=== PATIENT | female | born 1935 | race Caucasian/White ===

== ENCOUNTER 2016-04-06 16:59 | Emergency (ER) | payer OTHER, BC ==
[2016-04-06 17:20] VITALS: BP 151/51; PULSE 83; BMI 26.0
--- NOTE | 2016-04-06 18:23 | PDOC ---
History of Present Illness - History of Present Illness Initial Comments: 04/06/16 19:19 Patient is an 80 year old female with significant medical hx of anemia, Afib, COPD, CHF, HTN, hyperlipidemia, hypothyroidism, ESRD (on dialysis MWF), and overactive bladder who is presenting to the ED with bleeding to dialysis site since today. Patient reports noticing her left arm fistula was bleeding after dialysis today. Today the patient went for a full dialysis course that ended at 2 PM. She secured the bleeding at home but came to the ED for further evaluation. Patient was recently discharged from admission on 04/02/16 for chest pain. <Tanya Marshall - Last Filed: 04/06/16 19:18> <Cher Langston - Last Filed: 04/06/16 19:56> - General Stated Complaint: LT ARM BLEEDING FROM FISTULA Time Seen by Provider: 04/06/16 17:48 Past History <Tanya Marshall - Last Filed: 04/06/16 19:18> - Past Medical History Anemia: Yes Asthma: No Cancer: No Cardiac Disorders: Yes (a fib) CVA: No COPD: Yes CHF: Yes DVT: No Dementia: No Diabetes: No Dialysis: Yes (m,w,f) GI Disorders: No Disorders: Yes (OVERACTIVE BLADDER) HTN: Yes Hypercholesterolemia: Yes Kidney Stones: No (ESRD dyalisis --Wednesday) Liver Disease: No Seizures: No Thyroid Disease: Yes (HYPO.) - Surgical History Abdominal Surgery: No Appendectomy: No Cardiac Surgery: Yes (STENTS X 3;DEFIBRILLATOR 09/27/15) Cholecystectomy: No Lung Surgery: No Neurologic Surgery: No Orthopedic Surgery: No - Immunization History Immunization Up to Date: Yes - Psycho/Social/Smoking Cessation Hx Anxiety: No Suicidal Ideation: No Smoking History: Never smoked Have you smoked in the past 12 months: Yes Number of Cigarettes Smoked Daily: 0 If you are a former smoker, when did you quit?: 08/2014 Information on smoking cessation initiated: No 'Breaking Loose' booklet given: 08/10/15 Hx Alcohol Use: No Drug/Substance Use Hx: No Substance Use Type: None Hx Substance Use Treatment: No <Cher Langston - Last Filed: 04/06/16 19:56> - Past Medical History Allergies/Adverse Reactions: Allergies Allergy/AdvReac Type Severity Reaction Status Date / Time No Known Allergies Allergy Verified 04/06/16 17:20 Home Medications: Ambulatory Orders Aspirin [ASA -] 81 mg PO DAILY 09/19/15 Apixaban [Eliquis] 2.5 mg PO BID 11/26/15 Cyanocobalamin/FA/Pyridoxine [Folbee Tablet] 1 each PO DAILY 02/09/16 Calcium Carbonate/Vitamin D3 [Calcium 500 + Vit D Caplet] 500 mg PO BID Lorazepam 0.5 mg PO TID PRN 02/17/16 Losartan Potassium 25 mg PO DAILY 02/17/16 Pantoprazole Sodium [Protonix] 40 mg PO DAILY 02/17/16 Rosuvastatin Calcium [Crestor] 5 mg PO HS 02/17/16 Sevelamer HCl [Renagel] 800 mg PO TID 02/17/16 Metoprolol Succinate [Toprol XL -] 37.5 mg PO DAILY #0 04/02/16 Review of Systems - Review of Systems Comments:: 04/06/16 19:19 CONSTITUTIONAL: Absent: fever, chills, diaphoresis, generalized weakness, malaise, loss of appetite HEENT: Absent: rhinorrhea, nasal congestion, throat pain, throat swelling, difficulty swallowing, mouth swelling, ear pain, eye pain, visual changes CARDIOVASCULAR: Absent: chest pain, syncope, palpitations, irregular heart rate, lightheadedness , peripheral edema RESPIRATORY: Absent: cough, shortness of breath, dyspnea with exertion, orthopnea, wheezing, stridor, hemoptysis GASTROINTESTINAL: Absent: abdominal pain, abdominal distension, nausea, vomiting, diarrhea, constipation, melena, hematochezia GENITOURINARY: Absent: dysuria, frequency, urgency, hesitancy, hematuria, flank pain, genital pain MUSCULOSKELETAL: Absent: myalgia, arthralgia, joint swelling SKIN: Present: bleeding from left arm fistula Absent: rash, itching, pallor HEMATOLOGIC/IMMUNOLOGIC: Absent: easy bleeding, easy bruising, lymphadenopathy, frequent infections ENDOCRINE: Absent: unexplained weight gain, unexplained weight loss, heat intolerance, cold intolerance NEUROLOGIC: Absent: headache, focal weakness or paresthesia, dizziness, unsteady gait, seizure, mental status changes, bladder or bowel incontinence. PSYCHIATRIC: Absent: anxiety, depression, suicidal or homicidal ideation, hallucinations <Joanna,Tanya - Last Filed: 04/06/16 19:18> *Physical Exam - Vital Signs Last Vital Signs Temp Pulse Resp BP Pulse Ox 83 20 151/51 99 04/06/16 17:15 04/06/16 17:15 04/06/16 17:15 04/06/16 17:15 - Physical Exam Comments: 04/06/16 19:20 GENERAL: Well developed, well nourished. Awake and alert. No acute distress. HEENT: Normocephalic, atraumatic. PERRLA, EOMI. No conjunctival pallor. Sclera are non- icteric. Moist mucous membranes. Oropharynx is clear. NECK: Supple. Full ROM. No JVD. Carotid pulses 2+ and symmetric, without bruits. No thyromegaly. No lymphadenopathy. CARDIOVASCULAR: Regular rate and rhythm. No murmurs, rubs, or gallops. Distal pulses are 2+ and symmetric. PULMONARY: No evidence of respiratory distress. Lungs clear to auscultation bilaterally. No wheezing, rales or rhonchi. ABDOMINAL: Soft. Non-tender. Non-distended. No rebound or guarding. No organomegaly. Normoactive bowel sounds. MUSCULOSKELETAL: Normal range of motion at all joints. No bony deformities or tenderness. No CVA tenderness. EXTREMITIES: Left arm fistula that was under a gauze and tape, gauze had dry blood on it. Good pulses. No cyanosis. No clubbing. No edema. No calf tenderness. SKIN: Warm and dry. Normal capillary refill. No rashes. No jaundice. NEUROLOGICAL: Alert, awake, appropriate. Cranial nerves 2-12 intact. Normal speech. Gait is normal without ataxia. PSYCHIATRIC: Cooperative. Good eye contact. Appropriate mood and affect. <Tanya Marshall - Last Filed: 04/06/16 19:18> - Vital Signs Last Vital Signs Temp Pulse Resp BP Pulse Ox 83 20 151/51 99 04/06/16 17:15 04/06/16 17:15 04/06/16 17:15 04/06/16 17:15 <Cher Langston - Last Filed: 04/06/16 19:56> *DC/Admit/Observation/Transfer - Attestations Scribe Attestion: 04/06/16 19:28 Documentation prepared by Tanya Marshall, acting as medical physiologist for Cher Langston MD. <Tanya Marshall - Last Filed: 04/06/16 19:18> <Cher Langston - Last Filed: 04/06/16 19:56> Diagnosis at time of Disposition: Bleeding from dialysis shunt Qualifiers: Encounter type: initial encounter Qualified Code(s): T82.838A - Hemorrhage of vascular prosthetic devices, implants and grafts, initial encounter - Discharge Dispostion Disposition: HOME Condition at time of disposition: Stable - Referrals Referrals: Evelyn Swanson [Primary Care Provider] - - Patient Instructions Printed Discharge Instructions: DI for Arteriovenous Fistula for Dialysis Additional Instructions: If you have any further bleeding-call 911 immediately keep your dialysis appointment on Wed
== END 2016-04-06 20:10 | disposition home or self-care (01) ==
LOC: JER 16:59
DX: T82.838A Hemorrhage due to vascular prosthetic devices, implants and grafts, initial encounter (principal); Y83.8 Other surgical procedures as the cause of abnormal reaction of the patient, or of later complication, without mention of misadventure at the time of the procedure; Y92.098 Other place in other non-institutional residence as the place of occurrence of the external cause; I48.91 Unspecified atrial fibrillation; Z79.01 Long term (current) use of anticoagulants; I12.0 Hypertensive chronic kidney disease with stage 5 chronic kidney disease or end stage renal disease; N18.6 End stage renal disease; N17.8 Other acute kidney failure; Z99.2 Dependence on renal dialysis; E03.9 Hypothyroidism, unspecified
CPT/HCPCS: 99281-25

== ENCOUNTER 2016-04-29 11:17 | Inpatient (IN) | payer OTHER, BC ==
[2016-04-27 18:21] VITALS: BMI 25.8
--- NOTE | 2016-04-29 12:51 | HP ---
History & Physical Update - History History: No Change - Physical Physical: No Change - Assessment Assessment: No Change - Plan Plan: No Change (Patient presents on 04/29/16 for planned surgery, brachial aneursym repair and AV graft, with Dr. Carrasco. There are no changes from the H&P performed on 04/22/16, present in the paper chart.)
--- NOTE | 2016-04-29 13:07 | HP ---
Admitting History and Physical - Admission History of Present Illness: 80 yo female with ESRD on HD with left arm fistula which has failed to mature. She will need an AV graft. History Source: Medical Record Limitations to Obtaining History: Dementia - Past Medical History Cardiovascular: Yes: AFIB, CAD, CHF, HTN, AR, Hyperlipdemia Pulmonary: Yes: COPD Renal/: Yes: Renal Failure (on HD), Hemodialysis Heme/Onc: Yes: Anemia Psych: Yes: Anxiety, Depression Endocrine: Yes: Hypothyroidism - Past Surgical History Past Surgical History: Yes: AV Fistula/Graft, Stent - Smoking History Smoking history: Former smoker Have you smoked in the past 12 months: No Aproximately how many cigarettes per day: 0 If you are a former smoker, when did you quit?: 2YRS - Alcohol/Substance Use Hx Alcohol Use: No History of Substance Use: reports: None - Social History ADL: Independent History of Recent Travel: No Home Medications - Allergies Allergies/Adverse Reactions: Allergies Allergy/AdvReac Type Severity Reaction Status Date / Time No Known Allergies Allergy Verified 04/29/16 12:00 - Home Medications Home Medications: Ambulatory Orders RX: Aspirin [ASA -] 81 mg PO DAILY 09/19/15 RX: Apixaban [Eliquis] 2.5 mg PO BID 11/26/15 RX: Cyanocobalamin/FA/Pyridoxine [Folbee Tablet] 1 each PO DAILY 02/09/16 RX: Calcium Carbonate/Vitamin D3 [Calcium 500 + Vit D Caplet] 500 mg PO BID RX: Lorazepam 0.5 mg PO TID PRN 02/17/16 RX: Losartan Potassium 25 mg PO DAILY 02/17/16 RX: Pantoprazole Sodium [Protonix] 40 mg PO DAILY 02/17/16 RX: Rosuvastatin Calcium [Crestor] 5 mg PO HS 02/17/16 RX: Sevelamer HCl [Renagel] 800 mg PO TID 02/17/16 RX: Metoprolol Succinate [Toprol XL -] 37.5 mg PO DAILY #0 04/02/16 Physical Examination Vital Signs: Vital Signs Temperature 97.3 F L 04/29/16 12:05 Pulse Rate 87 04/29/16 12:05 Respiratory Rate 16 04/29/16 12:05 Blood Pressure 140/58 04/29/16 12:05 O2 Sat by Pulse Oximetry (%) 98 04/29/16 12:05 Constitutional: Yes: No Distress Eyes: Yes: EOM Intact HENT: Yes: WNL Neck: Yes: Supple Cardiovascular: Yes: Regular Rate and Rhythm Respiratory: Yes: Regular Gastrointestinal: Yes: Soft Extremities: Yes: Other (Left upper arm fistula with aneurysmal dilation distal end.) Labs: CBC, BMP 04/29/16 11:30 Problem List - Problems (1) ESRD (end stage renal disease) on dialysis Assessment/Plan: Failed AV fistula. Placement AV graft and ligation of venous aneurysm.
[2016-04-29] MEDS ORDERED: HEPARIN NA (PORCINE) 5,000 UNITS/ML 1ML VIAL ONE (13:10)
[2016-04-29] MEDS ORDERED: LIDOCAINE HCL 1%, 10 MG/ML (20ML VIAL) ONE (13:10)
[2016-04-29] MEDS ORDERED: POVIDONE-IODINE OINTMENT 10% - 28.4 GM TUBE ONE (13:11)
[2016-04-29] MEDS ORDERED: PROPOFOL 20 ML ONE ×3 (13:17→14:56)
[2016-04-29] MEDS ORDERED: MIDAZOLAM HCL 2 MG/2 ML SINGLE DOSE VIAL ONE (13:25)
[2016-04-29] MEDS ORDERED: ceFAZolin SODIUM 1 GM VIAL IVPB ONE (13:42)
[2016-04-29] MEDS ORDERED: ceFAZolin SODIUM 1 GM VIAL ONE (13:50)
[2016-04-29] MEDS ORDERED: PHENYLEPHRINE HCL 10 MG/1 ML SINGLE DOSE VIAL ONE (14:13)
[2016-04-29] MEDS ORDERED: ePHEDrine SULFATE 50 MG/1 ML AMPULE ONE (14:31)
[2016-04-29] MEDS ORDERED: GLYCOPYRROLATE 0.2 MG/1 ML VIAL ONE (15:07)
[2016-04-29] MEDS ORDERED: LIDOCAINE HCL 1%, 10 MG/ML (20ML VIAL) IJ ONE (15:23)
[2016-04-29] MEDS ORDERED: POVIDONE-IODINE OINTMENT 10% - 28.4 GM TUBE TP ONE (15:23)
[2016-04-29] MEDS ORDERED: ONDANSETRON 4 MG/2 ML VIAL IVPUSH PRN (15:25)
[2016-04-29] MEDS ORDERED: oxyCODONE HCL 5 MG TABLET PO PRN (15:25)
[2016-04-29] MEDS ORDERED: SODIUM CHLORIDE 1,000 ML IV SCH ×2 (15:30→15:50)
[2016-04-29] MEDS ORDERED: LORazepam 0.5 MG TABLET PO PRN ×2 (15:40→15:50)
--- NOTE | 2016-04-29 15:40 | OP ---
Operative Note - Note: Operative Date: 04/29/16 Pre-Operative Diagnosis: ESRD on HD Operation: Placement AV graft right arm. Ligation AV fistula right arm Findings: Patent axillary artery and vein Surgeon: Rogers Carrasco Sample Selector: Kita Luna Anesthesiologist/TRACK PATROL: Cher Lewis Estimated Blood Loss (mls): 50
[2016-04-29] MEDS ORDERED: HYDROmorphone HCL CARPU-JECT 1 MG/1 ML DISP.SYRIN IVPB PRN (15:45)
[2016-04-29] MEDS ORDERED: ONDANSETRON 4 MG/2 ML VIAL IVPB PRN (15:45)
--- NOTE | 2016-04-29 15:53 | SURG ---
Surgery Disability Advocate Note Disability Advocate: Kita Luna PA-C Date of Service: 04/29/16 Diagnosis: ESRD on HD Procedure: Placement AV graft left arm. Ligation AV fistula left arm I was present for the entirety of the operative procedure. For further detail, please refer to operative report. Visit type - Case Type Case Type: Scheduled Admission - New patient This patient is new to me today: Yes Date on this admission: 04/29/16
[2016-04-29] MEDS ORDERED: ROSUVASTATIN CA 5 MG TABLET (FP) PO SCH (22:00)
[2016-04-29] MEDS ORDERED: PATIENT'S OWN MEDICATION (NON-FORMULARY) (Sevelamer Hcl [Renagel] 800 MG) PO SCH (22:00)
[2016-04-29] MEDS ORDERED: METOPROLOL SUCCINATE 25 MG TAB.SR.24H (FP) ONE (23:00)
[2016-04-29] MEDS: ROSUVASTATIN CA 5 MG TABLET (FP) PO SCH (23:18)
[2016-04-29] MEDS: CALCIUM 500MG/VIT-D 200 UNITS COMBO TABLET (FP) PO SCH (23:19)
[2016-04-29] MEDS: oxyCODONE HCL 5 MG TABLET PO PRN (23:19)
[2016-04-29] MEDS: METOPROLOL SUCCINATE 25 MG TAB.SR.24H (FP) PO SCH (23:19)
[2016-04-30] MEDS: oxyCODONE HCL 5 MG TABLET PO PRN ×3 (06:25→21:35)
[2016-04-30] MEDS: ASPIRIN 81 MG CHEWABLE TABLETS PO SCH (09:05)
[2016-04-30] MEDS: CALCIUM 500MG/VIT-D 200 UNITS COMBO TABLET (FP) PO SCH ×2 (09:05→21:14)
[2016-04-30] MEDS: SEVELAMER CARBONATE 800 MG TAB (FP) PO SCH ×3 (09:05→17:52)
[2016-04-30] MEDS: PANTOPRAZOLE 40 MG TABLET (FP) PO SCH (09:05)
[2016-04-30] MEDS: METOPROLOL SUCCINATE 25 MG TAB.SR.24H (FP) PO SCH (09:06)
[2016-04-30] MEDS: LOSARTAN POTASSIUM 25 MG TABLET PO SCH (09:11)
[2016-04-30] MEDS: ENOXAPARIN NA (PORCINE) 30 MG/0.3 ML DISP.SYRIN SQ SCH (09:11)
[2016-04-30] MEDS ORDERED: LOSARTAN POTASSIUM 25 MG TABLET PO SCH (10:00)
[2016-04-30] MEDS ORDERED: PYRIDOXINE PO SCH ×2 (10:00)
[2016-04-30] MEDS ORDERED: ASPIRIN 81 MG CHEWABLE TABLETS PO SCH (10:00)
[2016-04-30] MEDS ORDERED: CYANOCOBALAMIN PO SCH ×2 (10:00)
[2016-04-30] MEDS ORDERED: [UNRECOGNIZED DRUG - OTHER] PO SCH ×2 (10:00)
[2016-04-30] MEDS ORDERED: FOLIC ACID PO SCH ×2 (10:00)
[2016-04-30] MEDS ORDERED: PANTOPRAZOLE 40 MG TABLET (FP) PO SCH (10:00)
[2016-04-30] MEDS ORDERED: METOPROLOL SUCCINATE 25 MG TAB.SR.24H (FP) PO SCH (10:00)
[2016-04-30] MEDS ORDERED: PARICALCITOL 5 MCG/ML VIAL IVPUSH ONE (11:30)
[2016-04-30 11:38] LABS: MCH 33.4 pg (25.7-33.7); MCHC 33.7 g/dl (32.0-36.0); MEAN CELL VOLUME 99.2 fl (80-96); MEAN PLT VOLUME 8.4 fl (7.5-11.1); PLATELET COUNT 223 K/MM3 (134-434); RDW 15.1 % (11.6-15.6); WHITE BLOOD COUNT 8.4 K/mm3 (4.0-10.0)
[2016-04-30 12:08] LABS: CALCIUM 8.2 mg/dL (8.5-10.1)
[2016-04-30 12:20] LABS: CREATININE 8.2 mg/dL (0.55-1.02)
--- NOTE | 2016-04-30 14:52 | PN ---
Progress Note (short form) - Note Progress Note: POD#1 Pt with complaints of chills. Her oral temp was OK today in HD. She had dialysis today via a PC. Vital Signs Period Temp Pulse Resp BP Sys/Lynch Pulse Ox Last 24 Hr 97.5 F-99.7 F 56-93 12-20 100-146/46-90 96-100 PE: GEN: appears comfortable LUE: +2 radial pulse, able to make fist. LUE with positive graft thrill. Other incision c/d/i. CBC, BMP 04/30/16 11:00 04/30/16 11:00 Problem List - Problems (1) ESRD (end stage renal disease) on dialysis Assessment/Plan: s/p ligation of LUE fistula with creation of AVG to this extremity s/p HD to day via PC will plan for discharge in the am continue all oral medications
--- NOTE | 2016-04-30 16:47 | CONSULT ---
Consult Consult Specialty:: Nephrology Reason for Consultation:: ESRD - History of Present Illness Chief Complaint: admited for av graft placement History of Present Illness: Pt is an 80 year old female with hx of ESRD, a-fib, COPD, CHF, CAD and HTN who was admitted for placement of av graft. She had the procedure last night. She is awake and alert. She missed HD yesterday. I arranged for HD today. SHe feels well. She denies chest pain or palpitations. She is able to move her hand. She has no complaints. - History Source History Provided By: Patient - Past Medical History Cardio/Vascular: Yes: AFIB, CAD, CHF, HTN, NH, Hyperlipdemia Pulmonary: Yes: COPD Renal/: Yes: Renal Failure (on HD), Hemodialysis Psych: Yes: Anxiety, Depression Endocrine: Yes: Hypothyroidism - Past Surgical History Past Surgical History: Yes: AV Fistula/Graft, Stent - Alcohol/Substance Use Hx Alcohol Use: No History of Substance Use: reports: None - Smoking History Smoking history: Former smoker Have you smoked in the past 12 months: No Aproximately how many cigarettes per day: 0 If you are a former smoker, when did you quit?: 2YRS - Social History Usual Living Arrangement: With Significant Other ADL: Independent History of Recent Travel: No Home Medications - Allergies Allergies/Adverse Reactions: Allergies Allergy/AdvReac Type Severity Reaction Status Date / Time No Known Allergies Allergy Verified 04/29/16 12:00 - Home Medications Home Medications: Ambulatory Orders Aspirin [ASA -] 81 mg PO DAILY 09/19/15 Apixaban [Eliquis] 2.5 mg PO BID 11/26/15 Cyanocobalamin/FA/Pyridoxine [Folbee Tablet] 1 each PO DAILY 02/09/16 Calcium Carbonate/Vitamin D3 [Calcium 500 + Vit D Caplet] 500 mg PO BID Lorazepam 0.5 mg PO TID PRN 02/17/16 Losartan Potassium 25 mg PO DAILY 02/17/16 Pantoprazole Sodium [Protonix] 40 mg PO DAILY 02/17/16 Rosuvastatin Calcium [Crestor] 5 mg PO HS 02/17/16 Sevelamer HCl [Renagel] 800 mg PO TID 02/17/16 Metoprolol Succinate [Toprol XL -] 37.5 mg PO DAILY #0 04/02/16 Family Disease History - Family Disease History Family History: Denies Review of Systems - Review of Systems Constitutional: reports: No Symptoms Eyes: reports: No Symptoms HENT: reports: No Symptoms Neck: reports: No Symptoms Cardiovascular: reports: No Symptoms Respiratory: reports: No Symptoms Gastrointestinal: reports: No Symptoms Genitourinary: reports: No Symptoms Musculoskeletal: reports: No Symptoms Integumentary: reports: No Symptoms Neurological: reports: No Symptoms Endocrine: reports: No Symptoms Hematology/Lymphatic: reports: No Symptoms Psychiatric: reports: No Symptoms Physical Exam Vital Signs: Vital Signs Temperature 99.2 F 04/30/16 15:43 Pulse Rate 96 H 04/30/16 15:43 Respiratory Rate 18 04/30/16 15:43 Blood Pressure 136/52 04/30/16 15:43 O2 Sat by Pulse Oximetry (%) 100 04/29/16 20:00 Constitutional: Yes: Calm Eyes: Yes: Conjunctiva Clear HENT: Yes: Atraumatic Neck: Yes: Supple Cardiovascular: Yes: Pulse Irregular, S1, S2 Respiratory: Yes: On Nasal O2 Gastrointestinal: Yes: Soft Musculoskeletal: Yes: WNL Extremities: Yes: Other (graft with thrilland bruit) Edema: No Neurological: Yes: Oriented Psychiatric: Yes: Oriented Labs: CBC, BMP 04/30/16 11:00 04/30/16 11:00 Problem List - Problems (2) CHF (congestive heart failure) Code(s): I50.9 - HEART FAILURE, UNSPECIFIED Qualifiers: Congestive heart failure type: unspecified congestive heart failure type Congestive heart failure chronicity: unspecified congestive heart failure chronicity Qualified Code(s): I50.9 - Heart failure, unspecified (3) Chest pain Code(s): R07.9 - CHEST PAIN, UNSPECIFIED Qualifiers: Chest pain type: unspecified Qualified Code(s): R07.9 - Chest pain, unspecified (5) Anemia Code(s): D64.9 - ANEMIA, UNSPECIFIED (6) COPD (chronic obstructive pulmonary disease) Code(s): J44.9 - CHRONIC OBSTRUCTIVE PULMONARY DISEASE, UNSPECIFIED Qualifiers : COPD type: unspecified COPD Qualified Code(s): J44.9 - Chronic obstructive pulmonary disease, unspecified Assessment/Plan Current Medications Generic Name Dose Route Start Last Admin Trade Name Freq PRN Reason Stop Dose Admin Aspirin 81 mg 04/30/16 10:00 04/30/16 09:05 Asa - PO 81 mg DAILY OBED Administration Calcium Carbonate/Cholecalciferol 1 tab 04/29/16 22:00 04/30/16 09:05 Os-Michael 500+D - PO 1 tab BID OBED Administration Enoxaparin Sodium 30 mg 04/30/16 10:00 04/30/16 09:11 Lovenox - SQ 30 mg DAILY OBED Administration Hydromorphone HCl 1 mg 04/29/16 15:45 Dilaudid Injection - IVPB Q3H PRN PAIN LEVEL 1-5 Lorazepam 0.5 mg 04/29/16 15:50 Ativan - PO TID PRN ANXIETY Losartan Potassium 25 mg 04/30/16 10:00 04/30/16 09:11 Cozaar - PO Not Given DAILY OBED Metoprolol Succinate 37.5 mg 04/30/16 10:00 04/30/16 09:06 Toprol Xl - PO 37.5 mg DAILY OBED Administration Non-Formulary Medication 1 each 04/30/16 10:00 Cyanocobalamin/Fa/Pyridoxine [Folbee Tablet] PO DAILY [facility] Ondansetron HCl 4 mg 04/29/16 15:45 Zofran Injection IVPB Q6H PRN NAUSEA Oxycodone HCl 5 mg 04/29/16 15:45 04/30/16 15:00 Roxicodone - PO 5 mg Q4H PRN Administration PAIN LEVEL 1-5 Pantoprazole Sodium 40 mg 04/30/16 10:00 04/30/16 09:05 Protonix - PO 40 mg DAILY [facility] Administration Rosuvastatin Calcium 5 mg 04/29/16 22:00 04/29/16 23:18 Crestor - PO 5 mg HS [facility] Administration Sevelamer Carbonate 800 mg 04/29/16 17:30 04/30/16 14:59 Renvela - PO Not Given TIDCM [facility] Impression 1. ESRD 2. s/p av graft placement 3. HTN 4. CHF 5. pleural effusion 6. hypothyroidism 7. hyperlipidemia 8. MVP 9. a-fib Plan - graft with thrill and bruit - HD today - resume home meds - will arrange for HD in am to get pt back on schedule - will follow Dr Zuluaga
[2016-04-30] MEDS ORDERED: PT OWN MED DRAWER 7, Y5N ONE (20:56)
[2016-04-30] MEDS: ROSUVASTATIN CA 5 MG TABLET (FP) PO SCH (21:14)
[2016-05-01 06:11] LABS: HEP B SURFACE AB Non Reactive (.)
[2016-05-01] MEDS ORDERED: PARICALCITOL 5 MCG/ML VIAL IVPUSH ONE (09:00)
[2016-05-01] MEDS: ENOXAPARIN NA (PORCINE) 30 MG/0.3 ML DISP.SYRIN SQ SCH (10:42)
[2016-05-01] MEDS: SEVELAMER CARBONATE 800 MG TAB (FP) PO SCH ×2 (10:42→13:00)
[2016-05-01] MEDS: CALCIUM 500MG/VIT-D 200 UNITS COMBO TABLET (FP) PO SCH (10:43)
[2016-05-01] MEDS: METOPROLOL SUCCINATE 25 MG TAB.SR.24H (FP) PO SCH (10:43)
[2016-05-01] MEDS: PANTOPRAZOLE 40 MG TABLET (FP) PO SCH (10:43)
[2016-05-01] MEDS: ASPIRIN 81 MG CHEWABLE TABLETS PO SCH (10:44)
[2016-05-01] MEDS: oxyCODONE HCL 5 MG TABLET PO PRN (10:44)
[2016-05-01] MEDS: LOSARTAN POTASSIUM 25 MG TABLET PO SCH (10:44)
--- NOTE | 2016-05-01 11:11 | OP ---
DATE OF OPERATION: 04/29/2016 SURGEON: Rogers Carrasco MD HEARING AID DISPENSER: MOSHE Luna PROCEDURE: Placement of arteriovenous graft of right arm and ligation of arteriovenous fistula of right arm. PREOPERATIVE DIAGNOSIS: End-stage renal disease with malfunctioning arteriovenous fistula of right arm. POSTOPERATIVE DIAGNOSIS: End-stage renal disease with malfunctioning arteriovenous fistula of right arm. ANESTHESIA: Fractional. ADVERTISING COLUMNIST: Cher Lewis CRNA OPERATIVE FINDINGS: The proximal brachial vein in the right axilla was patent from the old fistula. The distal portion of the fistula was dilated approximately 3 cm of length. The brachial and axillary arteries were of normal caliber. OPERATIVE PROCEDURE: Following routine patient identification with side and site verification, intravenous sedation was established. The right arm was prepped with ChloraPrep. Xylocaine 1% was infiltrated in the axilla, and a longitudinal incision made. Subcutaneous tissues were divided using cautery for hemostasis. The axillary vein was mobilized with sharp dissection. There was abundant scar tissue from previous surgery. Vein was encircled with the vessel loop and mobilized for approximately 3 cm of length. Adjacent axillary artery was mobilized and secured with a vessel loop. Side branches were ligated with silk ties and divided. Additional xylocaine was then infiltrated in the lower end of the arm through the old scar from prior AV fistula. The wound was opened and carried down to the fistula vein. The vein was encircled with 2-0 silk, which was then used to ligate the fistula. Wound was closed with interrupted suture of 3-0 Vicryl and skin rose marie. A curved metal tunnel was then used to create a loop tunnel with a counter incision near the antecubital crease, and a 4-7 mm PTFE graft passed through the tunneler into the tract with care not to twist or kink it. The axillary artery was then occluded with bulldog clamps and opened on exposed surface with a 6-mm arteriotomy. The small end of the graft was beveled and anastomosed to the side of the artery with a running suture of 6-0 Prolene. Prior to completion of the suture line, the graft was occluded with a clamp, and the artery was allowed to back-bleed and flush. The limb was filled with heparin solution. Suture line was completed, and the artery was released. Bleeding from the suture line was controlled with Surgicel. The graft was pulled taut in its tunnel. The axillary vein was occluded with clamp and vessel loop and opened with a longitudinal venotomy measuring approximately 15 mm. The graft was beveled and anastomosed to the side of the vein with running suture of 6-0 Prolene. Prior to completion of the suture line, the graft was allowed to back-bleed and flush with heparin saline solution. The proximal clamp was also removed to allow the graft to flush. The vein was ligated distal to the anastomosis with 2-0 silk to prevent back-bleeding. Suture line was completed, and all clamps removed. There was good flow through the graft with a strong pulse. Surgicel was applied to control bleeding, and when hemostasis was adequate, the wounds were closed with interrupted suture of 3-0 Vicryl and skin rose marie. Sterile dressings were applied, and the patient was taken to the recovery room in stable condition. Nakul BAILEY/[id number]
--- NOTE | 2016-05-01 12:18 | PN ---
Progress Note (short form) - Note Progress Note: On dialysis VSS Left arm wounds clean and dry. Graft pulse present Stable Home today.
[2016-05-01 12:51] VITALS: BP 125/61; PULSE 117; TEMP 97.4
--- NOTE | 2016-05-01 12:51 | PN ---
Progress Note, Physician History of Present Illness: Pt seen and examined at bedside. She tolerated HD today. She is eager to go home. She denies chest pain or shortness of breath. - Current Medication List Current Medications: Active Medications Aspirin (Asa -) 81 mg PO DAILY [facility] Last Admin: 05/01/16 10:44 Dose: 81 mg Calcium Carbonate/Cholecalciferol (Os-Michael 500+D -) 1 tab PO BID [facility] Last Admin: 05/01/16 10:43 Dose: 1 tab Enoxaparin Sodium (Lovenox -) 30 mg SQ DAILY [facility] Last Admin: 05/01/16 10:42 Dose: 30 mg Hydromorphone HCl (Dilaudid Injection -) 1 mg IVPB Q3H PRN PRN Reason: PAIN LEVEL 1-5 Lorazepam (Ativan -) 0.5 mg PO TID PRN PRN Reason: ANXIETY Last Admin: 05/01/16 07:47 Dose: 0.5 mg Losartan Potassium (Cozaar -) 25 mg PO DAILY [facility] Last Admin: 05/01/16 10:44 Dose: 25 mg Metoprolol Succinate (Toprol Xl -) 37.5 mg PO DAILY [facility] Last Admin: 05/01/16 10:43 Dose: 37.5 mg Non-Formulary Medication (Cyanocobalamin/Fa/Pyridoxine [Folbee Tablet]) 1 each PO DAILY [facility] Ondansetron HCl (Zofran Injection) 4 mg IVPB Q6H PRN PRN Reason: NAUSEA Oxycodone HCl (Roxicodone -) 5 mg PO Q4H PRN PRN Reason: PAIN LEVEL 1-5 Last Admin: 05/01/16 10:44 Dose: 5 mg Pantoprazole Sodium (Protonix -) 40 mg PO DAILY [facility] Last Admin: 05/01/16 10:43 Dose: 40 mg Rosuvastatin Calcium (Crestor -) 5 mg PO HS [facility] Last Admin: 04/30/16 21:14 Dose: 5 mg Sevelamer Carbonate (Renvela -) 800 mg PO TIDCM [facility] Last Admin: 05/01/16 10:42 Dose: 800 mg - Objective Vital Signs: Vital Signs Temperature 98 F 05/01/16 06:55 Pulse Rate 60 05/01/16 10:05 Respiratory Rate 18 05/01/16 10:05 Blood Pressure 150/60 05/01/16 10:05 O2 Sat by Pulse Oximetry (%) 93 L 04/30/16 21:00 Constitutional: Yes: Calm Eyes: Yes: Conjunctiva Clear HENT: Yes: Atraumatic Neck: Yes: Supple Cardiovascular: Yes: S1, S2 Respiratory: Yes: On Nasal O2 Gastrointestinal: Yes: Normal Bowel Sounds, Soft Musculoskeletal: Yes: WNL Extremities: Yes: Other (left arm graft with thrill and bruit) Edema: No Neurological: Yes: Oriented Psychiatric: Yes: Oriented Labs: CBC, BMP 04/30/16 11:00 04/30/16 11:00 Problem List - Problems (2) CHF (congestive heart failure) Code(s): I50.9 - HEART FAILURE, UNSPECIFIED Qualifiers: Congestive heart failure type: unspecified congestive heart failure type Congestive heart failure chronicity: unspecified congestive heart failure chronicity Qualified Code(s): I50.9 - Heart failure, unspecified (3) Chest pain Code(s): R07.9 - CHEST PAIN, UNSPECIFIED Qualifiers: Chest pain type: unspecified Qualified Code(s): R07.9 - Chest pain, unspecified (5) Anemia Code(s): D64.9 - ANEMIA, UNSPECIFIED (6) COPD (chronic obstructive pulmonary disease) Code(s): J44.9 - CHRONIC OBSTRUCTIVE PULMONARY DISEASE, UNSPECIFIED Qualifiers : COPD type: unspecified COPD Qualified Code(s): J44.9 - Chronic obstructive pulmonary disease, unspecified Assessment/Plan Current Medications Generic Name Dose Route Start Last Admin Trade Name Freq PRN Reason Stop Dose Admin Aspirin 81 mg 04/30/16 10:00 05/01/16 10:44 Asa - PO 81 mg DAILY [facility] Administration Calcium Carbonate/Cholecalciferol 1 tab 04/29/16 22:00 05/01/16 10:43 Os-Michael 500+D - PO 1 tab BID [facility] Administration Enoxaparin Sodium 30 mg 04/30/16 10:00 05/01/16 10:42 Lovenox - SQ 30 mg DAILY [facility] Administration Hydromorphone HCl 1 mg 04/29/16 15:45 Dilaudid Injection - IVPB Q3H PRN PAIN LEVEL 1-5 Lorazepam 0.5 mg 04/29/16 15:50 05/01/16 07:47 Ativan - PO 0.5 mg TID PRN Administration ANXIETY Losartan Potassium 25 mg 04/30/16 10:00 05/01/16 10:44 Cozaar - PO 25 mg DAILY [facility] Administration Metoprolol Succinate 37.5 mg 04/30/16 10:00 05/01/16 10:43 Toprol Xl - PO 37.5 mg DAILY [facility] Administration Non-Formulary Medication 1 each 04/30/16 10:00 Cyanocobalamin/Fa/Pyridoxine [Folbee Tablet] PO DAILY [facility] Ondansetron HCl 4 mg 04/29/16 15:45 Zofran Injection IVPB Q6H PRN NAUSEA Oxycodone HCl 5 mg 04/29/16 15:45 05/01/16 10:44 Roxicodone - PO 5 mg Q4H PRN Administration PAIN LEVEL 1-5 Pantoprazole Sodium 40 mg 04/30/16 10:00 05/01/16 10:43 Protonix - PO 40 mg DAILY [facility] Administration Rosuvastatin Calcium 5 mg 04/29/16 22:00 04/30/16 21:14 Crestor - PO 5 mg HS [facility] Administration Sevelamer Carbonate 800 mg 04/29/16 17:30 05/01/16 10:42 Renvela - PO 800 mg TIDCM [facility] Administration Impression 1. ESRD 2. s/p av graft placement 3. HTN 4. CHF 5. pleural effusion 6. hypothyroidism 7. hyperlipidemia 8. MVP 9. a-fib Plan - pt tolerated HD today and is now back on schedule - cont current meds - pt has HD scheduled as outpt for next week - can be discharged from renal standpoint - will need vascular surgery follow up as outpt - will follow Dr Zuluaga
== END 2016-05-01 13:28 | disposition home or self-care (01) | DRG 252 ==
LOC: JSAMEDAYSX 11:17 → EDSTATUS 13:00 → J6S 21:00
PROVIDERS: ADMIT Surgery; ATTEND Surgery
PROC: 3E033GC Introduction of Other Therapeutic Substance into Peripheral Vein, Percutaneous Approach (ICD-10-PCS; 2016-04-29)
PROC: 03170JD Bypass Right Brachial Artery to Upper Arm Vein with Synthetic Substitute, Open Approach (ICD-10-PCS; principal; 2016-04-29 13:00)
PROC: 05L90ZZ Occlusion of Right Brachial Vein, Open Approach (ICD-10-PCS; 2016-04-29 13:00)
PROC: 5A1D00Z (ICD-10-PCS; 2016-04-30)
DX: T82.41XA Breakdown (mechanical) of vascular dialysis catheter, initial encounter (principal); N18.6 End stage renal disease; I13.2 Hypertensive heart and chronic kidney disease with heart failure and with stage 5 chronic kidney disease, or end stage renal disease; J90 Pleural effusion, not elsewhere classified; I48.91 Unspecified atrial fibrillation; I25.10 Atherosclerotic heart disease of native coronary artery without angina pectoris; I50.9 Heart failure, unspecified; Z99.2 Dependence on renal dialysis; E03.9 Hypothyroidism, unspecified; E78.5 Hyperlipidemia, unspecified; I34.1 Nonrheumatic mitral (valve) prolapse; F41.8 Other specified anxiety disorders; Z87.891 Personal history of nicotine dependence; D64.9 Anemia, unspecified; I25.2 Old myocardial infarction; J44.9 Chronic obstructive pulmonary disease, unspecified
CPT/HCPCS: 36415; 80048; 84132; 85027; 86704; 86706; 86708; 86803; 87340; 94760; J1644

== ENCOUNTER 2016-05-11 08:12 | Inpatient (IN) | payer OTHER, BC ==
--- NOTE | 2016-05-11 08:38 | PDOC ---
History of Present Illness - General History Source: Patient, Old Records Exam Limitations: No Limitations - History of Present Illness Initial Comments: 05/11/16 09:33 The patient is an 80 year old female, with a significant past medical history of anemia, Afib s/p defibrillator on Eliquis, COPD (on home O2 as needed), CHF, HTN, hyperlipidemia, hypothyroidism, ESRD (on dialysis MWF, recent revision on her fistula) and overactive bladder, who presents to the emergency department with shortness of breath since approximately 9PM last night shortly after her defibrillator went off. The patient additionally reports intermittent palpitations and a productive cough. The patient states that she has been coughing up phlegm w/o hemopytsis. The patient reports that she needs to have dialysis today as her most recent dialysis was last Wednesday (05/08/2016). The patient does note that she feels more sob when laying flat, denies any leg swelling. The patient denies any chest pain prior to coming to the ED, but endorsed some CP after initial evaluation. The patient denies fever, chills, nausea, vomiting, diarrhea or melena/bpr. Allergies: None reported. Past Surgical History: Stents x 3, Defibrillator (09/27/2015). Social History: Former smoker (quit 08/2014). Denies alcohol or drug use. PCP: Dr. Swanson [employer] Boards Router: Dr. Chris Gluer Machine Operator: Dr. Lopez <Tanesha Moore - Last Filed: 05/11/16 11:05> - General History Source: Patient Exam Limitations: No Limitations <Shilo Chambers - Last Filed: 05/12/16 09:34> - General Chief Complaint: Shortness of Breath Stated Complaint: SOB Time Seen by Provider: 05/11/16 08:21 Past History <Tanesha Moore - Last Filed: 05/11/16 11:05> - Past Medical History Anemia: Yes Asthma: No Cancer: No Cardiac Disorders: Yes (a fib) CVA: No COPD: Yes CHF: Yes DVT: No Dementia: No Diabetes: No Dialysis: Yes (m,w,f) GI Disorders: No Disorders: Yes (OVERACTIVE BLADDER) HTN: Yes Hypercholesterolemia: Yes Kidney Stones: No (ESRD dyalisis --Wednesday) Liver Disease: No Seizures: No Thyroid Disease: Yes (HYPO.) - Surgical History Abdominal Surgery: No Appendectomy: No Cardiac Surgery: Yes (STENTS X 3;DEFIBRILLATOR 09/27/15) Cholecystectomy: No Lung Surgery: No ([facility] [phone]) Neurologic Surgery: No Orthopedic Surgery: No - Immunization History Immunization Up to Date: Yes - Psycho/Social/Smoking Cessation Hx Anxiety: No Suicidal Ideation: No Smoking History: Former smoker Have you smoked in the past 12 months: No Number of Cigarettes Smoked Daily: 0 If you are a former smoker, when did you quit?: 2YRS 'Breaking Loose' booklet given: 08/10/15 Hx Alcohol Use: No Drug/Substance Use Hx: No Substance Use Type: None Hx Substance Use Treatment: No <Shilo Chambers - Last Filed: 05/12/16 09:34> - Past Medical History Allergies/Adverse Reactions: Allergies Allergy/AdvReac Type Severity Reaction Status Date / Time No Known Allergies Allergy Verified 05/11/16 09:18 Home Medications: Ambulatory Orders Aspirin [ASA -] 81 mg PO DAILY 09/19/15 Apixaban [Eliquis] 2.5 mg PO BID 11/26/15 Cyanocobalamin/FA/Pyridoxine [Folbee Tablet] 1 each PO DAILY 02/09/16 Calcium Carbonate/Vitamin D3 [Calcium 500 + Vit D Caplet] 500 mg PO BID Lorazepam 0.5 mg PO TID PRN 02/17/16 Losartan Potassium 25 mg PO DAILY 02/17/16 Pantoprazole Sodium [Protonix] 40 mg PO DAILY 02/17/16 Rosuvastatin Calcium [Crestor] 5 mg PO HS 02/17/16 Sevelamer HCl [Renagel] 800 mg PO TID 02/17/16 Metoprolol Succinate [Toprol XL -] 37.5 mg PO DAILY #0 04/02/16 Oxycodone HCl [Roxicodone -] 5 mg PO Q6H #20 tablet MDD 4 05/01/16 Review of Systems - Review of Systems Able to Perform ROS?: Yes Comments:: 05/11/16 09:33 CONSTITUTIONAL: No reported: Fever, Chills, Diaphoresis, Generalized Weakness, Malaise, Loss of Appetite HEENT: No reported: Rhinorrhea, Nasal Congestion, Throat Pain, Throat Swelling, Difficulty Swallowing, Mouth Swelling, Ear Pain, Eye Pain, Visual Changes CARDIOVASCULAR: Reported: +Palpitations, +Chest pain. No reported: Syncope, Irregular Heart Rate, Lightheadedness, Peripheral Edema RESPIRATORY: Reported: +Cough, +Shortness of Breath. No reported: SOB with Exertion, Orthopnea, Wheezing, Stridor, Hemoptysis GASTROINTESTINAL: No reported: Abdominal pain, Abdominal Distension, Nausea, Vomiting, Diarrhea, Constipation, Melena, Hematochezia GENITOURINARY: No reported: Dysuria, Frequency, Urgency, Hesitancy, Flank Pain, Genital Pain MUSCULOSKELETAL: No reported: Myalgia, Arthralgia, Joint Swelling, Back pain, Neck Pain SKIN: No reported: Rash, Itching, Pallor HEMATOLOGIC/IMMUNOLOGIC: No reported: Easy Bleeding, Easy Bruising, Lymphadenopathy, Frequent infections ENDOCRINE: No reported: Unexplained Weight Gain, Unexplained Weight Loss, Heat Intolerance , Cold Intolerance NEUROLOGIC: No reported: Headache, Focal Weakness, Paresthesias, Vertigo, Lightheadedness, Unsteady Gait, Seizure, Mental Status Changes, Incontinence PSYCHIATRIC: No reported: Anxiety, Depression <Tanesha Moore - Last Filed: 05/11/16 11:05> *Physical Exam - Physical Exam Comments: 05/11/16 09:34 GENERAL: The patient is awake, alert, and fully oriented, mild tachpneia. HEAD: Normocephalic, atraumatic. EYES: Extraocular movements intact, sclera anicteric, conjunctiva clear. ENT: Normal voice, moist mucous membranes. NECK: Normal range of motion, supple. LUNGS/CHEST: Defibrillator in the L flank, Permcath in the R chest w/o tenderness, discharge, dressing c/d/i, breath sounds equal, clear to auscultation bilaterally. Mildly tachypneic. HEART: Tachycardic, no m/r/g. ABDOMEN: Soft, nontender, normoactive bowel sounds. No guarding, no rebound. No CVA tenderness. EXTREMITIES: Normal range of motion, no edema. No clubbing or cyanosis. No cords , erythema, or tenderness. NEUROLOGICAL: No facial asymmetry, normal speech, moving all 4 extremities spontaneously and symmetrically. PSYCH: Normal mood, normal affect. SKIN: Warm, dry, normal turgor. <Tanesha Moore - Last Filed: 05/11/16 11:05> Heart Score/ECG Review - ECG Impressions Comment:: 05/11/16 10:38 Twelve-lead EKG was performed and reviewed by me. NSR rate of 116 left axis deviation left bundle branch block <Shilo Chambers - Last Filed: 05/12/16 09:34> ED Treatment Course - LABORATORY CBC & Chemistry Diagram: 05/11/16 09:02 05/11/16 09:02 <Tanesha Moore - Last Filed: 05/11/16 11:05> - LABORATORY CBC & Chemistry Diagram: 05/11/16 09:02 05/11/16 09:02 - RADIOLOGY Radiology Studies Ordered: Category Date Time Status CHEST X-RAY PORTABLE* [RAD] Stat Radiology 05/11/16 08:31 Ordered <Shilo Chambers - Last Filed: 05/12/16 09:34> Medical Decision Making - Medical Decision Making 05/11/16 09:05 EXAM: RAD/CHEST X-RAY PORTABLE Reviewed By: Dr. Efraín Tarango IMPRESSION: Increased interstitial lung markings may reflect congestive changes. Increased density at the right base may reflect early infiltrate. Called Dr. Chris (Nephrology) at at 09:57, 11:05. Office will page physician, awaiting callback. Called Dr. Lopez (Cardiology) at at 10:01. Office will page physician, awaiting callback. Dr. Lopez returned call at 10:03, case discussed. Called Dr. Paulino at at 10:23. Office will page physician, awaiting callback. Dr. Paulino returned call at 10:25, case discussed. <Tanesha Moore - Last Filed: 05/11/16 11:05> - Medical Decision Making 05/11/16 08:36 80y F hx of afib on eliquis, anemia, chf, htn, hl, hypothyroidis, ESRD ( dialysis MWF (last dialysis F)), states her defibrillator went off last night, shortly afterwards pt complaining of sob, orthopnea and mild productive cough. On arrival the pt was tachypneic, tachycardic, and in moderate respiratory distress. pt noted to have low grade tmp on arrival differential includes acs, influenza, pna, viral syndrome, arrythmia, electrolyte derangement will ck cbc, cmp, mag, phos, cxr, ekg, influenza sepsis protocol initiated. A portion of this note was documented by scribe services under my direction. I have reviewed the details of the note, within reason, and agree with the documentation with the following case summary and management plan written by me 05/11/16 09:22 The patient's chest x-ray reveals mild congestion as well as possible right- sided infiltrate. As the patient had a recent admission within the past 3 months Will treat the patient for HCAP w/ azithro, vancomycin, cefepime pts cbc also reveals a leukocyotsis with a left shift. 05/11/16 09:44 paged [facility] for device 05/11/16 10:05 case mushtaq Schwartz ([phone]) - will come interrogate the device. case dw dr. Pop agreed with mangament, will see the pt later. pts lab sreviewed bnp elevated, slightly hyperkalemic - will need dialysis toda. trop borderline at .22 lactic acid slightly elevated at 2.2 will admit for treatment of pna, sob, chest pain pts HR elevated - pt did not take her meds this morning - will give her metoprolol for HR control 05/11/16 10:33 case was discussed with dr. Paulino agreed with admission stable for tele awaiting call back from dr. chris (nephrology) Case discussed in detail with admitting physician including history, physical exam and ancillary studies. Admitting physician has assumed care for the patient, will follow all pending diagnostics and will complete the evaluation and treatment. 05/11/16 10:38 05/11/16 11:06 pts hr significnatly improved, in no acute distress. HR curerntly at 98 bp also improved currently 124/67 CRITICAL CARE DOCUMENTATION: I spent ~35minutes of Critical Care time, excluding separately billable procedures, involving high complexity decision making to assess, manipulate and support vital system function(s) to treat single or multiple vital organ system failure and/or to prevent further life threatening deterioration of the patient' s condition. 05/11/16 15:06 Tech from [facility] arrived to interrogate device states that the device was likely oversensing the T waves and shocked due to this, he changed a setting (?smart pass?). he will discuss with dr. pop <Shilo Chambers - Last Filed: 05/12/16 09:34> *DC/Admit/Observation/Transfer - Attestations Scribe Attestion: 05/11/16 09:01 Documentation prepared by Tanesha Moore, acting as medical office receptionist assistant for Shilo Chambers MD. <Tanesha Moore - Last Filed: 05/11/16 11:05> - Discharge Dispostion Admit: Yes <Shilo Chambers - Last Filed: 05/12/16 09:34> Diagnosis at time of Disposition: ESRD needing dialysis COPD (chronic obstructive pulmonary disease) Qualifiers: COPD type: unspecified COPD Qualified Code(s): J44.9 - Chronic obstructive pulmonary disease, unspecified Chest pain Qualifiers: Chest pain type: unspecified Qualified Code(s): R07.9 - Chest pain, unspecified Pneumonia Qualifiers: Pneumonia type: due to unspecified organism Laterality: unspecified laterality Lung location: unspecified part of lung Qualified Code(s): J18.9 - Pneumonia, unspecified organism - Discharge Dispostion Condition at time of disposition: Guarded
[2016-05-11 09:12] LABS: BASOPHIL 0.6 % (0-2.0); EOSINOPHIL 0.5 % (0-4.5); MCH 31.9 pg (25.7-33.7); MCHC 32.4 g/dl (32.0-36.0); MEAN CELL VOLUME 98.3 fl (80-96); MEAN PLT VOLUME 8.6 fl (7.5-11.1); NEUTROPHILS 84.4 % (42.8-82.8); PLATELET COUNT 333 K/MM3 (134-434); RDW 15.4 % (11.6-15.6)
[2016-05-11 09:18] LABS: VENOUS BLOOD GAS HCO3 24.8 meq/L (22-29)
[2016-05-11 09:20] LABS: VENOUS PH 7.27 (7.31-7.41)
[2016-05-11] MEDS ORDERED: CEFEPIME HCL 2 GM VIAL (RESTRICTED TO ID) IVPB ONE (09:22)
[2016-05-11] MEDS ORDERED: AZITHROMYCIN IVPB 500 MG in DEXTROSE 5%-WATER - 250 ML IVPB ONE (09:22)
[2016-05-11] MEDS ORDERED: VANCOMYCIN 1,000 MG in DEXTROSE 5%-WATER - 250 ML IVPB ONE (09:22)
[2016-05-11 09:24] LABS: INR 1.44 (0.82-1.09)
[2016-05-11 09:30] VITALS: BMI 26.2
[2016-05-11] MEDS ORDERED: ALBUTEROL SO4 2.5/IPRATROPIUM 0.5 INH SOL 3 ML VIAL.NEB. NEB ONE (09:32)
[2016-05-11] MEDS ORDERED: ACETAMINOPHEN 325 MG TABLET (FP) PO ONE (09:32)
[2016-05-11 09:35] LABS: ALBUMIN 3.1 g/dl (3.4-5.0); BILIRUBIN,TOTAL 0.5 mg/dL (0.2-1.0); MAGNESIUM 2.2 mg/dL (1.8-2.4); PHOSPHOROUS 4.4 mg/dL (2.5-4.9); TOT PROT 7.3 g/dl (6.4-8.2)
[2016-05-11] MEDS ORDERED: AZITHROMYCIN IVPB 250 ML IVPB ONE (09:37)
[2016-05-11] MEDS ORDERED: VANCOMYCIN 1 GRAM (PRE-DOCKED) 250 ML IVPB ONE (09:37)
[2016-05-11] MEDS ORDERED: CEFEPIME 100 ML IVPB ONE (09:38)
[2016-05-11 09:39] LABS: TROPONIN I 0.22 ng/ml (0.00-0.05)
[2016-05-11 09:44] LABS: CREATININE 7.5 mg/dL (0.55-1.02)
[2016-05-11] MEDS ORDERED: METOPROLOL TARTRATE 5 MG/5 ML VIAL IVPUSH ONE ×2 (09:58→23:00)
--- NOTE | 2016-05-11 10:05 | CON.CARD ---
Consult Consult Specialty:: Cardiology - History of Present Illness History of Present Illness: The patient is an 80 year old female, with a significant past medical history of anemia, Afib s/p defibrillator on eliquis, COPD (on home O2 as needed), CHF, HTN, hyperlipidemia, hypothyroidism, ESRD (on dialysis MWF, recent revision on her fistula) and overactive bladder, who presents to the emergency department with shortness of breath since approximately 9PM last night shortly after her defibrillator went off. The patient additionally reports intermittent palpitations and a productive cough. The patient states that she has been coughing up phlegm w/o hemopytsis. The patient reports that she needs to have dialysis today as her most recent dialysis was last Wednesday (05/08/2016). Pt does note that she feels more sob when laying flat, deines any leg swelling. The patient denies any chest pain prior to coming to the ED, but endorsed some CP after initial evaluation. The patient denies fever, chills, nausea, vomiting, diarrhea or melena/bpr. PMH ASHD drug eluting stent placement in proximal RCA on June 04, 2009. [address] Bradford VALE of mid RCA September 13, 2014 Dr. Etienne ESRD on HD 2015 HTN Hyperlipidemia LBBB Moderate AR NSTEMI August 2014 PAD TAFFY PULLER right JOSE and EIA September 03, 2014 Dr. Etienne s/p sudden cardiac [place] 2016 Severely reduced systolic function Subcutaneus AICD [employer] 2015 SVT rx with cardizem June 2015 [facility] - History Source History Provided By: Patient, Medical Record - Past Medical History Cardio/Vascular: Yes: AFIB, CAD, CHF, HTN, [place], Hyperlipdemia Pulmonary: Yes: COPD Renal/: Yes: Renal Failure (on HD), Hemodialysis Psych: Yes: Anxiety, Depression Endocrine: Yes: Hypothyroidism - Past Surgical History Past Surgical History: Yes: AV Fistula/Graft, Stent - Alcohol/Substance Use Hx Alcohol Use: No History of Substance Use: reports: None - Smoking History Smoking history: Former smoker Have you smoked in the past 12 months: No Aproximately how many cigarettes per day: 0 If you are a former smoker, when did you quit?: 2YRS - Social History Usual Living Arrangement: With Significant Other ADL: Independent History of Recent Travel: No Home Medications - Allergies Allergies/Adverse Reactions: Allergies Allergy/AdvReac Type Severity Reaction Status Date / Time No Known Allergies Allergy Verified 05/11/16 09:18 - Home Medications Home Medications: Ambulatory Orders Aspirin [ASA -] 81 mg PO DAILY 09/19/15 Apixaban [Eliquis] 2.5 mg PO BID 11/26/15 Cyanocobalamin/FA/Pyridoxine [Folbee Tablet] 1 each PO DAILY 02/09/16 Calcium Carbonate/Vitamin D3 [Calcium 500 + Vit D Caplet] 500 mg PO BID Lorazepam 0.5 mg PO TID PRN 02/17/16 Losartan Potassium 25 mg PO DAILY 02/17/16 Pantoprazole Sodium [Protonix] 40 mg PO DAILY 02/17/16 Rosuvastatin Calcium [Crestor] 5 mg PO HS 02/17/16 Sevelamer HCl [Renagel] 800 mg PO TID 02/17/16 Metoprolol Succinate [Toprol XL -] 37.5 mg PO DAILY #0 04/02/16 Oxycodone HCl [Roxicodone -] 5 mg PO Q6H #20 tablet MDD 4 05/01/16 Review of Systems - Review of Systems Constitutional: reports: No Symptoms Eyes: reports: No Symptoms HENT: reports: No Symptoms Neck: reports: No Symptoms Cardiovascular: reports: Shortness of Breath Gastrointestinal: reports: No Symptoms Genitourinary: reports: No Symptoms Breasts: reports: No Symptoms Reported Musculoskeletal: reports: No Symptoms Integumentary: reports: No Symptoms Neurological: reports: No Symptoms Endocrine: reports: No Symptoms Hematology/Lymphatic: reports: No Symptoms Psychiatric: reports: No Symptoms Vital Signs: Vital Signs Temperature 100.5 F H 05/11/16 08:17 Pulse Rate 110 H 05/11/16 08:17 Respiratory Rate 22 05/11/16 08:17 Blood Pressure 175/93 05/11/16 08:17 O2 Sat by Pulse Oximetry (%) 88 L 05/11/16 08:17 Constitutional: Yes: Well Nourished, No Distress, Calm Eyes: Yes: WNL, Conjunctiva Clear, EOM Intact HENT: Yes: WNL, Atraumatic, Normocephalic Neck: Yes: WNL, Supple, Trachea Midline Respiratory: Yes: WNL, Regular, CTA Bilaterally Gastrointestinal: Yes: WNL, Normal Bowel Sounds Renal/: Yes: WNL Cardiovascular: Yes: WNL, Regular Rate and Rhythm Musculoskeletal: Yes: WNL Extremities: Yes: WNL Integumentary: Yes: WNL Neurological: Yes: WNL, Alert, Oriented ...Motor Strength: WNL Psychiatric: Yes: WNL, Alert, Oriented - Other Data Labs, Other Data: CBC, BMP 05/11/16 09:02 05/11/16 09:02 INR, PTT INR 1.44 (0.82-1.09) H 05/11/16 09:02 Troponin, BNP 05/11/16 05/11/16 09:02 09:02 Troponin I 0.22 H B-Natriuretic Peptide 62428.27 H Troponin, BNP 05/11/16 05/11/16 09:02 09:02 Troponin I 0.22 H B-Natriuretic Peptide 67542.27 H Imaging - Results Chest X-ray: Image Reviewed (chf) EKG: Image Reviewed (sr LBBB) Problem List - Problems (1) A-fib Qualifiers: Atrial fibrillation type: unspecified Qualified Code(s): I48.91 - Unspecified atrial fibrillation (2) Acute on chronic systolic and diastolic heart failure, NYHA class 3 Code(s): I50.43 - ACUTE ON CHRONIC COMBINED SYSTOLIC AND DIASTOLIC HRT FAIL (3) Anxiety Code(s): F41.9 - ANXIETY DISORDER, UNSPECIFIED (4) Atrial fibrillation with tachycardic ventricular rate Code(s): I48.91 - UNSPECIFIED ATRIAL FIBRILLATION (5) Bleeding from dialysis shunt Code(s): T82.838A - HEMORRHAGE DUE TO VASCULAR PROSTH DEV/GRFT, INIT Qualifiers: Encounter type: initial encounter Qualified Code(s): T82.838A - Hemorrhage of vascular prosthetic devices, implants and grafts, initial encounter (6) CHF (congestive heart failure) Code(s): I50.9 - HEART FAILURE, UNSPECIFIED Qualifiers: Congestive heart failure type: unspecified congestive heart failure type Congestive heart failure chronicity: unspecified congestive heart failure chronicity Qualified Code(s): I50.9 - Heart failure, unspecified (7) Chest pain Code(s): R07.9 - CHEST PAIN, UNSPECIFIED Qualifiers: Chest pain type: unspecified Qualified Code(s): R07.9 - Chest pain, unspecified (9) Cough Code(s): R05 - COUGH (10) DVT prophylaxis Code(s): VML1993 - (13) ESRD needing dialysis Code(s): N18.6 - END STAGE RENAL DISEASE (14) Fever Code(s): R50.9 - FEVER, UNSPECIFIED Qualifiers: Fever type: unspecified Qualified Code(s): R50.9 - Fever, unspecified (15) HTN (hypertension) Code(s): I10 - ESSENTIAL (PRIMARY) HYPERTENSION Qualifiers: Hypertension type: essential hypertension Qualified Code(s): I10 - Essential (primary) hypertension (16) Hyperlipidemia Code(s): E78.5 - HYPERLIPIDEMIA, UNSPECIFIED (17) Hypokalemia Code(s): E87.6 - HYPOKALEMIA (18) Palpitations Code(s): R00.2 - PALPITATIONS (19) Paroxysmal atrial fibrillation Code(s): I48.0 - PAROXYSMAL ATRIAL FIBRILLATION (20) Pneumonia Code(s): J18.9 - PNEUMONIA, UNSPECIFIED ORGANISM Qualifiers: Pneumonia type: due to unspecified organism Laterality: unspecified laterality Lung location: unspecified part of lung Qualified Code(s): J18.9 - Pneumonia, unspecified organism (21) Shortness of breath Code(s): R06.02 - SHORTNESS OF BREATH (22) Steal syndrome as complication of dialysis access Code(s): T82.898A - H COMPLICATION OF VASCULAR PROSTH DEV/GRFT, INIT Qualifiers: Encounter type: initial encounter Qualified Code(s): T82.898A - Other specified complication of vascular prosthetic devices, implants and grafts , initial encounter (23) [place] Code(s): I47.2 - VENTRICULAR TACHYCARDIA (24) Ventricular fibrillation Code(s): I49.01 - VENTRICULAR FIBRILLATION (25) Volume overload Code(s): E87.70 - FLUID OVERLOAD, UNSPECIFIED Qualifiers: Hypervolemia type: unspecified Qualified Code(s): E87.70 - Fluid overload, unspecified (26) Anemia Code(s): D64.9 - ANEMIA, UNSPECIFIED (27) Anxiety and depression Code(s): F41.9 - ANXIETY DISORDER, UNSPECIFIED F32.9 - MAJOR DEPRESSIVE DISORDER, SINGLE EPISODE, UNSPECIFIED (28) Aortic dissection Code(s): I71.00 - DISSECTION OF UNSPECIFIED SITE OF AORTA (29) CAD (coronary artery disease) Code(s): I25.10 - ATHSCL HEART DISEASE OF [place] CORONARY ARTERY W/O ANG PCTRS Qualifiers: (30) COPD (chronic obstructive pulmonary disease) Code(s): J44.9 - CHRONIC OBSTRUCTIVE PULMONARY DISEASE, UNSPECIFIED Qualifiers : COPD type: unspecified COPD Qualified Code(s): J44.9 - Chronic obstructive pulmonary disease, unspecified (31) Cholelithiasis Code(s): K80.20 - CALCULUS OF GALLBLADDER W/O CHOLECYSTITIS W/O OBSTRUCTION (32) Chronic systolic (congestive) heart failure Code(s): I50.22 - CHRONIC SYSTOLIC (CONGESTIVE) HEART FAILURE (33) ESRD (end stage renal disease) Code(s): N18.6 - END STAGE RENAL DISEASE (34) Hypertriglyceridemia Code(s): E78.1 - PURE HYPERGLYCERIDEMIA (35) Status post coronary artery stent placement Code(s): Z95.5 - PRESENCE OF CORONARY ANGIOPLASTY IMPLANT AND GRAFT (36) Thyroid disorder Code(s): E07.9 - DISORDER OF THYROID, UNSPECIFIED Assessment/Plan s/p subcutaneus ICD shock ASHD drug eluting stent placement in proximal RCA on June 04, 2009. [address] Bradford VALE of mid RCA September 13, 2014 Dr. Etienne ESRD on HD 2015 HTN Hyperlipidemia LBBB Moderate AR NSTEMI August 2014 PAD TAFFY PULLER right JOSE and EIA September 03, 2014 Dr. Etienne s/p sudden cardiac [place] 2015 h/o Severely reduced systolic function last echo in 2015 - mildly reduced EF hyperkalemia SVT rx with cardizem June 2015 [facility] Plan telemetry hd restart meds icd interrogation Further treatment will depend on the results of ICD interrogation.
[2016-05-11] MEDS ORDERED: METOPROLOL TARTRATE 5 MG/5 ML VIAL ONE (10:53)
[2016-05-11] MEDS ORDERED: HEPARIN NA (PORCINE) 5,000 UNITS/ML 1ML VIAL IVPUSH ONE (11:54)
--- NOTE | 2016-05-11 11:54 | CONSULT ---
Consult Consult Specialty:: Nephrology Reason for Consultation:: ESRD - History of Present Illness Chief Complaint: productive cough and shortness of breath History of Present Illness: Pt is an 80 year old female with pmhx of ESRD, a-fib, HTN, CHF, and hypothyroidism who presents to the ER with cough and shortness of breath. She says this began after her defibrillator went off. She does get palpitations at times. She denies chest pain. Cough is productive of yellow sputum. She does complain of chills. She last had HD on Wednesday and is due today. - Past Medical History Cardio/Vascular: Yes: AFIB, CAD, CHF, HTN, [place], Hyperlipdemia Pulmonary: Yes: COPD Renal/: Yes: Renal Failure (on HD), Hemodialysis Psych: Yes: Anxiety, Depression Endocrine: Yes: Hypothyroidism - Past Surgical History Past Surgical History: Yes: AV Fistula/Graft, Stent - Alcohol/Substance Use Hx Alcohol Use: No History of Substance Use: reports: None - Smoking History Smoking history: Former smoker Have you smoked in the past 12 months: No Aproximately how many cigarettes per day: 0 If you are a former smoker, when did you quit?: 2YRS - Social History Usual Living Arrangement: With Significant Other ADL: Independent History of Recent Travel: No Home Medications - Allergies Allergies/Adverse Reactions: Allergies Allergy/AdvReac Type Severity Reaction Status Date / Time No Known Allergies Allergy Verified 05/11/16 09:18 - Home Medications Home Medications: Ambulatory Orders Aspirin [ASA -] 81 mg PO DAILY 09/19/15 Apixaban [Eliquis] 2.5 mg PO BID 11/26/15 Cyanocobalamin/FA/Pyridoxine [Folbee Tablet] 1 each PO DAILY 02/09/16 Calcium Carbonate/Vitamin D3 [Calcium 500 + Vit D Caplet] 500 mg PO BID Lorazepam 0.5 mg PO TID PRN 02/17/16 Losartan Potassium 25 mg PO DAILY 02/17/16 Pantoprazole Sodium [Protonix] 40 mg PO DAILY 02/17/16 Rosuvastatin Calcium [Crestor] 5 mg PO HS 02/17/16 Sevelamer HCl [Renagel] 800 mg PO TID 02/17/16 Metoprolol Succinate [Toprol XL -] 37.5 mg PO DAILY #0 04/02/16 Oxycodone HCl [Roxicodone -] 5 mg PO Q6H #20 tablet MDD 4 05/01/16 Family Disease History - Family Disease History Family History: Denies Review of Systems - Review of Systems Constitutional: reports: Chills, Fever, Malaise Eyes: reports: No Symptoms HENT: reports: No Symptoms Neck: reports: No Symptoms Cardiovascular: reports: Shortness of Breath Respiratory: reports: SOB, SOB on Exertion Genitourinary: reports: No Symptoms Musculoskeletal: reports: Muscle Weakness Neurological: reports: No Symptoms Endocrine: reports: No Symptoms Hematology/Lymphatic: reports: No Symptoms Psychiatric: reports: No Symptoms Physical Exam Vital Signs: Vital Signs Temperature 100.5 F H 05/11/16 08:25 Pulse Rate 97 H 05/11/16 11:05 Respiratory Rate 20 05/11/16 11:05 Blood Pressure 125/47 05/11/16 11:05 O2 Sat by Pulse Oximetry (%) 100 05/11/16 11:05 Constitutional: Yes: Calm Eyes: Yes: Conjunctiva Clear HENT: Yes: Atraumatic Neck: Yes: Supple Cardiovascular: Yes: S1, S2 Respiratory: Yes: On Nasal O2, Wheezes Gastrointestinal: Yes: Soft Musculoskeletal: Yes: Muscle Weakness Edema: No Neurological: Yes: Oriented Psychiatric: Yes: Oriented Labs: Laboratory Tests 05/11/16 05/11/16 05/11/16 09:02 09:02 09:02 WBC 16.0 H D Hgb 9.8 L Plt Count 333 D VBG pH POC VBG pCO2 POC VBG pO2 Sodium 141 Potassium 5.9 H Chloride 99 Carbon Dioxide 25 Anion Gap 17 H BUN 81 H Creatinine 7.5 H* Creat Clearance w eGFR 5.19 Random Glucose 118 H Lactic Acid Calcium 9.0 Phosphorus 4.4 D Total Bilirubin 0.5 D B-Natriuretic Peptide 57899.27 H 05/11/16 05/11/16 05/11/16 09:02 09:15 11:50 WBC Hgb Plt Count VBG pH 7.27 L POC VBG pCO2 55.5 H POC VBG pO2 26.1 L Sodium Potassium Chloride Carbon Dioxide Anion Gap BUN Creatinine Creat Clearance w eGFR Random Glucose Lactic Acid 2.255 H* 2.646 H* Calcium Phosphorus Total Bilirubin B-Natriuretic Peptide Imaging - Results Chest X-ray: Report Reviewed Assessment/Plan Current Medications Generic Name Dose Route Start Last Admin Trade Name Henry PRN Reason Stop Dose Admin Heparin Sodium (Porcine) 1,000 unit 05/11/16 11:54 Heparin - IVPUSH 05/11/16 11:55 ONCE ONE Heparin Sodium (Porcine) 500 unit 05/11/16 12:00 Heparin - IVPUSH 05/11/16 14:01 Q1H OBED Paricalcitol 2 mcg 05/11/16 11:54 Zemplar - IVPUSH 05/11/16 11:55 ONCE ONE Last Vital Signs Temp Pulse Resp BP Pulse Ox 100.5 F H 97 H 20 125/47 100 05/11/16 08:25 05/11/16 11:05 05/11/16 11:05 05/11/16 11:05 05/11/16 11:05 Impression 1. ESRD 2. PNA 3. HTN 4. CHF 5. pleural effusion 6. hypothyroidism 7. hyperlipidemia 8. MVP 9. a-fib Plan - will arrange for HD today - recommend HD at bedside while pt on tele monitor - resume home meds - monitor blood pressure - called HD for prescription - cont abx - cardiology evaluation - 3 hrs, 1000 heparin, 500 maintenance, permacath, hectorol 2 mcg, aranesp 35 weekly, [address] Zuluaga
[2016-05-11] MEDS ORDERED: SODIUM CHLORIDE 500 ML IV STA (12:31)
[2016-05-11] MEDS ORDERED: SODIUM CHLORIDE 250 ML IV STA (12:34)
[2016-05-11] MEDS ORDERED: ALPRAZolam 0.25 MG TABLET PO ONE (16:06)
[2016-05-11] MEDS ORDERED: ALPRAZolam 0.25 MG TABLET ONE (16:08)
[2016-05-11] MEDS: HEPARIN NA (PORCINE) 5,000 UNITS/ML 1ML VIAL IVPUSH SCH ×3 (19:00→21:00)
--- NOTE | 2016-05-11 20:22 | HP ---
Admitting History and Physical - Primary Care Physician PCP: Pao Paulino - Admission History of Present Illness: The patient is an 80 year old female, with a significant past medical history of anemia, Afib s/p defibrillator on Eliquis, COPD (on home O2 as needed), CHF, HTN, hyperlipidemia, hypothyroidism, ESRD (on dialysis MWF, recent revision on her fistula) and overactive bladder, who presents to the emergency department with shortness of breath since approximately 9PM last night shortly after her defibrillator went off. The patient additionally reports intermittent palpitations and a productive cough. The patient states that she has been coughing up phlegm w/o hemopytsis. The patient reports that she needs to have dialysis today as her most recent dialysis was last Wednesday (05/08/2016). The patient does note that she feels more sob when laying flat, denies any leg swelling. The patient denies any chest pain prior to coming to the ED, but endorsed some CP after initial evaluation. - Past Medical History Cardiovascular: Yes: AFIB, CAD, CHF, HTN, [place], Hyperlipdemia Pulmonary: Yes: COPD Renal/: Yes: Renal Failure (on HD), Hemodialysis Heme/Onc: Yes: Anemia Psych: Yes: Anxiety, Depression Endocrine: Yes: Hypothyroidism - Past Surgical History Past Surgical History: Yes: AV Fistula/Graft, Stent - Smoking History Smoking history: Former smoker Have you smoked in the past 12 months: No Aproximately how many cigarettes per day: 0 If you are a former smoker, when did you quit?: 2YRS - Alcohol/Substance Use Hx Alcohol Use: No History of Substance Use: reports: None - Social History ADL: Independent History of Recent Travel: No Home Medications - Allergies Allergies/Adverse Reactions: Allergies Allergy/AdvReac Type Severity Reaction Status Date / Time No Known Allergies Allergy Verified 05/11/16 09:18 - Home Medications Home Medications: Ambulatory Orders Aspirin [ASA -] 81 mg PO DAILY 09/19/15 Apixaban [Eliquis] 2.5 mg PO BID 11/26/15 Cyanocobalamin/FA/Pyridoxine [Folbee Tablet] 1 each PO DAILY 02/09/16 Calcium Carbonate/Vitamin D3 [Calcium 500 + Vit D Caplet] 500 mg PO BID Lorazepam 0.5 mg PO TID PRN 02/17/16 Losartan Potassium 25 mg PO DAILY 02/17/16 Pantoprazole Sodium [Protonix] 40 mg PO DAILY 02/17/16 Rosuvastatin Calcium [Crestor] 5 mg PO HS 02/17/16 Sevelamer HCl [Renagel] 800 mg PO TID 02/17/16 Metoprolol Succinate [Toprol XL -] 37.5 mg PO DAILY #0 04/02/16 Oxycodone HCl [Roxicodone -] 5 mg PO Q6H #20 tablet MDD 4 05/01/16 Physical Examination Vital Signs: Vital Signs Temperature 97.5 F L 05/11/16 17:29 Pulse Rate 108 H 05/11/16 19:00 Respiratory Rate 20 05/11/16 19:00 Blood Pressure 147/71 05/11/16 19:00 O2 Sat by Pulse Oximetry (%) 98 05/11/16 18:00 Constitutional: Yes: No Distress HENT: Yes: Atraumatic Neck: Yes: Supple Cardiovascular: Yes: Regular Rate and Rhythm Respiratory: Yes: CTA Bilaterally Gastrointestinal: Yes: Normal Bowel Sounds Extremities: Yes: WNL Neurological: Yes: Alert, Oriented Problem List - Problems (1) ESRD needing dialysis Code(s): N18.6 - END STAGE RENAL DISEASE (2) COPD (chronic obstructive pulmonary disease) Code(s): J44.9 - CHRONIC OBSTRUCTIVE PULMONARY DISEASE, UNSPECIFIED Qualifiers : COPD type: unspecified COPD Qualified Code(s): J44.9 - Chronic obstructive pulmonary disease, unspecified (3) A-fib Qualifiers: Atrial fibrillation type: unspecified Qualified Code(s): I48.91 - Unspecified atrial fibrillation (4) Atrial fibrillation with tachycardic ventricular rate Code(s): I48.91 - UNSPECIFIED ATRIAL FIBRILLATION (5) Defibrillator discharge Code(s): Z45.02 - ENCNTR FOR ADJUST AND MGMT OF AUTOMATIC IMPLNTBL CARD DEFIB (6) Pneumonia Code(s): J18.9 - PNEUMONIA, UNSPECIFIED ORGANISM Qualifiers: Pneumonia type: due to unspecified organism Laterality: unspecified laterality Lung location: unspecified part of lung Qualified Code(s): J18.9 - Pneumonia, unspecified organism (7) Acute on chronic systolic and diastolic heart failure, NYHA class 3 Code(s): I50.43 - ACUTE ON CHRONIC COMBINED SYSTOLIC AND DIASTOLIC HRT FAIL Assessment/Plan Laboratory Tests 05/11/16 05/11/16 05/11/16 09:02 09:02 09:02 WBC 16.0 H D RBC 3.06 L Hgb 9.8 L Hct 30.1 L MCV 98.3 H MCHC 32.4 RDW 15.4 Plt Count 333 D MPV 8.6 Neutrophils % 84.4 H Lymphocytes % 7.3 L D Monocytes % 7.2 D Eosinophils % 0.5 D Basophils % 0.6 D INR 1.44 H PTT (Actin FS) VBG pH POC VBG pCO2 POC VBG pO2 Sodium 141 Potassium 5.9 H Chloride 99 Carbon Dioxide 25 Anion Gap 17 H BUN 81 H Creatinine 7.5 H* Creat Clearance w eGFR 5.19 Random Glucose 118 H Lactic Acid Calcium 9.0 Phosphorus 4.4 D Magnesium 2.2 Total Bilirubin 0.5 D AST 52 H D ALT 24 D Alkaline Phosphatase 166 H Creatine Kinase 88 Troponin I 0.22 H B-Natriuretic Peptide Total Protein 7.3 Albumin 3.1 L Blood Type Antibody Screen Spec Expiration Date 05/11/16 05/11/16 05/11/16 09:02 09:02 09:02 WBC RBC Hgb Hct MCV MCHC RDW Plt Count MPV Neutrophils % Lymphocytes % Monocytes % Eosinophils % Basophils % INR PTT (Actin FS) 36.8 H D VBG pH POC VBG pCO2 POC VBG pO2 Sodium Potassium Chloride Carbon Dioxide Anion Gap BUN Creatinine Creat Clearance w eGFR Random Glucose Lactic Acid 2.255 H* Calcium Phosphorus Magnesium Total Bilirubin AST ALT Alkaline Phosphatase Creatine Kinase Troponin I B-Natriuretic Peptide 77600.27 H Total Protein Albumin Blood Type Antibody Screen Spec Expiration Date 05/11/16 05/11/16 05/11/16 09:02 09:15 11:50 WBC RBC Hgb Hct MCV MCHC RDW Plt Count MPV Neutrophils % Lymphocytes % Monocytes % Eosinophils % Basophils % INR PTT (Actin FS) VBG pH 7.27 L POC VBG pCO2 55.5 H POC VBG pO2 26.1 L Sodium Potassium Chloride Carbon Dioxide Anion Gap BUN Creatinine Creat Clearance w eGFR Random Glucose Lactic Acid 2.646 H* Calcium Phosphorus Magnesium Total Bilirubin AST ALT Alkaline Phosphatase Creatine Kinase Troponin I B-Natriuretic Peptide Total Protein Albumin Blood Type Cancelled Antibody Screen Cancelled Spec Expiration Date Cancelled 05/11/16 11:50 WBC RBC Hgb Hct MCV MCHC RDW Plt Count MPV Neutrophils % Lymphocytes % Monocytes % Eosinophils % Basophils % INR PTT (Actin FS) VBG pH POC VBG pCO2 POC VBG pO2 Sodium Potassium Chloride Carbon Dioxide Anion Gap BUN Creatinine Creat Clearance w eGFR Random Glucose Lactic Acid Calcium Phosphorus Magnesium Total Bilirubin AST ALT Alkaline Phosphatase Creatine Kinase Troponin I B-Natriuretic Peptide Total Protein Albumin Blood Type A POSITIVE Antibody Screen Negative Spec Expiration Date Active Medications Generic Name Dose Route Start Last Admin Trade Name Freq PRN Reason Stop Dose Admin Heparin Sodium (Porcine) 1,000 unit 05/11/16 11:54 Heparin - IVPUSH 05/11/16 11:55 ONCE ONE Heparin Sodium (Porcine) 500 unit 05/11/16 12:00 Heparin - IVPUSH 05/11/16 14:01 Q1H OBED Paricalcitol 2 mcg 05/11/16 11:54 Zemplar - IVPUSH 05/11/16 11:55 ONCE ONE A/P 1. ESRD ON HD NEPRO CONSULT 2. PNA IV ABX ID CONSULT 3. HTN STABLE ON MEDS 4. CHF 5. pleural effusion 6. hypothyroidism 7. hyperlipidemia 8. MVP 9. a-fib CARDIO CONSULT CONTINUE HOME MEDS
[2016-05-11] MEDS ORDERED: oxyCODONE HCL 5 MG TABLET PO PRN (20:30)
[2016-05-11] MEDS ORDERED: PARICALCITOL 5 MCG/ML VIAL IVPUSH ONE (21:00)
[2016-05-11] MEDS ORDERED: PATIENT'S OWN MEDICATION (NON-FORMULARY) (Sevelamer Hcl [Renagel] 800 MG) PO SCH (22:00)
[2016-05-11 22:05] LABS: URINE APPEARANCE CLOUDY; URINE BILIRUBIN NEGATIVE (NEGATIVE); URINE BLOOD NEGATIVE (NEGATIVE); URINE COLOR YELLOW; URINE GLUCOSE (UA) NEGATIVE (NEGATIVE); URINE KETONE NEGATIVE (NEGATIVE); URINE NITRITE NEGATIVE (NEGATIVE); URINE UROBILINOGEN NEGATIVE E.U./dl (0.2-1.0)
[2016-05-11 22:06] LABS: URINE LEUK ESTERASE 2+ (NEGATIVE); URINE PROTEIN 1+ (NEGATIVE)
[2016-05-11 22:07] LABS: URINE BACTERIA RARE /hpf (NONE SEEN); URINE HYALINE CAST 3 /lpf; URINE MUCUS RARE; URINE RBC 1 /hpf (0-3); URINE WBC 24 /hpf (3-5)
[2016-05-11] MEDS: ROSUVASTATIN CA 5 MG TABLET (FP) PO SCH (22:52)
[2016-05-11] MEDS: APIXABAN 2.5 MG TABLET PO SCH (22:52)
[2016-05-11] MEDS: LORazepam 0.5 MG TABLET PO PRN (22:52)
--- NOTE | 2016-05-12 00:24 | EKG ---
Test Reason : Blood Pressure : / mmHG Vent. Rate : 117 BPM Atrial Rate : 117 BPM P-R Int : 000 ms QRS Dur : 126 ms QT Int : 310 ms P-R-T Axes : 000 -84 079 degrees QTc Int : 432 ms SINUS TACHYCARDIA WITH SINUS ARRHYMIA VS. MULTIFOCAL ATRIAL TACHYCARDIA LEFT AXIS DEVIATION POOR R WAVE PROGRESSION ABNORMAL ECG WHEN COMPARED WITH ECG OF 11-MAY-2016 08:43, LIKELY NO SIGNIFICANT CHANGES Confirmed by HOMERO OLSEN, HOLLY ([id number]) on 05/12/2016 12:24:24 AM Referred By: Confirmed By:HOLLY VALENTIN MD
--- NOTE | 2016-05-12 00:26 | EKG ---
Test Reason : Blood Pressure : / mmHG Vent. Rate : 116 BPM Atrial Rate : 107 BPM P-R Int : 208 ms QRS Dur : 122 ms QT Int : 380 ms P-R-T Axes : 085 268 073 degrees QTc Int : 528 ms UNDETERMINED RHYTHM NONSPECIFIC INTRAVENTRICULAR CONDUCTION DEFECT ABNORMAL ECG WHEN COMPARED WITH ECG OF 31-MAR-2016 09:46, VENT. RATE HAS INCREASED Confirmed by HOLLY VALENTIN MD ([id number]) on 05/12/2016 12:25:47 AM Referred By: Confirmed By:HOLLY VALENTIN MD
[2016-05-12] MEDS: SEVELAMER CARBONATE 800 MG TAB (FP) PO SCH ×3 (08:14→17:45)
[2016-05-12] MEDS ORDERED: METOPROLOL SUCCINATE 25 MG TAB.SR.24H (FP) PO SCH (10:00)
--- NOTE | 2016-05-12 10:00 | PN ---
Progress Note, Physician Chief Complaint: Pt anxious; +productive cough; no chest pain or palpitations History of Present Illness: The patient is an 80 year old white female, with a significant past medical history of anemia, Afib s/p ICD 09/2015 ; on Eliquis, COPD (on home O2 as needed ), systolic (borderline reduced LVEF)/diastolic CHF, HTN, hyperlipidemia, hypothyroidism, ESRD (on dialysis MWF, recent revision on her fistula); anxiety/ depression/panic, and overactive bladder, who presents to the emergency department with shortness of breath since approximately 9PM last night shortly after her defibrillator went off. The patient additionally reports intermittent palpitations and a productive cough that began last weekend. The patient states that she has been coughing up phlegm w/o hemopytsis. The patient reports that she needs to have dialysis today as her most recent dialysis was last Wednesday (05/08/2016). The patient does note that she feels more sob when laying flat, denies any leg swelling. The patient denies any chest pain prior to coming to the ED, but endorsed some CP after initial evaluation. The patient denies fever, chills , nausea, vomiting, diarrhea or melena/bpr. Allergies: None reported. Past Surgical History: Stents x 3, Defibrillator (09/27/2015). Social History: Former smoker (quit 08/2014). Denies alcohol or drug use. PCP: Dr. Swanson Remotely Piloted Vehicle Controller: Dr. Chris Violin Repairer: Dr. Lopez - Current Medication List Current Medications: Active Medications Apixaban (Eliquis -) 2.5 mg PO BID OBED Last Admin: 05/11/16 22:52 Dose: 2.5 mg Aspirin (Asa -) 81 mg PO DAILY OBED Lorazepam (Ativan -) 0.5 mg PO Q8H PRN PRN Reason: ANXIETY Last Admin: 05/11/16 22:52 Dose: 0.5 mg Losartan Potassium (Cozaar -) 25 mg PO DAILY [facility] Metoprolol Succinate (Toprol Xl -) 50 mg PO DAILY [facility] Metoprolol Tartrate (Lopressor Injection -) 2.5 mg IVPUSH Q4H PRN PRN Reason: HR >/= 130 Oxycodone HCl (Roxicodone -) 5 mg PO Q6H PRN Pantoprazole Sodium (Protonix -) 40 mg PO DAILY [facility] Rosuvastatin Calcium (Crestor -) 5 mg PO HS [facility] Last Admin: 05/11/16 22:52 Dose: 5 mg Sevelamer Carbonate (Renvela -) 800 mg PO TIDCM [facility] - Objective Vital Signs: Vital Signs Temperature 97.0 F L 05/12/16 06:00 Pulse Rate 98 H 05/12/16 06:00 Respiratory Rate 18 05/12/16 06:00 Blood Pressure 127/64 05/12/16 06:00 O2 Sat by Pulse Oximetry (%) 99 05/11/16 21:00 Constitutional: Yes: Anxious, Mild Distress, Thin Eyes: Yes: WNL HENT: Yes: WNL Neck: Yes: WNL Cardiovascular: Yes: Pulse Irregular Respiratory: Yes: SOB on Exertion (mild expiratory wheezes bibasal clear when pt changes from supine to sitting position; mild left basal rales remain) Gastrointestinal: Yes: Soft ...Rectal Exam: Yes: Deferred Genitourinary: No: Anuria Breast(s): Yes: WNL Musculoskeletal: Yes: Muscle Weakness Extremities: Yes: Cool, Other (left AV graft) Edema: No Peripheral Pulses WNL: No Integumentary: Yes: Bruising Wound/Incision: Yes: Meenu Intact Neurological: Yes: Alert, Oriented, Weakness Psychiatric: Yes: Alert, Oriented, Other (anxiety/depression/panic) Labs: INR, PTT INR 1.44 (0.82-1.09) H 05/11/16 09:02 Problem List - Problems (1) COPD (chronic obstructive pulmonary disease) Code(s): J44.9 - CHRONIC OBSTRUCTIVE PULMONARY DISEASE, UNSPECIFIED Qualifiers : COPD type: unspecified COPD Qualified Code(s): J44.9 - Chronic obstructive pulmonary disease, unspecified (2) A-fib Assessment/Plan: pt had periods of rapid AF last night-->boluses of IV metoprolol. Periods of MAT. Will increase metoprolol ER from 37.5 to 50 mg PO daily; f/u HR and BP. On apixaban for AC; on ASA (hx CAD). Qualifiers: Atrial fibrillation type: unspecified Qualified Code(s): I48.91 - Unspecified atrial fibrillation (3) Acute on chronic systolic and diastolic heart failure, NYHA class 3 Code(s): I50.43 - ACUTE ON CHRONIC COMBINED SYSTOLIC AND DIASTOLIC HRT FAIL (4) Bleeding from dialysis shunt Assessment/Plan: F/u with vascular surgeon. On apixaban and ASA. Code(s): T82.838A - HEMORRHAGE DUE TO VASCULAR PROSTH DEV/GRFT, INIT Qualifiers: Encounter type: initial encounter Qualified Code(s): T82.838A - Hemorrhage of vascular prosthetic devices, implants and grafts, initial encounter (5) Cough Assessment/Plan: leukocytosis; gives hx of "fever" at home and in ER (though not seen on ER notes ). Negative blood cultures; +REGULATORY COMPLIANCE SPECIALIST swab for influenza. Code(s): R05 - COUGH (6) ESRD (end stage renal disease) on dialysis Assessment/Plan: Underwent HD 05/11/16; f/u electrolytes (eg, K+ was 5.9 prior to HD). (7) HTN (hypertension) Assessment/Plan: On losartan and metoprolol ER (the latter increased to 50 mg daily); f/u HR and BP. Code(s): I10 - ESSENTIAL (PRIMARY) HYPERTENSION Qualifiers: Hypertension type: essential hypertension Qualified Code(s): I10 - Essential (primary) hypertension (8) Hyperlipidemia Assessment/Plan: on statin; LDL cholesterol < 70mg/dL. Code(s): E78.5 - HYPERLIPIDEMIA, UNSPECIFIED (9) Palpitations Code(s): R00.2 - PALPITATIONS (10) Shortness of breath Code(s): R06.02 - SHORTNESS OF BREATH (11) Status post coronary artery stent placement Assessment/Plan: s/p coronary stents 09/18. On ASA and apixaban. Code(s): Z95.5 - PRESENCE OF CORONARY ANGIOPLASTY IMPLANT AND GRAFT (12) Panic anxiety syndrome Assessment/Plan: Pt is on lorazepam, which she usually takes prior to HD. She had two panic attacks while in ER yesterday. She is under a great deal of emotional stress at home (eg possible need to move to "a fci" so as not to place burden of taking care of her on her ), and is depressed that all her time is taken up with HD and doctors' visits. She plans, as outpatient, to try to regain some independent time by having fewer office visits, if possible. She agrees to speak with a psychologist, but wants to do so as an outpatient. An SSRI may be of benefit. Code(s): F41.0 - PANIC DISORDER WITHOUT AGORAPHOBIA (13) Defibrillator discharge Assessment/Plan: ICD algorhythm adjusted. Metoprolol ER increased from 37.5 to 50 mg daily; F/u HR and BP. F/u electrolytes (K+ 5.9 prior to HD 05/11/16). Code(s): Z45.02 - ENCNTR FOR ADJUST AND MGMT OF AUTOMATIC IMPLNTBL CARD DEFIB
[2016-05-12] MEDS: ASPIRIN 81 MG CHEWABLE TABLETS PO SCH (10:14)
[2016-05-12] MEDS: METOPROLOL SUCCINATE 50 MG TAB.SR.24H (FP) PO SCH (10:15)
[2016-05-12] MEDS: PANTOPRAZOLE 40 MG TABLET (FP) PO SCH (10:15)
[2016-05-12] MEDS: LOSARTAN POTASSIUM 25 MG TABLET PO SCH (10:15)
[2016-05-12] MEDS: APIXABAN 2.5 MG TABLET PO SCH ×2 (10:15→21:28)
--- NOTE | 2016-05-12 15:43 | CONSULT ---
Consult Consult Specialty:: infectious diseases Referred by:: Reason for Consultation:: cough sob pna - History of Present Illness Chief Complaint: unable to breath,sob History of Present Illness: 80 year old white female, with a significant past medical history of anemia, Afib s/p defibrillator on Eliquis, COPD (on home O2 as needed), systolic CHF, HTN, hyperlipidemia, hypothyroidism, ESRD (on dialysis MWF, recent revision on her fistula); anxiety/depression/panic, and overactive bladder, who presents to the emergency department with shortness of breath since approximately 9PM last night shortly after her defibrillator went off. patient states that she hs been very uncomfortable and having issues,She also reports sputum production which is greenish in color and gets very sob even when she comes back from the bathroom or on little activity currently stable patient is ahemodialysis patient and receives regular dialysis - History Source History Provided By: Patient, Medical Record Limitations to Obtaining History: No Limitations - Past Medical History Cardio/Vascular: Yes: AFIB, CAD, CHF, HTN, HI, Hyperlipdemia Pulmonary: Yes: COPD Renal/: Yes: Renal Failure (on HD), Hemodialysis Psych: Yes: Anxiety, Depression Endocrine: Yes: Hypothyroidism - Past Surgical History Past Surgical History: Yes: AV Fistula/Graft, Stent - Alcohol/Substance Use Hx Alcohol Use: No History of Substance Use: reports: None - Smoking History Smoking history: Former smoker Have you smoked in the past 12 months: No Aproximately how many cigarettes per day: 0 If you are a former smoker, when did you quit?: 2YRS - Social History Usual Living Arrangement: With Significant Other ADL: Independent History of Recent Travel: No Home Medications - Allergies Allergies/Adverse Reactions: Allergies Allergy/AdvReac Type Severity Reaction Status Date / Time No Known Allergies Allergy Verified 05/11/16 09:18 - Home Medications Home Medications: Ambulatory Orders Aspirin [ASA -] 81 mg PO DAILY 09/19/15 Apixaban [Eliquis] 2.5 mg PO BID 11/26/15 Cyanocobalamin/FA/Pyridoxine [Folbee Tablet] 1 each PO DAILY 02/09/16 Calcium Carbonate/Vitamin D3 [Calcium 500 + Vit D Caplet] 500 mg PO BID Lorazepam 0.5 mg PO TID PRN 02/17/16 Losartan Potassium 25 mg PO DAILY 02/17/16 Pantoprazole Sodium [Protonix] 40 mg PO DAILY 02/17/16 Rosuvastatin Calcium [Crestor] 5 mg PO HS 02/17/16 Sevelamer HCl [Renagel] 800 mg PO TID 02/17/16 Metoprolol Succinate [Toprol XL -] 37.5 mg PO DAILY #0 04/02/16 Oxycodone HCl [Roxicodone -] 5 mg PO Q6H #20 tablet MDD 4 05/01/16 Review of Systems - Review of Systems Constitutional: reports: No Symptoms Eyes: reports: No Symptoms HENT: reports: No Symptoms Neck: reports: No Symptoms Cardiovascular: reports: No Symptoms Respiratory: reports: Cough, SOB, SOB on Exertion, Wheezing, Other (sputum production) Gastrointestinal: reports: No Symptoms Genitourinary: reports: No Symptoms Musculoskeletal: reports: No Symptoms Integumentary: reports: No Symptoms Neurological: reports: No Symptoms Endocrine: reports: No Symptoms Hematology/Lymphatic: reports: No Symptoms Psychiatric: reports: No Symptoms Physical Exam Vital Signs: Vital Signs Temperature 98.3 F 05/12/16 15:08 Pulse Rate 98 H 05/12/16 15:08 Respiratory Rate 18 05/12/16 15:08 Blood Pressure 107/41 05/12/16 15:08 O2 Sat by Pulse Oximetry (%) 98 05/12/16 09:00 Constitutional: Yes: Calm, Moderate Distress Eyes: Yes: Conjunctiva Clear HENT: Yes: Atraumatic Neck: Yes: Supple Cardiovascular: Yes: Regular Rate and Rhythm, Pulse Irregular Respiratory: Yes: On Nasal O2, Poor Air Entry (vey poor enry), Tachypnea, Wheezes Gastrointestinal: Yes: Normal Bowel Sounds, Soft Musculoskeletal: Yes: WNL Extremities: Yes: WNL Neurological: Yes: Alert, Oriented Psychiatric: Yes: Alert, Oriented Imaging - Results Chest X-ray: Report Reviewed, Image Reviewed Assessment/Plan patient evaluated and findings noted,patient is an immunocompromised patient patient is showing infiltrate in the lung which i think is pneumonia as she also ahs greenish sputum production Problem List - Problems (1) COPD (chronic obstructive pulmonary disease) Code(s): J44.9 - CHRONIC OBSTRUCTIVE PULMONARY DISEASE, UNSPECIFIED Qualifiers : COPD type: unspecified COPD Qualified Code(s): J44.9 - Chronic obstructive pulmonary disease, unspecified (2) A-fib Qualifiers: Atrial fibrillation type: unspecified Qualified Code(s): I48.91 - Unspecified atrial fibrillation (3) Acute on chronic systolic and diastolic heart failure, NYHA class 3 Code(s): I50.43 - ACUTE ON CHRONIC COMBINED SYSTOLIC AND DIASTOLIC HRT FAIL (4) Bleeding from dialysis shunt Code(s): T82.838A - HEMORRHAGE DUE TO VASCULAR PROSTH DEV/GRFT, INIT Qualifiers: Encounter type: initial encounter Qualified Code(s): T82.838A - Hemorrhage of vascular prosthetic devices, implants and grafts, initial encounter (5) Cough Code(s): R05 - COUGH (8) HTN (hypertension) Code(s): I10 - ESSENTIAL (PRIMARY) HYPERTENSION Qualifiers: Hypertension type: essential hypertension Qualified Code(s): I10 - Essential (primary) hypertension (9) Hyperlipidemia Code(s): E78.5 - HYPERLIPIDEMIA, UNSPECIFIED (10) Palpitations Code(s): R00.2 - PALPITATIONS (11) Paroxysmal atrial fibrillation Code(s): I48.0 - PAROXYSMAL ATRIAL FIBRILLATION (12) Shortness of breath Code(s): R06.02 - SHORTNESS OF BREATH (13) Anxiety and depression Code(s): F41.9 - ANXIETY DISORDER, UNSPECIFIED F32.9 - MAJOR DEPRESSIVE DISORDER, SINGLE EPISODE, UNSPECIFIED (14) Status post coronary artery stent placement Code(s): Z95.5 - PRESENCE OF CORONARY ANGIOPLASTY IMPLANT AND GRAFT (15) Panic anxiety syndrome Code(s): F41.0 - PANIC DISORDER WITHOUT AGORAPHOBIA pneumonia plan i have started patient on zosyn incentive adeline neb rest as per primary neprho on case
--- NOTE | 2016-05-12 16:47 | PN ---
Progress Note, Physician History of Present Illness: Pt seen and examined at bedside. She tolerated HD last night. She feels better than she did yesterday but still has shortness of breath. She feels that the cough is a little better. - Current Medication List Current Medications: Active Medications Albuterol/Ipratropium (Duoneb -) 1 amp NEB Q4H PRN PRN Reason: SHORTNESS OF BREATH Apixaban (Eliquis -) 2.5 mg PO BID [facility] Last Admin: 05/12/16 10:15 Dose: 2.5 mg Aspirin (Asa -) 81 mg PO DAILY [facility] Last Admin: 05/12/16 10:14 Dose: 81 mg Piperacillin Sod/Tazobactam Sod (Zosyn 2.25gm Ivpb (Pre-Docked)) 50 mls @ 100 mls/hr IVPB Q8H-IV OBED Lorazepam (Ativan -) 0.5 mg PO Q8H PRN PRN Reason: ANXIETY Last Admin: 05/11/16 22:52 Dose: 0.5 mg Losartan Potassium (Cozaar -) 25 mg PO DAILY [facility] Last Admin: 05/12/16 10:15 Dose: 25 mg Metoprolol Succinate (Toprol Xl -) 50 mg PO DAILY [facility] Last Admin: 05/12/16 10:15 Dose: 50 mg Metoprolol Tartrate (Lopressor Injection -) 2.5 mg IVPUSH Q4H PRN PRN Reason: HR >/= 130 Oxycodone HCl (Roxicodone -) 5 mg PO Q6H PRN Pantoprazole Sodium (Protonix -) 40 mg PO DAILY [facility] Last Admin: 05/12/16 10:15 Dose: 40 mg Rosuvastatin Calcium (Crestor -) 5 mg PO HS [facility] Last Admin: 05/11/16 22:52 Dose: 5 mg Sevelamer Carbonate (Renvela -) 800 mg PO TIDCM [facility] Last Admin: 05/12/16 12:04 Dose: 800 mg - Objective Vital Signs: Vital Signs Temperature 98.3 F 05/12/16 15:08 Pulse Rate 98 H 05/12/16 15:08 Respiratory Rate 18 05/12/16 15:08 Blood Pressure 107/41 05/12/16 15:08 O2 Sat by Pulse Oximetry (%) 98 05/12/16 09:00 Constitutional: Yes: Calm Eyes: Yes: Conjunctiva Clear HENT: Yes: Atraumatic Neck: Yes: Supple Cardiovascular: Yes: Pulse Irregular, S1, S2 Respiratory: Yes: Diminished, On Nasal O2 Gastrointestinal: Yes: Soft Genitourinary: Yes: WNL Musculoskeletal: Yes: Muscle Weakness Extremities: Yes: Other (access with thrill) Edema: No Integumentary: Yes: WNL Neurological: Yes: Oriented Psychiatric: Yes: Oriented Labs: INR, PTT INR 1.44 (0.82-1.09) H 05/11/16 09:02 Problem List - Problems (1) Defibrillator discharge Code(s): Z45.02 - ENCNTR FOR ADJUST AND MGMT OF AUTOMATIC IMPLNTBL CARD DEFIB (2) ESRD needing dialysis Code(s): N18.6 - END STAGE RENAL DISEASE (3) Panic anxiety syndrome Code(s): F41.0 - PANIC DISORDER WITHOUT AGORAPHOBIA (4) Pneumonia Code(s): J18.9 - PNEUMONIA, UNSPECIFIED ORGANISM Qualifiers: Pneumonia type: due to unspecified organism Laterality: unspecified laterality Lung location: unspecified part of lung Qualified Code(s): J18.9 - Pneumonia, unspecified organism (5) COPD (chronic obstructive pulmonary disease) Code(s): J44.9 - CHRONIC OBSTRUCTIVE PULMONARY DISEASE, UNSPECIFIED Qualifiers : COPD type: unspecified COPD Qualified Code(s): J44.9 - Chronic obstructive pulmonary disease, unspecified (6) A-fib Qualifiers: Atrial fibrillation type: unspecified Qualified Code(s): I48.91 - Unspecified atrial fibrillation (7) CHF (congestive heart failure) Code(s): I50.9 - HEART FAILURE, UNSPECIFIED Qualifiers: Congestive heart failure type: unspecified congestive heart failure type Congestive heart failure chronicity: unspecified congestive heart failure chronicity Qualified Code(s): I50.9 - Heart failure, unspecified (8) Cough Code(s): R05 - COUGH Assessment/Plan Current Medications Generic Name Dose Route Start Last Admin Trade Name Freq PRN Reason Stop Dose Admin Albuterol/Ipratropium 1 amp 05/12/16 15:02 Duoneb - NEB Q4H PRN SHORTNESS OF BREATH Apixaban 2.5 mg 05/11/16 22:00 05/12/16 10:15 Eliquis - PO 2.5 mg BID OBED Administration Aspirin 81 mg 05/12/16 10:00 05/12/16 10:14 Asa - PO 81 mg DAILY OBED Administration Piperacillin Sod/Tazobactam Sod 50 mls @ 100 mls/hr 05/12/16 15:45 Zosyn 2.25gm Ivpb (Pre-Docked) IVPB Q8H-IV OBED Lorazepam 0.5 mg 05/11/16 20:22 05/11/16 22:52 Ativan - PO 0.5 mg Q8H PRN Administration ANXIETY Losartan Potassium 25 mg 05/12/16 10:00 05/12/16 10:15 Cozaar - PO 25 mg DAILY OBED Administration Metoprolol Succinate 50 mg 05/12/16 10:00 05/12/16 10:15 Toprol Xl - PO 50 mg DAILY OBED Administration Metoprolol Tartrate 2.5 mg 05/11/16 22:54 Lopressor Injection - IVPUSH Q4H PRN HR >/= 130 Oxycodone HCl 5 mg 05/11/16 20:30 Roxicodone - PO Q6H PRN Pantoprazole Sodium 40 mg 05/12/16 10:00 05/12/16 10:15 Protonix - PO 40 mg DAILY OBED Administration Rosuvastatin Calcium 5 mg 05/11/16 22:00 05/11/16 22:52 Crestor - PO 5 mg HS OBED Administration Sevelamer Carbonate 800 mg 05/12/16 08:00 05/12/16 12:04 Renvela - PO 800 mg TIDCM OBED Administration Impression 1. ESRD 2. PNA 3. HTN 4. CHF 5. pleural effusion 6. hypothyroidism 7. hyperlipidemia 8. MVP 9. a-fib Plan - HD in am - cardio input appreciated, beta kyrie dose being adjusted - will order bloodwork for tomorrow - epogen for anemia - monitor pulse ox and cont oxygen - cont abx - keep on tele - 3 hrs, 1000 heparin, 500 maintenance, permacath, hectorol 2 mcg, aranesp 35 weekly, [address] Zuluaga
[2016-05-12] MEDS: PIPERACILLIN/TAZOB 2.25 GM 50 ML IVPB SCH ×2 (17:37→17:38)
[2016-05-12] MEDS: ALBUTEROL SO4 2.5/IPRATROPIUM 0.5 INH SOL 3 ML VIAL.NEB. NEB PRN ×2 (17:55→23:19)
--- NOTE | 2016-05-12 20:52 | PN ---
Progress Note, Physician - Current Medication List Current Medications: Active Medications Albuterol/Ipratropium (Duoneb -) 1 amp NEB Q4H PRN PRN Reason: SHORTNESS OF BREATH Last Admin: 05/12/16 17:55 Dose: 1 amp Apixaban (Eliquis -) 2.5 mg PO BID [facility] Last Admin: 05/12/16 10:15 Dose: 2.5 mg Aspirin (Asa -) 81 mg PO DAILY [facility] Last Admin: 05/12/16 10:14 Dose: 81 mg Epoetin Jose (Epogen -) 4,000 units IVPUSH ONCE ONE Stop: 05/13/16 16:48 Heparin Sodium (Porcine) (Heparin -) 1,000 unit IVPUSH ONCE ONE Stop: 05/13/16 16:48 Piperacillin Sod/Tazobactam Sod (Zosyn 2.25gm Ivpb (Pre-Docked)) 50 mls @ 100 mls/hr IVPB Q8H-IV OBED Last Admin: 05/12/16 17:38 Dose: Not Given Lorazepam (Ativan -) 0.5 mg PO Q8H PRN PRN Reason: ANXIETY Last Admin: 05/11/16 22:52 Dose: 0.5 mg Losartan Potassium (Cozaar -) 25 mg PO DAILY [facility] Last Admin: 05/12/16 10:15 Dose: 25 mg Metoprolol Succinate (Toprol Xl -) 50 mg PO DAILY [facility] Last Admin: 05/12/16 10:15 Dose: 50 mg Metoprolol Tartrate (Lopressor Injection -) 2.5 mg IVPUSH Q4H PRN PRN Reason: HR >/= 130 Oxycodone HCl (Roxicodone -) 5 mg PO Q6H PRN Pantoprazole Sodium (Protonix -) 40 mg PO DAILY [facility] Last Admin: 05/12/16 10:15 Dose: 40 mg Paricalcitol (Zemplar -) 2 mcg IVPUSH ONCE ONE Stop: 05/13/16 16:48 Rosuvastatin Calcium (Crestor -) 5 mg PO HS [facility] Last Admin: 05/11/16 22:52 Dose: 5 mg Sevelamer Carbonate (Renvela -) 800 mg PO TIDCM [facility] Last Admin: 05/12/16 17:45 Dose: 800 mg - Objective Vital Signs: Vital Signs Temperature 98.8 F 05/12/16 20:17 Pulse Rate 98 H 05/12/16 20:17 Respiratory Rate 20 05/12/16 20:17 Blood Pressure 115/64 05/12/16 20:17 O2 Sat by Pulse Oximetry (%) 97 05/12/16 20:17 Constitutional: Yes: No Distress HENT: Yes: Atraumatic Neck: Yes: Supple Cardiovascular: Yes: Regular Rate and Rhythm Respiratory: Yes: CTA Bilaterally Gastrointestinal: Yes: Normal Bowel Sounds Extremities: Yes: WNL Neurological: Yes: Alert, Oriented Labs: INR, PTT INR 1.44 (0.82-1.09) H 05/11/16 09:02 Problem List - Problems (1) ESRD needing dialysis Code(s): N18.6 - END STAGE RENAL DISEASE (2) COPD (chronic obstructive pulmonary disease) Code(s): J44.9 - CHRONIC OBSTRUCTIVE PULMONARY DISEASE, UNSPECIFIED Qualifiers : COPD type: unspecified COPD Qualified Code(s): J44.9 - Chronic obstructive pulmonary disease, unspecified (3) A-fib Qualifiers: Atrial fibrillation type: unspecified Qualified Code(s): I48.91 - Unspecified atrial fibrillation (4) Atrial fibrillation with tachycardic ventricular rate Code(s): I48.91 - UNSPECIFIED ATRIAL FIBRILLATION (5) Defibrillator discharge Code(s): Z45.02 - ENCNTR FOR ADJUST AND MGMT OF AUTOMATIC IMPLNTBL CARD DEFIB (6) Pneumonia Code(s): J18.9 - PNEUMONIA, UNSPECIFIED ORGANISM Qualifiers: Pneumonia type: due to unspecified organism Laterality: unspecified laterality Lung location: unspecified part of lung Qualified Code(s): J18.9 - Pneumonia, unspecified organism (7) Acute on chronic systolic and diastolic heart failure, NYHA class 3 Code(s): I50.43 - ACUTE ON CHRONIC COMBINED SYSTOLIC AND DIASTOLIC HRT FAIL Assessment/Plan A/P 1. ESRD ON HD NEPRO CONSULT 2. PNA IV ABX ID CONSULT 3. HTN STABLE ON MEDS 4. CHF 5. pleural effusion 6. hypothyroidism 7. hyperlipidemia 8. MVP 9. a-fib CARDIO CONSULT CONTINUE HOME MEDS
[2016-05-12] MEDS: guaiFENesin 200 MG/10 ML 10 ML UNIT-DOSE CUPS PO PRN (21:28)
[2016-05-12] MEDS: ROSUVASTATIN CA 5 MG TABLET (FP) PO SCH (21:28)
[2016-05-12] MEDS: LORazepam 0.5 MG TABLET PO PRN (23:55)
[2016-05-13] MEDS: PIPERACILLIN/TAZOB 2.25 GM 50 ML IVPB SCH ×3 (02:45→18:11)
[2016-05-13] MEDS: ALBUTEROL SO4 2.5/IPRATROPIUM 0.5 INH SOL 3 ML VIAL.NEB. NEB PRN ×4 (06:00→22:01)
[2016-05-13] MEDS: guaiFENesin 200 MG/10 ML 10 ML UNIT-DOSE CUPS PO PRN ×3 (06:42→18:13)
[2016-05-13] MEDS: SEVELAMER CARBONATE 800 MG TAB (FP) PO SCH ×3 (08:41→18:11)
[2016-05-13] MEDS: LORazepam 0.5 MG TABLET PO PRN ×2 (09:41→22:02)
[2016-05-13] MEDS ORDERED: PARICALCITOL 5 MCG/ML VIAL IVPUSH ONE (10:30)
[2016-05-13 10:44] LABS: MCHC 32.4 g/dl (32.0-36.0); MEAN PLT VOLUME 8.7 fl (7.5-11.1); PLATELET COUNT 274 K/MM3 (134-434); RDW 15.6 % (11.6-15.6); WHITE BLOOD COUNT 9.4 K/mm3 (4.0-10.0)
[2016-05-13] MEDS ORDERED: EPOETIN ALFA 2,000 UNITS/1 ML VIAL IVPUSH ONE (11:00)
[2016-05-13 11:13] LABS: CALCIUM 8.4 mg/dL (8.5-10.1)
--- NOTE | 2016-05-13 11:14 | PN ---
Progress Note, Physician History of Present Illness: Pt seen and examined. She is currently getting HD. She still complains of shortness of breath. - Current Medication List Current Medications: Active Medications Albuterol/Ipratropium (Duoneb -) 1 amp NEB Q4H PRN PRN Reason: SHORTNESS OF BREATH Last Admin: 05/13/16 09:41 Dose: 1 amp Apixaban (Eliquis -) 2.5 mg PO BID [facility] Last Admin: 05/12/16 21:28 Dose: 2.5 mg Aspirin (Asa -) 81 mg PO DAILY [facility] Last Admin: 05/12/16 10:14 Dose: 81 mg Guaifenesin (Robitussin -) 10 ml PO Q6H PRN PRN Reason: COUGH Last Admin: 05/13/16 06:42 Dose: 10 ml Heparin Sodium (Porcine) (Heparin -) 1,000 unit IVPUSH ONCE ONE Stop: 05/13/16 16:48 Piperacillin Sod/Tazobactam Sod (Zosyn 2.25gm Ivpb (Pre-Docked)) 50 mls @ 100 mls/hr IVPB Q8H-IV [facility] Last Admin: 05/13/16 10:38 Dose: 100 mls/hr Lorazepam (Ativan -) 0.5 mg PO Q8H PRN PRN Reason: ANXIETY Last Admin: 05/13/16 09:41 Dose: 0.5 mg Losartan Potassium (Cozaar -) 25 mg PO DAILY [facility] Last Admin: 05/12/16 10:15 Dose: 25 mg Metoprolol Succinate (Toprol Xl -) 50 mg PO DAILY [facility] Last Admin: 05/12/16 10:15 Dose: 50 mg Metoprolol Tartrate (Lopressor Injection -) 2.5 mg IVPUSH Q4H PRN PRN Reason: HR >/= 130 Oxycodone HCl (Roxicodone -) 5 mg PO Q6H PRN Pantoprazole Sodium (Protonix -) 40 mg PO DAILY [facility] Last Admin: 05/12/16 10:15 Dose: 40 mg Rosuvastatin Calcium (Crestor -) 5 mg PO HS [facility] Last Admin: 05/12/16 21:28 Dose: 5 mg Sevelamer Carbonate (Renvela -) 800 mg PO TIDCM [facility] Last Admin: 05/13/16 08:41 Dose: 800 mg - Objective Vital Signs: Vital Signs Temperature 98.2 F 05/13/16 09:45 Pulse Rate 97 H 05/13/16 10:20 Respiratory Rate 18 05/13/16 10:20 Blood Pressure 122/37 05/13/16 10:20 O2 Sat by Pulse Oximetry (%) 95 05/13/16 09:40 Constitutional: Yes: Calm Eyes: Yes: Conjunctiva Clear HENT: Yes: Atraumatic Cardiovascular: Yes: S1, S2 Respiratory: Yes: On Nasal O2, Wheezes Gastrointestinal: Yes: Soft Genitourinary: Yes: WNL Musculoskeletal: Yes: WNL Edema: No Neurological: Yes: Oriented Psychiatric: Yes: Oriented Labs: CBC, BMP 05/13/16 09:50 INR, PTT INR 1.44 (0.82-1.09) H 05/11/16 09:02 Problem List - Problems (1) Defibrillator discharge Code(s): Z45.02 - ENCNTR FOR ADJUST AND MGMT OF AUTOMATIC IMPLNTBL CARD DEFIB (2) ESRD needing dialysis Code(s): N18.6 - END STAGE RENAL DISEASE (3) Panic anxiety syndrome Code(s): F41.0 - PANIC DISORDER WITHOUT AGORAPHOBIA (4) Pneumonia Code(s): J18.9 - PNEUMONIA, UNSPECIFIED ORGANISM Qualifiers: Pneumonia type: due to unspecified organism Laterality: unspecified laterality Lung location: unspecified part of lung Qualified Code(s): J18.9 - Pneumonia, unspecified organism (5) COPD (chronic obstructive pulmonary disease) Code(s): J44.9 - CHRONIC OBSTRUCTIVE PULMONARY DISEASE, UNSPECIFIED Qualifiers : COPD type: unspecified COPD Qualified Code(s): J44.9 - Chronic obstructive pulmonary disease, unspecified (6) A-fib Qualifiers: Atrial fibrillation type: unspecified Qualified Code(s): I48.91 - Unspecified atrial fibrillation (7) CHF (congestive heart failure) Code(s): I50.9 - HEART FAILURE, UNSPECIFIED Qualifiers: Congestive heart failure type: unspecified congestive heart failure type Congestive heart failure chronicity: unspecified congestive heart failure chronicity Qualified Code(s): I50.9 - Heart failure, unspecified (8) Cough Code(s): R05 - COUGH Assessment/Plan Current Medications Generic Name Dose Route Start Last Admin Trade Name Freq PRN Reason Stop Dose Admin Albuterol/Ipratropium 1 amp 05/12/16 15:02 05/13/16 09:41 Duoneb - NEB 1 amp Q4H PRN Administration SHORTNESS OF BREATH Apixaban 2.5 mg 05/11/16 22:00 05/12/16 21:28 Eliquis - PO 2.5 mg BID [facility] Administration Aspirin 81 mg 05/12/16 10:00 05/12/16 10:14 Asa - PO 81 mg DAILY [facility] Administration Guaifenesin 10 ml 05/12/16 20:53 05/13/16 06:42 Robitussin - PO 10 ml Q6H PRN Administration COUGH Heparin Sodium (Porcine) 1,000 unit 05/13/16 16:47 Heparin - IVPUSH 05/13/16 16:48 ONCE ONE Piperacillin Sod/Tazobactam Sod 50 mls @ 100 mls/hr 05/12/16 15:45 05/13/16 10: 38 Zosyn 2.25gm Ivpb (Pre-Docked) IVPB 100 mls/hr Q8H-IV [facility] Administration Lorazepam 0.5 mg 05/11/16 20:22 05/13/16 09:41 Ativan - PO 0.5 mg Q8H PRN Administration ANXIETY Losartan Potassium 25 mg 05/12/16 10:00 05/12/16 10:15 Cozaar - PO 25 mg DAILY [facility] Administration Metoprolol Succinate 50 mg 05/12/16 10:00 05/12/16 10:15 Toprol Xl - PO 50 mg DAILY [facility] Administration Metoprolol Tartrate 2.5 mg 05/11/16 22:54 Lopressor Injection - IVPUSH Q4H PRN HR >/= 130 Oxycodone HCl 5 mg 05/11/16 20:30 Roxicodone - PO Q6H PRN Pantoprazole Sodium 40 mg 05/12/16 10:00 05/12/16 10:15 Protonix - PO 40 mg DAILY [facility] Administration Rosuvastatin Calcium 5 mg 05/11/16 22:00 05/12/16 21:28 Crestor - PO 5 mg HS [facility] Administration Sevelamer Carbonate 800 mg 05/12/16 08:00 05/13/16 08:41 Renvela - PO 800 mg TIDCM [facility] Administration Impression 1. ESRD 2. PNA 3. HTN 4. CHF 5. pleural effusion 6. hypothyroidism 7. hyperlipidemia 8. MVP 9. a-fib Plan - pt is tolerating HD - will order incentive spirometer - cardiology follow up - epogen for anemia - monitor blood pressure - monitor pulse ox and cont oxygen - cont abx - keep on tele - 3 hrs, 1000 heparin, 500 maintenance, permacath, hectorol 2 mcg, aranesp 35 weekly, [address] Zuluaga
--- NOTE | 2016-05-13 11:59 | PN ---
Progress Note, Physician History of Present Illness: The patient is an 80 year old female, with a significant past medical history of anemia, Afib s/p defibrillator on eliquis, COPD (on home O2 as needed), CHF, HTN, hyperlipidemia, hypothyroidism, ESRD (on dialysis MWF, recent revision on her fistula) and overactive bladder, who presents to the emergency department with shortness of breath since approximately 9PM last night shortly after her defibrillator went off. The patient additionally reports intermittent palpitations and a productive cough. The patient states that she has been coughing up phlegm w/o hemopytsis. The patient reports that she needs to have dialysis today as her most recent dialysis was last Wednesday (05/08/2016). Pt does note that she feels more sob when laying flat, deines any leg swelling. The patient denies any chest pain prior to coming to the ED, but endorsed some CP after initial evaluation. The patient denies fever, chills, nausea, vomiting, diarrhea or melena/bpr. PMH ASHD drug eluting stent placement in proximal RCA on June 04, 2009. [address] Bradford VALE of mid RCA September 13, 2014 Dr. Etienne ESRD on HD 2015 HTN Hyperlipidemia LBBB Moderate AR NSTEMI August 2014 [employer] right JOSE and EIA September 03, 2014 Dr. Etienne s/p sudden cardiac [place] 2016 Severely reduced systolic function Subcutaneus AICD Giraffic 2016 SVT rx with cardizem June 2015 [facility] - Current Medication List Current Medications: Active Medications Albuterol/Ipratropium (Duoneb -) 1 amp NEB Q4H PRN PRN Reason: SHORTNESS OF BREATH Last Admin: 05/13/16 09:41 Dose: 1 amp Apixaban (Eliquis -) 2.5 mg PO BID [facility] Last Admin: 05/12/16 21:28 Dose: 2.5 mg Aspirin (Asa -) 81 mg PO DAILY [facility] Last Admin: 05/12/16 10:14 Dose: 81 mg Guaifenesin (Robitussin -) 10 ml PO Q4H PRN Heparin Sodium (Porcine) (Heparin -) 1,000 unit IVPUSH ONCE ONE Stop: 05/13/16 16:48 Piperacillin Sod/Tazobactam Sod (Zosyn 2.25gm Ivpb (Pre-Docked)) 50 mls @ 100 mls/hr IVPB Q8H-IV [facility] Last Admin: 05/13/16 10:38 Dose: 100 mls/hr Lorazepam (Ativan -) 0.5 mg PO Q8H PRN PRN Reason: ANXIETY Last Admin: 05/13/16 09:41 Dose: 0.5 mg Losartan Potassium (Cozaar -) 25 mg PO DAILY [facility] Last Admin: 05/12/16 10:15 Dose: 25 mg Metoprolol Succinate (Toprol Xl -) 50 mg PO DAILY [facility] Last Admin: 05/12/16 10:15 Dose: 50 mg Metoprolol Tartrate (Lopressor Injection -) 2.5 mg IVPUSH Q4H PRN PRN Reason: HR >/= 130 Oxycodone HCl (Roxicodone -) 5 mg PO Q6H PRN Pantoprazole Sodium (Protonix -) 40 mg PO DAILY [facility] Last Admin: 05/12/16 10:15 Dose: 40 mg Rosuvastatin Calcium (Crestor -) 5 mg PO HS [facility] Last Admin: 05/12/16 21:28 Dose: 5 mg Sevelamer Carbonate (Renvela -) 800 mg PO TIDCM [facility] Last Admin: 05/13/16 08:41 Dose: 800 mg - Objective Vital Signs: Vital Signs Temperature 98.2 F 05/13/16 09:45 Pulse Rate 78 05/13/16 10:50 Respiratory Rate 18 05/13/16 10:50 Blood Pressure 128/40 05/13/16 10:50 O2 Sat by Pulse Oximetry (%) 95 05/13/16 09:40 Eyes: Yes: WNL, Conjunctiva Clear, EOM Intact HENT: Yes: WNL, Atraumatic, Normocephalic Neck: Yes: WNL, Supple, Trachea Midline Cardiovascular: Yes: Pulse Irregular, S1, S2 Respiratory: Yes: WNL, Regular, CTA Bilaterally Gastrointestinal: Yes: WNL, Normal Bowel Sounds Genitourinary: Yes: WNL Musculoskeletal: Yes: WNL Extremities: Yes: WNL Edema: No Integumentary: Yes: WNL Neurological: Yes: WNL, Alert, Oriented ...Motor Strength: WNL Psychiatric: Yes: WNL Labs: CBC, BMP 05/13/16 09:50 05/13/16 09:50 INR, PTT INR 1.44 (0.82-1.09) H 05/11/16 09:02 Problem List - Problems (1) A-fib Qualifiers: Atrial fibrillation type: unspecified Qualified Code(s): I48.91 - Unspecified atrial fibrillation (2) Acute on chronic systolic and diastolic heart failure, NYHA class 3 Code(s): I50.43 - ACUTE ON CHRONIC COMBINED SYSTOLIC AND DIASTOLIC HRT FAIL (3) Anxiety Code(s): F41.9 - ANXIETY DISORDER, UNSPECIFIED (4) Atrial fibrillation with tachycardic ventricular rate Code(s): I48.91 - UNSPECIFIED ATRIAL FIBRILLATION (5) Bleeding from dialysis shunt Code(s): T82.838A - HEMORRHAGE DUE TO VASCULAR PROSTH DEV/GRFT, INIT Qualifiers: Encounter type: initial encounter Qualified Code(s): T82.838A - Hemorrhage of vascular prosthetic devices, implants and grafts, initial encounter (6) CHF (congestive heart failure) Code(s): I50.9 - HEART FAILURE, UNSPECIFIED Qualifiers: Congestive heart failure type: unspecified congestive heart failure type Congestive heart failure chronicity: unspecified congestive heart failure chronicity Qualified Code(s): I50.9 - Heart failure, unspecified (7) Chest pain Code(s): R07.9 - CHEST PAIN, UNSPECIFIED Qualifiers: Chest pain type: unspecified Qualified Code(s): R07.9 - Chest pain, unspecified (9) Cough Code(s): R05 - COUGH (10) DVT prophylaxis Code(s): [id number] - (12) ESRD needing dialysis Code(s): N18.6 - END STAGE RENAL DISEASE (13) Fever Code(s): R50.9 - FEVER, UNSPECIFIED Qualifiers: Fever type: unspecified Qualified Code(s): R50.9 - Fever, unspecified (14) HTN (hypertension) Code(s): I10 - ESSENTIAL (PRIMARY) HYPERTENSION Qualifiers: Hypertension type: essential hypertension Qualified Code(s): I10 - Essential (primary) hypertension (15) Hyperlipidemia Code(s): E78.5 - HYPERLIPIDEMIA, UNSPECIFIED (16) Hypokalemia Code(s): E87.6 - HYPOKALEMIA (17) Palpitations Code(s): R00.2 - PALPITATIONS (18) Pneumonia Code(s): J18.9 - PNEUMONIA, UNSPECIFIED ORGANISM Qualifiers: Pneumonia type: due to unspecified organism Laterality: unspecified laterality Lung location: unspecified part of lung Qualified Code(s): J18.9 - Pneumonia, unspecified organism (19) Shortness of breath Code(s): R06.02 - SHORTNESS OF BREATH (20) Steal syndrome as complication of dialysis access Code(s): T82.898A - OTH COMPLICATION OF VASCULAR PROSTH DEV/GRFT, INIT Qualifiers: Encounter type: initial encounter Qualified Code(s): T82.898A - Other specified complication of vascular prosthetic devices, implants and grafts , initial encounter (21) [place]orsades [place] point[place] Code(s): I47.2 - VENTRICULAR TACHYCARDIA (22) Ventricular fibrillation Code(s): I49.01 - VENTRICULAR FIBRILLATION (23) Volume overload Code(s): E87.70 - FLUID OVERLOAD, UNSPECIFIED Qualifiers: Hypervolemia type: unspecified Qualified Code(s): E87.70 - Fluid overload, unspecified (24) Anemia Code(s): D64.9 - ANEMIA, UNSPECIFIED (25) Aortic dissection Code(s): I71.00 - DISSECTION OF UNSPECIFIED SITE OF AORTA (26) CAD (coronary artery disease) Code(s): I25.10 - ATHSCL HEART DISEASE OF [place] CORONARY ARTERY W/O ANG PCTRS Qualifiers: (27) COPD (chronic obstructive pulmonary disease) Code(s): J44.9 - CHRONIC OBSTRUCTIVE PULMONARY DISEASE, UNSPECIFIED Qualifiers : COPD type: unspecified COPD Qualified Code(s): J44.9 - Chronic obstructive pulmonary disease, unspecified (28) Cholelithiasis Code(s): K80.20 - CALCULUS OF GALLBLADDER W/O CHOLECYSTITIS W/O OBSTRUCTION (29) Chronic systolic (congestive) heart failure Code(s): I50.22 - CHRONIC SYSTOLIC (CONGESTIVE) HEART FAILURE (30) ESRD (end stage renal disease) Code(s): N18.6 - END STAGE RENAL DISEASE (31) Hypertriglyceridemia Code(s): E78.1 - PURE HYPERGLYCERIDEMIA (32) Status post coronary artery stent placement Code(s): Z95.5 - PRESENCE OF CORONARY ANGIOPLASTY IMPLANT AND GRAFT (33) Thyroid disorder Code(s): E07.9 - DISORDER OF THYROID, UNSPECIFIED Assessment/Plan (1) COPD (chronic obstructive pulmonary disease) Code(s): J44.9 - CHRONIC OBSTRUCTIVE PULMONARY DISEASE, UNSPECIFIED Qualifiers : COPD type: unspecified COPD Qualified Code(s): J44.9 - Chronic obstructive pulmonary disease, unspecified (2) A-fib Assessment/Plan: pt had periods of rapid AF last night-->boluses of IV metoprolol. Periods of MAT. Will increase metoprolol ER from 37.5 to 50 mg PO daily; f/u HR and BP. On apixaban for AC; on ASA (hx CAD). Qualifiers: Atrial fibrillation type: unspecified Qualified Code(s): I48.91 - Unspecified atrial fibrillation (3) Acute on chronic systolic and diastolic heart failure, NYHA class 3 Code(s): I50.43 - ACUTE ON CHRONIC COMBINED SYSTOLIC AND DIASTOLIC HRT FAIL (4) Bleeding from dialysis shunt Assessment/Plan: F/u with vascular surgeon. On apixaban and ASA. Code(s): T82.838A - HEMORRHAGE DUE TO VASCULAR PROSTH DEV/GRFT, INIT Qualifiers: Encounter type: initial encounter Qualified Code(s): T82.838A - Hemorrhage of vascular prosthetic devices, implants and grafts, initial encounter (5) Cough Assessment/Plan: leukocytosis; gives hx of "fever" at home and in ER (though not seen on ER notes ). 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 Code(s): R05 - COUGH (6) ESRD (end stage renal disease) on dialysis Assessment/Plan: Underwent HD 05/11/16; f/u electrolytes (eg, K+ was 5.9 prior to HD). (7) HTN (hypertension) Assessment/Plan: On losartan and metoprolol ER (the latter increased to 50 mg daily); f/u HR and BP. Code(s): I10 - ESSENTIAL (PRIMARY) HYPERTENSION Qualifiers: Hypertension type: essential hypertension Qualified Code(s): I10 - Essential (primary) hypertension (8) Hyperlipidemia Assessment/Plan: on statin; LDL cholesterol < 70mg/dL. Code(s): E78.5 - HYPERLIPIDEMIA, UNSPECIFIED (9) Palpitations Code(s): R00.2 - PALPITATIONS (10) Shortness of breath Code(s): R06.02 - SHORTNESS OF BREATH (11) Status post coronary artery stent placement Assessment/Plan: s/p coronary stents 09/18. On ASA and apixaban. Code(s): Z95.5 - PRESENCE OF CORONARY ANGIOPLASTY IMPLANT AND GRAFT (12) Panic anxiety syndrome Assessment/Plan: Pt is on lorazepam, which she usually takes prior to HD. She had two panic attacks while in ER yesterday. She is under a great deal of emotional stress at home (eg possible need to move to "a senior living" so as not to place burden of taking care of her on her ), and is depressed that all her time is taken up with HD and doctors' visits. She plans, as outpatient, to try to regain some independent time by having fewer office visits, if possible. She agrees to speak with a psychologist, but wants to do so as an outpatient. An SSRI may be of benefit. Code(s): F41.0 - PANIC DISORDER WITHOUT AGORAPHOBIA (13) Defibrillator discharge Assessment/Plan: ICD algorhythm adjusted. Metoprolol ER increased from 37.5 to 50 mg daily; F/u HR and BP. F/u electrolytes (K+ 5.9 prior to HD 05/11/16). Code(s): Z45.02 - ENCNTR FOR ADJUST AND MGMT OF AUTOMATIC IMPLNTBL CARD DEFIB
--- NOTE | 2016-05-13 12:49 | EKG ---
Test Reason : Blood Pressure : / mmHG Vent. Rate : 085 BPM Atrial Rate : 085 BPM P-R Int : 000 ms QRS Dur : 142 ms QT Int : 408 ms P-R-T Axes : 078 250 040 degrees QTc Int : 485 ms SINUS RHYTHM WITH PREMATURE ATRIAL COMPLEXES WITH ABERRANT CONDUCTION RIGHT SUPERIOR AXIS DEVIATION LEFT BUNDLE BRANCH BLOCK ABNORMAL ECG WHEN COMPARED WITH ECG OF 11-MAY-2016 09:32, PREVIOUS ECG HAS UNDETERMINED RHYTHM, NEEDS REVIEW Confirmed by MURIEL SANTOS MD ([id number]) on 05/13/2016 12:48:58 PM Referred By: Octavio CHAMBERS Confirmed By:MURIEL SANTOS MD
[2016-05-13] MEDS: LOSARTAN POTASSIUM 25 MG TABLET PO SCH (13:31)
[2016-05-13] MEDS: ASPIRIN 81 MG CHEWABLE TABLETS PO SCH (13:31)
[2016-05-13] MEDS: PANTOPRAZOLE 40 MG TABLET (FP) PO SCH (13:32)
[2016-05-13] MEDS: APIXABAN 2.5 MG TABLET PO SCH ×2 (13:32→22:02)
[2016-05-13] MEDS: METOPROLOL SUCCINATE 50 MG TAB.SR.24H (FP) PO SCH (13:32)
--- NOTE | 2016-05-13 16:28 | PN ---
Progress Note, Physician History of Present Illness: patient little better still sob says she is not feeling well - Current Medication List Current Medications: Active Medications Albuterol/Ipratropium (Duoneb -) 1 amp NEB Q4H PRN PRN Reason: SHORTNESS OF BREATH Last Admin: 05/13/16 09:41 Dose: 1 amp Apixaban (Eliquis -) 2.5 mg PO BID [facility] Last Admin: 05/13/16 13:32 Dose: 2.5 mg Aspirin (Asa -) 81 mg PO DAILY [facility] Last Admin: 05/13/16 13:31 Dose: 81 mg Guaifenesin (Robitussin -) 10 ml PO Q4H PRN Last Admin: 05/13/16 13:35 Dose: 10 ml Heparin Sodium (Porcine) (Heparin -) 1,000 unit IVPUSH ONCE ONE Stop: 05/13/16 16:48 Last Admin: 05/13/16 09:50 Dose: 1,000 unit Piperacillin Sod/Tazobactam Sod (Zosyn 2.25gm Ivpb (Pre-Docked)) 50 mls @ 100 mls/hr IVPB Q8H-IV [facility] Last Admin: 05/13/16 10:38 Dose: 100 mls/hr Lorazepam (Ativan -) 0.5 mg PO Q8H PRN PRN Reason: ANXIETY Last Admin: 05/13/16 09:41 Dose: 0.5 mg Losartan Potassium (Cozaar -) 25 mg PO DAILY [facility] Last Admin: 05/13/16 13:31 Dose: 25 mg Metoprolol Succinate (Toprol Xl -) 50 mg PO DAILY [facility] Last Admin: 05/13/16 13:32 Dose: 50 mg Metoprolol Tartrate (Lopressor Injection -) 2.5 mg IVPUSH Q4H PRN PRN Reason: HR >/= 130 Oxycodone HCl (Roxicodone -) 5 mg PO Q6H PRN Pantoprazole Sodium (Protonix -) 40 mg PO DAILY [facility] Last Admin: 05/13/16 13:32 Dose: 40 mg Rosuvastatin Calcium (Crestor -) 5 mg PO HS [facility] Last Admin: 05/12/16 21:28 Dose: 5 mg Sevelamer Carbonate (Renvela -) 800 mg PO TIDCM [facility] Last Admin: 05/13/16 13:32 Dose: 800 mg - Objective Vital Signs: Vital Signs Temperature 97.6 F 05/13/16 14:09 Pulse Rate 113 H 05/13/16 14:09 Respiratory Rate 20 05/13/16 14:09 Blood Pressure 98/64 05/13/16 14:09 O2 Sat by Pulse Oximetry (%) 95 05/13/16 09:40 Constitutional: Yes: Calm, Mild Distress Eyes: Yes: Conjunctiva Clear Cardiovascular: Yes: Regular Rate and Rhythm Respiratory: Yes: Regular, On Nasal O2, Rales, Rhonchi Gastrointestinal: Yes: Normal Bowel Sounds, Soft Musculoskeletal: Yes: WNL Extremities: Yes: WNL Neurological: Yes: Alert, Oriented Psychiatric: Yes: Alert Labs: CBC, BMP 05/13/16 09:50 05/13/16 09:50 INR, PTT INR 1.44 (0.82-1.09) H 05/11/16 09:02 Assessment/Plan patient evaluated and findings noted,patient is an immunocompromised patient patient is showing infiltrate in the lung which i think is pneumonia as she also ahs greenish sputum production Problem List - Problems (1) COPD (chronic obstructive pulmonary disease) Code(s): J44.9 - CHRONIC OBSTRUCTIVE PULMONARY DISEASE, UNSPECIFIED Qualifiers : COPD type: unspecified COPD Qualified Code(s): J44.9 - Chronic obstructive pulmonary disease, unspecified (2) A-fib Qualifiers: Atrial fibrillation type: unspecified Qualified Code(s): I48.91 - Unspecified atrial fibrillation (3) Acute on chronic systolic and diastolic heart failure, NYHA class 3 Code(s): I50.43 - ACUTE ON CHRONIC COMBINED SYSTOLIC AND DIASTOLIC HRT FAIL (4) Bleeding from dialysis shunt Code(s): T82.838A - HEMORRHAGE DUE TO VASCULAR PROSTH DEV/GRFT, INIT Qualifiers: Encounter type: initial encounter Qualified Code(s): T82.838A - Hemorrhage of vascular prosthetic devices, implants and grafts, initial encounter (5) Cough Code(s): R05 - COUGH (8) HTN (hypertension) Code(s): I10 - ESSENTIAL (PRIMARY) HYPERTENSION Qualifiers: Hypertension type: essential hypertension Qualified Code(s): I10 - Essential (primary) hypertension (9) Hyperlipidemia Code(s): E78.5 - HYPERLIPIDEMIA, UNSPECIFIED (10) Palpitations Code(s): R00.2 - PALPITATIONS (11) Paroxysmal atrial fibrillation Code(s): I48.0 - PAROXYSMAL ATRIAL FIBRILLATION (12) Shortness of breath Code(s): R06.02 - SHORTNESS OF BREATH (13) Anxiety and depression Code(s): F41.9 - ANXIETY DISORDER, UNSPECIFIED F32.9 - MAJOR DEPRESSIVE DISORDER, SINGLE EPISODE, UNSPECIFIED (14) Status post coronary artery stent placement Code(s): Z95.5 - PRESENCE OF CORONARY ANGIOPLASTY IMPLANT AND GRAFT (15) Panic anxiety syndrome Code(s): F41.0 - PANIC DISORDER WITHOUT AGORAPHOBIA pneumonia plan continue abx incentive adeline
[2016-05-13] MEDS ORDERED: HEPARIN NA (PORCINE) 5,000 UNITS/ML 1ML VIAL IVPUSH ONE (16:47)
[2016-05-13] MEDS ORDERED: HEPARIN NA (PORCINE) 5,000 UNITS/ML 1ML VIAL IVPUSH SCH (17:00)
--- NOTE | 2016-05-13 19:39 | PN ---
Progress Note, Physician - Current Medication List Current Medications: Active Medications Albuterol/Ipratropium (Duoneb -) 1 amp NEB Q4H PRN PRN Reason: SHORTNESS OF BREATH Last Admin: 05/13/16 18:26 Dose: 1 amp Apixaban (Eliquis -) 2.5 mg PO BID [facility] Last Admin: 05/13/16 13:32 Dose: 2.5 mg Aspirin (Asa -) 81 mg PO DAILY [facility] Last Admin: 05/13/16 13:31 Dose: 81 mg Guaifenesin (Robitussin -) 10 ml PO Q4H PRN Last Admin: 05/13/16 18:13 Dose: 10 ml Piperacillin Sod/Tazobactam Sod (Zosyn 2.25gm Ivpb (Pre-Docked)) 50 mls @ 100 mls/hr IVPB Q8H-IV [facility] Last Admin: 05/13/16 18:11 Dose: 100 mls/hr Lorazepam (Ativan -) 0.5 mg PO Q8H PRN PRN Reason: ANXIETY Last Admin: 05/13/16 09:41 Dose: 0.5 mg Losartan Potassium (Cozaar -) 25 mg PO DAILY [facility] Last Admin: 05/13/16 13:31 Dose: 25 mg Metoprolol Succinate (Toprol Xl -) 50 mg PO DAILY [facility] Last Admin: 05/13/16 13:32 Dose: 50 mg Metoprolol Tartrate (Lopressor Injection -) 2.5 mg IVPUSH Q4H PRN PRN Reason: HR >/= 130 Oxycodone HCl (Roxicodone -) 5 mg PO Q6H PRN Pantoprazole Sodium (Protonix -) 40 mg PO DAILY [facility] Last Admin: 05/13/16 13:32 Dose: 40 mg Rosuvastatin Calcium (Crestor -) 5 mg PO HS [facility] Last Admin: 05/12/16 21:28 Dose: 5 mg Sevelamer Carbonate (Renvela -) 800 mg PO TIDCM [facility] Last Admin: 05/13/16 18:11 Dose: 800 mg - Objective Vital Signs: Vital Signs Temperature 98.4 F 05/13/16 18:00 Pulse Rate 108 H 05/13/16 18:00 Respiratory Rate 20 05/13/16 18:00 Blood Pressure 116/60 05/13/16 18:00 O2 Sat by Pulse Oximetry (%) 95 05/13/16 09:40 HENT: Yes: Atraumatic Neck: Yes: Supple Cardiovascular: Yes: Regular Rate and Rhythm Respiratory: Yes: CTA Bilaterally Gastrointestinal: Yes: Normal Bowel Sounds Extremities: Yes: WNL Labs: CBC, BMP 05/13/16 09:50 05/13/16 09:50 INR, PTT INR 1.44 (0.82-1.09) H 05/11/16 09:02 Problem List - Problems (1) ESRD needing dialysis Code(s): N18.6 - END STAGE RENAL DISEASE (2) COPD (chronic obstructive pulmonary disease) Code(s): J44.9 - CHRONIC OBSTRUCTIVE PULMONARY DISEASE, UNSPECIFIED Qualifiers : COPD type: unspecified COPD Qualified Code(s): J44.9 - Chronic obstructive pulmonary disease, unspecified (3) A-fib Qualifiers: Atrial fibrillation type: unspecified Qualified Code(s): I48.91 - Unspecified atrial fibrillation (4) Atrial fibrillation with tachycardic ventricular rate Code(s): I48.91 - UNSPECIFIED ATRIAL FIBRILLATION (5) Defibrillator discharge Code(s): Z45.02 - ENCNTR FOR ADJUST AND MGMT OF AUTOMATIC IMPLNTBL CARD DEFIB (6) Pneumonia Code(s): J18.9 - PNEUMONIA, UNSPECIFIED ORGANISM Qualifiers: Pneumonia type: due to unspecified organism Laterality: unspecified laterality Lung location: unspecified part of lung Qualified Code(s): J18.9 - Pneumonia, unspecified organism (7) Acute on chronic systolic and diastolic heart failure, NYHA class 3 Code(s): I50.43 - ACUTE ON CHRONIC COMBINED SYSTOLIC AND DIASTOLIC HRT FAIL Assessment/Plan A/P 1. ESRD ON HD NEPRO CONSULT 2. PNA IV ABX ID CONSULT 3. HTN STABLE ON MEDS 4. CHF 5. pleural effusion 6. hypothyroidism 7. hyperlipidemia 8. MVP 9. a-fib CARDIO CONSULT CONTINUE HOME MEDS
[2016-05-13] MEDS: METOPROLOL TARTRATE 5 MG/5 ML VIAL IVPUSH PRN (19:43)
[2016-05-13] MEDS ORDERED: METOPROLOL SUCCINATE 25 MG TAB.SR.24H (FP) PO ONE (20:00)
[2016-05-13] MEDS: ROSUVASTATIN CA 5 MG TABLET (FP) PO SCH (22:02)
[2016-05-13] MEDS: guaiFENesin/CODEINE 5 ML UNIT-DOSE CUPS PO PRN (22:03)
[2016-05-14] MEDS: METOPROLOL TARTRATE 5 MG/5 ML VIAL IVPUSH PRN (01:02)
[2016-05-14] MEDS: PIPERACILLIN/TAZOB 2.25 GM 50 ML IVPB SCH ×3 (01:08→17:02)
[2016-05-14] MEDS: guaiFENesin/CODEINE 5 ML UNIT-DOSE CUPS PO PRN ×3 (06:03→16:52)
[2016-05-14] MEDS: ALBUTEROL SO4 2.5/IPRATROPIUM 0.5 INH SOL 3 ML VIAL.NEB. NEB PRN ×3 (06:04→20:30)
[2016-05-14] MEDS: SEVELAMER CARBONATE 800 MG TAB (FP) PO SCH ×3 (08:46→16:48)
[2016-05-14] MEDS: ASPIRIN 81 MG CHEWABLE TABLETS PO SCH (09:24)
[2016-05-14] MEDS: LOSARTAN POTASSIUM 25 MG TABLET PO SCH (09:24)
[2016-05-14] MEDS: PANTOPRAZOLE 40 MG TABLET (FP) PO SCH (09:25)
[2016-05-14] MEDS: METOPROLOL SUCCINATE 50 MG TAB.SR.24H (FP) PO SCH (09:25)
[2016-05-14] MEDS: APIXABAN 2.5 MG TABLET PO SCH ×2 (09:25→21:34)
[2016-05-14] MEDS: LORazepam 0.5 MG TABLET PO PRN (09:29)
--- NOTE | 2016-05-14 12:59 | PN ---
Progress Note, Physician Chief Complaint: Pt anxious; +productive cough that tires her out, History of Present Illness: The patient is an 80 year old white female, with a significant past medical history of anemia, Afib s/p ICD 09/2015 ; on Eliquis, COPD (on home O2 as needed ), systolic (borderline reduced LVEF)/diastolic CHF, HTN, hyperlipidemia, hypothyroidism, ESRD (on dialysis MWF, recent revision on her fistula); anxiety/ depression/panic, and overactive bladder, who presents to the emergency department with shortness of breath since approximately 9PM last night shortly after her defibrillator went off. The patient additionally reports intermittent palpitations and a productive cough that began last weekend. The patient states that she has been coughing up phlegm w/o hemopytsis. The patient reports that she needs to have dialysis today as her most recent dialysis was last Wednesday (05/08/2016). The patient does note that she feels more sob when laying flat, denies any leg swelling. The patient denies any chest pain prior to coming to the ED, but endorsed some CP after initial evaluation. The patient denies fever, chills , nausea, vomiting, diarrhea or melena/bpr. Allergies: None reported. Past Surgical History: Stents x 3, Defibrillator (09/27/2015). Social History: Former smoker (quit 08/2014). Denies alcohol or drug use. PCP: Dr. Swanson Electronic Organ Mechanic: Dr. [employer] Safety Program Coordinator: Dr. Lopez - Current Medication List Current Medications: Active Medications Albuterol/Ipratropium (Duoneb -) 1 amp NEB Q4H PRN PRN Reason: SHORTNESS OF BREATH Last Admin: 05/14/16 06:04 Dose: 1 amp Apixaban (Eliquis -) 2.5 mg PO BID [facility] Last Admin: 05/14/16 09:25 Dose: 2.5 mg Aspirin (Asa -) 81 mg PO DAILY [facility] Last Admin: 05/14/16 09:24 Dose: 81 mg Guaifenesin/Codeine Phosphate (Robitussin Ac -) 10 ml PO Q8H PRN PRN Reason: COUGH Last Admin: 05/14/16 06:03 Dose: 10 ml Piperacillin Sod/Tazobactam Sod (Zosyn 2.25gm Ivpb (Pre-Docked)) 50 mls @ 100 mls/hr IVPB Q8H-IV [facility]ED Last Admin: 05/14/16 09:25 Dose: 100 mls/hr Lorazepam (Ativan -) 0.5 mg PO Q8H PRN PRN Reason: ANXIETY Last Admin: 05/14/16 09:29 Dose: 0.5 mg Losartan Potassium (Cozaar -) 25 mg PO DAILY [facility] Last Admin: 05/14/16 09:24 Dose: 25 mg Metoprolol Succinate (Toprol Xl -) 50 mg PO DAILY [facility] Last Admin: 05/14/16 09:25 Dose: 50 mg Metoprolol Tartrate (Lopressor Injection -) 2.5 mg IVPUSH Q4H PRN PRN Reason: HR >/= 130 Last Admin: 05/14/16 01:02 Dose: 2.5 mg Oxycodone HCl (Roxicodone -) 5 mg PO Q6H PRN Last Admin: 05/14/16 03:20 Dose: 5 mg Pantoprazole Sodium (Protonix -) 40 mg PO DAILY [facility] Last Admin: 05/14/16 09:25 Dose: 40 mg Rosuvastatin Calcium (Crestor -) 5 mg PO HS [facility] Last Admin: 05/13/16 22:02 Dose: 5 mg Sevelamer Carbonate (Renvela -) 800 mg PO TIDCM [facility] Last Admin: 05/14/16 08:46 Dose: 800 mg - Objective Vital Signs: Vital Signs Temperature 97.3 F L 05/14/16 10:00 Pulse Rate 93 H 05/14/16 10:00 Respiratory Rate 20 05/14/16 10:00 Blood Pressure 118/40 05/14/16 10:00 O2 Sat by Pulse Oximetry (%) 96 05/14/16 09:00 Constitutional: Yes: Anxious Eyes: Yes: WNL HENT: Yes: WNL Neck: Yes: WNL Cardiovascular: Yes: Pulse Irregular Respiratory: Yes: Diminished Gastrointestinal: Yes: Soft ...Rectal Exam: Yes: Deferred Genitourinary: No: Anuria Musculoskeletal: Yes: Muscle Weakness Extremities: Yes: Cool Edema: No Peripheral Pulses WNL: No Peripheral Pulses: Left Doralis Pedis: 1+, Right Dorsalis Pedis: 1+ Integumentary: Yes: Bruising Neurological: Yes: Alert, Oriented, Weakness Psychiatric: Yes: Alert, Oriented, Other (anxiety/depression) Labs: CBC, BMP 05/13/16 09:50 05/13/16 09:50 INR, PTT INR 1.44 (0.82-1.09) H 05/11/16 09:02 - ....Imaging Other: Image Reviewed (telemetry: NSR; periods of AF, MAT) Problem List - Problems (1) COPD (chronic obstructive pulmonary disease) Code(s): J44.9 - CHRONIC OBSTRUCTIVE PULMONARY DISEASE, UNSPECIFIED Qualifiers : COPD type: unspecified COPD Qualified Code(s): J44.9 - Chronic obstructive pulmonary disease, unspecified (2) A-fib Assessment/Plan: pt had periods of rapid AF last night-->boluses of IV metoprolol. Periods of MAT. Will increase metoprolol ER from 37.5 to 50 mg PO daily; f/u HR and BP. On apixaban for AC; on ASA (hx CAD). Qualifiers: Atrial fibrillation type: unspecified Qualified Code(s): I48.91 - Unspecified atrial fibrillation (3) Acute on chronic systolic and diastolic heart failure, NYHA class 3 Code(s): I50.43 - ACUTE ON CHRONIC COMBINED SYSTOLIC AND DIASTOLIC HRT FAIL (4) Bleeding from dialysis shunt Assessment/Plan: F/u with vascular surgeon. On apixaban and ASA. Code(s): T82.838A - HEMORRHAGE DUE TO VASCULAR PROSTH DEV/GRFT, INIT Qualifiers: Encounter type: initial encounter Qualified Code(s): T82.838A - Hemorrhage of vascular prosthetic devices, implants and grafts, initial encounter (5) Cough Assessment/Plan: leukocytosis; gives hx of "fever" at home and in ER (though not seen on ER notes ). 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 Code(s): R05 - COUGH (6) ESRD (end stage renal disease) on dialysis Assessment/Plan: Undergoing HD today; f/u electrolytes, volume status. (7) HTN (hypertension) Assessment/Plan: On losartan and metoprolol ER (the latter increased to 50 mg daily); f/u HR and BP. Code(s): I10 - ESSENTIAL (PRIMARY) HYPERTENSION Qualifiers: Hypertension type: essential hypertension Qualified Code(s): I10 - Essential (primary) hypertension (8) Hyperlipidemia Assessment/Plan: on statin; LDL cholesterol < 70mg/dL. Code(s): E78.5 - HYPERLIPIDEMIA, UNSPECIFIED (9) Palpitations Code(s): R00.2 - PALPITATIONS (10) Shortness of breath Code(s): R06.02 - SHORTNESS OF BREATH (11) Status post coronary artery stent placement Assessment/Plan: s/p coronary stents 09/18. On ASA and apixaban. Code(s): Z95.5 - PRESENCE OF CORONARY ANGIOPLASTY IMPLANT AND GRAFT (12) Panic anxiety syndrome Assessment/Plan: Pt is on lorazepam, which she usually takes prior to HD. She had two panic attacks while in ER yesterday. She is under a great deal of emotional stress at home (eg possible need to move to "a fpc" so as not to place burden of taking care of her on her ), and is depressed that all her time is taken up with HD and doctors' visits. She plans, as outpatient, to try to regain some independent time by having fewer office visits, if possible. She agrees to speak with a psychologist, but wants to do so as an outpatient. An SSRI may be of benefit. Code(s): F41.0 - PANIC DISORDER WITHOUT AGORAPHOBIA (13) Defibrillator discharge Code(s): Z45.02 - ENCNTR FOR ADJUST AND MGMT OF AUTOMATIC IMPLNTBL CARD DEFIB
--- NOTE | 2016-05-14 13:40 | PN ---
Progress Note, Physician History of Present Illness: Pt seen and examined at bedside. She is awake and alert. She complains of shortness of breath and wheezing. - Current Medication List Current Medications: Active Medications Albuterol/Ipratropium (Duoneb -) 1 amp NEB Q4H PRN PRN Reason: SHORTNESS OF BREATH Last Admin: 05/14/16 06:04 Dose: 1 amp Apixaban (Eliquis -) 2.5 mg PO BID [facility] Last Admin: 05/14/16 09:25 Dose: 2.5 mg Aspirin (Asa -) 81 mg PO DAILY [facility] Last Admin: 05/14/16 09:24 Dose: 81 mg Guaifenesin/Codeine Phosphate (Robitussin Ac -) 10 ml PO Q8H PRN PRN Reason: COUGH Last Admin: 05/14/16 06:03 Dose: 10 ml Piperacillin Sod/Tazobactam Sod (Zosyn 2.25gm Ivpb (Pre-Docked)) 50 mls @ 100 mls/hr IVPB Q8H-IV [facility] Last Admin: 05/14/16 09:25 Dose: 100 mls/hr Lorazepam (Ativan -) 0.5 mg PO Q8H PRN PRN Reason: ANXIETY Last Admin: 05/14/16 09:29 Dose: 0.5 mg Losartan Potassium (Cozaar -) 25 mg PO DAILY [facility] Last Admin: 05/14/16 09:24 Dose: 25 mg Metoprolol Succinate (Toprol Xl -) 50 mg PO DAILY [facility] Last Admin: 05/14/16 09:25 Dose: 50 mg Metoprolol Tartrate (Lopressor Injection -) 2.5 mg IVPUSH Q4H PRN PRN Reason: HR >/= 130 Last Admin: 05/14/16 01:02 Dose: 2.5 mg Oxycodone HCl (Roxicodone -) 5 mg PO Q6H PRN Last Admin: 05/14/16 03:20 Dose: 5 mg Pantoprazole Sodium (Protonix -) 40 mg PO DAILY [facility] Last Admin: 05/14/16 09:25 Dose: 40 mg Rosuvastatin Calcium (Crestor -) 5 mg PO HS [facility] Last Admin: 05/13/16 22:02 Dose: 5 mg Sevelamer Carbonate (Renvela -) 800 mg PO TIDCM [facility] Last Admin: 05/14/16 08:46 Dose: 800 mg - Objective Vital Signs: Vital Signs Temperature 97.3 F L 05/14/16 10:00 Pulse Rate 93 H 05/14/16 10:00 Respiratory Rate 20 05/14/16 10:00 Blood Pressure 118/40 05/14/16 10:00 O2 Sat by Pulse Oximetry (%) 96 05/14/16 09:00 Constitutional: Yes: Calm Eyes: Yes: Conjunctiva Clear HENT: Yes: Atraumatic Cardiovascular: Yes: S1, S2 Respiratory: Yes: On Nasal O2, Wheezes Gastrointestinal: Yes: Soft Musculoskeletal: Yes: WNL Extremities: Yes: Other (access with thrill and bruit) Edema: No Neurological: Yes: Oriented Psychiatric: Yes: Oriented Labs: CBC, BMP 05/13/16 09:50 05/13/16 09:50 INR, PTT INR 1.44 (0.82-1.09) H 05/11/16 09:02 Problem List - Problems (1) Defibrillator discharge Code(s): Z45.02 - ENCNTR FOR ADJUST AND MGMT OF AUTOMATIC IMPLNTBL CARD DEFIB (2) ESRD needing dialysis Code(s): N18.6 - END STAGE RENAL DISEASE (3) Panic anxiety syndrome Code(s): F41.0 - PANIC DISORDER WITHOUT AGORAPHOBIA (4) Pneumonia Code(s): J18.9 - PNEUMONIA, UNSPECIFIED ORGANISM Qualifiers: Pneumonia type: due to unspecified organism Laterality: unspecified laterality Lung location: unspecified part of lung Qualified Code(s): J18.9 - Pneumonia, unspecified organism (5) COPD (chronic obstructive pulmonary disease) Code(s): J44.9 - CHRONIC OBSTRUCTIVE PULMONARY DISEASE, UNSPECIFIED Qualifiers : COPD type: unspecified COPD Qualified Code(s): J44.9 - Chronic obstructive pulmonary disease, unspecified (6) A-fib Qualifiers: Atrial fibrillation type: unspecified Qualified Code(s): I48.91 - Unspecified atrial fibrillation (7) CHF (congestive heart failure) Code(s): I50.9 - HEART FAILURE, UNSPECIFIED Qualifiers: Congestive heart failure type: unspecified congestive heart failure type Congestive heart failure chronicity: unspecified congestive heart failure chronicity Qualified Code(s): I50.9 - Heart failure, unspecified (8) Cough Code(s): R05 - COUGH Assessment/Plan Current Medications Generic Name Dose Route Start Last Admin Trade Name Freq PRN Reason Stop Dose Admin Albuterol/Ipratropium 1 amp 05/12/16 15:02 05/14/16 06:04 Duoneb - NEB 1 amp Q4H PRN Administration SHORTNESS OF BREATH Apixaban 2.5 mg 05/11/16 22:00 05/14/16 09:25 Eliquis - PO 2.5 mg BID [facility] Administration Aspirin 81 mg 05/12/16 10:00 05/14/16 09:24 Asa - PO 81 mg DAILY [facility] Administration Guaifenesin/Codeine Phosphate 10 ml 05/13/16 20:59 05/14/16 06:03 Robitussin Ac - PO 10 ml Q8H PRN Administration COUGH Piperacillin Sod/Tazobactam Sod 50 mls @ 100 mls/hr 05/12/16 15:45 05/14/16 09: 25 Zosyn 2.25gm Ivpb (Pre-Docked) IVPB 100 mls/hr Q8H-IV [facility]ED Administration Lorazepam 0.5 mg 05/11/16 20:22 05/14/16 09:29 Ativan - PO 0.5 mg Q8H PRN Administration ANXIETY Losartan Potassium 25 mg 05/12/16 10:00 05/14/16 09:24 Cozaar - PO 25 mg DAILY [facility] Administration Metoprolol Succinate 50 mg 05/12/16 10:00 05/14/16 09:25 Toprol Xl - PO 50 mg DAILY [facility] Administration Metoprolol Tartrate 2.5 mg 05/11/16 22:54 05/14/16 01:02 Lopressor Injection - IVPUSH 2.5 mg Q4H PRN Administration HR >/= 130 Oxycodone HCl 5 mg 05/11/16 20:30 05/14/16 03:20 Roxicodone - PO 5 mg Q6H PRN Administration Pantoprazole Sodium 40 mg 05/12/16 10:00 05/14/16 09:25 Protonix - PO 40 mg DAILY [facility] Administration Rosuvastatin Calcium 5 mg 05/11/16 22:00 05/13/16 22:02 Crestor - PO 5 mg HS [facility] Administration Sevelamer Carbonate 800 mg 05/12/16 08:00 05/14/16 08:46 Renvela - PO 800 mg TIDCM [facility] Administration Impression 1. ESRD 2. PNA 3. HTN 4. CHF 5. pleural effusion 6. hypothyroidism 7. hyperlipidemia 8. MVP 9. a-fib Plan - pt still complains of shortness of breath - will arrange for HD in am - epogen for anemia - monitor pulse ox and cont oxygen - consider trial of steroids - cont abx - keep on tele - 3 hrs, 1000 heparin, 500 maintenance, permacath, hectorol 2 mcg, aranesp 35 weekly, [address] Zuluaga
[2016-05-14] MEDS: ROSUVASTATIN CA 5 MG TABLET (FP) PO SCH (21:34)
[2016-05-14] MEDS ORDERED: LORazepam 0.5 MG TABLET PO ONE (21:57)
[2016-05-14] MEDS ORDERED: LORazepam 0.5 MG TABLET ONE (22:08)
--- NOTE | 2016-05-14 23:10 | PN ---
Progress Note, Physician History of Present Illness: No new complaints - Current Medication List Current Medications: Active Medications Albuterol/Ipratropium (Duoneb -) 1 amp NEB Q4H PRN PRN Reason: SHORTNESS OF BREATH Last Admin: 05/14/16 14:15 Dose: 1 amp Apixaban (Eliquis -) 2.5 mg PO BID [facility] Last Admin: 05/14/16 21:34 Dose: 2.5 mg Aspirin (Asa -) 81 mg PO DAILY [facility] Last Admin: 05/14/16 09:24 Dose: 81 mg Epoetin Jose (Procrit -) 6,000 unit IVPUSH ONCE ONE Stop: 05/15/16 13:43 Guaifenesin/Codeine Phosphate (Robitussin Ac -) 10 ml PO Q8H PRN PRN Reason: COUGH Last Admin: 05/14/16 16:52 Dose: 10 ml Heparin Sodium (Porcine) (Heparin -) 1,000 unit IVPUSH ONCE ONE Stop: 05/15/16 13:43 Piperacillin Sod/Tazobactam Sod (Zosyn 2.25gm Ivpb (Pre-Docked)) 50 mls @ 100 mls/hr IVPB Q8H-IV [facility]ED Last Admin: 05/14/16 17:02 Dose: 100 mls/hr Losartan Potassium (Cozaar -) 25 mg PO DAILY [facility] Last Admin: 05/14/16 09:24 Dose: 25 mg Metoprolol Succinate (Toprol Xl -) 50 mg PO DAILY [facility] Last Admin: 05/14/16 09:25 Dose: 50 mg Metoprolol Tartrate (Lopressor Injection -) 2.5 mg IVPUSH Q4H PRN PRN Reason: HR >/= 130 Last Admin: 05/14/16 01:02 Dose: 2.5 mg Pantoprazole Sodium (Protonix -) 40 mg PO DAILY [facility] Last Admin: 05/14/16 09:25 Dose: 40 mg Paricalcitol (Zemplar -) 2 mcg IVPUSH ONCE ONE Stop: 05/15/16 13:45 Rosuvastatin Calcium (Crestor -) 5 mg PO HS [facility] Last Admin: 05/14/16 21:34 Dose: 5 mg Sevelamer Carbonate (Renvela -) 800 mg PO TIDCM [facility] Last Admin: 05/14/16 16:48 Dose: 800 mg - Objective Vital Signs: Vital Signs Temperature 97.8 F 05/14/16 22:00 Pulse Rate 93 H 05/14/16 22:00 Respiratory Rate 18 05/14/16 22:00 Blood Pressure 102/54 05/14/16 22:00 O2 Sat by Pulse Oximetry (%) 96 05/14/16 09:00 Constitutional: Yes: No Distress HENT: Yes: WNL Neck: Yes: Supple Cardiovascular: Yes: WNL, Regular Rate and Rhythm Respiratory: Yes: WNL, Regular, CTA Bilaterally Gastrointestinal: Yes: WNL, Normal Bowel Sounds, Soft Labs: CBC, BMP 05/13/16 09:50 05/13/16 09:50 INR, PTT INR 1.44 (0.82-1.09) H 05/11/16 09:02 Problem List - Problems (1) CHF (congestive heart failure) Code(s): I50.9 - HEART FAILURE, UNSPECIFIED Qualifiers: Congestive heart failure type: unspecified congestive heart failure type Congestive heart failure chronicity: unspecified congestive heart failure chronicity Qualified Code(s): I50.9 - Heart failure, unspecified (3) HTN (hypertension) Code(s): I10 - ESSENTIAL (PRIMARY) HYPERTENSION Qualifiers: Hypertension type: essential hypertension Qualified Code(s): I10 - Essential (primary) hypertension (4) Hyperlipidemia Code(s): E78.5 - HYPERLIPIDEMIA, UNSPECIFIED (5) Pneumonia Code(s): J18.9 - PNEUMONIA, UNSPECIFIED ORGANISM Qualifiers: Pneumonia type: due to unspecified organism Laterality: unspecified laterality Lung location: unspecified part of lung Qualified Code(s): J18.9 - Pneumonia, unspecified organism
[2016-05-15] MEDS: guaiFENesin/CODEINE 5 ML UNIT-DOSE CUPS PO PRN ×4 (00:10→23:17)
[2016-05-15] MEDS: ALBUTEROL SO4 2.5/IPRATROPIUM 0.5 INH SOL 3 ML VIAL.NEB. NEB PRN ×4 (01:37→23:24)
[2016-05-15] MEDS: PIPERACILLIN/TAZOB 2.25 GM 50 ML IVPB SCH ×3 (01:42→17:53)
[2016-05-15] MEDS: SEVELAMER CARBONATE 800 MG TAB (FP) PO SCH ×3 (08:40→17:53)
[2016-05-15] MEDS: ASPIRIN 81 MG CHEWABLE TABLETS PO SCH (09:20)
[2016-05-15] MEDS: PANTOPRAZOLE 40 MG TABLET (FP) PO SCH (09:21)
[2016-05-15] MEDS: APIXABAN 2.5 MG TABLET PO SCH ×2 (10:00→21:15)
[2016-05-15] MEDS: LOSARTAN POTASSIUM 25 MG TABLET PO SCH (10:00)
--- NOTE | 2016-05-15 10:28 | EKG ---
Test Reason : Blood Pressure : / mmHG Vent. Rate : 090 BPM Atrial Rate : 090 BPM P-R Int : 170 ms QRS Dur : 140 ms QT Int : 418 ms P-R-T Axes : 062 250 039 degrees QTc Int : 511 ms SINUS RHYTHM WITH FREQUENT and consecutive PREMATURE VENTRICULAR COMPLEXES AND PREMATURE ATRIAL COMPLEXES RIGHT SUPERIOR AXIS DEVIATION NON-SPECIFIC INTRA-VENTRICULAR CONDUCTION BLOCK CANNOT RULE OUT SEPTAL INFARCT , AGE UNDETERMINED ABNORMAL ECG WHEN COMPARED WITH ECG OF 13-MAY-2016 09:27, PREMATURE VENTRICULAR COMPLEXES ARE NOW PRESENT Confirmed by JENNY LYONS MD ([id number]) on 05/15/2016 10:28:18 AM Referred By: EMERITA GOLDBERG Confirmed By:JENNY LYONS MD
[2016-05-15] MEDS: METOPROLOL SUCCINATE 50 MG TAB.SR.24H (FP) PO SCH (12:41)
--- NOTE | 2016-05-15 13:38 | PN ---
Progress Note, Physician History of Present Illness: Pt seen and examined at bedside. She still complains of shortness of breath. She denies chest pain. - Current Medication List Current Medications: Active Medications Albuterol/Ipratropium (Duoneb -) 1 amp NEB Q4H PRN PRN Reason: SHORTNESS OF BREATH Last Admin: 05/15/16 06:04 Dose: 1 amp Apixaban (Eliquis -) 2.5 mg PO BID [facility] Last Admin: 05/15/16 10:00 Dose: Not Given Aspirin (Asa -) 81 mg PO DAILY [facility] Last Admin: 05/15/16 09:20 Dose: 81 mg Epoetin Jose (Procrit -) 6,000 unit IVPUSH ONCE ONE Stop: 05/15/16 14:01 Guaifenesin/Codeine Phosphate (Robitussin Ac -) 10 ml PO Q8H PRN PRN Reason: COUGH Last Admin: 05/15/16 09:21 Dose: 10 ml Heparin Sodium (Porcine) (Heparin -) 1,000 unit IVPUSH ONCE ONE Stop: 05/15/16 13:43 Piperacillin Sod/Tazobactam Sod (Zosyn 2.25gm Ivpb (Pre-Docked)) 50 mls @ 100 mls/hr IVPB Q8H-IV [facility] Last Admin: 05/15/16 09:21 Dose: 100 mls/hr Losartan Potassium (Cozaar -) 25 mg PO DAILY [facility] Last Admin: 05/15/16 10:00 Dose: Not Given Metoprolol Succinate (Toprol Xl -) 50 mg PO DAILY [facility] Last Admin: 05/15/16 12:41 Dose: 50 mg Metoprolol Tartrate (Lopressor Injection -) 2.5 mg IVPUSH Q4H PRN PRN Reason: HR >/= 130 Last Admin: 05/14/16 01:02 Dose: 2.5 mg Pantoprazole Sodium (Protonix -) 40 mg PO DAILY [facility] Last Admin: 05/15/16 09:21 Dose: 40 mg Paricalcitol (Zemplar -) 2 mcg IVPUSH ONCE ONE Stop: 05/15/16 14:01 Rosuvastatin Calcium (Crestor -) 5 mg PO HS [facility] Last Admin: 05/14/16 21:34 Dose: 5 mg Sevelamer Carbonate (Renvela -) 800 mg PO TIDCM [facility] Last Admin: 05/15/16 12:38 Dose: 800 mg - Objective Vital Signs: Vital Signs Temperature 98.5 F 05/15/16 10:00 Pulse Rate 90 05/15/16 10:00 Respiratory Rate 20 05/15/16 10:00 Blood Pressure 93/31 05/15/16 10:00 O2 Sat by Pulse Oximetry (%) 96 05/15/16 09:00 Constitutional: Yes: Calm Eyes: Yes: Conjunctiva Clear HENT: Yes: Atraumatic Neck: Yes: Supple Cardiovascular: Yes: S1, S2 Respiratory: Yes: On Nasal O2, Wheezes Gastrointestinal: Yes: Soft Genitourinary: Yes: WNL Edema: No Neurological: Yes: Oriented Psychiatric: Yes: Oriented Labs: CBC, BMP 05/13/16 09:50 05/13/16 09:50 INR, PTT INR 1.44 (0.82-1.09) H 05/11/16 09:02 Problem List - Problems (1) Defibrillator discharge Code(s): Z45.02 - ENCNTR FOR ADJUST AND MGMT OF AUTOMATIC IMPLNTBL CARD DEFIB (2) ESRD needing dialysis Code(s): N18.6 - END STAGE RENAL DISEASE (3) Panic anxiety syndrome Code(s): F41.0 - PANIC DISORDER WITHOUT AGORAPHOBIA (4) Pneumonia Code(s): J18.9 - PNEUMONIA, UNSPECIFIED ORGANISM Qualifiers: Pneumonia type: due to unspecified organism Laterality: unspecified laterality Lung location: unspecified part of lung Qualified Code(s): J18.9 - Pneumonia, unspecified organism (5) COPD (chronic obstructive pulmonary disease) Code(s): J44.9 - CHRONIC OBSTRUCTIVE PULMONARY DISEASE, UNSPECIFIED Qualifiers : COPD type: unspecified COPD Qualified Code(s): J44.9 - Chronic obstructive pulmonary disease, unspecified (6) A-fib Qualifiers: Atrial fibrillation type: unspecified Qualified Code(s): I48.91 - Unspecified atrial fibrillation (7) CHF (congestive heart failure) Code(s): I50.9 - HEART FAILURE, UNSPECIFIED Qualifiers: Congestive heart failure type: unspecified congestive heart failure type Congestive heart failure chronicity: unspecified congestive heart failure chronicity Qualified Code(s): I50.9 - Heart failure, unspecified (8) Cough Code(s): R05 - COUGH Assessment/Plan Current Medications Generic Name Dose Route Start Last Admin Trade Name Freq PRN Reason Stop Dose Admin Albuterol/Ipratropium 1 amp 05/12/16 15:02 05/15/16 06:04 Duoneb - NEB 1 amp Q4H PRN Administration SHORTNESS OF BREATH Apixaban 2.5 mg 05/11/16 22:00 05/15/16 10:00 Eliquis - PO Not Given BID [facility] Aspirin 81 mg 05/12/16 10:00 05/15/16 09:20 Asa - PO 81 mg DAILY [facility] Administration Epoetin Jose 6,000 unit 05/15/16 14:00 Procrit - IVPUSH 05/15/16 14:01 ONCE ONE Guaifenesin/Codeine Phosphate 10 ml 05/13/16 20:59 05/15/16 09:21 Robitussin Ac - PO 10 ml Q8H PRN Administration COUGH Heparin Sodium (Porcine) 1,000 unit 05/15/16 13:42 Heparin - IVPUSH 05/15/16 13:43 ONCE ONE Piperacillin Sod/Tazobactam Sod 50 mls @ 100 mls/hr 05/12/16 15:45 05/15/16 09: 21 Zosyn 2.25gm Ivpb (Pre-Docked) IVPB 100 mls/hr Q8H-IV [facility] Administration Losartan Potassium 25 mg 05/12/16 10:00 05/15/16 10:00 Cozaar - PO Not Given DAILY [facility] Metoprolol Succinate 50 mg 05/12/16 10:00 05/15/16 12:41 Toprol Xl - PO 50 mg DAILY [facility] Administration Metoprolol Tartrate 2.5 mg 05/11/16 22:54 05/14/16 01:02 Lopressor Injection - IVPUSH 2.5 mg Q4H PRN Administration HR >/= 130 Pantoprazole Sodium 40 mg 05/12/16 10:00 05/15/16 09:21 Protonix - PO 40 mg DAILY [facility] Administration Paricalcitol 2 mcg 05/15/16 14:00 Zemplar - IVPUSH 05/15/16 14:01 ONCE ONE Rosuvastatin Calcium 5 mg 05/11/16 22:00 05/14/16 21:34 Crestor - PO 5 mg HS [facility] Administration Sevelamer Carbonate 800 mg 05/12/16 08:00 05/15/16 12:38 Renvela - PO 800 mg TIDCM [facility] Administration Impression 1. ESRD 2. PNA 3. HTN 4. CHF 5. pleural effusion 6. hypothyroidism 7. hyperlipidemia 8. MVP 9. a-fib Plan - will arrange for HD today - cont abx - wheezing improving - monitor pulse ox - epogen for anemia - keep on tele - 3 hrs, 1000 heparin, 500 maintenance, permacath, hectorol 2 mcg, aranesp 35 weekly, [address] Zuluaga
[2016-05-15] MEDS ORDERED: HEPARIN NA (PORCINE) 5,000 UNITS/ML 1ML VIAL IVPUSH ONE (13:42)
[2016-05-15] MEDS ORDERED: LORazepam 0.5 MG TABLET ONE (13:55)
[2016-05-15] MEDS ORDERED: PARICALCITOL 5 MCG/ML VIAL IVPUSH ONE (14:00)
[2016-05-15] MEDS: LORazepam 0.5 MG TABLET PO PRN ×2 (14:00→23:17)
[2016-05-15] MEDS ORDERED: EPOETIN ALFA 3,000 UNIT/1 ML ML IVPUSH ONE (14:00)
--- NOTE | 2016-05-15 16:45 | PN ---
Progress Note, Physician History of Present Illness: patient still complain of sob says she thinks she is going t spike fever - Current Medication List Current Medications: Active Medications Albuterol/Ipratropium (Duoneb -) 1 amp NEB Q4H PRN PRN Reason: SHORTNESS OF BREATH Last Admin: 05/15/16 15:07 Dose: 1 amp Apixaban (Eliquis -) 2.5 mg PO BID [facility] Last Admin: 05/15/16 10:00 Dose: Not Given Aspirin (Asa -) 81 mg PO DAILY [facility] Last Admin: 05/15/16 09:20 Dose: 81 mg Guaifenesin/Codeine Phosphate (Robitussin Ac -) 10 ml PO Q8H PRN PRN Reason: COUGH Last Admin: 05/15/16 09:21 Dose: 10 ml Piperacillin Sod/Tazobactam Sod (Zosyn 2.25gm Ivpb (Pre-Docked)) 50 mls @ 100 mls/hr IVPB Q8H-IV OBED Last Admin: 05/15/16 09:21 Dose: 100 mls/hr Lorazepam (Ativan -) 0.5 mg PO Q8H PRN Last Admin: 05/15/16 14:00 Dose: 0.5 mg Losartan Potassium (Cozaar -) 25 mg PO DAILY [facility] Last Admin: 05/15/16 10:00 Dose: Not Given Metoprolol Succinate (Toprol Xl -) 50 mg PO DAILY [facility] Last Admin: 05/15/16 12:41 Dose: 50 mg Metoprolol Tartrate (Lopressor Injection -) 2.5 mg IVPUSH Q4H PRN PRN Reason: HR >/= 130 Last Admin: 05/14/16 01:02 Dose: 2.5 mg Pantoprazole Sodium (Protonix -) 40 mg PO DAILY [facility] Last Admin: 05/15/16 09:21 Dose: 40 mg Rosuvastatin Calcium (Crestor -) 5 mg PO HS [facility] Last Admin: 05/14/16 21:34 Dose: 5 mg Sevelamer Carbonate (Renvela -) 800 mg PO TIDCM [facility] Last Admin: 05/15/16 12:38 Dose: 800 mg - Objective Vital Signs: Vital Signs Temperature 98.1 F 05/15/16 14:00 Pulse Rate 110 H 05/15/16 16:23 Respiratory Rate 18 05/15/16 16:23 Blood Pressure 136/95 05/15/16 16:23 O2 Sat by Pulse Oximetry (%) 96 05/15/16 09:00 Constitutional: Yes: Calm, Moderate Distress Cardiovascular: Yes: Regular Rate and Rhythm Respiratory: Yes: On Nasal O2, Poor Air Entry, Rhonchi Gastrointestinal: Yes: Normal Bowel Sounds, Soft Musculoskeletal: Yes: WNL Extremities: Yes: WNL Neurological: Yes: Alert, Oriented Psychiatric: Yes: Alert Labs: CBC, BMP 05/13/16 09:50 05/13/16 09:50 INR, PTT INR 1.44 (0.82-1.09) H 05/11/16 09:02 Assessment/Plan patient evaluated and findings noted,patient is an immunocompromised patient patient is showing infiltrate in the lung which i think is pneumonia as she also ahs greenish sputum production Problem List - Problems (1) COPD (chronic obstructive pulmonary disease) Code(s): J44.9 - CHRONIC OBSTRUCTIVE PULMONARY DISEASE, UNSPECIFIED Qualifiers : COPD type: unspecified COPD Qualified Code(s): J44.9 - Chronic obstructive pulmonary disease, unspecified (2) A-fib Qualifiers: Atrial fibrillation type: unspecified Qualified Code(s): I48.91 - Unspecified atrial fibrillation (3) Acute on chronic systolic and diastolic heart failure, NYHA class 3 Code(s): I50.43 - ACUTE ON CHRONIC COMBINED SYSTOLIC AND DIASTOLIC HRT FAIL (4) Bleeding from dialysis shunt Code(s): T82.838A - HEMORRHAGE DUE TO VASCULAR PROSTH DEV/GRFT, INIT Qualifiers: Encounter type: initial encounter Qualified Code(s): T82.838A - Hemorrhage of vascular prosthetic devices, implants and grafts, initial encounter (5) Cough Code(s): R05 - COUGH (8) HTN (hypertension) Code(s): I10 - ESSENTIAL (PRIMARY) HYPERTENSION Qualifiers: Hypertension type: essential hypertension Qualified Code(s): I10 - Essential (primary) hypertension (9) Hyperlipidemia Code(s): E78.5 - HYPERLIPIDEMIA, UNSPECIFIED (10) Palpitations Code(s): R00.2 - PALPITATIONS (11) Paroxysmal atrial fibrillation Code(s): I48.0 - PAROXYSMAL ATRIAL FIBRILLATION (12) Shortness of breath Code(s): R06.02 - SHORTNESS OF BREATH (13) Anxiety and depression Code(s): F41.9 - ANXIETY DISORDER, UNSPECIFIED F32.9 - MAJOR DEPRESSIVE DISORDER, SINGLE EPISODE, UNSPECIFIED (14) Status post coronary artery stent placement Code(s): Z95.5 - PRESENCE OF CORONARY ANGIOPLASTY IMPLANT AND GRAFT (15) Panic anxiety syndrome Code(s): F41.0 - PANIC DISORDER WITHOUT AGORAPHOBIA pneumonia plan continue abx incentive adeline all cx result noted if patient spikes fever pls send blood cx
--- NOTE | 2016-05-15 17:09 | PN ---
Progress Note, Physician - Current Medication List Current Medications: Active Medications Albuterol/Ipratropium (Duoneb -) 1 amp NEB Q4H PRN PRN Reason: SHORTNESS OF BREATH Last Admin: 05/15/16 15:07 Dose: 1 amp Apixaban (Eliquis -) 2.5 mg PO BID [facility] Last Admin: 05/15/16 10:00 Dose: Not Given Aspirin (Asa -) 81 mg PO DAILY [facility] Last Admin: 05/15/16 09:20 Dose: 81 mg Guaifenesin/Codeine Phosphate (Robitussin Ac -) 10 ml PO Q8H PRN PRN Reason: COUGH Last Admin: 05/15/16 09:21 Dose: 10 ml Piperacillin Sod/Tazobactam Sod (Zosyn 2.25gm Ivpb (Pre-Docked)) 50 mls @ 100 mls/hr IVPB Q8H-IV OBED Last Admin: 05/15/16 09:21 Dose: 100 mls/hr Lorazepam (Ativan -) 0.5 mg PO Q8H PRN Last Admin: 05/15/16 14:00 Dose: 0.5 mg Losartan Potassium (Cozaar -) 25 mg PO DAILY [facility] Last Admin: 05/15/16 10:00 Dose: Not Given Metoprolol Succinate (Toprol Xl -) 50 mg PO DAILY [facility] Last Admin: 05/15/16 12:41 Dose: 50 mg Metoprolol Tartrate (Lopressor Injection -) 2.5 mg IVPUSH Q4H PRN PRN Reason: HR >/= 130 Last Admin: 05/14/16 01:02 Dose: 2.5 mg Pantoprazole Sodium (Protonix -) 40 mg PO DAILY [facility] Last Admin: 05/15/16 09:21 Dose: 40 mg Rosuvastatin Calcium (Crestor -) 5 mg PO HS [facility] Last Admin: 05/14/16 21:34 Dose: 5 mg Sevelamer Carbonate (Renvela -) 800 mg PO TIDCM [facility] Last Admin: 05/15/16 12:38 Dose: 800 mg - Objective Vital Signs: Vital Signs Temperature 98.1 F 05/15/16 14:00 Pulse Rate 110 H 05/15/16 16:23 Respiratory Rate 18 05/15/16 16:23 Blood Pressure 136/95 02/10/17 16:23 O2 Sat by Pulse Oximetry (%) 96 05/15/16 09:00 Constitutional: Yes: No Distress HENT: Yes: Atraumatic Neck: Yes: Supple Cardiovascular: Yes: Regular Rate and Rhythm Respiratory: Yes: CTA Bilaterally Gastrointestinal: Yes: Normal Bowel Sounds Extremities: Yes: WNL Neurological: Yes: Alert, Oriented Labs: CBC, BMP 05/13/16 09:50 05/13/16 09:50 INR, PTT INR 1.44 (0.82-1.09) H 05/11/16 09:02 Problem List - Problems (1) ESRD needing dialysis Code(s): N18.6 - END STAGE RENAL DISEASE (2) COPD (chronic obstructive pulmonary disease) Code(s): J44.9 - CHRONIC OBSTRUCTIVE PULMONARY DISEASE, UNSPECIFIED Qualifiers : COPD type: unspecified COPD Qualified Code(s): J44.9 - Chronic obstructive pulmonary disease, unspecified (3) A-fib Qualifiers: Atrial fibrillation type: unspecified Qualified Code(s): I48.91 - Unspecified atrial fibrillation (4) Atrial fibrillation with tachycardic ventricular rate Code(s): I48.91 - UNSPECIFIED ATRIAL FIBRILLATION (5) Defibrillator discharge Code(s): Z45.02 - ENCNTR FOR ADJUST AND MGMT OF AUTOMATIC IMPLNTBL CARD DEFIB (6) Pneumonia Code(s): J18.9 - PNEUMONIA, UNSPECIFIED ORGANISM Qualifiers: Pneumonia type: due to unspecified organism Laterality: unspecified laterality Lung location: unspecified part of lung Qualified Code(s): J18.9 - Pneumonia, unspecified organism (7) Acute on chronic systolic and diastolic heart failure, NYHA class 3 Code(s): I50.43 - ACUTE ON CHRONIC COMBINED SYSTOLIC AND DIASTOLIC HRT FAIL Assessment/Plan A/P 1. ESRD ON HD NEPRO CONSULT 2. PNA IV ABX ID CONSULT 3. HTN STABLE ON MEDS 4. CHF 5. pleural effusion 6. hypothyroidism 7. hyperlipidemia 8. MVP 9. a-fib CARDIO CONSULT CONTINUE HOME MEDS
[2016-05-15] MEDS: ROSUVASTATIN CA 5 MG TABLET (FP) PO SCH (21:13)
--- NOTE | 2016-05-15 22:50 | PN ---
Progress Note, Physician Chief Complaint: Pt alert; dislikes hemodialysis, and intermittently feels she cannot breathe; "this is a panic attack". - Current Medication List Current Medications: Active Medications Albuterol/Ipratropium (Duoneb -) 1 amp NEB Q4H PRN PRN Reason: SHORTNESS OF BREATH Last Admin: 05/15/16 15:07 Dose: 1 amp Apixaban (Eliquis -) 2.5 mg PO BID [facility] Last Admin: 05/15/16 21:15 Dose: 2.5 mg Aspirin (Asa -) 81 mg PO DAILY [facility] Last Admin: 05/15/16 09:20 Dose: 81 mg Guaifenesin/Codeine Phosphate (Robitussin Ac -) 10 ml PO Q8H PRN PRN Reason: COUGH Last Admin: 05/15/16 17:53 Dose: 10 ml Piperacillin Sod/Tazobactam Sod (Zosyn 2.25gm Ivpb (Pre-Docked)) 50 mls @ 100 mls/hr IVPB Q8H-IV OBED Last Admin: 05/15/16 17:53 Dose: 100 mls/hr Lorazepam (Ativan -) 0.5 mg PO Q8H PRN Last Admin: 05/15/16 14:00 Dose: 0.5 mg Losartan Potassium (Cozaar -) 25 mg PO DAILY [facility] Last Admin: 05/15/16 10:00 Dose: Not Given Metoprolol Succinate (Toprol Xl -) 50 mg PO DAILY [facility] Last Admin: 05/15/16 12:41 Dose: 50 mg Metoprolol Tartrate (Lopressor Injection -) 2.5 mg IVPUSH Q4H PRN PRN Reason: HR >/= 130 Last Admin: 05/14/16 01:02 Dose: 2.5 mg Pantoprazole Sodium (Protonix -) 40 mg PO DAILY [facility] Last Admin: 05/15/16 09:21 Dose: 40 mg Rosuvastatin Calcium (Crestor -) 5 mg PO HS [facility] Last Admin: 05/15/16 21:13 Dose: 5 mg Sevelamer Carbonate (Renvela -) 800 mg PO TIDCM [facility] Last Admin: 05/15/16 17:53 Dose: 800 mg - Objective Vital Signs: Vital Signs Temperature 98.1 F 05/15/16 14:00 Pulse Rate 110 H 05/15/16 16:23 Respiratory Rate 18 05/15/16 21:00 Blood Pressure 136/95 05/15/16 16:23 O2 Sat by Pulse Oximetry (%) 95 05/15/16 21:00 Constitutional: Yes: Anxious, Severe Distress, Thin Eyes: Yes: WNL HENT: Yes: WNL Neck: Yes: WNL Cardiovascular: Yes: Tachycardia, Pulse Irregular Respiratory: Yes: Tachypnea Gastrointestinal: Yes: Soft ...Rectal Exam: Yes: Deferred Genitourinary: No: Anuria Breast(s): Yes: WNL Musculoskeletal: Yes: Muscle Weakness Extremities: Yes: Cool Edema: No Peripheral Pulses WNL: No Peripheral Pulses: Left Doralis Pedis: 1+, Right Dorsalis Pedis: 1+ Wound/Incision: Yes: Other (LUE AV graft site without gross bleed) Neurological: Yes: Weakness Psychiatric: Yes: Alert, Oriented, Agitated, Other (anxiety/panic) Labs: CBC, BMP 05/13/16 09:50 05/13/16 09:50 INR, PTT INR 1.44 (0.82-1.09) H 05/11/16 09:02 - ....Imaging EKG: Image Reviewed (NSR with PVCs) Problem List - Problems (1) COPD (chronic obstructive pulmonary disease) Code(s): J44.9 - CHRONIC OBSTRUCTIVE PULMONARY DISEASE, UNSPECIFIED Qualifiers : COPD type: unspecified COPD Qualified Code(s): J44.9 - Chronic obstructive pulmonary disease, unspecified (2) A-fib Assessment/Plan: Periods of sinus tachycardia, AF with RVR when agitated during HD. Staying calm is difficult for her during HD sessions, even when given benzodiazepine and coached in deep breathing and relaxation techniques. On apixaban for AC; on ASA (hx CAD). Qualifiers: Atrial fibrillation type: unspecified Qualified Code(s): I48.91 - Unspecified atrial fibrillation (3) Acute on chronic systolic and diastolic heart failure, NYHA class 3 Assessment/Plan: On losartan and metoprolol ER. Undergoing HD. Code(s): I50.43 - ACUTE ON CHRONIC COMBINED SYSTOLIC AND DIASTOLIC HRT FAIL (4) Bleeding from dialysis shunt Assessment/Plan: F/u with vascular surgeon. On apixaban and ASA. Code(s): T82.838A - HEMORRHAGE DUE TO VASCULAR PROSTH DEV/GRFT, INIT Qualifiers: Encounter type: initial encounter Qualified Code(s): T82.838A - Hemorrhage of vascular prosthetic devices, implants and grafts, initial encounter (5) Cough Assessment/Plan: leukocytosis-->now WBC WNL; gives hx of "fever" at home and in ER (though not seen on ER notes). 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 Code(s): R05 - COUGH (6) ESRD (end stage renal disease) on dialysis Assessment/Plan: Undergoing HD 05/15/16; f/u electrolytes, volume status. (7) HTN (hypertension) Assessment/Plan: On losartan and metoprolol ER (the latter increased to 50 mg daily); f/u HR and BP. Code(s): I10 - ESSENTIAL (PRIMARY) HYPERTENSION Qualifiers: Hypertension type: essential hypertension Qualified Code(s): I10 - Essential (primary) hypertension (8) Hyperlipidemia Assessment/Plan: on statin; LDL cholesterol < 70mg/dL. Code(s): E78.5 - HYPERLIPIDEMIA, UNSPECIFIED (9) Palpitations Code(s): R00.2 - PALPITATIONS (10) Shortness of breath Code(s): R06.02 - SHORTNESS OF BREATH (11) Status post coronary artery stent placement Assessment/Plan: s/p coronary stents 09/18. On ASA and apixaban. Code(s): Z95.5 - PRESENCE OF CORONARY ANGIOPLASTY IMPLANT AND GRAFT (12) Panic anxiety syndrome Assessment/Plan: Pt is on lorazepam, which she usually takes prior to HD. She had two panic attacks while in ER yesterday. She is under a great deal of emotional stress at home (eg possible need to move to "a group home" so as not to place burden of taking care of her on her ), and is depressed that all her time is taken up with HD and doctors' visits. She plans, as outpatient, to try to regain some independent time by having fewer office visits, if possible. She agrees to speak with a psychologist, but wants to do so as an outpatient. An SSRI may be of benefit. Code(s): F41.0 - PANIC DISORDER WITHOUT AGORAPHOBIA (13) Defibrillator discharge Assessment/Plan: ICD algorhythm adjusted. Metoprolol ER increased from 37.5 to 50 mg daily; F/u HR and BP. F/u electrolytes (K+ 5.9 prior to HD 05/11/16; normal presently). Code(s): Z45.02 - ENCNTR FOR ADJUST AND MGMT OF AUTOMATIC IMPLNTBL CARD DEFIB
[2016-05-16] MEDS: PIPERACILLIN/TAZOB 2.25 GM 50 ML IVPB SCH ×3 (01:19→17:51)
[2016-05-16 07:35] LABS: BASOPHIL 0.3 % (0-2.0); EOSINOPHIL 0.6 % (0-4.5); MCH 31.8 pg (25.7-33.7); MCHC 32.1 g/dl (32.0-36.0); MEAN CELL VOLUME 99.1 fl (80-96); MEAN PLT VOLUME 8.2 fl (7.5-11.1); NEUTROPHILS 80.9 % (42.8-82.8); PLATELET COUNT 226 K/MM3 (134-434); RDW 15.5 % (11.6-15.6); WHITE BLOOD COUNT 9.9 K/mm3 (4.0-10.0)
[2016-05-16 08:07] LABS: CALCIUM 8.4 mg/dL (8.5-10.1); CREATININE 5.1 mg/dL (0.55-1.02)
[2016-05-16] MEDS: SEVELAMER CARBONATE 800 MG TAB (FP) PO SCH ×3 (08:15→17:51)
[2016-05-16] MEDS: METOPROLOL SUCCINATE 50 MG TAB.SR.24H (FP) PO SCH (09:09)
[2016-05-16] MEDS: PANTOPRAZOLE 40 MG TABLET (FP) PO SCH (09:09)
[2016-05-16] MEDS: ASPIRIN 81 MG CHEWABLE TABLETS PO SCH (09:09)
[2016-05-16] MEDS: LOSARTAN POTASSIUM 25 MG TABLET PO SCH (09:09)
[2016-05-16] MEDS: APIXABAN 2.5 MG TABLET PO SCH ×2 (09:09→21:14)
--- NOTE | 2016-05-16 09:57 | PN ---
Progress Note, Physician Chief Complaint: Cardiology for [facility] History of Present Illness: sitting in chair, no distress - Current Medication List Current Medications: Active Medications Albuterol/Ipratropium (Duoneb -) 1 amp NEB Q4H PRN PRN Reason: SHORTNESS OF BREATH Last Admin: 05/15/16 23:24 Dose: 1 amp Apixaban (Eliquis -) 2.5 mg PO BID [facility] Last Admin: 05/16/16 09:09 Dose: 2.5 mg Aspirin (Asa -) 81 mg PO DAILY [facility] Last Admin: 05/16/16 09:09 Dose: 81 mg Guaifenesin/Codeine Phosphate (Robitussin Ac -) 10 ml PO Q8H PRN PRN Reason: COUGH Last Admin: 05/15/16 23:17 Dose: 10 ml Piperacillin Sod/Tazobactam Sod (Zosyn 2.25gm Ivpb (Pre-Docked)) 50 mls @ 100 mls/hr IVPB Q8H-IV [facility] Last Admin: 05/16/16 09:09 Dose: 100 mls/hr Lorazepam (Ativan -) 0.5 mg PO Q8H PRN Last Admin: 05/15/16 23:17 Dose: 0.5 mg Losartan Potassium (Cozaar -) 25 mg PO DAILY [facility] Last Admin: 05/16/16 09:09 Dose: 25 mg Metoprolol Succinate (Toprol Xl -) 50 mg PO DAILY [facility] Last Admin: 05/16/16 09:09 Dose: 50 mg Metoprolol Tartrate (Lopressor Injection -) 2.5 mg IVPUSH Q4H PRN PRN Reason: HR >/= 130 Last Admin: 05/14/16 01:02 Dose: 2.5 mg Pantoprazole Sodium (Protonix -) 40 mg PO DAILY [facility] Last Admin: 05/16/16 09:09 Dose: 40 mg Rosuvastatin Calcium (Crestor -) 5 mg PO HS [facility] Last Admin: 05/15/16 21:13 Dose: 5 mg Sevelamer Carbonate (Renvela -) 800 mg PO TIDCM [facility] Last Admin: 05/16/16 08:15 Dose: 800 mg - Objective Vital Signs: Vital Signs Temperature 98.4 F 05/16/16 05:45 Pulse Rate 87 05/16/16 05:45 Respiratory Rate 20 05/16/16 05:45 Blood Pressure 107/39 05/16/16 05:45 O2 Sat by Pulse Oximetry (%) 95 05/15/16 21:00 Constitutional: Yes: No Distress Cardiovascular: Yes: Regular Rate and Rhythm Respiratory: Yes: Other (decreased basilar breath sounds) Gastrointestinal: Yes: Soft Edema: Yes Edema: LLE: 1+, RLE: 1+ Neurological: Yes: Alert, Oriented ...Motor Strength: WNL Labs: CBC, BMP 05/16/16 06:10 05/16/16 06:10 INR, PTT INR 1.44 (0.82-1.09) H 05/11/16 09:02 Laboratory Tests 05/16/16 05/16/16 06:10 06:10 WBC 9.9 Hgb 8.0 L Plt Count 226 Sodium 140 Potassium 4.1 BUN 40 H D Creatinine 5.1 H - ....Imaging EKG: Image Reviewed (TELE: SR, periods PAF, rare VPCs) Assessment/Plan PAF CAD ICM s/p ICD ESRD REC: To continue Eliquis for PAF Heart rate trend is well controlled on current dose Toprol.
--- NOTE | 2016-05-16 10:46 | PN ---
Progress Note (short form) - Note Progress Note: Left arm rose marie removed. Graft with good pulse. OK to use for dialysis access at next treatment.
[2016-05-16] MEDS: predniSONE 20 MG TABLET (UD) PO SCH ×2 (13:10→21:14)
--- NOTE | 2016-05-16 15:55 | PN ---
Progress Note, Physician History of Present Illness: feels slightly better than yesterday still sob - Current Medication List Current Medications: Active Medications Albuterol/Ipratropium (Duoneb -) 1 amp NEB Q4H PRN PRN Reason: SHORTNESS OF BREATH Last Admin: 05/15/16 23:24 Dose: 1 amp Apixaban (Eliquis -) 2.5 mg PO BID [facility] Last Admin: 05/16/16 09:09 Dose: 2.5 mg Aspirin (Asa -) 81 mg PO DAILY [facility] Last Admin: 05/16/16 09:09 Dose: 81 mg Guaifenesin/Codeine Phosphate (Robitussin Ac -) 10 ml PO Q8H PRN PRN Reason: COUGH Last Admin: 05/15/16 23:17 Dose: 10 ml Piperacillin Sod/Tazobactam Sod (Zosyn 2.25gm Ivpb (Pre-Docked)) 50 mls @ 100 mls/hr IVPB Q8H-IV OBED Last Admin: 05/16/16 09:09 Dose: 100 mls/hr Lorazepam (Ativan -) 0.5 mg PO Q8H PRN Last Admin: 05/15/16 23:17 Dose: 0.5 mg Losartan Potassium (Cozaar -) 25 mg PO DAILY [facility] Last Admin: 05/16/16 09:09 Dose: 25 mg Metoprolol Succinate (Toprol Xl -) 50 mg PO DAILY [facility] Last Admin: 05/16/16 09:09 Dose: 50 mg Metoprolol Tartrate (Lopressor Injection -) 2.5 mg IVPUSH Q4H PRN PRN Reason: HR >/= 130 Last Admin: 05/14/16 01:02 Dose: 2.5 mg Pantoprazole Sodium (Protonix -) 40 mg PO DAILY [facility] Last Admin: 05/16/16 09:09 Dose: 40 mg Prednisone (Deltasone -) 20 mg PO BID [facility] Last Admin: 05/16/16 13:10 Dose: 20 mg Rosuvastatin Calcium (Crestor -) 5 mg PO HS [facility] Last Admin: 05/15/16 21:13 Dose: 5 mg Sevelamer Carbonate (Renvela -) 800 mg PO TIDCM [facility] Last Admin: 05/16/16 13:10 Dose: 800 mg - Objective Vital Signs: Vital Signs Temperature 98.0 F 05/16/16 14:00 Pulse Rate 92 H 05/16/16 14:00 Respiratory Rate 20 05/16/16 14:00 Blood Pressure 109/48 05/16/16 14:00 O2 Sat by Pulse Oximetry (%) 96 05/16/16 09:47 Constitutional: Yes: No Distress, Calm HENT: Yes: Atraumatic Neck: Yes: Supple Cardiovascular: Yes: Regular Rate and Rhythm Respiratory: Yes: Regular, Wheezes Gastrointestinal: Yes: Normal Bowel Sounds, Soft Musculoskeletal: Yes: WNL Extremities: Yes: WNL Labs: CBC, BMP 05/16/16 06:10 05/16/16 06:10 INR, PTT INR 1.44 (0.82-1.09) H 05/11/16 09:02 Assessment/Plan patient evaluated and findings noted,patient is an immunocompromised patient patient is showing infiltrate in the lung which i think is pneumonia as she also ahs greenish sputum production Problem List - Problems (1) COPD (chronic obstructive pulmonary disease) Code(s): J44.9 - CHRONIC OBSTRUCTIVE PULMONARY DISEASE, UNSPECIFIED Qualifiers : COPD type: unspecified COPD Qualified Code(s): J44.9 - Chronic obstructive pulmonary disease, unspecified (2) A-fib Qualifiers: Atrial fibrillation type: unspecified Qualified Code(s): I48.91 - Unspecified atrial fibrillation (3) Acute on chronic systolic and diastolic heart failure, NYHA class 3 Code(s): I50.43 - ACUTE ON CHRONIC COMBINED SYSTOLIC AND DIASTOLIC HRT FAIL (4) Bleeding from dialysis shunt Code(s): T82.838A - HEMORRHAGE DUE TO VASCULAR PROSTH DEV/GRFT, INIT Qualifiers: Encounter type: initial encounter Qualified Code(s): T82.838A - Hemorrhage of vascular prosthetic devices, implants and grafts, initial encounter (5) Cough Code(s): R05 - COUGH (8) HTN (hypertension) Code(s): I10 - ESSENTIAL (PRIMARY) HYPERTENSION Qualifiers: Hypertension type: essential hypertension Qualified Code(s): I10 - Essential (primary) hypertension (9) Hyperlipidemia Code(s): E78.5 - HYPERLIPIDEMIA, UNSPECIFIED (10) Palpitations Code(s): R00.2 - PALPITATIONS (11) Paroxysmal atrial fibrillation Code(s): I48.0 - PAROXYSMAL ATRIAL FIBRILLATION (12) Shortness of breath Code(s): R06.02 - SHORTNESS OF BREATH (13) Anxiety and depression Code(s): F41.9 - ANXIETY DISORDER, UNSPECIFIED F32.9 - MAJOR DEPRESSIVE DISORDER, SINGLE EPISODE, UNSPECIFIED (14) Status post coronary artery stent placement Code(s): Z95.5 - PRESENCE OF CORONARY ANGIOPLASTY IMPLANT AND GRAFT (15) Panic anxiety syndrome Code(s): F41.0 - PANIC DISORDER WITHOUT AGORAPHOBIA pneumonia plan continue abx incentive adeline all cx result noted if patient spikes fever pls send blood cx steroids as pul
[2016-05-16] MEDS: ALBUTEROL SO4 2.5/IPRATROPIUM 0.5 INH SOL 3 ML VIAL.NEB. NEB PRN ×2 (16:09→19:38)
--- NOTE | 2016-05-16 18:12 | PN ---
Progress Note, Physician History of Present Illness: BETTER - Current Medication List Current Medications: Active Medications Albuterol/Ipratropium (Duoneb -) 1 amp NEB Q4H PRN PRN Reason: SHORTNESS OF BREATH Last Admin: 05/16/16 16:09 Dose: 1 amp Apixaban (Eliquis -) 2.5 mg PO BID [facility] Last Admin: 05/16/16 09:09 Dose: 2.5 mg Aspirin (Asa -) 81 mg PO DAILY [facility] Last Admin: 05/16/16 09:09 Dose: 81 mg Guaifenesin/Codeine Phosphate (Robitussin Ac -) 10 ml PO Q8H PRN PRN Reason: COUGH Last Admin: 05/15/16 23:17 Dose: 10 ml Piperacillin Sod/Tazobactam Sod (Zosyn 2.25gm Ivpb (Pre-Docked)) 50 mls @ 100 mls/hr IVPB Q8H-IV [facility] Last Admin: 05/16/16 17:51 Dose: 100 mls/hr Lorazepam (Ativan -) 0.5 mg PO Q8H PRN Last Admin: 05/15/16 23:17 Dose: 0.5 mg Losartan Potassium (Cozaar -) 25 mg PO DAILY [facility] Last Admin: 05/16/16 09:09 Dose: 25 mg Metoprolol Succinate (Toprol Xl -) 50 mg PO DAILY [facility] Last Admin: 05/16/16 09:09 Dose: 50 mg Metoprolol Tartrate (Lopressor Injection -) 2.5 mg IVPUSH Q4H PRN PRN Reason: HR >/= 130 Last Admin: 05/14/16 01:02 Dose: 2.5 mg Pantoprazole Sodium (Protonix -) 40 mg PO DAILY [facility] Last Admin: 05/16/16 09:09 Dose: 40 mg Prednisone (Deltasone -) 20 mg PO BID [facility] Last Admin: 05/16/16 13:10 Dose: 20 mg Rosuvastatin Calcium (Crestor -) 5 mg PO HS [facility] Last Admin: 05/15/16 21:13 Dose: 5 mg Sevelamer Carbonate (Renvela -) 800 mg PO TIDCM [facility] Last Admin: 05/16/16 17:51 Dose: 800 mg - Objective Vital Signs: Vital Signs Temperature 98.0 F 05/16/16 14:00 Pulse Rate 92 H 05/16/16 14:00 Respiratory Rate 20 05/16/16 14:00 Blood Pressure 109/48 05/16/16 14:00 O2 Sat by Pulse Oximetry (%) 96 05/16/16 09:47 Constitutional: Yes: No Distress HENT: Yes: Atraumatic Neck: Yes: Supple Cardiovascular: Yes: Regular Rate and Rhythm Respiratory: Yes: CTA Bilaterally Gastrointestinal: Yes: Normal Bowel Sounds Extremities: Yes: WNL Neurological: Yes: Alert, Oriented Labs: CBC, BMP 05/16/16 06:10 05/16/16 06:10 INR, PTT INR 1.44 (0.82-1.09) H 05/11/16 09:02 Problem List - Problems (1) ESRD needing dialysis Code(s): N18.6 - END STAGE RENAL DISEASE (2) COPD (chronic obstructive pulmonary disease) Code(s): J44.9 - CHRONIC OBSTRUCTIVE PULMONARY DISEASE, UNSPECIFIED Qualifiers : COPD type: unspecified COPD Qualified Code(s): J44.9 - Chronic obstructive pulmonary disease, unspecified (3) A-fib Qualifiers: Atrial fibrillation type: unspecified Qualified Code(s): I48.91 - Unspecified atrial fibrillation (4) Atrial fibrillation with tachycardic ventricular rate Code(s): I48.91 - UNSPECIFIED ATRIAL FIBRILLATION (5) Defibrillator discharge Code(s): Z45.02 - ENCNTR FOR ADJUST AND MGMT OF AUTOMATIC IMPLNTBL CARD DEFIB (6) Pneumonia Code(s): J18.9 - PNEUMONIA, UNSPECIFIED ORGANISM Qualifiers: Pneumonia type: due to unspecified organism Laterality: unspecified laterality Lung location: unspecified part of lung Qualified Code(s): J18.9 - Pneumonia, unspecified organism (7) Acute on chronic systolic and diastolic heart failure, NYHA class 3 Code(s): I50.43 - ACUTE ON CHRONIC COMBINED SYSTOLIC AND DIASTOLIC HRT FAIL Assessment/Plan A/P 1. ESRD ON HD 2. PNA IV ABX will repeat bcx as pt spiked temp 3. HTN STABLE ON MEDS 4. CHF 5. pleural effusion 6. hypothyroidism 7. hyperlipidemia 8. MVP 9. a-fib CARDIO CONSULT CONTINUE HOME MEDS
[2016-05-16] MEDS: ROSUVASTATIN CA 5 MG TABLET (FP) PO SCH (21:14)
[2016-05-16] MEDS: LORazepam 0.5 MG TABLET PO PRN (21:14)
[2016-05-17] MEDS: ALBUTEROL SO4 2.5/IPRATROPIUM 0.5 INH SOL 3 ML VIAL.NEB. NEB PRN ×4 (00:50→23:10)
[2016-05-17] MEDS: PIPERACILLIN/TAZOB 2.25 GM 50 ML IVPB SCH ×3 (02:11→18:51)
[2016-05-17] MEDS: SEVELAMER CARBONATE 800 MG TAB (FP) PO SCH ×3 (08:16→17:18)
--- NOTE | 2016-05-17 09:35 | PN ---
Progress Note, Physician Chief Complaint: Cardiology for Johny History of Present Illness: comfortable sitting in chair TELE: AF in 802, alternating wi NSR - Current Medication List Current Medications: Active Medications Albuterol/Ipratropium (Duoneb -) 1 amp NEB Q4H PRN PRN Reason: SHORTNESS OF BREATH Last Admin: 05/17/16 06:25 Dose: 1 amp Apixaban (Eliquis -) 2.5 mg PO BID [facility] Last Admin: 05/16/16 21:14 Dose: 2.5 mg Aspirin (Asa -) 81 mg PO DAILY [facility] Last Admin: 05/16/16 09:09 Dose: 81 mg Piperacillin Sod/Tazobactam Sod (Zosyn 2.25gm Ivpb (Pre-Docked)) 50 mls @ 100 mls/hr IVPB Q8H-IV [facility] Last Admin: 05/17/16 02:11 Dose: 100 mls/hr Lorazepam (Ativan -) 0.5 mg PO Q8H PRN Last Admin: 05/16/16 21:14 Dose: 0.5 mg Losartan Potassium (Cozaar -) 25 mg PO DAILY [facility] Last Admin: 05/16/16 09:09 Dose: 25 mg Metoprolol Succinate (Toprol Xl -) 50 mg PO DAILY [facility] Last Admin: 05/16/16 09:09 Dose: 50 mg Metoprolol Tartrate (Lopressor Injection -) 2.5 mg IVPUSH Q4H PRN PRN Reason: HR >/= 130 Last Admin: 05/14/16 01:02 Dose: 2.5 mg Pantoprazole Sodium (Protonix -) 40 mg PO DAILY [facility] Last Admin: 05/16/16 09:09 Dose: 40 mg Prednisone (Deltasone -) 20 mg PO BID [facility] Last Admin: 05/16/16 21:14 Dose: 20 mg Rosuvastatin Calcium (Crestor -) 5 mg PO HS [facility] Last Admin: 05/16/16 21:14 Dose: 5 mg Sevelamer Carbonate (Renvela -) 800 mg PO TIDCM [facility] Last Admin: 05/17/16 08:16 Dose: 800 mg - Objective Vital Signs: Vital Signs Temperature 97.7 F 05/17/16 06:00 Pulse Rate 82 05/17/16 06:00 Respiratory Rate 20 05/17/16 06:00 Blood Pressure 128/56 05/17/16 06:00 O2 Sat by Pulse Oximetry (%) 95 05/16/16 21:00 Constitutional: Yes: No Distress Cardiovascular: Yes: Regular Rate and Rhythm Respiratory: Yes: Other (decreased basilar breath sounds) Gastrointestinal: Yes: Soft Edema: Yes Edema: LLE: 1+, RLE: 1+ Neurological: Yes: Alert, Oriented ...Motor Strength: WNL Labs: CBC, BMP 05/16/16 06:10 05/16/16 06:10 INR, PTT INR 1.44 (0.82-1.09) H 05/11/16 09:02 Microbiology Laboratory Tests 05/16/16 05/16/16 06:10 06:10 WBC 9.9 Hgb 8.0 L Plt Count 226 Sodium 140 Potassium 4.1 BUN 40 H D Creatinine 5.1 H Assessment/Plan Assessment/Plan PAF CAD ICM s/p ICD ESRD REC: On Eliquis for PAF Heart rate trend is well controlled on current dose Toprol. Coverage for [facility]
[2016-05-17] MEDS: ASPIRIN 81 MG CHEWABLE TABLETS PO SCH (09:55)
[2016-05-17] MEDS: LOSARTAN POTASSIUM 25 MG TABLET PO SCH (09:55)
[2016-05-17] MEDS: APIXABAN 2.5 MG TABLET PO SCH ×2 (09:56→21:24)
[2016-05-17] MEDS: PANTOPRAZOLE 40 MG TABLET (FP) PO SCH (09:56)
[2016-05-17] MEDS: METOPROLOL SUCCINATE 50 MG TAB.SR.24H (FP) PO SCH (09:56)
[2016-05-17] MEDS: predniSONE 20 MG TABLET (UD) PO SCH ×2 (09:56→21:24)
--- NOTE | 2016-05-17 11:59 | PN ---
Progress Note (short form) - Note Progress Note: RENAL pt awake and alert lying flat comfortably had a panic attack yesterday during hd Last Vital Signs Temp Pulse Resp BP Pulse Ox 98.4 F 87 20 107/39 96 05/16/16 05:45 05/16/16 05:45 05/16/16 09:47 05/16/16 05:45 05/16/16 09:47 Current Medications Generic Name Dose Route Start Last Admin Trade Name Freq PRN Reason Stop Dose Admin Albuterol/Ipratropium 1 amp 05/12/16 15:02 05/15/16 23:24 Duoneb - NEB 1 amp Q4H PRN Administration SHORTNESS OF BREATH Apixaban 2.5 mg 05/11/16 22:00 05/16/16 09:09 Eliquis - PO 2.5 mg BID [facility] Administration Aspirin 81 mg 05/12/16 10:00 05/16/16 09:09 Asa - PO 81 mg DAILY [facility] Administration Guaifenesin/Codeine Phosphate 10 ml 05/13/16 20:59 05/15/16 23:17 Robitussin Ac - PO 10 ml Q8H PRN Administration COUGH Piperacillin Sod/Tazobactam Sod 50 mls @ 100 mls/hr 05/12/16 15:45 05/16/16 09: 09 Zosyn 2.25gm Ivpb (Pre-Docked) IVPB 100 mls/hr Q8H-IV [facility] Administration Lorazepam 0.5 mg 05/15/16 14:49 05/15/16 23:17 Ativan - PO 0.5 mg Q8H PRN Administration Losartan Potassium 25 mg 05/12/16 10:00 05/16/16 09:09 Cozaar - PO 25 mg DAILY [facility] Administration Metoprolol Succinate 50 mg 05/12/16 10:00 05/16/16 09:09 Toprol Xl - PO 50 mg DAILY [facility] Administration Metoprolol Tartrate 2.5 mg 05/11/16 22:54 05/14/16 01:02 Lopressor Injection - IVPUSH 2.5 mg Q4H PRN Administration HR >/= 130 Pantoprazole Sodium 40 mg 05/12/16 10:00 05/16/16 09:09 Protonix - PO 40 mg DAILY [facility] Administration Rosuvastatin Calcium 5 mg 05/11/16 22:00 05/15/16 21:13 Crestor - PO 5 mg HS [facility] Administration Sevelamer Carbonate 800 mg 05/12/16 08:00 05/16/16 08:15 Renvela - PO 800 mg TIDCM [facility] Administration PE awake and alert has some wheezing and rhonchi cvs s1s2 rr abd soft ext no edema neuro a+ox3 CBC, BMP 05/16/16 06:10 05/16/16 06:10 Impression 1. ESRD 2. PNA 3. HTN 4. CHF 5. pleural effusion 6. hypothyroidism 7. hyperlipidemia 8. MVP 9. a-fib 10 anemia Plan would ask pulmonary to evaluate her smokes a lot and always has a very strong aroma. I asked her to tell him to smoke away short course of steroids psych eval repeat chest x ray can be redialyzed tomorrow [facility]
--- NOTE | 2016-05-17 15:32 | PN ---
Progress Note, Physician History of Present Illness: patient still having chills no fever patient feels a little better - Current Medication List Current Medications: Active Medications Apixaban (Eliquis -) 2.5 mg PO BID [facility] Last Admin: 05/17/16 09:56 Dose: 2.5 mg Aspirin (Asa -) 81 mg PO DAILY [facility] Last Admin: 05/17/16 09:55 Dose: 81 mg Piperacillin Sod/Tazobactam Sod (Zosyn 2.25gm Ivpb (Pre-Docked)) 50 mls @ 100 mls/hr IVPB Q8H-IV [facility] Last Admin: 05/17/16 09:57 Dose: 100 mls/hr Lorazepam (Ativan -) 0.5 mg PO Q8H PRN Last Admin: 05/16/16 21:14 Dose: 0.5 mg Losartan Potassium (Cozaar -) 25 mg PO DAILY [facility] Last Admin: 05/17/16 09:55 Dose: 25 mg Metoprolol Succinate (Toprol Xl -) 50 mg PO DAILY [facility] Last Admin: 05/17/16 09:56 Dose: 50 mg Metoprolol Tartrate (Lopressor Injection -) 2.5 mg IVPUSH Q4H PRN PRN Reason: HR >/= 130 Last Admin: 05/14/16 01:02 Dose: 2.5 mg Pantoprazole Sodium (Protonix -) 40 mg PO DAILY [facility] Last Admin: 05/17/16 09:56 Dose: 40 mg Prednisone (Deltasone -) 20 mg PO BID [facility] Last Admin: 05/17/16 09:56 Dose: 20 mg Rosuvastatin Calcium (Crestor -) 5 mg PO HS [facility] Last Admin: 05/16/16 21:14 Dose: 5 mg Sevelamer Carbonate (Renvela -) 800 mg PO TIDCM [facility] Last Admin: 05/17/16 12:18 Dose: 800 mg - Objective Vital Signs: Vital Signs Temperature 97.3 F L 05/17/16 14:00 Pulse Rate 78 05/17/16 14:00 Respiratory Rate 20 05/17/16 14:00 Blood Pressure 128/56 05/17/16 06:00 O2 Sat by Pulse Oximetry (%) 95 05/16/16 21:00 Constitutional: Yes: No Distress, Calm Cardiovascular: Yes: Regular Rate and Rhythm Respiratory: Yes: Poor Air Entry, Rhonchi Gastrointestinal: Yes: Normal Bowel Sounds, Soft Musculoskeletal: Yes: WNL Extremities: Yes: WNL Neurological: Yes: Alert, Oriented Psychiatric: Yes: Alert Labs: CBC, BMP 05/16/16 06:10 05/16/16 06:10 INR, PTT INR 1.44 (0.82-1.09) H 05/11/16 09:02 Assessment/Plan patient evaluated and findings noted,patient is an immunocompromised patient patient is showing infiltrate in the lung which i think is pneumonia as she also ahs greenish sputum production Problem List - Problems (1) COPD (chronic obstructive pulmonary disease) Code(s): J44.9 - CHRONIC OBSTRUCTIVE PULMONARY DISEASE, UNSPECIFIED Qualifiers : COPD type: unspecified COPD Qualified Code(s): J44.9 - Chronic obstructive pulmonary disease, unspecified (2) A-fib Qualifiers: Atrial fibrillation type: unspecified Qualified Code(s): I48.91 - Unspecified atrial fibrillation (3) Acute on chronic systolic and diastolic heart failure, NYHA class 3 Code(s): I50.43 - ACUTE ON CHRONIC COMBINED SYSTOLIC AND DIASTOLIC HRT FAIL (4) Bleeding from dialysis shunt Code(s): T82.838A - HEMORRHAGE DUE TO VASCULAR PROSTH DEV/GRFT, INIT Qualifiers: Encounter type: initial encounter Qualified Code(s): T82.838A - Hemorrhage of vascular prosthetic devices, implants and grafts, initial encounter (5) Cough Code(s): R05 - COUGH (8) HTN (hypertension) Code(s): I10 - ESSENTIAL (PRIMARY) HYPERTENSION Qualifiers: Hypertension type: essential hypertension Qualified Code(s): I10 - Essential (primary) hypertension (9) Hyperlipidemia Code(s): E78.5 - HYPERLIPIDEMIA, UNSPECIFIED (10) Palpitations Code(s): R00.2 - PALPITATIONS (11) Paroxysmal atrial fibrillation Code(s): I48.0 - PAROXYSMAL ATRIAL FIBRILLATION (12) Shortness of breath Code(s): R06.02 - SHORTNESS OF BREATH (13) Anxiety and depression Code(s): F41.9 - ANXIETY DISORDER, UNSPECIFIED F32.9 - MAJOR DEPRESSIVE DISORDER, SINGLE EPISODE, UNSPECIFIED (14) Status post coronary artery stent placement Code(s): Z95.5 - PRESENCE OF CORONARY ANGIOPLASTY IMPLANT AND GRAFT (15) Panic anxiety syndrome Code(s): F41.0 - PANIC DISORDER WITHOUT AGORAPHOBIA pneumonia bacteremia plan positive blood cx will start patient on vanco
[2016-05-17] MEDS ORDERED: VANCOMYCIN 1 GRAM (PRE-DOCKED) 250 ML IVPB ONE (16:15)
[2016-05-17] MEDS: guaiFENesin/CODEINE 5 ML UNIT-DOSE CUPS PO PRN (16:24)
--- NOTE | 2016-05-17 20:09 | PN ---
Progress Note, Physician History of Present Illness: BETTER - Current Medication List Current Medications: Active Medications Albuterol/Ipratropium (Duoneb -) 1 amp NEB Q4H PRN PRN Reason: SHORTNESS OF BREATH Last Admin: 05/17/16 19:30 Dose: 1 amp Apixaban (Eliquis -) 2.5 mg PO BID [facility] Last Admin: 05/17/16 09:56 Dose: 2.5 mg Aspirin (Asa -) 81 mg PO DAILY [facility] Last Admin: 05/17/16 09:55 Dose: 81 mg Guaifenesin/Codeine Phosphate (Robitussin Ac -) 10 ml PO Q8H PRN PRN Reason: COUGH Last Admin: 05/17/16 16:24 Dose: 10 ml Piperacillin Sod/Tazobactam Sod (Zosyn 2.25gm Ivpb (Pre-Docked)) 50 mls @ 100 mls/hr IVPB Q8H-IV [facility] Last Admin: 05/17/16 18:51 Dose: 100 mls/hr Lorazepam (Ativan -) 0.5 mg PO Q8H PRN Last Admin: 05/16/16 21:14 Dose: 0.5 mg Losartan Potassium (Cozaar -) 25 mg PO DAILY [facility] Last Admin: 05/17/16 09:55 Dose: 25 mg Metoprolol Succinate (Toprol Xl -) 50 mg PO DAILY [facility] Last Admin: 05/17/16 09:56 Dose: 50 mg Metoprolol Tartrate (Lopressor Injection -) 2.5 mg IVPUSH Q4H PRN PRN Reason: HR >/= 130 Last Admin: 05/14/16 01:02 Dose: 2.5 mg Pantoprazole Sodium (Protonix -) 40 mg PO DAILY [facility] Last Admin: 05/17/16 09:56 Dose: 40 mg Prednisone (Deltasone -) 20 mg PO BID [facility] Last Admin: 05/17/16 09:56 Dose: 20 mg Rosuvastatin Calcium (Crestor -) 5 mg PO HS [facility] Last Admin: 05/16/16 21:14 Dose: 5 mg Sevelamer Carbonate (Renvela -) 800 mg PO TIDCM [facility] Last Admin: 05/17/16 17:18 Dose: 800 mg - Objective Vital Signs: Vital Signs Temperature 97.3 F L 05/17/16 14:00 Pulse Rate 78 05/17/16 14:00 Respiratory Rate 20 05/17/16 14:00 Blood Pressure 128/56 05/17/16 06:00 O2 Sat by Pulse Oximetry (%) 99 05/17/16 09:00 Constitutional: Yes: No Distress HENT: Yes: Atraumatic Neck: Yes: Supple Cardiovascular: Yes: Regular Rate and Rhythm Respiratory: Yes: CTA Bilaterally Gastrointestinal: Yes: Normal Bowel Sounds Extremities: Yes: WNL Neurological: Yes: Alert, Oriented Labs: CBC, BMP 05/16/16 06:10 05/16/16 06:10 INR, PTT INR 1.44 (0.82-1.09) H 05/11/16 09:02 Problem List - Problems (1) ESRD needing dialysis Code(s): N18.6 - END STAGE RENAL DISEASE (2) COPD (chronic obstructive pulmonary disease) Code(s): J44.9 - CHRONIC OBSTRUCTIVE PULMONARY DISEASE, UNSPECIFIED Qualifiers : COPD type: unspecified COPD Qualified Code(s): J44.9 - Chronic obstructive pulmonary disease, unspecified (3) A-fib Qualifiers: Atrial fibrillation type: unspecified Qualified Code(s): I48.91 - Unspecified atrial fibrillation (4) Atrial fibrillation with tachycardic ventricular rate Code(s): I48.91 - UNSPECIFIED ATRIAL FIBRILLATION (5) Defibrillator discharge Code(s): Z45.02 - ENCNTR FOR ADJUST AND MGMT OF AUTOMATIC IMPLNTBL CARD DEFIB (6) Pneumonia Code(s): J18.9 - PNEUMONIA, UNSPECIFIED ORGANISM Qualifiers: Pneumonia type: due to unspecified organism Laterality: unspecified laterality Lung location: unspecified part of lung Qualified Code(s): J18.9 - Pneumonia, unspecified organism (7) Acute on chronic systolic and diastolic heart failure, NYHA class 3 Code(s): I50.43 - ACUTE ON CHRONIC COMBINED SYSTOLIC AND DIASTOLIC HRT FAIL Assessment/Plan A/P 1. ESRD ON HD 2. PNA IV ABX BCX...POSITIVE 3. HTN STABLE ON MEDS 4. CHF 5. pleural effusion 6. hypothyroidism 7. hyperlipidemia 8. MVP 9. a-fib CARDIO CONSULT CONTINUE HOME MEDS
[2016-05-17] MEDS: ROSUVASTATIN CA 5 MG TABLET (FP) PO SCH (21:25)
[2016-05-17] MEDS: LORazepam 0.5 MG TABLET PO PRN (21:25)
[2016-05-18] MEDS: PIPERACILLIN/TAZOB 2.25 GM 50 ML IVPB SCH ×3 (01:40→17:24)
[2016-05-18] MEDS: SEVELAMER CARBONATE 800 MG TAB (FP) PO SCH ×3 (08:56→17:24)
[2016-05-18] MEDS: guaiFENesin/CODEINE 5 ML UNIT-DOSE CUPS PO PRN (08:58)
[2016-05-18] MEDS: LORazepam 0.5 MG TABLET PO PRN (08:58)
[2016-05-18] MEDS: predniSONE 20 MG TABLET (UD) PO SCH ×2 (08:59→21:15)
[2016-05-18] MEDS: PANTOPRAZOLE 40 MG TABLET (FP) PO SCH (08:59)
[2016-05-18] MEDS: ASPIRIN 81 MG CHEWABLE TABLETS PO SCH (08:59)
[2016-05-18] MEDS: LOSARTAN POTASSIUM 25 MG TABLET PO SCH (09:00)
[2016-05-18] MEDS: METOPROLOL SUCCINATE 50 MG TAB.SR.24H (FP) PO SCH (09:01)
[2016-05-18] MEDS: APIXABAN 2.5 MG TABLET PO SCH ×3 (09:01→21:15)
[2016-05-18 10:49] LABS: MCH 31.3 pg (25.7-33.7); MCHC 31.9 g/dl (32.0-36.0); MEAN CELL VOLUME 97.9 fl (80-96); MEAN PLT VOLUME 8.5 fl (7.5-11.1); PLATELET COUNT 227 K/MM3 (134-434); RDW 15.5 % (11.6-15.6); WHITE BLOOD COUNT 11.3 K/mm3 (4.0-10.0)
[2016-05-18 11:20] LABS: CALCIUM 7.3 mg/dL (8.5-10.1)
[2016-05-18] MEDS ORDERED: EPOETIN ALFA 3,000 UNIT/1 ML ML IVPUSH ONE (11:45)
--- NOTE | 2016-05-18 13:51 | PN ---
Progress Note, Physician History of Present Illness: BETTER - Current Medication List Current Medications: Active Medications Albuterol/Ipratropium (Duoneb -) 1 amp NEB Q4H PRN PRN Reason: SHORTNESS OF BREATH Last Admin: 05/17/16 23:10 Dose: 1 amp Apixaban (Eliquis -) 2.5 mg PO BID [facility] Last Admin: 05/18/16 09:01 Dose: Not Given Aspirin (Asa -) 81 mg PO DAILY [facility] Last Admin: 05/18/16 08:59 Dose: 81 mg Guaifenesin/Codeine Phosphate (Robitussin Ac -) 10 ml PO Q8H PRN PRN Reason: COUGH Last Admin: 05/18/16 08:58 Dose: 10 ml Piperacillin Sod/Tazobactam Sod (Zosyn 2.25gm Ivpb (Pre-Docked)) 50 mls @ 100 mls/hr IVPB Q8H-IV [facility] Last Admin: 05/18/16 09:01 Dose: 100 mls/hr Lorazepam (Ativan -) 0.5 mg PO Q8H PRN Last Admin: 05/18/16 08:58 Dose: 0.5 mg Losartan Potassium (Cozaar -) 25 mg PO DAILY [facility] Last Admin: 05/18/16 09:00 Dose: Not Given Metoprolol Succinate (Toprol Xl -) 50 mg PO DAILY [facility] Last Admin: 05/18/16 09:01 Dose: Not Given Metoprolol Tartrate (Lopressor Injection -) 2.5 mg IVPUSH Q4H PRN PRN Reason: HR >/= 130 Last Admin: 05/14/16 01:02 Dose: 2.5 mg Pantoprazole Sodium (Protonix -) 40 mg PO DAILY [facility] Last Admin: 05/18/16 08:59 Dose: 40 mg Prednisone (Deltasone -) 20 mg PO BID [facility] Last Admin: 05/18/16 08:59 Dose: 20 mg Rosuvastatin Calcium (Crestor -) 5 mg PO HS [facility] Last Admin: 05/17/16 21:25 Dose: 5 mg Sevelamer Carbonate (Renvela -) 800 mg PO TIDCM [facility] Last Admin: 05/18/16 12:46 Dose: 800 mg - Objective Vital Signs: Vital Signs Temperature 98.6 F 05/18/16 13:22 Pulse Rate 69 05/18/16 13:22 Respiratory Rate 18 05/18/16 13:22 Blood Pressure 122/60 05/18/16 13:22 O2 Sat by Pulse Oximetry (%) 99 05/18/16 09:00 Constitutional: Yes: No Distress HENT: Yes: Atraumatic Neck: Yes: Supple Cardiovascular: Yes: Regular Rate and Rhythm Respiratory: Yes: Rhonchi Gastrointestinal: Yes: Normal Bowel Sounds Extremities: Yes: WNL Neurological: Yes: Alert, Oriented Labs: CBC, BMP 05/18/16 10:00 05/18/16 10:00 INR, PTT INR 1.44 (0.82-1.09) H 05/11/16 09:02 Problem List - Problems (1) ESRD needing dialysis Code(s): N18.6 - END STAGE RENAL DISEASE (2) COPD (chronic obstructive pulmonary disease) Code(s): J44.9 - CHRONIC OBSTRUCTIVE PULMONARY DISEASE, UNSPECIFIED Qualifiers : COPD type: unspecified COPD Qualified Code(s): J44.9 - Chronic obstructive pulmonary disease, unspecified (3) A-fib Qualifiers: Atrial fibrillation type: unspecified Qualified Code(s): I48.91 - Unspecified atrial fibrillation (4) Atrial fibrillation with tachycardic ventricular rate Code(s): I48.91 - UNSPECIFIED ATRIAL FIBRILLATION (5) Defibrillator discharge Code(s): Z45.02 - ENCNTR FOR ADJUST AND MGMT OF AUTOMATIC IMPLNTBL CARD DEFIB (6) Pneumonia Code(s): J18.9 - PNEUMONIA, UNSPECIFIED ORGANISM Qualifiers: Pneumonia type: due to unspecified organism Laterality: unspecified laterality Lung location: unspecified part of lung Qualified Code(s): J18.9 - Pneumonia, unspecified organism (7) Acute on chronic systolic and diastolic heart failure, NYHA class 3 Code(s): I50.43 - ACUTE ON CHRONIC COMBINED SYSTOLIC AND DIASTOLIC HRT FAIL Assessment/Plan A/P 1. ESRD ON HD 2. PNA IV ABX BCX...POSITIVE 3. HTN STABLE ON MEDS 4. CHF 5. pleural effusion 6. hypothyroidism 7. hyperlipidemia 8. MVP 9. a-fib CARDIO CONSULT CONTINUE HOME MEDS
--- NOTE | 2016-05-18 14:00 | PN ---
Progress Note, Physician History of Present Illness: The patient is an 80 year old female, with a significant past medical history of anemia, Afib s/p defibrillator on eliquis, COPD (on home O2 as needed), CHF, HTN, hyperlipidemia, hypothyroidism, ESRD (on dialysis MWF, recent revision on her fistula) and overactive bladder, who presents to the emergency department with shortness of breath since approximately 9PM last night shortly after her defibrillator went off. The patient additionally reports intermittent palpitations and a productive cough. The patient states that she has been coughing up phlegm w/o hemopytsis. The patient reports that she needs to have dialysis today as her most recent dialysis was last Wednesday (05/08/2016). Pt does note that she feels more sob when laying flat, deines any leg swelling. The patient denies any chest pain prior to coming to the ED, but endorsed some CP after initial evaluation. The patient denies fever, chills, nausea, vomiting, diarrhea or melena/bpr. PMH ASHD drug eluting stent placement in proximal RCA on June 04, 2009. [address] Bradford VALE of mid RCA September 13, 2014 Dr. Etienne ESRD on HD 2015 HTN Hyperlipidemia LBBB Moderate AR NSTEMI August 2014 [employer] right JOSE and EIA September 03, 2014 Dr. Etienne s/p sudden cardiac [place] 2016 Severely reduced systolic function Subcutaneus AICD PPI 2016 SVT rx with cardizem June 2015 [facility] - Current Medication List Current Medications: Active Medications Albuterol/Ipratropium (Duoneb -) 1 amp NEB Q4H PRN PRN Reason: SHORTNESS OF BREATH Last Admin: 05/17/16 23:10 Dose: 1 amp Apixaban (Eliquis -) 2.5 mg PO BID [facility] Last Admin: 05/18/16 09:01 Dose: Not Given Aspirin (Asa -) 81 mg PO DAILY [facility] Last Admin: 05/18/16 08:59 Dose: 81 mg Guaifenesin/Codeine Phosphate (Robitussin Ac -) 10 ml PO Q8H PRN PRN Reason: COUGH Last Admin: 05/18/16 08:58 Dose: 10 ml Piperacillin Sod/Tazobactam Sod (Zosyn 2.25gm Ivpb (Pre-Docked)) 50 mls @ 100 mls/hr IVPB Q8H-IV [facility] Last Admin: 05/18/16 09:01 Dose: 100 mls/hr Lorazepam (Ativan -) 0.5 mg PO Q8H PRN Last Admin: 05/18/16 08:58 Dose: 0.5 mg Losartan Potassium (Cozaar -) 25 mg PO DAILY [facility] Last Admin: 05/18/16 09:00 Dose: Not Given Metoprolol Succinate (Toprol Xl -) 50 mg PO DAILY [facility] Last Admin: 05/18/16 09:01 Dose: Not Given Metoprolol Tartrate (Lopressor Injection -) 2.5 mg IVPUSH Q4H PRN PRN Reason: HR >/= 130 Last Admin: 05/14/16 01:02 Dose: 2.5 mg Pantoprazole Sodium (Protonix -) 40 mg PO DAILY [facility] Last Admin: 05/18/16 08:59 Dose: 40 mg Prednisone (Deltasone -) 20 mg PO BID [facility] Last Admin: 05/18/16 08:59 Dose: 20 mg Rosuvastatin Calcium (Crestor -) 5 mg PO HS [facility] Last Admin: 05/17/16 21:25 Dose: 5 mg Sevelamer Carbonate (Renvela -) 800 mg PO TIDCM [facility] Last Admin: 05/18/16 12:46 Dose: 800 mg - Objective Vital Signs: Vital Signs Temperature 98.6 F 05/18/16 13:22 Pulse Rate 69 05/18/16 13:22 Respiratory Rate 18 05/18/16 13:22 Blood Pressure 122/60 05/18/16 13:22 O2 Sat by Pulse Oximetry (%) 99 05/18/16 09:00 Eyes: Yes: WNL, Conjunctiva Clear, EOM Intact HENT: Yes: WNL, Atraumatic, Normocephalic Neck: Yes: WNL, Supple, Trachea Midline Cardiovascular: Yes: Pulse Irregular Respiratory: Yes: WNL, Regular, CTA Bilaterally Gastrointestinal: Yes: WNL, Normal Bowel Sounds Genitourinary: Yes: WNL Musculoskeletal: Yes: WNL Extremities: Yes: WNL Edema: No Edema: LLE: 1+, RLE: 1+ Integumentary: Yes: WNL Neurological: Yes: WNL, Alert, Oriented ...Motor Strength: WNL Psychiatric: Yes: WNL Labs: CBC, BMP 05/18/16 10:00 05/18/16 10:00 INR, PTT INR 1.44 (0.82-1.09) H 05/11/16 09:02 Problem List - Problems (1) A-fib Qualifiers: Atrial fibrillation type: unspecified Qualified Code(s): I48.91 - Unspecified atrial fibrillation (2) Acute on chronic systolic and diastolic heart failure, NYHA class 3 Code(s): I50.43 - ACUTE ON CHRONIC COMBINED SYSTOLIC AND DIASTOLIC HRT FAIL (3) Anxiety Code(s): F41.9 - ANXIETY DISORDER, UNSPECIFIED (4) Atrial fibrillation with tachycardic ventricular rate Code(s): I48.91 - UNSPECIFIED ATRIAL FIBRILLATION (5) Bleeding from dialysis shunt Code(s): T82.838A - HEMORRHAGE DUE TO VASCULAR PROSTH DEV/GRFT, INIT Qualifiers: Encounter type: initial encounter Qualified Code(s): T82.838A - Hemorrhage of vascular prosthetic devices, implants and grafts, initial encounter (6) CHF (congestive heart failure) Code(s): I50.9 - HEART FAILURE, UNSPECIFIED Qualifiers: Congestive heart failure type: unspecified congestive heart failure type Congestive heart failure chronicity: unspecified congestive heart failure chronicity Qualified Code(s): I50.9 - Heart failure, unspecified (7) Chest pain Code(s): R07.9 - CHEST PAIN, UNSPECIFIED Qualifiers: Chest pain type: unspecified Qualified Code(s): R07.9 - Chest pain, unspecified (9) Cough Code(s): R05 - COUGH (10) DVT prophylaxis Code(s): EUQ3661 - (12) ESRD needing dialysis Code(s): N18.6 - END STAGE RENAL DISEASE (13) Fever Code(s): R50.9 - FEVER, UNSPECIFIED Qualifiers: Fever type: unspecified Qualified Code(s): R50.9 - Fever, unspecified (14) HTN (hypertension) Code(s): I10 - ESSENTIAL (PRIMARY) HYPERTENSION Qualifiers: Hypertension type: essential hypertension Qualified Code(s): I10 - Essential (primary) hypertension (15) Hyperlipidemia Code(s): E78.5 - HYPERLIPIDEMIA, UNSPECIFIED (16) Hypokalemia Code(s): E87.6 - HYPOKALEMIA (17) Palpitations Code(s): R00.2 - PALPITATIONS (18) Pneumonia Code(s): J18.9 - PNEUMONIA, UNSPECIFIED ORGANISM Qualifiers: Pneumonia type: due to unspecified organism Laterality: unspecified laterality Lung location: unspecified part of lung Qualified Code(s): J18.9 - Pneumonia, unspecified organism (19) Shortness of breath Code(s): R06.02 - SHORTNESS OF BREATH (20) Steal syndrome as complication of dialysis access Code(s): T82.898A - [facility] COMPLICATION OF VASCULAR PROSTH DEV/GRFT, INIT Qualifiers: Encounter type: initial encounter Qualified Code(s): T82.898A - Other specified complication of vascular prosthetic devices, implants and grafts , initial encounter (21) [place] Code(s): I47.2 - VENTRICULAR TACHYCARDIA (22) Ventricular fibrillation Code(s): I49.01 - VENTRICULAR FIBRILLATION (23) Volume overload Code(s): E87.70 - FLUID OVERLOAD, UNSPECIFIED Qualifiers: Hypervolemia type: unspecified Qualified Code(s): E87.70 - Fluid overload, unspecified (24) Anemia Code(s): D64.9 - ANEMIA, UNSPECIFIED (25) Aortic dissection Code(s): I71.00 - DISSECTION OF UNSPECIFIED SITE OF AORTA (26) CAD (coronary artery disease) Code(s): I25.10 - ATHSCL HEART DISEASE OF [place] CORONARY ARTERY W/O ANG PCTRS Qualifiers: (27) COPD (chronic obstructive pulmonary disease) Code(s): J44.9 - CHRONIC OBSTRUCTIVE PULMONARY DISEASE, UNSPECIFIED Qualifiers : COPD type: unspecified COPD Qualified Code(s): J44.9 - Chronic obstructive pulmonary disease, unspecified (28) Cholelithiasis Code(s): K80.20 - CALCULUS OF GALLBLADDER W/O CHOLECYSTITIS W/O OBSTRUCTION (29) Chronic systolic (congestive) heart failure Code(s): I50.22 - CHRONIC SYSTOLIC (CONGESTIVE) HEART FAILURE (30) ESRD (end stage renal disease) Code(s): N18.6 - END STAGE RENAL DISEASE (31) Hypertriglyceridemia Code(s): E78.1 - PURE HYPERGLYCERIDEMIA (32) Status post coronary artery stent placement Code(s): Z95.5 - PRESENCE OF CORONARY ANGIOPLASTY IMPLANT AND GRAFT (33) Thyroid disorder Code(s): E07.9 - DISORDER OF THYROID, UNSPECIFIED Assessment/Plan - Problems (1) COPD (chronic obstructive pulmonary disease) Code(s): J44.9 - CHRONIC OBSTRUCTIVE PULMONARY DISEASE, UNSPECIFIED Qualifiers : COPD type: unspecified COPD Qualified Code(s): J44.9 - Chronic obstructive pulmonary disease, unspecified (2) A-fib Assessment/Plan: Periods of sinus tachycardia, AF with RVR when agitated during HD. Staying calm is difficult for her during HD sessions, even when given benzodiazepine and coached in deep breathing and relaxation techniques. On apixaban for AC; on ASA (hx CAD). Qualifiers: Atrial fibrillation type: unspecified Qualified Code(s): I48.91 - Unspecified atrial fibrillation (3) Acute on chronic systolic and diastolic heart failure, NYHA class 3 Assessment/Plan: On losartan and metoprolol ER. Undergoing HD. Code(s): I50.43 - ACUTE ON CHRONIC COMBINED SYSTOLIC AND DIASTOLIC HRT FAIL (4) Bleeding from dialysis shunt Assessment/Plan: F/u with vascular surgeon. On apixaban and ASA. Code(s): T82.838A - HEMORRHAGE DUE TO VASCULAR PROSTH DEV/GRFT, INIT Qualifiers: Encounter type: initial encounter Qualified Code(s): T82.838A - Hemorrhage of vascular prosthetic devices, implants and grafts, initial encounter (5) Cough Assessment/Plan: leukocytosis-->now WBC WNL; gives hx of "fever" at home and in ER (though not seen on ER notes). Negative blood cultures; +INSIDE UPHOLSTERER swab for influenza. Code(s): R05 - COUGH (6) ESRD (end stage renal disease) on dialysis Assessment/Plan: Undergoing HD 05/15/16; f/u electrolytes, volume status. (7) HTN (hypertension) Assessment/Plan: On losartan and metoprolol ER (the latter increased to 50 mg daily); f/u HR and BP. Code(s): I10 - ESSENTIAL (PRIMARY) HYPERTENSION Qualifiers: Hypertension type: essential hypertension Qualified Code(s): I10 - Essential (primary) hypertension (8) Hyperlipidemia Assessment/Plan: on statin; LDL cholesterol < 70mg/dL. Code(s): E78.5 - HYPERLIPIDEMIA, UNSPECIFIED (9) Palpitations Code(s): R00.2 - PALPITATIONS (10) Shortness of breath Code(s): R06.02 - SHORTNESS OF BREATH (11) Status post coronary artery stent placement Assessment/Plan: s/p coronary stents 09/18. On ASA and apixaban. Code(s): Z95.5 - PRESENCE OF CORONARY ANGIOPLASTY IMPLANT AND GRAFT (12) Panic anxiety syndrome Assessment/Plan: Pt is on lorazepam, which she usually takes prior to HD. She had two panic attacks while in ER yesterday. She is under a great deal of emotional stress at home (eg possible need to move to "a longterm" so as not to place burden of taking care of her on her ), and is depressed that all her time is taken up with HD and doctors' visits. She plans, as outpatient, to try to regain some independent time by having fewer office visits, if possible. She agrees to speak with a psychologist, but wants to do so as an outpatient. An SSRI may be of benefit. Code(s): F41.0 - PANIC DISORDER WITHOUT AGORAPHOBIA (13) Defibrillator discharge Assessment/Plan: ICD algorhythm adjusted. Metoprolol ER increased from 37.5 to 50 mg daily; F/u HR and BP. F/u electrolytes (K+ 5.9 prior to HD 05/11/16; normal presently). Code(s): Z45.02 - ENCNTR FOR ADJUST AND MGMT OF AUTOMATIC IMPLNTBL CARD DEFIB
--- NOTE | 2016-05-18 14:42 | PN ---
Progress Note, Physician History of Present Illness: Pt seen and examined at bedside. She is awake and alert. She tolerated HD today. She still complains of shortness of breath. - Current Medication List Current Medications: Active Medications Albuterol/Ipratropium (Duoneb -) 1 amp NEB Q4H PRN PRN Reason: SHORTNESS OF BREATH Last Admin: 05/17/16 23:10 Dose: 1 amp Apixaban (Eliquis -) 2.5 mg PO BID [facility] Last Admin: 05/18/16 09:01 Dose: Not Given Aspirin (Asa -) 81 mg PO DAILY [facility] Last Admin: 05/18/16 08:59 Dose: 81 mg Guaifenesin/Codeine Phosphate (Robitussin Ac -) 10 ml PO Q8H PRN PRN Reason: COUGH Last Admin: 05/18/16 08:58 Dose: 10 ml Piperacillin Sod/Tazobactam Sod (Zosyn 2.25gm Ivpb (Pre-Docked)) 50 mls @ 100 mls/hr IVPB Q8H-IV [facility] Last Admin: 05/18/16 09:01 Dose: 100 mls/hr Lorazepam (Ativan -) 0.5 mg PO Q8H PRN Last Admin: 05/18/16 08:58 Dose: 0.5 mg Losartan Potassium (Cozaar -) 25 mg PO DAILY [facility] Last Admin: 05/18/16 09:00 Dose: Not Given Metoprolol Succinate (Toprol Xl -) 50 mg PO DAILY [facility] Last Admin: 05/18/16 09:01 Dose: Not Given Metoprolol Tartrate (Lopressor Injection -) 2.5 mg IVPUSH Q4H PRN PRN Reason: HR >/= 130 Last Admin: 05/14/16 01:02 Dose: 2.5 mg Pantoprazole Sodium (Protonix -) 40 mg PO DAILY [facility] Last Admin: 05/18/16 08:59 Dose: 40 mg Prednisone (Deltasone -) 20 mg PO BID [facility] Last Admin: 05/18/16 08:59 Dose: 20 mg Rosuvastatin Calcium (Crestor -) 5 mg PO HS [facility] Last Admin: 05/17/16 21:25 Dose: 5 mg Sevelamer Carbonate (Renvela -) 800 mg PO TIDCM [facility] Last Admin: 02/13/17 12:46 Dose: 800 mg - Objective Vital Signs: Vital Signs Temperature 98.6 F 05/18/16 13:22 Pulse Rate 69 05/18/16 13:22 Respiratory Rate 18 05/18/16 13:22 Blood Pressure 122/60 05/18/16 13:22 O2 Sat by Pulse Oximetry (%) 99 05/18/16 09:00 Constitutional: Yes: Calm Eyes: Yes: Conjunctiva Clear HENT: Yes: Atraumatic Neck: Yes: Supple Cardiovascular: Yes: S1, S2 Respiratory: Yes: On Nasal O2, Wheezes Gastrointestinal: Yes: Soft Genitourinary: Yes: WNL Musculoskeletal: Yes: WNL Extremities: Yes: Other (access with thrill and bruit) Edema: No Neurological: Yes: Oriented Psychiatric: Yes: Oriented Labs: CBC, BMP 05/18/16 10:00 05/18/16 10:00 INR, PTT INR 1.44 (0.82-1.09) H 05/11/16 09:02 Problem List - Problems (1) Defibrillator discharge Code(s): Z45.02 - ENCNTR FOR ADJUST AND MGMT OF AUTOMATIC IMPLNTBL CARD DEFIB (2) ESRD needing dialysis Code(s): N18.6 - END STAGE RENAL DISEASE (3) Panic anxiety syndrome Code(s): F41.0 - PANIC DISORDER WITHOUT AGORAPHOBIA (4) Pneumonia Code(s): J18.9 - PNEUMONIA, UNSPECIFIED ORGANISM Qualifiers: Pneumonia type: due to unspecified organism Laterality: unspecified laterality Lung location: unspecified part of lung Qualified Code(s): J18.9 - Pneumonia, unspecified organism (5) COPD (chronic obstructive pulmonary disease) Code(s): J44.9 - CHRONIC OBSTRUCTIVE PULMONARY DISEASE, UNSPECIFIED Qualifiers : COPD type: unspecified COPD Qualified Code(s): J44.9 - Chronic obstructive pulmonary disease, unspecified (6) A-fib Qualifiers: Atrial fibrillation type: unspecified Qualified Code(s): I48.91 - Unspecified atrial fibrillation (7) CHF (congestive heart failure) Code(s): I50.9 - HEART FAILURE, UNSPECIFIED Qualifiers: Congestive heart failure type: unspecified congestive heart failure type Congestive heart failure chronicity: unspecified congestive heart failure chronicity Qualified Code(s): I50.9 - Heart failure, unspecified (8) Cough Code(s): R05 - COUGH Assessment/Plan Current Medications Generic Name Dose Route Start Last Admin Trade Name Freq PRN Reason Stop Dose Admin Albuterol/Ipratropium 1 amp 05/17/16 19:08 05/17/16 23:10 Duoneb - NEB 1 amp Q4H PRN Administration SHORTNESS OF BREATH Apixaban 2.5 mg 05/11/16 22:00 05/18/16 09:01 Eliquis - PO Not Given BID [facility] Aspirin 81 mg 05/12/16 10:00 05/18/16 08:59 Asa - PO 81 mg DAILY [facility] Administration Guaifenesin/Codeine Phosphate 10 ml 05/17/16 16:07 05/18/16 08:58 Robitussin Ac - PO 10 ml Q8H PRN Administration COUGH Piperacillin Sod/Tazobactam Sod 50 mls @ 100 mls/hr 05/12/16 15:45 05/18/16 09: 01 Zosyn 2.25gm Ivpb (Pre-Docked) IVPB 100 mls/hr Q8H-IV [facility] Administration Lorazepam 0.5 mg 05/15/16 14:49 05/18/16 08:58 Ativan - PO 0.5 mg Q8H PRN Administration Losartan Potassium 25 mg 05/12/16 10:00 05/18/16 09:00 Cozaar - PO Not Given DAILY [facility] Metoprolol Succinate 50 mg 05/12/16 10:00 05/18/16 09:01 Toprol Xl - PO Not Given DAILY [facility] Metoprolol Tartrate 2.5 mg 05/11/16 22:54 05/14/16 01:02 Lopressor Injection - IVPUSH 2.5 mg Q4H PRN Administration HR >/= 130 Pantoprazole Sodium 40 mg 05/12/16 10:00 05/18/16 08:59 Protonix - PO 40 mg DAILY [facility] Administration Prednisone 20 mg 05/16/16 11:30 05/18/16 08:59 Deltasone - PO 20 mg BID [facility] Administration Rosuvastatin Calcium 5 mg 05/11/16 22:00 05/17/16 21:25 Crestor - PO 5 mg HS [facility] Administration Sevelamer Carbonate 800 mg 05/12/16 08:00 05/18/16 12:46 Renvela - PO 800 mg TIDCM [facility] Administration Impression 1. ESRD 2. PNA 3. HTN 4. CHF 5. pleural effusion 6. hypothyroidism 7. hyperlipidemia 8. MVP 9. a-fib Plan - pt tolerated HD - PRBC transfusion for anemia - consider pulmonary evaluation as SOB is persistent - abx per ID - monitor pulse ox - epogen for anemia - keep on tele - 3 hrs, 1000 heparin, 500 maintenance, permacath, hectorol 2 mcg, aranesp 35 weekly, [address] Zuluaga
[2016-05-18] MEDS ORDERED: PT OWN MED DRAWER 7, Y5N ONE (15:38)
--- NOTE | 2016-05-18 16:42 | PN ---
Progress Note, Physician History of Present Illness: stable feeling better - Current Medication List Current Medications: Active Medications Albuterol/Ipratropium (Duoneb -) 1 amp NEB Q4H PRN PRN Reason: SHORTNESS OF BREATH Last Admin: 05/17/16 23:10 Dose: 1 amp Apixaban (Eliquis -) 2.5 mg PO BID [facility] Last Admin: 05/18/16 15:40 Dose: 2.5 mg Aspirin (Asa -) 81 mg PO DAILY [facility] Last Admin: 05/18/16 08:59 Dose: 81 mg Guaifenesin/Codeine Phosphate (Robitussin Ac -) 10 ml PO Q8H PRN PRN Reason: COUGH Last Admin: 05/18/16 08:58 Dose: 10 ml Piperacillin Sod/Tazobactam Sod (Zosyn 2.25gm Ivpb (Pre-Docked)) 50 mls @ 100 mls/hr IVPB Q8H-IV [facility] Last Admin: 05/18/16 09:01 Dose: 100 mls/hr Lorazepam (Ativan -) 1 mg PO TID PRN PRN Reason: ANXIETY Losartan Potassium (Cozaar -) 25 mg PO DAILY [facility] Last Admin: 05/18/16 09:00 Dose: Not Given Metoprolol Succinate (Toprol Xl -) 50 mg PO DAILY [facility] Last Admin: 05/18/16 09:01 Dose: Not Given Metoprolol Tartrate (Lopressor Injection -) 2.5 mg IVPUSH Q4H PRN PRN Reason: HR >/= 130 Last Admin: 05/14/16 01:02 Dose: 2.5 mg Pantoprazole Sodium (Protonix -) 40 mg PO DAILY [facility] Last Admin: 05/18/16 08:59 Dose: 40 mg Prednisone (Deltasone -) 20 mg PO BID [facility] Last Admin: 05/18/16 08:59 Dose: 20 mg Rosuvastatin Calcium (Crestor -) 5 mg PO HS [facility] Last Admin: 05/17/16 21:25 Dose: 5 mg Sevelamer Carbonate (Renvela -) 800 mg PO TIDCM [facility] Last Admin: 05/18/16 12:46 Dose: 800 mg - Objective Vital Signs: Vital Signs Temperature 97.7 F 05/18/16 14:53 Pulse Rate 108 H 05/18/16 14:53 Respiratory Rate 20 05/18/16 14:53 Blood Pressure 124/56 05/18/16 14:53 O2 Sat by Pulse Oximetry (%) 99 05/18/16 09:00 Constitutional: Yes: Calm, Mild Distress Cardiovascular: Yes: Regular Rate and Rhythm Respiratory: Yes: Regular, Poor Air Entry, Rhonchi Gastrointestinal: Yes: Normal Bowel Sounds, Soft Musculoskeletal: Yes: WNL Extremities: Yes: WNL Neurological: Yes: Alert, Oriented Psychiatric: Yes: Alert Labs: CBC, BMP 05/18/16 10:00 05/18/16 10:00 INR, PTT INR 1.44 (0.82-1.09) H 05/11/16 09:02 Assessment/Plan patient evaluated and findings noted,patient is an immunocompromised patient patient is showing infiltrate in the lung which i think is pneumonia as she also ahs greenish sputum production Problem List - Problems (1) COPD (chronic obstructive pulmonary disease) Code(s): J44.9 - CHRONIC OBSTRUCTIVE PULMONARY DISEASE, UNSPECIFIED Qualifiers : COPD type: unspecified COPD Qualified Code(s): J44.9 - Chronic obstructive pulmonary disease, unspecified (2) A-fib Qualifiers: Atrial fibrillation type: unspecified Qualified Code(s): I48.91 - Unspecified atrial fibrillation (3) Acute on chronic systolic and diastolic heart failure, NYHA class 3 Code(s): I50.43 - ACUTE ON CHRONIC COMBINED SYSTOLIC AND DIASTOLIC HRT FAIL (4) Bleeding from dialysis shunt Code(s): T82.838A - HEMORRHAGE DUE TO VASCULAR PROSTH DEV/GRFT, INIT Qualifiers: Encounter type: initial encounter Qualified Code(s): T82.838A - Hemorrhage of vascular prosthetic devices, implants and grafts, initial encounter (5) Cough Code(s): R05 - COUGH (8) HTN (hypertension) Code(s): I10 - ESSENTIAL (PRIMARY) HYPERTENSION Qualifiers: Hypertension type: essential hypertension Qualified Code(s): I10 - Essential (primary) hypertension (9) Hyperlipidemia Code(s): E78.5 - HYPERLIPIDEMIA, UNSPECIFIED (10) Palpitations Code(s): R00.2 - PALPITATIONS (11) Paroxysmal atrial fibrillation Code(s): I48.0 - PAROXYSMAL ATRIAL FIBRILLATION (12) Shortness of breath Code(s): R06.02 - SHORTNESS OF BREATH (13) Anxiety and depression Code(s): F41.9 - ANXIETY DISORDER, UNSPECIFIED F32.9 - MAJOR DEPRESSIVE DISORDER, SINGLE EPISODE, UNSPECIFIED (14) Status post coronary artery stent placement Code(s): Z95.5 - PRESENCE OF CORONARY ANGIOPLASTY IMPLANT AND GRAFT (15) Panic anxiety syndrome Code(s): F41.0 - PANIC DISORDER WITHOUT AGORAPHOBIA pneumonia bacteremia plan will repeat blood cx continue abx
[2016-05-18] MEDS: ALBUTEROL SO4 2.5/IPRATROPIUM 0.5 INH SOL 3 ML VIAL.NEB. NEB PRN (21:08)
[2016-05-18] MEDS: ROSUVASTATIN CA 5 MG TABLET (FP) PO SCH (21:15)
[2016-05-18] MEDS: LORazepam 1 MG TABLET PO PRN (21:15)
[2016-05-19] MEDS: ALBUTEROL SO4 2.5/IPRATROPIUM 0.5 INH SOL 3 ML VIAL.NEB. NEB PRN ×4 (01:27→22:42)
[2016-05-19] MEDS: PIPERACILLIN/TAZOB 2.25 GM 50 ML IVPB SCH ×2 (02:30→09:09)
[2016-05-19] MEDS: guaiFENesin/CODEINE 5 ML UNIT-DOSE CUPS PO PRN (09:09)
[2016-05-19] MEDS: SEVELAMER CARBONATE 800 MG TAB (FP) PO SCH ×3 (09:09→17:42)
[2016-05-19] MEDS: METOPROLOL SUCCINATE 50 MG TAB.SR.24H (FP) PO SCH (09:09)
[2016-05-19] MEDS: ASPIRIN 81 MG CHEWABLE TABLETS PO SCH (09:09)
[2016-05-19] MEDS: predniSONE 20 MG TABLET (UD) PO SCH ×2 (09:09→21:15)
[2016-05-19] MEDS: APIXABAN 2.5 MG TABLET PO SCH ×2 (09:09→21:15)
[2016-05-19] MEDS: PANTOPRAZOLE 40 MG TABLET (FP) PO SCH (09:09)
[2016-05-19] MEDS: LOSARTAN POTASSIUM 25 MG TABLET PO SCH (09:16)
--- NOTE | 2016-05-19 12:23 | PN ---
Progress Note, Physician Chief Complaint: Pt A&Ox3; at bedside. She denies chest pain, dyspnea, or anxiety. Discusses potential transfer to rehab facility. History of Present Illness: The patient is an 80 year old white female, with a significant past medical history of anemia, Afib s/p ICD 09/2015 ; on Eliquis, COPD (on home O2 as needed ), systolic (borderline reduced LVEF)/diastolic CHF, HTN, hyperlipidemia, hypothyroidism, ESRD (on dialysis MWF, recent revision on her fistula); anxiety/ depression/panic, and overactive bladder, who presents to the emergency department with shortness of breath since approximately 9PM last night shortly after her defibrillator went off. The patient additionally reports intermittent palpitations and a productive cough that began last weekend. The patient states that she has been coughing up phlegm w/o hemopytsis. The patient reports that she needs to have dialysis today as her most recent dialysis was last Wednesday (05/08/2016). The patient does note that she feels more sob when laying flat, denies any leg swelling. The patient denies any chest pain prior to coming to the ED, but endorsed some CP after initial evaluation. The patient denies fever, chills , nausea, vomiting, diarrhea or melena/bpr. Allergies: None reported. Past Surgical History: Stents x 3, Defibrillator (09/27/2015). Social History: Former smoker (quit 08/2014). Denies alcohol or drug use. PCP: Dr. Swanson Calender Tender: Dr. Chris Web Software Engineer: Dr. Lopez - Current Medication List Current Medications: Active Medications Albuterol/Ipratropium (Duoneb -) 1 amp NEB Q4H PRN PRN Reason: SHORTNESS OF BREATH Last Admin: 05/19/16 11:20 Dose: 1 amp Apixaban (Eliquis -) 2.5 mg PO BID [facility] Last Admin: 05/19/16 09:09 Dose: 2.5 mg Aspirin (Asa -) 81 mg PO DAILY [facility] Last Admin: 05/19/16 09:09 Dose: 81 mg Guaifenesin/Codeine Phosphate (Robitussin Ac -) 10 ml PO Q8H PRN PRN Reason: COUGH Last Admin: 05/19/16 09:09 Dose: 10 ml Piperacillin Sod/Tazobactam Sod (Zosyn 2.25gm Ivpb (Pre-Docked)) 50 mls @ 100 mls/hr IVPB Q8H-IV [facility]ED Last Admin: 05/19/16 09:09 Dose: 100 mls/hr Lorazepam (Ativan -) 1 mg PO TID PRN PRN Reason: ANXIETY Last Admin: 05/18/16 21:15 Dose: 1 mg Losartan Potassium (Cozaar -) 25 mg PO DAILY [facility] Last Admin: 05/19/16 09:16 Dose: 25 mg Metoprolol Succinate (Toprol Xl -) 50 mg PO DAILY [facility] Last Admin: 05/19/16 09:09 Dose: 50 mg Metoprolol Tartrate (Lopressor Injection -) 2.5 mg IVPUSH Q4H PRN PRN Reason: HR >/= 130 Last Admin: 05/14/16 01:02 Dose: 2.5 mg Pantoprazole Sodium (Protonix -) 40 mg PO DAILY [facility] Last Admin: 05/19/16 09:09 Dose: 40 mg Prednisone (Deltasone -) 20 mg PO BID [facility] Last Admin: 05/19/16 09:09 Dose: 20 mg Rosuvastatin Calcium (Crestor -) 5 mg PO HS [facility] Last Admin: 05/18/16 21:15 Dose: 5 mg Sevelamer Carbonate (Renvela -) 800 mg PO TIDCM [facility] Last Admin: 05/19/16 09:09 Dose: 800 mg - Objective Vital Signs: Vital Signs Temperature 97.8 F 05/19/16 09:00 Pulse Rate 83 05/19/16 11:20 Respiratory Rate 18 05/19/16 09:00 Blood Pressure 113/85 05/19/16 09:00 O2 Sat by Pulse Oximetry (%) 99 05/19/16 11:20 Constitutional: Yes: Calm Eyes: Yes: WNL HENT: Yes: WNL Neck: Yes: WNL Cardiovascular: Yes: Regular Rate and Rhythm Respiratory: Yes: Regular Gastrointestinal: Yes: Soft ...Rectal Exam: Yes: Deferred Genitourinary: No: Anuria Breast(s): Yes: WNL Musculoskeletal: Yes: Muscle Weakness Extremities: Yes: Cool Edema: No Peripheral Pulses WNL: Yes Neurological: Yes: Alert, Oriented, Weakness Psychiatric: Yes: Other (anxeity/depression) Labs: CBC, BMP 05/18/16 10:00 05/18/16 10:00 INR, PTT INR 1.44 (0.82-1.09) H 05/11/16 09:02 Problem List - Problems (1) COPD (chronic obstructive pulmonary disease) Assessment/Plan: bronchodilators: pt feels better with treatments. Steroids and O2 per schedule hanger. Code(s): J44.9 - CHRONIC OBSTRUCTIVE PULMONARY DISEASE, UNSPECIFIED Qualifiers : COPD type: unspecified COPD Qualified Code(s): J44.9 - Chronic obstructive pulmonary disease, unspecified (2) A-fib Assessment/Plan: Telemetry: AF; HR 100-130s at rest. No chest pain, dyspnea, palpitations. Pt is anxious thinking about where she will go on discharge from hospital. Pt received PRBCs yesterday for low Hb; f/u level. Periods of sinus tachycardia, AF with RVR when agitated during HD last week. Staying calm is difficult for her during HD sessions, even when given benzodiazepine and coached in deep breathing and relaxation techniques. On apixaban for AC; on ASA (hx CAD). Qualifiers: Atrial fibrillation type: unspecified Qualified Code(s): I48.91 - Unspecified atrial fibrillation (3) Acute on chronic systolic and diastolic heart failure, NYHA class 3 Assessment/Plan: On losartan and metoprolol ER. Undergoing HD. Code(s): I50.43 - ACUTE ON CHRONIC COMBINED SYSTOLIC AND DIASTOLIC HRT FAIL (4) Bleeding from dialysis shunt Assessment/Plan: F/u with vascular surgeon. On apixaban and ASA. Code(s): T82.838A - HEMORRHAGE DUE TO VASCULAR PROSTH DEV/GRFT, INIT Qualifiers: Encounter type: initial encounter Qualified Code(s): T82.838A - Hemorrhage of vascular prosthetic devices, implants and grafts, initial encounter (5) ESRD (end stage renal disease) on dialysis Assessment/Plan: For HD in am. (6) HTN (hypertension) Assessment/Plan: On losartan and metoprolol ER. Code(s): I10 - ESSENTIAL (PRIMARY) HYPERTENSION Qualifiers: Hypertension type: essential hypertension Qualified Code(s): I10 - Essential (primary) hypertension (7) Hyperlipidemia Assessment/Plan: on statin; LDL cholesterol < 70mg/dL. Code(s): E78.5 - HYPERLIPIDEMIA, UNSPECIFIED (8) Palpitations Code(s): R00.2 - PALPITATIONS (9) Shortness of breath Code(s): R06.02 - SHORTNESS OF BREATH (10) Status post coronary artery stent placement Assessment/Plan: s/p coronary stents 09/18. On ASA and apixaban. Code(s): Z95.5 - PRESENCE OF CORONARY ANGIOPLASTY IMPLANT AND GRAFT (11) Panic anxiety syndrome Code(s): F41.0 - PANIC DISORDER WITHOUT AGORAPHOBIA (12) Defibrillator discharge Assessment/Plan: ICD algorhythm adjusted. Metoprolol ER increased from 37.5 to 50 mg daily; F/u HR and BP. F/u electrolytes (K+ 5.9 prior to HD 05/11/16; normal presently). Code(s): Z45.02 - ENCNTR FOR ADJUST AND MGMT OF AUTOMATIC IMPLNTBL CARD DEFIB
--- NOTE | 2016-05-19 15:04 | PN ---
Progress Note, Physician History of Present Illness: patient stable no new issues - Current Medication List Current Medications: Active Medications Albuterol/Ipratropium (Duoneb -) 1 amp NEB Q4H PRN PRN Reason: SHORTNESS OF BREATH Last Admin: 05/19/16 11:20 Dose: 1 amp Apixaban (Eliquis -) 2.5 mg PO BID [facility] Last Admin: 05/19/16 09:09 Dose: 2.5 mg Aspirin (Asa -) 81 mg PO DAILY [facility] Last Admin: 05/19/16 09:09 Dose: 81 mg Guaifenesin/Codeine Phosphate (Robitussin Ac -) 10 ml PO Q8H PRN PRN Reason: COUGH Last Admin: 05/19/16 09:09 Dose: 10 ml Piperacillin Sod/Tazobactam Sod (Zosyn 2.25gm Ivpb (Pre-Docked)) 50 mls @ 100 mls/hr IVPB Q8H-IV [facility]ED Last Admin: 05/19/16 09:09 Dose: 100 mls/hr Lorazepam (Ativan -) 1 mg PO TID PRN PRN Reason: ANXIETY Last Admin: 05/18/16 21:15 Dose: 1 mg Losartan Potassium (Cozaar -) 25 mg PO DAILY [facility] Last Admin: 05/19/16 09:16 Dose: 25 mg Metoprolol Succinate (Toprol Xl -) 50 mg PO DAILY [facility] Last Admin: 05/19/16 09:09 Dose: 50 mg Metoprolol Tartrate (Lopressor Injection -) 2.5 mg IVPUSH Q4H PRN PRN Reason: HR >/= 130 Last Admin: 05/14/16 01:02 Dose: 2.5 mg Pantoprazole Sodium (Protonix -) 40 mg PO DAILY [facility] Last Admin: 05/19/16 09:09 Dose: 40 mg Prednisone (Deltasone -) 20 mg PO BID [facility] Last Admin: 05/19/16 09:09 Dose: 20 mg Rosuvastatin Calcium (Crestor -) 5 mg PO HS [facility] Last Admin: 05/18/16 21:15 Dose: 5 mg Sevelamer Carbonate (Renvela -) 800 mg PO TIDCM [facility] Last Admin: 05/19/16 12:32 Dose: 800 mg - Objective Vital Signs: Vital Signs Temperature 97.8 F 05/19/16 09:00 Pulse Rate 83 05/19/16 11:20 Respiratory Rate 18 05/19/16 09:00 Blood Pressure 113/85 05/19/16 09:00 O2 Sat by Pulse Oximetry (%) 99 05/19/16 11:20 Constitutional: Yes: No Distress, Calm Cardiovascular: Yes: Regular Rate and Rhythm Respiratory: Yes: Regular, Rhonchi Gastrointestinal: Yes: Normal Bowel Sounds, Soft Musculoskeletal: Yes: WNL Extremities: Yes: WNL Neurological: Yes: Alert, Oriented Psychiatric: Yes: Alert, Oriented Labs: CBC, BMP 05/18/16 10:00 05/18/16 10:00 INR, PTT INR 1.44 (0.82-1.09) H 05/11/16 09:02 Assessment/Plan patient evaluated and findings noted,patient is an immunocompromised patient patient is showing infiltrate in the lung which i think is pneumonia as she also ahs greenish sputum production Problem List - Problems (1) COPD (chronic obstructive pulmonary disease) Code(s): J44.9 - CHRONIC OBSTRUCTIVE PULMONARY DISEASE, UNSPECIFIED Qualifiers : COPD type: unspecified COPD Qualified Code(s): J44.9 - Chronic obstructive pulmonary disease, unspecified (2) A-fib Qualifiers: Atrial fibrillation type: unspecified Qualified Code(s): I48.91 - Unspecified atrial fibrillation (3) Acute on chronic systolic and diastolic heart failure, NYHA class 3 Code(s): I50.43 - ACUTE ON CHRONIC COMBINED SYSTOLIC AND DIASTOLIC HRT FAIL (4) Bleeding from dialysis shunt Code(s): T82.838A - HEMORRHAGE DUE TO VASCULAR PROSTH DEV/GRFT, INIT Qualifiers: Encounter type: initial encounter Qualified Code(s): T82.838A - Hemorrhage of vascular prosthetic devices, implants and grafts, initial encounter (5) Cough Code(s): R05 - COUGH (8) HTN (hypertension) Code(s): I10 - ESSENTIAL (PRIMARY) HYPERTENSION Qualifiers: Hypertension type: essential hypertension Qualified Code(s): I10 - Essential (primary) hypertension (9) Hyperlipidemia Code(s): E78.5 - HYPERLIPIDEMIA, UNSPECIFIED (10) Palpitations Code(s): R00.2 - PALPITATIONS (11) Paroxysmal atrial fibrillation Code(s): I48.0 - PAROXYSMAL ATRIAL FIBRILLATION (12) Shortness of breath Code(s): R06.02 - SHORTNESS OF BREATH (13) Anxiety and depression Code(s): F41.9 - ANXIETY DISORDER, UNSPECIFIED F32.9 - MAJOR DEPRESSIVE DISORDER, SINGLE EPISODE, UNSPECIFIED (14) Status post coronary artery stent placement Code(s): Z95.5 - PRESENCE OF CORONARY ANGIOPLASTY IMPLANT AND GRAFT (15) Panic anxiety syndrome Code(s): F41.0 - PANIC DISORDER WITHOUT AGORAPHOBIA pneumonia bacteremia gm positive patient is now growing in blood vre efecium patient needs to be very carefully watched plan will stop vanco and zosyn will start patient on daptomycin will order echo rest as per primary
--- NOTE | 2016-05-19 15:05 | PN ---
Progress Note, Physician History of Present Illness: Pt seen and examined at bedside. She is awake and alert. She still complains of shortness of breath. - Current Medication List Current Medications: Active Medications Albuterol/Ipratropium (Duoneb -) 1 amp NEB Q4H PRN PRN Reason: SHORTNESS OF BREATH Last Admin: 05/19/16 11:20 Dose: 1 amp Apixaban (Eliquis -) 2.5 mg PO BID [facility] Last Admin: 05/19/16 09:09 Dose: 2.5 mg Aspirin (Asa -) 81 mg PO DAILY [facility] Last Admin: 05/19/16 09:09 Dose: 81 mg Guaifenesin/Codeine Phosphate (Robitussin Ac -) 10 ml PO Q8H PRN PRN Reason: COUGH Last Admin: 05/19/16 09:09 Dose: 10 ml Piperacillin Sod/Tazobactam Sod (Zosyn 2.25gm Ivpb (Pre-Docked)) 50 mls @ 100 mls/hr IVPB Q8H-IV [facility]ED Last Admin: 05/19/16 09:09 Dose: 100 mls/hr Lorazepam (Ativan -) 1 mg PO TID PRN PRN Reason: ANXIETY Last Admin: 05/18/16 21:15 Dose: 1 mg Losartan Potassium (Cozaar -) 25 mg PO DAILY [facility] Last Admin: 05/19/16 09:16 Dose: 25 mg Metoprolol Succinate (Toprol Xl -) 50 mg PO DAILY [facility] Last Admin: 05/19/16 09:09 Dose: 50 mg Metoprolol Tartrate (Lopressor Injection -) 2.5 mg IVPUSH Q4H PRN PRN Reason: HR >/= 130 Last Admin: 05/14/16 01:02 Dose: 2.5 mg Pantoprazole Sodium (Protonix -) 40 mg PO DAILY [facility] Last Admin: 05/19/16 09:09 Dose: 40 mg Prednisone (Deltasone -) 20 mg PO BID [facility] Last Admin: 05/19/16 09:09 Dose: 20 mg Rosuvastatin Calcium (Crestor -) 5 mg PO HS [facility] Last Admin: 05/18/16 21:15 Dose: 5 mg Sevelamer Carbonate (Renvela -) 800 mg PO TIDCM [facility] Last Admin: 05/19/16 12:32 Dose: 800 mg - Objective Vital Signs: Vital Signs Temperature 97.8 F 05/19/16 09:00 Pulse Rate 83 05/19/16 11:20 Respiratory Rate 18 05/19/16 09:00 Blood Pressure 113/85 05/19/16 09:00 O2 Sat by Pulse Oximetry (%) 99 05/19/16 11:20 Constitutional: Yes: Calm Eyes: Yes: Conjunctiva Clear HENT: Yes: Atraumatic Cardiovascular: Yes: Pulse Irregular, S1, S2 Respiratory: Yes: On Nasal O2, Wheezes Gastrointestinal: Yes: Soft Genitourinary: Yes: WNL Musculoskeletal: Yes: Muscle Weakness Edema: No Neurological: Yes: Oriented Psychiatric: Yes: Oriented Labs: CBC, BMP 05/18/16 10:00 05/18/16 10:00 INR, PTT INR 1.44 (0.82-1.09) H 05/11/16 09:02 Problem List - Problems (1) Defibrillator discharge Code(s): Z45.02 - ENCNTR FOR ADJUST AND MGMT OF AUTOMATIC IMPLNTBL CARD DEFIB (2) ESRD needing dialysis Code(s): N18.6 - END STAGE RENAL DISEASE (3) Panic anxiety syndrome Code(s): F41.0 - PANIC DISORDER WITHOUT AGORAPHOBIA (4) Pneumonia Code(s): J18.9 - PNEUMONIA, UNSPECIFIED ORGANISM Qualifiers: Qualified Code(s): J18.9 - Pneumonia, unspecified organism (5) COPD (chronic obstructive pulmonary disease) Code(s): J44.9 - CHRONIC OBSTRUCTIVE PULMONARY DISEASE, UNSPECIFIED Qualifiers : Qualified Code(s): J44.9 - Chronic obstructive pulmonary disease, unspecified (6) A-fib Qualifiers: Qualified Code(s): I48.91 - Unspecified atrial fibrillation (7) CHF (congestive heart failure) Code(s): I50.9 - HEART FAILURE, UNSPECIFIED Qualifiers: Qualified Code(s): I50.9 - Heart failure, unspecified (8) Cough Code(s): R05 - COUGH Assessment/Plan Current Medications Generic Name Dose Route Start Last Admin Trade Name Freq PRN Reason Stop Dose Admin Albuterol/Ipratropium 1 amp 05/17/16 19:08 05/19/16 11:20 Duoneb - NEB 1 amp Q4H PRN Administration SHORTNESS OF BREATH Apixaban 2.5 mg 05/11/16 22:00 05/19/16 09:09 Eliquis - PO 2.5 mg BID [facility] Administration Aspirin 81 mg 05/12/16 10:00 05/19/16 09:09 Asa - PO 81 mg DAILY [facility] Administration Guaifenesin/Codeine Phosphate 10 ml 05/17/16 16:07 05/19/16 09:09 Robitussin Ac - PO 10 ml Q8H PRN Administration COUGH Piperacillin Sod/Tazobactam Sod 50 mls @ 100 mls/hr 05/12/16 15:45 05/19/16 09: 09 Zosyn 2.25gm Ivpb (Pre-Docked) IVPB 100 mls/hr Q8H-IV OBED Administration Lorazepam 1 mg 05/18/16 14:53 05/18/16 21:15 Ativan - PO 1 mg TID PRN Administration ANXIETY Losartan Potassium 25 mg 05/12/16 10:00 05/19/16 09:16 Cozaar - PO 25 mg DAILY [facility] Administration Metoprolol Succinate 50 mg 05/12/16 10:00 05/19/16 09:09 Toprol Xl - PO 50 mg DAILY [facility] Administration Metoprolol Tartrate 2.5 mg 05/11/16 22:54 05/14/16 01:02 Lopressor Injection - IVPUSH 2.5 mg Q4H PRN Administration HR >/= 130 Pantoprazole Sodium 40 mg 05/12/16 10:00 05/19/16 09:09 Protonix - PO 40 mg DAILY [facility] Administration Prednisone 20 mg 05/16/16 11:30 05/19/16 09:09 Deltasone - PO 20 mg BID [facility] Administration Rosuvastatin Calcium 5 mg 05/11/16 22:00 05/18/16 21:15 Crestor - PO 5 mg HS [facility] Administration Sevelamer Carbonate 800 mg 05/12/16 08:00 05/19/16 12:32 Renvela - PO 800 mg TIDCM [facility] Administration blood cultures 05/11 neg 05/16 1 of 2 bottles positive 05/18 negative Impression 1. ESRD 2. PNA 3. HTN 4. CHF 5. pleural effusion 6. hypothyroidism 7. hyperlipidemia 8. MVP 9. a-fib Plan - HD in am - ID follow up to comment on the positive blood culture - vascular follow up - cont epogen - transfuse if hg is lower - consider pulmonary evaluation as SOB is persistent - abx per ID - monitor pulse ox - keep on tele - 3 hrs, 1000 heparin, 500 maintenance, permacath, hectorol 2 mcg, aranesp 35 weekly, [address] Zuluaga
[2016-05-19] MEDS: DAPTOMYCIN 350 MG in SODIUM CHLORIDE 50 ML IVPB SCH (16:48)
--- NOTE | 2016-05-19 17:53 | PN ---
Progress Note, Physician History of Present Illness: feeling better - Current Medication List Current Medications: Active Medications Albuterol/Ipratropium (Duoneb -) 1 amp NEB Q4H PRN PRN Reason: SHORTNESS OF BREATH Last Admin: 05/19/16 17:29 Dose: 1 amp Apixaban (Eliquis -) 2.5 mg PO BID [facility] Last Admin: 05/19/16 09:09 Dose: 2.5 mg Aspirin (Asa -) 81 mg PO DAILY [facility] Last Admin: 05/19/16 09:09 Dose: 81 mg Epoetin Jose (Epogen -) 7,000 units IVPUSH ONCE ONE Stop: 05/20/16 15:06 Guaifenesin/Codeine Phosphate (Robitussin Ac -) 10 ml PO Q8H PRN PRN Reason: COUGH Last Admin: 05/19/16 09:09 Dose: 10 ml Heparin Sodium (Porcine) (Heparin -) 1,000 unit IVPUSH ONCE ONE Stop: 05/20/16 15:06 Daptomycin 350 mg/ Sodium (Chloride) 50 mls @ 100 mls/hr IVPB [id number] [facility] Last Admin: 05/19/16 16:48 Dose: 100 mls/hr Lorazepam (Ativan -) 1 mg PO TID PRN PRN Reason: ANXIETY Last Admin: 05/18/16 21:15 Dose: 1 mg Losartan Potassium (Cozaar -) 25 mg PO DAILY [facility] Last Admin: 05/19/16 09:16 Dose: 25 mg Metoprolol Succinate (Toprol Xl -) 50 mg PO DAILY [facility] Last Admin: 05/19/16 09:09 Dose: 50 mg Metoprolol Tartrate (Lopressor Injection -) 2.5 mg IVPUSH Q4H PRN PRN Reason: HR >/= 130 Last Admin: 05/14/16 01:02 Dose: 2.5 mg Pantoprazole Sodium (Protonix -) 40 mg PO DAILY [facility] Last Admin: 05/19/16 09:09 Dose: 40 mg Prednisone (Deltasone -) 20 mg PO BID [facility] Last Admin: 05/19/16 09:09 Dose: 20 mg Rosuvastatin Calcium (Crestor -) 5 mg PO HS [facility] Last Admin: 05/18/16 21:15 Dose: 5 mg Sevelamer Carbonate (Renvela -) 800 mg PO TIDCM [facility] Last Admin: 05/19/16 17:42 Dose: 800 mg - Objective Vital Signs: Vital Signs Temperature 98.2 F 05/19/16 14:25 Pulse Rate 117 H 05/19/16 14:25 Respiratory Rate 22 05/19/16 14:25 Blood Pressure 102/44 05/19/16 14:25 O2 Sat by Pulse Oximetry (%) 99 05/19/16 11:20 Constitutional: Yes: No Distress HENT: Yes: Atraumatic Neck: Yes: Supple Cardiovascular: Yes: Regular Rate and Rhythm Respiratory: Yes: CTA Bilaterally, Rhonchi Gastrointestinal: Yes: Normal Bowel Sounds Extremities: Yes: WNL Neurological: Yes: Alert, Oriented Labs: CBC, BMP 05/18/16 10:00 05/18/16 10:00 INR, PTT INR 1.44 (0.82-1.09) H 05/11/16 09:02 Problem List - Problems (1) ESRD needing dialysis Code(s): N18.6 - END STAGE RENAL DISEASE (2) COPD (chronic obstructive pulmonary disease) Code(s): J44.9 - CHRONIC OBSTRUCTIVE PULMONARY DISEASE, UNSPECIFIED Qualifiers : COPD type: unspecified COPD Qualified Code(s): J44.9 - Chronic obstructive pulmonary disease, unspecified (3) A-fib Qualifiers: Atrial fibrillation type: unspecified Qualified Code(s): I48.91 - Unspecified atrial fibrillation (4) Atrial fibrillation with tachycardic ventricular rate Code(s): I48.91 - UNSPECIFIED ATRIAL FIBRILLATION (5) Defibrillator discharge Code(s): Z45.02 - ENCNTR FOR ADJUST AND MGMT OF AUTOMATIC IMPLNTBL CARD DEFIB (6) Pneumonia Code(s): J18.9 - PNEUMONIA, UNSPECIFIED ORGANISM Qualifiers: Pneumonia type: due to unspecified organism Laterality: unspecified laterality Lung location: unspecified part of lung Qualified Code(s): J18.9 - Pneumonia, unspecified organism (7) Acute on chronic systolic and diastolic heart failure, NYHA class 3 Code(s): I50.43 - ACUTE ON CHRONIC COMBINED SYSTOLIC AND DIASTOLIC HRT FAIL Assessment/Plan A/P 1. ESRD ON HD 2. PNA IV ABX BCX...POSITIVE 3. HTN STABLE ON MEDS 4. CHF 5. pleural effusion 6. hypothyroidism 7. hyperlipidemia 8. MVP 9. a-fib CARDIO CONSULT CONTINUE HOME MEDS
[2016-05-19] MEDS: ROSUVASTATIN CA 5 MG TABLET (FP) PO SCH (21:15)
[2016-05-19] MEDS: LORazepam 1 MG TABLET PO PRN (21:16)
[2016-05-20] MEDS: METOPROLOL TARTRATE 5 MG/5 ML VIAL IVPUSH PRN ×2 (01:20→19:42)
[2016-05-20] MEDS: ALBUTEROL SO4 2.5/IPRATROPIUM 0.5 INH SOL 3 ML VIAL.NEB. NEB PRN ×3 (06:14→22:11)
[2016-05-20] MEDS: SEVELAMER CARBONATE 800 MG TAB (FP) PO SCH ×3 (08:00→17:23)
[2016-05-20] MEDS ORDERED: EPOETIN ALFA 3,000 UNIT, EPOETIN ALFA 4,000 UNIT IVPUSH ONE (09:00)
[2016-05-20] MEDS ORDERED: HEPARIN NA (PORCINE) 5,000 UNITS/ML 1ML VIAL IVPUSH ONE (09:00)
[2016-05-20] MEDS: LORazepam 1 MG TABLET PO PRN ×2 (09:14→21:59)
[2016-05-20 10:11] LABS: MCH 31.1 pg (25.7-33.7); MCHC 32.8 g/dl (32.0-36.0); MEAN CELL VOLUME 94.8 fl (80-96); PLATELET COUNT 244 K/MM3 (134-434); RDW 17.1 % (11.6-15.6); WHITE BLOOD COUNT 13.3 K/mm3 (4.0-10.0)
--- NOTE | 2016-05-20 10:25 | PN ---
Progress Note, Physician History of Present Illness: The patient is an 80 year old female, with a significant past medical history of anemia, Afib s/p defibrillator on eliquis, COPD (on home O2 as needed), CHF, HTN, hyperlipidemia, hypothyroidism, ESRD (on dialysis MWF, recent revision on her fistula) and overactive bladder, who presents to the emergency department with shortness of breath since approximately 9PM last night shortly after her defibrillator went off. The patient additionally reports intermittent palpitations and a productive cough. The patient states that she has been coughing up phlegm w/o hemopytsis. The patient reports that she needs to have dialysis today as her most recent dialysis was last Wednesday (05/08/2016). Pt does note that she feels more sob when laying flat, deines any leg swelling. The patient denies any chest pain prior to coming to the ED, but endorsed some CP after initial evaluation. The patient denies fever, chills, nausea, vomiting, diarrhea or melena/bpr. PMH ASHD drug eluting stent placement in proximal RCA on June 04, 2009. [address] Bradford VALE of mid RCA September 13, 2014 Dr. Etienne ESRD on HD 2015 HTN Hyperlipidemia LBBB Moderate AR NSTEMI August 2014 [employer] right JOSE and EIA September 03, 2014 Dr. Etienne s/p sudden cardiac [place] 2016 Severely reduced systolic function Subcutaneus AICD [employer] 2016 SVT rx with cardizem June 2015 [facility] - Current Medication List Current Medications: Active Medications Albuterol/Ipratropium (Duoneb -) 1 amp NEB Q4H PRN PRN Reason: SHORTNESS OF BREATH Last Admin: 05/20/16 06:14 Dose: 1 amp Apixaban (Eliquis -) 2.5 mg PO BID [facility] Last Admin: 05/19/16 21:15 Dose: 2.5 mg Aspirin (Asa -) 81 mg PO DAILY [facility] Last Admin: 05/19/16 09:09 Dose: 81 mg Guaifenesin/Codeine Phosphate (Robitussin Ac -) 10 ml PO Q8H PRN PRN Reason: COUGH Last Admin: 05/19/16 09:09 Dose: 10 ml Daptomycin 350 mg/ Sodium (Chloride) 50 mls @ 100 mls/hr IVPB MoWeFr@1600 [facility] Last Admin: 05/19/16 16:48 Dose: 100 mls/hr Lorazepam (Ativan -) 1 mg PO TID PRN PRN Reason: ANXIETY Last Admin: 05/20/16 09:14 Dose: 1 mg Losartan Potassium (Cozaar -) 25 mg PO DAILY [facility] Last Admin: 05/19/16 09:16 Dose: 25 mg Metoprolol Succinate (Toprol Xl -) 50 mg PO DAILY [facility] Last Admin: 05/19/16 09:09 Dose: 50 mg Metoprolol Tartrate (Lopressor Injection -) 2.5 mg IVPUSH Q4H PRN PRN Reason: HR >/= 130 Last Admin: 05/20/16 01:20 Dose: 2.5 mg Pantoprazole Sodium (Protonix -) 40 mg PO DAILY [facility] Last Admin: 05/19/16 09:09 Dose: 40 mg Prednisone (Deltasone -) 20 mg PO BID [facility] Last Admin: 05/19/16 21:15 Dose: 20 mg Rosuvastatin Calcium (Crestor -) 5 mg PO HS [facility] Last Admin: 05/19/16 21:15 Dose: 5 mg Sevelamer Carbonate (Renvela -) 800 mg PO TIDCM [facility] Last Admin: 05/19/16 17:42 Dose: 800 mg - Objective Vital Signs: Vital Signs Temperature 97.5 F L 05/20/16 06:00 Pulse Rate 81 05/20/16 09:24 Respiratory Rate 20 05/20/16 06:00 Blood Pressure 103/56 05/20/16 06:00 O2 Sat by Pulse Oximetry (%) 98 05/20/16 09:24 Eyes: Yes: WNL, Conjunctiva Clear, EOM Intact HENT: Yes: WNL, Atraumatic, Normocephalic Neck: Yes: WNL, Supple, Trachea Midline Cardiovascular: Yes: WNL, Regular Rate and Rhythm Respiratory: Yes: WNL, Regular, CTA Bilaterally Gastrointestinal: Yes: WNL, Normal Bowel Sounds Genitourinary: Yes: WNL Musculoskeletal: Yes: WNL Extremities: Yes: WNL Edema: No Integumentary: Yes: WNL Neurological: Yes: WNL, Alert, Oriented ...Motor Strength: WNL Psychiatric: Yes: WNL Labs: CBC, BMP 05/20/16 09:30 05/18/16 10:00 INR, PTT INR 1.44 (0.82-1.09) H 05/11/16 09:02 Problem List - Problems (1) A-fib Qualifiers: Atrial fibrillation type: unspecified Qualified Code(s): I48.91 - Unspecified atrial fibrillation (2) Acute on chronic systolic and diastolic heart failure, NYHA class 3 Code(s): I50.43 - ACUTE ON CHRONIC COMBINED SYSTOLIC AND DIASTOLIC HRT FAIL (3) Anxiety Code(s): F41.9 - ANXIETY DISORDER, UNSPECIFIED (4) Atrial fibrillation with tachycardic ventricular rate Code(s): I48.91 - UNSPECIFIED ATRIAL FIBRILLATION (5) Bleeding from dialysis shunt Code(s): T82.838A - HEMORRHAGE DUE TO VASCULAR PROSTH DEV/GRFT, INIT Qualifiers: Encounter type: initial encounter Qualified Code(s): T82.838A - Hemorrhage of vascular prosthetic devices, implants and grafts, initial encounter (6) CHF (congestive heart failure) Code(s): I50.9 - HEART FAILURE, UNSPECIFIED Qualifiers: Congestive heart failure type: unspecified congestive heart failure type Congestive heart failure chronicity: unspecified congestive heart failure chronicity Qualified Code(s): I50.9 - Heart failure, unspecified (7) Chest pain Code(s): R07.9 - CHEST PAIN, UNSPECIFIED Qualifiers: Chest pain type: unspecified Qualified Code(s): R07.9 - Chest pain, unspecified (9) Cough Code(s): R05 - COUGH (10) DVT prophylaxis Code(s): [id number] - (12) ESRD needing dialysis Code(s): N18.6 - END STAGE RENAL DISEASE (13) Fever Code(s): R50.9 - FEVER, UNSPECIFIED Qualifiers: Fever type: unspecified Qualified Code(s): R50.9 - Fever, unspecified (14) HTN (hypertension) Code(s): I10 - ESSENTIAL (PRIMARY) HYPERTENSION Qualifiers: Hypertension type: essential hypertension Qualified Code(s): I10 - Essential (primary) hypertension (15) Hyperlipidemia Code(s): E78.5 - HYPERLIPIDEMIA, UNSPECIFIED (16) Hypokalemia Code(s): E87.6 - HYPOKALEMIA (17) Palpitations Code(s): R00.2 - PALPITATIONS (18) Pneumonia Code(s): J18.9 - PNEUMONIA, UNSPECIFIED ORGANISM Qualifiers: Pneumonia type: due to unspecified organism Laterality: unspecified laterality Lung location: unspecified part of lung Qualified Code(s): J18.9 - Pneumonia, unspecified organism (19) Shortness of breath Code(s): R06.02 - SHORTNESS OF BREATH (20) Steal syndrome as complication of dialysis access Code(s): T82.898A - OTH COMPLICATION OF VASCULAR PROSTH DEV/GRFT, INIT Qualifiers: Encounter type: initial encounter Qualified Code(s): T82.898A - Other specified complication of vascular prosthetic devices, implants and grafts , initial encounter (21) Torsades de pointes Code(s): I47.2 - VENTRICULAR TACHYCARDIA (22) Ventricular fibrillation Code(s): I49.01 - VENTRICULAR FIBRILLATION (23) Volume overload Code(s): E87.70 - FLUID OVERLOAD, UNSPECIFIED Qualifiers: Hypervolemia type: unspecified Qualified Code(s): E87.70 - Fluid overload, unspecified (24) Anemia Code(s): D64.9 - ANEMIA, UNSPECIFIED (25) Aortic dissection Code(s): I71.00 - DISSECTION OF UNSPECIFIED SITE OF AORTA (26) CAD (coronary artery disease) Code(s): I25.10 - ATHSCL HEART DISEASE OF [place] CORONARY ARTERY W/O ANG PCTRS Qualifiers: (27) COPD (chronic obstructive pulmonary disease) Code(s): J44.9 - CHRONIC OBSTRUCTIVE PULMONARY DISEASE, UNSPECIFIED Qualifiers : COPD type: unspecified COPD Qualified Code(s): J44.9 - Chronic obstructive pulmonary disease, unspecified (28) Cholelithiasis Code(s): K80.20 - CALCULUS OF GALLBLADDER W/O CHOLECYSTITIS W/O OBSTRUCTION (29) Chronic systolic (congestive) heart failure Code(s): I50.22 - CHRONIC SYSTOLIC (CONGESTIVE) HEART FAILURE (30) ESRD (end stage renal disease) Code(s): N18.6 - END STAGE RENAL DISEASE (31) Hypertriglyceridemia Code(s): E78.1 - PURE HYPERGLYCERIDEMIA (32) Status post coronary artery stent placement Code(s): Z95.5 - PRESENCE OF CORONARY ANGIOPLASTY IMPLANT AND GRAFT (33) Thyroid disorder Code(s): E07.9 - DISORDER OF THYROID, UNSPECIFIED Assessment/Plan - Problems (- Problems (1) COPD (chronic obstructive pulmonary disease) Assessment/Plan: bronchodilators: pt feels better with treatments. Steroids and O2 per machine shop specialist. Code(s): J44.9 - CHRONIC OBSTRUCTIVE PULMONARY DISEASE, UNSPECIFIED Qualifiers : COPD type: unspecified COPD Qualified Code(s): J44.9 - Chronic obstructive pulmonary disease, unspecified (2) A-fib Assessment/Plan: Telemetry: AF; HR 100-130s at rest. No chest pain, dyspnea, palpitations. Pt is anxious thinking about where she will go on discharge from hospital. Pt received PRBCs yesterday for low Hb; f/u level. Periods of sinus tachycardia, AF with RVR when agitated during HD last week. Staying calm is difficult for her during HD sessions, even when given benzodiazepine and coached in deep breathing and relaxation techniques. On apixaban for AC; on ASA (hx CAD). Qualifiers: Atrial fibrillation type: unspecified Qualified Code(s): I48.91 - Unspecified atrial fibrillation (3) Acute on chronic systolic and diastolic heart failure, NYHA class 3 Assessment/Plan: On losartan and metoprolol ER. Undergoing HD. Code(s): I50.43 - ACUTE ON CHRONIC COMBINED SYSTOLIC AND DIASTOLIC HRT FAIL (4) Bleeding from dialysis shunt Assessment/Plan: F/u with vascular surgeon. On apixaban and ASA. Code(s): T82.838A - HEMORRHAGE DUE TO VASCULAR PROSTH DEV/GRFT, INIT Qualifiers: Encounter type: initial encounter Qualified Code(s): T82.838A - Hemorrhage of vascular prosthetic devices, implants and grafts, initial encounter (5) ESRD (end stage renal disease) on dialysis Assessment/Plan: For HD in am. (6) HTN (hypertension) Assessment/Plan: On losartan and metoprolol ER. Code(s): I10 - ESSENTIAL (PRIMARY) HYPERTENSION Qualifiers: Hypertension type: essential hypertension Qualified Code(s): I10 - Essential (primary) hypertension (7) Hyperlipidemia Assessment/Plan: on statin; LDL cholesterol < 70mg/dL. Code(s): E78.5 - HYPERLIPIDEMIA, UNSPECIFIED (8) Palpitations Code(s): R00.2 - PALPITATIONS (9) Shortness of breath Code(s): R06.02 - SHORTNESS OF BREATH (10) Status post coronary artery stent placement Assessment/Plan: s/p coronary stents 09/18. On ASA and apixaban. Code(s): Z95.5 - PRESENCE OF CORONARY ANGIOPLASTY IMPLANT AND GRAFT (11) Panic anxiety syndrome Code(s): F41.0 - PANIC DISORDER WITHOUT AGORAPHOBIA (12) Defibrillator discharge Assessment/Plan: ICD algorhythm adjusted. Metoprolol ER increased from 37.5 to 50 mg daily; F/u HR and BP. F/u electrolytes (K+ 5.9 prior to HD 05/11/16; normal presently). Code(s): Z45.02 - ENCNTR FOR ADJUST AND MGMT OF AUTOMATIC IMPLNTBL CARD DEFIB
--- NOTE | 2016-05-20 12:17 | PN ---
Progress Note, Physician History of Present Illness: Pt seen and examined at bedside. She is awake and alert. She still complains of shortness of breath. - Current Medication List Current Medications: Active Medications Albuterol/Ipratropium (Duoneb -) 1 amp NEB Q4H PRN PRN Reason: SHORTNESS OF BREATH Last Admin: 05/20/16 06:14 Dose: 1 amp Apixaban (Eliquis -) 2.5 mg PO BID [facility] Last Admin: 05/19/16 21:15 Dose: 2.5 mg Aspirin (Asa -) 81 mg PO DAILY [facility] Last Admin: 05/19/16 09:09 Dose: 81 mg Guaifenesin/Codeine Phosphate (Robitussin Ac -) 10 ml PO Q8H PRN PRN Reason: COUGH Last Admin: 05/19/16 09:09 Dose: 10 ml Daptomycin 350 mg/ Sodium (Chloride) 50 mls @ 100 mls/hr IVPB MoWeFr@1600 [facility] Last Admin: 05/19/16 16:48 Dose: 100 mls/hr Lorazepam (Ativan -) 1 mg PO TID PRN PRN Reason: ANXIETY Last Admin: 05/20/16 09:14 Dose: 1 mg Losartan Potassium (Cozaar -) 25 mg PO DAILY [facility] Last Admin: 05/19/16 09:16 Dose: 25 mg Metoprolol Succinate (Toprol Xl -) 50 mg PO DAILY [facility] Last Admin: 05/19/16 09:09 Dose: 50 mg Metoprolol Tartrate (Lopressor Injection -) 2.5 mg IVPUSH Q4H PRN PRN Reason: HR >/= 130 Last Admin: 05/20/16 01:20 Dose: 2.5 mg Pantoprazole Sodium (Protonix -) 40 mg PO DAILY [facility] Last Admin: 05/19/16 09:09 Dose: 40 mg Prednisone (Deltasone -) 20 mg PO BID [facility] Last Admin: 05/19/16 21:15 Dose: 20 mg Rosuvastatin Calcium (Crestor -) 5 mg PO HS [facility] Last Admin: 05/19/16 21:15 Dose: 5 mg Sevelamer Carbonate (Renvela -) 800 mg PO TIDCM [facility] Last Admin: 05/19/16 17:42 Dose: 800 mg - Objective Vital Signs: Vital Signs Temperature 97.3 F L 05/20/16 09:20 Pulse Rate 61 05/20/16 11:55 Respiratory Rate 18 05/20/16 11:55 Blood Pressure 97/39 05/20/16 11:55 O2 Sat by Pulse Oximetry (%) 98 05/20/16 09:24 Constitutional: Yes: Calm Eyes: Yes: Conjunctiva Clear Cardiovascular: Yes: S1, S2 Respiratory: Yes: On Nasal O2, Wheezes Gastrointestinal: Yes: Soft Genitourinary: Yes: WNL Musculoskeletal: Yes: WNL Edema: No Neurological: Yes: Oriented Psychiatric: Yes: Oriented Labs: CBC, BMP 05/20/16 09:30 05/18/16 10:00 INR, PTT INR 1.44 (0.82-1.09) H 05/11/16 09:02 Problem List - Problems (1) Defibrillator discharge Code(s): Z45.02 - ENCNTR FOR ADJUST AND MGMT OF AUTOMATIC IMPLNTBL CARD DEFIB (2) ESRD needing dialysis Code(s): N18.6 - END STAGE RENAL DISEASE (3) Panic anxiety syndrome Code(s): F41.0 - PANIC DISORDER WITHOUT AGORAPHOBIA (4) Pneumonia Code(s): J18.9 - PNEUMONIA, UNSPECIFIED ORGANISM Qualifiers: Pneumonia type: due to unspecified organism Laterality: unspecified laterality Lung location: unspecified part of lung Qualified Code(s): J18.9 - Pneumonia, unspecified organism (5) COPD (chronic obstructive pulmonary disease) Code(s): J44.9 - CHRONIC OBSTRUCTIVE PULMONARY DISEASE, UNSPECIFIED Qualifiers : COPD type: unspecified COPD Qualified Code(s): J44.9 - Chronic obstructive pulmonary disease, unspecified (6) A-fib Qualifiers: Atrial fibrillation type: unspecified Qualified Code(s): I48.91 - Unspecified atrial fibrillation (7) CHF (congestive heart failure) Code(s): I50.9 - HEART FAILURE, UNSPECIFIED Qualifiers: Congestive heart failure type: unspecified congestive heart failure type Congestive heart failure chronicity: unspecified congestive heart failure chronicity Qualified Code(s): I50.9 - Heart failure, unspecified (8) Cough Code(s): R05 - COUGH Assessment/Plan Current Medications Generic Name Dose Route Start Last Admin Trade Name Freq PRN Reason Stop Dose Admin Albuterol/Ipratropium 1 amp 05/17/16 19:08 05/20/16 06:14 Duoneb - NEB 1 amp Q4H PRN Administration SHORTNESS OF BREATH Apixaban 2.5 mg 05/11/16 22:00 05/19/16 21:15 Eliquis - PO 2.5 mg BID [facility] Administration Aspirin 81 mg 05/12/16 10:00 05/19/16 09:09 Asa - PO 81 mg DAILY [facility] Administration Guaifenesin/Codeine Phosphate 10 ml 05/17/16 16:07 05/19/16 09:09 Robitussin Ac - PO 10 ml Q8H PRN Administration COUGH Daptomycin 350 mg/ Sodium 50 mls @ 100 mls/hr 05/19/16 16:00 05/19/16 16:48 Chloride IVPB 100 mls/hr MoWeFr@1600 [facility] Administration Lorazepam 1 mg 05/18/16 14:53 05/20/16 09:14 Ativan - PO 1 mg TID PRN Administration ANXIETY Losartan Potassium 25 mg 05/12/16 10:00 05/19/16 09:16 Cozaar - PO 25 mg DAILY [facility] Administration Metoprolol Succinate 50 mg 05/12/16 10:00 05/19/16 09:09 Toprol Xl - PO 50 mg DAILY [facility] Administration Metoprolol Tartrate 2.5 mg 05/11/16 22:54 05/20/16 01:20 Lopressor Injection - IVPUSH 2.5 mg Q4H PRN Administration HR >/= 130 Pantoprazole Sodium 40 mg 05/12/16 10:00 05/19/16 09:09 Protonix - PO 40 mg DAILY [facility] Administration Prednisone 20 mg 05/16/16 11:30 05/19/16 21:15 Deltasone - PO 20 mg BID [facility] Administration Rosuvastatin Calcium 5 mg 05/11/16 22:00 05/19/16 21:15 Crestor - PO 5 mg HS [facility] Administration Sevelamer Carbonate 800 mg 05/12/16 08:00 05/19/16 17:42 Renvela - PO 800 mg TIDCM [facility] Administration blood cultures 05/11 neg 05/16 1 of 2 bottles positive 05/18 negative Impression 1. ESRD 2. PNA 3. HTN 4. CHF 5. pleural effusion 6. hypothyroidism 7. hyperlipidemia 8. MVP 9. a-fib Plan - pt is tolerating HD thus far - abx per ID - follow up cultures - hg is improved - follow up vascular evaluation - consider pulmonary evaluation as SOB is persistent - monitor pulse ox - keep on tele - 3 hrs, 1000 heparin, 500 maintenance, permacath, hectorol 2 mcg, aranesp 35 weekly, [address] Zuluaga
[2016-05-20] MEDS: METOPROLOL SUCCINATE 50 MG TAB.SR.24H (FP) PO SCH (13:05)
[2016-05-20] MEDS: LOSARTAN POTASSIUM 25 MG TABLET PO SCH (13:05)
[2016-05-20] MEDS: ASPIRIN 81 MG CHEWABLE TABLETS PO SCH (13:05)
[2016-05-20] MEDS: PANTOPRAZOLE 40 MG TABLET (FP) PO SCH (13:05)
[2016-05-20] MEDS: APIXABAN 2.5 MG TABLET PO SCH ×2 (13:05→21:00)
[2016-05-20] MEDS: predniSONE 20 MG TABLET (UD) PO SCH ×2 (13:05→21:00)
[2016-05-20] MEDS ORDERED: EPOETIN ALFA 2,000 UNITS/1 ML VIAL IVPUSH ONE (15:05)
[2016-05-20] MEDS ORDERED: PT OWN MED DRAWER 7, Y5N ONE (17:17)
[2016-05-20] MEDS: DAPTOMYCIN 350 MG in SODIUM CHLORIDE 50 ML IVPB SCH (17:23)
--- NOTE | 2016-05-20 17:24 | PN ---
Progress Note, Physician History of Present Illness: post dialysis very sob restless - Current Medication List Current Medications: Active Medications Albuterol/Ipratropium (Duoneb -) 1 amp NEB Q4H PRN PRN Reason: SHORTNESS OF BREATH Last Admin: 05/20/16 06:14 Dose: 1 amp Apixaban (Eliquis -) 2.5 mg PO BID [facility] Last Admin: 05/20/16 13:05 Dose: 2.5 mg Aspirin (Asa -) 81 mg PO DAILY [facility] Last Admin: 05/20/16 13:05 Dose: 81 mg Daptomycin 350 mg/ Sodium (Chloride) 50 mls @ 100 mls/hr IVPB MoWeFr@1600 [facility] Last Admin: 05/19/16 16:48 Dose: 100 mls/hr Lorazepam (Ativan -) 1 mg PO TID PRN PRN Reason: ANXIETY Last Admin: 05/20/16 09:14 Dose: 1 mg Losartan Potassium (Cozaar -) 25 mg PO DAILY [facility] Last Admin: 05/20/16 13:05 Dose: 25 mg Metoprolol Succinate (Toprol Xl -) 50 mg PO DAILY [facility] Last Admin: 05/20/16 13:05 Dose: 50 mg Metoprolol Tartrate (Lopressor Injection -) 2.5 mg IVPUSH Q4H PRN PRN Reason: HR >/= 130 Last Admin: 05/20/16 01:20 Dose: 2.5 mg Pantoprazole Sodium (Protonix -) 40 mg PO DAILY [facility] Last Admin: 05/20/16 13:05 Dose: 40 mg Prednisone (Deltasone -) 20 mg PO BID [facility] Last Admin: 05/20/16 13:05 Dose: 20 mg Rosuvastatin Calcium (Crestor -) 5 mg PO HS [facility] Last Admin: 05/19/16 21:15 Dose: 5 mg Sevelamer Carbonate (Renvela -) 800 mg PO TIDCM [facility] Last Admin: 05/20/16 13:04 Dose: 800 mg - Objective Vital Signs: Vital Signs Temperature 97.8 F 05/20/16 14:35 Pulse Rate 110 H 05/20/16 14:35 Respiratory Rate 20 05/20/16 14:35 Blood Pressure 104/45 05/20/16 14:35 O2 Sat by Pulse Oximetry (%) 98 05/20/16 09:24 Constitutional: Yes: Anxious, Moderate Distress Neck: Yes: Supple Cardiovascular: Yes: Tachycardia Respiratory: Yes: Rhonchi, Other (decreased air entry) Gastrointestinal: Yes: Normal Bowel Sounds, Soft Musculoskeletal: Yes: WNL Extremities: Yes: WNL Labs: CBC, BMP 05/20/16 09:30 05/18/16 10:00 INR, PTT INR 1.44 (0.82-1.09) H 05/11/16 09:02 Assessment/Plan patient evaluated and findings noted,patient is an immunocompromised patient patient is showing infiltrate in the lung which i think is pneumonia as she also ahs greenish sputum production Problem List - Problems (1) COPD (chronic obstructive pulmonary disease) Code(s): J44.9 - CHRONIC OBSTRUCTIVE PULMONARY DISEASE, UNSPECIFIED Qualifiers : COPD type: unspecified COPD Qualified Code(s): J44.9 - Chronic obstructive pulmonary disease, unspecified (2) A-fib Qualifiers: Atrial fibrillation type: unspecified Qualified Code(s): I48.91 - Unspecified atrial fibrillation (3) Acute on chronic systolic and diastolic heart failure, NYHA class 3 Code(s): I50.43 - ACUTE ON CHRONIC COMBINED SYSTOLIC AND DIASTOLIC HRT FAIL (4) Bleeding from dialysis shunt Code(s): T82.838A - HEMORRHAGE DUE TO VASCULAR PROSTH DEV/GRFT, INIT Qualifiers: Encounter type: initial encounter Qualified Code(s): T82.838A - Hemorrhage of vascular prosthetic devices, implants and grafts, initial encounter (5) Cough Code(s): R05 - COUGH (8) HTN (hypertension) Code(s): I10 - ESSENTIAL (PRIMARY) HYPERTENSION Qualifiers: Hypertension type: essential hypertension Qualified Code(s): I10 - Essential (primary) hypertension (9) Hyperlipidemia Code(s): E78.5 - HYPERLIPIDEMIA, UNSPECIFIED (10) Palpitations Code(s): R00.2 - PALPITATIONS (11) Paroxysmal atrial fibrillation Code(s): I48.0 - PAROXYSMAL ATRIAL FIBRILLATION (12) Shortness of breath Code(s): R06.02 - SHORTNESS OF BREATH (13) Anxiety and depression Code(s): F41.9 - ANXIETY DISORDER, UNSPECIFIED F32.9 - MAJOR DEPRESSIVE DISORDER, SINGLE EPISODE, UNSPECIFIED (14) Status post coronary artery stent placement Code(s): Z95.5 - PRESENCE OF CORONARY ANGIOPLASTY IMPLANT AND GRAFT (15) Panic anxiety syndrome Code(s): F41.0 - PANIC DISORDER WITHOUT AGORAPHOBIA pneumonia bacteremia gm positive patient is now growing in blood vre efecium patient needs to be very carefully watched plan continue dapto echo result noted continue close monitoring daily labs if patient detoriates then the catheter might need to come out at the moment we will continue watching
--- NOTE | 2016-05-20 20:03 | PN ---
Progress Note, Physician History of Present Illness: feeling better - Current Medication List Current Medications: Active Medications Albuterol/Ipratropium (Duoneb -) 1 amp NEB Q4H PRN PRN Reason: SHORTNESS OF BREATH Last Admin: 05/20/16 18:15 Dose: 1 amp Apixaban (Eliquis -) 2.5 mg PO BID [facility] Last Admin: 05/20/16 13:05 Dose: 2.5 mg Aspirin (Asa -) 81 mg PO DAILY [facility] Last Admin: 05/20/16 13:05 Dose: 81 mg Daptomycin 350 mg/ Sodium (Chloride) 50 mls @ 100 mls/hr IVPB MoWeFr@1600 [facility] Last Admin: 05/20/16 17:23 Dose: 100 mls/hr Lorazepam (Ativan -) 1 mg PO TID PRN PRN Reason: ANXIETY Last Admin: 05/20/16 09:14 Dose: 1 mg Losartan Potassium (Cozaar -) 25 mg PO DAILY [facility] Last Admin: 05/20/16 13:05 Dose: 25 mg Metoprolol Succinate (Toprol Xl -) 50 mg PO DAILY [facility] Last Admin: 05/20/16 13:05 Dose: 50 mg Metoprolol Tartrate (Lopressor Injection -) 2.5 mg IVPUSH Q4H PRN PRN Reason: HR >/= 130 Last Admin: 05/20/16 19:42 Dose: 2.5 mg Pantoprazole Sodium (Protonix -) 40 mg PO DAILY [facility] Last Admin: 05/20/16 13:05 Dose: 40 mg Prednisone (Deltasone -) 20 mg PO BID [facility] Last Admin: 05/20/16 13:05 Dose: 20 mg Rosuvastatin Calcium (Crestor -) 5 mg PO HS [facility] Last Admin: 05/19/16 21:15 Dose: 5 mg Sevelamer Carbonate (Renvela -) 800 mg PO TIDCM [facility] Last Admin: 05/20/16 17:23 Dose: 800 mg - Objective Vital Signs: Vital Signs Temperature 97.9 F 05/20/16 17:33 Pulse Rate 122 H 05/20/16 17:33 Respiratory Rate 20 05/20/16 17:33 Blood Pressure 107/49 05/20/16 17:33 O2 Sat by Pulse Oximetry (%) 98 05/20/16 09:24 Constitutional: Yes: No Distress HENT: Yes: Atraumatic Neck: Yes: Supple Cardiovascular: Yes: Regular Rate and Rhythm Respiratory: Yes: CTA Bilaterally Gastrointestinal: Yes: Normal Bowel Sounds Extremities: Yes: WNL Neurological: Yes: Alert, Oriented Labs: CBC, BMP 05/20/16 09:30 05/18/16 10:00 INR, PTT INR 1.44 (0.82-1.09) H 05/11/16 09:02 Problem List - Problems (1) ESRD needing dialysis Code(s): N18.6 - END STAGE RENAL DISEASE (2) COPD (chronic obstructive pulmonary disease) Code(s): J44.9 - CHRONIC OBSTRUCTIVE PULMONARY DISEASE, UNSPECIFIED Qualifiers : COPD type: unspecified COPD Qualified Code(s): J44.9 - Chronic obstructive pulmonary disease, unspecified (3) A-fib Qualifiers: Atrial fibrillation type: unspecified Qualified Code(s): I48.91 - Unspecified atrial fibrillation (4) Atrial fibrillation with tachycardic ventricular rate Code(s): I48.91 - UNSPECIFIED ATRIAL FIBRILLATION (5) Defibrillator discharge Code(s): Z45.02 - ENCNTR FOR ADJUST AND MGMT OF AUTOMATIC IMPLNTBL CARD DEFIB (6) Pneumonia Code(s): J18.9 - PNEUMONIA, UNSPECIFIED ORGANISM Qualifiers: Pneumonia type: due to unspecified organism Laterality: unspecified laterality Lung location: unspecified part of lung Qualified Code(s): J18.9 - Pneumonia, unspecified organism (7) Acute on chronic systolic and diastolic heart failure, NYHA class 3 Code(s): I50.43 - ACUTE ON CHRONIC COMBINED SYSTOLIC AND DIASTOLIC HRT FAIL Assessment/Plan A/P 1. ESRD ON HD 2. PNA IV ABX BCX...POSITIVE will get pulmonary consult 3. HTN STABLE ON MEDS 4. CHF 5. pleural effusion 6. hypothyroidism 7. hyperlipidemia 8. MVP 9. a-fib stable
[2016-05-20] MEDS: ROSUVASTATIN CA 5 MG TABLET (FP) PO SCH (21:00)
[2016-05-20] MEDS: guaiFENesin/CODEINE 5 ML UNIT-DOSE CUPS PO PRN (22:00)
[2016-05-21] MEDS: ALBUTEROL SO4 2.5/IPRATROPIUM 0.5 INH SOL 3 ML VIAL.NEB. NEB PRN (04:45)
[2016-05-21] MEDS: METOPROLOL TARTRATE 5 MG/5 ML VIAL IVPUSH PRN (04:48)
--- NOTE | 2016-05-21 08:25 | PN ---
Progress Note, Physician Chief Complaint: Pt A&Ox3;OOB in chair. Denies chest pain; + feels weak, and easily dyspneic; denies palpitations. Anxious; she says "they say I'm doing worse, and I'm not going to get better". History of Present Illness: The patient is an 80 year old white female, with a significant past medical history of anemia, Afib s/p ICD 09/2015 ; on Eliquis, COPD (on home O2 as needed ), systolic (borderline reduced LVEF)/diastolic CHF, HTN, hyperlipidemia, hypothyroidism, ESRD (on dialysis MWF, recent revision on her fistula); anxiety/ depression/panic, and overactive bladder, who presents to the emergency department with shortness of breath since approximately 9PM last night shortly after her defibrillator went off. The patient additionally reports intermittent palpitations and a productive cough that began last . The patient states that she has been coughing up phlegm w/o hemopytsis. The patient reports that she needs to have dialysis today as her most recent dialysis was last Wednesday (05/08/2016). The patient does note that she feels more sob when laying flat, denies any leg swelling. The patient denies any chest pain prior to coming to the ED, but endorsed some CP after initial evaluation. The patient denies fever, chills , nausea, vomiting, diarrhea or melena/bpr. Allergies: None reported. Past Surgical History: Stents x 3, Defibrillator (09/27/2015). Social History: Former smoker (quit 08/2014). Denies alcohol or drug use. PCP: Dr. Swanson Technical Support Manager: Dr. Chris Advisory Intern: Dr. Lopez - Current Medication List Current Medications: Active Medications Albuterol/Ipratropium (Duoneb -) 1 amp NEB Q4H PRN PRN Reason: SHORTNESS OF BREATH Last Admin: 05/21/16 04:45 Dose: 1 amp Apixaban (Eliquis -) 2.5 mg PO BID [facility] Last Admin: 05/20/16 21:00 Dose: 2.5 mg Aspirin (Asa -) 81 mg PO DAILY [facility] Last Admin: 05/20/16 13:05 Dose: 81 mg Guaifenesin/Codeine Phosphate (Robitussin Ac -) 10 ml PO Q8H PRN PRN Reason: COUGH Last Admin: 05/20/16 22:00 Dose: 10 ml Daptomycin 350 mg/ Sodium (Chloride) 50 mls @ 100 mls/hr IVPB MoWeFr@1600 [facility] Last Admin: 05/20/16 17:23 Dose: 100 mls/hr Lorazepam (Ativan -) 1 mg PO TID PRN PRN Reason: ANXIETY Last Admin: 05/20/16 21:59 Dose: 1 mg Losartan Potassium (Cozaar -) 25 mg PO DAILY [facility] Last Admin: 05/20/16 13:05 Dose: 25 mg Metoprolol Succinate (Toprol Xl -) 50 mg PO DAILY [facility] Last Admin: 05/20/16 13:05 Dose: 50 mg Metoprolol Tartrate (Lopressor Injection -) 2.5 mg IVPUSH Q4H PRN PRN Reason: HR >/= 130 Last Admin: 05/21/16 04:48 Dose: 2.5 mg Pantoprazole Sodium (Protonix -) 40 mg PO DAILY [facility] Last Admin: 05/20/16 13:05 Dose: 40 mg Prednisone (Deltasone -) 20 mg PO BID [facility] Last Admin: 05/20/16 21:00 Dose: 20 mg Rosuvastatin Calcium (Crestor -) 5 mg PO HS [facility] Last Admin: 05/20/16 21:00 Dose: 5 mg Sevelamer Carbonate (Renvela -) 800 mg PO TIDCM [facility] Last Admin: 05/20/16 17:23 Dose: 800 mg - Objective Vital Signs: Vital Signs Temperature 97.2 F L 05/21/16 04:30 Pulse Rate 125 H 05/21/16 06:30 Respiratory Rate 22 05/21/16 06:30 Blood Pressure 112/57 05/21/16 06:30 O2 Sat by Pulse Oximetry (%) 98 05/20/16 20:19 Constitutional: Yes: Anxious, Mild Distress Eyes: Yes: WNL HENT: Yes: WNL Neck: Yes: WNL Cardiovascular: Yes: Tachycardia, Pulse Irregular, S1 (varies in intensity) Respiratory: Yes: Diminished Gastrointestinal: Yes: Soft ...Rectal Exam: Yes: Deferred Genitourinary: No: Anuria Breast(s): Yes: WNL Musculoskeletal: Yes: Muscle Weakness Extremities: Yes: Cool Edema: No Peripheral Pulses WNL: No Integumentary: Yes: Venous Stasis Changes Neurological: Yes: Alert, Oriented, Weakness Psychiatric: Yes: Alert, Oriented Labs: CBC, BMP 05/20/16 09:30 05/18/16 10:00 INR, PTT INR 1.44 (0.82-1.09) H 05/11/16 09:02 Problem List - Problems (1) COPD (chronic obstructive pulmonary disease) Assessment/Plan: bronchodilators: pt feels better with treatments. 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 Code(s): J44.9 - CHRONIC OBSTRUCTIVE PULMONARY DISEASE, UNSPECIFIED Qualifiers : COPD type: unspecified COPD Qualified Code(s): J44.9 - Chronic obstructive pulmonary disease, unspecified (2) A-fib Assessment/Plan: Telemetry: AF; HR 120-150s at rest. . Pt is very anxious; it was mentioned to her that emotional stress may exacerbate HR. On apixaban for AC; on ASA (hx CAD). F/u electrolytes. Will load with digoxin, then start 0.125 mg PO q 72 hours. (Once on maintenance , keep level 0.5-1.0). Discussed with pharmacist regarding dosing in this pt, who is on hemodialysis. Continue metoprolol ER; consider increase in dose if rapid HR refractory to addition of digoxin, and if BP allows. Qualifiers: Atrial fibrillation type: unspecified Qualified Code(s): I48.91 - Unspecified atrial fibrillation (3) Acute on chronic systolic and diastolic heart failure, NYHA class 3 Assessment/Plan: On losartan and metoprolol ER. Digoxin started. F/u electrolytes. Code(s): I50.43 - ACUTE ON CHRONIC COMBINED SYSTOLIC AND DIASTOLIC HRT FAIL (4) Bleeding from dialysis shunt Assessment/Plan: F/u with vascular surgeon. On apixaban and ASA. Code(s): T82.838A - HEMORRHAGE DUE TO VASCULAR PROSTH DEV/GRFT, INIT Qualifiers: Encounter type: initial encounter Qualified Code(s): T82.838A - Hemorrhage of vascular prosthetic devices, implants and grafts, initial encounter (6) HTN (hypertension) Code(s): I10 - ESSENTIAL (PRIMARY) HYPERTENSION Qualifiers: Hypertension type: essential hypertension Qualified Code(s): I10 - Essential (primary) hypertension (7) Hyperlipidemia Code(s): E78.5 - HYPERLIPIDEMIA, UNSPECIFIED (8) Palpitations Code(s): R00.2 - PALPITATIONS (9) Shortness of breath Code(s): R06.02 - SHORTNESS OF BREATH (10) Status post coronary artery stent placement Code(s): Z95.5 - PRESENCE OF CORONARY ANGIOPLASTY IMPLANT AND GRAFT (11) Panic anxiety syndrome Code(s): F41.0 - PANIC DISORDER WITHOUT AGORAPHOBIA (12) Defibrillator discharge Code(s): Z45.02 - ENCNTR FOR ADJUST AND MGMT OF AUTOMATIC IMPLNTBL CARD DEFIB
--- NOTE | 2016-05-21 08:49 | PN ---
Progress Note (short form) - Note Progress Note: AV graft in left arm healing well, no swelling, less pain. Meenu out. May use graft for access. I will take Permacath out in a week when I return from vacation.
[2016-05-21] MEDS: SEVELAMER CARBONATE 800 MG TAB (FP) PO SCH ×3 (09:00→17:29)
[2016-05-21] MEDS ORDERED: DIGOXIN 0.5 MG/2 ML AMPUL ONE (09:08)
[2016-05-21] MEDS: DIGOXIN 0.5 MG/2 ML AMPUL IVPUSH SCH ×3 (09:15→21:25)
[2016-05-21] MEDS: PANTOPRAZOLE 40 MG TABLET (FP) PO SCH (10:18)
[2016-05-21] MEDS: predniSONE 20 MG TABLET (UD) PO SCH (10:18)
[2016-05-21] MEDS: ASPIRIN 81 MG CHEWABLE TABLETS PO SCH (10:18)
[2016-05-21] MEDS: METOPROLOL SUCCINATE 50 MG TAB.SR.24H (FP) PO SCH (10:18)
[2016-05-21] MEDS: APIXABAN 2.5 MG TABLET PO SCH ×2 (10:18→21:24)
[2016-05-21] MEDS: LOSARTAN POTASSIUM 25 MG TABLET PO SCH (10:19)
[2016-05-21] MEDS: LORazepam 1 MG TABLET PO PRN ×2 (10:19→21:25)
--- NOTE | 2016-05-21 12:15 | PN ---
Progress Note, Physician History of Present Illness: Pt seen and examined at bedside. She is awake and alert. She denies fevers or chills. She is anxious. - Current Medication List Current Medications: Active Medications Albuterol/Ipratropium (Duoneb -) 1 amp NEB Q4H PRN PRN Reason: SHORTNESS OF BREATH Last Admin: 05/21/16 04:45 Dose: 1 amp Apixaban (Eliquis -) 2.5 mg PO BID [facility] Last Admin: 05/21/16 10:18 Dose: 2.5 mg Aspirin (Asa -) 81 mg PO DAILY [facility] Last Admin: 05/21/16 10:18 Dose: 81 mg Digoxin (Lanoxin Injection -) 0.25 mg IVPUSH Q6H [facility] Stop: 05/22/16 03:16 Last Admin: 05/21/16 09:15 Dose: 0.25 mg Digoxin (Lanoxin -) 0.125 mg PO Q72H [facility] Guaifenesin/Codeine Phosphate (Robitussin Ac -) 10 ml PO Q8H PRN PRN Reason: COUGH Last Admin: 05/20/16 22:00 Dose: 10 ml Daptomycin 350 mg/ Sodium (Chloride) 50 mls @ 100 mls/hr IVPB MoWeFr@1600 [facility] Last Admin: 05/20/16 17:23 Dose: 100 mls/hr Lorazepam (Ativan -) 1 mg PO TID PRN PRN Reason: ANXIETY Last Admin: 05/21/16 10:19 Dose: 1 mg Losartan Potassium (Cozaar -) 25 mg PO DAILY [facility] Last Admin: 05/21/16 10:19 Dose: 25 mg Metoprolol Succinate (Toprol Xl -) 50 mg PO DAILY [facility] Last Admin: 05/21/16 10:18 Dose: 50 mg Metoprolol Tartrate (Lopressor Injection -) 2.5 mg IVPUSH Q4H PRN PRN Reason: HR >/= 130 Last Admin: 05/21/16 04:48 Dose: 2.5 mg Pantoprazole Sodium (Protonix -) 40 mg PO DAILY [facility] Last Admin: 05/21/16 10:18 Dose: 40 mg Prednisone (Deltasone -) 20 mg PO BID [facility] Last Admin: 05/21/16 10:18 Dose: 20 mg Rosuvastatin Calcium (Crestor -) 5 mg PO HS [facility] Last Admin: 05/20/16 21:00 Dose: 5 mg Sevelamer Carbonate (Renvela -) 800 mg PO TIDCM [facility] Last Admin: 05/21/16 09:00 Dose: 800 mg - Objective Vital Signs: Vital Signs Temperature 97.2 F L 05/21/16 04:30 Pulse Rate 152 H 05/21/16 09:15 Respiratory Rate 22 05/21/16 06:30 Blood Pressure 112/57 05/21/16 06:30 O2 Sat by Pulse Oximetry (%) 98 05/20/16 20:19 Constitutional: Yes: Anxious Eyes: Yes: Conjunctiva Clear HENT: Yes: Atraumatic Neck: Yes: Supple Cardiovascular: Yes: S1, S2 Respiratory: Yes: On Nasal O2, Wheezes Gastrointestinal: Yes: Soft Genitourinary: Yes: WNL Extremities: Yes: Other (left arm graft with thrill and bruit) Edema: No Neurological: Yes: Oriented Psychiatric: Yes: Oriented Labs: CBC, BMP 05/20/16 09:30 05/18/16 10:00 INR, PTT INR 1.44 (0.82-1.09) H 05/11/16 09:02 Problem List - Problems (1) Defibrillator discharge Code(s): Z45.02 - ENCNTR FOR ADJUST AND MGMT OF AUTOMATIC IMPLNTBL CARD DEFIB (2) ESRD needing dialysis Code(s): N18.6 - END STAGE RENAL DISEASE (3) Panic anxiety syndrome Code(s): F41.0 - PANIC DISORDER WITHOUT AGORAPHOBIA (4) Pneumonia Code(s): J18.9 - PNEUMONIA, UNSPECIFIED ORGANISM Qualifiers: Pneumonia type: due to unspecified organism Laterality: unspecified laterality Lung location: unspecified part of lung Qualified Code(s): J18.9 - Pneumonia, unspecified organism (5) COPD (chronic obstructive pulmonary disease) Code(s): J44.9 - CHRONIC OBSTRUCTIVE PULMONARY DISEASE, UNSPECIFIED Qualifiers : COPD type: unspecified COPD Qualified Code(s): J44.9 - Chronic obstructive pulmonary disease, unspecified (6) A-fib Qualifiers: Atrial fibrillation type: unspecified Qualified Code(s): I48.91 - Unspecified atrial fibrillation (7) CHF (congestive heart failure) Code(s): I50.9 - HEART FAILURE, UNSPECIFIED Qualifiers: Congestive heart failure type: unspecified congestive heart failure type Congestive heart failure chronicity: unspecified congestive heart failure chronicity Qualified Code(s): I50.9 - Heart failure, unspecified (8) Cough Code(s): R05 - COUGH Assessment/Plan Current Medications Generic Name Dose Route Start Last Admin Trade Name Freq PRN Reason Stop Dose Admin Albuterol/Ipratropium 1 amp 05/17/16 19:08 05/21/16 04:45 Duoneb - NEB 1 amp Q4H PRN Administration SHORTNESS OF BREATH Apixaban 2.5 mg 05/11/16 22:00 05/21/16 10:18 Eliquis - PO 2.5 mg BID [facility] Administration Aspirin 81 mg 05/12/16 10:00 05/21/16 10:18 Asa - PO 81 mg DAILY [facility] Administration Digoxin 0.25 mg 05/21/16 09:15 05/21/16 09:15 Lanoxin Injection - IVPUSH 05/22/16 03:16 0.25 mg Q6H [facility] Administration Digoxin 0.125 mg 05/22/16 10:00 Lanoxin - PO Q72H [facility] Guaifenesin/Codeine Phosphate 10 ml 05/20/16 21:35 05/20/16 22:00 Robitussin Ac - PO 10 ml Q8H PRN Administration COUGH Daptomycin 350 mg/ Sodium 50 mls @ 100 mls/hr 05/19/16 16:00 05/20/16 17:23 Chloride IVPB 100 mls/hr MoWeFr@1600 [facility] Administration Lorazepam 1 mg 05/18/16 14:53 05/21/16 10:19 Ativan - PO 1 mg TID PRN Administration ANXIETY Losartan Potassium 25 mg 05/12/16 10:00 05/21/16 10:19 Cozaar - PO 25 mg DAILY [facility] Administration Metoprolol Succinate 50 mg 05/12/16 10:00 05/21/16 10:18 Toprol Xl - PO 50 mg DAILY [facility] Administration Metoprolol Tartrate 2.5 mg 05/11/16 22:54 05/21/16 04:48 Lopressor Injection - IVPUSH 2.5 mg Q4H PRN Administration HR >/= 130 Pantoprazole Sodium 40 mg 05/12/16 10:00 02/16/17 10:18 Protonix - PO 40 mg DAILY [facility] Administration Prednisone 20 mg 05/16/16 11:30 05/21/16 10:18 Deltasone - PO 20 mg BID [facility] Administration Rosuvastatin Calcium 5 mg 05/11/16 22:00 05/20/16 21:00 Crestor - PO 5 mg HS [facility] Administration Sevelamer Carbonate 800 mg 05/12/16 08:00 05/21/16 09:00 Renvela - PO 800 mg TIDCM [facility] Administration blood cultures 05/11 neg 05/16 1 of 2 bottles positive 05/18 negative to date Impression 1. ESRD 2. PNA 3. HTN 4. CHF 5. pleural effusion 6. hypothyroidism 7. hyperlipidemia 8. MVP 9. a-fib Plan - vascular input appreciated, will start to use the graft with one needle tomorrow - ID input appreciated, cont abx. - if graft working well will remove permacath next week - monitor Hg - called and discussed with primary, will call a pulmonary consult - monitor on tele - follow up cultures - 3 hrs, 1000 heparin, 500 maintenance, permacath, hectorol 2 mcg, aranesp 35 weekly, [address] Zuluaga
--- NOTE | 2016-05-21 16:21 | CON.PULM ---
Consult Consult Specialty:: PULMONARY Referred by:: Dr. Zuluaga Reason for Consultation:: shortness of breath - History of Present Illness Chief Complaint: shortness of breath History of Present Illness: 80yo female with h/o HTN, LV systolic dysfunction, ESRD on HD, atrial fibrillation, hypothyroidism who was admitted with worsening shortness of breath. Found to have VRE bacteremia, work up in progress to determine source. Started on daptomycin by ID service. She states that her breathing still has not improved much since admission, is receiving nebulizer treatments without significant relief. Has been on prednisone 20mg BID starting 05/16. At home, she is maintained on Symbicort and Spiriva with albuterol as needed. Reports chest tightness and wheezing. Her cough is productive of green sputum. No fevers or chills. - History Source History Provided By: Patient, Medical Record Limitations to Obtaining History: Clinical Condition - Past Medical History Cardio/Vascular: Yes: AFIB, CAD, CHF, HTN, OH, Hyperlipdemia Pulmonary: Yes: COPD Renal/: Yes: Renal Failure (on HD), Hemodialysis Psych: Yes: Anxiety, Depression Endocrine: Yes: Hypothyroidism - Past Surgical History Past Surgical History: Yes: AV Fistula/Graft, Stent - Alcohol/Substance Use Hx Alcohol Use: No History of Substance Use: reports: None - Smoking History Smoking history: Former smoker Have you smoked in the past 12 months: No Aproximately how many cigarettes per day: 0 If you are a former smoker, when did you quit?: 2YRS - Social History Usual Living Arrangement: With Significant Other ADL: Independent History of Recent Travel: No Home Medications - Allergies Allergies/Adverse Reactions: Allergies Allergy/AdvReac Type Severity Reaction Status Date / Time No Known Allergies Allergy Verified 05/11/16 09:18 - Home Medications Home Medications: Ambulatory Orders Aspirin [ASA -] 81 mg PO DAILY 09/19/15 Apixaban [Eliquis] 2.5 mg PO BID 11/26/15 Cyanocobalamin/FA/Pyridoxine [Folbee Tablet] 1 each PO DAILY 02/09/16 Calcium Carbonate/Vitamin D3 [Calcium 500 + Vit D Caplet] 500 mg PO BID Lorazepam 0.5 mg PO TID PRN 02/17/16 Losartan Potassium 25 mg PO DAILY 02/17/16 Pantoprazole Sodium [Protonix] 40 mg PO DAILY 02/17/16 Rosuvastatin Calcium [Crestor] 5 mg PO HS 02/17/16 Sevelamer HCl [Renagel] 800 mg PO TID 02/17/16 Metoprolol Succinate [Toprol XL -] 37.5 mg PO DAILY #0 04/02/16 Oxycodone HCl [Roxicodone -] 5 mg PO Q6H #20 tablet MDD 4 05/01/16 Family Disease History - Family Disease History Other Family History: non-contributory Review of Systems - Review of Systems Constitutional: reports: Weakness. denies: Chills, Fever Eyes: denies: Recent Change in Vision HENT: denies: Nasal Congestion, Throat Pain Neck: denies: Stiffness, Tenderness Cardiovascular: reports: Shortness of Breath. denies: Chest Pain, Edema, Palpitations Respiratory: reports: Cough, SOB, SOB on Exertion, Wheezing. denies: Hemoptysis Gastrointestinal: denies: Abdominal Pain, Nausea, Vomiting Genitourinary: denies: Flank Pain Neurological: denies: Dizziness, Headache Physical Exam Vital Sings: Vital Signs Temperature 97.9 F 05/21/16 15:35 Pulse Rate 110 H 05/21/16 15:35 Respiratory Rate 22 05/21/16 15:35 Blood Pressure 115/77 05/21/16 15:35 O2 Sat by Pulse Oximetry (%) 98 05/21/16 09:00 Constitutional: Yes: Anxious Eyes: Yes: Conjunctiva Clear, EOM Intact HENT: Yes: Atraumatic, Normocephalic Neck: Yes: Supple, Trachea Midline Cardiovascular: Yes: Pulse Irregular Respiratory: Yes: Diminished (distant), Poor Air Entry, Rhonchi, Wheezes ...Clubbing: No Gastrointestinal: Yes: Normal Bowel Sounds, Soft. No: Tenderness Edema: No Neurological: Yes: Alert, Oriented Labs: CBC, BMP 05/20/16 09:30 05/18/16 10:00 Imaging - Results Chest X-ray: Report Reviewed, Image Reviewed (cardiomegaly, pulmonary vascular congestion, pleural effusions) Problem List - Problems (1) COPD exacerbation Code(s): J44.1 - CHRONIC OBSTRUCTIVE PULMONARY DISEASE W (ACUTE) EXACERBATION (2) ESRD needing dialysis Code(s): N18.6 - END STAGE RENAL DISEASE (3) A-fib Qualifiers: Atrial fibrillation type: unspecified Qualified Code(s): I48.91 - Unspecified atrial fibrillation (4) Chronic systolic (congestive) heart failure Code(s): I50.22 - CHRONIC SYSTOLIC (CONGESTIVE) HEART FAILURE (5) Pleural effusion Code(s): J90 - PLEURAL EFFUSION, NOT ELSEWHERE CLASSIFIED (6) Bacteremia Code(s): R78.81 - BACTEREMIA Assessment/Plan Acute COPD Exacerbation ESRD on HD VRE Bacteremia LV Systolic Dysfunction Pleural Effusion - will change prednisone to medrol for 48 hrs and reassess - inhaled bronchodilators standing and PRN - O2 to keep SpO2 >90% - once breathing improved, restart symbicort and spiriva - repeat CXR as last CXR on 05/16 showing congestive changes - if congestive changes persists, will discuss with renal further ultrafiltration - antibiotics per ID - rate control - continue anticoagulation Thank you for this consult Joe Bradford MD
[2016-05-21] MEDS: methylPREDNISolone NA SUCC 40 MG/1 ML VIAL IVPB SCH (17:29)
--- NOTE | 2016-05-21 17:56 | PN ---
Progress Note, Physician History of Present Illness: BETTER - Current Medication List Current Medications: Active Medications Albuterol Sulfate (Ventolin 0.083% Nebulizer Soln -) 1 amp NEB Q4H PRN PRN Reason: SHORT OF BREATH/WHEEZING Albuterol/Ipratropium (Duoneb -) 1 amp NEB QIDR [facility] Apixaban (Eliquis -) 2.5 mg PO BID [facility] [place] Last Admin: 05/21/16 10:18 Dose: 2.5 mg Aspirin (Asa -) 81 mg PO DAILY [facility] Last Admin: 05/21/16 10:18 Dose: 81 mg Digoxin (Lanoxin Injection -) 0.25 mg IVPUSH Q6H [facility] [place] Stop: 05/22/16 03:16 Last Admin: 05/21/16 15:32 Dose: 0.25 mg Digoxin (Lanoxin -) 0.125 mg PO Q72H [facility] Epoetin Jose (Epogen -) 7,000 units IVPUSH ONCE ONE Stop: 05/22/16 12:16 Guaifenesin/Codeine Phosphate (Robitussin Ac -) 10 ml PO Q8H PRN PRN Reason: COUGH Last Admin: 05/20/16 22:00 Dose: 10 ml Heparin Sodium (Porcine) (Heparin -) 1,000 unit IVPUSH ONCE ONE Stop: 05/22/16 12:16 Daptomycin 350 mg/ Sodium (Chloride) 50 mls @ 100 mls/hr IVPB MoWeFr@1600 [facility] Last Admin: 05/20/16 17:23 Dose: 100 mls/hr Losartan Potassium (Cozaar -) 25 mg PO DAILY [facility] Last Admin: 05/21/16 10:19 Dose: 25 mg Methylprednisolone Sodium Succinate (Solu-Medrol -) 40 mg IVPB Q8H-IV [facility] Last Admin: 05/21/16 17:29 Dose: 40 mg Metoprolol Succinate (Toprol Xl -) 50 mg PO DAILY [facility] Last Admin: 05/21/16 10:18 Dose: 50 mg Metoprolol Tartrate (Lopressor Injection -) 2.5 mg IVPUSH Q4H PRN PRN Reason: HR >/= 130 Last Admin: 05/21/16 04:48 Dose: 2.5 mg Pantoprazole Sodium (Protonix -) 40 mg PO DAILY [facility] [place] Last Admin: 05/21/16 10:18 Dose: 40 mg Rosuvastatin Calcium (Crestor -) 5 mg PO HS [facility] Last Admin: 05/20/16 21:00 Dose: 5 mg Sevelamer Carbonate (Renvela -) 800 mg PO TIDCM [facility] Last Admin: 05/21/16 17:29 Dose: 800 mg - Objective Vital Signs: Vital Signs Temperature 97.9 F 05/21/16 15:35 Pulse Rate 110 H 05/21/16 15:35 Respiratory Rate 22 05/21/16 15:35 Blood Pressure 115/77 05/21/16 15:35 O2 Sat by Pulse Oximetry (%) 98 05/21/16 09:00 Constitutional: Yes: No Distress HENT: Yes: Atraumatic Neck: Yes: Supple Cardiovascular: Yes: Regular Rate and Rhythm Respiratory: Yes: CTA Bilaterally Gastrointestinal: Yes: Normal Bowel Sounds Extremities: Yes: WNL Neurological: Yes: Alert, Oriented Labs: CBC, BMP 05/20/16 09:30 05/18/16 10:00 INR, PTT INR 1.44 (0.82-1.09) H 05/11/16 09:02 Problem List - Problems (1) ESRD needing dialysis Code(s): N18.6 - END STAGE RENAL DISEASE (2) COPD (chronic obstructive pulmonary disease) Code(s): J44.9 - CHRONIC OBSTRUCTIVE PULMONARY DISEASE, UNSPECIFIED Qualifiers : COPD type: unspecified COPD Qualified Code(s): J44.9 - Chronic obstructive pulmonary disease, unspecified (3) A-fib Qualifiers: Atrial fibrillation type: unspecified Qualified Code(s): I48.91 - Unspecified atrial fibrillation (4) Atrial fibrillation with tachycardic ventricular rate Code(s): I48.91 - UNSPECIFIED ATRIAL FIBRILLATION (5) Defibrillator discharge Code(s): Z45.02 - ENCNTR FOR ADJUST AND MGMT OF AUTOMATIC IMPLNTBL CARD DEFIB (6) Pneumonia Code(s): J18.9 - PNEUMONIA, UNSPECIFIED ORGANISM Qualifiers: Pneumonia type: due to unspecified organism Laterality: unspecified laterality Lung location: unspecified part of lung Qualified Code(s): J18.9 - Pneumonia, unspecified organism (7) Acute on chronic systolic and diastolic heart failure, NYHA class 3 Code(s): I50.43 - ACUTE ON CHRONIC COMBINED SYSTOLIC AND DIASTOLIC HRT FAIL Assessment/Plan Laboratory Tests A/P 1. ESRD ON HD 2. PNA IV ABX BCX...POSITIVE will get pulmonary consult 3. HTN STABLE ON MEDS 4. CHF 5. pleural effusion 6. hypothyroidism 7. hyperlipidemia 8. MVP 9. a-fib stable
--- NOTE | 2016-05-21 18:00 | PN ---
Progress Note, Physician History of Present Illness: patient feeling a little better breathing improving still coughing - Current Medication List Current Medications: Active Medications Albuterol Sulfate (Ventolin 0.083% Nebulizer Soln -) 1 amp NEB Q4H PRN PRN Reason: SHORT OF BREATH/WHEEZING Albuterol/Ipratropium (Duoneb -) 1 amp NEB QIDR [facility] Apixaban (Eliquis -) 2.5 mg PO BID [facility] Last Admin: 05/21/16 10:18 Dose: 2.5 mg Aspirin (Asa -) 81 mg PO DAILY [facility] Last Admin: 05/21/16 10:18 Dose: 81 mg Digoxin (Lanoxin Injection -) 0.25 mg IVPUSH Q6H [facility] Stop: 05/22/16 03:16 Last Admin: 05/21/16 15:32 Dose: 0.25 mg Digoxin (Lanoxin -) 0.125 mg PO Q72H [facility] Epoetin Jose (Epogen -) 7,000 units IVPUSH ONCE ONE Stop: 05/22/16 12:16 Guaifenesin/Codeine Phosphate (Robitussin Ac -) 10 ml PO Q8H PRN PRN Reason: COUGH Last Admin: 05/20/16 22:00 Dose: 10 ml Heparin Sodium (Porcine) (Heparin -) 1,000 unit IVPUSH ONCE ONE Stop: 05/22/16 12:16 Daptomycin 350 mg/ Sodium (Chloride) 50 mls @ 100 mls/hr IVPB MoWeFr@1600 [facility] Last Admin: 05/20/16 17:23 Dose: 100 mls/hr Losartan Potassium (Cozaar -) 25 mg PO DAILY [facility] Last Admin: 05/21/16 10:19 Dose: 25 mg Methylprednisolone Sodium Succinate (Solu-Medrol -) 40 mg IVPB Q8H-IV [facility] Last Admin: 05/21/16 17:29 Dose: 40 mg Metoprolol Succinate (Toprol Xl -) 50 mg PO DAILY [facility] Last Admin: 05/21/16 10:18 Dose: 50 mg Metoprolol Tartrate (Lopressor Injection -) 2.5 mg IVPUSH Q4H PRN PRN Reason: HR >/= 130 Last Admin: 05/21/16 04:48 Dose: 2.5 mg Pantoprazole Sodium (Protonix -) 40 mg PO DAILY [facility] Last Admin: 05/21/16 10:18 Dose: 40 mg Rosuvastatin Calcium (Crestor -) 5 mg PO HS [facility] Last Admin: 05/20/16 21:00 Dose: 5 mg Sevelamer Carbonate (Renvela -) 800 mg PO TIDCM [facility] Last Admin: 05/21/16 17:29 Dose: 800 mg - Objective Vital Signs: Vital Signs Temperature 97.9 F 05/21/16 15:35 Pulse Rate 110 H 05/21/16 15:35 Respiratory Rate 22 05/21/16 15:35 Blood Pressure 115/77 05/21/16 15:35 O2 Sat by Pulse Oximetry (%) 98 05/21/16 09:00 Constitutional: Yes: Calm HENT: Yes: Atraumatic Cardiovascular: Yes: Regular Rate and Rhythm Respiratory: Yes: On Nasal O2, Poor Air Entry, Rhonchi Gastrointestinal: Yes: Normal Bowel Sounds, Soft Musculoskeletal: Yes: WNL Extremities: Yes: WNL Neurological: Yes: Alert, Oriented Psychiatric: Yes: Alert Labs: CBC, BMP 05/20/16 09:30 05/18/16 10:00 INR, PTT INR 1.44 (0.82-1.09) H 05/11/16 09:02 Assessment/Plan patient evaluated and findings noted,patient is an immunocompromised patient patient is showing infiltrate in the lung which i think is pneumonia as she also ahs greenish sputum production Problem List - Problems (1) COPD (chronic obstructive pulmonary disease) Code(s): J44.9 - CHRONIC OBSTRUCTIVE PULMONARY DISEASE, UNSPECIFIED Qualifiers : COPD type: unspecified COPD Qualified Code(s): J44.9 - Chronic obstructive pulmonary disease, unspecified (2) A-fib Qualifiers: Atrial fibrillation type: unspecified Qualified Code(s): I48.91 - Unspecified atrial fibrillation (3) Acute on chronic systolic and diastolic heart failure, NYHA class 3 Code(s): I50.43 - ACUTE ON CHRONIC COMBINED SYSTOLIC AND DIASTOLIC HRT FAIL (4) Bleeding from dialysis shunt Code(s): T82.838A - HEMORRHAGE DUE TO VASCULAR PROSTH DEV/GRFT, INIT Qualifiers: Encounter type: initial encounter Qualified Code(s): T82.838A - Hemorrhage of vascular prosthetic devices, implants and grafts, initial encounter (5) Cough Code(s): R05 - COUGH (8) HTN (hypertension) Code(s): I10 - ESSENTIAL (PRIMARY) HYPERTENSION Qualifiers: Hypertension type: essential hypertension Qualified Code(s): I10 - Essential (primary) hypertension (9) Hyperlipidemia Code(s): E78.5 - HYPERLIPIDEMIA, UNSPECIFIED (10) Palpitations Code(s): R00.2 - PALPITATIONS (11) Paroxysmal atrial fibrillation Code(s): I48.0 - PAROXYSMAL ATRIAL FIBRILLATION (12) Shortness of breath Code(s): R06.02 - SHORTNESS OF BREATH (13) Anxiety and depression Code(s): F41.9 - ANXIETY DISORDER, UNSPECIFIED F32.9 - MAJOR DEPRESSIVE DISORDER, SINGLE EPISODE, UNSPECIFIED (14) Status post coronary artery stent placement Code(s): Z95.5 - PRESENCE OF CORONARY ANGIOPLASTY IMPLANT AND GRAFT (15) Panic anxiety syndrome Code(s): F41.0 - PANIC DISORDER WITHOUT AGORAPHOBIA pneumonia bacteremia gm positive plan continue dapto echo result noted continue close monitoring daily labs patient will need colonoscopy once patient is stable
[2016-05-21] MEDS: ALBUTEROL SO4 2.5/IPRATROPIUM 0.5 INH SOL 3 ML VIAL.NEB. NEB SCH ×2 (18:31→23:25)
[2016-05-21] MEDS: ROSUVASTATIN CA 5 MG TABLET (FP) PO SCH (21:24)
[2016-05-21] MEDS: guaiFENesin/CODEINE 5 ML UNIT-DOSE CUPS PO PRN (21:25)
[2016-05-22] MEDS: DIGOXIN 0.5 MG/2 ML AMPUL IVPUSH SCH (03:04)
[2016-05-22] MEDS: methylPREDNISolone NA SUCC 40 MG/1 ML VIAL IVPB SCH ×3 (03:04→17:56)
[2016-05-22] MEDS: ALBUTEROL SO4 2.5/IPRATROPIUM 0.5 INH SOL 3 ML VIAL.NEB. NEB SCH ×4 (06:17→23:18)
--- NOTE | 2016-05-22 08:31 | PN ---
Progress Note, Physician Chief Complaint: Pt A&Ox3;OOB in chair. No wheezing or dyspnea; no palpitations.Anxious abut hemodialysis today (restarting use of AV graft). History of Present Illness: The patient is an 80 year old white female, with a significant past medical history of anemia, Afib s/p ICD 09/2015 ; on Eliquis, COPD (on home O2 as needed ), systolic (borderline reduced LVEF)/diastolic CHF, HTN, hyperlipidemia, hypothyroidism, ESRD (on dialysis MWF, recent revision on her fistula); anxiety/ depression/panic, and overactive bladder, who presents to the emergency department with shortness of breath since approximately 9PM last night shortly after her defibrillator went off. The patient additionally reports intermittent palpitations and a productive cough that began last weekend. The patient states that she has been coughing up phlegm w/o hemopytsis. The patient reports that she needs to have dialysis today as her most recent dialysis was last Wednesday (05/08/2016). The patient does note that she feels more sob when laying flat, denies any leg swelling. The patient denies any chest pain prior to coming to the ED, but endorsed some CP after initial evaluation. The patient denies fever, chills , nausea, vomiting, diarrhea or melena/bpr. Allergies: None reported. Past Surgical History: Stents x 3, Defibrillator (09/27/2015). Social History: Former smoker (quit 08/2014). Denies alcohol or drug use. PCP: Dr. Swanson Advertising Designer: Dr. Chris Manufacturing Production Manager: Dr. Lopez - Current Medication List Current Medications: Active Medications Albuterol Sulfate (Ventolin 0.083% Nebulizer Soln -) 1 amp NEB Q4H PRN PRN Reason: SHORT OF BREATH/WHEEZING Albuterol/Ipratropium (Duoneb -) 1 amp NEB QIDR [facility] Last Admin: 05/22/16 06:17 Dose: 1 amp Apixaban (Eliquis -) 2.5 mg PO BID [facility] Last Admin: 05/21/16 21:24 Dose: 2.5 mg Aspirin (Asa -) 81 mg PO DAILY [facility] Last Admin: 05/21/16 10:18 Dose: 81 mg Digoxin (Lanoxin -) 0.125 mg PO Q72H [facility] Epoetin Jose (Epogen -) 7,000 units IVPUSH ONCE ONE Stop: 05/22/16 12:16 Guaifenesin/Codeine Phosphate (Robitussin Ac -) 10 ml PO Q8H PRN PRN Reason: COUGH Last Admin: 05/21/16 21:25 Dose: 10 ml Heparin Sodium (Porcine) (Heparin -) 1,000 unit IVPUSH ONCE ONE Stop: 05/22/16 12:16 Daptomycin 350 mg/ Sodium (Chloride) 50 mls @ 100 mls/hr IVPB MoWeFr@1600 [facility] Last Admin: 05/20/16 17:23 Dose: 100 mls/hr Lorazepam (Ativan -) 1 mg PO Q8H PRN PRN Reason: ANXIETY Last Admin: 05/21/16 21:25 Dose: 1 mg Losartan Potassium (Cozaar -) 25 mg PO DAILY [facility] Last Admin: 05/21/16 10:19 Dose: 25 mg Methylprednisolone Sodium Succinate (Solu-Medrol -) 40 mg IVPB Q8H-IV [facility] Last Admin: 05/22/16 03:04 Dose: 40 mg Metoprolol Succinate (Toprol Xl -) 50 mg PO DAILY [facility] Last Admin: 05/21/16 10:18 Dose: 50 mg Metoprolol Tartrate (Lopressor Injection -) 2.5 mg IVPUSH Q4H PRN PRN Reason: HR >/= 130 Last Admin: 05/21/16 04:48 Dose: 2.5 mg Pantoprazole Sodium (Protonix -) 40 mg PO DAILY [facility] Last Admin: 05/21/16 10:18 Dose: 40 mg Rosuvastatin Calcium (Crestor -) 5 mg PO HS [facility] Last Admin: 05/21/16 21:24 Dose: 5 mg Sevelamer Carbonate (Renvela -) 800 mg PO TIDCM [facility] Last Admin: 05/21/16 17:29 Dose: 800 mg - Objective Vital Signs: Vital Signs Temperature 97.8 F 05/22/16 05:51 Pulse Rate 84 05/22/16 05:51 Respiratory Rate 20 05/22/16 05:51 Blood Pressure 120/52 05/22/16 05:51 O2 Sat by Pulse Oximetry (%) 98 05/21/16 20:00 Constitutional: Yes: Anxious Eyes: Yes: WNL HENT: Yes: WNL Neck: Yes: WNL Cardiovascular: Yes: Pulse Irregular Respiratory: Yes: Diminished Gastrointestinal: Yes: Soft ...Rectal Exam: Yes: Deferred Genitourinary: No: Anuria Breast(s): Yes: WNL Musculoskeletal: Yes: Muscle Weakness Extremities: Yes: Cool Edema: No Peripheral Pulses WNL: No Wound/Incision: Yes: Other (LUE AVG healed;) Neurological: Yes: Alert, Oriented, Weakness Psychiatric: Yes: Alert, Oriented Labs: CBC, BMP 05/20/16 09:30 05/18/16 10:00 INR, PTT INR 1.44 (0.82-1.09) H 05/11/16 09:02 Abnormal Lab Results 05/18/16 10:00 Crossmatch See Detail - ....Imaging Other: Image Reviewed (AF; controlled VR) Problem List - Problems (1) COPD (chronic obstructive pulmonary disease) Assessment/Plan: bronchodilators: pt feels better with treatments. Steroids and O2 per e learning specialist. Code(s): J44.9 - CHRONIC OBSTRUCTIVE PULMONARY DISEASE, UNSPECIFIED Qualifiers : COPD type: unspecified COPD Qualified Code(s): J44.9 - Chronic obstructive pulmonary disease, unspecified (2) A-fib Assessment/Plan: Telemetry: AF; HR 120-150s at rest hesterday; now in 80s-100 bpm . On apixaban for AC; on ASA (hx CAD). F/u electrolytes. Will load with digoxin, then start 0.125 mg PO q 72 hours. (Once on maintenance , keep level 0.5-1.0). Discussed with pharmacist regarding dosing in this pt, who is on hemodialysis. Continue metoprolol ER; consider increase in dose if rapid HR refractory to addition of digoxin, and if BP allows. Qualifiers: Atrial fibrillation type: unspecified Qualified Code(s): I48.91 - Unspecified atrial fibrillation (3) Acute on chronic systolic and diastolic heart failure, NYHA class 3 Assessment/Plan: On losartan and metoprolol ER. Digoxin loaded; HR better-controlled now. Keep digoxin level 0.5-1.0. Start 0.125 mg q 72 hours. F/u electrolytes. Code(s): I50.43 - ACUTE ON CHRONIC COMBINED SYSTOLIC AND DIASTOLIC HRT FAIL (4) Bleeding from dialysis shunt Assessment/Plan: F/u with vascular surgeon. On apixaban and ASA. Code(s): T82.838A - HEMORRHAGE DUE TO VASCULAR PROSTH DEV/GRFT, INIT Qualifiers: Encounter type: initial encounter Qualified Code(s): T82.838A - Hemorrhage of vascular prosthetic devices, implants and grafts, initial encounter (5) ESRD (end stage renal disease) on dialysis Assessment/Plan: For HD today. (6) HTN (hypertension) Code(s): I10 - ESSENTIAL (PRIMARY) HYPERTENSION Qualifiers: Hypertension type: essential hypertension Qualified Code(s): I10 - Essential (primary) hypertension (7) Hyperlipidemia Code(s): E78.5 - HYPERLIPIDEMIA, UNSPECIFIED (8) Palpitations Code(s): R00.2 - PALPITATIONS (9) Shortness of breath Code(s): R06.02 - SHORTNESS OF BREATH (10) Status post coronary artery stent placement Code(s): Z95.5 - PRESENCE OF CORONARY ANGIOPLASTY IMPLANT AND GRAFT (11) Panic anxiety syndrome Code(s): F41.0 - PANIC DISORDER WITHOUT AGORAPHOBIA (12) Defibrillator discharge Code(s): Z45.02 - ENCNTR FOR ADJUST AND MGMT OF AUTOMATIC IMPLNTBL CARD DEFIB
[2016-05-22] MEDS: LORazepam 1 MG TABLET PO PRN ×2 (08:54→21:21)
[2016-05-22] MEDS: SEVELAMER CARBONATE 800 MG TAB (FP) PO SCH ×3 (08:54→17:56)
[2016-05-22] MEDS: PANTOPRAZOLE 40 MG TABLET (FP) PO SCH (08:59)
[2016-05-22] MEDS: LOSARTAN POTASSIUM 25 MG TABLET PO SCH ×2 (09:00→15:06)
[2016-05-22] MEDS: ASPIRIN 81 MG CHEWABLE TABLETS PO SCH (09:00)
[2016-05-22] MEDS: APIXABAN 2.5 MG TABLET PO SCH ×3 (09:00→21:21)
[2016-05-22] MEDS: DIGOXIN 0.125 MG TABLET (FP) PO SCH ×2 (09:01→15:07)
[2016-05-22] MEDS: METOPROLOL SUCCINATE 50 MG TAB.SR.24H (FP) PO SCH ×2 (09:01→15:07)
[2016-05-22] MEDS ORDERED: HEPARIN NA (PORCINE) 5,000 UNITS/ML 1ML VIAL IVPUSH ONE (10:45)
[2016-05-22] MEDS ORDERED: EPOETIN ALFA 3,000 UNIT, EPOETIN ALFA 4,000 UNIT IVPUSH ONE (10:45)
[2016-05-22] MEDS ORDERED: EPOETIN ALFA 2,000 UNITS/1 ML VIAL IVPUSH ONE (12:15)
--- NOTE | 2016-05-22 12:24 | PN ---
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
[2016-05-22 12:57] LABS: CALCIUM 8.1 mg/dL (8.5-10.1)
[2016-05-22 13:05] LABS: CREATININE 7.4 mg/dL (0.55-1.02)
--- NOTE | 2016-05-22 13:22 | PN ---
Progress Note, Physician History of Present Illness: Pt seen and examined at bedside. She is tolerating HD so far. She feels her shortness of breath is improving. - Current Medication List Current Medications: Active Medications Albuterol Sulfate (Ventolin 0.083% Nebulizer Soln -) 1 amp NEB Q4H PRN PRN Reason: SHORT OF BREATH/WHEEZING Albuterol/Ipratropium (Duoneb -) 1 amp NEB QIDR [facility] Last Admin: 05/22/16 11:10 Dose: 1 amp Apixaban (Eliquis -) 2.5 mg PO BID [facility] Last Admin: 05/22/16 09:00 Dose: Not Given Aspirin (Asa -) 81 mg PO DAILY [facility] Last Admin: 05/22/16 09:00 Dose: 81 mg Digoxin (Lanoxin -) 0.125 mg PO Q72H [facility] Last Admin: 05/22/16 09:01 Dose: Not Given Guaifenesin/Codeine Phosphate (Robitussin Ac -) 10 ml PO Q8H PRN PRN Reason: COUGH Last Admin: 05/21/16 21:25 Dose: 10 ml Daptomycin 350 mg/ Sodium (Chloride) 50 mls @ 100 mls/hr IVPB MoWeFr@1600 [facility] Last Admin: 05/20/16 17:23 Dose: 100 mls/hr Lorazepam (Ativan -) 1 mg PO Q8H PRN PRN Reason: ANXIETY Last Admin: 05/22/16 08:54 Dose: 1 mg Losartan Potassium (Cozaar -) 25 mg PO DAILY [facility] Last Admin: 05/22/16 09:00 Dose: Not Given Methylprednisolone Sodium Succinate (Solu-Medrol -) 40 mg IVPB Q8H-IV [facility] Last Admin: 05/22/16 08:59 Dose: 40 mg Metoprolol Succinate (Toprol Xl -) 50 mg PO DAILY [facility] Last Admin: 05/22/16 09:01 Dose: Not Given Metoprolol Tartrate (Lopressor Injection -) 2.5 mg IVPUSH Q4H PRN PRN Reason: HR >/= 130 Last Admin: 05/21/16 04:48 Dose: 2.5 mg Pantoprazole Sodium (Protonix -) 40 mg PO DAILY [facility] Last Admin: 05/22/16 08:59 Dose: 40 mg Rosuvastatin Calcium (Crestor -) 5 mg PO HS [facility] Last Admin: 05/21/16 21:24 Dose: 5 mg Sevelamer Carbonate (Renvela -) 800 mg PO TIDCM [facility] Last Admin: 05/22/16 08:54 Dose: 800 mg - Objective Vital Signs: Vital Signs Temperature 98.1 F 05/22/16 09:00 Pulse Rate 73 05/22/16 11:35 Respiratory Rate 18 05/22/16 11:35 Blood Pressure 124/58 05/22/16 11:35 O2 Sat by Pulse Oximetry (%) 98 05/22/16 10:50 Constitutional: Yes: Calm Eyes: Yes: Conjunctiva Clear HENT: Yes: Atraumatic Neck: Yes: Supple Cardiovascular: Yes: S1, S2 Respiratory: Yes: On Nasal O2, Wheezes Gastrointestinal: Yes: Soft Genitourinary: Yes: WNL Musculoskeletal: Yes: WNL Edema: No Neurological: Yes: Oriented Psychiatric: Yes: Oriented Labs: CBC, BMP 05/22/16 11:10 INR, PTT INR 1.44 (0.82-1.09) H 05/11/16 09:02 Problem List - Problems (1) Defibrillator discharge Code(s): Z45.02 - ENCNTR FOR ADJUST AND MGMT OF AUTOMATIC IMPLNTBL CARD DEFIB (2) ESRD needing dialysis Code(s): N18.6 - END STAGE RENAL DISEASE (3) Panic anxiety syndrome Code(s): F41.0 - PANIC DISORDER WITHOUT AGORAPHOBIA (4) Pneumonia Code(s): J18.9 - PNEUMONIA, UNSPECIFIED ORGANISM Qualifiers: Pneumonia type: due to unspecified organism Laterality: unspecified laterality Lung location: unspecified part of lung Qualified Code(s): J18.9 - Pneumonia, unspecified organism (5) COPD (chronic obstructive pulmonary disease) Code(s): J44.9 - CHRONIC OBSTRUCTIVE PULMONARY DISEASE, UNSPECIFIED Qualifiers : COPD type: unspecified COPD Qualified Code(s): J44.9 - Chronic obstructive pulmonary disease, unspecified (6) A-fib Qualifiers: Atrial fibrillation type: unspecified Qualified Code(s): I48.91 - Unspecified atrial fibrillation (7) CHF (congestive heart failure) Code(s): I50.9 - HEART FAILURE, UNSPECIFIED Qualifiers: Congestive heart failure type: unspecified congestive heart failure type Congestive heart failure chronicity: unspecified congestive heart failure chronicity Qualified Code(s): I50.9 - Heart failure, unspecified (8) Cough Code(s): R05 - COUGH Assessment/Plan Current Medications Generic Name Dose Route Start Last Admin Trade Name Freq PRN Reason Stop Dose Admin Albuterol Sulfate 1 amp 05/21/16 16:35 Ventolin 0.083% Nebulizer Soln - NEB Q4H PRN SHORT OF BREATH/WHEEZING Albuterol/Ipratropium 1 amp 05/21/16 18:00 05/22/16 11:10 Duoneb - NEB 1 amp QIDR [facility] Administration Apixaban 2.5 mg 05/11/16 22:00 05/22/16 09:00 Eliquis - PO Not Given BID [facility] Aspirin 81 mg 05/12/16 10:00 05/22/16 09:00 Asa - PO 81 mg DAILY [facility] Administration Digoxin 0.125 mg 05/22/16 10:00 05/22/16 09:01 Lanoxin - PO Not Given Q72H [facility] Guaifenesin/Codeine Phosphate 10 ml 05/20/16 21:35 05/21/16 21:25 Robitussin Ac - PO 10 ml Q8H PRN Administration COUGH Daptomycin 350 mg/ Sodium 50 mls @ 100 mls/hr 05/19/16 16:00 05/20/16 17:23 Chloride IVPB 100 mls/hr MoWeFr@1600 [facility] Administration Lorazepam 1 mg 05/21/16 20:42 05/22/16 08:54 Ativan - PO 1 mg Q8H PRN Administration ANXIETY Losartan Potassium 25 mg 05/12/16 10:00 05/22/16 09:00 Cozaar - PO Not Given DAILY [facility] Methylprednisolone Sodium Succinate 40 mg 05/21/16 18:00 05/22/16 08:59 Solu-Medrol - IVPB 40 mg Q8H-IV [facility] Administration Metoprolol Succinate 50 mg 05/12/16 10:00 05/22/16 09:01 Toprol Xl - PO Not Given DAILY [facility] Metoprolol Tartrate 2.5 mg 05/11/16 22:54 05/21/16 04:48 Lopressor Injection - IVPUSH 2.5 mg Q4H PRN Administration HR >/= 130 Pantoprazole Sodium 40 mg 05/12/16 10:00 05/22/16 08:59 Protonix - PO 40 mg DAILY [facility] Administration Rosuvastatin Calcium 5 mg 05/11/16 22:00 05/21/16 21:24 Crestor - PO 5 mg HS [facility] Administration Sevelamer Carbonate 800 mg 05/12/16 08:00 05/22/16 08:54 Renvela - PO 800 mg TIDCM [facility] Administration blood cultures 05/11 neg 05/16 1 of 2 bottles positive 05/18 negative to date Impression 1. ESRD 2. PNA 3. HTN 4. CHF 5. pleural effusion 6. hypothyroidism 7. hyperlipidemia 8. MVP 9. a-fib Plan - using left arm graft with one needle today - pt is tolerating HD today - will arrange for HD on Wednesday (orders written) - will remove permacath next week if graft is working - discussed with ID, pt will need antibiotics for 10 days - pulmonary input appreciated - monitor on tele - follow up cultures, reviewed daily - 3 hrs, 1000 heparin, 500 maintenance, permacath, hectorol 2 mcg, aranesp 35 weekly, [address] Zuluaga
--- NOTE | 2016-05-22 14:39 | PN ---
Progress Note, Physician History of Present Illness: patient feeling a little better breathing improving cough better - Current Medication List Current Medications: Active Medications Albuterol Sulfate (Ventolin 0.083% Nebulizer Soln -) 1 amp NEB Q4H PRN PRN Reason: SHORT OF BREATH/WHEEZING Albuterol/Ipratropium (Duoneb -) 1 amp NEB QIDR [facility] Last Admin: 05/22/16 11:10 Dose: 1 amp Apixaban (Eliquis -) 2.5 mg PO BID [facility] Last Admin: 05/22/16 09:00 Dose: Not Given Aspirin (Asa -) 81 mg PO DAILY [facility] Last Admin: 05/22/16 09:00 Dose: 81 mg Digoxin (Lanoxin -) 0.125 mg PO Q72H [facility] Last Admin: 05/22/16 09:01 Dose: Not Given Epoetin Jose 6,000 unit/ (Epoetin Jose 2,000 unit) 8,000 unit IVPUSH ONCE ONE Stop: 05/25/16 14:31 Guaifenesin/Codeine Phosphate (Robitussin Ac -) 10 ml PO Q8H PRN PRN Reason: COUGH Last Admin: 05/21/16 21:25 Dose: 10 ml Heparin Sodium (Porcine) (Heparin -) 1,000 unit IVPUSH ONCE ONE Stop: 05/25/16 13:23 Daptomycin 350 mg/ Sodium (Chloride) 50 mls @ 100 mls/hr IVPB MoWeFr@1600 [facility] Last Admin: 05/20/16 17:23 Dose: 100 mls/hr Lorazepam (Ativan -) 1 mg PO Q8H PRN PRN Reason: ANXIETY Last Admin: 05/22/16 08:54 Dose: 1 mg Losartan Potassium (Cozaar -) 25 mg PO DAILY [facility] Last Admin: 05/22/16 09:00 Dose: Not Given Methylprednisolone Sodium Succinate (Solu-Medrol -) 40 mg IVPB Q8H-IV [facility] Last Admin: 05/22/16 08:59 Dose: 40 mg Metoprolol Succinate (Toprol Xl -) 50 mg PO DAILY [facility] Last Admin: 05/22/16 09:01 Dose: Not Given Metoprolol Tartrate (Lopressor Injection -) 2.5 mg IVPUSH Q4H PRN PRN Reason: HR >/= 130 Last Admin: 05/21/16 04:48 Dose: 2.5 mg Pantoprazole Sodium (Protonix -) 40 mg PO DAILY [facility] Last Admin: 05/22/16 08:59 Dose: 40 mg Rosuvastatin Calcium (Crestor -) 5 mg PO HS [facility] Last Admin: 05/21/16 21:24 Dose: 5 mg Sevelamer Carbonate (Renvela -) 800 mg PO TIDCM [facility] Last Admin: 05/22/16 12:00 Dose: Not Given - Objective Vital Signs: Vital Signs Temperature 98.4 F 05/22/16 14:00 Pulse Rate 98 H 05/22/16 14:00 Respiratory Rate 18 05/22/16 14:00 Blood Pressure 132/40 05/22/16 14:00 O2 Sat by Pulse Oximetry (%) 98 05/22/16 10:50 Constitutional: Yes: No Distress, Calm Neck: Yes: Supple, Other (dialysis catheter in place) Cardiovascular: Yes: Regular Rate and Rhythm Respiratory: Yes: Regular, Poor Air Entry, Rhonchi Gastrointestinal: Yes: Normal Bowel Sounds, Soft Musculoskeletal: Yes: WNL Extremities: Yes: WNL Neurological: Yes: Alert, Oriented Psychiatric: Yes: Alert Labs: CBC, BMP 05/22/16 11:10 INR, PTT INR 1.44 (0.82-1.09) H 05/11/16 09:02 Assessment/Plan patient evaluated and findings noted,patient is an immunocompromised patient patient is showing infiltrate in the lung which i think is pneumonia as she also ahs greenish sputum production Problem List - Problems (1) COPD (chronic obstructive pulmonary disease) Code(s): J44.9 - CHRONIC OBSTRUCTIVE PULMONARY DISEASE, UNSPECIFIED Qualifiers : COPD type: unspecified COPD Qualified Code(s): J44.9 - Chronic obstructive pulmonary disease, unspecified (2) A-fib Qualifiers: Atrial fibrillation type: unspecified Qualified Code(s): I48.91 - Unspecified atrial fibrillation (3) Acute on chronic systolic and diastolic heart failure, NYHA class 3 Code(s): I50.43 - ACUTE ON CHRONIC COMBINED SYSTOLIC AND DIASTOLIC HRT FAIL (4) Bleeding from dialysis shunt Code(s): T82.838A - HEMORRHAGE DUE TO VASCULAR PROSTH DEV/GRFT, INIT Qualifiers: Encounter type: initial encounter Qualified Code(s): T82.838A - Hemorrhage of vascular prosthetic devices, implants and grafts, initial encounter (5) Cough Code(s): R05 - COUGH (8) HTN (hypertension) Code(s): I10 - ESSENTIAL (PRIMARY) HYPERTENSION Qualifiers: Hypertension type: essential hypertension Qualified Code(s): I10 - Essential (primary) hypertension (9) Hyperlipidemia Code(s): E78.5 - HYPERLIPIDEMIA, UNSPECIFIED (10) Palpitations Code(s): R00.2 - PALPITATIONS (11) Paroxysmal atrial fibrillation Code(s): I48.0 - PAROXYSMAL ATRIAL FIBRILLATION (12) Shortness of breath Code(s): R06.02 - SHORTNESS OF BREATH (13) Anxiety and depression Code(s): F41.9 - ANXIETY DISORDER, UNSPECIFIED F32.9 - MAJOR DEPRESSIVE DISORDER, SINGLE EPISODE, UNSPECIFIED (14) Status post coronary artery stent placement Code(s): Z95.5 - PRESENCE OF CORONARY ANGIOPLASTY IMPLANT AND GRAFT (15) Panic anxiety syndrome Code(s): F41.0 - PANIC DISORDER WITHOUT AGORAPHOBIA pneumonia bacteremia gm positive plan continue dapto echo result noted continue close monitoring daily labs patient will need colonoscopy once patient is stable plan on wednesday is to dialyse the patient via the graft if that suceeds the catheter needs to come out
[2016-05-22 15:35] LABS: MCH 31.7 pg (25.7-33.7); MCHC 32.5 g/dl (32.0-36.0); MEAN CELL VOLUME 97.7 fl (80-96); MEAN PLT VOLUME 9.5 fl (7.5-11.1); PLATELET COUNT 255 K/MM3 (134-434)
[2016-05-22 16:04] LABS: CREATININE 2.1 mg/dL (0.55-1.02)
[2016-05-22] MEDS: DAPTOMYCIN 350 MG in SODIUM CHLORIDE 50 ML IVPB SCH (16:14)
--- NOTE | 2016-05-22 18:11 | PN ---
Progress Note, Physician History of Present Illness: BETTER - Current Medication List Current Medications: Active Medications Albuterol Sulfate (Ventolin 0.083% Nebulizer Soln -) 1 amp NEB Q4H PRN PRN Reason: SHORT OF BREATH/WHEEZING Albuterol/Ipratropium (Duoneb -) 1 amp NEB QIDR [facility] Last Admin: 05/22/16 11:10 Dose: 1 amp Apixaban (Eliquis -) 2.5 mg PO BID [facility] Last Admin: 05/22/16 15:06 Dose: 2.5 mg Aspirin (Asa -) 81 mg PO DAILY [facility] Last Admin: 05/22/16 09:00 Dose: 81 mg Digoxin (Lanoxin -) 0.125 mg PO Q72H [facility] Last Admin: 05/22/16 15:07 Dose: 0.125 mg Epoetin Jose 6,000 unit/ (Epoetin Jose 2,000 unit) 8,000 unit IVPUSH ONCE ONE Stop: 05/25/16 14:31 Guaifenesin/Codeine Phosphate (Robitussin Ac -) 10 ml PO Q8H PRN PRN Reason: COUGH Last Admin: 05/21/16 21:25 Dose: 10 ml Heparin Sodium (Porcine) (Heparin -) 1,000 unit IVPUSH ONCE ONE Stop: 05/25/16 13:23 Daptomycin 350 mg/ Sodium (Chloride) 50 mls @ 100 mls/hr IVPB MoWeFr@1600 [facility] Last Admin: 05/22/16 16:14 Dose: 100 mls/hr Lorazepam (Ativan -) 1 mg PO Q8H PRN PRN Reason: ANXIETY Last Admin: 05/22/16 08:54 Dose: 1 mg Losartan Potassium (Cozaar -) 25 mg PO DAILY [facility] Last Admin: 05/22/16 15:06 Dose: 25 mg Methylprednisolone Sodium Succinate (Solu-Medrol -) 40 mg IVPB Q8H-IV [facility] Last Admin: 05/22/16 17:56 Dose: 40 mg Metoprolol Succinate (Toprol Xl -) 50 mg PO DAILY [facility] Last Admin: 05/22/16 15:07 Dose: 50 mg Metoprolol Tartrate (Lopressor Injection -) 2.5 mg IVPUSH Q4H PRN PRN Reason: HR >/= 130 Last Admin: 05/21/16 04:48 Dose: 2.5 mg Pantoprazole Sodium (Protonix -) 40 mg PO DAILY [facility] Last Admin: 05/22/16 08:59 Dose: 40 mg Rosuvastatin Calcium (Crestor -) 5 mg PO HS [facility] Last Admin: 05/21/16 21:24 Dose: 5 mg Sevelamer Carbonate (Renvela -) 800 mg PO TIDCM [facility] Last Admin: 05/22/16 17:56 Dose: 800 mg - Objective Vital Signs: Vital Signs Temperature 98.4 F 05/22/16 14:00 Pulse Rate 85 05/22/16 15:07 Respiratory Rate 18 05/22/16 14:35 Blood Pressure 119/47 05/22/16 14:35 O2 Sat by Pulse Oximetry (%) 98 05/22/16 10:50 Constitutional: Yes: No Distress HENT: Yes: Atraumatic Neck: Yes: Supple Cardiovascular: Yes: Regular Rate and Rhythm Respiratory: Yes: CTA Bilaterally Gastrointestinal: Yes: Normal Bowel Sounds Extremities: Yes: WNL Labs: CBC, BMP 05/22/16 11:10 05/22/16 14:05 INR, PTT INR 1.44 (0.82-1.09) H 05/11/16 09:02 Problem List - Problems (1) ESRD needing dialysis Code(s): N18.6 - END STAGE RENAL DISEASE (2) COPD (chronic obstructive pulmonary disease) Code(s): J44.9 - CHRONIC OBSTRUCTIVE PULMONARY DISEASE, UNSPECIFIED Qualifiers : COPD type: unspecified COPD Qualified Code(s): J44.9 - Chronic obstructive pulmonary disease, unspecified (3) A-fib Qualifiers: Atrial fibrillation type: unspecified Qualified Code(s): I48.91 - Unspecified atrial fibrillation (4) Atrial fibrillation with tachycardic ventricular rate Code(s): I48.91 - UNSPECIFIED ATRIAL FIBRILLATION (5) Defibrillator discharge Code(s): Z45.02 - ENCNTR FOR ADJUST AND MGMT OF AUTOMATIC IMPLNTBL CARD DEFIB (6) Pneumonia Code(s): J18.9 - PNEUMONIA, UNSPECIFIED ORGANISM Qualifiers: Pneumonia type: due to unspecified organism Laterality: unspecified laterality Lung location: unspecified part of lung Qualified Code(s): J18.9 - Pneumonia, unspecified organism (7) Acute on chronic systolic and diastolic heart failure, NYHA class 3 Code(s): I50.43 - ACUTE ON CHRONIC COMBINED SYSTOLIC AND DIASTOLIC HRT FAIL Assessment/Plan Laboratory Tests A/P 1. ESRD ON HD 2. PNA IV ABX duo nebs steroids BCX...POSITIVE 3. HTN STABLE ON MEDS 4. CHF 5. pleural effusion 6. hypothyroidism 7. hyperlipidemia 8. MVP 9. a-fib stable
[2016-05-22] MEDS: ROSUVASTATIN CA 5 MG TABLET (FP) PO SCH (21:21)
[2016-05-23] MEDS: methylPREDNISolone NA SUCC 40 MG/1 ML VIAL IVPB SCH ×2 (01:31→09:14)
[2016-05-23] MEDS: ALBUTEROL SO4 2.5/IPRATROPIUM 0.5 INH SOL 3 ML VIAL.NEB. NEB SCH ×4 (06:27→23:55)
[2016-05-23] MEDS: ASPIRIN 81 MG CHEWABLE TABLETS PO SCH (09:14)
[2016-05-23] MEDS: PANTOPRAZOLE 40 MG TABLET (FP) PO SCH (09:14)
[2016-05-23] MEDS: APIXABAN 2.5 MG TABLET PO SCH ×2 (09:14→22:02)
[2016-05-23] MEDS: LOSARTAN POTASSIUM 25 MG TABLET PO SCH (09:14)
[2016-05-23] MEDS: METOPROLOL SUCCINATE 50 MG TAB.SR.24H (FP) PO SCH (09:14)
[2016-05-23] MEDS: SEVELAMER CARBONATE 800 MG TAB (FP) PO SCH ×3 (09:14→18:03)
[2016-05-23] MEDS: ALBUTEROL SO4 0.083% IH SOL 2.5 MG/3 ML VIAL.NEB. NEB PRN (09:30)
--- NOTE | 2016-05-23 10:17 | PN ---
Progress Note (short form) - Note Progress Note: PULMONARY BUN 21/CR 2.1 RESTING COMFORTABLY VSS/AFEBRILE PALE/ANICTERIC DIMINISHED BREATH SOUNDS S1S2 BS+ NO NEDEMA LABS/MEDS/NOTES/IMAGING/MICRO REVIEWED Acute COPD Exacerbation ESRD on HD VRE Bacteremia LV Systolic Dysfunction Pleural Effusion - changed back to prednisone - inhaled bronchodilators standing and PRN - O2 to keep SpO2 >90% - restart symbicort and spiriva in am - if congestive changes persists, will discuss with renal further ultrafiltration - antibiotics per ID - rate control - continue anticoagulation Octavio SANDHU MD
--- NOTE | 2016-05-23 10:44 | PN ---
Progress Note, Physician History of Present Illness: seen and examined today in nad. no overnight events. no new complaints. - Current Medication List Current Medications: Active Medications Albuterol Sulfate (Ventolin 0.083% Nebulizer Soln -) 1 amp NEB Q4H PRN PRN Reason: SHORT OF BREATH/WHEEZING Albuterol/Ipratropium (Duoneb -) 1 amp NEB QIDR [facility] Last Admin: 05/23/16 06:27 Dose: 1 amp Apixaban (Eliquis -) 2.5 mg PO BID [facility] Last Admin: 05/23/16 09:14 Dose: 2.5 mg Aspirin (Asa -) 81 mg PO DAILY [facility] Last Admin: 05/23/16 09:14 Dose: 81 mg Digoxin (Lanoxin -) 0.125 mg PO Q72H [facility] Last Admin: 05/22/16 15:07 Dose: 0.125 mg Epoetin Jose 6,000 unit/ (Epoetin Jose 2,000 unit) 8,000 unit IVPUSH ONCE ONE Stop: 05/25/16 14:31 Guaifenesin/Codeine Phosphate (Robitussin Ac -) 10 ml PO Q8H PRN PRN Reason: COUGH Last Admin: 05/21/16 21:25 Dose: 10 ml Heparin Sodium (Porcine) (Heparin -) 1,000 unit IVPUSH ONCE ONE Stop: 05/25/16 13:23 Daptomycin 350 mg/ Sodium (Chloride) 50 mls @ 100 mls/hr IVPB MoWeFr@1600 [facility] Last Admin: 05/22/16 16:14 Dose: 100 mls/hr Lorazepam (Ativan -) 1 mg PO Q8H PRN PRN Reason: ANXIETY Last Admin: 05/22/16 21:21 Dose: 1 mg Losartan Potassium (Cozaar -) 25 mg PO DAILY [facility] Last Admin: 05/23/16 09:14 Dose: 25 mg Metoprolol Succinate (Toprol Xl -) 50 mg PO DAILY [facility] Last Admin: 05/23/16 09:14 Dose: 50 mg Metoprolol Tartrate (Lopressor Injection -) 2.5 mg IVPUSH Q4H PRN PRN Reason: HR >/= 130 Last Admin: 05/21/16 04:48 Dose: 2.5 mg Pantoprazole Sodium (Protonix -) 40 mg PO DAILY [facility] Last Admin: 05/23/16 09:14 Dose: 40 mg Prednisone (Deltasone -) 20 mg PO BID [facility] Rosuvastatin Calcium (Crestor -) 5 mg PO HS [facility] Last Admin: 05/22/16 21:21 Dose: 5 mg Sevelamer Carbonate (Renvela -) 800 mg PO TIDCM [facility] Last Admin: 05/23/16 09:14 Dose: 800 mg - Objective Vital Signs: Vital Signs Temperature 98.1 F 05/23/16 09:00 Pulse Rate 92 H 05/23/16 09:00 Respiratory Rate 18 05/23/16 09:00 Blood Pressure 125/33 05/23/16 09:00 O2 Sat by Pulse Oximetry (%) 95 05/23/16 09:00 Constitutional: Yes: No Distress, Calm Eyes: Yes: WNL, Conjunctiva Clear, EOM Intact, PERRL HENT: Yes: WNL, Atraumatic, Normocephalic Neck: Yes: Supple, Trachea Midline Cardiovascular: Yes: Pulse Irregular, Murmur, S1, S2. No: Bradycardia, Tachycardia, Bruit, JVD, Gallop, Rub, S3, S4, Varicosities Respiratory: Yes: Regular, Diminished, Wheezes. No: Rales, Rhonchi Gastrointestinal: Yes: WNL, Normal Bowel Sounds, Soft. No: Distention, Tenderness Musculoskeletal: Yes: WNL Extremities: Yes: WNL Edema: No Peripheral Pulses WNL: Yes Peripheral Pulses: Left Doralis Pedis: 2+, Right Dorsalis Pedis: 2+ Integumentary: Yes: WNL Neurological: Yes: Alert, Oriented Psychiatric: Yes: Alert, Oriented Labs: CBC, BMP 05/22/16 11:10 05/22/16 14:05 INR, PTT INR 1.44 (0.82-1.09) H 05/11/16 09:02 - ....Imaging Chest X-ray: Report Reviewed, Image Reviewed EKG: Report Reviewed, Image Reviewed Other: Report Reviewed, Image Reviewed (tele-afib, HR controlled, pvcs) Assessment/Plan 80 year old woman with a history of AFib on eliquis, chronic systolic CHF s/p ICD, htn, hld, esrd on HD admitted with sob, ICD shock. SOB-AE COPD, acute on chronic combined systolic/diastolic CHF -fluid removal with HD -on steroids for copd -afib HR controlled Afib-chronic, HR controlled -cont digoxin as ordered by Dr. Mcclain, q72 hours -cont metoprolol, uptitrate if needed if HR becomes uncontrolled -cont eliquis HTN-adequately controlled -cont current regimen CAD-s/p stent -cont current medical regimen ICD shock -replete electrolytes -rate control Afib -f/up ICD interrogation
[2016-05-23] MEDS: predniSONE 20 MG TABLET (UD) PO SCH ×2 (11:17→22:02)
--- NOTE | 2016-05-23 11:28 | PN ---
Progress Note, Physician History of Present Illness: BETTER - Current Medication List Current Medications: Active Medications Albuterol Sulfate (Ventolin 0.083% Nebulizer Soln -) 1 amp NEB Q4H PRN PRN Reason: SHORT OF BREATH/WHEEZING Last Admin: 05/23/16 09:30 Dose: 1 amp Albuterol/Ipratropium (Duoneb -) 1 amp NEB QIDR [facility] Last Admin: 05/23/16 06:27 Dose: 1 amp Apixaban (Eliquis -) 2.5 mg PO BID [facility] Last Admin: 05/23/16 09:14 Dose: 2.5 mg Aspirin (Asa -) 81 mg PO DAILY [facility] Last Admin: 05/23/16 09:14 Dose: 81 mg Digoxin (Lanoxin -) 0.125 mg PO Q72H [facility] Last Admin: 05/22/16 15:07 Dose: 0.125 mg Epoetin Jose 6,000 unit/ (Epoetin Jsoe 2,000 unit) 8,000 unit IVPUSH ONCE ONE Stop: 05/25/16 14:31 Guaifenesin/Codeine Phosphate (Robitussin Ac -) 10 ml PO Q8H PRN PRN Reason: COUGH Last Admin: 05/21/16 21:25 Dose: 10 ml Heparin Sodium (Porcine) (Heparin -) 1,000 unit IVPUSH ONCE ONE Stop: 05/25/16 13:23 Daptomycin 350 mg/ Sodium (Chloride) 50 mls @ 100 mls/hr IVPB MoWeFr@1600 [facility] Last Admin: 05/22/16 16:14 Dose: 100 mls/hr Lorazepam (Ativan -) 1 mg PO Q8H PRN PRN Reason: ANXIETY Last Admin: 05/22/16 21:21 Dose: 1 mg Losartan Potassium (Cozaar -) 25 mg PO DAILY [facility] Last Admin: 05/23/16 09:14 Dose: 25 mg Metoprolol Succinate (Toprol Xl -) 50 mg PO DAILY [facility] Last Admin: 05/23/16 09:14 Dose: 50 mg Metoprolol Tartrate (Lopressor Injection -) 2.5 mg IVPUSH Q4H PRN PRN Reason: HR >/= 130 Last Admin: 05/21/16 04:48 Dose: 2.5 mg Pantoprazole Sodium (Protonix -) 40 mg PO DAILY [facility] Last Admin: 05/23/16 09:14 Dose: 40 mg Prednisone (Deltasone -) 20 mg PO BID [facility] Last Admin: 05/23/16 11:17 Dose: Not Given Rosuvastatin Calcium (Crestor -) 5 mg PO HS [facility] Last Admin: 05/22/16 21:21 Dose: 5 mg Sevelamer Carbonate (Renvela -) 800 mg PO TIDCM [facility] Last Admin: 05/23/16 09:14 Dose: 800 mg - Objective Vital Signs: Vital Signs Temperature 98.1 F 05/23/16 09:00 Pulse Rate 82 05/23/16 09:30 Respiratory Rate 18 05/23/16 09:00 Blood Pressure 125/33 05/23/16 09:00 O2 Sat by Pulse Oximetry (%) 96 05/23/16 09:30 HENT: Yes: Atraumatic Cardiovascular: Yes: Regular Rate and Rhythm Respiratory: Yes: CTA Bilaterally Gastrointestinal: Yes: Normal Bowel Sounds Extremities: Yes: WNL Neurological: Yes: Alert, Oriented Labs: CBC, BMP 05/22/16 11:10 05/22/16 14:05 INR, PTT INR 1.44 (0.82-1.09) H 05/11/16 09:02 Problem List - Problems (1) ESRD needing dialysis Code(s): N18.6 - END STAGE RENAL DISEASE (2) COPD (chronic obstructive pulmonary disease) Code(s): J44.9 - CHRONIC OBSTRUCTIVE PULMONARY DISEASE, UNSPECIFIED Qualifiers : COPD type: unspecified COPD Qualified Code(s): J44.9 - Chronic obstructive pulmonary disease, unspecified (3) A-fib Qualifiers: Atrial fibrillation type: unspecified Qualified Code(s): I48.91 - Unspecified atrial fibrillation (4) Atrial fibrillation with tachycardic ventricular rate Code(s): I48.91 - UNSPECIFIED ATRIAL FIBRILLATION (5) Defibrillator discharge Code(s): Z45.02 - ENCNTR FOR ADJUST AND MGMT OF AUTOMATIC IMPLNTBL CARD DEFIB (6) Pneumonia Code(s): J18.9 - PNEUMONIA, UNSPECIFIED ORGANISM Qualifiers: Pneumonia type: due to unspecified organism Laterality: unspecified laterality Lung location: unspecified part of lung Qualified Code(s): J18.9 - Pneumonia, unspecified organism (7) Acute on chronic systolic and diastolic heart failure, NYHA class 3 Code(s): I50.43 - ACUTE ON CHRONIC COMBINED SYSTOLIC AND DIASTOLIC HRT FAIL Assessment/Plan Laboratory Tests A/P 1. ESRD ON HD 2. PNA IV ABX duo nebs steroids BCX...POSITIVE 3. HTN STABLE ON MEDS 4. CHF 5. pleural effusion 6. hypothyroidism 7. hyperlipidemia 8. MVP 9. a-fib stable
--- NOTE | 2016-05-23 12:22 | PN ---
Progress Note, Physician History of Present Illness: Renal F/U Pt feels better after her HD yesterday since she has much less dyspnea today Pt has a pitcher of water at the bedside and states that she wasn't aware she need to restrict fluids in addition to salt - Current Medication List Current Medications: Active Medications Albuterol Sulfate (Ventolin 0.083% Nebulizer Soln -) 1 amp NEB Q4H PRN PRN Reason: SHORT OF BREATH/WHEEZING Last Admin: 05/23/16 09:30 Dose: 1 amp Albuterol/Ipratropium (Duoneb -) 1 amp NEB QIDR [facility] Last Admin: 05/23/16 11:40 Dose: 1 amp Apixaban (Eliquis -) 2.5 mg PO BID [facility] Last Admin: 05/23/16 09:14 Dose: 2.5 mg Aspirin (Asa -) 81 mg PO DAILY [facility] Last Admin: 05/23/16 09:14 Dose: 81 mg Digoxin (Lanoxin -) 0.125 mg PO Q72H [facility] Last Admin: 05/22/16 15:07 Dose: 0.125 mg Epoetin Jose 6,000 unit/ (Epoetin Jose 2,000 unit) 8,000 unit IVPUSH ONCE ONE Stop: 05/25/16 14:31 Guaifenesin/Codeine Phosphate (Robitussin Ac -) 10 ml PO Q8H PRN PRN Reason: COUGH Last Admin: 05/21/16 21:25 Dose: 10 ml Heparin Sodium (Porcine) (Heparin -) 1,000 unit IVPUSH ONCE ONE Stop: 05/25/16 13:23 Daptomycin 350 mg/ Sodium (Chloride) 50 mls @ 100 mls/hr IVPB MoWeFr@1600 [facility] Last Admin: 05/22/16 16:14 Dose: 100 mls/hr Lorazepam (Ativan -) 1 mg PO Q8H PRN PRN Reason: ANXIETY Last Admin: 05/22/16 21:21 Dose: 1 mg Losartan Potassium (Cozaar -) 25 mg PO DAILY [facility] Last Admin: 05/23/16 09:14 Dose: 25 mg Metoprolol Succinate (Toprol Xl -) 50 mg PO DAILY [facility] Last Admin: 05/23/16 09:14 Dose: 50 mg Metoprolol Tartrate (Lopressor Injection -) 2.5 mg IVPUSH Q4H PRN PRN Reason: HR >/= 130 Last Admin: 05/21/16 04:48 Dose: 2.5 mg Pantoprazole Sodium (Protonix -) 40 mg PO DAILY [facility] Last Admin: 05/23/16 09:14 Dose: 40 mg Prednisone (Deltasone -) 20 mg PO BID [facility] Last Admin: 05/23/16 11:17 Dose: Not Given Rosuvastatin Calcium (Crestor -) 5 mg PO HS [facility] Last Admin: 05/22/16 21:21 Dose: 5 mg Sevelamer Carbonate (Renvela -) 800 mg PO TIDCM [facility] Last Admin: 05/23/16 09:14 Dose: 800 mg - Objective Vital Signs: Vital Signs Temperature 98.1 F 05/23/16 09:00 Pulse Rate 82 05/23/16 09:30 Respiratory Rate 18 05/23/16 09:00 Blood Pressure 125/33 05/23/16 09:00 O2 Sat by Pulse Oximetry (%) 96 05/23/16 09:30 Constitutional: Yes: No Distress Cardiovascular: Yes: Murmur, S1, S2 Respiratory: Yes: Other (Decreased BS at bases). No: Rales, Wheezes Gastrointestinal: Yes: Soft. No: Tenderness, Rebound Edema: No Labs: CBC, BMP 05/22/16 11:10 05/22/16 14:05 INR, PTT INR 1.44 (0.82-1.09) H 05/11/16 09:02 Assessment/Plan Impression 1. ESRD 2. PNA 3. HTN 4. CHF 5. pleural effusion 6. hypothyroidism 7. hyperlipidemia 8. MVP 9. A-fib 10. Anemia Plan Fluid Restriction/Renal Diet Next HD 2/20- 3 hrs, 1000 heparin, 500 maintenance, permacath and 1 needle in the AVF , Hectorol 2 mcg, Aranesp 35 weekly, 2 k AC as per primary care Dr Lira
--- NOTE | 2016-05-23 14:48 | PN ---
Progress Note, Physician History of Present Illness: patient better better that yesterday - Current Medication List Current Medications: Active Medications Albuterol Sulfate (Ventolin 0.083% Nebulizer Soln -) 1 amp NEB Q4H PRN PRN Reason: SHORT OF BREATH/WHEEZING Last Admin: 05/23/16 09:30 Dose: 1 amp Albuterol/Ipratropium (Duoneb -) 1 amp NEB QIDR [facility] [place] Last Admin: 05/23/16 11:40 Dose: 1 amp Apixaban (Eliquis -) 2.5 mg PO BID [facility] Last Admin: 05/23/16 09:14 Dose: 2.5 mg Aspirin (Asa -) 81 mg PO DAILY [facility] Last Admin: 05/23/16 09:14 Dose: 81 mg Digoxin (Lanoxin -) 0.125 mg PO Q72H [facility] Last Admin: 05/22/16 15:07 Dose: 0.125 mg Epoetin Jose 6,000 unit/ (Epoetin Jose 2,000 unit) 8,000 unit IVPUSH ONCE ONE Stop: 05/25/16 14:31 Guaifenesin/Codeine Phosphate (Robitussin Ac -) 10 ml PO Q8H PRN PRN Reason: COUGH Last Admin: 05/21/16 21:25 Dose: 10 ml Heparin Sodium (Porcine) (Heparin -) 1,000 unit IVPUSH ONCE ONE Stop: 05/25/16 13:23 Daptomycin 350 mg/ Sodium (Chloride) 50 mls @ 100 mls/hr IVPB MoWeFr@1600 [facility] Last Admin: 05/22/16 16:14 Dose: 100 mls/hr Lorazepam (Ativan -) 1 mg PO Q8H PRN PRN Reason: ANXIETY Last Admin: 05/22/16 21:21 Dose: 1 mg Losartan Potassium (Cozaar -) 25 mg PO DAILY [facility] [place] Last Admin: 05/23/16 09:14 Dose: 25 mg Metoprolol Succinate (Toprol Xl -) 50 mg PO DAILY [facility] [place] Last Admin: 05/23/16 09:14 Dose: 50 mg Metoprolol Tartrate (Lopressor Injection -) 2.5 mg IVPUSH Q4H PRN PRN Reason: HR >/= 130 Last Admin: 05/21/16 04:48 Dose: 2.5 mg Pantoprazole Sodium (Protonix -) 40 mg PO DAILY [facility] [place] Last Admin: 05/23/16 09:14 Dose: 40 mg Prednisone (Deltasone -) 20 mg PO BID [facility] [place] Last Admin: 05/23/16 11:17 Dose: Not Given Rosuvastatin Calcium (Crestor -) 5 mg PO HS [facility] [place] Last Admin: 05/22/16 21:21 Dose: 5 mg Sevelamer Carbonate (Renvela -) 800 mg PO TIDCM [facility] [place] Last Admin: 05/23/16 13:24 Dose: 800 mg - Objective Vital Signs: Vital Signs Temperature 98.1 F 05/23/16 09:00 Pulse Rate 82 05/23/16 09:30 Respiratory Rate 18 05/23/16 09:00 Blood Pressure 125/33 05/23/16 09:00 O2 Sat by Pulse Oximetry (%) 96 05/23/16 09:30 Constitutional: Yes: No Distress, Calm Cardiovascular: Yes: Pulse Irregular Respiratory: Yes: Regular, Poor Air Entry, Rales Gastrointestinal: Yes: Normal Bowel Sounds, Soft Musculoskeletal: Yes: WNL Extremities: Yes: WNL Neurological: Yes: Alert, Oriented Psychiatric: Yes: Alert Labs: CBC, BMP 05/22/16 11:10 05/22/16 14:05 INR, PTT INR 1.44 (0.82-1.09) H 05/11/16 09:02 Assessment/Plan patient evaluated and findings noted,patient is an immunocompromised patient patient is showing infiltrate in the lung which i think is pneumonia as she also ahs greenish sputum production Problem List - Problems (1) COPD (chronic obstructive pulmonary disease) Code(s): J44.9 - CHRONIC OBSTRUCTIVE PULMONARY DISEASE, UNSPECIFIED Qualifiers : COPD type: unspecified COPD Qualified Code(s): J44.9 - Chronic obstructive pulmonary disease, unspecified (2) A-fib Qualifiers: Atrial fibrillation type: unspecified Qualified Code(s): I48.91 - Unspecified atrial fibrillation (3) Acute on chronic systolic and diastolic heart failure, NYHA class 3 Code(s): I50.43 - ACUTE ON CHRONIC COMBINED SYSTOLIC AND DIASTOLIC HRT FAIL (4) Bleeding from dialysis shunt Code(s): T82.838A - HEMORRHAGE DUE TO VASCULAR PROSTH DEV/GRFT, INIT Qualifiers: Encounter type: initial encounter Qualified Code(s): T82.838A - Hemorrhage of vascular prosthetic devices, implants and grafts, initial encounter (5) Cough Code(s): R05 - COUGH (8) HTN (hypertension) Code(s): I10 - ESSENTIAL (PRIMARY) HYPERTENSION Qualifiers: Hypertension type: essential hypertension Qualified Code(s): I10 - Essential (primary) hypertension (9) Hyperlipidemia Code(s): E78.5 - HYPERLIPIDEMIA, UNSPECIFIED (10) Palpitations Code(s): R00.2 - PALPITATIONS (11) Paroxysmal atrial fibrillation Code(s): I48.0 - PAROXYSMAL ATRIAL FIBRILLATION (12) Shortness of breath Code(s): R06.02 - SHORTNESS OF BREATH (13) Anxiety and depression Code(s): F41.9 - ANXIETY DISORDER, UNSPECIFIED F32.9 - MAJOR DEPRESSIVE DISORDER, SINGLE EPISODE, UNSPECIFIED (14) Status post coronary artery stent placement Code(s): Z95.5 - PRESENCE OF CORONARY ANGIOPLASTY IMPLANT AND GRAFT (15) Panic anxiety syndrome Code(s): F41.0 - PANIC DISORDER WITHOUT AGORAPHOBIA pneumonia bacteremia gm positive plan continue current mgmt dialysis then remove catheter will make a decision about abx
[2016-05-23] MEDS: LORazepam 1 MG TABLET PO PRN (22:02)
[2016-05-23] MEDS: ROSUVASTATIN CA 5 MG TABLET (FP) PO SCH (22:02)
[2016-05-24] MEDS: ALBUTEROL SO4 2.5/IPRATROPIUM 0.5 INH SOL 3 ML VIAL.NEB. NEB SCH ×4 (06:24→23:08)
[2016-05-24] MEDS: PANTOPRAZOLE 40 MG TABLET (FP) PO SCH (09:12)
[2016-05-24] MEDS: SEVELAMER CARBONATE 800 MG TAB (FP) PO SCH ×3 (09:12→16:52)
[2016-05-24] MEDS: predniSONE 20 MG TABLET (UD) PO SCH ×2 (09:12→22:02)
[2016-05-24] MEDS: ASPIRIN 81 MG CHEWABLE TABLETS PO SCH (09:13)
[2016-05-24] MEDS: METOPROLOL SUCCINATE 50 MG TAB.SR.24H (FP) PO SCH (09:13)
[2016-05-24] MEDS: APIXABAN 2.5 MG TABLET PO SCH ×2 (09:13→22:02)
[2016-05-24] MEDS: LOSARTAN POTASSIUM 25 MG TABLET PO SCH (09:13)
--- NOTE | 2016-05-24 11:15 | PN ---
Progress Note (short form) - Note Progress Note: PULMONARY BUN 21/CR 2.1 RESTING COMFORTABLY VSS/AFEBRILE PALE/ANICTERIC DIMINISHED BREATH SOUNDS S1S2 BS+ NO NEDEMA LABS/MEDS/NOTES/IMAGING/MICRO REVIEWED Acute COPD Exacerbation ESRD on HD VRE Bacteremia LV Systolic Dysfunction Pleural Effusion - prednisone - inhaled bronchodilators standing and PRN - O2 to keep SpO2 >90% - antibiotics per ID - rate control - continue anticoagulation Octavio SANDHU MD
--- NOTE | 2016-05-24 11:46 | PN ---
Progress Note, Physician History of Present Illness: seen and examined today in nad. no overnight events. no new complaints. feeling better overall. - Current Medication List Current Medications: Active Medications Albuterol Sulfate (Ventolin 0.083% Nebulizer Soln -) 1 amp NEB Q4H PRN PRN Reason: SHORT OF BREATH/WHEEZING Last Admin: 05/23/16 09:30 Dose: 1 amp Albuterol/Ipratropium (Duoneb -) 1 amp NEB QIDR [facility] Last Admin: 05/24/16 06:24 Dose: 1 amp Apixaban (Eliquis -) 2.5 mg PO BID [facility] Last Admin: 05/24/16 09:13 Dose: 2.5 mg Aspirin (Asa -) 81 mg PO DAILY [facility] Last Admin: 05/24/16 09:13 Dose: 81 mg Digoxin (Lanoxin -) 0.125 mg PO Q72H [facility] Last Admin: 05/22/16 15:07 Dose: 0.125 mg Epoetin Jose 6,000 unit/ (Epoetin Jose 2,000 unit) 8,000 unit IVPUSH ONCE ONE Stop: 05/25/16 14:31 Heparin Sodium (Porcine) (Heparin -) 1,000 unit IVPUSH ONCE ONE Stop: 05/25/16 13:23 Daptomycin 350 mg/ Sodium (Chloride) 50 mls @ 100 mls/hr IVPB MoWeFr@1600 [facility] Last Admin: 05/22/16 16:14 Dose: 100 mls/hr Lorazepam (Ativan -) 1 mg PO Q8H PRN PRN Reason: ANXIETY Last Admin: 05/23/16 22:02 Dose: 1 mg Losartan Potassium (Cozaar -) 25 mg PO DAILY [facility] Last Admin: 05/24/16 09:13 Dose: 25 mg Metoprolol Succinate (Toprol Xl -) 50 mg PO DAILY [facility] Last Admin: 05/24/16 09:13 Dose: 50 mg Metoprolol Tartrate (Lopressor Injection -) 2.5 mg IVPUSH Q4H PRN PRN Reason: HR >/= 130 Last Admin: 05/21/16 04:48 Dose: 2.5 mg Pantoprazole Sodium (Protonix -) 40 mg PO DAILY [facility] Last Admin: 05/24/16 09:12 Dose: 40 mg Prednisone (Deltasone -) 20 mg PO BID [facility] Last Admin: 05/24/16 09:12 Dose: 20 mg Rosuvastatin Calcium (Crestor -) 5 mg PO HS [facility] Last Admin: 05/23/16 22:02 Dose: 5 mg Sevelamer Carbonate (Renvela -) 800 mg PO TIDCM [facility] Last Admin: 05/24/16 09:12 Dose: 800 mg - Objective Vital Signs: Vital Signs Temperature 97.4 F L 05/24/16 09:00 Pulse Rate 81 05/24/16 09:00 Respiratory Rate 18 05/24/16 09:00 Blood Pressure 129/48 05/24/16 09:00 O2 Sat by Pulse Oximetry (%) 97 05/24/16 09:00 Constitutional: Yes: Well Nourished, No Distress, Calm Eyes: Yes: WNL, Conjunctiva Clear, EOM Intact, PERRL HENT: Yes: WNL, Atraumatic, Normocephalic Neck: Yes: WNL, Supple, Trachea Midline Cardiovascular: Yes: Pulse Irregular, S1, S2. No: Bradycardia, Tachycardia, Bruit, JVD, Gallop, Murmur, Rub, S3, S4, Varicosities Respiratory: Yes: Regular, CTA Bilaterally. No: Rales, Rhonchi, Wheezes Gastrointestinal: Yes: WNL, Normal Bowel Sounds, Soft. No: Distention, Tenderness Musculoskeletal: Yes: WNL Extremities: Yes: WNL Edema: No Peripheral Pulses WNL: Yes Peripheral Pulses: Left Doralis Pedis: 2+, Right Dorsalis Pedis: 2+ Integumentary: Yes: WNL Neurological: Yes: WNL, Alert, Oriented, Cran Nerves II-XII Intact ...Motor Strength: WNL Psychiatric: Yes: WNL, Alert, Oriented Labs: CBC, BMP 05/22/16 11:10 05/22/16 14:05 INR, PTT INR 1.44 (0.82-1.09) H 05/11/16 09:02 - ....Imaging Chest X-ray: Report Reviewed, Image Reviewed EKG: Report Reviewed, Image Reviewed Other: Report Reviewed, Image Reviewed (tele-AFib, HR controlled, PVCs) Assessment/Plan 80 year old woman with a history of AFib on eliquis, chronic systolic CHF s/p ICD, htn, hld, esrd on HD admitted with sob, ICD shock. SOB-AE COPD, acute on chronic combined systolic/diastolic CHF -fluid removal with HD -on steroids for copd -afib HR controlled Afib-chronic, HR controlled -cont digoxin 0.125mg q72 hours, plan to check level after first few doses which would be in 1-2 weeks -cont metoprolol xl 50mg daily -cont eliquis 2.5mg bid HTN-adequately controlled -cont current regimen CAD-s/p stent -stable -cont current medical regimen ICD shock -replete electrolytes as needed -cont metoprolol xl 50mg daily -rate control Afib as above -ICD settings were reportedly adjusted to avoid inappropriate shocks
--- NOTE | 2016-05-24 11:53 | PN ---
Progress Note, Physician History of Present Illness: Renal F/U Pt feels better today and was able to ambulate in the room without supplemental oxygen and had no CP or Dyspnea - Current Medication List Current Medications: Active Medications Albuterol Sulfate (Ventolin 0.083% Nebulizer Soln -) 1 amp NEB Q4H PRN PRN Reason: SHORT OF BREATH/WHEEZING Last Admin: 05/23/16 09:30 Dose: 1 amp Albuterol/Ipratropium (Duoneb -) 1 amp NEB QIDR [facility] Last Admin: 05/24/16 06:24 Dose: 1 amp Apixaban (Eliquis -) 2.5 mg PO BID [facility] Last Admin: 05/24/16 09:13 Dose: 2.5 mg Aspirin (Asa -) 81 mg PO DAILY [facility] Last Admin: 05/24/16 09:13 Dose: 81 mg Digoxin (Lanoxin -) 0.125 mg PO Q72H [facility] Last Admin: 05/22/16 15:07 Dose: 0.125 mg Epoetin Jose 6,000 unit/ (Epoetin Jose 2,000 unit) 8,000 unit IVPUSH ONCE ONE Stop: 05/25/16 14:31 Heparin Sodium (Porcine) (Heparin -) 1,000 unit IVPUSH ONCE ONE Stop: 05/25/16 13:23 Daptomycin 350 mg/ Sodium (Chloride) 50 mls @ 100 mls/hr IVPB MoWeFr@1600 [facility] Last Admin: 05/22/16 16:14 Dose: 100 mls/hr Lorazepam (Ativan -) 1 mg PO Q8H PRN PRN Reason: ANXIETY Last Admin: 05/23/16 22:02 Dose: 1 mg Losartan Potassium (Cozaar -) 25 mg PO DAILY [facility] Last Admin: 05/24/16 09:13 Dose: 25 mg Metoprolol Succinate (Toprol Xl -) 50 mg PO DAILY [facility] Last Admin: 05/24/16 09:13 Dose: 50 mg Metoprolol Tartrate (Lopressor Injection -) 2.5 mg IVPUSH Q4H PRN PRN Reason: HR >/= 130 Last Admin: 05/21/16 04:48 Dose: 2.5 mg Pantoprazole Sodium (Protonix -) 40 mg PO DAILY [facility] Last Admin: 05/24/16 09:12 Dose: 40 mg Prednisone (Deltasone -) 20 mg PO BID [facility] Last Admin: 05/24/16 09:12 Dose: 20 mg Rosuvastatin Calcium (Crestor -) 5 mg PO HS [facility] Last Admin: 05/23/16 22:02 Dose: 5 mg Sevelamer Carbonate (Renvela -) 800 mg PO TIDCM [facility] Last Admin: 05/24/16 09:12 Dose: 800 mg - Objective Vital Signs: Vital Signs Temperature 97.4 F L 05/24/16 09:00 Pulse Rate 81 05/24/16 09:00 Respiratory Rate 18 05/24/16 09:00 Blood Pressure 129/48 05/24/16 09:00 O2 Sat by Pulse Oximetry (%) 97 05/24/16 09:00 Constitutional: Yes: No Distress Cardiovascular: Yes: Pulse Irregular, S1, S2. No: JVD Respiratory: Yes: Rhonchi Gastrointestinal: Yes: Soft. No: Tenderness, Rebound Edema: No Labs: CBC, BMP 05/22/16 11:10 05/22/16 14:05 INR, PTT INR 1.44 (0.82-1.09) H 05/11/16 09:02 Assessment/Plan Impression 1. ESRD 2. PNA 3. HTN 4. CHF 5. pleural effusion 6. hypothyroidism 7. hyperlipidemia 8. MVP 9. A-fib 10. Anemia Plan Fluid Restriction/Renal Diet Next HD tomorrow orders written by Dr Zuluaga- Dialysis will be for 3 hrs, 1000 units heparin as a load then 500 units/hr , and to use the permacath and 1 needle in the AVF , Hectorol 2 mcg, Aranesp 35 weekly, 2 k AC as per primary care Dr Lira
--- NOTE | 2016-05-24 15:41 | PN ---
Progress Note, Physician History of Present Illness: BETTER - Current Medication List Current Medications: Active Medications Albuterol Sulfate (Ventolin 0.083% Nebulizer Soln -) 1 amp NEB Q4H PRN PRN Reason: SHORT OF BREATH/WHEEZING Last Admin: 05/23/16 09:30 Dose: 1 amp Albuterol/Ipratropium (Duoneb -) 1 amp NEB QIDR [facility] Last Admin: 05/24/16 11:15 Dose: 1 amp Apixaban (Eliquis -) 2.5 mg PO BID [facility] Last Admin: 05/24/16 09:13 Dose: 2.5 mg Aspirin (Asa -) 81 mg PO DAILY [facility] Last Admin: 05/24/16 09:13 Dose: 81 mg Digoxin (Lanoxin -) 0.125 mg PO Q72H [facility] Last Admin: 05/22/16 15:07 Dose: 0.125 mg Epoetin Jose 6,000 unit/ (Epoetin Jose 2,000 unit) 8,000 unit IVPUSH ONCE ONE Stop: 05/25/16 14:31 Heparin Sodium (Porcine) (Heparin -) 1,000 unit IVPUSH ONCE ONE Stop: 05/25/16 13:23 Daptomycin 350 mg/ Sodium (Chloride) 50 mls @ 100 mls/hr IVPB MoWeFr@1600 [facility] Last Admin: 05/22/16 16:14 Dose: 100 mls/hr Lorazepam (Ativan -) 1 mg PO Q8H PRN PRN Reason: ANXIETY Last Admin: 05/23/16 22:02 Dose: 1 mg Losartan Potassium (Cozaar -) 25 mg PO DAILY [facility] Last Admin: 05/24/16 09:13 Dose: 25 mg Metoprolol Succinate (Toprol Xl -) 50 mg PO DAILY [facility] Last Admin: 05/24/16 09:13 Dose: 50 mg Metoprolol Tartrate (Lopressor Injection -) 2.5 mg IVPUSH Q4H PRN PRN Reason: HR >/= 130 Last Admin: 05/21/16 04:48 Dose: 2.5 mg Pantoprazole Sodium (Protonix -) 40 mg PO DAILY [facility] Last Admin: 05/24/16 09:12 Dose: 40 mg Prednisone (Deltasone -) 20 mg PO BID [facility] Last Admin: 05/24/16 09:12 Dose: 20 mg Rosuvastatin Calcium (Crestor -) 5 mg PO HS [facility] Last Admin: 05/23/16 22:02 Dose: 5 mg Sevelamer Carbonate (Renvela -) 800 mg PO TIDCM [facility] Last Admin: 05/24/16 12:33 Dose: 800 mg - Objective Vital Signs: Vital Signs Temperature 98.0 F 05/24/16 14:00 Pulse Rate 82 05/24/16 14:00 Respiratory Rate 18 05/24/16 14:00 Blood Pressure 118/48 05/24/16 14:00 O2 Sat by Pulse Oximetry (%) 97 05/24/16 11:15 Constitutional: Yes: No Distress HENT: Yes: Atraumatic Neck: Yes: Supple Cardiovascular: Yes: Regular Rate and Rhythm Respiratory: Yes: Rhonchi Gastrointestinal: Yes: Normal Bowel Sounds Extremities: Yes: WNL Neurological: Yes: Alert, Oriented Labs: CBC, BMP 05/22/16 11:10 05/22/16 14:05 INR, PTT INR 1.44 (0.82-1.09) H 05/11/16 09:02 Problem List - Problems (1) ESRD needing dialysis Code(s): N18.6 - END STAGE RENAL DISEASE (2) COPD (chronic obstructive pulmonary disease) Code(s): J44.9 - CHRONIC OBSTRUCTIVE PULMONARY DISEASE, UNSPECIFIED Qualifiers : COPD type: unspecified COPD Qualified Code(s): J44.9 - Chronic obstructive pulmonary disease, unspecified (3) A-fib Qualifiers: Atrial fibrillation type: unspecified Qualified Code(s): I48.91 - Unspecified atrial fibrillation (4) Atrial fibrillation with tachycardic ventricular rate Code(s): I48.91 - UNSPECIFIED ATRIAL FIBRILLATION (5) Defibrillator discharge Code(s): Z45.02 - ENCNTR FOR ADJUST AND MGMT OF AUTOMATIC IMPLNTBL CARD DEFIB (6) Pneumonia Code(s): J18.9 - PNEUMONIA, UNSPECIFIED ORGANISM Qualifiers: Pneumonia type: due to unspecified organism Laterality: unspecified laterality Lung location: unspecified part of lung Qualified Code(s): J18.9 - Pneumonia, unspecified organism (7) Acute on chronic systolic and diastolic heart failure, NYHA class 3 Code(s): I50.43 - ACUTE ON CHRONIC COMBINED SYSTOLIC AND DIASTOLIC HRT FAIL Assessment/Plan Laboratory Tests A/P 1. ESRD ON HD 2. PNA IV ABX BCX...POSITIVE STEROIDS DUO NEBS 3. HTN STABLE ON MEDS 4. CHF 5. pleural effusion 6. hypothyroidism 7. hyperlipidemia 8. MVP 9. a-fib stable
--- NOTE | 2016-05-24 16:58 | PN ---
Progress Note, Physician History of Present Illness: patient better no issues - Current Medication List Current Medications: Active Medications Albuterol Sulfate (Ventolin 0.083% Nebulizer Soln -) 1 amp NEB Q4H PRN PRN Reason: SHORT OF BREATH/WHEEZING Last Admin: 05/23/16 09:30 Dose: 1 amp Albuterol/Ipratropium (Duoneb -) 1 amp NEB QIDR [facility] Last Admin: 05/24/16 11:15 Dose: 1 amp Apixaban (Eliquis -) 2.5 mg PO BID [facility] Last Admin: 05/24/16 09:13 Dose: 2.5 mg Aspirin (Asa -) 81 mg PO DAILY [facility] Last Admin: 05/24/16 09:13 Dose: 81 mg Digoxin (Lanoxin -) 0.125 mg PO Q72H [facility] Last Admin: 05/22/16 15:07 Dose: 0.125 mg Epoetin Jose 6,000 unit/ (Epoetin Jose 2,000 unit) 8,000 unit IVPUSH ONCE ONE Stop: 05/25/16 14:31 Heparin Sodium (Porcine) (Heparin -) 1,000 unit IVPUSH ONCE ONE Stop: 05/25/16 13:23 Daptomycin 350 mg/ Sodium (Chloride) 50 mls @ 100 mls/hr IVPB MoWeFr@1600 [facility] Last Admin: 05/22/16 16:14 Dose: 100 mls/hr Lorazepam (Ativan -) 1 mg PO Q8H PRN PRN Reason: ANXIETY Last Admin: 05/23/16 22:02 Dose: 1 mg Losartan Potassium (Cozaar -) 25 mg PO DAILY [facility] Last Admin: 05/24/16 09:13 Dose: 25 mg Metoprolol Succinate (Toprol Xl -) 50 mg PO DAILY [facility] Last Admin: 05/24/16 09:13 Dose: 50 mg Metoprolol Tartrate (Lopressor Injection -) 2.5 mg IVPUSH Q4H PRN PRN Reason: HR >/= 130 Last Admin: 05/21/16 04:48 Dose: 2.5 mg Pantoprazole Sodium (Protonix -) 40 mg PO DAILY [facility] Last Admin: 05/24/16 09:12 Dose: 40 mg Prednisone (Deltasone -) 20 mg PO BID [facility] Last Admin: 05/24/16 09:12 Dose: 20 mg Rosuvastatin Calcium (Crestor -) 5 mg PO HS [facility] Last Admin: 05/23/16 22:02 Dose: 5 mg Sevelamer Carbonate (Renvela -) 800 mg PO TIDCM [facility] Last Admin: 05/24/16 16:52 Dose: 800 mg - Objective Vital Signs: Vital Signs Temperature 98.0 F 05/24/16 14:00 Pulse Rate 82 05/24/16 14:00 Respiratory Rate 18 05/24/16 14:00 Blood Pressure 118/48 05/24/16 14:00 O2 Sat by Pulse Oximetry (%) 97 05/24/16 11:15 Constitutional: Yes: No Distress, Calm Neck: Yes: Supple Cardiovascular: Yes: Regular Rate and Rhythm Respiratory: Yes: Regular, Poor Air Entry Gastrointestinal: Yes: Normal Bowel Sounds, Soft Musculoskeletal: Yes: WNL Extremities: Yes: WNL Neurological: Yes: Alert Psychiatric: Yes: Alert Labs: CBC, BMP 05/22/16 11:10 05/22/16 14:05 INR, PTT INR 1.44 (0.82-1.09) H 05/11/16 09:02 Assessment/Plan patient evaluated and findings noted,patient is an immunocompromised patient patient is showing infiltrate in the lung which i think is pneumonia as she also ahs greenish sputum production Problem List - Problems (1) COPD (chronic obstructive pulmonary disease) Code(s): J44.9 - CHRONIC OBSTRUCTIVE PULMONARY DISEASE, UNSPECIFIED Qualifiers : COPD type: unspecified COPD Qualified Code(s): J44.9 - Chronic obstructive pulmonary disease, unspecified (2) A-fib Qualifiers: Atrial fibrillation type: unspecified Qualified Code(s): I48.91 - Unspecified atrial fibrillation (3) Acute on chronic systolic and diastolic heart failure, NYHA class 3 Code(s): I50.43 - ACUTE ON CHRONIC COMBINED SYSTOLIC AND DIASTOLIC HRT FAIL (4) Bleeding from dialysis shunt Code(s): T82.838A - HEMORRHAGE DUE TO VASCULAR PROSTH DEV/GRFT, INIT Qualifiers: Encounter type: initial encounter Qualified Code(s): T82.838A - Hemorrhage of vascular prosthetic devices, implants and grafts, initial encounter (5) Cough Code(s): R05 - COUGH (8) HTN (hypertension) Code(s): I10 - ESSENTIAL (PRIMARY) HYPERTENSION Qualifiers: Hypertension type: essential hypertension Qualified Code(s): I10 - Essential (primary) hypertension (9) Hyperlipidemia Code(s): E78.5 - HYPERLIPIDEMIA, UNSPECIFIED (10) Palpitations Code(s): R00.2 - PALPITATIONS (11) Paroxysmal atrial fibrillation Code(s): I48.0 - PAROXYSMAL ATRIAL FIBRILLATION (12) Shortness of breath Code(s): R06.02 - SHORTNESS OF BREATH (13) Anxiety and depression Code(s): F41.9 - ANXIETY DISORDER, UNSPECIFIED F32.9 - MAJOR DEPRESSIVE DISORDER, SINGLE EPISODE, UNSPECIFIED (14) Status post coronary artery stent placement Code(s): Z95.5 - PRESENCE OF CORONARY ANGIOPLASTY IMPLANT AND GRAFT (15) Panic anxiety syndrome Code(s): F41.0 - PANIC DISORDER WITHOUT AGORAPHOBIA pneumonia bacteremia gm positive plan continue current mgmt patient for dialysis and then if dialysis is successful then further plan will be done
[2016-05-24] MEDS: ROSUVASTATIN CA 5 MG TABLET (FP) PO SCH (22:02)
[2016-05-25] MEDS: LORazepam 1 MG TABLET PO PRN (06:41)
[2016-05-25] MEDS: ALBUTEROL SO4 2.5/IPRATROPIUM 0.5 INH SOL 3 ML VIAL.NEB. NEB SCH (06:45)
[2016-05-25] MEDS ORDERED: HEPARIN NA (PORCINE) 5,000 UNITS/ML 1ML VIAL IVPUSH ONE (08:00)
[2016-05-25] MEDS ORDERED: EPOETIN ALFA 6,000 UNIT, EPOETIN ALFA 2,000 UNIT IVPUSH ONE (09:00)
[2016-05-25] MEDS: SEVELAMER CARBONATE 800 MG TAB (FP) PO SCH ×3 (10:01→18:00)
[2016-05-25] MEDS: PANTOPRAZOLE 40 MG TABLET (FP) PO SCH (10:02)
[2016-05-25] MEDS: APIXABAN 2.5 MG TABLET PO SCH ×2 (10:02→21:10)
[2016-05-25] MEDS: predniSONE 20 MG TABLET (UD) PO SCH ×2 (10:02→21:10)
[2016-05-25] MEDS: LOSARTAN POTASSIUM 25 MG TABLET PO SCH (10:02)
[2016-05-25] MEDS: ASPIRIN 81 MG CHEWABLE TABLETS PO SCH (10:02)
[2016-05-25] MEDS: DIGOXIN 0.125 MG TABLET (FP) PO SCH (10:04)
[2016-05-25] MEDS: METOPROLOL SUCCINATE 50 MG TAB.SR.24H (FP) PO SCH (10:04)
[2016-05-25] MEDS: ALBUTEROL SO4 0.083% IH SOL 2.5 MG/3 ML VIAL.NEB. NEB PRN (11:30)
--- NOTE | 2016-05-25 11:33 | PN ---
Progress Note, Physician History of Present Illness: PULMONARY ALERT,WEAK ,-RESP DISTRESS,S/P HD EARLIER - Current Medication List Current Medications: Active Medications Albuterol Sulfate (Ventolin 0.083% Nebulizer Soln -) 1 amp NEB Q4H PRN PRN Reason: SHORT OF BREATH/WHEEZING Last Admin: 05/23/16 09:30 Dose: 1 amp Albuterol/Ipratropium (Duoneb -) 1 amp NEB QIDR [facility] Last Admin: 05/25/16 06:45 Dose: 1 amp Apixaban (Eliquis -) 2.5 mg PO BID [facility] Last Admin: 05/25/16 10:02 Dose: 2.5 mg Aspirin (Asa -) 81 mg PO DAILY [facility] Last Admin: 05/25/16 10:02 Dose: 81 mg Digoxin (Lanoxin -) 0.125 mg PO Q72H [facility] Last Admin: 05/25/16 10:04 Dose: 0.125 mg Daptomycin 350 mg/ Sodium (Chloride) 50 mls @ 100 mls/hr IVPB MoWeFr@1600 [facility] Last Admin: 05/22/16 16:14 Dose: 100 mls/hr Lorazepam (Ativan -) 1 mg PO Q8H PRN Last Admin: 05/25/16 06:41 Dose: 1 mg Losartan Potassium (Cozaar -) 25 mg PO DAILY [facility] Last Admin: 05/25/16 10:02 Dose: Not Given Metoprolol Succinate (Toprol Xl -) 50 mg PO DAILY [facility] Last Admin: 05/25/16 10:04 Dose: 50 mg Metoprolol Tartrate (Lopressor Injection -) 2.5 mg IVPUSH Q4H PRN PRN Reason: HR >/= 130 Last Admin: 05/21/16 04:48 Dose: 2.5 mg Pantoprazole Sodium (Protonix -) 40 mg PO DAILY [facility] Last Admin: 05/25/16 10:02 Dose: 40 mg Prednisone (Deltasone -) 20 mg PO BID [facility] Last Admin: 05/25/16 10:02 Dose: 20 mg Rosuvastatin Calcium (Crestor -) 5 mg PO HS [facility] Last Admin: 05/24/16 22:02 Dose: 5 mg Sevelamer Carbonate (Renvela -) 800 mg PO TIDCM [facility] Last Admin: 05/25/16 10:01 Dose: 800 mg - Objective Vital Signs: Vital Signs Temperature 97.8 F 05/25/16 10:00 Pulse Rate 63 05/25/16 10:05 Respiratory Rate 18 05/25/16 10:05 Blood Pressure 116/56 05/25/16 10:05 O2 Sat by Pulse Oximetry (%) 99 05/24/16 22:00 Constitutional: Yes: Well Nourished, Calm Eyes: Yes: WNL HENT: Yes: WNL Neck: Yes: WNL Cardiovascular: Yes: Pulse Irregular, S1, S2 Respiratory: Yes: Diminished Gastrointestinal: Yes: WNL Extremities: Yes: WNL Edema: No Labs: CBC, BMP 05/22/16 11:10 05/22/16 14:05 INR, PTT INR 1.44 (0.82-1.09) H 05/11/16 09:02 Assessment/Plan Problem List - Problems (1) COPD exacerbation Code(s): J44.1 - CHRONIC OBSTRUCTIVE PULMONARY DISEASE W (ACUTE) EXACERBATION (2) ESRD needing dialysis Code(s): N18.6 - END STAGE RENAL DISEASE (3) A-fib Qualifiers: Atrial fibrillation type: unspecified Qualified Code(s): I48.91 - Unspecified atrial fibrillation (4) Chronic systolic (congestive) heart failure Code(s): I50.22 - CHRONIC SYSTOLIC (CONGESTIVE) HEART FAILURE (5) Pleural effusion Code(s): J90 - PLEURAL EFFUSION, NOT ELSEWHERE CLASSIFIED (6) Bacteremia Code(s): R78.81 - BACTEREMIA Assessment/Plan Acute COPD Exacerbationi mproving ESRD on HD VRE Bacteremia LV Systolic Dysfunction Pleural Effusion - prednisone - inhaled bronchodilators standing and PRN - O2 to keep SpO2 >90% - symbicort and spiriva - antibiotics per ID - rate control - continue anticoagulation DR AGUIRRE
--- NOTE | 2016-05-25 11:44 | PN ---
Progress Note, Physician History of Present Illness: seen and examined today on HD in room. pt resting comfortably at first then became very anxious after speaking with her . no overnight events. no other new complaints. - Current Medication List Current Medications: Active Medications Albuterol Sulfate (Ventolin 0.083% Nebulizer Soln -) 1 amp NEB Q4H PRN PRN Reason: SHORT OF BREATH/WHEEZING Last Admin: 05/23/16 09:30 Dose: 1 amp Apixaban (Eliquis -) 2.5 mg PO BID [facility] Last Admin: 05/25/16 10:02 Dose: 2.5 mg Aspirin (Asa -) 81 mg PO DAILY [facility] Last Admin: 05/25/16 10:02 Dose: 81 mg Budesonide/Formoterol Fumarate (Symbicort 160/4.5mcg -) 2 puff IH BID [facility] Digoxin (Lanoxin -) 0.125 mg PO Q72H [facility] Last Admin: 05/25/16 10:04 Dose: 0.125 mg Daptomycin 350 mg/ Sodium (Chloride) 50 mls @ 100 mls/hr IVPB MoWeFr@1600 [facility] Last Admin: 05/22/16 16:14 Dose: 100 mls/hr Lorazepam (Ativan -) 1 mg PO Q8H PRN Last Admin: 05/25/16 06:41 Dose: 1 mg Losartan Potassium (Cozaar -) 25 mg PO DAILY [facility] Last Admin: 05/25/16 10:02 Dose: Not Given Metoprolol Succinate (Toprol Xl -) 50 mg PO DAILY [facility] Last Admin: 05/25/16 10:04 Dose: 50 mg Metoprolol Tartrate (Lopressor Injection -) 2.5 mg IVPUSH Q4H PRN PRN Reason: HR >/= 130 Last Admin: 05/21/16 04:48 Dose: 2.5 mg Pantoprazole Sodium (Protonix -) 40 mg PO DAILY [facility] Last Admin: 05/25/16 10:02 Dose: 40 mg Prednisone (Deltasone -) 20 mg PO BID [facility] Last Admin: 05/25/16 10:02 Dose: 20 mg Rosuvastatin Calcium (Crestor -) 5 mg PO HS [facility] Last Admin: 05/24/16 22:02 Dose: 5 mg Sevelamer Carbonate (Renvela -) 800 mg PO TIDCM [facility] Last Admin: 05/25/16 10:01 Dose: 800 mg Tiotropium [place] (Spiriva -) 18 puff IH DAILY [facility] - Objective Vital Signs: Vital Signs Temperature 97.8 F 05/25/16 10:00 Pulse Rate 63 05/25/16 10:05 Respiratory Rate 18 05/25/16 10:05 Blood Pressure 116/56 05/25/16 10:05 O2 Sat by Pulse Oximetry (%) 99 05/24/16 22:00 Constitutional: Yes: Well Nourished, No Distress, Calm Eyes: Yes: WNL, Conjunctiva Clear, EOM Intact, PERRL HENT: Yes: WNL, Atraumatic, Normocephalic Neck: Yes: WNL, Supple, Trachea Midline Cardiovascular: Yes: Pulse Irregular, Murmur, S1, S2. No: Bradycardia, Tachycardia, Bruit, JVD, Gallop, Rub, S3, S4, Varicosities Respiratory: Yes: Regular, Diminished. No: Rales, Rhonchi, Wheezes Gastrointestinal: Yes: WNL, Normal Bowel Sounds, Soft. No: Distention, Tenderness Musculoskeletal: Yes: WNL Extremities: Yes: WNL Edema: No Peripheral Pulses WNL: Yes Peripheral Pulses: Left Doralis Pedis: 2+, Right Dorsalis Pedis: 2+ Integumentary: Yes: WNL Neurological: Yes: Alert, Oriented Psychiatric: Yes: Alert, Oriented, Other (Anxious) Labs: CBC, BMP 05/22/16 11:10 05/22/16 14:05 INR, PTT INR 1.44 (0.82-1.09) H 05/11/16 09:02 - ....Imaging Chest X-ray: Report Reviewed, Image Reviewed EKG: Report Reviewed, Image Reviewed Other: Report Reviewed, Image Reviewed (tele-Afib, HR controlled, PVCs) Assessment/Plan 80 year old woman with a history of AFib on eliquis, chronic systolic CHF s/p ICD, htn, hld, esrd on HD admitted with sob, ICD shock. SOB-AE COPD, acute on chronic combined systolic/diastolic CHF -fluid removal with HD -on steroids for copd -afib HR controlled Afib-chronic, HR controlled -cont digoxin 0.125mg q72 hours, plan to check level after first few doses -cont metoprolol xl 50mg daily -cont eliquis 2.5mg bid HTN-adequately controlled -cont current regimen CAD-s/p stent -stable -cont current medical regimen ICD shock -replete electrolytes as needed -cont metoprolol xl 50mg daily -rate control Afib as above -ICD settings were reportedly adjusted to avoid inappropriate shocks
--- NOTE | 2016-05-25 12:35 | PN ---
Progress Note, Physician History of Present Illness: patient better no issues had dialysis today fistula was successfully used - Current Medication List Current Medications: Active Medications Albuterol Sulfate (Ventolin 0.083% Nebulizer Soln -) 1 amp NEB Q4H PRN PRN Reason: SHORT OF BREATH/WHEEZING Last Admin: 05/25/16 11:30 Dose: 1 amp Apixaban (Eliquis -) 2.5 mg PO BID [facility] Last Admin: 05/25/16 10:02 Dose: 2.5 mg Aspirin (Asa -) 81 mg PO DAILY [facility] Last Admin: 05/25/16 10:02 Dose: 81 mg Budesonide/Formoterol Fumarate (Symbicort 160/4.5mcg -) 2 puff IH BID [facility] Digoxin (Lanoxin -) 0.125 mg PO Q72H [facility] Last Admin: 05/25/16 10:04 Dose: 0.125 mg Daptomycin 350 mg/ Sodium (Chloride) 50 mls @ 100 mls/hr IVPB MoWeFr@1600 [facility] Last Admin: 05/22/16 16:14 Dose: 100 mls/hr Lorazepam (Ativan -) 1 mg PO Q8H PRN Last Admin: 05/25/16 06:41 Dose: 1 mg Losartan Potassium (Cozaar -) 25 mg PO DAILY [facility] Last Admin: 05/25/16 10:02 Dose: Not Given Metoprolol Succinate (Toprol Xl -) 50 mg PO DAILY [facility] Last Admin: 05/25/16 10:04 Dose: 50 mg Metoprolol Tartrate (Lopressor Injection -) 2.5 mg IVPUSH Q4H PRN PRN Reason: HR >/= 130 Last Admin: 05/21/16 04:48 Dose: 2.5 mg Pantoprazole Sodium (Protonix -) 40 mg PO DAILY [facility] Last Admin: 05/25/16 10:02 Dose: 40 mg Prednisone (Deltasone -) 20 mg PO BID [facility] Last Admin: 05/25/16 10:02 Dose: 20 mg Rosuvastatin Calcium (Crestor -) 5 mg PO HS [facility] Last Admin: 05/24/16 22:02 Dose: 5 mg Sevelamer Carbonate (Renvela -) 800 mg PO TIDCM [facility] Last Admin: 05/25/16 10:01 Dose: 800 mg Tiotropium [place] (Spiriva -) 1 puff IH DAILY [facility] - Objective Vital Signs: Vital Signs Temperature 97.8 F 05/25/16 10:00 Pulse Rate 68 05/25/16 11:30 Respiratory Rate 18 05/25/16 10:05 Blood Pressure 116/56 05/25/16 10:05 O2 Sat by Pulse Oximetry (%) 98 05/25/16 11:30 Constitutional: Yes: No Distress, Calm Cardiovascular: Yes: Regular Rate and Rhythm Respiratory: Yes: Regular, Poor Air Entry Gastrointestinal: Yes: Normal Bowel Sounds, Soft Musculoskeletal: Yes: WNL Extremities: Yes: Other Neurological: Yes: Alert, Oriented Psychiatric: Yes: Alert, Oriented Labs: CBC, BMP 05/22/16 11:10 05/22/16 14:05 INR, PTT INR 1.44 (0.82-1.09) H 05/11/16 09:02 Assessment/Plan patient evaluated and findings noted,patient is an immunocompromised patient patient is showing infiltrate in the lung which i think is pneumonia as she also ahs greenish sputum production Problem List - Problems (1) COPD (chronic obstructive pulmonary disease) Code(s): J44.9 - CHRONIC OBSTRUCTIVE PULMONARY DISEASE, UNSPECIFIED Qualifiers : COPD type: unspecified COPD Qualified Code(s): J44.9 - Chronic obstructive pulmonary disease, unspecified (2) A-fib Qualifiers: Atrial fibrillation type: unspecified Qualified Code(s): I48.91 - Unspecified atrial fibrillation (3) Acute on chronic systolic and diastolic heart failure, NYHA class 3 Code(s): I50.43 - ACUTE ON CHRONIC COMBINED SYSTOLIC AND DIASTOLIC HRT FAIL (4) Bleeding from dialysis shunt Code(s): T82.838A - HEMORRHAGE DUE TO VASCULAR PROSTH DEV/GRFT, INIT Qualifiers: Encounter type: initial encounter Qualified Code(s): T82.838A - Hemorrhage of vascular prosthetic devices, implants and grafts, initial encounter (5) Cough Code(s): R05 - COUGH (8) HTN (hypertension) Code(s): I10 - ESSENTIAL (PRIMARY) HYPERTENSION Qualifiers: Hypertension type: essential hypertension Qualified Code(s): I10 - Essential (primary) hypertension (9) Hyperlipidemia Code(s): E78.5 - HYPERLIPIDEMIA, UNSPECIFIED (10) Palpitations Code(s): R00.2 - PALPITATIONS (11) Paroxysmal atrial fibrillation Code(s): I48.0 - PAROXYSMAL ATRIAL FIBRILLATION (12) Shortness of breath Code(s): R06.02 - SHORTNESS OF BREATH (13) Anxiety and depression Code(s): F41.9 - ANXIETY DISORDER, UNSPECIFIED F32.9 - MAJOR DEPRESSIVE DISORDER, SINGLE EPISODE, UNSPECIFIED (14) Status post coronary artery stent placement Code(s): Z95.5 - PRESENCE OF CORONARY ANGIOPLASTY IMPLANT AND GRAFT (15) Panic anxiety syndrome Code(s): F41.0 - PANIC DISORDER WITHOUT AGORAPHOBIA pneumonia bacteremia gm positive plan to stop abx after patient gets another 2 more doses remove the dialysis catheter
[2016-05-25] MEDS: BUDESONIDE/FORMETEROL FUMARATE 160/4.5 mcg INHALER IH SCH ×2 (13:01→21:12)
[2016-05-25] MEDS: TIOTROPIUM BROMIDE 18 MCG/INH (DEVICE W/ 5 CAPSULES) IH SCH (13:01)
[2016-05-25] MEDS ORDERED: EPOETIN ALFA 2,000 UNITS/1 ML VIAL IVPUSH ONE (13:22)
--- NOTE | 2016-05-25 13:51 | PN ---
Progress Note, Physician History of Present Illness: Pt seen and examined at bedside. She is awake and alert. She tolerated HD today via graft with 2 needles. - Current Medication List Current Medications: Active Medications Albuterol Sulfate (Ventolin 0.083% Nebulizer Soln -) 1 amp NEB Q4H PRN PRN Reason: SHORT OF BREATH/WHEEZING Last Admin: 05/25/16 11:30 Dose: 1 amp Apixaban (Eliquis -) 2.5 mg PO BID [facility] Last Admin: 05/25/16 10:02 Dose: 2.5 mg Aspirin (Asa -) 81 mg PO DAILY [facility] Last Admin: 05/25/16 10:02 Dose: 81 mg Budesonide/Formoterol Fumarate (Symbicort 160/4.5mcg -) 2 puff IH BID [facility] Last Admin: 05/25/16 13:01 Dose: 2 puff Digoxin (Lanoxin -) 0.125 mg PO Q72H [facility] Last Admin: 05/25/16 10:04 Dose: 0.125 mg Daptomycin 350 mg/ Sodium (Chloride) 50 mls @ 100 mls/hr IVPB MoWeFr@1600 [facility] Last Admin: 05/22/16 16:14 Dose: 100 mls/hr Lorazepam (Ativan -) 1 mg PO Q8H PRN Last Admin: 05/25/16 06:41 Dose: 1 mg Losartan Potassium (Cozaar -) 25 mg PO DAILY [facility] Last Admin: 05/25/16 10:02 Dose: Not Given Metoprolol Succinate (Toprol Xl -) 50 mg PO DAILY [facility] Last Admin: 05/25/16 10:04 Dose: 50 mg Metoprolol Tartrate (Lopressor Injection -) 2.5 mg IVPUSH Q4H PRN PRN Reason: HR >/= 130 Last Admin: 05/21/16 04:48 Dose: 2.5 mg Pantoprazole Sodium (Protonix -) 40 mg PO DAILY [facility] Last Admin: 05/25/16 10:02 Dose: 40 mg Prednisone (Deltasone -) 20 mg PO BID [facility] Last Admin: 05/25/16 10:02 Dose: 20 mg Rosuvastatin Calcium (Crestor -) 5 mg PO HS [facility] Last Admin: 05/24/16 22:02 Dose: 5 mg Sevelamer Carbonate (Renvela -) 800 mg PO TIDCM [facility] Last Admin: 05/25/16 13:00 Dose: 800 mg Tiotropium [place] (Spiriva -) 1 puff IH DAILY [facility] Last Admin: 05/25/16 13:01 Dose: 1 puff - Objective Vital Signs: Vital Signs Temperature 97.8 F 05/25/16 10:00 Pulse Rate 68 05/25/16 11:30 Respiratory Rate 18 05/25/16 10:05 Blood Pressure 116/56 05/25/16 10:05 O2 Sat by Pulse Oximetry (%) 98 05/25/16 11:30 Constitutional: Yes: Anxious Eyes: Yes: Conjunctiva Clear HENT: Yes: Atraumatic Neck: Yes: Supple Cardiovascular: Yes: S1, S2 Respiratory: Yes: CTA Bilaterally Gastrointestinal: Yes: Soft Genitourinary: Yes: WNL Musculoskeletal: Yes: WNL Edema: No Neurological: Yes: Oriented Psychiatric: Yes: Oriented Labs: CBC, BMP 05/22/16 11:10 05/22/16 14:05 INR, PTT INR 1.44 (0.82-1.09) H 05/11/16 09:02 Problem List - Problems (1) Defibrillator discharge Code(s): Z45.02 - ENCNTR FOR ADJUST AND MGMT OF AUTOMATIC IMPLNTBL CARD DEFIB (2) ESRD needing dialysis Code(s): N18.6 - END STAGE RENAL DISEASE (3) Panic anxiety syndrome Code(s): F41.0 - PANIC DISORDER WITHOUT AGORAPHOBIA (4) Pneumonia Code(s): J18.9 - PNEUMONIA, UNSPECIFIED ORGANISM Qualifiers: Pneumonia type: due to unspecified organism Laterality: unspecified laterality Lung location: unspecified part of lung Qualified Code(s): J18.9 - Pneumonia, unspecified organism (5) COPD (chronic obstructive pulmonary disease) Code(s): J44.9 - CHRONIC OBSTRUCTIVE PULMONARY DISEASE, UNSPECIFIED Qualifiers : COPD type: unspecified COPD Qualified Code(s): J44.9 - Chronic obstructive pulmonary disease, unspecified (6) A-fib Qualifiers: Atrial fibrillation type: unspecified Qualified Code(s): I48.91 - Unspecified atrial fibrillation (7) CHF (congestive heart failure) Code(s): I50.9 - HEART FAILURE, UNSPECIFIED Qualifiers: Congestive heart failure type: unspecified congestive heart failure type Congestive heart failure chronicity: unspecified congestive heart failure chronicity Qualified Code(s): I50.9 - Heart failure, unspecified (8) Cough Code(s): R05 - COUGH Assessment/Plan Current Medications Generic Name Dose Route Start Last Admin Trade Name Freq PRN Reason Stop Dose Admin Albuterol Sulfate 1 amp 05/21/16 16:35 05/25/16 11:30 Ventolin 0.083% Nebulizer Soln - NEB 1 amp Q4H PRN Administration SHORT OF BREATH/WHEEZING Apixaban 2.5 mg 05/11/16 22:00 05/25/16 10:02 Eliquis - PO 2.5 mg BID [facility] Administration Aspirin 81 mg 05/12/16 10:00 05/25/16 10:02 Asa - PO 81 mg DAILY [facility] Administration Budesonide/Formoterol Fumarate 2 puff 05/25/16 11:45 05/25/16 13:01 Symbicort 160/4.5mcg - IH 2 puff BID [facility] Administration Digoxin 0.125 mg 05/22/16 10:00 05/25/16 10:04 Lanoxin - PO 0.125 mg Q72H [facility] Administration Daptomycin 350 mg/ Sodium 50 mls @ 100 mls/hr 05/19/16 16:00 05/22/16 16:14 Chloride IVPB 100 mls/hr MoWeFr@1600 [facility] Administration Lorazepam 1 mg 05/25/16 06:19 05/25/16 06:41 Ativan - PO 1 mg Q8H PRN Administration Losartan Potassium 25 mg 05/12/16 10:00 05/25/16 10:02 Cozaar - PO Not Given DAILY [facility] Metoprolol Succinate 50 mg 05/12/16 10:00 05/25/16 10:04 Toprol Xl - PO 50 mg DAILY [facility] Administration Metoprolol Tartrate 2.5 mg 05/11/16 22:54 05/21/16 04:48 Lopressor Injection - IVPUSH 2.5 mg Q4H PRN Administration HR >/= 130 Pantoprazole Sodium 40 mg 05/12/16 10:00 05/25/16 10:02 Protonix - PO 40 mg DAILY [facility] Administration Prednisone 20 mg 05/23/16 11:45 05/25/16 10:02 Deltasone - PO 20 mg BID [facility] Administration Rosuvastatin Calcium 5 mg 05/11/16 22:00 05/24/16 22:02 Crestor - PO 5 mg HS [facility] Administration Sevelamer Carbonate 800 mg 05/12/16 08:00 05/25/16 13:00 Renvela - PO 800 mg TIDCM [facility] Administration Tiotropium [place] 1 puff 05/25/16 12:15 05/25/16 13:01 Spiriva - IH 1 puff DAILY [facility] Administration blood cultures 05/11 neg 05/16 1 of 2 bottles positive 05/18 negative to date Impression 1. ESRD 2. PNA 3. HTN 4. CHF 5. pleural effusion 6. hypothyroidism 7. hyperlipidemia 8. MVP 9. a-fib Plan - spoke to ID, pt needs 2 more doses of dapto - pt tolerated HD today - will call vascular to remove permacath - next HD on Wednesday - monitor on tele - follow up cultures, reviewed daily - 3 hrs, 1000 heparin, 500 maintenance, permacath, hectorol 2 mcg, aranesp 35 weekly, [address] Zuluaga
[2016-05-25] MEDS: DAPTOMYCIN 350 MG in SODIUM CHLORIDE 50 ML IVPB SCH (16:29)
[2016-05-25] MEDS ORDERED: ACETAMINOPHEN 325 MG TABLET (FP) PO PRN (20:47)
--- NOTE | 2016-05-25 20:50 | PN ---
Progress Note, Physician History of Present Illness: BETTER - Current Medication List Current Medications: Active Medications Acetaminophen (Tylenol -) 650 mg PO Q6H PRN PRN Reason: FEVER OR PAIN Albuterol Sulfate (Ventolin 0.083% Nebulizer Soln -) 1 amp NEB Q4H PRN PRN Reason: SHORT OF BREATH/WHEEZING Last Admin: 05/25/16 11:30 Dose: 1 amp Apixaban (Eliquis -) 2.5 mg PO BID [facility] Last Admin: 05/25/16 10:02 Dose: 2.5 mg Aspirin (Asa -) 81 mg PO DAILY [facility] Last Admin: 05/25/16 10:02 Dose: 81 mg Budesonide/Formoterol Fumarate (Symbicort 160/4.5mcg -) 2 puff IH BID [facility] Last Admin: 05/25/16 13:01 Dose: 2 puff Digoxin (Lanoxin -) 0.125 mg PO Q72H [facility] Last Admin: 05/25/16 10:04 Dose: 0.125 mg Daptomycin 350 mg/ Sodium (Chloride) 50 mls @ 100 mls/hr IVPB MoWeFr@1600 [facility] Last Admin: 05/25/16 16:29 Dose: 100 mls/hr Lorazepam (Ativan -) 1 mg PO Q8H PRN Last Admin: 05/25/16 06:41 Dose: 1 mg Losartan Potassium (Cozaar -) 25 mg PO DAILY [facility] Last Admin: 05/25/16 10:02 Dose: Not Given Metoprolol Succinate (Toprol Xl -) 50 mg PO DAILY [facility] Last Admin: 05/25/16 10:04 Dose: 50 mg Metoprolol Tartrate (Lopressor Injection -) 2.5 mg IVPUSH Q4H PRN PRN Reason: HR >/= 130 Last Admin: 05/21/16 04:48 Dose: 2.5 mg Pantoprazole Sodium (Protonix -) 40 mg PO DAILY [facility] Last Admin: 05/25/16 10:02 Dose: 40 mg Prednisone (Deltasone -) 20 mg PO BID [facility] Last Admin: 05/25/16 10:02 Dose: 20 mg Rosuvastatin Calcium (Crestor -) 5 mg PO HS [facility] Last Admin: 05/24/16 22:02 Dose: 5 mg Sevelamer Carbonate (Renvela -) 800 mg PO TIDCM [facility] Last Admin: 02/20/17 18:00 Dose: 800 mg Tiotropium [place] (Spiriva -) 1 puff IH DAILY [facility] Last Admin: 05/25/16 13:01 Dose: 1 puff - Objective Vital Signs: Vital Signs Temperature 97.2 F L 05/25/16 15:39 Pulse Rate 84 05/25/16 15:39 Respiratory Rate 20 05/25/16 15:39 Blood Pressure 120/48 05/25/16 15:39 O2 Sat by Pulse Oximetry (%) 98 05/25/16 11:30 Constitutional: Yes: No Distress HENT: Yes: Atraumatic Neck: Yes: Supple Cardiovascular: Yes: Regular Rate and Rhythm Respiratory: Yes: CTA Bilaterally Gastrointestinal: Yes: Normal Bowel Sounds Extremities: Yes: WNL Neurological: Yes: Alert, Oriented Labs: CBC, BMP 05/22/16 11:10 05/22/16 14:05 INR, PTT INR 1.44 (0.82-1.09) H 05/11/16 09:02 Problem List - Problems (1) ESRD needing dialysis Code(s): N18.6 - END STAGE RENAL DISEASE (2) COPD (chronic obstructive pulmonary disease) Code(s): J44.9 - CHRONIC OBSTRUCTIVE PULMONARY DISEASE, UNSPECIFIED Qualifiers : COPD type: unspecified COPD Qualified Code(s): J44.9 - Chronic obstructive pulmonary disease, unspecified (3) A-fib Qualifiers: Atrial fibrillation type: unspecified Qualified Code(s): I48.91 - Unspecified atrial fibrillation (4) Atrial fibrillation with tachycardic ventricular rate Code(s): I48.91 - UNSPECIFIED ATRIAL FIBRILLATION (5) Defibrillator discharge Code(s): Z45.02 - ENCNTR FOR ADJUST AND MGMT OF AUTOMATIC IMPLNTBL CARD DEFIB (6) Pneumonia Code(s): J18.9 - PNEUMONIA, UNSPECIFIED ORGANISM Qualifiers: Pneumonia type: due to unspecified organism Laterality: unspecified laterality Lung location: unspecified part of lung Qualified Code(s): J18.9 - Pneumonia, unspecified organism (7) Acute on chronic systolic and diastolic heart failure, NYHA class 3 Code(s): I50.43 - ACUTE ON CHRONIC COMBINED SYSTOLIC AND DIASTOLIC HRT FAIL Assessment/Plan Laboratory Tests A/P 1. ESRD ON HD 2. PNA IV ABX BCX...POSITIVE STEROIDS DUO NEBS 3. HTN STABLE ON MEDS 4. CHF 5. pleural effusion 6. hypothyroidism 7. hyperlipidemia 8. MVP 9. a-fib stable previous noted dc planning
[2016-05-25] MEDS ORDERED: PT OWN MED DRAWER 7, Y5N ONE (21:08)
[2016-05-25] MEDS: ROSUVASTATIN CA 5 MG TABLET (FP) PO SCH (21:10)
[2016-05-26] MEDS: SEVELAMER CARBONATE 800 MG TAB (FP) PO SCH ×3 (08:05→18:07)
--- NOTE | 2016-05-26 08:33 | PN ---
Progress Note, Physician Chief Complaint: Pt A&Ox3;OOB in chair. No chest pain or dyspnea; anxious about future transfer to [facility]. History of Present Illness: The patient is an 80 year old white female, with a significant past medical history of anemia, Afib s/p ICD 09/2015 ; on Eliquis, COPD (on home O2 as needed ), systolic (borderline reduced LVEF)/diastolic CHF, HTN, hyperlipidemia, hypothyroidism, ESRD (on dialysis MWF, recent revision on her fistula); anxiety/ depression/panic, and overactive bladder, who presents to the emergency department with shortness of breath since approximately 9PM last night shortly after her defibrillator went off. The patient additionally reports intermittent palpitations and a productive cough that began last weekend. The patient states that she has been coughing up phlegm w/o hemopytsis. The patient reports that she needs to have dialysis today as her most recent dialysis was last Wednesday (05/08/2016). The patient does note that she feels more sob when laying flat, denies any leg swelling. The patient denies any chest pain prior to coming to the ED, but endorsed some CP after initial evaluation. The patient denies fever, chills , nausea, vomiting, diarrhea or melena/bpr. Allergies: None reported. Past Surgical History: Stents x 3, Defibrillator (09/27/2015). Social History: Former smoker (quit 08/2014). Denies alcohol or drug use. PCP: Dr. Swanson Regulator Assembler: Dr. Chris Engineering Analyst: Dr. Lopez - Current Medication List Current Medications: Active Medications Acetaminophen (Tylenol -) 650 mg PO Q6H PRN PRN Reason: FEVER OR PAIN Last Admin: 05/25/16 21:10 Dose: 650 mg Albuterol Sulfate (Ventolin 0.083% Nebulizer Soln -) 1 amp NEB Q4H PRN PRN Reason: SHORT OF BREATH/WHEEZING Last Admin: 05/25/16 11:30 Dose: 1 amp Apixaban (Eliquis -) 2.5 mg PO BID [facility] Last Admin: 05/25/16 21:10 Dose: 2.5 mg Aspirin (Asa -) 81 mg PO DAILY [facility] Last Admin: 05/25/16 10:02 Dose: 81 mg Budesonide/Formoterol Fumarate (Symbicort 160/4.5mcg -) 2 puff IH BID [facility] Last Admin: 05/25/16 21:12 Dose: 2 puff Digoxin (Lanoxin -) 0.125 mg PO Q72H [facility] Last Admin: 05/25/16 10:04 Dose: 0.125 mg Daptomycin 350 mg/ Sodium (Chloride) 50 mls @ 100 mls/hr IVPB MoWeFr@1600 [facility] Last Admin: 05/25/16 16:29 Dose: 100 mls/hr Lorazepam (Ativan -) 1 mg PO Q8H PRN Last Admin: 05/25/16 06:41 Dose: 1 mg Losartan Potassium (Cozaar -) 25 mg PO DAILY [facility] Last Admin: 05/25/16 10:02 Dose: Not Given Metoprolol Succinate (Toprol Xl -) 50 mg PO DAILY [facility] Last Admin: 05/25/16 10:04 Dose: 50 mg Metoprolol Tartrate (Lopressor Injection -) 2.5 mg IVPUSH Q4H PRN PRN Reason: HR >/= 130 Last Admin: 05/21/16 04:48 Dose: 2.5 mg Pantoprazole Sodium (Protonix -) 40 mg PO DAILY [facility] Last Admin: 05/25/16 10:02 Dose: 40 mg Prednisone (Deltasone -) 20 mg PO BID [facility] Last Admin: 05/25/16 21:10 Dose: 20 mg Rosuvastatin Calcium (Crestor -) 5 mg PO HS [facility] Last Admin: 05/25/16 21:10 Dose: 5 mg Sevelamer Carbonate (Renvela -) 800 mg PO TIDCM [facility] Last Admin: 05/25/16 18:00 Dose: 800 mg Tiotropium [place] (Spiriva -) 1 puff IH DAILY [facility] Last Admin: 05/25/16 13:01 Dose: 1 puff - Objective Vital Signs: Vital Signs Temperature 97.7 F 05/26/16 06:00 Pulse Rate 72 05/26/16 06:00 Respiratory Rate 20 05/26/16 06:00 Blood Pressure 123/43 05/26/16 06:00 O2 Sat by Pulse Oximetry (%) 96 05/25/16 21:00 Constitutional: Yes: Anxious Eyes: Yes: WNL HENT: Yes: WNL Neck: Yes: WNL Cardiovascular: Yes: Pulse Irregular Respiratory: Yes: Regular Gastrointestinal: Yes: Soft ...Rectal Exam: Yes: Deferred Genitourinary: No: Anuria Breast(s): Yes: WNL Musculoskeletal: Yes: Muscle Weakness Extremities: Yes: Cool Edema: No Peripheral Pulses WNL: No Peripheral Pulses: Left Doralis Pedis: 1+, Right Dorsalis Pedis: 1+ Wound/Incision: Yes: Other (left UE AV graft) Neurological: Yes: Alert, Oriented, Weakness Psychiatric: Yes: Alert, Oriented, Other (anxiety/depression) Labs: CBC, BMP 05/22/16 11:10 05/22/16 14:05 INR, PTT INR 1.44 (0.82-1.09) H 05/11/16 09:02 - ....Imaging Other: Image Reviewed (telemetry: AF; controlled VR) Problem List - Problems (1) COPD (chronic obstructive pulmonary disease) Assessment/Plan: bronchodilators: pt feels better with treatments. Steroids and O2 per microfilm clerk. Code(s): J44.9 - CHRONIC OBSTRUCTIVE PULMONARY DISEASE, UNSPECIFIED Qualifiers : COPD type: unspecified COPD Qualified Code(s): J44.9 - Chronic obstructive pulmonary disease, unspecified (2) A-fib Assessment/Plan: Telemetry: NSR; periods of AF now with well-controlled HR since adding digoxin to metoprolol. On apixaban for AC; on ASA (hx CAD). F/u electrolytes. Continue metoprolol ER; consider increase in dose if rapid HR refractory to addition of digoxin, and if BP allows. Qualifiers: Atrial fibrillation type: unspecified Qualified Code(s): I48.91 - Unspecified atrial fibrillation (3) Acute on chronic systolic and diastolic heart failure, NYHA class 3 Assessment/Plan: On losartan and metoprolol ER. Digoxin loaded; HR better-controlled now. Keep digoxin level 0.5-1.0. Start 0.125 mg q 72 hours. F/u electrolytes. Code(s): I50.43 - ACUTE ON CHRONIC COMBINED SYSTOLIC AND DIASTOLIC HRT FAIL (4) Bleeding from dialysis shunt Code(s): T82.838A - HEMORRHAGE DUE TO VASCULAR PROSTH DEV/GRFT, INIT Qualifiers: Encounter type: initial encounter Qualified Code(s): T82.838A - Hemorrhage of vascular prosthetic devices, implants and grafts, initial encounter (6) HTN (hypertension) Code(s): I10 - ESSENTIAL (PRIMARY) HYPERTENSION Qualifiers: Hypertension type: essential hypertension Qualified Code(s): I10 - Essential (primary) hypertension (7) Hyperlipidemia Code(s): E78.5 - HYPERLIPIDEMIA, UNSPECIFIED (8) Palpitations Code(s): R00.2 - PALPITATIONS (9) Shortness of breath Code(s): R06.02 - SHORTNESS OF BREATH (10) Status post coronary artery stent placement Code(s): Z95.5 - PRESENCE OF CORONARY ANGIOPLASTY IMPLANT AND GRAFT (11) Panic anxiety syndrome Code(s): F41.0 - PANIC DISORDER WITHOUT AGORAPHOBIA (12) Defibrillator discharge Code(s): Z45.02 - ENCNTR FOR ADJUST AND MGMT OF AUTOMATIC IMPLNTBL CARD DEFIB
[2016-05-26] MEDS: predniSONE 20 MG TABLET (UD) PO SCH ×2 (09:24→22:12)
[2016-05-26] MEDS: LOSARTAN POTASSIUM 25 MG TABLET PO SCH (09:24)
[2016-05-26] MEDS: ASPIRIN 81 MG CHEWABLE TABLETS PO SCH (09:24)
[2016-05-26] MEDS: PANTOPRAZOLE 40 MG TABLET (FP) PO SCH (09:25)
[2016-05-26] MEDS: METOPROLOL SUCCINATE 50 MG TAB.SR.24H (FP) PO SCH (09:25)
[2016-05-26] MEDS: APIXABAN 2.5 MG TABLET PO SCH ×2 (09:25→22:12)
[2016-05-26] MEDS: TIOTROPIUM BROMIDE 18 MCG/INH (DEVICE W/ 5 CAPSULES) IH SCH (09:27)
[2016-05-26] MEDS: BUDESONIDE/FORMETEROL FUMARATE 160/4.5 mcg INHALER IH SCH ×2 (09:27→22:12)
[2016-05-26] MEDS: ALBUTEROL SO4 0.083% IH SOL 2.5 MG/3 ML VIAL.NEB. NEB PRN ×3 (10:25→21:22)
--- NOTE | 2016-05-26 11:27 | PN ---
Progress Note, Physician History of Present Illness: pulmonary alert,nad,-sob,cp,-cough - Current Medication List Current Medications: Active Medications Acetaminophen (Tylenol -) 650 mg PO Q6H PRN PRN Reason: FEVER OR PAIN Last Admin: 05/25/16 21:10 Dose: 650 mg Albuterol Sulfate (Ventolin 0.083% Nebulizer Soln -) 1 amp NEB Q4H PRN PRN Reason: SHORT OF BREATH/WHEEZING Last Admin: 05/26/16 10:25 Dose: 1 amp Apixaban (Eliquis -) 2.5 mg PO BID [facility] Last Admin: 05/26/16 09:25 Dose: 2.5 mg Aspirin (Asa -) 81 mg PO DAILY [facility] Last Admin: 05/26/16 09:24 Dose: 81 mg Budesonide/Formoterol Fumarate (Symbicort 160/4.5mcg -) 2 puff IH BID [facility] Last Admin: 05/26/16 09:27 Dose: 2 puff Digoxin (Lanoxin -) 0.125 mg PO Q72H [facility] Last Admin: 05/25/16 10:04 Dose: 0.125 mg Daptomycin 350 mg/ Sodium (Chloride) 50 mls @ 100 mls/hr IVPB MoWeFr@1600 [facility] Last Admin: 05/25/16 16:29 Dose: 100 mls/hr Lorazepam (Ativan -) 1 mg PO Q8H PRN Last Admin: 05/25/16 06:41 Dose: 1 mg Losartan Potassium (Cozaar -) 25 mg PO DAILY [facility] Last Admin: 05/26/16 09:24 Dose: 25 mg Metoprolol Succinate (Toprol Xl -) 50 mg PO DAILY [facility] Last Admin: 05/26/16 09:25 Dose: 50 mg Metoprolol Tartrate (Lopressor Injection -) 2.5 mg IVPUSH Q4H PRN PRN Reason: HR >/= 130 Last Admin: 05/21/16 04:48 Dose: 2.5 mg Pantoprazole Sodium (Protonix -) 40 mg PO DAILY [facility] Last Admin: 05/26/16 09:25 Dose: 40 mg Prednisone (Deltasone -) 20 mg PO BID [facility] Last Admin: 05/26/16 09:24 Dose: 20 mg Rosuvastatin Calcium (Crestor -) 5 mg PO HS [facility] Last Admin: 05/25/16 21:10 Dose: 5 mg Sevelamer Carbonate (Renvela -) 800 mg PO TIDCM [facility] Last Admin: 05/26/16 08:05 Dose: 800 mg Tiotropium [place] (Spiriva -) 1 puff IH DAILY [facility] Last Admin: 05/26/16 09:27 Dose: 1 puff - Objective Vital Signs: Vital Signs Temperature 98.4 F 05/26/16 10:00 Pulse Rate 78 05/26/16 10:20 Respiratory Rate 20 05/26/16 10:00 Blood Pressure 140/53 05/26/16 10:00 O2 Sat by Pulse Oximetry (%) 97 05/26/16 10:20 Constitutional: Yes: Well Nourished, Calm Eyes: Yes: WNL HENT: Yes: WNL Neck: Yes: WNL Cardiovascular: Yes: Pulse Irregular, S1, S2 Respiratory: Yes: Diminished Gastrointestinal: Yes: Normal Bowel Sounds, Soft Extremities: Yes: WNL Edema: No Labs: CBC, BMP 05/22/16 11:10 05/22/16 14:05 INR, PTT INR 1.44 (0.82-1.09) H 05/11/16 09:02 Assessment/Plan Problem List - Problems (1) COPD exacerbation Code(s): J44.1 - CHRONIC OBSTRUCTIVE PULMONARY DISEASE W (ACUTE) EXACERBATION (2) ESRD needing dialysis Code(s): N18.6 - END STAGE RENAL DISEASE (3) A-fib Qualifiers: Atrial fibrillation type: unspecified Qualified Code(s): I48.91 - Unspecified atrial fibrillation (4) Chronic systolic (congestive) heart failure Code(s): I50.22 - CHRONIC SYSTOLIC (CONGESTIVE) HEART FAILURE (5) Pleural effusion Code(s): J90 - PLEURAL EFFUSION, NOT ELSEWHERE CLASSIFIED (6) Bacteremia Code(s): R78.81 - BACTEREMIA Assessment/Plan Acute COPD Exacerbation improving ESRD on HD VRE Bacteremia LV Systolic Dysfunction Pleural Effusion - prednisone - inhaled bronchodilators - O2 to keep SpO2 >90% - symbicort and spiriva - antibiotics per ID - rate control - continue anticoagulation DR AGUIRRE
--- NOTE | 2016-05-26 11:28 | PN ---
Progress Note (short form) - Note Progress Note: Vascular surgery- Dr. Mcnamara Last Vital Signs Temp Pulse Resp BP Pulse Ox 98.4 F 78 20 140/53 97 05/26/16 10:00 05/26/16 10:20 05/26/16 10:00 05/26/16 10:00 05/26/16 10:[address] Mcnamara for removal of Permacath. Consent obtained. 6 cc Lidocaine 1% administered and Permacath removed intact without issue. Patient will continue with HD via left UE AVG.
--- NOTE | 2016-05-26 14:08 | PN ---
Progress Note, Physician History of Present Illness: Pt seen and examined at bedside. She is awake and alert. The permacath was removed. - Current Medication List Current Medications: Active Medications Acetaminophen (Tylenol -) 650 mg PO Q6H PRN PRN Reason: FEVER OR PAIN Last Admin: 05/25/16 21:10 Dose: 650 mg Albuterol Sulfate (Ventolin 0.083% Nebulizer Soln -) 1 amp NEB Q4H PRN PRN Reason: SHORT OF BREATH/WHEEZING Last Admin: 05/26/16 10:25 Dose: 1 amp Apixaban (Eliquis -) 2.5 mg PO BID [facility] Last Admin: 05/26/16 09:25 Dose: 2.5 mg Aspirin (Asa -) 81 mg PO DAILY [facility] Last Admin: 05/26/16 09:24 Dose: 81 mg Budesonide/Formoterol Fumarate (Symbicort 160/4.5mcg -) 2 puff IH BID [facility] Last Admin: 05/26/16 09:27 Dose: 2 puff Digoxin (Lanoxin -) 0.125 mg PO Q72H [facility] Last Admin: 05/25/16 10:04 Dose: 0.125 mg Daptomycin 350 mg/ Sodium (Chloride) 50 mls @ 100 mls/hr IVPB MoWeFr@1600 [facility] Last Admin: 05/25/16 16:29 Dose: 100 mls/hr Lorazepam (Ativan -) 1 mg PO Q8H PRN Last Admin: 05/25/16 06:41 Dose: 1 mg Losartan Potassium (Cozaar -) 25 mg PO DAILY [facility] Last Admin: 05/26/16 09:24 Dose: 25 mg Metoprolol Succinate (Toprol Xl -) 50 mg PO DAILY [facility] Last Admin: 05/26/16 09:25 Dose: 50 mg Metoprolol Tartrate (Lopressor Injection -) 2.5 mg IVPUSH Q4H PRN PRN Reason: HR >/= 130 Last Admin: 05/21/16 04:48 Dose: 2.5 mg Pantoprazole Sodium (Protonix -) 40 mg PO DAILY [facility] Last Admin: 05/26/16 09:25 Dose: 40 mg Prednisone (Deltasone -) 20 mg PO BID [facility] Last Admin: 05/26/16 09:24 Dose: 20 mg Rosuvastatin Calcium (Crestor -) 5 mg PO HS [facility] Last Admin: 05/25/16 21:10 Dose: 5 mg Sevelamer Carbonate (Renvela -) 800 mg PO TIDCM [facility] Last Admin: 05/26/16 12:42 Dose: 800 mg Tiotropium [place] (Spiriva -) 1 puff IH DAILY [facility] Last Admin: 05/26/16 09:27 Dose: 1 puff - Objective Vital Signs: Vital Signs Temperature 98.4 F 05/26/16 10:00 Pulse Rate 78 05/26/16 10:20 Respiratory Rate 20 05/26/16 10:00 Blood Pressure 140/53 05/26/16 10:00 O2 Sat by Pulse Oximetry (%) 97 05/26/16 10:20 Constitutional: Yes: Calm Eyes: Yes: Conjunctiva Clear HENT: Yes: Atraumatic Neck: Yes: Supple Cardiovascular: Yes: S1, S2 Respiratory: Yes: CTA Bilaterally, On Nasal O2 Gastrointestinal: Yes: Soft Genitourinary: Yes: WNL Musculoskeletal: Yes: WNL Extremities: Yes: Other (graft with thrill and bruit) Edema: No Neurological: Yes: Oriented Psychiatric: Yes: Oriented Labs: CBC, BMP 05/22/16 11:10 05/22/16 14:05 INR, PTT INR 1.44 (0.82-1.09) H 05/11/16 09:02 Problem List - Problems (1) Defibrillator discharge Code(s): Z45.02 - ENCNTR FOR ADJUST AND MGMT OF AUTOMATIC IMPLNTBL CARD DEFIB (2) ESRD needing dialysis Code(s): N18.6 - END STAGE RENAL DISEASE (3) Panic anxiety syndrome Code(s): F41.0 - PANIC DISORDER WITHOUT AGORAPHOBIA (4) Pneumonia Code(s): J18.9 - PNEUMONIA, UNSPECIFIED ORGANISM Qualifiers: Pneumonia type: due to unspecified organism Laterality: unspecified laterality Lung location: unspecified part of lung Qualified Code(s): J18.9 - Pneumonia, unspecified organism (5) COPD (chronic obstructive pulmonary disease) Code(s): J44.9 - CHRONIC OBSTRUCTIVE PULMONARY DISEASE, UNSPECIFIED Qualifiers : COPD type: unspecified COPD Qualified Code(s): J44.9 - Chronic obstructive pulmonary disease, unspecified (6) A-fib Qualifiers: Atrial fibrillation type: unspecified Qualified Code(s): I48.91 - Unspecified atrial fibrillation (7) CHF (congestive heart failure) Code(s): I50.9 - HEART FAILURE, UNSPECIFIED Qualifiers: Congestive heart failure type: unspecified congestive heart failure type Congestive heart failure chronicity: unspecified congestive heart failure chronicity Qualified Code(s): I50.9 - Heart failure, unspecified (8) Cough Code(s): R05 - COUGH Assessment/Plan Current Medications Generic Name Dose Route Start Last Admin Trade Name Freq PRN Reason Stop Dose Admin Acetaminophen 650 mg 05/25/16 20:47 05/25/16 21:10 Tylenol - PO 650 mg Q6H PRN Administration FEVER OR PAIN Albuterol Sulfate 1 amp 05/21/16 16:35 05/26/16 10:25 Ventolin 0.083% Nebulizer Soln - NEB 1 amp Q4H PRN Administration SHORT OF BREATH/WHEEZING Apixaban 2.5 mg 05/11/16 22:00 05/26/16 09:25 Eliquis - PO 2.5 mg BID [facility] Administration Aspirin 81 mg 05/12/16 10:00 05/26/16 09:24 Asa - PO 81 mg DAILY [facility] Administration Budesonide/Formoterol Fumarate 2 puff 05/25/16 11:45 05/26/16 09:27 Symbicort 160/4.5mcg - IH 2 puff BID [facility] Administration Digoxin 0.125 mg 05/22/16 10:00 05/25/16 10:04 Lanoxin - PO 0.125 mg Q72H [facility] Administration Daptomycin 350 mg/ Sodium 50 mls @ 100 mls/hr 05/19/16 16:00 05/25/16 16:29 Chloride IVPB 100 mls/hr MoWeFr@1600 [facility] Administration Lorazepam 1 mg 05/25/16 06:19 05/25/16 06:41 Ativan - PO 1 mg Q8H PRN Administration Losartan Potassium 25 mg 05/12/16 10:00 05/26/16 09:24 Cozaar - PO 25 mg DAILY [facility] Administration Metoprolol Succinate 50 mg 05/12/16 10:00 05/26/16 09:25 Toprol Xl - PO 50 mg DAILY [facility] Administration Metoprolol Tartrate 2.5 mg 05/11/16 22:54 05/21/16 04:48 Lopressor Injection - IVPUSH 2.5 mg Q4H PRN Administration HR >/= 130 Pantoprazole Sodium 40 mg 05/12/16 10:00 05/26/16 09:25 Protonix - PO 40 mg DAILY [facility] Administration Prednisone 20 mg 05/23/16 11:45 05/26/16 09:24 Deltasone - PO 20 mg BID [facility] Administration Rosuvastatin Calcium 5 mg 05/11/16 22:00 05/25/16 21:10 Crestor - PO 5 mg HS [facility] Administration Sevelamer Carbonate 800 mg 05/12/16 08:00 05/26/16 12:42 Renvela - PO 800 mg TIDCM [facility] Administration Tiotropium [place] 1 puff 05/25/16 12:15 05/26/16 09:27 Spiriva - IH 1 puff DAILY [facility] Administration blood cultures 05/11 neg 05/16 1 of 2 bottles positive 05/18 negative to date Impression 1. ESRD 2. PNA 3. HTN 4. CHF 5. pleural effusion 6. hypothyroidism 7. hyperlipidemia 8. MVP 9. a-fib Plan - permacath removed today - HD in am - cont abx per ID, last day is on Wednesday - lidocaine jelly to access before HD - monitor on tele - follow up cultures, reviewed daily - 3 hrs, 1000 heparin, 500 maintenance, permacath, hectorol 2 mcg, aranesp 35 weekly, [address] Zuluaga
--- NOTE | 2016-05-26 14:51 | PN ---
Progress Note, Physician History of Present Illness: stable no new issues dialysis shiley removed using the graft now - Current Medication List Current Medications: Active Medications Acetaminophen (Tylenol -) 650 mg PO Q6H PRN PRN Reason: FEVER OR PAIN Last Admin: 05/25/16 21:10 Dose: 650 mg Albuterol Sulfate (Ventolin 0.083% Nebulizer Soln -) 1 amp NEB Q4H PRN PRN Reason: SHORT OF BREATH/WHEEZING Last Admin: 05/26/16 10:25 Dose: 1 amp Apixaban (Eliquis -) 2.5 mg PO BID [facility] Last Admin: 05/26/16 09:25 Dose: 2.5 mg Aspirin (Asa -) 81 mg PO DAILY [facility] Last Admin: 05/26/16 09:24 Dose: 81 mg Budesonide/Formoterol Fumarate (Symbicort 160/4.5mcg -) 2 puff IH BID [facility] Last Admin: 05/26/16 09:27 Dose: 2 puff Digoxin (Lanoxin -) 0.125 mg PO Q72H [facility] Last Admin: 05/25/16 10:04 Dose: 0.125 mg Epoetin [place] (Epogen -) 7,000 units IVPUSH ONCE ONE Stop: 05/27/16 14:12 Heparin Sodium (Porcine) (Heparin -) 1,000 unit IVPUSH ONCE ONE Stop: 05/27/16 14:12 Daptomycin 350 mg/ Sodium (Chloride) 50 mls @ 100 mls/hr IVPB MoWeFr@1600 [facility] Last Admin: 05/25/16 16:29 Dose: 100 mls/hr Lidocaine HCl (Xylocaine 2% Jelly) 1 applic TP Q48H [facility] Lorazepam (Ativan -) 1 mg PO Q8H PRN Last Admin: 05/25/16 06:41 Dose: 1 mg Losartan Potassium (Cozaar -) 25 mg PO DAILY [facility] Last Admin: 05/26/16 09:24 Dose: 25 mg Metoprolol Succinate (Toprol Xl -) 50 mg PO DAILY [facility] Last Admin: 05/26/16 09:25 Dose: 50 mg Metoprolol Tartrate (Lopressor Injection -) 2.5 mg IVPUSH Q4H PRN PRN Reason: HR >/= 130 Last Admin: 05/21/16 04:48 Dose: 2.5 mg Pantoprazole Sodium (Protonix -) 40 mg PO DAILY [facility] Last Admin: 05/26/16 09:25 Dose: 40 mg Prednisone (Deltasone -) 20 mg PO BID [facility] Last Admin: 05/26/16 09:24 Dose: 20 mg Rosuvastatin Calcium (Crestor -) 5 mg PO HS [facility] Last Admin: 05/25/16 21:10 Dose: 5 mg Sevelamer Carbonate (Renvela -) 800 mg PO TIDCM [facility] Last Admin: 05/26/16 12:42 Dose: 800 mg Tiotropium [place] (Spiriva -) 1 puff IH DAILY [facility] Last Admin: 05/26/16 09:27 Dose: 1 puff - Objective Vital Signs: Vital Signs Temperature 98.4 F 05/26/16 10:00 Pulse Rate 78 05/26/16 10:20 Respiratory Rate 20 05/26/16 10:00 Blood Pressure 140/53 05/26/16 10:00 O2 Sat by Pulse Oximetry (%) 97 05/26/16 10:20 Constitutional: Yes: No Distress, Calm Cardiovascular: Yes: Regular Rate and Rhythm Respiratory: Yes: Regular, Poor Air Entry Gastrointestinal: Yes: Normal Bowel Sounds, Soft Musculoskeletal: Yes: WNL Extremities: Yes: WNL Neurological: Yes: Alert, Oriented Psychiatric: Yes: Alert Labs: CBC, BMP 05/22/16 11:10 05/22/16 14:05 INR, PTT INR 1.44 (0.82-1.09) H 05/11/16 09:02 Assessment/Plan patient evaluated and findings noted,patient is an immunocompromised patient patient is showing infiltrate in the lung which i think is pneumonia as she also ahs greenish sputum production Problem List - Problems (1) COPD (chronic obstructive pulmonary disease) Code(s): J44.9 - CHRONIC OBSTRUCTIVE PULMONARY DISEASE, UNSPECIFIED Qualifiers : COPD type: unspecified COPD Qualified Code(s): J44.9 - Chronic obstructive pulmonary disease, unspecified (2) A-fib Qualifiers: Atrial fibrillation type: unspecified Qualified Code(s): I48.91 - Unspecified atrial fibrillation (3) Acute on chronic systolic and diastolic heart failure, NYHA class 3 Code(s): I50.43 - ACUTE ON CHRONIC COMBINED SYSTOLIC AND DIASTOLIC HRT FAIL (4) Bleeding from dialysis shunt Code(s): T82.838A - HEMORRHAGE DUE TO VASCULAR PROSTH DEV/GRFT, INIT Qualifiers: Encounter type: initial encounter Qualified Code(s): T82.838A - Hemorrhage of vascular prosthetic devices, implants and grafts, initial encounter (5) Cough Code(s): R05 - COUGH (8) HTN (hypertension) Code(s): I10 - ESSENTIAL (PRIMARY) HYPERTENSION Qualifiers: Hypertension type: essential hypertension Qualified Code(s): I10 - Essential (primary) hypertension (9) Hyperlipidemia Code(s): E78.5 - HYPERLIPIDEMIA, UNSPECIFIED (10) Palpitations Code(s): R00.2 - PALPITATIONS (11) Paroxysmal atrial fibrillation Code(s): I48.0 - PAROXYSMAL ATRIAL FIBRILLATION (12) Shortness of breath Code(s): R06.02 - SHORTNESS OF BREATH (13) Anxiety and depression Code(s): F41.9 - ANXIETY DISORDER, UNSPECIFIED F32.9 - MAJOR DEPRESSIVE DISORDER, SINGLE EPISODE, UNSPECIFIED (14) Status post coronary artery stent placement Code(s): Z95.5 - PRESENCE OF CORONARY ANGIOPLASTY IMPLANT AND GRAFT (15) Panic anxiety syndrome Code(s): F41.0 - PANIC DISORDER WITHOUT AGORAPHOBIA pneumonia bacteremia gm positive plan after fridays dose patient does not need any more abx continue to monitor
--- NOTE | 2016-05-26 17:54 | PN ---
Progress Note, Physician History of Present Illness: BETTER - Current Medication List Current Medications: Active Medications Acetaminophen (Tylenol -) 650 mg PO Q6H PRN PRN Reason: FEVER OR PAIN Last Admin: 05/25/16 21:10 Dose: 650 mg Albuterol Sulfate (Ventolin 0.083% Nebulizer Soln -) 1 amp NEB Q4H PRN PRN Reason: SHORT OF BREATH/WHEEZING Last Admin: 05/26/16 10:25 Dose: 1 amp Apixaban (Eliquis -) 2.5 mg PO BID [facility] Last Admin: 05/26/16 09:25 Dose: 2.5 mg Aspirin (Asa -) 81 mg PO DAILY [facility] Last Admin: 05/26/16 09:24 Dose: 81 mg Budesonide/Formoterol Fumarate (Symbicort 160/4.5mcg -) 2 puff IH BID [facility] Last Admin: 05/26/16 09:27 Dose: 2 puff Digoxin (Lanoxin -) 0.125 mg PO Q72H [facility] Last Admin: 05/25/16 10:04 Dose: 0.125 mg Epoetin [place] (Epogen -) 7,000 units IVPUSH ONCE ONE Stop: 05/27/16 14:12 Heparin Sodium (Porcine) (Heparin -) 1,000 unit IVPUSH ONCE ONE Stop: 05/27/16 14:12 Daptomycin 350 mg/ Sodium (Chloride) 50 mls @ 100 mls/hr IVPB MoWeFr@1600 [facility] Last Admin: 05/25/16 16:29 Dose: 100 mls/hr Lidocaine HCl (Xylocaine 2% Jelly) 1 applic TP Q48H [facility] Lorazepam (Ativan -) 1 mg PO Q8H PRN Last Admin: 05/25/16 06:41 Dose: 1 mg Losartan Potassium (Cozaar -) 25 mg PO DAILY [facility] Last Admin: 05/26/16 09:24 Dose: 25 mg Metoprolol Succinate (Toprol Xl -) 50 mg PO DAILY [facility] Last Admin: 05/26/16 09:25 Dose: 50 mg Metoprolol Tartrate (Lopressor Injection -) 2.5 mg IVPUSH Q4H PRN PRN Reason: HR >/= 130 Last Admin: 05/21/16 04:48 Dose: 2.5 mg Pantoprazole Sodium (Protonix -) 40 mg PO DAILY [facility] Last Admin: 05/26/16 09:25 Dose: 40 mg Prednisone (Deltasone -) 20 mg PO BID [facility] Last Admin: 05/26/16 09:24 Dose: 20 mg Rosuvastatin Calcium (Crestor -) 5 mg PO HS [facility] Last Admin: 05/25/16 21:10 Dose: 5 mg Sevelamer Carbonate (Renvela -) 800 mg PO TIDCM [facility] Last Admin: 05/26/16 12:42 Dose: 800 mg Tiotropium [place] (Spiriva -) 1 puff IH DAILY [facility] Last Admin: 05/26/16 09:27 Dose: 1 puff - Objective Vital Signs: Vital Signs Temperature 98.0 F 05/26/16 14:35 Pulse Rate 74 05/26/16 14:35 Respiratory Rate 18 05/26/16 14:35 Blood Pressure 97/68 05/26/16 14:35 O2 Sat by Pulse Oximetry (%) 97 05/26/16 10:20 Constitutional: Yes: No Distress HENT: Yes: Atraumatic Neck: Yes: Supple Cardiovascular: Yes: Regular Rate and Rhythm Respiratory: Yes: CTA Bilaterally Gastrointestinal: Yes: Normal Bowel Sounds Extremities: Yes: WNL Neurological: Yes: Alert, Oriented Labs: CBC, BMP 05/22/16 11:10 05/22/16 14:05 INR, PTT INR 1.44 (0.82-1.09) H 05/11/16 09:02 Problem List - Problems (1) ESRD needing dialysis Code(s): N18.6 - END STAGE RENAL DISEASE (2) COPD (chronic obstructive pulmonary disease) Code(s): J44.9 - CHRONIC OBSTRUCTIVE PULMONARY DISEASE, UNSPECIFIED Qualifiers : COPD type: unspecified COPD Qualified Code(s): J44.9 - Chronic obstructive pulmonary disease, unspecified (3) A-fib Qualifiers: Atrial fibrillation type: unspecified Qualified Code(s): I48.91 - Unspecified atrial fibrillation (4) Atrial fibrillation with tachycardic ventricular rate Code(s): I48.91 - UNSPECIFIED ATRIAL FIBRILLATION (5) Defibrillator discharge Code(s): Z45.02 - ENCNTR FOR ADJUST AND MGMT OF AUTOMATIC IMPLNTBL CARD DEFIB (6) Pneumonia Code(s): J18.9 - PNEUMONIA, UNSPECIFIED ORGANISM Qualifiers: Pneumonia type: due to unspecified organism Laterality: unspecified laterality Lung location: unspecified part of lung Qualified Code(s): J18.9 - Pneumonia, unspecified organism (7) Acute on chronic systolic and diastolic heart failure, NYHA class 3 Code(s): I50.43 - ACUTE ON CHRONIC COMBINED SYSTOLIC AND DIASTOLIC HRT FAIL Assessment/Plan Laboratory Tests A/P 1. ESRD ON HD 2. PNA IV ABX BCX...POSITIVE STEROIDS DUO NEBS 3. HTN STABLE ON MEDS 4. CHF 5. pleural effusion 6. hypothyroidism 7. hyperlipidemia 8. MVP 9. a-fib stable previous noted dc on wednesday after abx dose
[2016-05-26] MEDS: LORazepam 1 MG TABLET PO PRN (22:12)
[2016-05-26] MEDS: ROSUVASTATIN CA 5 MG TABLET (FP) PO SCH (22:12)
[2016-05-27] MEDS: SEVELAMER CARBONATE 800 MG TAB (FP) PO SCH ×3 (07:46→17:36)
[2016-05-27] MEDS: LORazepam 1 MG TABLET PO PRN (09:44)
[2016-05-27] MEDS ORDERED: EPOETIN ALFA 2,000 UNITS/1 ML VIAL IVPUSH ONE (10:30)
[2016-05-27] MEDS ORDERED: LIDOCAINE HCL 2% JELLY (30 ML/TUBE) TP SCH (10:45)
[2016-05-27] MEDS ORDERED: HEPARIN NA (PORCINE) 5,000 UNITS/ML 1ML VIAL IVPUSH ONE (10:45)
--- NOTE | 2016-05-27 11:22 | PN ---
Progress Note, Physician History of Present Illness: pulmonary alert,nad,-sob,-cp. pt currently on dialysis - Current Medication List Current Medications: Active Medications Acetaminophen (Tylenol -) 650 mg PO Q6H PRN PRN Reason: FEVER OR PAIN Last Admin: 05/25/16 21:10 Dose: 650 mg Albuterol Sulfate (Ventolin 0.083% Nebulizer Soln -) 1 amp NEB Q4H PRN PRN Reason: SHORT OF BREATH/WHEEZING Last Admin: 05/26/16 21:22 Dose: 1 amp Apixaban (Eliquis -) 2.5 mg PO BID [facility] Last Admin: 05/26/16 22:12 Dose: 2.5 mg Aspirin (Asa -) 81 mg PO DAILY [facility] Last Admin: 05/26/16 09:24 Dose: 81 mg Budesonide/Formoterol Fumarate (Symbicort 160/4.5mcg -) 2 puff IH BID [facility] Last Admin: 05/26/16 22:12 Dose: 2 puff Digoxin (Lanoxin -) 0.125 mg PO Q72H [facility] Last Admin: 05/25/16 10:04 Dose: 0.125 mg Daptomycin 350 mg/ Sodium (Chloride) 50 mls @ 100 mls/hr IVPB MoWeFr@1600 [facility] Last Admin: 05/25/16 16:29 Dose: 100 mls/hr Lidocaine HCl (Xylocaine 2% Jelly) 1 applic TP MoWeFr [facility] Lorazepam (Ativan -) 1 mg PO Q8H PRN Last Admin: 05/27/16 09:44 Dose: 1 mg Losartan Potassium (Cozaar -) 25 mg PO DAILY [facility] Last Admin: 05/26/16 09:24 Dose: 25 mg Metoprolol Succinate (Toprol Xl -) 50 mg PO DAILY [facility] Last Admin: 05/26/16 09:25 Dose: 50 mg Metoprolol Tartrate (Lopressor Injection -) 2.5 mg IVPUSH Q4H PRN PRN Reason: HR >/= 130 Last Admin: 05/21/16 04:48 Dose: 2.5 mg Pantoprazole Sodium (Protonix -) 40 mg PO DAILY [facility] Last Admin: 05/26/16 09:25 Dose: 40 mg Prednisone (Deltasone -) 20 mg PO BID [facility] Last Admin: 05/26/16 22:12 Dose: 20 mg Rosuvastatin Calcium (Crestor -) 5 mg PO HS [facility] Last Admin: 05/26/16 22:12 Dose: 5 mg Sevelamer Carbonate (Renvela -) 800 mg PO TIDCM [facility] Last Admin: 05/27/16 07:46 Dose: Not Given Tiotropium [place] (Spiriva -) 1 puff IH DAILY [facility] Last Admin: 05/26/16 09:27 Dose: 1 puff - Objective Vital Signs: Vital Signs Temperature 98.6 F 05/27/16 10:10 Pulse Rate 59 L 05/27/16 10:45 Respiratory Rate 18 05/27/16 10:45 Blood Pressure 98/47 05/27/16 10:45 O2 Sat by Pulse Oximetry (%) 96 05/26/16 21:00 Constitutional: Yes: Well Nourished, Calm Eyes: Yes: WNL HENT: Yes: WNL Neck: Yes: WNL Cardiovascular: Yes: Pulse Irregular, S1, S2 Respiratory: Yes: Diminished Gastrointestinal: Yes: WNL Extremities: Yes: WNL Edema: No Labs: CBC, BMP 05/22/16 11:10 05/22/16 14:05 INR, PTT INR 1.44 (0.82-1.09) H 05/11/16 09:02 Assessment/Plan Problem List - Problems (1) COPD exacerbation Code(s): J44.1 - CHRONIC OBSTRUCTIVE PULMONARY DISEASE W (ACUTE) EXACERBATION (2) ESRD needing dialysis Code(s): N18.6 - END STAGE RENAL DISEASE (3) A-fib Qualifiers: Atrial fibrillation type: unspecified Qualified Code(s): I48.91 - Unspecified atrial fibrillation (4) Chronic systolic (congestive) heart failure Code(s): I50.22 - CHRONIC SYSTOLIC (CONGESTIVE) HEART FAILURE (5) Pleural effusion Code(s): J90 - PLEURAL EFFUSION, NOT ELSEWHERE CLASSIFIED (6) Bacteremia Code(s): R78.81 - BACTEREMIA Assessment/Plan Acute COPD Exacerbation improving ESRD on HD VRE Bacteremia LV Systolic Dysfunction Pleural Effusion - prednisone - inhaled bronchodilators - O2 to keep SpO2 >90% - symbicort and spiriva - antibiotics per ID - rate control - continue anticoagulation - chest x-ray today DR AGUIRRE
--- NOTE | 2016-05-27 11:48 | PN ---
Progress Note, Physician History of Present Illness: Pt seen and examined at bedside. She is currently getting HD. - Current Medication List Current Medications: Active Medications Acetaminophen (Tylenol -) 650 mg PO Q6H PRN PRN Reason: FEVER OR PAIN Last Admin: 05/25/16 21:10 Dose: 650 mg Albuterol Sulfate (Ventolin 0.083% Nebulizer Soln -) 1 amp NEB Q4H PRN PRN Reason: SHORT OF BREATH/WHEEZING Last Admin: 05/26/16 21:22 Dose: 1 amp Apixaban (Eliquis -) 2.5 mg PO BID [facility] Last Admin: 05/26/16 22:12 Dose: 2.5 mg Aspirin (Asa -) 81 mg PO DAILY [facility] Last Admin: 05/26/16 09:24 Dose: 81 mg Budesonide/Formoterol Fumarate (Symbicort 160/4.5mcg -) 2 puff IH BID [facility] Last Admin: 05/26/16 22:12 Dose: 2 puff Digoxin (Lanoxin -) 0.125 mg PO Q72H [facility] Last Admin: 05/25/16 10:04 Dose: 0.125 mg Daptomycin 350 mg/ Sodium (Chloride) 50 mls @ 100 mls/hr IVPB MoWeFr@1600 [facility] Last Admin: 05/25/16 16:29 Dose: 100 mls/hr Lidocaine HCl (Xylocaine 2% Jelly) 1 applic TP MoWeFr [facility] Lorazepam (Ativan -) 1 mg PO Q8H PRN Last Admin: 05/27/16 09:44 Dose: 1 mg Losartan Potassium (Cozaar -) 25 mg PO DAILY [facility] Last Admin: 05/26/16 09:24 Dose: 25 mg Metoprolol Succinate (Toprol Xl -) 50 mg PO DAILY [facility] Last Admin: 05/26/16 09:25 Dose: 50 mg Metoprolol Tartrate (Lopressor Injection -) 2.5 mg IVPUSH Q4H PRN PRN Reason: HR >/= 130 Last Admin: 05/21/16 04:48 Dose: 2.5 mg Pantoprazole Sodium (Protonix -) 40 mg PO DAILY [facility] Last Admin: 05/26/16 09:25 Dose: 40 mg Prednisone (Deltasone -) 20 mg PO BID [facility] Last Admin: 05/26/16 22:12 Dose: 20 mg Rosuvastatin Calcium (Crestor -) 5 mg PO HS [facility] Last Admin: 05/26/16 22:12 Dose: 5 mg Sevelamer Carbonate (Renvela -) 800 mg PO TIDCM [facility] Last Admin: 05/27/16 07:46 Dose: Not Given Tiotropium [place] (Spiriva -) 1 puff IH DAILY [facility] Last Admin: 05/26/16 09:27 Dose: 1 puff - Objective Vital Signs: Vital Signs Temperature 98.6 F 05/27/16 10:10 Pulse Rate 59 L 05/27/16 10:45 Respiratory Rate 18 05/27/16 10:45 Blood Pressure 98/47 05/27/16 10:45 O2 Sat by Pulse Oximetry (%) 98 05/27/16 09:00 Constitutional: Yes: Calm Eyes: Yes: Conjunctiva Clear HENT: Yes: Atraumatic Cardiovascular: Yes: S1, S2 Respiratory: Yes: On Nasal O2 Gastrointestinal: Yes: Soft Genitourinary: Yes: WNL Musculoskeletal: Yes: WNL Edema: No Neurological: Yes: Oriented Psychiatric: Yes: Oriented Labs: CBC, BMP 05/22/16 11:10 05/22/16 14:05 INR, PTT INR 1.44 (0.82-1.09) H 05/11/16 09:02 Problem List - Problems (1) Defibrillator discharge Code(s): Z45.02 - ENCNTR FOR ADJUST AND MGMT OF AUTOMATIC IMPLNTBL CARD DEFIB (2) ESRD needing dialysis Code(s): N18.6 - END STAGE RENAL DISEASE (3) Panic anxiety syndrome Code(s): F41.0 - PANIC DISORDER WITHOUT AGORAPHOBIA (4) Pneumonia Code(s): J18.9 - PNEUMONIA, UNSPECIFIED ORGANISM Qualifiers: Pneumonia type: due to unspecified organism Laterality: unspecified laterality Lung location: unspecified part of lung Qualified Code(s): J18.9 - Pneumonia, unspecified organism (5) COPD (chronic obstructive pulmonary disease) Code(s): J44.9 - CHRONIC OBSTRUCTIVE PULMONARY DISEASE, UNSPECIFIED Qualifiers : COPD type: unspecified COPD Qualified Code(s): J44.9 - Chronic obstructive pulmonary disease, unspecified (6) A-fib Qualifiers: Atrial fibrillation type: unspecified Qualified Code(s): I48.91 - Unspecified atrial fibrillation (7) CHF (congestive heart failure) Code(s): I50.9 - HEART FAILURE, UNSPECIFIED Qualifiers: Congestive heart failure type: unspecified congestive heart failure type Congestive heart failure chronicity: unspecified congestive heart failure chronicity Qualified Code(s): I50.9 - Heart failure, unspecified (8) Cough Code(s): R05 - COUGH Assessment/Plan Current Medications Generic Name Dose Route Start Last Admin Trade Name Freq PRN Reason Stop Dose Admin Acetaminophen 650 mg 05/25/16 20:47 05/25/16 21:10 Tylenol - PO 650 mg Q6H PRN Administration FEVER OR PAIN Albuterol Sulfate 1 amp 05/21/16 16:35 05/26/16 21:22 Ventolin 0.083% Nebulizer Soln - NEB 1 amp Q4H PRN Administration SHORT OF BREATH/WHEEZING Apixaban 2.5 mg 05/11/16 22:00 05/26/16 22:12 Eliquis - PO 2.5 mg BID [facility] Administration Aspirin 81 mg 05/12/16 10:00 05/26/16 09:24 Asa - PO 81 mg DAILY [facility] Administration Budesonide/Formoterol Fumarate 2 puff 05/25/16 11:45 05/26/16 22:12 Symbicort 160/4.5mcg - IH 2 puff BID [facility] Administration Digoxin 0.125 mg 05/22/16 10:00 05/25/16 10:04 Lanoxin - PO 0.125 mg Q72H [facility] Administration Daptomycin 350 mg/ Sodium 50 mls @ 100 mls/hr 05/19/16 16:00 05/25/16 16:29 Chloride IVPB 100 mls/hr MoWeFr@1600 [facility] Administration Lidocaine HCl 1 applic 05/27/16 10:45 Xylocaine 2% Jelly TP MoWeFr [facility] Lorazepam 1 mg 05/25/16 06:19 05/27/16 09:44 Ativan - PO 1 mg Q8H PRN Administration Losartan Potassium 25 mg 05/12/16 10:00 05/26/16 09:24 Cozaar - PO 25 mg DAILY [facility] Administration Metoprolol Succinate 50 mg 05/12/16 10:00 05/26/16 09:25 Toprol Xl - PO 50 mg DAILY [facility] Administration Metoprolol Tartrate 2.5 mg 05/11/16 22:54 05/21/16 04:48 Lopressor Injection - IVPUSH 2.5 mg Q4H PRN Administration HR >/= 130 Pantoprazole Sodium 40 mg 05/12/16 10:00 05/26/16 09:25 Protonix - PO 40 mg DAILY [facility] Administration Prednisone 20 mg 05/23/16 11:45 05/26/16 22:12 Deltasone - PO 20 mg BID [facility] Administration Rosuvastatin Calcium 5 mg 05/11/16 22:00 05/26/16 22:12 Crestor - PO 5 mg HS [facility] Administration Sevelamer Carbonate 800 mg 05/12/16 08:00 05/27/16 07:46 Renvela - PO Not Given TIDCM [facility] Tiotropium [place] 1 puff 05/25/16 12:15 05/26/16 09:27 Spiriva - IH 1 puff DAILY [facility] Administration blood cultures 05/11 neg 05/16 1 of 2 bottles positive 05/18 negative final Impression 1. ESRD 2. PNA 3. HTN 4. CHF 5. pleural effusion 6. hypothyroidism 7. hyperlipidemia 8. MVP 9. a-fib Plan - pt is tolerating HD - last day of abx is Wednesday - lidocaine jelly to access before HD - cultures reviewed and are negative - 3 hrs, 1000 heparin, 500 maintenance, permacath, hectorol 2 mcg, aranesp 35 weekly, [address] Zuluaga
[2016-05-27] MEDS: APIXABAN 2.5 MG TABLET PO SCH ×2 (13:12→21:31)
[2016-05-27] MEDS: predniSONE 20 MG TABLET (UD) PO SCH (13:12)
[2016-05-27] MEDS: TIOTROPIUM BROMIDE 18 MCG/INH (DEVICE W/ 5 CAPSULES) IH SCH (13:49)
[2016-05-27] MEDS: ASPIRIN 81 MG CHEWABLE TABLETS PO SCH (13:49)
[2016-05-27] MEDS: PANTOPRAZOLE 40 MG TABLET (FP) PO SCH (13:49)
[2016-05-27] MEDS: METOPROLOL SUCCINATE 50 MG TAB.SR.24H (FP) PO SCH (13:49)
[2016-05-27] MEDS: LOSARTAN POTASSIUM 25 MG TABLET PO SCH (13:49)
[2016-05-27] MEDS: BUDESONIDE/FORMETEROL FUMARATE 160/4.5 mcg INHALER IH SCH ×2 (13:50→21:31)
--- NOTE | 2016-05-27 15:04 | PN ---
Progress Note, Physician Chief Complaint: Pt A&Ox3;OOB in chair. No chest pain or dyspnea; had pain at left arm AVG site, making HD difficult. History of Present Illness: The patient is an 80 year old white female, with a significant past medical history of anemia, Afib s/p ICD 09/2015 ; on Eliquis, COPD (on home O2 as needed ), systolic (borderline reduced LVEF)/diastolic CHF, HTN, hyperlipidemia, hypothyroidism, ESRD (on dialysis MWF, recent revision on her fistula); anxiety/ depression/panic, and overactive bladder, who presents to the emergency department with shortness of breath since approximately 9PM last night shortly after her defibrillator went off. The patient additionally reports intermittent palpitations and a productive cough that began last weekend. The patient states that she has been coughing up phlegm w/o hemopytsis. The patient reports that she needs to have dialysis today as her most recent dialysis was last Wednesday (05/08/2016). The patient does note that she feels more sob when laying flat, denies any leg swelling. The patient denies any chest pain prior to coming to the ED, but endorsed some CP after initial evaluation. The patient denies fever, chills , nausea, vomiting, diarrhea or melena/bpr. Allergies: None reported. Past Surgical History: Stents x 3, Defibrillator (09/27/2015). Social History: Former smoker (quit 08/2014). Denies alcohol or drug use. PCP: Dr. Swanson Associate: Dr. Chris Stopboard Assembler: Dr. Lopez - Current Medication List Current Medications: Active Medications Acetaminophen (Tylenol -) 650 mg PO Q6H PRN PRN Reason: FEVER OR PAIN Last Admin: 05/25/16 21:10 Dose: 650 mg Albuterol Sulfate (Ventolin 0.083% Nebulizer Soln -) 1 amp NEB Q4H PRN PRN Reason: SHORT OF BREATH/WHEEZING Last Admin: 05/26/16 21:22 Dose: 1 amp Apixaban (Eliquis -) 2.5 mg PO BID [facility] Last Admin: 05/27/16 13:12 Dose: Not Given Aspirin (Asa -) 81 mg PO DAILY [facility] Last Admin: 05/27/16 13:49 Dose: 81 mg Budesonide/Formoterol Fumarate (Symbicort 160/4.5mcg -) 2 puff IH BID [facility] Last Admin: 05/27/16 13:50 Dose: 2 puff Digoxin (Lanoxin -) 0.125 mg PO Q72H [facility] Last Admin: 05/25/16 10:04 Dose: 0.125 mg Daptomycin 350 mg/ Sodium (Chloride) 50 mls @ 100 mls/hr IVPB MoWeFr@1600 [facility] Last Admin: 05/25/16 16:29 Dose: 100 mls/hr Lidocaine HCl (Xylocaine 2% Jelly) 1 applic TP MoWeFr [facility] Last Admin: 05/27/16 10:45 Dose: 5 ml Lorazepam (Ativan -) 1 mg PO Q8H PRN Last Admin: 05/27/16 09:44 Dose: 1 mg Losartan Potassium (Cozaar -) 25 mg PO DAILY [facility] Last Admin: 05/27/16 13:49 Dose: 25 mg Metoprolol Succinate (Toprol Xl -) 50 mg PO DAILY [facility] Last Admin: 05/27/16 13:49 Dose: 50 mg Metoprolol Tartrate (Lopressor Injection -) 2.5 mg IVPUSH Q4H PRN PRN Reason: HR >/= 130 Last Admin: 05/21/16 04:48 Dose: 2.5 mg Pantoprazole Sodium (Protonix -) 40 mg PO DAILY [facility] Last Admin: 05/27/16 13:49 Dose: 40 mg Prednisone (Deltasone -) 20 mg PO BID [facility] Last Admin: 05/27/16 13:12 Dose: Not Given Rosuvastatin Calcium (Crestor -) 5 mg PO HS [facility] Last Admin: 05/26/16 22:12 Dose: 5 mg Sevelamer Carbonate (Renvela -) 800 mg PO TIDCM [facility] Last Admin: 05/27/16 13:12 Dose: Not Given Tiotropium [place] (Spiriva -) 1 puff IH DAILY [facility] Last Admin: 05/27/16 13:49 Dose: 1 puff - Objective Vital Signs: Vital Signs Temperature 98.6 F 05/27/16 10:10 Pulse Rate 78 05/27/16 13:34 Respiratory Rate 18 05/27/16 13:34 Blood Pressure 119/44 05/27/16 13:34 O2 Sat by Pulse Oximetry (%) 98 05/27/16 09:00 Constitutional: Yes: Anxious Eyes: Yes: WNL HENT: Yes: WNL Neck: Yes: WNL Cardiovascular: Yes: Pulse Irregular Respiratory: Yes: Regular Gastrointestinal: Yes: Soft ...Rectal Exam: Yes: Deferred Genitourinary: No: Anuria Breast(s): Yes: WNL Musculoskeletal: Yes: Muscle Weakness Extremities: Yes: Cool Edema: No Peripheral Pulses WNL: No Peripheral Pulses: Left Doralis Pedis: 1+, Right Dorsalis Pedis: 1+ Integumentary: Yes: Bruising Wound/Incision: Yes: Other (LUE AVG site red; no gross bleed) Psychiatric: Yes: Alert, Oriented Labs: CBC, BMP 05/22/16 11:10 05/22/16 14:05 INR, PTT INR 1.44 (0.82-1.09) H 05/11/16 09:02 Problem List - Problems (1) COPD (chronic obstructive pulmonary disease) Assessment/Plan: bronchodilators: pt feels better with treatments. Steroids and O2 per yard switcher. Code(s): J44.9 - CHRONIC OBSTRUCTIVE PULMONARY DISEASE, UNSPECIFIED Qualifiers : COPD type: unspecified COPD Qualified Code(s): J44.9 - Chronic obstructive pulmonary disease, unspecified (2) A-fib Assessment/Plan: Telemetry: NSR; periods of AF now with well-controlled HR since adding digoxin to metoprolol. Level of digoxin 1.77. Will change to 0.0625 mg q72 hrs (liquid); keep level 0.5 -1.0. On apixaban for AC; on ASA (hx CAD). F/u electrolytes. Continue metoprolol ER; consider increase in dose if rapid HR refractory to addition of digoxin, and if BP allows. Qualifiers: Atrial fibrillation type: unspecified Qualified Code(s): I48.91 - Unspecified atrial fibrillation (3) Acute on chronic systolic and diastolic heart failure, NYHA class 3 Assessment/Plan: On losartan and metoprolol ER. Digoxin loaded; HR better-controlled now. Keep digoxin level 0.5-1.0. Start 0.125 mg q 72 hours. F/u electrolytes. Code(s): I50.43 - ACUTE ON CHRONIC COMBINED SYSTOLIC AND DIASTOLIC HRT FAIL (4) Bleeding from dialysis shunt Code(s): T82.838A - HEMORRHAGE DUE TO VASCULAR PROSTH DEV/GRFT, INIT Qualifiers: Encounter type: initial encounter Qualified Code(s): T82.838A - Hemorrhage of vascular prosthetic devices, implants and grafts, initial encounter (5) ESRD (end stage renal disease) on dialysis Assessment/Plan: For HD per clamp operator. (6) HTN (hypertension) Code(s): I10 - ESSENTIAL (PRIMARY) HYPERTENSION Qualifiers: Hypertension type: essential hypertension Qualified Code(s): I10 - Essential (primary) hypertension (7) Hyperlipidemia Assessment/Plan: on statin; LDL cholesterol < 70mg/dL. Code(s): E78.5 - HYPERLIPIDEMIA, UNSPECIFIED (8) Palpitations Code(s): R00.2 - PALPITATIONS (9) Shortness of breath Code(s): R06.02 - SHORTNESS OF BREATH (10) Status post coronary artery stent placement Code(s): Z95.5 - PRESENCE OF CORONARY ANGIOPLASTY IMPLANT AND GRAFT (11) Panic anxiety syndrome Code(s): F41.0 - PANIC DISORDER WITHOUT AGORAPHOBIA (12) Defibrillator discharge Code(s): Z45.02 - ENCNTR FOR ADJUST AND MGMT OF AUTOMATIC IMPLNTBL CARD DEFIB
[2016-05-27] MEDS ORDERED: PT OWN MED DRAWER 7, Y5N ONE ×2 (15:39→21:28)
--- NOTE | 2016-05-27 16:01 | PN ---
Progress Note, Physician History of Present Illness: stable no new issues doing well - Current Medication List Current Medications: Active Medications Acetaminophen (Tylenol -) 650 mg PO Q6H PRN PRN Reason: FEVER OR PAIN Last Admin: 05/25/16 21:10 Dose: 650 mg Albuterol Sulfate (Ventolin 0.083% Nebulizer Soln -) 1 amp NEB Q4H PRN PRN Reason: SHORT OF BREATH/WHEEZING Last Admin: 05/26/16 21:22 Dose: 1 amp Apixaban (Eliquis -) 2.5 mg PO BID [facility] Last Admin: 05/27/16 13:12 Dose: Not Given Aspirin (Asa -) 81 mg PO DAILY [facility] Last Admin: 05/27/16 13:49 Dose: 81 mg Budesonide/Formoterol Fumarate (Symbicort 160/4.5mcg -) 2 puff IH BID [facility] Last Admin: 05/27/16 13:50 Dose: 2 puff Digoxin (Lanoxin Oral Solution -) 62.5 mcg PO Q72H [facility] Daptomycin 350 mg/ Sodium (Chloride) 50 mls @ 100 mls/hr IVPB MoWeFr@1600 [facility] Last Admin: 05/25/16 16:29 Dose: 100 mls/hr Lidocaine HCl (Xylocaine 2% Jelly) 1 applic TP MoWeFr [facility] Last Admin: 05/27/16 10:45 Dose: 5 ml Lorazepam (Ativan -) 1 mg PO Q8H PRN Last Admin: 05/27/16 09:44 Dose: 1 mg Losartan Potassium (Cozaar -) 25 mg PO DAILY [facility] Last Admin: 05/27/16 13:49 Dose: 25 mg Metoprolol Succinate (Toprol Xl -) 50 mg PO DAILY [facility] Last Admin: 05/27/16 13:49 Dose: 50 mg Metoprolol Tartrate (Lopressor Injection -) 2.5 mg IVPUSH Q4H PRN PRN Reason: HR >/= 130 Last Admin: 05/21/16 04:48 Dose: 2.5 mg Pantoprazole Sodium (Protonix -) 40 mg PO DAILY [facility] Last Admin: 05/27/16 13:49 Dose: 40 mg Prednisone (Deltasone -) 20 mg PO BID [facility] Last Admin: 05/27/16 13:12 Dose: Not Given Rosuvastatin Calcium (Crestor -) 5 mg PO [facility] Last Admin: 05/26/16 22:12 Dose: 5 mg Sevelamer Carbonate (Renvela -) 800 mg PO TIDCM [facility] Last Admin: 05/27/16 13:12 Dose: Not Given Tiotropium [place] (Spiriva -) 1 puff IH DAILY [facility] Last Admin: 05/27/16 13:49 Dose: 1 puff - Objective Vital Signs: Vital Signs Temperature 98.6 F 05/27/16 10:10 Pulse Rate 78 05/27/16 13:34 Respiratory Rate 18 05/27/16 13:34 Blood Pressure 119/44 05/27/16 13:34 O2 Sat by Pulse Oximetry (%) 98 05/27/16 09:00 Constitutional: Yes: No Distress, Calm HENT: Yes: Atraumatic Cardiovascular: Yes: Regular Rate and Rhythm Respiratory: Yes: Regular, On Nasal O2, Poor Air Entry Gastrointestinal: Yes: Normal Bowel Sounds, Soft Musculoskeletal: Yes: WNL Extremities: Yes: WNL Neurological: Yes: Alert, Oriented Psychiatric: Yes: Alert Labs: CBC, BMP 05/22/16 11:10 05/22/16 14:05 INR, PTT INR 1.44 (0.82-1.09) H 05/11/16 09:02 Assessment/Plan patient evaluated and findings noted,patient is an immunocompromised patient patient is showing infiltrate in the lung which i think is pneumonia as she also ahs greenish sputum production Problem List - Problems (1) COPD (chronic obstructive pulmonary disease) Code(s): J44.9 - CHRONIC OBSTRUCTIVE PULMONARY DISEASE, UNSPECIFIED Qualifiers : COPD type: unspecified COPD Qualified Code(s): J44.9 - Chronic obstructive pulmonary disease, unspecified (2) A-fib Qualifiers: Atrial fibrillation type: unspecified Qualified Code(s): I48.91 - Unspecified atrial fibrillation (3) Acute on chronic systolic and diastolic heart failure, NYHA class 3 Code(s): I50.43 - ACUTE ON CHRONIC COMBINED SYSTOLIC AND DIASTOLIC HRT FAIL (4) Bleeding from dialysis shunt Code(s): T82.838A - HEMORRHAGE DUE TO VASCULAR PROSTH DEV/GRFT, INIT Qualifiers: Encounter type: initial encounter Qualified Code(s): T82.838A - Hemorrhage of vascular prosthetic devices, implants and grafts, initial encounter (5) Cough Code(s): R05 - COUGH (8) HTN (hypertension) Code(s): I10 - ESSENTIAL (PRIMARY) HYPERTENSION Qualifiers: Hypertension type: essential hypertension Qualified Code(s): I10 - Essential (primary) hypertension (9) Hyperlipidemia Code(s): E78.5 - HYPERLIPIDEMIA, UNSPECIFIED (10) Palpitations Code(s): R00.2 - PALPITATIONS (11) Paroxysmal atrial fibrillation Code(s): I48.0 - PAROXYSMAL ATRIAL FIBRILLATION (12) Shortness of breath Code(s): R06.02 - SHORTNESS OF BREATH (13) Anxiety and depression Code(s): F41.9 - ANXIETY DISORDER, UNSPECIFIED F32.9 - MAJOR DEPRESSIVE DISORDER, SINGLE EPISODE, UNSPECIFIED (14) Status post coronary artery stent placement Code(s): Z95.5 - PRESENCE OF CORONARY ANGIOPLASTY IMPLANT AND GRAFT (15) Panic anxiety syndrome Code(s): F41.0 - PANIC DISORDER WITHOUT AGORAPHOBIA pneumonia bacteremia gm positive plan finish abx as planned rest continue current mgmt
[2016-05-27] MEDS: DAPTOMYCIN 350 MG in SODIUM CHLORIDE 50 ML IVPB SCH (16:36)
--- NOTE | 2016-05-27 18:06 | PN ---
Progress Note, Physician History of Present Illness: itchy in hands today startye yesterday - Current Medication List Current Medications: Active Medications Acetaminophen (Tylenol -) 650 mg PO Q6H PRN PRN Reason: FEVER OR PAIN Last Admin: 05/25/16 21:10 Dose: 650 mg Albuterol Sulfate (Ventolin 0.083% Nebulizer Soln -) 1 amp NEB Q4H PRN PRN Reason: SHORT OF BREATH/WHEEZING Last Admin: 05/26/16 21:22 Dose: 1 amp Apixaban (Eliquis -) 2.5 mg PO BID [facility] Last Admin: 05/27/16 13:12 Dose: Not Given Aspirin (Asa -) 81 mg PO DAILY [facility] Last Admin: 05/27/16 13:49 Dose: 81 mg Budesonide/Formoterol Fumarate (Symbicort 160/4.5mcg -) 2 puff IH BID [facility] Last Admin: 05/27/16 13:50 Dose: 2 puff Digoxin (Lanoxin Oral Solution -) 62.5 mcg PO Q72H [facility] Diphenhydramine HCl (Benadryl -) 25 mg PO Q6H PRN PRN Reason: FOR ITCHING Daptomycin 350 mg/ Sodium (Chloride) 50 mls @ 100 mls/hr IVPB MoWeFr@1600 [facility] Last Admin: 05/27/16 16:36 Dose: 100 mls/hr Lidocaine HCl (Xylocaine 2% Jelly) 1 applic TP MoWeFr [facility] Last Admin: 05/27/16 10:45 Dose: 5 ml Lorazepam (Ativan -) 1 mg PO Q8H PRN Last Admin: 05/27/16 09:44 Dose: 1 mg Losartan Potassium (Cozaar -) 25 mg PO DAILY [facility] Last Admin: 05/27/16 13:49 Dose: 25 mg Metoprolol Succinate (Toprol Xl -) 50 mg PO DAILY [facility] Last Admin: 05/27/16 13:49 Dose: 50 mg Metoprolol Tartrate (Lopressor Injection -) 2.5 mg IVPUSH Q4H PRN PRN Reason: HR >/= 130 Last Admin: 05/21/16 04:48 Dose: 2.5 mg Pantoprazole Sodium (Protonix -) 40 mg PO DAILY [facility] Last Admin: 05/27/16 13:49 Dose: 40 mg Prednisone (Deltasone -) 20 mg PO DAILY [facility] Rosuvastatin Calcium (Crestor -) 5 mg PO HS [facility] Last Admin: 05/26/16 22:12 Dose: 5 mg Sevelamer Carbonate (Renvela -) 800 mg PO TIDCM [facility] Last Admin: 05/27/16 17:36 Dose: 800 mg Tiotropium [place] (Spiriva -) 1 puff IH DAILY [facility] Last Admin: 05/27/16 13:49 Dose: 1 puff - Objective Vital Signs: Vital Signs Temperature 98.6 F 05/27/16 10:10 Pulse Rate 78 05/27/16 13:34 Respiratory Rate 18 05/27/16 13:34 Blood Pressure 119/44 05/27/16 13:34 O2 Sat by Pulse Oximetry (%) 98 05/27/16 09:00 Constitutional: Yes: No Distress HENT: Yes: Atraumatic Neck: Yes: Supple Cardiovascular: Yes: Regular Rate and Rhythm Respiratory: Yes: CTA Bilaterally Gastrointestinal: Yes: Normal Bowel Sounds Extremities: Yes: WNL Neurological: Yes: Alert, Oriented Labs: CBC, BMP 05/22/16 11:10 05/22/16 14:05 INR, PTT INR 1.44 (0.82-1.09) H 05/11/16 09:02 Problem List - Problems (1) ESRD needing dialysis Code(s): N18.6 - END STAGE RENAL DISEASE (2) COPD (chronic obstructive pulmonary disease) Code(s): J44.9 - CHRONIC OBSTRUCTIVE PULMONARY DISEASE, UNSPECIFIED Qualifiers : COPD type: unspecified COPD Qualified Code(s): J44.9 - Chronic obstructive pulmonary disease, unspecified (3) A-fib Qualifiers: Atrial fibrillation type: unspecified Qualified Code(s): I48.91 - Unspecified atrial fibrillation (4) Atrial fibrillation with tachycardic ventricular rate Code(s): I48.91 - UNSPECIFIED ATRIAL FIBRILLATION (5) Defibrillator discharge Code(s): Z45.02 - ENCNTR FOR ADJUST AND MGMT OF AUTOMATIC IMPLNTBL CARD DEFIB (6) Pneumonia Code(s): J18.9 - PNEUMONIA, UNSPECIFIED ORGANISM Qualifiers: Pneumonia type: due to unspecified organism Laterality: unspecified laterality Lung location: unspecified part of lung Qualified Code(s): J18.9 - Pneumonia, unspecified organism (7) Acute on chronic systolic and diastolic heart failure, NYHA class 3 Code(s): I50.43 - ACUTE ON CHRONIC COMBINED SYSTOLIC AND DIASTOLIC HRT FAIL Assessment/Plan Laboratory Tests A/P 1. ESRD ON HD 2. PNA IV ABX BCX...POSITIVE STEROIDS DUO NEBS 3. HTN STABLE ON MEDS 4. CHF 5. pleural effusion 6. hypothyroidism 7. hyperlipidemia 8. MVP 9. a-fib stable previous noted dc on wednesday after abx dose itchy..... dry skin? abx? will put her on prn benadryl observe when she gets the next dose of ab
[2016-05-27] MEDS: diphenhydrAMINE HCL 25 MG CAPSULE (FP) PO PRN (18:50)
[2016-05-28] MEDS: diphenhydrAMINE HCL 25 MG CAPSULE (FP) PO PRN ×3 (07:39→21:19)
[2016-05-28] MEDS ORDERED: PT OWN MED DRAWER 7, Y5N ONE ×2 (08:45→21:22)
[2016-05-28] MEDS: SEVELAMER CARBONATE 800 MG TAB (FP) PO SCH ×3 (08:54→18:11)
[2016-05-28] MEDS: METOPROLOL SUCCINATE 50 MG TAB.SR.24H (FP) PO SCH (09:08)
[2016-05-28] MEDS: LOSARTAN POTASSIUM 25 MG TABLET PO SCH (09:08)
[2016-05-28] MEDS: TIOTROPIUM BROMIDE 18 MCG/INH (DEVICE W/ 5 CAPSULES) IH SCH (09:08)
[2016-05-28] MEDS: APIXABAN 2.5 MG TABLET PO SCH ×2 (09:08→21:19)
[2016-05-28] MEDS: ASPIRIN 81 MG CHEWABLE TABLETS PO SCH (09:08)
[2016-05-28] MEDS: BUDESONIDE/FORMETEROL FUMARATE 160/4.5 mcg INHALER IH SCH ×2 (09:08→21:20)
[2016-05-28] MEDS: PANTOPRAZOLE 40 MG TABLET (FP) PO SCH (09:08)
[2016-05-28] MEDS: predniSONE 20 MG TABLET (UD) PO SCH (09:08)
[2016-05-28] MEDS ORDERED: DIGOXIN 250 MCG/5 ML LIQUID PO SCH (10:00)
--- NOTE | 2016-05-28 14:05 | PN ---
Progress Note, Physician History of Present Illness: Pt seen and examined at bedside. She is awake and alert. She feels that her breathing is improving. She denies chest pain. - Current Medication List Current Medications: Active Medications Acetaminophen (Tylenol -) 650 mg PO Q6H PRN PRN Reason: FEVER OR PAIN Last Admin: 05/25/16 21:10 Dose: 650 mg Albuterol Sulfate (Ventolin 0.083% Nebulizer Soln -) 1 amp NEB Q4H PRN PRN Reason: SHORT OF BREATH/WHEEZING Last Admin: 05/26/16 21:22 Dose: 1 amp Apixaban (Eliquis -) 2.5 mg PO BID [facility] Last Admin: 05/28/16 09:08 Dose: 2.5 mg Aspirin (Asa -) 81 mg PO DAILY [facility] Last Admin: 05/28/16 09:08 Dose: 81 mg Budesonide/Formoterol Fumarate (Symbicort 160/4.5mcg -) 2 puff IH BID [facility] Last Admin: 05/28/16 09:08 Dose: 2 puff Digoxin (Lanoxin Oral Solution -) 62.5 mcg PO Q72H [facility] Last Admin: 05/28/16 10:35 Dose: 62.5 mcg Diphenhydramine HCl (Benadryl -) 25 mg PO Q6H PRN PRN Reason: FOR ITCHING Last Admin: 05/28/16 07:39 Dose: 25 mg Daptomycin 350 mg/ Sodium (Chloride) 50 mls @ 100 mls/hr IVPB MoWeFr@1600 [facility] Last Admin: 05/27/16 16:36 Dose: 100 mls/hr Lidocaine HCl (Xylocaine 2% Jelly) 1 applic TP MoWeFr [facility] Last Admin: 05/27/16 10:45 Dose: 5 ml Losartan Potassium (Cozaar -) 25 mg PO DAILY [facility] Last Admin: 05/28/16 09:08 Dose: 25 mg Metoprolol Succinate (Toprol Xl -) 50 mg PO DAILY [facility] Last Admin: 05/28/16 09:08 Dose: 50 mg Metoprolol Tartrate (Lopressor Injection -) 2.5 mg IVPUSH Q4H PRN PRN Reason: HR >/= 130 Last Admin: 05/21/16 04:48 Dose: 2.5 mg Pantoprazole Sodium (Protonix -) 40 mg PO DAILY [facility] Last Admin: 05/28/16 09:08 Dose: 40 mg Prednisone (Deltasone -) 20 mg PO DAILY [facility] Last Admin: 05/28/16 09:08 Dose: 20 mg Rosuvastatin Calcium (Crestor -) 5 mg PO HS [facility] Last Admin: 05/26/16 22:12 Dose: 5 mg Sevelamer Carbonate (Renvela -) 800 mg PO TIDCM [facility] Last Admin: 05/28/16 12:54 Dose: 800 mg Tiotropium [place] (Spiriva -) 1 puff IH DAILY [facility] Last Admin: 05/28/16 09:08 Dose: 1 puff - Objective Vital Signs: Vital Signs Temperature 98.2 F 05/28/16 06:00 Pulse Rate 70 05/28/16 10:35 Respiratory Rate 20 05/28/16 08:58 Blood Pressure 126/34 05/28/16 08:58 O2 Sat by Pulse Oximetry (%) 95 05/28/16 08:59 Constitutional: Yes: Calm Eyes: Yes: Conjunctiva Clear HENT: Yes: Atraumatic Neck: Yes: Supple Cardiovascular: Yes: S1, S2 Respiratory: Yes: CTA Bilaterally Gastrointestinal: Yes: Soft Genitourinary: Yes: WNL Musculoskeletal: Yes: WNL Extremities: Yes: Other (left arm graft with thrill and bruit) Edema: No Neurological: Yes: Oriented Psychiatric: Yes: Oriented Labs: CBC, BMP 05/22/16 11:10 05/22/16 14:05 INR, PTT INR 1.44 (0.82-1.09) H 05/11/16 09:02 Problem List - Problems (1) Defibrillator discharge Code(s): Z45.02 - ENCNTR FOR ADJUST AND MGMT OF AUTOMATIC IMPLNTBL CARD DEFIB (2) ESRD needing dialysis Code(s): N18.6 - END STAGE RENAL DISEASE (3) Panic anxiety syndrome Code(s): F41.0 - PANIC DISORDER WITHOUT AGORAPHOBIA (4) Pneumonia Code(s): J18.9 - PNEUMONIA, UNSPECIFIED ORGANISM Qualifiers: Pneumonia type: due to unspecified organism Laterality: unspecified laterality Lung location: unspecified part of lung Qualified Code(s): J18.9 - Pneumonia, unspecified organism (5) COPD (chronic obstructive pulmonary disease) Code(s): J44.9 - CHRONIC OBSTRUCTIVE PULMONARY DISEASE, UNSPECIFIED Qualifiers : COPD type: unspecified COPD Qualified Code(s): J44.9 - Chronic obstructive pulmonary disease, unspecified (6) A-fib Qualifiers: Atrial fibrillation type: unspecified Qualified Code(s): I48.91 - Unspecified atrial fibrillation (7) CHF (congestive heart failure) Code(s): I50.9 - HEART FAILURE, UNSPECIFIED Qualifiers: Congestive heart failure type: unspecified congestive heart failure type Congestive heart failure chronicity: unspecified congestive heart failure chronicity Qualified Code(s): I50.9 - Heart failure, unspecified (8) Cough Code(s): R05 - COUGH Assessment/Plan Current Medications Generic Name Dose Route Start Last Admin Trade Name Freq PRN Reason Stop Dose Admin Acetaminophen 650 mg 05/25/16 20:47 05/25/16 21:10 Tylenol - PO 650 mg Q6H PRN Administration FEVER OR PAIN Albuterol Sulfate 1 amp 05/21/16 16:35 05/26/16 21:22 Ventolin 0.083% Nebulizer Soln - NEB 1 amp Q4H PRN Administration SHORT OF BREATH/WHEEZING Apixaban 2.5 mg 05/11/16 22:00 05/28/16 09:08 Eliquis - PO 2.5 mg BID [facility] Administration Aspirin 81 mg 05/12/16 10:00 05/28/16 09:08 Asa - PO 81 mg DAILY [facility] Administration Budesonide/Formoterol Fumarate 2 puff 05/25/16 11:45 05/28/16 09:08 Symbicort 160/4.5mcg - IH 2 puff BID [facility] Administration Digoxin 62.5 mcg 05/28/16 10:00 05/28/16 10:35 Lanoxin Oral Solution - PO 62.5 mcg Q72H [facility] Administration Diphenhydramine HCl 25 mg 05/27/16 18:00 05/28/16 07:39 Benadryl - PO 25 mg Q6H PRN Administration FOR ITCHING Daptomycin 350 mg/ Sodium 50 mls @ 100 mls/hr 05/19/16 16:00 05/27/16 16:36 Chloride IVPB 100 mls/hr MoWeFr@1600 [facility] Administration Lidocaine HCl 1 applic 05/27/16 10:45 05/27/16 10:45 Xylocaine 2% Jelly TP 5 ml MoWeFr [facility] Administration Losartan Potassium 25 mg 05/12/16 10:00 05/28/16 09:08 Cozaar - PO 25 mg DAILY [facility] Administration Metoprolol Succinate 50 mg 05/12/16 10:00 05/28/16 09:08 Toprol Xl - PO 50 mg DAILY [facility] Administration Metoprolol Tartrate 2.5 mg 05/11/16 22:54 05/21/16 04:48 Lopressor Injection - IVPUSH 2.5 mg Q4H PRN Administration HR >/= 130 Pantoprazole Sodium 40 mg 05/12/16 10:00 05/28/16 09:08 Protonix - PO 40 mg DAILY [facility] Administration Prednisone 20 mg 05/28/16 10:00 05/28/16 09:08 Deltasone - PO 20 mg DAILY [facility] Administration Rosuvastatin Calcium 5 mg 05/11/16 22:00 05/26/16 22:12 Crestor - PO 5 mg HS [facility] Administration Sevelamer Carbonate 800 mg 05/12/16 08:00 05/28/16 12:54 Renvela - PO 800 mg TIDCM [facility] Administration Tiotropium [place] 1 puff 05/25/16 12:15 05/28/16 09:08 Spiriva - IH 1 puff DAILY [facility] Administration blood cultures 05/11 neg 05/16 1 of 2 bottles positive 05/18 negative final Impression 1. ESRD 2. PNA 3. HTN 4. CHF 5. pleural effusion 6. hypothyroidism 7. hyperlipidemia 8. MVP 9. a-fib Plan - will arrange for HD in am - last dose of dapto is tomorroe - will order labs pre HD - lidocaine jelly to access before HD - cultures reviewed and are negative - 3 hrs, 1000 heparin, 500 maintenance, permacath, hectorol 2 mcg, aranesp 35 weekly, [address] Zuluaga
--- NOTE | 2016-05-28 15:08 | PN ---
Progress Note, Physician History of Present Illness: stable no new issues doing well - Current Medication List Current Medications: Active Medications Acetaminophen (Tylenol -) 650 mg PO Q6H PRN PRN Reason: FEVER OR PAIN Last Admin: 05/25/16 21:10 Dose: 650 mg Albuterol Sulfate (Ventolin 0.083% Nebulizer Soln -) 1 amp NEB Q4H PRN PRN Reason: SHORT OF BREATH/WHEEZING Last Admin: 05/26/16 21:22 Dose: 1 amp Apixaban (Eliquis -) 2.5 mg PO BID [facility] [place] Last Admin: 05/28/16 09:08 Dose: 2.5 mg Aspirin (Asa -) 81 mg PO DAILY [facility] [place] Last Admin: 05/28/16 09:08 Dose: 81 mg Budesonide/Formoterol Fumarate (Symbicort 160/4.5mcg -) 2 puff IH BID [facility] [place] Last Admin: 05/28/16 09:08 Dose: 2 puff Digoxin (Lanoxin Oral Solution -) 62.5 mcg PO Q72H [facility] [place] Last Admin: 05/28/16 10:35 Dose: 62.5 mcg Diphenhydramine HCl (Benadryl -) 25 mg PO Q6H PRN PRN Reason: FOR ITCHING Last Admin: 05/28/16 07:39 Dose: 25 mg Epoetin Jose (Epogen -) 7,000 units IVPUSH ONCE ONE Stop: 05/29/16 14:06 Heparin Sodium (Porcine) (Heparin -) 1,000 unit IVPUSH ONCE ONE Stop: 05/29/16 14:06 Daptomycin 350 mg/ Sodium (Chloride) 50 mls @ 100 mls/hr IVPB MoWeFr@1600 [facility] [place] Last Admin: 05/27/16 16:36 Dose: 100 mls/hr Lidocaine HCl (Xylocaine 2% Jelly) 1 applic TP MoWeFr [facility] [place] Last Admin: 05/27/16 10:45 Dose: 5 ml Losartan Potassium (Cozaar -) 25 mg PO DAILY [facility] [place] Last Admin: 05/28/16 09:08 Dose: 25 mg Metoprolol Succinate (Toprol Xl -) 50 mg PO DAILY [facility] [place] Last Admin: 05/28/16 09:08 Dose: 50 mg Metoprolol Tartrate (Lopressor Injection -) 2.5 mg IVPUSH Q4H PRN PRN Reason: HR >/= 130 Last Admin: 05/21/16 04:48 Dose: 2.5 mg Pantoprazole Sodium (Protonix -) 40 mg PO DAILY [facility] [place] Last Admin: 05/28/16 09:08 Dose: 40 mg Paricalcitol (Zemplar -) 2 mcg IVPUSH ONCE ONE Stop: 05/29/16 14:06 Prednisone (Deltasone -) 20 mg PO DAILY [facility] [place] Last Admin: 05/28/16 09:08 Dose: 20 mg Rosuvastatin Calcium (Crestor -) 5 mg PO HS [facility] [place] Last Admin: 05/26/16 22:12 Dose: 5 mg Sevelamer Carbonate (Renvela -) 800 mg PO TIDCM [facility] [place] Last Admin: 05/28/16 12:54 Dose: 800 mg Tiotropium [place] (Spiriva -) 1 puff IH DAILY [facility] [place] Last Admin: 05/28/16 09:08 Dose: 1 puff - Objective Vital Signs: Vital Signs Temperature 98.2 F 05/28/16 06:00 Pulse Rate 70 05/28/16 10:35 Respiratory Rate 20 05/28/16 08:58 Blood Pressure 126/34 05/28/16 08:58 O2 Sat by Pulse Oximetry (%) 95 05/28/16 08:59 Constitutional: Yes: No Distress, Calm Cardiovascular: Yes: Regular Rate and Rhythm, Other Respiratory: Yes: Regular, Poor Air Entry Gastrointestinal: Yes: Normal Bowel Sounds, Soft Musculoskeletal: Yes: WNL Extremities: Yes: WNL Neurological: Yes: Alert Psychiatric: Yes: Alert Labs: CBC, BMP 05/22/16 11:10 05/22/16 14:05 INR, PTT INR 1.44 (0.82-1.09) H 05/11/16 09:02 Assessment/Plan patient evaluated and findings noted,patient is an immunocompromised patient patient is showing infiltrate in the lung which i think is pneumonia as she also ahs greenish sputum production Problem List - Problems (1) COPD (chronic obstructive pulmonary disease) Code(s): J44.9 - CHRONIC OBSTRUCTIVE PULMONARY DISEASE, UNSPECIFIED Qualifiers : COPD type: unspecified COPD Qualified Code(s): J44.9 - Chronic obstructive pulmonary disease, unspecified (2) A-fib Qualifiers: Atrial fibrillation type: unspecified Qualified Code(s): I48.91 - Unspecified atrial fibrillation (3) Acute on chronic systolic and diastolic heart failure, NYHA class 3 Code(s): I50.43 - ACUTE ON CHRONIC COMBINED SYSTOLIC AND DIASTOLIC HRT FAIL (4) Bleeding from dialysis shunt Code(s): T82.838A - HEMORRHAGE DUE TO VASCULAR PROSTH DEV/GRFT, INIT Qualifiers: Encounter type: initial encounter Qualified Code(s): T82.838A - Hemorrhage of vascular prosthetic devices, implants and grafts, initial encounter (5) Cough Code(s): R05 - COUGH (8) HTN (hypertension) Code(s): I10 - ESSENTIAL (PRIMARY) HYPERTENSION Qualifiers: Hypertension type: essential hypertension Qualified Code(s): I10 - Essential (primary) hypertension (9) Hyperlipidemia Code(s): E78.5 - HYPERLIPIDEMIA, UNSPECIFIED (10) Palpitations Code(s): R00.2 - PALPITATIONS (11) Paroxysmal atrial fibrillation Code(s): I48.0 - PAROXYSMAL ATRIAL FIBRILLATION (12) Shortness of breath Code(s): R06.02 - SHORTNESS OF BREATH (13) Anxiety and depression Code(s): F41.9 - ANXIETY DISORDER, UNSPECIFIED F32.9 - MAJOR DEPRESSIVE DISORDER, SINGLE EPISODE, UNSPECIFIED (14) Status post coronary artery stent placement Code(s): Z95.5 - PRESENCE OF CORONARY ANGIOPLASTY IMPLANT AND GRAFT (15) Panic anxiety syndrome Code(s): F41.0 - PANIC DISORDER WITHOUT AGORAPHOBIA pneumonia bacteremia gm positive plan finish abx as planned rest continue current mgmt patients last dose tomorrow dialysis tomorrow
--- NOTE | 2016-05-28 15:40 | PN ---
Progress Note (short form) - Note Progress Note: Resting in NAD. Overall feels better. Intake & Output 05/25/16 05/26/16 05/27/16 05/28/16 23:59 23:59 23:59 23:59 Intake Total 640 1295 400 200 Balance 640 1295 400 200 Weight 123 lb 4 oz Last Vital Signs Temp Pulse Resp BP Pulse Ox 98.2 F 70 20 126/34 95 05/28/16 06:00 05/28/16 10:35 05/28/16 08:58 05/28/16 08:58 05/28/16 08:59 Active Medications Acetaminophen (Tylenol -) 650 mg PO Q6H PRN PRN Reason: FEVER OR PAIN Last Admin: 05/25/16 21:10 Dose: 650 mg Albuterol Sulfate (Ventolin 0.083% Nebulizer Soln -) 1 amp NEB Q4H PRN PRN Reason: SHORT OF BREATH/WHEEZING Last Admin: 05/26/16 21:22 Dose: 1 amp Apixaban (Eliquis -) 2.5 mg PO BID [facility] Last Admin: 05/28/16 09:08 Dose: 2.5 mg Aspirin (Asa -) 81 mg PO DAILY [facility] Last Admin: 05/28/16 09:08 Dose: 81 mg Budesonide/Formoterol Fumarate (Symbicort 160/4.5mcg -) 2 puff IH BID [facility] Last Admin: 05/28/16 09:08 Dose: 2 puff Digoxin (Lanoxin Oral Solution -) 62.5 mcg PO Q72H [facility] Last Admin: 05/28/16 10:35 Dose: 62.5 mcg Diphenhydramine HCl (Benadryl -) 25 mg PO Q6H PRN PRN Reason: FOR ITCHING Last Admin: 05/28/16 15:09 Dose: 25 mg Epoetin Jose (Procrit -) 7,000 unit IVPUSH ONCE ONE Stop: 05/29/16 14:06 Heparin Sodium (Porcine) (Heparin -) 1,000 unit IVPUSH ONCE ONE Stop: 05/29/16 14:06 Daptomycin 350 mg/ Sodium (Chloride) 50 mls @ 100 mls/hr IVPB MoWeFr@1600 [facility] Last Admin: 05/27/16 16:36 Dose: 100 mls/hr Lidocaine HCl (Xylocaine 2% Jelly) 1 applic TP MoWeFr [facility] Last Admin: 05/27/16 10:45 Dose: 5 ml Losartan Potassium (Cozaar -) 25 mg PO DAILY [facility] Last Admin: 05/28/16 09:08 Dose: 25 mg Metoprolol Succinate (Toprol Xl -) 50 mg PO DAILY [facility] Last Admin: 05/28/16 09:08 Dose: 50 mg Metoprolol Tartrate (Lopressor Injection -) 2.5 mg IVPUSH Q4H PRN PRN Reason: HR >/= 130 Last Admin: 05/21/16 04:48 Dose: 2.5 mg Pantoprazole Sodium (Protonix -) 40 mg PO DAILY [facility] Last Admin: 05/28/16 09:08 Dose: 40 mg Paricalcitol (Zemplar -) 2 mcg IVPUSH ONCE ONE Stop: 05/29/16 14:06 Prednisone (Deltasone -) 20 mg PO DAILY [facility] Last Admin: 05/28/16 09:08 Dose: 20 mg Rosuvastatin Calcium (Crestor -) 5 mg PO HS [facility] Last Admin: 05/26/16 22:12 Dose: 5 mg Sevelamer Carbonate (Renvela -) 800 mg PO TIDCM [facility] Last Admin: 05/28/16 12:54 Dose: 800 mg Tiotropium [place] (Spiriva -) 1 puff IH DAILY [facility] Last Admin: 05/28/16 09:08 Dose: 1 puff Constitutional: Yes: NAD Eyes: Yes: WNL HENT: Yes: WNL Neck: Yes: WNL Cardiovascular: Yes: Pulse Irregular, S1, S2 Respiratory: Yes: Few basilar rhonchi Gastrointestinal: Yes: WNL Extremities: Yes: WNL Edema: No Labs: Assessment/Plan Problem List - Problems (1) COPD exacerbation Code(s): J44.1 - CHRONIC OBSTRUCTIVE PULMONARY DISEASE W (ACUTE) EXACERBATION (2) ESRD needing dialysis Code(s): N18.6 - END STAGE RENAL DISEASE (3) A-fib Qualifiers: Atrial fibrillation type: unspecified Qualified Code(s): I48.91 - Unspecified atrial fibrillation (4) Chronic systolic (congestive) heart failure Code(s): I50.22 - CHRONIC SYSTOLIC (CONGESTIVE) HEART FAILURE (5) Pleural effusion Code(s): J90 - PLEURAL EFFUSION, NOT ELSEWHERE CLASSIFIED (6) Bacteremia Code(s): R78.81 - BACTEREMIA Assessment/Plan Acute COPD Exacerbation improving ESRD on HD VRE Bacteremia LV Systolic Dysfunction Pleural Effusion - prednisone taper - inhaled bronchodilators - O2 to keep SpO2 >90% - symbicort and spiriva - antibiotics per ID - rate control - AC Dr Arvizu
--- NOTE | 2016-05-28 19:18 | PN ---
Progress Note, Physician History of Present Illness: doing well - Current Medication List Current Medications: Active Medications Acetaminophen (Tylenol -) 650 mg PO Q6H PRN PRN Reason: FEVER OR PAIN Last Admin: 05/25/16 21:10 Dose: 650 mg Albuterol Sulfate (Ventolin 0.083% Nebulizer Soln -) 1 amp NEB Q4H PRN PRN Reason: SHORT OF BREATH/WHEEZING Last Admin: 05/26/16 21:22 Dose: 1 amp Apixaban (Eliquis -) 2.5 mg PO BID [facility] Last Admin: 05/28/16 09:08 Dose: 2.5 mg Aspirin (Asa -) 81 mg PO DAILY [facility] Last Admin: 05/28/16 09:08 Dose: 81 mg Budesonide/Formoterol Fumarate (Symbicort 160/4.5mcg -) 2 puff IH BID [facility] Last Admin: 05/28/16 09:08 Dose: 2 puff Digoxin (Lanoxin Oral Solution -) 62.5 mcg PO Q72H [facility] Last Admin: 05/28/16 10:35 Dose: 62.5 mcg Diphenhydramine HCl (Benadryl -) 25 mg PO Q6H PRN PRN Reason: FOR ITCHING Last Admin: 05/28/16 15:09 Dose: 25 mg Epoetin Jose (Procrit -) 7,000 unit IVPUSH ONCE ONE Stop: 05/29/16 14:06 Heparin Sodium (Porcine) (Heparin -) 1,000 unit IVPUSH ONCE ONE Stop: 05/29/16 14:06 Daptomycin 350 mg/ Sodium (Chloride) 50 mls @ 100 mls/hr IVPB MoWeFr@1600 [facility] Last Admin: 05/27/16 16:36 Dose: 100 mls/hr Lidocaine HCl (Xylocaine 2% Jelly) 1 applic TP MoWeFr [facility] Last Admin: 05/27/16 10:45 Dose: 5 ml Losartan Potassium (Cozaar -) 25 mg PO DAILY [facility] Last Admin: 05/28/16 09:08 Dose: 25 mg Metoprolol Succinate (Toprol Xl -) 50 mg PO DAILY [facility] Last Admin: 05/28/16 09:08 Dose: 50 mg Metoprolol Tartrate (Lopressor Injection -) 2.5 mg IVPUSH Q4H PRN PRN Reason: HR >/= 130 Last Admin: 05/21/16 04:48 Dose: 2.5 mg Pantoprazole Sodium (Protonix -) 40 mg PO DAILY [facility] Last Admin: 05/28/16 09:08 Dose: 40 mg Paricalcitol (Zemplar -) 2 mcg IVPUSH ONCE ONE Stop: 05/29/16 14:06 Prednisone (Deltasone -) 20 mg PO DAILY [facility] Last Admin: 05/28/16 09:08 Dose: 20 mg Rosuvastatin Calcium (Crestor -) 5 mg PO HS [facility] Last Admin: 05/26/16 22:12 Dose: 5 mg Sevelamer Carbonate (Renvela -) 800 mg PO TIDCM [facility] Last Admin: 05/28/16 18:11 Dose: 800 mg Tiotropium [place] (Spiriva -) 1 puff IH DAILY [facility] Last Admin: 05/28/16 09:08 Dose: 1 puff - Objective Vital Signs: Vital Signs Temperature 98.8 F 05/28/16 18:18 Pulse Rate 72 05/28/16 18:18 Respiratory Rate 18 05/28/16 18:18 Blood Pressure 127/40 05/28/16 18:18 O2 Sat by Pulse Oximetry (%) 95 05/28/16 08:59 HENT: Yes: Atraumatic Neck: Yes: Supple Cardiovascular: Yes: Regular Rate and Rhythm Respiratory: Yes: CTA Bilaterally Gastrointestinal: Yes: Normal Bowel Sounds Extremities: Yes: WNL Neurological: Yes: Alert, Oriented Labs: CBC, BMP 05/22/16 11:10 05/22/16 14:05 INR, PTT INR 1.44 (0.82-1.09) H 05/11/16 09:02 Problem List - Problems (1) ESRD needing dialysis Code(s): N18.6 - END STAGE RENAL DISEASE (2) COPD (chronic obstructive pulmonary disease) Code(s): J44.9 - CHRONIC OBSTRUCTIVE PULMONARY DISEASE, UNSPECIFIED Qualifiers : COPD type: unspecified COPD Qualified Code(s): J44.9 - Chronic obstructive pulmonary disease, unspecified (3) A-fib Qualifiers: Atrial fibrillation type: unspecified Qualified Code(s): I48.91 - Unspecified atrial fibrillation (4) Atrial fibrillation with tachycardic ventricular rate Code(s): I48.91 - UNSPECIFIED ATRIAL FIBRILLATION (5) Defibrillator discharge Code(s): Z45.02 - ENCNTR FOR ADJUST AND MGMT OF AUTOMATIC IMPLNTBL CARD DEFIB (6) Pneumonia Code(s): J18.9 - PNEUMONIA, UNSPECIFIED ORGANISM Qualifiers: Pneumonia type: due to unspecified organism Laterality: unspecified laterality Lung location: unspecified part of lung Qualified Code(s): J18.9 - Pneumonia, unspecified organism (7) Acute on chronic systolic and diastolic heart failure, NYHA class 3 Code(s): I50.43 - ACUTE ON CHRONIC COMBINED SYSTOLIC AND DIASTOLIC HRT FAIL Assessment/Plan Laboratory Tests A/P 1. ESRD ON HD 2. PNA IV ABX BCX...POSITIVE STEROIDS DUO NEBS 3. HTN STABLE ON MEDS 4. CHF 5. pleural effusion 6. hypothyroidism 7. hyperlipidemia 8. MVP 9. a-fib stable previous noted dc in am after hd/abx if stable
[2016-05-29] MEDS ORDERED: LORazepam 1 MG TABLET PO PRN (06:35)
[2016-05-29] MEDS: SEVELAMER CARBONATE 800 MG TAB (FP) PO SCH ×2 (08:07→13:22)
[2016-05-29] MEDS ORDERED: EPOETIN ALFA 3,000 UNIT, EPOETIN ALFA 4,000 UNIT IVPUSH ONE (08:15)
[2016-05-29 08:21] LABS: MCH 31.2 pg (25.7-33.7); MCHC 32.1 g/dl (32.0-36.0); MEAN PLT VOLUME 9.2 fl (7.5-11.1); PLATELET COUNT 202 K/MM3 (134-434); RDW 18.2 % (11.6-15.6); WHITE BLOOD COUNT 17.3 K/mm3 (4.0-10.0)
[2016-05-29 08:51] LABS: CALCIUM 7.8 mg/dL (8.5-10.1)
[2016-05-29] MEDS ORDERED: PT OWN MED DRAWER 7, Y5N ONE (09:04)
[2016-05-29 09:09] LABS: CREATININE 7.8 mg/dL (0.55-1.02)
[2016-05-29] MEDS ORDERED: PARICALCITOL 5 MCG/ML VIAL IVPUSH ONE (10:00)
[2016-05-29] MEDS ORDERED: HEPARIN NA (PORCINE) 5,000 UNITS/ML 1ML VIAL IVPUSH ONE (10:00)
[2016-05-29] MEDS: METOPROLOL SUCCINATE 50 MG TAB.SR.24H (FP) PO SCH (11:07)
[2016-05-29] MEDS: ASPIRIN 81 MG CHEWABLE TABLETS PO SCH (11:07)
[2016-05-29] MEDS: PANTOPRAZOLE 40 MG TABLET (FP) PO SCH (11:08)
[2016-05-29] MEDS: BUDESONIDE/FORMETEROL FUMARATE 160/4.5 mcg INHALER IH SCH (11:08)
[2016-05-29] MEDS: APIXABAN 2.5 MG TABLET PO SCH (11:08)
[2016-05-29] MEDS: predniSONE 20 MG TABLET (UD) PO SCH (11:08)
[2016-05-29] MEDS: TIOTROPIUM BROMIDE 18 MCG/INH (DEVICE W/ 5 CAPSULES) IH SCH (11:09)
[2016-05-29] MEDS: LOSARTAN POTASSIUM 25 MG TABLET PO SCH (11:10)
[2016-05-29 11:12] VITALS: PULSE 75
--- NOTE | 2016-05-29 11:51 | DS ---
Physical Examination Vital Signs: Vital Signs Temperature 98.4 F 05/29/16 10:00 Pulse Rate 75 05/29/16 10:45 Respiratory Rate 16 05/29/16 10:45 Blood Pressure 113/46 05/29/16 10:45 O2 Sat by Pulse Oximetry (%) 97 05/28/16 20:20 Constitutional: Yes: No Distress HENT: Yes: Atraumatic Neck: Yes: Supple Cardiovascular: Yes: Regular Rate and Rhythm Respiratory: Yes: CTA Bilaterally Gastrointestinal: Yes: Normal Bowel Sounds Extremities: Yes: WNL Neurological: Yes: Alert, Oriented Labs: CBC, BMP 05/29/16 07:45 05/29/16 07:45 Discharge Summary Reason For Visit: ESRD,SOB,CHEST PAIN,PNA Current Active Problems Bacteremia (Acute) COPD exacerbation (Acute) Chest pain (Acute) Defibrillator discharge (Acute) ESRD needing dialysis (Acute) Panic anxiety syndrome (Acute) Pleural effusion (Acute) Pneumonia (Acute) COPD (chronic obstructive pulmonary disease) (Chronic) Condition: Guarded - Instructions Referrals: Pao Paulino MD [Staff Physician] - Joe Mcclain MD [Staff Physician] - Rogers Carrasco MD [Staff Physician] - Disposition[facility] - Home Medications Comprehensive Discharge Medication List: Ambulatory Orders Aspirin [ASA -] 81 mg PO DAILY 09/19/15 Apixaban [Eliquis] 2.5 mg PO BID 11/26/15 Cyanocobalamin/FA/Pyridoxine [[place]bee Tablet] 1 each PO DAILY 02/09/16 Calcium Carbonate/Vitamin D3 [Calcium 500 + Vit D Caplet] 500 mg PO BID Lorazepam 0.5 mg PO TID PRN 02/17/16 Losartan Potassium 25 mg PO DAILY 02/17/16 Pantoprazole Sodium [Protonix] 40 mg PO DAILY 02/17/16 Rosuvastatin Calcium [Crestor] 5 mg PO HS 02/17/16 Sevelamer HCl [Renagel] 800 mg PO TID 02/17/16 Metoprolol Succinate [Toprol XL -] 37.5 mg PO DAILY #0 04/02/16 Oxycodone HCl [Roxicodone -] 5 mg PO Q6H #20 tablet MDD 4 05/01/16 dc after HD if stable
--- NOTE | 2016-05-29 14:03 | PN ---
Progress Note, Physician History of Present Illness: Pt seen and examined at bedside. She tolerated HD this morning. She feels well. - Current Medication List Current Medications: Active Medications Acetaminophen (Tylenol -) 650 mg PO Q6H PRN PRN Reason: FEVER OR PAIN Last Admin: 05/25/16 21:10 Dose: 650 mg Albuterol Sulfate (Ventolin 0.083% Nebulizer Soln -) 1 amp NEB Q4H PRN PRN Reason: SHORT OF BREATH/WHEEZING Last Admin: 05/26/16 21:22 Dose: 1 amp Apixaban (Eliquis -) 2.5 mg PO BID [facility] Last Admin: 05/29/16 11:08 Dose: 2.5 mg Aspirin (Asa -) 81 mg PO DAILY [facility] Last Admin: 05/29/16 11:07 Dose: 81 mg Budesonide/Formoterol Fumarate (Symbicort 160/4.5mcg -) 2 puff IH BID [facility] Last Admin: 05/29/16 11:08 Dose: 2 puff Digoxin (Lanoxin Oral Solution -) 62.5 mcg PO Q72H [facility] Last Admin: 05/28/16 10:35 Dose: 62.5 mcg Diphenhydramine HCl (Benadryl -) 25 mg PO Q6H PRN PRN Reason: FOR ITCHING Last Admin: 05/28/16 21:19 Dose: 25 mg Daptomycin 350 mg/ Sodium (Chloride) 50 mls @ 100 mls/hr IVPB MoWeFr@1600 [facility] Last Admin: 05/27/16 16:36 Dose: 100 mls/hr Lidocaine HCl (Xylocaine 2% Jelly) 1 applic TP MoWeFr [facility] Last Admin: 05/27/16 10:45 Dose: 5 ml Lorazepam (Ativan -) 1 mg PO Q8H PRN Last Admin: 05/29/16 06:51 Dose: 1 mg Losartan Potassium (Cozaar -) 25 mg PO DAILY [facility] Last Admin: 05/29/16 11:10 Dose: 25 mg Metoprolol Succinate (Toprol Xl -) 50 mg PO DAILY [facility] Last Admin: 05/29/16 11:07 Dose: 50 mg Metoprolol Tartrate (Lopressor Injection -) 2.5 mg IVPUSH Q4H PRN PRN Reason: HR >/= 130 Last Admin: 05/21/16 04:48 Dose: 2.5 mg Pantoprazole Sodium (Protonix -) 40 mg PO DAILY [facility] Last Admin: 05/29/16 11:08 Dose: 40 mg Prednisone (Deltasone -) 20 mg PO DAILY [facility] Last Admin: 05/29/16 11:08 Dose: 20 mg Rosuvastatin Calcium (Crestor -) 5 mg PO HS [facility] Last Admin: 05/26/16 22:12 Dose: 5 mg Sevelamer Carbonate (Renvela -) 800 mg PO TIDCM [facility] Last Admin: 05/29/16 13:22 Dose: 800 mg Tiotropium [place] (Spiriva -) 1 puff IH DAILY [facility] Last Admin: 05/29/16 11:09 Dose: 1 puff - Objective Vital Signs: Vital Signs Temperature 98.4 F 05/29/16 10:00 Pulse Rate 75 05/29/16 10:45 Respiratory Rate 16 05/29/16 10:45 Blood Pressure 113/46 05/29/16 10:45 O2 Sat by Pulse Oximetry (%) 97 05/28/16 20:20 Constitutional: Yes: Calm Eyes: Yes: Conjunctiva Clear HENT: Yes: Atraumatic Neck: Yes: Supple Cardiovascular: Yes: S1, S2 Respiratory: Yes: CTA Bilaterally Gastrointestinal: Yes: Soft Genitourinary: Yes: WNL Musculoskeletal: Yes: WNL Edema: No Neurological: Yes: Oriented Psychiatric: Yes: Oriented Labs: CBC, BMP 05/29/16 07:45 05/29/16 07:45 INR, PTT INR 1.44 (0.82-1.09) H 05/11/16 09:02 Problem List - Problems (1) Defibrillator discharge Code(s): Z45.02 - ENCNTR FOR ADJUST AND MGMT OF AUTOMATIC IMPLNTBL CARD DEFIB (2) ESRD needing dialysis Code(s): N18.6 - END STAGE RENAL DISEASE (3) Panic anxiety syndrome Code(s): F41.0 - PANIC DISORDER WITHOUT AGORAPHOBIA (4) Pneumonia Code(s): J18.9 - PNEUMONIA, UNSPECIFIED ORGANISM Qualifiers: Pneumonia type: due to unspecified organism Laterality: unspecified laterality Lung location: unspecified part of lung Qualified Code(s): J18.9 - Pneumonia, unspecified organism (5) COPD (chronic obstructive pulmonary disease) Code(s): J44.9 - CHRONIC OBSTRUCTIVE PULMONARY DISEASE, UNSPECIFIED Qualifiers : COPD type: unspecified COPD Qualified Code(s): J44.9 - Chronic obstructive pulmonary disease, unspecified (6) A-fib Qualifiers: Atrial fibrillation type: unspecified Qualified Code(s): I48.91 - Unspecified atrial fibrillation (7) CHF (congestive heart failure) Code(s): I50.9 - HEART FAILURE, UNSPECIFIED Qualifiers: Congestive heart failure type: unspecified congestive heart failure type Congestive heart failure chronicity: unspecified congestive heart failure chronicity Qualified Code(s): I50.9 - Heart failure, unspecified (8) Cough Code(s): R05 - COUGH Assessment/Plan Current Medications Generic Name Dose Route Start Last Admin Trade Name Freq PRN Reason Stop Dose Admin Acetaminophen 650 mg 05/25/16 20:47 05/25/16 21:10 Tylenol - PO 650 mg Q6H PRN Administration FEVER OR PAIN Albuterol Sulfate 1 amp 05/21/16 16:35 05/26/16 21:22 Ventolin 0.083% Nebulizer Soln - NEB 1 amp Q4H PRN Administration SHORT OF BREATH/WHEEZING Apixaban 2.5 mg 05/11/16 22:00 05/29/16 11:08 Eliquis - PO 2.5 mg BID [facility] Administration Aspirin 81 mg 05/12/16 10:00 05/29/16 11:07 Asa - PO 81 mg DAILY [facility] Administration Budesonide/Formoterol Fumarate 2 puff 05/25/16 11:45 05/29/16 11:08 Symbicort 160/4.5mcg - IH 2 puff BID [facility] Administration Digoxin 62.5 mcg 05/28/16 10:00 05/28/16 10:35 Lanoxin Oral Solution - PO 62.5 mcg Q72H [facility] Administration Diphenhydramine HCl 25 mg 05/27/16 18:00 05/28/16 21:19 Benadryl - PO 25 mg Q6H PRN Administration FOR ITCHING Daptomycin 350 mg/ Sodium 50 mls @ 100 mls/hr 05/19/16 16:00 05/27/16 16:36 Chloride IVPB 100 mls/hr MoWeFr@1600 [facility] Administration Lidocaine HCl 1 applic 05/27/16 10:45 05/27/16 10:45 Xylocaine 2% Jelly TP 5 ml MoWeFr [facility] Administration Lorazepam 1 mg 05/29/16 06:35 05/29/16 06:51 Ativan - PO 1 mg Q8H PRN Administration Losartan Potassium 25 mg 05/12/16 10:00 05/29/16 11:10 Cozaar - PO 25 mg DAILY [facility] Administration Metoprolol Succinate 50 mg 05/12/16 10:00 05/29/16 11:07 Toprol Xl - PO 50 mg DAILY [facility] Administration Metoprolol Tartrate 2.5 mg 05/11/16 22:54 05/21/16 04:48 Lopressor Injection - IVPUSH 2.5 mg Q4H PRN Administration HR >/= 130 Pantoprazole Sodium 40 mg 05/12/16 10:00 05/29/16 11:08 Protonix - PO 40 mg DAILY [facility] Administration Prednisone 20 mg 05/28/16 10:00 05/29/16 11:08 Deltasone - PO 20 mg DAILY [facility] Administration Rosuvastatin Calcium 5 mg 05/11/16 22:00 05/26/16 22:12 Crestor - PO 5 mg HS [facility] Administration Sevelamer Carbonate 800 mg 05/12/16 08:00 05/29/16 13:22 Renvela - PO 800 mg TIDCM [facility] Administration Tiotropium [place] 1 puff 05/25/16 12:15 05/29/16 11:09 Spiriva - IH 1 puff DAILY [facility] Administration blood cultures 05/11 neg 05/16 1 of 2 bottles positive 05/18 negative final Impression 1. ESRD 2. PNA 3. HTN 4. CHF 5. pleural effusion 6. hypothyroidism 7. hyperlipidemia 8. MVP 9. a-fib Plan - pt tolerated HD - she completed course of abx - cont epo - labs reviewed - lidocaine jelly to access before HD - cultures reviewed and are negative - 3 hrs, 1000 heparin, 500 maintenance, permacath, hectorol 2 mcg, aranesp 35 weekly, [address] Zuluaga
[2016-05-29] MEDS ORDERED: EPOETIN ALFA 10,000 UNIT/1 ML VIAL IVPUSH ONE (14:05)
--- NOTE | 2016-05-29 14:27 | PN ---
Progress Note, Physician Chief Complaint: Pt A&Ox3; no chest pain or dyspnea. History of Present Illness: Pt anxious; dyspnea on minimal exertion; looking forward to going home. - Current Medication List Current Medications: Active Medications Acetaminophen (Tylenol -) 650 mg PO Q6H PRN PRN Reason: FEVER OR PAIN Last Admin: 05/25/16 21:10 Dose: 650 mg Albuterol Sulfate (Ventolin 0.083% Nebulizer Soln -) 1 amp NEB Q4H PRN PRN Reason: SHORT OF BREATH/WHEEZING Last Admin: 05/26/16 21:22 Dose: 1 amp Apixaban (Eliquis -) 2.5 mg PO BID [facility] Last Admin: 05/29/16 11:08 Dose: 2.5 mg Aspirin (Asa -) 81 mg PO DAILY [facility] Last Admin: 05/29/16 11:07 Dose: 81 mg Budesonide/Formoterol Fumarate (Symbicort 160/4.5mcg -) 2 puff IH BID [facility] Last Admin: 05/29/16 11:08 Dose: 2 puff Digoxin (Lanoxin Oral Solution -) 62.5 mcg PO Q72H [facility] Last Admin: 05/28/16 10:35 Dose: 62.5 mcg Diphenhydramine HCl (Benadryl -) 25 mg PO Q6H PRN PRN Reason: FOR ITCHING Last Admin: 05/28/16 21:19 Dose: 25 mg Daptomycin 350 mg/ Sodium (Chloride) 50 mls @ 100 mls/hr IVPB MoWeFr@1600 [facility] Last Admin: 05/27/16 16:36 Dose: 100 mls/hr Lidocaine HCl (Xylocaine 2% Jelly) 1 applic TP MoWeFr [facility] Last Admin: 05/27/16 10:45 Dose: 5 ml Lorazepam (Ativan -) 1 mg PO Q8H PRN Last Admin: 05/29/16 06:51 Dose: 1 mg Losartan Potassium (Cozaar -) 25 mg PO DAILY [facility] Last Admin: 05/29/16 11:10 Dose: 25 mg Metoprolol Succinate (Toprol Xl -) 50 mg PO DAILY [facility] Last Admin: 05/29/16 11:07 Dose: 50 mg Metoprolol Tartrate (Lopressor Injection -) 2.5 mg IVPUSH Q4H PRN PRN Reason: HR >/= 130 Last Admin: 05/21/16 04:48 Dose: 2.5 mg Pantoprazole Sodium (Protonix -) 40 mg PO DAILY [facility] Last Admin: 05/29/16 11:08 Dose: 40 mg Prednisone (Deltasone -) 20 mg PO DAILY [facility] Last Admin: 05/29/16 11:08 Dose: 20 mg Rosuvastatin Calcium (Crestor -) 5 mg PO HS [facility] Last Admin: 05/26/16 22:12 Dose: 5 mg Sevelamer Carbonate (Renvela -) 800 mg PO TIDCM [facility] Last Admin: 05/29/16 13:22 Dose: 800 mg Tiotropium [place] (Spiriva -) 1 puff IH DAILY [facility] Last Admin: 05/29/16 11:09 Dose: 1 puff - Objective Vital Signs: Vital Signs Temperature 98.4 F 05/29/16 10:00 Pulse Rate 75 05/29/16 10:45 Respiratory Rate 16 05/29/16 10:45 Blood Pressure 113/46 05/29/16 10:45 O2 Sat by Pulse Oximetry (%) 97 05/28/16 20:20 Constitutional: Yes: Anxious Eyes: Yes: WNL HENT: Yes: WNL Neck: Yes: WNL Cardiovascular: Yes: Pulse Irregular Respiratory: Yes: Diminished Gastrointestinal: Yes: Soft ...Rectal Exam: Yes: Deferred Genitourinary: No: Anuria Breast(s): Yes: WNL Musculoskeletal: Yes: Muscle Weakness Extremities: Yes: Cool Edema: No Peripheral Pulses WNL: No Peripheral Pulses: Left Doralis Pedis: 1+, Right Dorsalis Pedis: 1+ Integumentary: Yes: Other Wound/Incision: Yes: Other (left AV graft dressed; small amount of dried blo0od) Neurological: Yes: Alert, Oriented, Weakness Psychiatric: Yes: Alert, Oriented Labs: CBC, BMP 05/29/16 07:45 05/29/16 07:45 INR, PTT INR 1.44 (0.82-1.09) H 05/11/16 09:02 Problem List - Problems (1) COPD (chronic obstructive pulmonary disease) Assessment/Plan: bronchodilators: pt feels better with treatments. Steroids and O2 per tank hoop bender. Code(s): J44.9 - CHRONIC OBSTRUCTIVE PULMONARY DISEASE, UNSPECIFIED Qualifiers : COPD type: unspecified COPD Qualified Code(s): J44.9 - Chronic obstructive pulmonary disease, unspecified (2) A-fib Assessment/Plan: Telemetry: NSR; periods of AF now with well-controlled HR since adding digoxin to metoprolol. Level of digoxin 1.77. Will change to 0.0625 mg q72 hrs (liquid); keep level 0.5 -1.0. On apixaban for AC; on ASA (hx CAD). F/u electrolytes. Continue metoprolol ER; consider increase in dose if rapid HR refractory to addition of digoxin, and if BP allows. Qualifiers: Atrial fibrillation type: unspecified Qualified Code(s): I48.91 - Unspecified atrial fibrillation (3) Acute on chronic systolic and diastolic heart failure, NYHA class 3 Assessment/Plan: On losartan and metoprolol ER. Digoxin loaded; HR better-controlled now. Keep digoxin level 0.5-1.0. Start 0.125 mg q 72 hours. F/u electrolytes. Code(s): I50.43 - ACUTE ON CHRONIC COMBINED SYSTOLIC AND DIASTOLIC HRT FAIL (4) Bleeding from dialysis shunt Code(s): T82.838A - HEMORRHAGE DUE TO VASCULAR PROSTH DEV/GRFT, INIT Qualifiers: Encounter type: initial encounter Qualified Code(s): T82.838A - Hemorrhage of vascular prosthetic devices, implants and grafts, initial encounter (6) HTN (hypertension) Code(s): I10 - ESSENTIAL (PRIMARY) HYPERTENSION Qualifiers: Hypertension type: essential hypertension Qualified Code(s): I10 - Essential (primary) hypertension (7) Hyperlipidemia Code(s): E78.5 - HYPERLIPIDEMIA, UNSPECIFIED (8) Palpitations Code(s): R00.2 - PALPITATIONS (9) Shortness of breath Code(s): R06.02 - SHORTNESS OF BREATH (10) Status post coronary artery stent placement Code(s): Z95.5 - PRESENCE OF CORONARY ANGIOPLASTY IMPLANT AND GRAFT (11) Panic anxiety syndrome Code(s): F41.0 - PANIC DISORDER WITHOUT AGORAPHOBIA (12) Defibrillator discharge Code(s): Z45.02 - ENCNTR FOR ADJUST AND MGMT OF AUTOMATIC IMPLNTBL CARD DEFIB
--- NOTE | 2016-05-29 14:30 | PN ---
Progress Note, Physician Chief Complaint: Pt A&Ox3; no chest pain or dyspnea. History of Present Illness: The patient is an 80 year old white female, with a significant past medical history of anemia, Afib s/p ICD 09/2015 ; on Eliquis, COPD (on home O2 as needed ), systolic (borderline reduced LVEF)/diastolic CHF, HTN, hyperlipidemia, hypothyroidism, ESRD (on dialysis MWF, recent revision on her fistula); anxiety/ depression/panic, and overactive bladder, who presents to the emergency department with shortness of breath since approximately 9PM last night shortly after her defibrillator went off. The patient additionally reports intermittent palpitations and a productive cough that began last weekend. The patient states that she has been coughing up phlegm w/o hemopytsis. The patient reports that she needs to have dialysis today as her most recent dialysis was last Wednesday (05/08/2016). The patient does note that she feels more sob when laying flat, denies any leg swelling. The patient denies any chest pain prior to coming to the ED, but endorsed some CP after initial evaluation. The patient denies fever, chills , nausea, vomiting, diarrhea or melena/bpr. Allergies: None reported. Past Surgical History: Stents x 3, Defibrillator (09/27/2015). Social History: Former smoker (quit 08/2014). Denies alcohol or drug use. PCP: Dr. Swanson Supervisor Frame Assembly: Dr. Chris Locomotive Observer: Dr. Lopez - Current Medication List Current Medications: Active Medications Acetaminophen (Tylenol -) 650 mg PO Q6H PRN PRN Reason: FEVER OR PAIN Last Admin: 05/25/16 21:10 Dose: 650 mg Albuterol Sulfate (Ventolin 0.083% Nebulizer Soln -) 1 amp NEB Q4H PRN PRN Reason: SHORT OF BREATH/WHEEZING Last Admin: 05/26/16 21:22 Dose: 1 amp Apixaban (Eliquis -) 2.5 mg PO BID [facility] Last Admin: 05/29/16 11:08 Dose: 2.5 mg Aspirin (Asa -) 81 mg PO DAILY [facility] Last Admin: 05/29/16 11:07 Dose: 81 mg Budesonide/Formoterol Fumarate (Symbicort 160/4.5mcg -) 2 puff IH BID [facility] Last Admin: 02/24/17 11:08 Dose: 2 puff Digoxin (Lanoxin Oral Solution -) 62.5 mcg PO Q72H [facility] Last Admin: 05/28/16 10:35 Dose: 62.5 mcg Diphenhydramine HCl (Benadryl -) 25 mg PO Q6H PRN PRN Reason: FOR ITCHING Last Admin: 05/28/16 21:19 Dose: 25 mg Daptomycin 350 mg/ Sodium (Chloride) 50 mls @ 100 mls/hr IVPB MoWeFr@1600 [facility] Last Admin: 05/27/16 16:36 Dose: 100 mls/hr Lidocaine HCl (Xylocaine 2% Jelly) 1 applic TP MoWeFr [facility] Last Admin: 05/27/16 10:45 Dose: 5 ml Lorazepam (Ativan -) 1 mg PO Q8H PRN Last Admin: 05/29/16 06:51 Dose: 1 mg Losartan Potassium (Cozaar -) 25 mg PO DAILY [facility] Last Admin: 05/29/16 11:10 Dose: 25 mg Metoprolol Succinate (Toprol Xl -) 50 mg PO DAILY [facility] Last Admin: 05/29/16 11:07 Dose: 50 mg Metoprolol Tartrate (Lopressor Injection -) 2.5 mg IVPUSH Q4H PRN PRN Reason: HR >/= 130 Last Admin: 05/21/16 04:48 Dose: 2.5 mg Pantoprazole Sodium (Protonix -) 40 mg PO DAILY [facility] Last Admin: 05/29/16 11:08 Dose: 40 mg Prednisone (Deltasone -) 20 mg PO DAILY [facility] Last Admin: 05/29/16 11:08 Dose: 20 mg Rosuvastatin Calcium (Crestor -) 5 mg PO HS [facility] Last Admin: 05/26/16 22:12 Dose: 5 mg Sevelamer Carbonate (Renvela -) 800 mg PO TIDCM [facility] Last Admin: 05/29/16 13:22 Dose: 800 mg Tiotropium [place] (Spiriva -) 1 puff IH DAILY [facility] Last Admin: 05/29/16 11:09 Dose: 1 puff - Objective Vital Signs: Vital Signs Temperature 98.4 F 05/29/16 10:00 Pulse Rate 75 05/29/16 10:45 Respiratory Rate 16 05/29/16 10:45 Blood Pressure 113/46 05/29/16 10:45 O2 Sat by Pulse Oximetry (%) 97 05/28/16 20:20 Constitutional: Yes: Calm Eyes: Yes: WNL HENT: Yes: WNL Neck: Yes: WNL Cardiovascular: Yes: Pulse Irregular Respiratory: Yes: Diminished Gastrointestinal: Yes: Soft ...Rectal Exam: Yes: Deferred Genitourinary: Yes: Urethral Discharge. No: Anuria Breast(s): Yes: WNL Musculoskeletal: Yes: Muscle Weakness Extremities: Yes: Cool Edema: No Integumentary: Yes: Other Neurological: Yes: Alert, Oriented, Weakness Psychiatric: Yes: Alert, Oriented Labs: CBC, BMP 05/29/16 07:45 05/29/16 07:45 INR, PTT INR 1.44 (0.82-1.09) H 05/11/16 09:02 Abnormal Lab Results 05/29/16 05/29/16 07:45 07:45 WBC 17.3 H D RBC 3.46 L MCV 97.0 H RDW 18.2 H Anion Gap 20 H BUN 119 H* D Creatinine 7.8 H* D Calcium 7.8 L - ....Imaging Other: Image Reviewed (telemetry: AF; controlled VR) Problem List - Problems (1) COPD (chronic obstructive pulmonary disease) Assessment/Plan: bronchodilators: pt feels better with treatments. Steroids and O2 per beauty school instructor. Code(s): J44.9 - CHRONIC OBSTRUCTIVE PULMONARY DISEASE, UNSPECIFIED Qualifiers : COPD type: unspecified COPD Qualified Code(s): J44.9 - Chronic obstructive pulmonary disease, unspecified (2) A-fib Assessment/Plan: Telemetry: NSR; periods of AF now with well-controlled HR since adding digoxin to metoprolol. Level of digoxin 1.77. changed to 0.0625 mg q72 hrs (liquid); keep level 0.5- 1.0. On apixaban for AC; on ASA (hx CAD). F/u electrolytes. Continue metoprolol ER; consider increase in dose if rapid HR refractory to addition of digoxin, and if BP allows. Qualifiers: Atrial fibrillation type: unspecified Qualified Code(s): I48.91 - Unspecified atrial fibrillation (3) Acute on chronic systolic and diastolic heart failure, NYHA class 3 Assessment/Plan: On losartan and metoprolol ER. Digoxin loaded; HR better-controlled now. Keep digoxin level 0.5-1.0. Decreased digoxin to 0.0625 mg q 72 hours. F/u electrolytes. Code(s): I50.43 - ACUTE ON CHRONIC COMBINED SYSTOLIC AND DIASTOLIC HRT FAIL (4) Bleeding from dialysis shunt Assessment/Plan: F/u with vascular surgeon. On apixaban and ASA. Code(s): T82.838A - HEMORRHAGE DUE TO VASCULAR PROSTH DEV/GRFT, INIT Qualifiers: Encounter type: initial encounter Qualified Code(s): T82.838A - Hemorrhage of vascular prosthetic devices, implants and grafts, initial encounter (5) ESRD (end stage renal disease) on dialysis Assessment/Plan: For HD per retail stock clerk. (6) HTN (hypertension) Assessment/Plan: On losartan and metoprolol ER. Code(s): I10 - ESSENTIAL (PRIMARY) HYPERTENSION Qualifiers: Hypertension type: essential hypertension Qualified Code(s): I10 - Essential (primary) hypertension (7) Hyperlipidemia Assessment/Plan: on statin; LDL cholesterol < 70mg/dL. Code(s): E78.5 - HYPERLIPIDEMIA, UNSPECIFIED (8) Palpitations Code(s): R00.2 - PALPITATIONS (9) Shortness of breath Code(s): R06.02 - SHORTNESS OF BREATH (10) Status post coronary artery stent placement Code(s): Z95.5 - PRESENCE OF CORONARY ANGIOPLASTY IMPLANT AND GRAFT (11) Panic anxiety syndrome Code(s): F41.0 - PANIC DISORDER WITHOUT AGORAPHOBIA (12) Defibrillator discharge Code(s): Z45.02 - ENCNTR FOR ADJUST AND MGMT OF AUTOMATIC IMPLNTBL CARD DEFIB
[2016-05-29 14:48] VITALS: BP 124/51; TEMP 98.8
--- NOTE | 2016-05-29 15:01 | PN ---
Progress Note, Physician History of Present Illness: stable no new issues doing well - Objective Vital Signs: Vital Signs Temperature 98.8 F 05/29/16 14:00 Pulse Rate 75 05/29/16 14:00 Respiratory Rate 18 05/29/16 14:00 Blood Pressure 124/51 05/29/16 14:00 O2 Sat by Pulse Oximetry (%) 97 05/28/16 20:20 Constitutional: Yes: No Distress, Calm Cardiovascular: Yes: Regular Rate and Rhythm Respiratory: Yes: Regular, Poor Air Entry Musculoskeletal: Yes: WNL Extremities: Yes: WNL Neurological: Yes: Alert, Oriented Psychiatric: Yes: Alert Labs: CBC, BMP 05/29/16 07:45 05/29/16 07:45 INR, PTT INR 1.44 (0.82-1.09) H 05/11/16 09:02 Assessment/Plan patient evaluated and findings noted,patient is an immunocompromised patient patient is showing infiltrate in the lung which i think is pneumonia as she also ahs greenish sputum production Problem List - Problems (1) COPD (chronic obstructive pulmonary disease) Code(s): J44.9 - CHRONIC OBSTRUCTIVE PULMONARY DISEASE, UNSPECIFIED Qualifiers : COPD type: unspecified COPD Qualified Code(s): J44.9 - Chronic obstructive pulmonary disease, unspecified (2) A-fib Qualifiers: Atrial fibrillation type: unspecified Qualified Code(s): I48.91 - Unspecified atrial fibrillation (3) Acute on chronic systolic and diastolic heart failure, NYHA class 3 Code(s): I50.43 - ACUTE ON CHRONIC COMBINED SYSTOLIC AND DIASTOLIC HRT FAIL (4) Bleeding from dialysis shunt Code(s): T82.838A - HEMORRHAGE DUE TO VASCULAR PROSTH DEV/GRFT, INIT Qualifiers: Encounter type: initial encounter Qualified Code(s): T82.838A - Hemorrhage of vascular prosthetic devices, implants and grafts, initial encounter (5) Cough Code(s): R05 - COUGH (8) HTN (hypertension) Code(s): I10 - ESSENTIAL (PRIMARY) HYPERTENSION Qualifiers: Hypertension type: essential hypertension Qualified Code(s): I10 - Essential (primary) hypertension (9) Hyperlipidemia Code(s): E78.5 - HYPERLIPIDEMIA, UNSPECIFIED (10) Palpitations Code(s): R00.2 - PALPITATIONS (11) Paroxysmal atrial fibrillation Code(s): I48.0 - PAROXYSMAL ATRIAL FIBRILLATION (12) Shortness of breath Code(s): R06.02 - SHORTNESS OF BREATH (13) Anxiety and depression Code(s): F41.9 - ANXIETY DISORDER, UNSPECIFIED F32.9 - MAJOR DEPRESSIVE DISORDER, SINGLE EPISODE, UNSPECIFIED (14) Status post coronary artery stent placement Code(s): Z95.5 - PRESENCE OF CORONARY ANGIOPLASTY IMPLANT AND GRAFT (15) Panic anxiety syndrome Code(s): F41.0 - PANIC DISORDER WITHOUT AGORAPHOBIA pneumonia bacteremia gm positive plan stable no new issues continue follow up with the team
== END 2016-05-29 02:40 | DRG 190 ==
LOC: JER 08:12 → JERBED 10:34 → J4S 17:27
PROVIDERS: ADMIT Internal Medicine; ATTEND Internal Medicine
PROC: 5A1D60Z (ICD-10-PCS; 2016-05-19)
PROC: 05PYX3Z Removal of Infusion Device from Upper Vein, External Approach (ICD-10-PCS; principal; 2016-05-26)
DX: J44.0 Chronic obstructive pulmonary disease with (acute) lower respiratory infection (principal); J18.9 Pneumonia, unspecified organism; N18.6 End stage renal disease; I50.43 Acute on chronic combined systolic (congestive) and diastolic (congestive) heart failure; I13.2 Hypertensive heart and chronic kidney disease with heart failure and with stage 5 chronic kidney disease, or end stage renal disease; R78.81 Bacteremia; T82.897A Other specified complication of cardiac prosthetic devices, implants and grafts, initial encounter; D64.9 Anemia, unspecified; Z79.01 Long term (current) use of anticoagulants; E78.5 Hyperlipidemia, unspecified; E03.9 Hypothyroidism, unspecified; Z99.2 Dependence on renal dialysis; N32.81 Overactive bladder; Z87.891 Personal history of nicotine dependence; I44.7 Left bundle-branch block, unspecified; I48.0 Paroxysmal atrial fibrillation; I25.10 Atherosclerotic heart disease of native coronary artery without angina pectoris; I34.1 Nonrheumatic mitral (valve) prolapse; F41.8 Other specified anxiety disorders; F41.0 Panic disorder [episodic paroxysmal anxiety]; I25.5 Ischemic cardiomyopathy; J44.1 Chronic obstructive pulmonary disease with (acute) exacerbation; Y83.8 Other surgical procedures as the cause of abnormal reaction of the patient, or of later complication, without mention of misadventure at the time of the procedure
CPT/HCPCS: 36415; 36430; 71010-TC; 80048; 80053; 80162; 81003; 81015; 82550; 82565; 82803; 83605; 83735; 83880; 84100; 84484; 84520; 85025; 85027; 85610; 85730; 86850; 86900; 86901; 86922; 87040; 87086; 87186; 87804; 93005; 93010; 93306-TC; 94010; 94640; 97116-GP; 97161-GP; 99285-25; J0878; J0885; J1644; P9058

== ENCOUNTER 2016-08-28 01:25 | Inpatient (IN) | payer OTHER, BC ==
--- NOTE | 2016-08-28 01:33 | PDOC ---
History of Present Illness - General History Source: Patient Exam Limitations: No Limitations - History of Present Illness Initial Comments: 08/28/16 02:37 The patient is a 80 year old female with significant past medical history of anemia, afib s/p defibrillator on Eliquis, COPD (on home O2 prn), CAD, s/p stents x3, CHF, hypertension, hyperlipidemia, hypothyroidism, and ESRD (on HD MWF) who presents to the ED for palpitations and SOB prior to arrival. Patient reports she was in her usual state of healthy when she developed palpitations and SOB. At time of evaluation, patient reports her SOB has progressively gotten better. Patient denies lightheadedness, diaphoresis, chest pain, jaw pain , shoulder pain, arm pain, nausea, or vomiting. She reports having a few episodes of loose stools today. Denies abdominal pain. She also states 5 days ago her defibrillator went off and she visited her frozen pie maker 2 days later, where she had an ECG that was normal. The patient denies fever, chills, and cough. Allergies: NDKA Social History: Former smoker (quit 08/2014). No alcohol or drug use reported. Past Surgical History: s/p cardiac stents x 3, defibrillator (09/27/2015) PCP: Dr. Evelyn Swanson Cigar Packing Examiner: Dr. Adilson Chris Whiting Can Worker: Dr. Misael Lopez <Jenny Bhatia - Last Filed: 08/28/16 03:37> <Adilene Mckinley - Last Filed: 08/28/16 20:36> - General Stated Complaint: ABD PAIN,DIFFICULTY BREATHING Time Seen by Provider: 08/28/16 01:32 Past History <Jenny Bhatia - Last Filed: 08/28/16 03:37> - Past Medical History Anemia: Yes Asthma: No Cancer: No Cardiac Disorders: Yes (a fib) CVA: No COPD: Yes CHF: Yes DVT: No Dementia: No Diabetes: No Dialysis: Yes (m,w,f) GI Disorders: No Disorders: Yes (OVERACTIVE BLADDER) HTN: Yes Hypercholesterolemia: Yes Kidney Stones: No (ESRD dyalisis -W-Wednesday) Liver Disease: No Seizures: No Thyroid Disease: Yes (HYPO.) - Surgical History Abdominal Surgery: No Appendectomy: No Cardiac Surgery: Yes (STENTS X 3;DEFIBRILLATOR 09/27/15) Cholecystectomy: No Lung Surgery: No ([employer] [phone]) Neurologic Surgery: No Orthopedic Surgery: No - Immunization History Immunization Up to Date: Yes - Psycho/Social/Smoking Cessation Hx Anxiety: No Suicidal Ideation: No Smoking History: Former smoker Have you smoked in the past 12 months: No Number of Cigarettes Smoked Daily: 0 If you are a former smoker, when did you quit?: 2YRS 'Breaking Loose' booklet given: 08/10/15 Hx Alcohol Use: No Drug/Substance Use Hx: No Substance Use Type: None Hx Substance Use Treatment: No <Adilene Mckinley - Last Filed: 08/28/16 20:36> - Past Medical History Allergies/Adverse Reactions: Allergies Allergy/AdvReac Type Severity Reaction Status Date / Time No Known Allergies Allergy Verified 08/28/16 01:43 Home Medications: Ambulatory Orders Aspirin [ASA -] 81 mg PO DAILY 09/19/15 Apixaban [Eliquis] 2.5 mg PO BID 11/26/15 Lorazepam 1 mg PO TID PRN 02/17/16 Pantoprazole Sodium [Protonix] 40 mg PO DAILY 02/17/16 Rosuvastatin Calcium [Crestor] 5 mg PO HS 02/17/16 Sevelamer HCl [Renagel] 850 mg PO TID 02/17/16 Metoprolol Succinate [Toprol XL -] 50 mg PO BID 08/28/16 Sertraline HCl [Zoloft -] 50 mg PO DAILY 08/28/16 Review of Systems - Review of Systems Able to Perform ROS?: Yes Comments:: 08/28/16 02:37 CONSTITUTIONAL: Absent: fever, chills, diaphoresis, generalized weakness, malaise, loss of appetite HEENT: Absent: rhinorrhea, nasal congestion, throat pain, throat swelling, difficulty swallowing, mouth swelling, ear pain, eye pain, visual Changes CARDIOVASCULAR: +palpitations Absent: chest pain, syncope, irregular heart rate, lightheadedness , peripheral edema RESPIRATORY: +SOB Absent: cough, dyspnea with exertion, orthopnea, wheezing, stridor, hemoptysis GASTROINTESTINAL: +diarrhea Absent: abdominal pain, abdominal distension, nausea, vomiting, constipation, melena, hematochezia GENITOURINARY: Absent: dysuria, frequency, urgency, hesitancy, hematuria, flank pain, genital pain MUSCULOSKELETAL: Absent: myalgia, arthralgia, joint swelling SKIN: Absent: rash, itching, pallor NEUROLOGIC: Absent: headache, focal weakness or paresthesias, dizziness, unsteady gait, seizure, mental status changes, bladder or bowel incontinence <HalinaShonna farrisJenny - Last Filed: 08/28/16 03:37> *Physical Exam - Vital Signs Last Vital Signs Temp Pulse Resp BP Pulse Ox 97.1 F L 92 H 14 101/39 97 08/28/16 01:43 08/28/16 01:43 08/28/16 01:43 08/28/16 01:43 08/28/16 01:43 - Physical Exam Comments: 08/28/16 02:37 GENERAL: Well developed, well nourished. Awake and alert. No acute distress. HEENT: Normocephalic, atraumatic. PERRLA, EOMI. No conjunctival pallor. Sclera are non- icteric. Moist mucous membranes. Oropharynx is clear. NECK: Supple. Full ROM. No JVD. Carotid pulses 2+ and symmetric, without bruits. No thyromegaly. No lymphadenopathy. CARDIOVASCULAR: Irregularly irregular. No murmurs, rubs, or gallops. Distal pulses are 2+ and symmetric. PULMONARY: No evidence of respiratory distress. Lungs clear to auscultation bilaterally. No wheezing, rales or rhonchi. ABDOMINAL: Soft. Non-tender. Non-distended. No rebound or guarding. No organomegaly. Normoactive bowel sounds. MUSCULOSKELETAL Normal range of motion at all joints. No bony deformities or tenderness. No CVA tenderness. EXTREMITIES: No cyanosis. No clubbing. AV fistula left upper extremity, +thrills, +bruits. No edema. No calf tenderness. SKIN: Warm and dry. Normal capillary refill. No rashes. No jaundice. NEUROLOGICAL: Alert, awake, appropriate. Cranial nerves 2-12 intact. Moving all extremities. No gross neurological deficits. <SriramJenny - Last Filed: 08/28/16 03:37> ED Treatment Course - LABORATORY CBC & Chemistry Diagram: 08/28/16 02:45 08/28/16 02:45 <Jenny Bhatia - Last Filed: 08/28/16 03:37> - LABORATORY CBC & Chemistry Diagram: 08/28/16 08:25 08/28/16 08:25 <Adilene Mckinley - Last Filed: 08/28/16 20:36> Medical Decision Making - Medical Decision Making 08/28/16 20:32 Pt comes with rapid afib, dyspnea, anxiety, diarrhea and loose stools for the last few days. She has ESRD on dialysis M,W,F. She comes in for uncontrolled palpitations in the middle of the night. She received hydration, with no relief of her tachycardia. She received diltiazem IV which helped the tachycardia, and she was given an oral dose in the AM. She will be admitted to the hospitalist for SOB, rapid afib, ESRD need for HD this AM, diarrhea and weakness. She lives with her 85 yo who usually drives her to dialysis. She is too weak to be released to his care. And I do not feel comfortable having her ambulate and drive to dialysis. SHe will be admitted. <Adilene Mckinley - Last Filed: 08/28/16 20:36> *DC/Admit/Observation/Transfer - Attestations Scribe Attestion: 08/28/16 02:37 Documentation prepared by Jenny Bhatia, acting as medical records secretary for Adilene Mckinley MD/. <Jenny Bhatia - Last Filed: 08/28/16 03:37> - Discharge Dispostion Admit: Yes <Adilene Mckinley - Last Filed: 08/28/16 20:36> Diagnosis at time of Disposition: ESRD needing dialysis, COPD (chronic obstructive pulmonary disease), Anxiety, Atrial fibrillation with tachycardic ventricular rate - Referrals
[2016-08-28 01:48] VITALS: BMI 19.9
[2016-08-28] MEDS ORDERED: SODIUM CHLORIDE 0.9% 500 ML INFUS.BAG IV ONE ×2 (02:21→03:43)
[2016-08-28 03:02] LABS: BASOPHIL 0.9 % (0-2.0); EOSINOPHIL 0.9 % (0-4.5); MCH 30.7 pg (25.7-33.7); MCHC 31.4 g/dl (32.0-36.0); MEAN CELL VOLUME 97.8 fl (80-96); MEAN PLT VOLUME 8.5 fl (7.5-11.1); PLATELET COUNT 230 K/MM3 (134-434); RDW 20.7 % (11.6-15.6); WHITE BLOOD COUNT 10.3 K/mm3 (4.0-10.0)
[2016-08-28] MEDS ORDERED: LORazepam 1 MG TABLET PO ONE (03:44)
[2016-08-28] MEDS ORDERED: LORazepam 0.5 MG TABLET ONE (03:45)
[2016-08-28 03:46] LABS: PLATELET COMMENT2 NO CLOTTING DETECTED; PLATELET ESTIMATE ADEQUATE (NORMAL)
[2016-08-28 03:47] LABS: ANISOCYTOSIS 1+; HYPOCHROMIA 1+
[2016-08-28 04:01] LABS: ALBUMIN 3.3 g/dl (3.4-5.0); BILIRUBIN,TOTAL 0.3 mg/dL (0.2-1.0); CALCIUM 9.1 mg/dL (8.5-10.1); COCKROFT - GAULT 6.9275; CREATININE 5.2 mg/dL (0.55-1.02); TOT PROT 6.9 g/dl (6.4-8.2)
[2016-08-28 04:34] LABS: TROPONIN I 0.53 ng/ml (0.00-0.05)
[2016-08-28] MEDS ORDERED: dilTIAZem HCL 50 MG/10 ML - 10 ML VIAL IVPUSH ONE (04:40)
[2016-08-28] MEDS ORDERED: dilTIAZem HCL 125 MG/25 ML - 25 ML VIAL ONE (04:43)
--- NOTE | 2016-08-28 05:37 | HP ---
CHIEF COMPLAINT: SOB/palpitations PCP: HISTORY OF PRESENT ILLNESS: This is a 80 year old female with a past medical history of anemia, afib, COPD, CHF, HTN, CAD, [place], AICD, HLD, ESRD on dialysis MWF, hypothyroidism, overactive bladder who presented to the ED with palpitations and SOB. Pt denies chest pain , abdominal pain, nausea, vomiting. Reports few loose stools. S/p AICD fire 5 days ago; f/u with cardio 2 days ago who made medication adjustments: DC losartan and diltiazem and increase toprol to BID. Upon exam, pt feeling better. No further palpitations or SOB ER course was notable for: (1) Afib with RVR tx with cardizem (2) anxiety tx with ativan (3) trop 0.53 Recent Travel: none PAST MEDICAL HISTORY: anemia afib COPD CHF HTN CAD S/P STENT X 3 [place] HLD ESRD on dialysis MWF hypothyroidism overactive bladder PAST SURGICAL HISTORY: AICD 09/27/15 AV graft left upper arm Social History: Smoking: quit 2014 Alcohol: pt denies Drugs: pt denies Allergies No Known Allergies Allergy (Verified 08/28/16 01:43) HOME MEDICATIONS: 3 Medication Instructions Recorded Aspirin [ASA -] 81 mg PO DAILY 09/19/15 Apixaban [Eliquis] 2.5 mg PO BID 11/26/15 Lorazepam 1 mg PO TID PRN 02/17/16 Pantoprazole Sodium [Protonix] 40 mg PO DAILY 02/17/16 Rosuvastatin Calcium [Crestor] 5 mg PO HS 02/17/16 Sevelamer HCl [Renagel] 850 mg PO TID 02/17/16 Metoprolol Succinate [Toprol XL -] 50 mg PO BID 08/28/16 Sertraline HCl [Zoloft -] 50 mg PO DAILY 08/28/16 REVIEW OF SYSTEMS CONSTITUTIONAL: Absent: fever, chills, diaphoresis, generalized weakness, malaise, loss of appetite, weight change HEENT: Absent: rhinorrhea, nasal congestion, throat pain, throat swelling, difficulty swallowing, mouth swelling, ear pain, eye pain, visual changes CARDIOVASCULAR: Present: palpitations Absent: chest pain, syncope, irregular heart rate, lightheadedness, peripheral edema RESPIRATORY: Present: shortness of breath Absent: cough, orthopnea, wheezing, stridor, hemoptysis GASTROINTESTINAL: Absent: abdominal pain, abdominal distension, nausea, vomiting, diarrhea, constipation, melena, hematochezia GENITOURINARY: Absent: dysuria, frequency, urgency, hesitancy, hematuria, flank pain, genital pain MUSCULOSKELETAL: Absent: myalgia, arthralgia, joint swelling, back pain, neck pain SKIN: Absent: rash, itching, pallor HEMATOLOGIC/IMMUNOLOGIC: Absent: easy bleeding, easy bruising, lymphadenopathy, frequent infections ENDOCRINE: Absent: unexplained weight gain, unexplained weight loss, heat intolerance, cold intolerance NEUROLOGIC: Absent: headache, focal weakness or paresthesias, dizziness, unsteady gait, seizure, mental status changes, bladder or bowel incontinence PSYCHIATRIC: Absent: anxiety, depression, suicidal or homicidal ideation, hallucinations. PHYSICAL EXAMINATION Vital Signs - 24 hr 3 08/28/16 08/28/16 08/28/16 01:27 01:43 05:08 Temperature 97.1 F L Pulse Rate 92 H Pulse Rate [ 145 H 81 Apical] Respiratory 16 14 16 Rate Blood Pressure 101/39 Blood Pressure 109/62 [Left] O2 Sat by Pulse 98 97 98 Oximetry (%) GENERAL: Awake, alert, and fully oriented, in no acute distress. HEAD: Normal with no signs of trauma. EYES: Pupils equal, round and reactive to light, extraocular movements intact, sclera anicteric, conjunctiva clear. No lid lag. EARS, NOSE, THROAT: Ears normal, nares patent, oropharynx clear without exudates. Moist mucous membranes. NECK: Normal range of motion, supple without lymphadenopathy, JVD, or masses. LUNGS: Breath sounds equal, clear to auscultation bilaterally. No wheezes, and no crackles. No accessory muscle use. HEART: Irregular rate and rhythm, normal S1 and S2 without rub or gallop. + systolic murmur, 2/6 ABDOMEN: Soft, nontender, not distended, normoactive bowel sounds, no guarding, no rebound, no masses. No hepatomegaly or splenomegaly. MUSCULOSKELETAL: Normal range of motion at all joints. No bony deformities or tenderness. No CVA tenderness. UPPER EXTREMITIES: 2+ pulses, warm, well-perfused. No cyanosis. No clubbing. No peripheral edema. LOWER EXTREMITIES: 2+ pulses, warm, well-perfused. No calf tenderness. No peripheral edema. NEUROLOGICAL: Cranial nerves II-XII intact. Normal speech. Normal gait. PSYCHIATRIC: Cooperative. Good eye contact. Appropriate mood and affect. SKIN: Warm, dry, normal turgor, no rashes or lesions noted, normal capillary refill. Laboratory Results - last 24 hr 3 08/28/16 08/28/16 08/28/16 02:45 02:45 02:45 WBC 10.3 H D RBC 3.72 Hgb 11.4 Hct 36.4 MCV 97.8 H MCHC 31.4 L RDW 20.7 H D Plt Count 230 MPV 8.5 Neutrophils % 71.0 Lymphocytes % 16.7 D Monocytes % 10.5 H Eosinophils % 0.9 Basophils % 0.9 Differential Comment Slide scanned Platelet Estimate Adequate Platelet Comment No clotting detected Hypochromic-Microcytic 1+ Anisocytosis 1+ Sodium 143 Potassium 4.7 Chloride 106 Carbon Dioxide 20 L Anion Gap 17 H BUN 55 H D Creatinine 5.2 H D Creat Clearance w eGFR 7.92 Random Glucose 112 H D Calcium 9.1 Total Bilirubin 0.3 D AST 55 H ALT 47 D Alkaline Phosphatase 152 H Creatine Kinase 37 Troponin I 0.53 H Total Protein 6.9 Albumin 3.3 L ECG: Atrial flutter with vent rate 116, QTC 539, No acute ST/T changes ASSESSMENT/PLAN: 80yF with PMH anemia, afib, COPD, CHF, HTN, CAD, [place], AICD, HLD, ESRD on dialysis MWF, hypothyroidism, overactive bladder who presented to the ED with palpitations and SOB. She is being admitted for further observation/evaluation. Afib with RVR - rate improved s/p cardizem IV, consider restarting po - cardiology consult ordered elevated troponin/CAD - likely secondary to CKD and demand related to rate - trend - cont home ASA and beta kyrie CHF - no s/s acute overload, cxr without effusion and lungs clear - cont toprol - AICD HTN - cont toprol, cont monitoring and adjust meds as indicated HLD - cont home crestor ESRD - will need dialysis as per her schedule tomorrow - renal consult hypothyroid - last TSH here on 03/31/16 was 0.25; has been off synthroid for quite some time - She follows with Dr. Cee on [address] [phone] - will repeat TSH here COPD - cont home symbicort DVT PPX - cont home eliquis FEN - defer IVF in setting of ESRD, CHF and absence of hypovolemia - BMP in am or after dialysis - low sodium diet, renal diet Dispo: pt currently requires inpatient observation for management of her emergent condition but expected LOS<48h Visit type - Emergency Visit Emergency Visit: Yes ED Registration Date: 08/28/16 Care time: The patient presented to the Emergency Department on the above date and was hospitalized for further evaluation of their emergent condition. - New Patient This patient is new to me today: Yes Date on this admission: 08/28/16 - Critical Care Critical Care patient: No
[2016-08-28] MEDS ORDERED: dilTIAZem HCL 60 MG TABLET (FP) PO ONE (07:05)
[2016-08-28 08:36] LABS: BASOPHIL 0.6 % (0-2.0); EOSINOPHIL 1.1 % (0-4.5); MCH 31.9 pg (25.7-33.7); MCHC 32.3 g/dl (32.0-36.0); MEAN CELL VOLUME 98.6 fl (80-96); MEAN PLT VOLUME 8.3 fl (7.5-11.1); NEUTROPHILS 66.6 % (42.8-82.8); PLATELET COUNT 217 K/MM3 (134-434); WHITE BLOOD COUNT 10.3 K/mm3 (4.0-10.0)
[2016-08-28 09:12] LABS: CALCIUM 8.8 mg/dL (8.5-10.1); COCKROFT - GAULT 6.664; CREATININE 5.4 mg/dL (0.55-1.02); MAGNESIUM 2.1 mg/dL (1.8-2.4); PHOSPHOROUS 4.3 mg/dL (2.5-4.9); TROPONIN I 0.4 ng/ml (0.00-0.05)
--- NOTE | 2016-08-28 09:19 | EKG ---
Test Reason : Blood Pressure : / mmHG Vent. Rate : 116 BPM Atrial Rate : 300 BPM P-R Int : 000 ms QRS Dur : 134 ms QT Int : 388 ms P-R-T Axes : 000 050 070 degrees QTc Int : 539 ms ATRIAL FLUTTER WITH VARIABLE A-V BLOCK WITH PREMATURE VENTRICULAR OR ABERRANTLY CONDUCTED COMPLEXES LEFT BUNDLE BRANCH BLOCK CANNOT RULE OUT ANTEROSEPTAL INFARCT (CITED ON OR BEFORE 15-MAY-2016) ABNORMAL ECG Confirmed by JENNY LYONS MD ([id number]) on 08/28/2016 9:19:15 AM Referred By: Confirmed By:JENNY LYONS MD
--- NOTE | 2016-08-28 09:21 | PN ---
Physical Exam: SUBJECTIVE: Patient seen and examined OBJECTIVE: Vital Signs Period Temp Pulse Resp BP Sys/Lynch Pulse Ox Last 24 Hr 98.2 F-98.2 F 100-110 16-16 95-114/49-62 98-98 GENERAL: The patient is awake, alert, and fully oriented, in no acute distress. HEAD: Normal with no signs of trauma. EYES: PERRL, extraocular movements intact, sclera anicteric, conjunctiva clear. No ptosis. ENT: Ears normal, nares patent, oropharynx clear without exudates, moist mucous membranes. NECK: Trachea midline, full range of motion, supple. LUNGS: Breath sounds equal, clear to auscultation bilaterally, no wheezes, no crackles, no accessory muscle use. HEART: Regular rate and rhythm, S1, S2 without murmur, rub or gallop. ABDOMEN: Soft, nontender, nondistended, normoactive bowel sounds, no guarding, no rebound, no hepatosplenomegaly, no masses. EXTREMITIES: 2+ pulses, warm, well-perfused, no edema. NEUROLOGICAL: Cranial nerves II through XII grossly intact. Normal speech, gait not observed. PSYCH: Normal mood, normal affect. SKIN: Warm, dry, normal turgor, no rashes or lesions noted Active Medications Generic Name Dose Route Start Last Admin Trade Name Freq PRN Reason Stop Dose Admin Apixaban 2.5 mg 08/28/16 10:00 Eliquis - PO BID OBED Aspirin 81 mg 08/28/16 10:00 Asa - PO DAILY OBED Lorazepam 1 mg 08/28/16 05:55 Ativan - PO TID PRN ANXIETY Metoprolol Succinate 50 mg 08/28/16 10:00 Toprol Xl - PO BID OBED Pantoprazole Sodium 40 mg 08/28/16 10:00 Protonix - PO DAILY OBED Rosuvastatin Calcium 5 mg 08/28/16 22:00 Crestor - PO HS OBED Sertraline HCl 50 mg 08/28/16 10:00 Zoloft - PO DAILY OBED Sevelamer Carbonate 800 mg 08/28/16 08:00 Renvela - PO TIDCM BOED ASSESSMENT/PLAN:
[2016-08-28] MEDS ORDERED: PANTOPRAZOLE 40 MG TABLET (FP) ONE ×2 (11:08→11:16)
[2016-08-28] MEDS ORDERED: ASPIRIN 81 MG CHEWABLE TABLETS ONE ×2 (11:08→11:16)
[2016-08-28] MEDS ORDERED: METOPROLOL SUCCINATE 50 MG TAB.SR.24H (FP) ONE (11:10)
[2016-08-28] MEDS ORDERED: dilTIAZem HCL 60 MG TABLET (FP) ONE (11:17)
[2016-08-28] MEDS: SERTRALINE HCL 50 MG TABLET (FP) PO SCH (11:27)
[2016-08-28] MEDS: ASPIRIN 81 MG CHEWABLE TABLETS PO SCH (11:27)
[2016-08-28] MEDS: APIXABAN 2.5 MG TABLET PO SCH ×2 (11:27→21:35)
[2016-08-28] MEDS: METOPROLOL SUCCINATE 50 MG TAB.SR.24H (FP) PO SCH ×2 (11:27→21:35)
[2016-08-28] MEDS: PANTOPRAZOLE 40 MG TABLET (FP) PO SCH (11:27)
[2016-08-28] MEDS: SEVELAMER CARBONATE 800 MG TAB (FP) PO SCH ×4 (11:28→17:36)
--- NOTE | 2016-08-28 16:02 | CON.CARD ---
Consult Consult Specialty:: cardiology Reason for Consultation:: AF; hx CHF, arrhythmia-->ICD - History of Present Illness History of Present Illness: The patient is an 80 year old white female with significant past medical history of anemia, afib, severe systolic CHF, s/p defibrillator on Eliquis, COPD (on home O2 prn), CAD, s/p stents x3, hypertension, hyperlipidemia, hypothyroidism, and ESRD (on HD MWF) who presents to the ED for palpitations and SOB prior to arrival. Patient reports she was in her usual state of healthy when she developed palpitations and SOB. At time of evaluation, patient reports her SOB has progressively gotten better. Patient denies lightheadedness, diaphoresis, chest pain, jaw pain, shoulder pain, arm pain, nausea, or vomiting. She reports having a few episodes of loose stools today. Denies abdominal pain. She also states 5 days ago her defibrillator went off and she visited her communications advisor 2 days later, where she had an ECG that was normal. The patient denies fever, chills, and cough. Allergies: NDKA Social History: Former smoker (quit 08/2014). No alcohol or drug use reported. Past Surgical History: s/p cardiac stents x 3, defibrillator (09/27/2015) PCP: Dr. Evelyn Swanson Edge Burnisher Uppers: Dr. Adilson Chris Vulcanizer Rubber Plate: Dr. Misael Lopez - History Source History Provided By: Patient, Medical Record Limitations to Obtaining History: No Limitations - Past Medical History Cardio/Vascular: Yes: AFIB, CAD, CHF, HTN, [place], Hyperlipdemia Pulmonary: Yes: COPD Renal/: Yes: Renal Failure (on HD), Hemodialysis Reproductive: Yes: Postmenopausal ...: No Psych: Yes: Anxiety, Depression Endocrine: Yes: Hypothyroidism - Past Surgical History Past Surgical History: Yes: AV Fistula/Graft, Stent - Alcohol/Substance Use Hx Alcohol Use: No History of Substance Use: reports: None - Smoking History Smoking history: Former smoker Have you smoked in the past 12 months: No Aproximately how many cigarettes per day: 0 If you are a former smoker, when did you quit?: 2YRS - Social History Usual Living Arrangement: With Significant Other ADL: Independent History of Recent Travel: No Home Medications - Allergies Allergies/Adverse Reactions: Allergies Allergy/AdvReac Type Severity Reaction Status Date / Time No Known Allergies Allergy Verified 08/28/16 01:43 - Home Medications Home Medications: Ambulatory Orders Aspirin [ASA -] 81 mg PO DAILY 09/19/15 Apixaban [Eliquis] 2.5 mg PO BID 11/26/15 Lorazepam 1 mg PO TID PRN 02/17/16 Pantoprazole Sodium [Protonix] 40 mg PO DAILY 02/17/16 Rosuvastatin Calcium [Crestor] 5 mg PO HS 02/17/16 Sevelamer HCl [Renagel] 850 mg PO TID 02/17/16 Metoprolol Succinate [Toprol XL -] 50 mg PO BID 08/28/16 Sertraline HCl [Zoloft -] 50 mg PO DAILY 08/28/16 Family Disease History - Family Disease History Family History: Denies Review of Systems - Review of Systems Constitutional: reports: Weakness Eyes: reports: No Symptoms HENT: reports: No Symptoms Neck: reports: No Symptoms Cardiovascular: reports: Palpitations, Shortness of Breath Respiratory: reports: Exercise Intolerance, SOB on Exertion Gastrointestinal: reports: Indigestion Genitourinary: reports: No Symptoms Breasts: reports: No Symptoms Reported Musculoskeletal: reports: Muscle Weakness Integumentary: reports: No Symptoms Neurological: reports: Weakness Psychiatric: reports: Anxiety, Depression, Panic - Risk Factors Known Risk Factors: Yes: Age, Hypercholesterolemia, Hypertension, Physical Inactivity, Smoking (former), Other (severe systolic CHF;) Vital Signs: Vital Signs Temperature 97.9 F 08/28/16 15:01 Pulse Rate 74 08/28/16 15:01 Respiratory Rate 22 08/28/16 15:01 Blood Pressure 107/53 08/28/16 15:01 O2 Sat by Pulse Oximetry (%) 100 08/28/16 15:01 Constitutional: Yes: Anxious Eyes: Yes: WNL HENT: Yes: WNL Neck: Yes: WNL Respiratory: Yes: Diminished Gastrointestinal: Yes: Soft Renal/: No: Anuria Cardiovascular: Yes: Tachycardia, Pulse Irregular JVD: No Carotid Bruit: No PMI: Displaced Heart Sounds: Yes: S1 (varies in intensity) Murmur: Yes: Systolic Murmur, Grade 2 Musculoskeletal: Yes: Muscle Weakness Extremities: Yes: Cool Edema: No Peripheral Pulses WNL: No Peripheral Pulses: 1+ Left Doralis Pedis, 1+ Right Dorsalis Pedis Integumentary: Yes: Venous Stasis Changes Neurological: Yes: Alert, Oriented, Weakness Psychiatric: Yes: Other (anxious) - Other Data Labs, Other Data: CBC, BMP 08/28/16 08:25 08/28/16 08:25 Troponin, BNP 08/28/16 08:25 Troponin I 0.40 H Troponin, BNP 08/28/16 08:25 Troponin I 0.40 H Abnormal Lab Results 08/28/16 08/28/16 08/28/16 02:45 02:45 02:45 WBC 10.3 H D RBC MCV 97.8 H MCHC 31.4 L RDW 20.7 H D Monocytes % 10.5 H Carbon Dioxide 20 L Anion Gap 17 H BUN 55 H D Creatinine 5.2 H D Random Glucose 112 H D AST 55 H Alkaline Phosphatase 152 H Troponin I 0.53 H Albumin 3.3 L 08/28/16 08/28/16 08:25 08:25 WBC 10.3 H RBC 3.38 L MCV 98.6 H MCHC RDW 21.0 H Monocytes % 10.9 H Carbon Dioxide Anion Gap BUN 59 H Creatinine 5.4 H Random Glucose AST Alkaline Phosphatase Troponin I 0.40 H Albumin Ejection Fraction %: LVEF < 40 % Imaging - Results Chest X-ray: Image Reviewed (no acute pathology) EKG: Image Reviewed (AF with RVR) Problem List - Problems (1) Anxiety Assessment/Plan: Continue anxiolytics. Code(s): F41.9 - ANXIETY DISORDER, UNSPECIFIED (2) Atrial fibrillation with tachycardic ventricular rate Assessment/Plan: Pt had diltiazem and digoxin discontinued this week. Metoprolol ER 50 mg daily and today. Maintain electrolytes WNL. TSH WNL. Maintain hydration. Anxiolytics. Continue all systolic CHF medications (ideally including ACEI and spironolactone , if BUN/Cr and electrolytes allow, and if cleared by nephrology: pt is on hemodialysis 3x/week). Code(s): I48.91 - UNSPECIFIED ATRIAL FIBRILLATION (3) ESRD needing dialysis Assessment/Plan: As discussed with Dr. Zuluaga, can safely hold hemodialysis until tomorrow while HR is better-controlled. Code(s): N18.6 - END STAGE RENAL DISEASE (4) COPD (chronic obstructive pulmonary disease) Assessment/Plan: f/u with application internship. Code(s): J44.9 - CHRONIC OBSTRUCTIVE PULMONARY DISEASE, UNSPECIFIED (5) Acute on chronic systolic and diastolic heart failure, NYHA class 3 Code(s): I50.43 - ACUTE ON CHRONIC COMBINED SYSTOLIC AND DIASTOLIC HRT FAIL (6) Defibrillator discharge Code(s): Z45.02 - ENCNTR FOR ADJUST AND MGMT OF AUTOMATIC IMPLNTBL CARD DEFIB (7) HTN (hypertension) Code(s): I10 - ESSENTIAL (PRIMARY) HYPERTENSION Qualifiers: Hypertension type: essential hypertension Qualified Code(s): I10 - Essential (primary) hypertension (8) Hyperlipidemia Code(s): E78.5 - HYPERLIPIDEMIA, UNSPECIFIED (9) Palpitations Code(s): R00.2 - PALPITATIONS (10) Panic anxiety syndrome Code(s): F41.0 - PANIC DISORDER WITHOUT AGORAPHOBIA (11) Shortness of breath Code(s): R06.02 - SHORTNESS OF BREATH (12) CAD (coronary artery disease) Code(s): I25.10 - ATHSCL HEART DISEASE OF [place] CORONARY ARTERY W/O ANG PCTRS Qualifiers: (13) Status post coronary artery stent placement Code(s): Z95.5 - PRESENCE OF CORONARY ANGIOPLASTY IMPLANT AND GRAFT (14) Thyroid disorder Code(s): E07.9 - DISORDER OF THYROID, UNSPECIFIED
--- NOTE | 2016-08-28 16:40 | CONSULT ---
Consult Consult Specialty:: Nephrology Reason for Consultation:: ESRD - History of Present Illness Chief Complaint: palpitations and SOB History of Present Illness: Pt is an 80 year old female with pmhx of ESRD, a-fib, anxiety, anemia, COPD on oxygen, HTN, CAD and hypothyroidism who presents to the ER with shortness of breath and palpitations. Her cardizem and digoxin were stopped earlier this week. She was found to be in rapid a-fib. She was given metoprolol and her hear rate improved. She denies chest pain. She last went to HD on Wednesday and is due today. - History Source History Provided By: Patient - Past Medical History Cardio/Vascular: Yes: AFIB, CAD, CHF, HTN, MA, Hyperlipdemia Pulmonary: Yes: COPD Renal/: Yes: Renal Failure (on HD), Hemodialysis ...: No Psych: Yes: Anxiety, Depression Endocrine: Yes: Hypothyroidism - Past Surgical History Past Surgical History: Yes: AV Fistula/Graft, Stent - Alcohol/Substance Use Hx Alcohol Use: No History of Substance Use: reports: None - Smoking History Smoking history: Former smoker Have you smoked in the past 12 months: No Aproximately how many cigarettes per day: 0 If you are a former smoker, when did you quit?: 2YRS - Social History Usual Living Arrangement: With Significant Other ADL: Independent History of Recent Travel: No Home Medications - Allergies Allergies/Adverse Reactions: Allergies Allergy/AdvReac Type Severity Reaction Status Date / Time No Known Allergies Allergy Verified 08/28/16 01:43 - Home Medications Home Medications: Ambulatory Orders Aspirin [ASA -] 81 mg PO DAILY 09/19/15 Apixaban [Eliquis] 2.5 mg PO BID 11/26/15 Lorazepam 1 mg PO TID PRN 02/17/16 Pantoprazole Sodium [Protonix] 40 mg PO DAILY 02/17/16 Rosuvastatin Calcium [Crestor] 5 mg PO HS 02/17/16 Sevelamer HCl [Renagel] 850 mg PO TID 02/17/16 Metoprolol Succinate [Toprol XL -] 50 mg PO BID 08/28/16 Sertraline HCl [Zoloft -] 50 mg PO DAILY 08/28/16 Family Disease History - Family Disease History Family History: Denies Review of Systems - Review of Systems Constitutional: reports: No Symptoms Eyes: reports: No Symptoms HENT: reports: No Symptoms Neck: reports: No Symptoms Cardiovascular: reports: Palpitations, Shortness of Breath Respiratory: reports: SOB, SOB on Exertion Musculoskeletal: reports: No Symptoms Integumentary: reports: No Symptoms Neurological: reports: No Symptoms Endocrine: reports: No Symptoms Hematology/Lymphatic: reports: No Symptoms Psychiatric: reports: No Symptoms Physical Exam Vital Signs: Vital Signs Temperature 97.9 F 08/28/16 15:01 Pulse Rate 81 08/28/16 16:30 Respiratory Rate 20 08/28/16 16:30 Blood Pressure 112/55 08/28/16 16:30 O2 Sat by Pulse Oximetry (%) 100 08/28/16 16:30 Constitutional: Yes: Anxious Eyes: Yes: Conjunctiva Clear HENT: Yes: Atraumatic Neck: Yes: Supple Cardiovascular: Yes: Pulse Irregular, S1, S2 Respiratory: Yes: CTA Bilaterally, On Nasal O2 Gastrointestinal: Yes: Soft Renal/: Yes: WNL Musculoskeletal: Yes: WNL Edema: No Neurological: Yes: Oriented Psychiatric: Yes: Oriented Labs: CBC, BMP 08/28/16 08:25 08/28/16 08:25 Laboratory Tests 08/28/16 08/28/16 08/28/16 02:45 02:45 08:25 WBC 10.3 H Hgb 10.8 Sodium 143 Potassium 4.7 Chloride 106 Carbon Dioxide 20 L Anion Gap 17 H BUN 55 H D Creatinine 5.2 H D Troponin I 0.53 H 08/28/16 08/28/16 08:25 17:59 WBC Hgb Sodium 143 Potassium 5.0 Chloride 107 Carbon Dioxide 21 Anion Gap 15 BUN Creatinine Troponin I 0.40 H 0.39 H Imaging - Results Chest X-ray: Report Reviewed Problem List - Problems (1) Anxiety Code(s): F41.9 - ANXIETY DISORDER, UNSPECIFIED (2) Atrial fibrillation with tachycardic ventricular rate Code(s): I48.91 - UNSPECIFIED ATRIAL FIBRILLATION (3) ESRD needing dialysis Code(s): N18.6 - END STAGE RENAL DISEASE (4) COPD (chronic obstructive pulmonary disease) Code(s): J44.9 - CHRONIC OBSTRUCTIVE PULMONARY DISEASE, UNSPECIFIED (6) HTN (hypertension) Code(s): I10 - ESSENTIAL (PRIMARY) HYPERTENSION Qualifiers: Hypertension type: essential hypertension Qualified Code(s): I10 - Essential (primary) hypertension (7) Hyperlipidemia Code(s): E78.5 - HYPERLIPIDEMIA, UNSPECIFIED Assessment/Plan Current Medications Generic Name Dose Route Start Last Admin Trade Name Freq PRN Reason Stop Dose Admin Albuterol/Ipratropium 1 amp 08/28/16 08:25 08/28/16 17:22 Duoneb - NEB 1 amp Q4H PRN Administration SHORTNESS OF BREATH Apixaban 2.5 mg 08/28/16 10:00 08/28/16 11:27 Eliquis - PO Not Given BID OBED Aspirin 81 mg 08/28/16 10:00 08/28/16 11:27 Asa - PO 81 mg DAILY OBED Administration Heparin Sodium (Porcine) 1,000 unit 08/28/16 20:45 Heparin - IVPUSH 08/28/16 22:46 Q1H OBED Lorazepam 1 mg 08/28/16 05:55 08/28/16 17:06 Ativan - PO 1 mg TID PRN Administration ANXIETY Metoprolol Succinate 50 mg 08/28/16 10:00 08/28/16 11:27 Toprol Xl - PO 50 mg BID OBED Administration Pantoprazole Sodium 40 mg 08/28/16 10:00 08/28/16 11:27 Protonix - PO 40 mg DAILY OBED Administration Rosuvastatin Calcium 5 mg 08/28/16 22:00 Crestor - PO HS OBED Sertraline HCl 50 mg 08/28/16 10:00 08/28/16 11:27 Zoloft - PO 50 mg DAILY OBED Administration Sevelamer Carbonate 800 mg 08/28/16 08:00 08/28/16 17:36 Renvela - PO Not Given TIDCM OBED Impression 1. ESRD 2. PNA 3. HTN 4. CHF 5. pleural effusion 6. hypothyroidism 7. hyperlipidemia 8. MVP 9. a-fib with rapid vent response Plan - called and discussed with cardio. Pt will be off of cardizem and digoxin. She is now on metoprolol - rate is better controlled - will arrange for HD to be done today at bedside in tele - resume home meds - called HD unit for prescription - HD: 3 hrs, heparin 2000 bolus, 1000 maintenance, 2 k bath, left av graft, aranesp 40 recieved last Wednesday, venofer 50 weekly
[2016-08-28] MEDS: LORazepam 1 MG TABLET PO PRN (17:06)
[2016-08-28] MEDS: ALBUTEROL SO4 2.5/IPRATROPIUM 0.5 INH SOL 3 ML VIAL.NEB. NEB PRN (17:22)
[2016-08-28 18:54] LABS: TROPONIN I 0.39 ng/ml (0.00-0.05)
[2016-08-28] MEDS ORDERED: HEPARIN NA (PORCINE) 5,000 UNITS/ML 1ML VIAL IVPUSH ONE (20:45)
[2016-08-28] MEDS ORDERED: EPOETIN ALFA 2,000 UNITS/1 ML VIAL IVPUSH ONE (20:45)
[2016-08-28] MEDS ORDERED: HEPARIN NA (PORCINE) 5,000 UNITS/ML 1ML VIAL IVPUSH SCH (20:45)
[2016-08-28] MEDS: ROSUVASTATIN CA 5 MG TABLET (FP) PO SCH (21:35)
[2016-08-29 07:13] LABS: BASOPHIL 0.6 % (0-2.0); EOSINOPHIL 0.8 % (0-4.5); MCH 31.7 pg (25.7-33.7); MCHC 32.4 g/dl (32.0-36.0); MEAN CELL VOLUME 97.7 fl (80-96); MEAN PLT VOLUME 8.4 fl (7.5-11.1); NEUTROPHILS 76.7 % (42.8-82.8); PLATELET COUNT 177 K/MM3 (134-434); RDW 20.8 % (11.6-15.6); WHITE BLOOD COUNT 8.6 K/mm3 (4.0-10.0)
[2016-08-29 07:57] LABS: CALCIUM 8.4 mg/dL (8.5-10.1); COCKROFT - GAULT 10.132; CREATININE 3.8 mg/dL (0.55-1.02); MAGNESIUM 1.9 mg/dL (1.8-2.4)
[2016-08-29 07:59] LABS: BILIRUBIN,TOTAL 0.6 mg/dL (0.2-1.0)
[2016-08-29] MEDS: SEVELAMER CARBONATE 800 MG TAB (FP) PO SCH ×3 (08:31→17:38)
--- NOTE | 2016-08-29 08:31 | PN ---
Progress Note, Physician History of Present Illness: The patient is an 80 year old white female with significant past medical history of anemia, afib, severe systolic CHF, s/p defibrillator on Eliquis, COPD (on home O2 prn), CAD, s/p stents x3, hypertension, hyperlipidemia, hypothyroidism, and ESRD (on HD MWF) who presents to the ED for palpitations and SOB prior to arrival. Patient reports she was in her usual state of healthy when she developed palpitations and SOB. At time of evaluation, patient reports her SOB has progressively gotten better. Patient denies lightheadedness, diaphoresis, chest pain, jaw pain, shoulder pain, arm pain, nausea, or vomiting. She reports having a few episodes of loose stools today. Denies abdominal pain. She also states 5 days ago her defibrillator went off and she visited her shot bagger 2 days later, where she had an ECG that was normal. The patient denies fever, chills, and cough. Allergies: NDKA Social History: Former smoker (quit 08/2014). No alcohol or drug use reported. Past Surgical History: s/p cardiac stents x 3, defibrillator (09/27/2015) PCP: Dr. Evelyn Swanson Team Coordinator: Dr. Adilson Chris - Current Medication List Current Medications: Active Medications Albuterol/Ipratropium (Duoneb -) 1 amp NEB Q4H PRN PRN Reason: SHORTNESS OF BREATH Last Admin: 08/28/16 17:22 Dose: 1 amp Apixaban (Eliquis -) 2.5 mg PO BID [facility] Last Admin: 08/28/16 21:35 Dose: 2.5 mg Aspirin (Asa -) 81 mg PO DAILY [facility] Last Admin: 08/28/16 11:27 Dose: 81 mg Lorazepam (Ativan -) 1 mg PO TID PRN PRN Reason: ANXIETY Last Admin: 08/28/16 17:06 Dose: 1 mg Metoprolol Succinate (Toprol Xl -) 50 mg PO BID [facility] Last Admin: 08/28/16 21:35 Dose: 50 mg Pantoprazole Sodium (Protonix -) 40 mg PO DAILY [facility] Last Admin: 08/28/16 11:27 Dose: 40 mg Rosuvastatin Calcium (Crestor -) 5 mg PO HS [facility] Last Admin: 08/28/16 21:35 Dose: 5 mg Sertraline HCl (Zoloft -) 50 mg PO DAILY [facility] Last Admin: 08/28/16 11:27 Dose: 50 mg Sevelamer Carbonate (Renvela -) 800 mg PO TIDCM [facility] Last Admin: 08/28/16 17:36 Dose: Not Given - Objective Vital Signs: Vital Signs Temperature 98.8 F 08/29/16 06:00 Pulse Rate 113 H 08/29/16 06:00 Respiratory Rate 18 08/29/16 06:00 Blood Pressure 108/69 08/29/16 06:00 O2 Sat by Pulse Oximetry (%) 99 08/28/16 21:00 Eyes: Yes: WNL, Conjunctiva Clear, EOM Intact HENT: Yes: WNL, Atraumatic, Normocephalic Neck: Yes: WNL, Supple, Trachea Midline Cardiovascular: Yes: Pulse Irregular, S1, S2 Respiratory: Yes: WNL, Regular, CTA Bilaterally Gastrointestinal: Yes: WNL, Normal Bowel Sounds Genitourinary: Yes: WNL Musculoskeletal: Yes: WNL Extremities: Yes: WNL Edema: No Integumentary: Yes: WNL Neurological: Yes: WNL, Alert, Oriented ...Motor Strength: WNL Psychiatric: Yes: WNL Labs: CBC, BMP 08/29/16 06:00 08/29/16 06:00 Assessment/Plan - Problems (1) Anxiety Assessment/Plan: Continue anxiolytics. Code(s): F41.9 - ANXIETY DISORDER, UNSPECIFIED (2) Atrial fibrillation with tachycardic ventricular rate Assessment/Plan: Pt had diltiazem and digoxin discontinued this week. increased Metoprolol ER 50 mg to TID monitoe bp. Patient is poor candidate to be on Cardizem due to low ef also use of amiodarone is questionable due ro copd. Maintain electrolytes WNL. TSH WNL. Maintain hydration. Anxiolytics. Continue all systolic CHF medications (ideally including ACEI and spironolactone , if BUN/Cr and electrolytes allow, and if cleared by nephrology: pt is on hemodialysis 3x/week). Code(s): I48.91 - UNSPECIFIED ATRIAL FIBRILLATION (3) ESRD needing dialysis Assessment/Plan: As discussed with Dr. Zuluaga, can safely hold hemodialysis until tomorrow while HR is better-controlled. Code(s): N18.6 - END STAGE RENAL DISEASE (4) COPD (chronic obstructive pulmonary disease) Assessment/Plan: f/u with basket maker. Code(s): J44.9 - CHRONIC OBSTRUCTIVE PULMONARY DISEASE, UNSPECIFIED (5) Acute on chronic systolic and diastolic heart failure, NYHA class 3 Code(s): I50.43 - ACUTE ON CHRONIC COMBINED SYSTOLIC AND DIASTOLIC HRT FAIL (6) Defibrillator discharge Code(s): Z45.02 - ENCNTR FOR ADJUST AND MGMT OF AUTOMATIC IMPLNTBL CARD DEFIB (7) HTN (hypertension) Code(s): I10 - ESSENTIAL (PRIMARY) HYPERTENSION Qualifiers: Hypertension type: essential hypertension Qualified Code(s): I10 - Essential (primary) hypertension (8) Hyperlipidemia Code(s): E78.5 - HYPERLIPIDEMIA, UNSPECIFIED (9) Palpitations Code(s): R00.2 - PALPITATIONS (10) Panic anxiety syndrome Code(s): F41.0 - PANIC DISORDER WITHOUT AGORAPHOBIA (11) Shortness of breath Code(s): R06.02 - SHORTNESS OF BREATH (12) CAD (coronary artery disease) Code(s): I25.10 - ATHSCL HEART DISEASE OF [place] CORONARY ARTERY W/O ANG PCTRS Qualifiers: (13) Status post coronary artery stent placement Code(s): Z95.5 - PRESENCE OF CORONARY ANGIOPLASTY IMPLANT AND GRAFT (14) Thyroid disorder Code(s): E07.9 - DISORDER OF THYROID, UNSPECIFIED
[2016-08-29] MEDS: APIXABAN 2.5 MG TABLET PO SCH ×2 (10:49→21:50)
[2016-08-29] MEDS: SERTRALINE HCL 50 MG TABLET (FP) PO SCH (10:49)
[2016-08-29] MEDS: METOPROLOL SUCCINATE 50 MG TAB.SR.24H (FP) PO SCH ×3 (10:49→21:50)
[2016-08-29] MEDS: ASPIRIN 81 MG CHEWABLE TABLETS PO SCH (10:50)
[2016-08-29] MEDS: PANTOPRAZOLE 40 MG TABLET (FP) PO SCH (10:50)
--- NOTE | 2016-08-29 13:21 | PN ---
Progress Note (short form) - Note Progress Note: RENAL Pt is awake and alert was shocked and came to hospital had rapid afib which ahs been difficult to control with esrd and copd Last Vital Signs Temp Pulse Resp BP Pulse Ox 98.8 F 113 H 18 108/69 99 08/29/16 06:00 08/29/16 06:00 08/29/16 06:00 08/29/16 06:00 08/28/16 21:00 lungs rhonchi bilat cvs s1s2 atrial fibrillation abd soft ext no edema neuro a+ox3 Current Medications Generic Name Dose Route Start Last Admin Trade Name Freq PRN Reason Stop Dose Admin Albuterol/Ipratropium 1 amp 08/28/16 08:25 08/28/16 17:22 Duoneb - NEB 1 amp Q4H PRN Administration SHORTNESS OF BREATH Apixaban 2.5 mg 08/28/16 10:00 08/29/16 10:49 Eliquis - PO 2.5 mg BID OBED Administration Aspirin 81 mg 08/28/16 10:00 08/29/16 10:50 Asa - PO 81 mg DAILY OBED Administration Lorazepam 1 mg 08/28/16 05:55 08/28/16 17:06 Ativan - PO 1 mg TID PRN Administration ANXIETY Metoprolol Succinate 50 mg 08/29/16 08:45 08/29/16 10:49 Toprol Xl - PO 50 mg TID OBED Administration Pantoprazole Sodium 40 mg 08/28/16 10:00 08/29/16 10:50 Protonix - PO 40 mg DAILY OBED Administration Rosuvastatin Calcium 5 mg 08/28/16 22:00 08/28/16 21:35 Crestor - PO 5 mg HS OBED Administration Sertraline HCl 50 mg 08/28/16 10:00 08/29/16 10:49 Zoloft - PO 50 mg DAILY OBED Administration Sevelamer Carbonate 800 mg 08/28/16 08:00 08/29/16 08:31 Renvela - PO 800 mg TIDCM OBED Administration CBC, BMP 08/29/16 06:00 08/29/16 06:00 Impression 1. ESRD 2. PNA 3. HTN 4. CHF 5. pleural effusion 6. hypothyroidism 7. hyperlipidemia 8. MVP 9. a-fib with rapid vent response 10 h/o defibrillator placement Plan cardiology to determine bestmed regimen to use would see if a non dialyzable beta kyrie is better continue AC and benzo MV
--- NOTE | 2016-08-29 15:52 | PN ---
Physical Exam: SUBJECTIVE: Patient seen and examined at bedside. Palpitations have resolved but feels SOB with walking. OBJECTIVE: Vital Signs Period Temp Pulse Resp BP Sys/Lynch Pulse Ox Last 24 Hr 97.5 F-99.2 F 59-139 18-20 96-128/43-100 99-100 GENERAL: The patient is awake, alert, and fully oriented, in no acute distress. LUNGS: Breath sounds equal, clear to auscultation bilaterally, no wheezes, no crackles, no accessory muscle use. HEART: Irregular, S1, S2 without murmur, rub or gallop. ABDOMEN: Soft, nontender, nondistended, normoactive bowel sounds, no guarding, no rebound EXTREMITIES: 2+ pulses, warm, well-perfused, no edema. NEUROLOGICAL: Cranial nerves II through XII grossly intact. Normal speech, gait not observed. Laboratory Results - last 24 hr 08/28/16 08/29/16 08/29/16 17:59 06:00 06:00 WBC 8.6 RBC 3.12 L Hgb 9.9 L Hct 30.5 L MCV 97.7 H MCHC 32.4 RDW 20.8 H Plt Count 177 MPV 8.4 Neutrophils % 76.7 Lymphocytes % 13.0 D Monocytes % 8.9 Eosinophils % 0.8 Basophils % 0.6 Sodium 145 Potassium 4.1 Chloride 103 Carbon Dioxide 29 D Anion Gap 13 BUN 29 H D Creatinine 3.8 H D Creat Clearance w eGFR 11.37 Random Glucose 97 Calcium 8.4 L Magnesium 1.9 Total Bilirubin 0.6 D AST 30 D ALT 39 Alkaline Phosphatase 123 H Creatine Kinase 34 Troponin I 0.39 H Total Protein 6.0 L Albumin 3.0 L Active Medications Generic Name Dose Route Start Last Admin Trade Name Freq PRN Reason Stop Dose Admin Albuterol/Ipratropium 1 amp 08/28/16 08:25 08/28/16 17:22 Duoneb - NEB 1 amp Q4H PRN Administration SHORTNESS OF BREATH Apixaban 2.5 mg 08/28/16 10:00 08/29/16 10:49 Eliquis - PO 2.5 mg BID OBED Administration Aspirin 81 mg 08/28/16 10:00 08/29/16 10:50 Asa - PO 81 mg DAILY OBED Administration Lorazepam 1 mg 08/28/16 05:55 08/28/16 17:06 Ativan - PO 1 mg TID PRN Administration ANXIETY Metoprolol Succinate 50 mg 08/29/16 08:45 08/29/16 15:28 Toprol Xl - PO 50 mg TID OBED Administration Pantoprazole Sodium 40 mg 08/28/16 10:00 08/29/16 10:50 Protonix - PO 40 mg DAILY OBED Administration Rosuvastatin Calcium 5 mg 08/28/16 22:00 08/28/16 21:35 Crestor - PO 5 mg HS OBED Administration Sertraline HCl 50 mg 08/28/16 10:00 08/29/16 10:49 Zoloft - PO 50 mg DAILY OBED Administration Sevelamer Carbonate 800 mg 08/28/16 08:00 08/29/16 12:00 Renvela - PO 800 mg TIDCM OBED Administration ASSESSMENT/PLAN 80 year-old woman with a significant PMH of HTN, HLD, CAD s/p NH s/p stents x 3 , biventricular heart failure s/p AICD, afib on Eliquis, COPD, ESRD on HD (M,W,F ), and anxiety Admitted for afib with RVR. Atrial fibrillation with RVR Demand ischemia --meds were changed earlier this week by Dr. Lopez when he saw patient in his office after her AICD fired; he stopped diltiazem and dig, and started metoprolol --rate continues to be elevated to 140s and patient is symptomatic with SOB with minimal exertion --troponins down-trending 0.53-->.40-->.39, likely demand ischemia from afib and ESRD --cardiology increased metoprolol to TID --continue telemetry monitoring --daily ECGs --continue Eliquis Biventricular heart failure --08/28 Echo: LV severely reduced, severe global hypokinesis; RV moderately reduced; LA severely dilated; moderate to severe MR; mild TR; severe pHTN; moderate to severe AI; echodensity on AV probably artifact, no clinical suspicion for endocarditis --not presently on diuretics ESRD on HD (M,W,F) --HD yesterday removed 1.5L --continue Renvela Hypertension --BP well-controlled --continue metoprolol Hyperlipidemia --continue Crestor CAD --continue metoprolol, ASA, statin COPD --continue duonebs Anxiety --continue Zoloft, lorazepam PRN F/E/N Fluids: PO intake adequate Electrolytes: replege as indicated Nutrition: renal diet DVT prophylaxis: on Eliquis, oob, ambulation Physical therapy evaluation Daily PT Dispo: continues to require inpatient care. Full Code. Visit type - Emergency Visit Emergency Visit: Yes ED Registration Date: 08/28/16 Care time: The patient presented to the Emergency Department on the above date and was hospitalized for further evaluation of their emergent condition. - New Patient This patient is new to me today: Yes Date on this admission: 08/29/16 - Critical Care Critical Care patient: No
[2016-08-29] MEDS: ALBUTEROL SO4 2.5/IPRATROPIUM 0.5 INH SOL 3 ML VIAL.NEB. NEB PRN ×2 (19:38→23:37)
[2016-08-29] MEDS: ROSUVASTATIN CA 5 MG TABLET (FP) PO SCH (21:50)
[2016-08-29] MEDS: LORazepam 1 MG TABLET PO PRN (22:16)
[2016-08-30] MEDS: ALBUTEROL SO4 2.5/IPRATROPIUM 0.5 INH SOL 3 ML VIAL.NEB. NEB PRN ×5 (04:18→22:15)
[2016-08-30] MEDS: METOPROLOL SUCCINATE 50 MG TAB.SR.24H (FP) PO SCH (06:35)
[2016-08-30] MEDS: SEVELAMER CARBONATE 800 MG TAB (FP) PO SCH ×3 (08:02→16:55)
[2016-08-30] MEDS: LORazepam 1 MG TABLET PO PRN ×2 (08:03→21:08)
--- NOTE | 2016-08-30 08:26 | PN ---
Progress Note, Physician History of Present Illness: The patient is an 80 year old white female with significant past medical history of anemia, afib, severe systolic CHF, s/p defibrillator on Eliquis, COPD (on home O2 prn), CAD, s/p stents x3, hypertension, hyperlipidemia, hypothyroidism, and ESRD (on HD MWF) who presents to the ED for palpitations and SOB prior to arrival. Patient reports she was in her usual state of healthy when she developed palpitations and SOB. At time of evaluation, patient reports her SOB has progressively gotten better. Patient denies lightheadedness, diaphoresis, chest pain, jaw pain, shoulder pain, arm pain, nausea, or vomiting. She reports having a few episodes of loose stools today. Denies abdominal pain. She also states 5 days ago her defibrillator went off and she visited her calender tender 2 days later, where she had an ECG that was normal. The patient denies fever, chills, and cough. Allergies: NDKA Social History: Former smoker (quit 08/2014). No alcohol or drug use reported. Past Surgical History: s/p cardiac stents x 3, defibrillator (09/27/2015) PCP: Dr. Evelyn Swanson Splitter Tender: Dr. Adilson Chris - Current Medication List Current Medications: Active Medications Albuterol/Ipratropium (Duoneb -) 1 amp NEB Q4H PRN PRN Reason: SHORTNESS OF BREATH Last Admin: 08/30/16 08:00 Dose: 1 amp Apixaban (Eliquis -) 2.5 mg PO BID [facility] Last Admin: 08/29/16 21:50 Dose: 2.5 mg Aspirin (Asa -) 81 mg PO DAILY [facility] Last Admin: 08/29/16 10:50 Dose: 81 mg Lorazepam (Ativan -) 1 mg PO TID PRN PRN Reason: ANXIETY Last Admin: 08/30/16 08:03 Dose: 1 mg Metoprolol Succinate (Toprol Xl -) 100 mg PO BID [facility] Metoprolol Succinate (Toprol Xl -) 50 mg PO ONCE ONE Stop: 08/30/16 08:31 Pantoprazole Sodium (Protonix -) 40 mg PO DAILY [facility] Last Admin: 08/29/16 10:50 Dose: 40 mg Rosuvastatin Calcium (Crestor -) 5 mg PO HS [facility] Last Admin: 08/29/16 21:50 Dose: 5 mg Sertraline HCl (Zoloft -) 50 mg PO DAILY [facility] Last Admin: 08/29/16 10:49 Dose: 50 mg Sevelamer Carbonate (Renvela -) 800 mg PO TIDCM [facility] Last Admin: 08/30/16 08:02 Dose: 800 mg - Objective Vital Signs: Vital Signs Temperature 100 F H 08/30/16 05:57 Pulse Rate 128 H 08/30/16 05:57 Respiratory Rate 22 08/30/16 05:57 Blood Pressure 115/49 08/30/16 05:57 O2 Sat by Pulse Oximetry (%) 100 08/29/16 21:00 Eyes: Yes: WNL, Conjunctiva Clear, EOM Intact HENT: Yes: WNL, Atraumatic, Normocephalic Neck: Yes: WNL, Supple, Trachea Midline Cardiovascular: Yes: Pulse Irregular, S1, S2 Respiratory: Yes: WNL, Regular, CTA Bilaterally Gastrointestinal: Yes: WNL, Normal Bowel Sounds Genitourinary: Yes: WNL Musculoskeletal: Yes: WNL Extremities: Yes: WNL Edema: No Integumentary: Yes: WNL Neurological: Yes: WNL, Alert, Oriented ...Motor Strength: WNL Psychiatric: Yes: WNL Labs: CBC, BMP 08/29/16 06:00 08/29/16 06:00 Assessment/Plan - Problems (1) Anxiety Assessment/Plan: Continue anxiolytics. Code(s): F41.9 - ANXIETY DISORDER, UNSPECIFIED (2) Atrial fibrillation with tachycardic ventricular rate Assessment/Plan: Pt had diltiazem and digoxin discontinued this week. increased Metoprolol ER 100 mg to BID monitore bp. Patient is poor candidate to be on Cardizem due to low ef also use of amiodarone is questionable due ro copd. Maintain electrolytes WNL. TSH WNL. Maintain hydration. Anxiolytics. Continue all systolic CHF medications (ideally including ACEI and spironolactone , if BUN/Cr and electrolytes allow, and if cleared by nephrology: pt is on hemodialysis 3x/week). Code(s): I48.91 - UNSPECIFIED ATRIAL FIBRILLATION (3) ESRD needing dialysis Assessment/Plan: As discussed with Dr. Zuluaga, can safely hold hemodialysis until tomorrow while HR is better-controlled. Code(s): N18.6 - END STAGE RENAL DISEASE (4) COPD (chronic obstructive pulmonary disease) Assessment/Plan: f/u with leather splitter. Code(s): J44.9 - CHRONIC OBSTRUCTIVE PULMONARY DISEASE, UNSPECIFIED (5) Acute on chronic systolic and diastolic heart failure, NYHA class 3 Code(s): I50.43 - ACUTE ON CHRONIC COMBINED SYSTOLIC AND DIASTOLIC HRT FAIL (6) Defibrillator discharge Code(s): Z45.02 - ENCNTR FOR ADJUST AND MGMT OF AUTOMATIC IMPLNTBL CARD DEFIB (7) HTN (hypertension) Code(s): I10 - ESSENTIAL (PRIMARY) HYPERTENSION Qualifiers: Hypertension type: essential hypertension Qualified Code(s): I10 - Essential (primary) hypertension (8) Hyperlipidemia Code(s): E78.5 - HYPERLIPIDEMIA, UNSPECIFIED (9) Palpitations Code(s): R00.2 - PALPITATIONS (10) Panic anxiety syndrome Code(s): F41.0 - PANIC DISORDER WITHOUT AGORAPHOBIA (11) Shortness of breath Code(s): R06.02 - SHORTNESS OF BREATH (12) CAD (coronary artery disease) Code(s): I25.10 - ATHSCL HEART DISEASE OF [place] CORONARY ARTERY W/O ANG PCTRS Qualifiers: (13) Status post coronary artery stent placement Code(s): Z95.5 - PRESENCE OF CORONARY ANGIOPLASTY IMPLANT AND GRAFT (14) Thyroid disorder Code(s): E07.9 - DISORDER OF THYROID, UNSPECIFIED
[2016-08-30] MEDS ORDERED: METOPROLOL SUCCINATE 50 MG TAB.SR.24H (FP) PO ONE (08:30)
[2016-08-30] MEDS: PANTOPRAZOLE 40 MG TABLET (FP) PO SCH (10:34)
[2016-08-30] MEDS: ASPIRIN 81 MG CHEWABLE TABLETS PO SCH (10:34)
[2016-08-30] MEDS: APIXABAN 2.5 MG TABLET PO SCH ×2 (10:34→21:08)
[2016-08-30] MEDS: SERTRALINE HCL 50 MG TABLET (FP) PO SCH (10:34)
[2016-08-30] MEDS ORDERED: PT OWN MED DRAWER 7, Y5N ONE (10:43)
--- NOTE | 2016-08-30 12:18 | PN ---
Progress Note (short form) - Note Progress Note: RENAL Pt is awake and alert feeling well Last Vital Signs Temp Pulse Resp BP Pulse Ox 100 F H 128 H 22 115/49 99 08/30/16 05:57 08/30/16 05:57 08/30/16 10:00 08/30/16 05:57 08/30/16 10:00 lungs rhonchi bilat cvs s1s2 irreg abd soft ext no edema neuro a+ox3 CBC, BMP 08/29/16 06:00 08/29/16 06:00 Current Medications Generic Name Dose Route Start Last Admin Trade Name Freq PRN Reason Stop Dose Admin Albuterol/Ipratropium 1 amp 08/28/16 08:25 08/30/16 08:00 Duoneb - NEB 1 amp Q4H PRN Administration SHORTNESS OF BREATH Apixaban 2.5 mg 08/28/16 10:00 08/30/16 10:34 Eliquis - PO 2.5 mg BID OBED Administration Aspirin 81 mg 08/28/16 10:00 08/30/16 10:34 Asa - PO 81 mg DAILY OBED Administration Docusate Sodium 300 mg 08/30/16 22:00 Colace - PO HS OBED Lorazepam 1 mg 08/28/16 05:55 08/30/16 08:03 Ativan - PO 1 mg TID PRN Administration ANXIETY Metoprolol Succinate 100 mg 08/30/16 22:00 Toprol Xl - PO BID OBED Pantoprazole Sodium 40 mg 08/28/16 10:00 08/30/16 10:34 Protonix - PO 40 mg DAILY OBED Administration Polyethylene Glycol 17 gm 08/30/16 22:00 Miralax (For Daily Use) - PO BID OBED Rosuvastatin Calcium 5 mg 08/28/16 22:00 08/29/16 21:50 Crestor - PO 5 mg HS OBED Administration Sertraline HCl 50 mg 08/28/16 10:00 08/30/16 10:34 Zoloft - PO 50 mg DAILY OBED Administration Sevelamer Carbonate 800 mg 08/28/16 08:00 08/30/16 08:02 Renvela - PO 800 mg TIDCM OBED Administration Impression 1. ESRD 2. PNA 3. HTN 4. CHF 5. pleural effusion 6. hypothyroidism 7. hyperlipidemia 8. MVP 9. a-fib with rapid vent response 10 h/o defibrillator placement Plan cardiology to determine best med regimen to use would see if a non dialyzable beta kyrie is better continue AC and benzo re hd tomorrow MV
[2016-08-30] MEDS ORDERED: METOPROLOL SUCCINATE 50 MG TAB.SR.24H (FP) PO STA (12:29)
--- NOTE | 2016-08-30 17:59 | PN ---
Physical Exam: SUBJECTIVE: Patient seen and examined at bedside. Feels SOB. OBJECTIVE: Vital Signs Period Temp Pulse Resp BP Sys/Lynch Pulse Ox Last 24 Hr 97.5 F-100 F 77-130 20-24 111-127/49-59 99-100 GENERAL: The patient is awake, alert, and fully oriented, in no acute distress. LUNGS: Breath sounds equal, clear to auscultation bilaterally, no wheezes, no crackles, no accessory muscle use. HEART: Irregular, S1, S2 without murmur, rub or gallop. ABDOMEN: Soft, nontender, nondistended, normoactive bowel sounds, no guarding, no rebound EXTREMITIES: 2+ pulses, warm, well-perfused, no edema. NEUROLOGICAL: Cranial nerves II through XII grossly intact. Normal speech, gait not observed. Active Medications Generic Name Dose Route Start Last Admin Trade Name Freq PRN Reason Stop Dose Admin Albuterol/Ipratropium 1 amp 08/28/16 08:25 08/30/16 08:00 Duoneb - NEB 1 amp Q4H PRN Administration SHORTNESS OF BREATH Apixaban 2.5 mg 08/28/16 10:00 08/30/16 10:34 Eliquis - PO 2.5 mg BID OBED Administration Aspirin 81 mg 08/28/16 10:00 08/30/16 10:34 Asa - PO 81 mg DAILY OBED Administration Docusate Sodium 300 mg 08/30/16 22:00 Colace - PO HS OBED Heparin Sodium (Porcine) 1,000 unit 08/30/16 12:22 Heparin - IVPUSH 08/30/16 12:23 ONCE ONE Lorazepam 1 mg 08/28/16 05:55 08/30/16 08:03 Ativan - PO 1 mg TID PRN Administration ANXIETY Metoprolol Succinate 100 mg 08/30/16 22:00 Toprol Xl - PO BID OBED Pantoprazole Sodium 40 mg 08/28/16 10:00 08/30/16 10:34 Protonix - PO 40 mg DAILY OBED Administration Polyethylene Glycol 17 gm 08/30/16 22:00 Miralax (For Daily Use) - PO BID OBED Rosuvastatin Calcium 5 mg 08/28/16 22:00 08/29/16 21:50 Crestor - PO 5 mg HS OBED Administration Sertraline HCl 50 mg 08/28/16 10:00 08/30/16 10:34 Zoloft - PO 50 mg DAILY OBED Administration Sevelamer Carbonate 800 mg 08/28/16 08:00 08/30/16 16:55 Renvela - PO 800 mg TIDCM OBED Administration ASSESSMENT/PLAN 80 year-old woman with a significant PMH of HTN, HLD, CAD s/p [place] s/p stents x 3 , biventricular heart failure s/p AICD, afib on Eliquis, COPD, ESRD on HD (M,W,F ), and anxiety. Admitted for afib with RVR. Atrial fibrillation with RVR Demand ischemia --meds were changed last week by Dr. Lopez when he saw patient in his office after her AICD fired; he stopped diltiazem and dig, and started metoprolol --rate continues to be elevated and patient is symptomatic with SOB --troponins down-trending 0.53-->.40-->.39, likely demand ischemia from afib and ESRD --cardiology increased beta kyrie to Toprol XL 100mg BID --continue telemetry monitoring --daily ECGs --continue Eliquis Biventricular heart failure --08/28 Echo: LV severely reduced, severe global hypokinesis; RV moderately reduced; LA severely dilated; moderate to severe MR; mild TR; severe pHTN; moderate to severe AI; echodensity on AV probably artifact, no clinical suspicion for endocarditis --not presently on diuretics ESRD on HD (M,W,F) --HD tomorrow --continue Renvela Hypertension --BP well-controlled --continue metoprolol Hyperlipidemia --continue Crestor CAD --continue Toprol XL, ASA, statin COPD --continue duonebs Anxiety --continue Zoloft, lorazepam PRN F/E/N Fluids: PO intake adequate Electrolytes: replete as indicated Nutrition: renal diet DVT prophylaxis: on Eliquis, oob, ambulation Physical therapy evaluation Daily PT Dispo: continues to require inpatient care. Full Code. Visit type - Emergency Visit Emergency Visit: Yes ED Registration Date: 08/28/16 Care time: The patient presented to the Emergency Department on the above date and was hospitalized for further evaluation of their emergent condition. - New Patient This patient is new to me today: No - Critical Care Critical Care patient: No
[2016-08-30] MEDS: DOCUSATE SODIUM 100 MG CAPSULE (FP) PO SCH (21:08)
[2016-08-30] MEDS: METOPROLOL SUCCINATE 100 MG TAB.SR.24H (FP) PO SCH (21:08)
[2016-08-30] MEDS: ROSUVASTATIN CA 5 MG TABLET (FP) PO SCH (21:08)
[2016-08-30] MEDS: POLYETHYLENE GLYCOL 3350 119 GM BTL PO SCH (21:09)
[2016-08-31] MEDS ORDERED: LORazepam 1 MG TABLET PO ONE (02:06)
[2016-08-31] MEDS: ALBUTEROL SO4 2.5/IPRATROPIUM 0.5 INH SOL 3 ML VIAL.NEB. NEB PRN ×4 (06:05→21:54)
--- NOTE | 2016-08-31 08:10 | EKG ---
Test Reason : Blood Pressure : / mmHG Vent. Rate : 121 BPM Atrial Rate : 138 BPM P-R Int : 000 ms QRS Dur : 120 ms QT Int : 300 ms P-R-T Axes : 000 148 028 degrees QTc Int : 426 ms ATRIAL FLUTTER WITH VARIABLE A-V BLOCK RIGHT AXIS DEVIATION SEPTAL INFARCT (CITED ON OR BEFORE 15-MAY-2016) ABNORMAL ECG WHEN COMPARED WITH ECG OF 28-AUG-2016 01:49, T WAVE INVERSION NOW EVIDENT IN LATERAL LEADS Confirmed by TRISH ISLVA MD ([id number]) on 08/31/2016 8:10:04 AM Referred By: Flor WORKMAN Confirmed By:TRISH SILVA MD
[2016-08-31] MEDS: SEVELAMER CARBONATE 800 MG TAB (FP) PO SCH ×4 (08:30→16:36)
--- NOTE | 2016-08-31 08:49 | PN ---
Progress Note, Physician History of Present Illness: The patient is an 80 year old white female with significant past medical history of anemia, afib, severe systolic CHF, s/p defibrillator on Eliquis, COPD (on home O2 prn), CAD, s/p stents x3, hypertension, hyperlipidemia, hypothyroidism, and ESRD (on HD MWF) who presents to the ED for palpitations and SOB prior to arrival. Patient reports she was in her usual state of healthy when she developed palpitations and SOB. At time of evaluation, patient reports her SOB has progressively gotten better. Patient denies lightheadedness, diaphoresis, chest pain, jaw pain, shoulder pain, arm pain, nausea, or vomiting. She reports having a few episodes of loose stools today. Denies abdominal pain. 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 The patient denies fever, chills, and cough. Allergies: NDKA Social History: Former smoker (quit 08/2014). No alcohol or drug use reported. Past Surgical History: s/p cardiac stents x 3, defibrillator (09/27/2015) PCP: Dr. Evelyn Swanson [employer] Tester: Dr. Adilson Chris - Current Medication List Current Medications: Active Medications Albuterol/Ipratropium (Duoneb -) 1 amp NEB Q4H PRN PRN Reason: SHORTNESS OF BREATH Last Admin: 08/31/16 06:05 Dose: 1 amp Apixaban (Eliquis -) 2.5 mg PO BID [facility] Last Admin: 08/30/16 21:08 Dose: 2.5 mg Aspirin (Asa -) 81 mg PO DAILY [facility] Last Admin: 08/30/16 10:34 Dose: 81 mg Docusate Sodium (Colace -) 300 mg PO HS [facility] Last Admin: 08/30/16 21:08 Dose: Not Given Heparin Sodium (Porcine) (Heparin -) 1,000 unit IVPUSH ONCE ONE Stop: 08/30/16 12:23 Lorazepam (Ativan -) 1 mg PO TID PRN PRN Reason: ANXIETY Last Admin: 08/30/16 21:08 Dose: 1 mg Metoprolol Succinate (Toprol Xl -) 100 mg PO BID [facility] Last Admin: 05/28/17 21:08 Dose: 100 mg Pantoprazole Sodium (Protonix -) 40 mg PO DAILY [facility] Last Admin: 08/30/16 10:34 Dose: 40 mg Polyethylene Glycol (Miralax (For Daily Use) -) 17 gm PO BID [facility] Last Admin: 08/30/16 21:09 Dose: Not Given Rosuvastatin Calcium (Crestor -) 5 mg PO HS [facility] Last Admin: 08/30/16 21:08 Dose: 5 mg Sertraline HCl (Zoloft -) 50 mg PO DAILY [facility] Last Admin: 08/30/16 10:34 Dose: 50 mg Sevelamer Carbonate (Renvela -) 800 mg PO TIDCM [facility] Last Admin: 08/30/16 16:55 Dose: 800 mg - Objective Vital Signs: Vital Signs Temperature 97.4 F L 08/31/16 06:00 Pulse Rate 135 H 08/31/16 06:00 Respiratory Rate 20 08/31/16 06:00 Blood Pressure 111/66 08/31/16 06:00 O2 Sat by Pulse Oximetry (%) 99 08/30/16 21:00 Eyes: Yes: WNL, Conjunctiva Clear, EOM Intact HENT: Yes: WNL, Atraumatic, Normocephalic Neck: Yes: WNL, Supple, Trachea Midline Cardiovascular: Yes: WNL, Pulse Irregular, S1, S2 Respiratory: Yes: WNL, Regular, CTA Bilaterally Gastrointestinal: Yes: WNL, Normal Bowel Sounds Genitourinary: Yes: WNL Musculoskeletal: Yes: WNL Extremities: Yes: WNL Edema: No Integumentary: Yes: WNL Neurological: Yes: WNL, Alert, Oriented ...Motor Strength: WNL Psychiatric: Yes: WNL Labs: CBC, BMP 08/29/16 06:00 08/29/16 06:00 Assessment/Plan - Problems (1) Anxiety Assessment/Plan: Continue anxiolytics. Code(s): F41.9 - ANXIETY DISORDER, UNSPECIFIED (2) Atrial fibrillation with tachycardic ventricular rate Assessment/Plan: Pt had diltiazem and digoxin discontinued this week. Patient is poor candidate to be on Cardizem due to low ef also use of amiodarone is questionable due ro copd. tolerating Metoprolol ER 100 mg to BID monitore bp. Maintain electrolytes WNL. TSH WNL. Maintain hydration. Anxiolytics. Continue all systolic CHF medications (ideally including ACEI and spironolactone , if BUN/Cr and electrolytes allow, and if cleared by nephrology: pt is on hemodialysis 3x/week). Code(s): I48.91 - UNSPECIFIED ATRIAL FIBRILLATION (3) ESRD needing dialysis Assessment/Plan: As discussed with Dr. Zuluaga, can safely hold hemodialysis until tomorrow while HR is better-controlled. Code(s): N18.6 - END STAGE RENAL DISEASE (4) COPD (chronic obstructive pulmonary disease) Assessment/Plan: f/u with paper cutter. Code(s): J44.9 - CHRONIC OBSTRUCTIVE PULMONARY DISEASE, UNSPECIFIED (5) Acute on chronic systolic and diastolic heart failure, NYHA class 3 Code(s): I50.43 - ACUTE ON CHRONIC COMBINED SYSTOLIC AND DIASTOLIC HRT FAIL (6) Defibrillator discharge Code(s): Z45.02 - ENCNTR FOR ADJUST AND MGMT OF AUTOMATIC IMPLNTBL CARD DEFIB (7) HTN (hypertension) Code(s): I10 - ESSENTIAL (PRIMARY) HYPERTENSION Qualifiers: Hypertension type: essential hypertension Qualified Code(s): I10 - Essential (primary) hypertension (8) Hyperlipidemia Code(s): E78.5 - HYPERLIPIDEMIA, UNSPECIFIED (9) Palpitations Code(s): R00.2 - PALPITATIONS (10) Panic anxiety syndrome Code(s): F41.0 - PANIC DISORDER WITHOUT AGORAPHOBIA (11) Shortness of breath Code(s): R06.02 - SHORTNESS OF BREATH (12) CAD (coronary artery disease) Code(s): I25.10 - ATHSCL HEART DISEASE OF [place] CORONARY ARTERY W/O ANG PCTRS Qualifiers: (13) Status post coronary artery stent placement Code(s): Z95.5 - PRESENCE OF CORONARY ANGIOPLASTY IMPLANT AND GRAFT (14) Thyroid disorder Code(s): E07.9 - DISORDER OF THYROID, UNSPECIFIED
[2016-08-31] MEDS ORDERED: HEPARIN NA (PORCINE) 5,000 UNITS/ML 1ML VIAL IVPUSH ONE (09:15)
[2016-08-31] MEDS: POLYETHYLENE GLYCOL 3350 119 GM BTL PO SCH ×2 (10:02→22:26)
[2016-08-31] MEDS: LORazepam 1 MG TABLET PO PRN (10:04)
[2016-08-31 11:45] LABS: BASOPHIL 0.4 % (0-2.0); EOSINOPHIL 0.2 % (0-4.5); MCH 31.6 pg (25.7-33.7); MCHC 32.3 g/dl (32.0-36.0); MEAN PLT VOLUME 9.2 fl (7.5-11.1); NEUTROPHILS 78.7 % (42.8-82.8); PLATELET COUNT 197 K/MM3 (134-434); RDW 20.8 % (11.6-15.6); WHITE BLOOD COUNT 10.3 K/mm3 (4.0-10.0)
[2016-08-31 11:53] LABS: ALBUMIN 2.5 g/dl (3.4-5.0); BILIRUBIN,TOTAL 0.5 mg/dL (0.2-1.0); CALCIUM 7.8 mg/dL (8.5-10.1); COCKROFT - GAULT 6.562; CREATININE 6.1 mg/dL (0.55-1.02); MAGNESIUM 2.1 mg/dL (1.8-2.4); PHOSPHOROUS 5.3 mg/dL (2.5-4.9); TOT PROT 5.8 g/dl (6.4-8.2)
--- NOTE | 2016-08-31 12:38 | PN ---
Progress Note (short form) - Note Progress Note: RENAL Pt is awake and alert dyspneic today. But already feeling better with HD Last Vital Signs Temp Pulse Resp BP Pulse Ox 97.4 F L 135 H 20 111/66 99 08/31/16 06:00 08/31/16 06:00 08/31/16 06:00 08/31/16 06:00 08/30/16 21:00 lungs rhonchi bilat cvs s1s2 irreg abd soft ext no edema neuro a+ox3 CBC, BMP 08/31/16 10:40 08/31/16 10:40 Current Medications Generic Name Dose Route Start Last Admin Trade Name Freq PRN Reason Stop Dose Admin Albuterol/Ipratropium 1 amp 08/28/16 08:25 08/31/16 10:24 Duoneb - NEB 1 amp Q4H PRN Administration SHORTNESS OF BREATH Apixaban 2.5 mg 08/28/16 10:00 08/30/16 21:08 Eliquis - PO 2.5 mg BID OBED Administration Aspirin 81 mg 08/28/16 10:00 08/30/16 10:34 Asa - PO 81 mg DAILY OBED Administration Docusate Sodium 300 mg 08/30/16 22:00 08/30/16 21:08 Colace - PO Not Given HS OBED Lorazepam 1 mg 08/28/16 05:55 08/31/16 10:04 Ativan - PO 1 mg TID PRN Administration ANXIETY Metoprolol Succinate 100 mg 08/30/16 22:00 08/30/16 21:08 Toprol Xl - PO 100 mg BID OBED Administration Pantoprazole Sodium 40 mg 08/28/16 10:00 08/30/16 10:34 Protonix - PO 40 mg DAILY OBED Administration Polyethylene Glycol 17 gm 08/30/16 22:00 08/30/16 21:09 Miralax (For Daily Use) - PO Not Given BID OBED Rosuvastatin Calcium 5 mg 08/28/16 22:00 08/30/16 21:08 Crestor - PO 5 mg HS OBED Administration Sertraline HCl 50 mg 08/28/16 10:00 08/30/16 10:34 Zoloft - PO 50 mg DAILY OBED Administration Sevelamer Carbonate 800 mg 08/28/16 08:00 08/30/16 16:55 Renvela - PO 800 mg TIDCM OBED Administration Impression 1. ESRD 2. PNA 3. HTN 4. CHF 5. pleural effusion 6. hypothyroidism 7. hyperlipidemia 8. MVP 9. a-fib with rapid vent response 10 h/o defibrillator placement Plan we are trying to remove 2 liters which for her size is the max continue current medications could consider repeating troponin MV
--- NOTE | 2016-08-31 13:38 | PN ---
Physical Exam: SUBJECTIVE: Patient seen and examined at bedside. HD ongoing. Resting comfortably. [place] SOB this morning but better now. OBJECTIVE: Vital Signs Period Temp Pulse Resp BP Sys/Lynch Pulse Ox Last 24 Hr 97.4 F-98.9 F 63-135 18-20 100-137/45-93 90-99 GENERAL: The patient is awake, alert, and fully oriented, in no acute distress. LUNGS: Breath sounds equal, clear to auscultation bilaterally, no wheezes, no crackles, no accessory muscle use. HEART: Irregular, S1, S2 without murmur, rub or gallop. ABDOMEN: Soft, nontender, nondistended, normoactive bowel sounds, no guarding, no rebound EXTREMITIES: 2+ pulses, warm, well-perfused, no edema. NEUROLOGICAL: Cranial nerves II through XII grossly intact. Normal speech, gait not observed. Laboratory Results - last 24 hr 08/31/16 08/31/16 10:40 10:40 WBC 10.3 H RBC 3.05 L Hgb 9.6 L Hct 29.9 L MCV 98.0 H MCHC 32.3 RDW 20.8 H Plt Count 197 MPV 9.2 Neutrophils % 78.7 Lymphocytes % 11.7 Monocytes % 9.0 Eosinophils % 0.2 Basophils % 0.4 Sodium 137 Potassium 4.5 Chloride 98 Carbon Dioxide 23 D Anion Gap 16 BUN 60 H D Creatinine 6.1 H D Creat Clearance w eGFR 6.59 Random Glucose 110 H Calcium 7.8 L Phosphorus 5.3 H D Magnesium 2.1 Total Bilirubin 0.5 AST 39 H D ALT 38 Alkaline Phosphatase 122 H Total Protein 5.8 L Albumin 2.5 L Active Medications Generic Name Dose Route Start Last Admin Trade Name Freq PRN Reason Stop Dose Admin Albuterol/Ipratropium 1 amp 08/28/16 08:25 08/31/16 10:24 Duoneb - NEB 1 amp Q4H PRN Administration SHORTNESS OF BREATH Apixaban 2.5 mg 08/28/16 10:00 08/30/16 21:08 Eliquis - PO 2.5 mg BID OBED Administration Aspirin 81 mg 08/28/16 10:00 08/30/16 10:34 Asa - PO 81 mg DAILY OBED Administration Docusate Sodium 300 mg 08/30/16 22:00 08/30/16 21:08 Colace - PO Not Given HS OBED Lorazepam 1 mg 08/28/16 05:55 08/31/16 10:04 Ativan - PO 1 mg TID PRN Administration ANXIETY Metoprolol Succinate 100 mg 08/30/16 22:00 08/30/16 21:08 Toprol Xl - PO 100 mg BID OBED Administration Pantoprazole Sodium 40 mg 08/28/16 10:00 08/30/16 10:34 Protonix - PO 40 mg DAILY OBED Administration Polyethylene Glycol 17 gm 08/30/16 22:00 08/31/16 10:02 Miralax (For Daily Use) - PO Not Given BID OBED Rosuvastatin Calcium 5 mg 08/28/16 22:00 08/30/16 21:08 Crestor - PO 5 mg HS OBED Administration Sertraline HCl 50 mg 08/28/16 10:00 08/30/16 10:34 Zoloft - PO 50 mg DAILY OBED Administration Sevelamer Carbonate 800 mg 08/28/16 08:00 08/31/16 12:00 Renvela - PO Not Given TIDCM OBED ASSESSMENT/PLAN ASSESSMENT/PLAN 80 year-old woman with a significant PMH of HTN, HLD, CAD s/p [place] s/p stents x 3 , biventricular heart failure s/p AICD, afib on Eliquis, COPD, ESRD on HD (M,W,F ), and anxiety. Admitted for afib with RVR. Atrial fibrillation with RVR Demand ischemia --meds were changed last week by Dr. Lopez when he saw patient in his office after her AICD fired; he stopped diltiazem and dig, and started metoprolol --rate much improved today 60s-80s --troponins down-trending 0.53-->.40-->.39, likely demand ischemia from afib and ESRD --continue Toprol XL 100mg BID --continue telemetry monitoring --continue Eliquis Biventricular heart failure --08/28 Echo: LV severely reduced, severe global hypokinesis; RV moderately reduced; LA severely dilated; moderate to severe MR; mild TR; severe pHTN; moderate to severe AI; echodensity on AV probably artifact, no clinical suspicion for endocarditis --not presently on diuretics ESRD on HD (M,W,F) --HD today --continue Renvela Hypertension --BP well-controlled --continue metoprolol Hyperlipidemia --continue Crestor CAD --continue Toprol XL, ASA, statin COPD --continue duonebs Anxiety --continue Zoloft, lorazepam PRN F/E/N Fluids: PO intake adequate Electrolytes: replete as indicated Nutrition: renal diet DVT prophylaxis: on Eliquis, oob, ambulation Physical therapy evaluation Daily PT Dispo: if HR continues to be well-controlled, consider discharge tomorrow. Full Code. Visit type - Emergency Visit Emergency Visit: Yes ED Registration Date: 08/28/16 Care time: The patient presented to the Emergency Department on the above date and was hospitalized for further evaluation of their emergent condition. - New Patient This patient is new to me today: No - Critical Care Critical Care patient: No
[2016-08-31] MEDS: METOPROLOL SUCCINATE 100 MG TAB.SR.24H (FP) PO SCH (16:09)
[2016-08-31] MEDS: PANTOPRAZOLE 40 MG TABLET (FP) PO SCH (16:10)
[2016-08-31] MEDS: SERTRALINE HCL 50 MG TABLET (FP) PO SCH (16:10)
[2016-08-31] MEDS: ASPIRIN 81 MG CHEWABLE TABLETS PO SCH (16:10)
[2016-08-31] MEDS: APIXABAN 2.5 MG TABLET PO SCH (16:13)
[2016-08-31] MEDS: DOCUSATE SODIUM 100 MG CAPSULE (FP) PO SCH (22:26)
[2016-08-31] MEDS: ROSUVASTATIN CA 5 MG TABLET (FP) PO SCH (22:33)
[2016-09-01] MEDS: METOPROLOL SUCCINATE 100 MG TAB.SR.24H (FP) PO SCH ×3 (00:14→22:30)
[2016-09-01] MEDS: APIXABAN 2.5 MG TABLET PO SCH ×3 (00:14→21:51)
[2016-09-01] MEDS: ALBUTEROL SO4 2.5/IPRATROPIUM 0.5 INH SOL 3 ML VIAL.NEB. NEB PRN ×5 (06:22→23:53)
[2016-09-01 07:10] LABS: BASOPHIL 0.5 % (0-2.0); EOSINOPHIL 0.7 % (0-4.5); MCH 31.8 pg (25.7-33.7); MCHC 32.1 g/dl (32.0-36.0); MEAN CELL VOLUME 99.3 fl (80-96); MEAN PLT VOLUME 8.7 fl (7.5-11.1); NEUTROPHILS 77.1 % (42.8-82.8); PLATELET COUNT 219 K/MM3 (134-434); RDW 20.2 % (11.6-15.6); WHITE BLOOD COUNT 9.4 K/mm3 (4.0-10.0)
[2016-09-01 07:30] LABS: CALCIUM 8.5 mg/dL (8.5-10.1); COCKROFT - GAULT 8.823; CREATININE 4.4 mg/dL (0.55-1.02); MAGNESIUM 2.1 mg/dL (1.8-2.4); PHOSPHOROUS 4.2 mg/dL (2.5-4.9)
[2016-09-01 07:31] LABS: BILIRUBIN,TOTAL 0.9 mg/dL (0.2-1.0); TOT PROT 6.3 g/dl (6.4-8.2)
--- NOTE | 2016-09-01 09:03 | PN ---
Progress Note (short form) - Note Progress Note: Subjective: The patient was seen and examined at the bedside, she reports feeling slightly short of breath this AM. O2 99% on 3L NC HR remains elevated 110s-120s Current Medications Generic Name Dose Route Start Last Admin Trade Name Freq PRN Reason Stop Dose Admin Albuterol/Ipratropium 1 amp 08/28/16 08:25 09/01/16 06:22 Duoneb - NEB 1 amp Q4H PRN Administration SHORTNESS OF BREATH Apixaban 2.5 mg 08/28/16 10:00 09/01/16 09:23 Eliquis - PO 2.5 mg BID OBED Administration Aspirin 81 mg 08/28/16 10:00 08/31/16 16:10 Asa - PO 81 mg DAILY OBED Administration Docusate Sodium 300 mg 08/30/16 22:00 08/31/16 22:26 Colace - PO Not Given HS OBED Lorazepam 1 mg 08/28/16 05:55 08/31/16 10:04 Ativan - PO 1 mg TID PRN Administration ANXIETY Metoprolol Succinate 100 mg 08/30/16 22:00 09/01/16 00:14 Toprol Xl - PO 100 mg BID OBED Administration Pantoprazole Sodium 40 mg 08/28/16 10:00 09/01/16 09:23 Protonix - PO 40 mg DAILY OBED Administration Polyethylene Glycol 17 gm 08/30/16 22:00 09/01/16 09:22 Miralax (For Daily Use) - PO Not Given BID OBED Rosuvastatin Calcium 5 mg 08/28/16 22:00 08/31/16 22:33 Crestor - PO 5 mg HS OBED Administration Sertraline HCl 50 mg 08/28/16 10:00 09/01/16 09:23 Zoloft - PO 50 mg DAILY OBED Administration Sevelamer Carbonate 800 mg 08/28/16 08:00 09/01/16 09:23 Renvela - PO 800 mg TIDCM OEBD Administration Objective: Vital Signs Period Temp Pulse Resp BP Sys/Lynch Pulse Ox Last 24 Hr 97.6 F-98.9 F 63-125 18-22 92-137/42-93 90-100 Physical Exam: General: NAD, A&Ox3 Lungs: CTA bilaterally Heart: Irregular rate and rhythm Abd: Soft, non-tender, non-distended. Normoactive bowel sounds Ext: Warm, well-perfused. 2+ DP/PT bilaterally Neuro: CN 2-12 intact CBCD WBC 9.4 K/mm3 (4.0-10.0) 09/01/16 06:00 RBC 3.32 M/mm3 (3.60-5.2) L 09/01/16 06:00 Hgb 10.6 GM/dL (10.7-15.3) L D 09/01/16 06:00 Hct 33.0 % (32.4-45.2) 09/01/16 06:00 MCV 99.3 fl (80-96) H 09/01/16 06:00 MCHC 32.1 g/dl (32.0-36.0) 09/01/16 06:00 RDW 20.2 % (11.6-15.6) H 09/01/16 06:00 Plt Count 219 K/MM3 (134-434) 09/01/16 06:00 MPV 8.7 fl (7.5-11.1) 09/01/16 06:00 CMP Sodium 141 mmol/L (136-145) 09/01/16 06:00 Potassium 4.7 mmol/L (3.5-5.1) 09/01/16 06:00 Chloride 97 mmol/L (98-107) L 09/01/16 06:00 Carbon Dioxide 29 mmol/L (21-32) D 09/01/16 06:00 Anion Gap 15 (8-16) 09/01/16 06:00 BUN 35 mg/dL (7-18) H D 09/01/16 06:00 Creatinine 4.4 mg/dL (0.55-1.02) H D 09/01/16 06:00 Creat Clearance w eGFR 9.60 (>60) 09/01/16 06:00 Random Glucose 97 mg/dL (74-106) 09/01/16 06:00 Calcium 8.5 mg/dL (8.5-10.1) 09/01/16 06:00 Total Bilirubin 0.9 mg/dL (0.2-1.0) D 09/01/16 06:00 AST 38 U/L (15-37) H 09/01/16 06:00 ALT 45 U/L (12-78) 09/01/16 06:00 Alkaline Phosphatase 132 U/L (45-117) H 09/01/16 06:00 Total Protein 6.3 g/dl (6.4-8.2) L 09/01/16 06:00 Albumin 3.0 g/dl (3.4-5.0) L 09/01/16 06:00 CARDIAC ENZYMES Creatine Kinase 34 IU/L (26-192) 08/28/16 17:59 Troponin I 0.39 ng/ml (0.00-0.05) H 08/28/16 17:59 Assessment: This is an 80 year old female with PMHx of HTN, hyperlipidemia, CAD s/p [place] with cardiac stents x3, biventricular heart failure s/p AICD, a.fib on Eliquis, COPD, ESRD on HD (M,W,F), anxiety, who presented to the ED with A.fib with RVR Plan: 1) Cardiology: A.fib with RVR - HR remains elevated - Diltiazem and dig discontinued in the office by Dr. Mensah last week. Started on Toprol XL - Continue Toprol XL 100mg bid, monitor BP closely, hypotensive this AM, however patient reports it is her baseline - Continue Eliquis 2.5 mg po bid - Appreciate Cardiology consult Hyperlipidemia - Continue Crestor CAD s/p cardiac stent - Continue ASA Biventricular heart failure s/p AICD - 08/28 Echo: LV severely reduced, severe global hypokinesis; RV moderately reduced; LA severely dilated; moderate to severe MR; mild TR; severe pHTN; moderate to severe AI; echodensity on AV probably artifact, no clinical suspicion for endocarditis - Ideally would need to be on ADRIANA/ARB, defer starting to cardiology 2) : ESRD on HD - Tolerated HD yesterday - Continue Renvela - Appreciate nephrology consult 3) Psych: Anxiety - Continue Zoloft 4) F/E/N: - Renal diet - Monitor electrolytes 5) Prophylaxis: - On Eliquis - OOB ambulating - PT evaluation 6) Dispo: - Requires continued inpatient care CODE STATUS: FULL CODE Visit type - Emergency Visit Emergency Visit: Yes ED Registration Date: 08/28/16 Care time: The patient presented to the Emergency Department on the above date and was hospitalized for further evaluation of their emergent condition. - New Patient This patient is new to me today: Yes Date on this admission: 09/01/16 - Critical Care Critical Care patient: No
[2016-09-01] MEDS: POLYETHYLENE GLYCOL 3350 119 GM BTL PO SCH ×2 (09:22→21:09)
[2016-09-01] MEDS: PANTOPRAZOLE 40 MG TABLET (FP) PO SCH (09:23)
[2016-09-01] MEDS: SEVELAMER CARBONATE 800 MG TAB (FP) PO SCH ×3 (09:23→18:29)
[2016-09-01] MEDS: SERTRALINE HCL 50 MG TABLET (FP) PO SCH (09:23)
--- NOTE | 2016-09-01 09:47 | CONSULT ---
Admitting History and Physical - Primary Care Physician PCP: Helena Webster - Admission History of Present Illness: 80 year-old woman with a significant PMH of HTN, HLD, CAD s/p [place] s/p stents x 3 , biventricular heart failure s/p AICD, afib on Eliquis, COPD, ESRD on HD (M,W,F ), and anxiety Admitted for afib with RVR. Recent admission at the beginning of August: "Patient is an 79 y/o female with a past medical history of CHF(mild segmental LV dysfunction), CKD, CAD s/p PCI, HTN, and HL who presents with acute SOB and wheezing. Patient reports that she was in her usual state of health until yesterday. The patient reports that while she was cleaning and dusting around the house, she suddenly developed acute SOB and wheezing." Speech /cognition/swallowing intact at that time. History Source: Patient, Medical Record Limitations to Obtaining History: No Limitations - Past Medical History Cardiovascular: Yes: AFIB, CAD, CHF, HTN, [place], Hyperlipdemia Pulmonary: Yes: COPD Renal/: Yes: Renal Failure (on HD), Hemodialysis ...: No Heme/Onc: Yes: Anemia Psych: Yes: Anxiety, Depression Endocrine: Yes: Hypothyroidism - Past Surgical History Past Surgical History: Yes: AV Fistula/Graft, Stent - Smoking History Smoking history: Former smoker Have you smoked in the past 12 months: No Aproximately how many cigarettes per day: 0 If you are a former smoker, when did you quit?: 2YRS - Alcohol/Substance Use Hx Alcohol Use: No History of Substance Use: reports: None - Social History ADL: Independent History of Recent Travel: No History - Admission Reason For Visit: COPD ANXIETY ESRD ON DIALYSIS - Diagnostics X-ray: Report Reviewed - General Mental Status: Alert and Oriented, Awake and Alert, Able to Follow Commands Attention: Intact Ability to Follow Directions: Excellent Head/Neck Control: WFL - Hearing Hearing: Functional Speech Evaluation - Communication Primary Language: SLOV[place] Communication: Yes: Within Normal Limits Oral Expression Ability: Yes: No Impairment - Speech Characteristics Articulation: Yes: Precise - Swallow Evaluation/Bedside Assessment Current Nutritional Intake: Regular, Thin Liquids Oral Secretions: Yes: WFL Dentition: Yes: Adequate, Missing Teeth (Upper anterior region) Facial Symmetry at Rest: Symmetrical Facial Symmetry on Retraction: Symmetrical Facial Movement: Controlled Against Resistance Opening: Normal Against Resistance Closing: Normal Pucker Lips: Normal Lingual Movement: Normal, Symmetric Lingual Speed of Movement: Normal Lingual Movement Strgth Against Opposition: Normal Lingual Movement Characteristics: Normal Velopharyngeal Movement: Normal Laryngeal Elevation: WFL Laryngeal Movement: Able to Palpate Chewing: Impaired (impaired abilty to bite off a piece of whole food due to missing dentition in upper anterior region) Oral Prep Time: WFL A-P Transit: WFL Pocketing: None Timing of Swallow: WFL Coughing/Throat Clear: No Change in Voice: No Recommendations - Speech Evaluation, Impression/Plan Impression: Impaired abilty to bite off a piece of whole food due to missing dentition in upper anterior region. Good mastication/swallowing. Pt is tolerating regular diet. - Dysphagia Impressions/Plan Dysphagia Impressions: Minimal Impairment *Silent aspiration: cannot be R/O at bedside Recommendations: Other (Pt will cut up food and place laterally in oral cavity.) - Recommendations Diet Consistency: Regular Medication Administration: Whole with water Liquids: Thin Liquids
[2016-09-01] MEDS: ASPIRIN 81 MG CHEWABLE TABLETS PO SCH (10:01)
--- NOTE | 2016-09-01 13:03 | PN ---
Progress Note, Physician History of Present Illness: Pt seen and examined at bedside. She still complains of shortness of breath and palpitations. - Current Medication List Current Medications: Active Medications Albuterol/Ipratropium (Duoneb -) 1 amp NEB Q4H PRN PRN Reason: SHORTNESS OF BREATH Last Admin: 09/01/16 10:48 Dose: 1 amp Apixaban (Eliquis -) 2.5 mg PO BID [facility] Last Admin: 09/01/16 09:23 Dose: 2.5 mg Aspirin (Asa -) 81 mg PO DAILY [facility] Last Admin: 09/01/16 10:01 Dose: 81 mg Docusate Sodium (Colace -) 300 mg PO [facility] Last Admin: 08/31/16 22:26 Dose: Not Given Lorazepam (Ativan -) 1 mg PO TID PRN PRN Reason: ANXIETY Last Admin: 08/31/16 10:04 Dose: 1 mg Metoprolol Succinate (Toprol Xl -) 100 mg PO BID [facility] Last Admin: 09/01/16 10:01 Dose: 100 mg Pantoprazole Sodium (Protonix -) 40 mg PO DAILY [facility] Last Admin: 09/01/16 09:23 Dose: 40 mg Polyethylene Glycol (Miralax (For Daily Use) -) 17 gm PO BID [facility] Last Admin: 09/01/16 09:22 Dose: Not Given Rosuvastatin Calcium (Crestor -) 5 mg PO HS [facility] Last Admin: 08/31/16 22:33 Dose: 5 mg Sertraline HCl (Zoloft -) 50 mg PO DAILY [facility] Last Admin: 09/01/16 09:23 Dose: 50 mg Sevelamer Carbonate (Renvela -) 800 mg PO TIDCM [facility] Last Admin: 09/01/16 12:31 Dose: 800 mg - Objective Vital Signs: Vital Signs Temperature 98.2 F 09/01/16 09:40 Pulse Rate 138 H 09/01/16 11:47 Respiratory Rate 20 09/01/16 09:40 Blood Pressure 92/48 09/01/16 09:40 O2 Sat by Pulse Oximetry (%) 99 09/01/16 11:47 Constitutional: Yes: Calm Eyes: Yes: Conjunctiva Clear HENT: Yes: Atraumatic Neck: Yes: Supple Cardiovascular: Yes: S1, S2 Respiratory: Yes: On Nasal O2, Wheezes Gastrointestinal: Yes: Soft Genitourinary: Yes: WNL Musculoskeletal: Yes: WNL Edema: No Neurological: Yes: Oriented Psychiatric: Yes: Oriented Labs: CBC, BMP 09/01/16 06:00 09/01/16 06:00 Problem List - Problems (1) Anxiety Code(s): F41.9 - ANXIETY DISORDER, UNSPECIFIED (2) Atrial fibrillation with tachycardic ventricular rate Code(s): I48.91 - UNSPECIFIED ATRIAL FIBRILLATION (3) ESRD needing dialysis Code(s): N18.6 - END STAGE RENAL DISEASE (4) COPD (chronic obstructive pulmonary disease) Code(s): J44.9 - CHRONIC OBSTRUCTIVE PULMONARY DISEASE, UNSPECIFIED (6) HTN (hypertension) Code(s): I10 - ESSENTIAL (PRIMARY) HYPERTENSION Qualifiers: Hypertension type: essential hypertension Qualified Code(s): I10 - Essential (primary) hypertension (7) Hyperlipidemia Code(s): E78.5 - HYPERLIPIDEMIA, UNSPECIFIED Assessment/Plan Current Medications Generic Name Dose Route Start Last Admin Trade Name Freq PRN Reason Stop Dose Admin Albuterol/Ipratropium 1 amp 08/28/16 08:25 09/01/16 10:48 Duoneb - NEB 1 amp Q4H PRN Administration SHORTNESS OF BREATH Apixaban 2.5 mg 08/28/16 10:00 09/01/16 09:23 Eliquis - PO 2.5 mg BID OBED Administration Aspirin 81 mg 08/28/16 10:00 09/01/16 10:01 Asa - PO 81 mg DAILY [facility] Administration Docusate Sodium 300 mg 08/30/16 22:00 08/31/16 22:26 Colace - PO Not Given HS OBED Lorazepam 1 mg 08/28/16 05:55 08/31/16 10:04 Ativan - PO 1 mg TID PRN Administration ANXIETY Metoprolol Succinate 100 mg 08/30/16 22:00 09/01/16 10:01 Toprol Xl - PO 100 mg BID [facility] Administration Pantoprazole Sodium 40 mg 08/28/16 10:00 09/01/16 09:23 Protonix - PO 40 mg DAILY OBED Administration Polyethylene Glycol 17 gm 08/30/16 22:00 09/01/16 09:22 Miralax (For Daily Use) - PO Not Given BID OBED Rosuvastatin Calcium 5 mg 08/28/16 22:00 08/31/16 22:33 Crestor - PO 5 mg HS OBED Administration Sertraline HCl 50 mg 08/28/16 10:00 09/01/16 09:23 Zoloft - PO 50 mg DAILY [facility] Administration Sevelamer Carbonate 800 mg 08/28/16 08:00 09/01/16 12:31 Renvela - PO 800 mg TIDCM OBED Administration Impression 1. ESRD 2. PNA 3. HTN 4. CHF 5. pleural effusion 6. hypothyroidism 7. hyperlipidemia 8. MVP 9. a-fib with rapid vent response Plan - will arrange for HD in am - cardio follow up - monitor on tele - cont current meds - monitor rate closely - HD: 3 hrs, heparin 2000 bolus, 1000 maintenance, 2 k bath, left av graft, aranesp 40 recieved last Wednesday, venofer 50 weekly
--- NOTE | 2016-09-01 16:03 | PN ---
Progress Note, Physician Chief Complaint: Pt denies chest pain or palpitations; feels fatigued. History of Present Illness: The patient is an 80 year old white female with significant past medical history of anemia, afib, severe systolic CHF, s/p defibrillator on Eliquis, COPD (on home O2 prn), CAD, s/p stents x3, hypertension, hyperlipidemia, hypothyroidism, and ESRD (on HD MWF) who presents to the ED for palpitations and SOB prior to arrival. Patient reports she was in her usual state of healthy when she developed palpitations and SOB. At time of evaluation, patient reports her SOB has progressively gotten better. Patient denies lightheadedness, diaphoresis, chest pain, jaw pain, shoulder pain, arm pain, nausea, or vomiting. She reports having a few episodes of loose stools today. Denies abdominal pain. She also states 5 days ago her defibrillator went off and she visited her print developer automatic 2 days later, where she had an ECG that was normal. The patient denies fever, chills, and cough. Allergies: NDKA Social History: Former smoker (quit 08/2014). No alcohol or drug use reported. Past Surgical History: s/p cardiac stents x 3, defibrillator (09/27/2015) PCP: Dr. Evelyn Swanson [facility] Installation Engineer: Dr. Adilson Chris Service Tester: Dr. Misael Lopez - Current Medication List Current Medications: Active Medications Albuterol/Ipratropium (Duoneb -) 1 amp NEB Q4H PRN PRN Reason: SHORTNESS OF BREATH Last Admin: 09/01/16 14:23 Dose: 1 amp Apixaban (Eliquis -) 2.5 mg PO BID [facility] Last Admin: 09/01/16 09:23 Dose: 2.5 mg Aspirin (Asa -) 81 mg PO DAILY [facility] Last Admin: 09/01/16 10:01 Dose: 81 mg Docusate Sodium (Colace -) 300 mg PO HS [facility] Last Admin: 08/31/16 22:26 Dose: Not Given Epoetin Jose (Procrit -) 3,000 unit IVPUSH ONCE ONE Stop: 09/02/16 13:06 Heparin Sodium (Porcine) (Heparin -) 2,000 unit IVPUSH ONCE ONE Stop: 09/02/16 13:06 Heparin Sodium (Porcine) (Heparin -) 1,000 unit IVPUSH Q1H [facility] Stop: 09/02/16 15:16 Lorazepam (Ativan -) 1 mg PO TID PRN PRN Reason: ANXIETY Last Admin: 08/31/16 10:04 Dose: 1 mg Metoprolol Succinate (Toprol Xl -) 100 mg PO BID [facility] Last Admin: 09/01/16 10:01 Dose: 100 mg Pantoprazole Sodium (Protonix -) 40 mg PO DAILY [facility] Last Admin: 09/01/16 09:23 Dose: 40 mg Polyethylene Glycol (Miralax (For Daily Use) -) 17 gm PO BID [facility] Last Admin: 09/01/16 09:22 Dose: Not Given Rosuvastatin Calcium (Crestor -) 5 mg PO HS [facility] Last Admin: 08/31/16 22:33 Dose: 5 mg Sertraline HCl (Zoloft -) 50 mg PO DAILY [facility] Last Admin: 09/01/16 09:23 Dose: 50 mg Sevelamer Carbonate (Renvela -) 800 mg PO TIDCM [facility] Last Admin: 09/01/16 12:31 Dose: 800 mg - Objective Vital Signs: Vital Signs Temperature 98.3 F 09/01/16 15:40 Pulse Rate 119 H 09/01/16 15:40 Respiratory Rate 20 09/01/16 15:40 Blood Pressure 100/55 09/01/16 15:40 O2 Sat by Pulse Oximetry (%) 99 09/01/16 11:47 Constitutional: Yes: Anxious Eyes: Yes: WNL HENT: Yes: WNL Neck: Yes: WNL Cardiovascular: Yes: Tachycardia, Pulse Irregular Respiratory: Yes: Diminished Gastrointestinal: Yes: Soft ...Rectal Exam: Yes: Deferred Genitourinary: No: Anuria Musculoskeletal: Yes: Muscle Weakness Extremities: Yes: Cool Edema: No Peripheral Pulses WNL: No Peripheral Pulses: Left Doralis Pedis: 1+, Right Dorsalis Pedis: 1+ Integumentary: Yes: Bruising Neurological: Yes: Alert, Oriented, Weakness Psychiatric: Yes: Alert, Oriented, Other Labs: CBC, BMP 09/01/16 06:00 09/01/16 06:00 Problem List - Problems (1) Anxiety Assessment/Plan: Continue anxiolytics. Code(s): F41.9 - ANXIETY DISORDER, UNSPECIFIED (2) Atrial fibrillation with tachycardic ventricular rate Assessment/Plan: Pt had diltiazem and digoxin discontinued this week. Metoprolol ER increased to 100 mg bid; f/u HR and BP Maintain electrolytes WNL. TSH WNL. Maintain hydration. Anxiolytics. Continue all systolic CHF medications (ideally including ACEI and spironolactone , if BUN/Cr and electrolytes allow, and if cleared by nephrology: pt is on hemodialysis 3x/week). Code(s): I48.91 - UNSPECIFIED ATRIAL FIBRILLATION (3) ESRD needing dialysis Assessment/Plan: Schedule per customs import specialist. Code(s): N18.6 - END STAGE RENAL DISEASE (4) COPD (chronic obstructive pulmonary disease) Assessment/Plan: f/u with manager film. Code(s): J44.9 - CHRONIC OBSTRUCTIVE PULMONARY DISEASE, UNSPECIFIED (5) Acute on chronic systolic and diastolic heart failure, NYHA class 3 Code(s): I50.43 - ACUTE ON CHRONIC COMBINED SYSTOLIC AND DIASTOLIC HRT FAIL (6) Defibrillator discharge Code(s): Z45.02 - ENCNTR FOR ADJUST AND MGMT OF AUTOMATIC IMPLNTBL CARD DEFIB (7) HTN (hypertension) Code(s): I10 - ESSENTIAL (PRIMARY) HYPERTENSION Qualifiers: Hypertension type: essential hypertension Qualified Code(s): I10 - Essential (primary) hypertension (8) Hyperlipidemia Code(s): E78.5 - HYPERLIPIDEMIA, UNSPECIFIED (9) Palpitations Code(s): R00.2 - PALPITATIONS (10) Panic anxiety syndrome Code(s): F41.0 - PANIC DISORDER WITHOUT AGORAPHOBIA (11) Shortness of breath Code(s): R06.02 - SHORTNESS OF BREATH (12) CAD (coronary artery disease) Code(s): I25.10 - ATHSCL HEART DISEASE OF [place] CORONARY ARTERY W/O ANG PCTRS Qualifiers: (13) Status post coronary artery stent placement Code(s): Z95.5 - PRESENCE OF CORONARY ANGIOPLASTY IMPLANT AND GRAFT (14) Thyroid disorder Code(s): E07.9 - DISORDER OF THYROID, UNSPECIFIED
[2016-09-01] MEDS: DOCUSATE SODIUM 100 MG CAPSULE (FP) PO SCH (21:12)
[2016-09-01] MEDS: LORazepam 1 MG TABLET PO PRN (21:51)
[2016-09-01] MEDS: ROSUVASTATIN CA 5 MG TABLET (FP) PO SCH (21:51)
[2016-09-02] MEDS: ALBUTEROL SO4 2.5/IPRATROPIUM 0.5 INH SOL 3 ML VIAL.NEB. NEB PRN ×4 (05:12→22:49)
[2016-09-02] MEDS: LORazepam 1 MG TABLET PO PRN ×2 (06:32→21:44)
[2016-09-02] MEDS ORDERED: HEPARIN NA (PORCINE) 5,000 UNITS/ML 1ML VIAL IVPUSH ONE (07:00)
[2016-09-02] MEDS ORDERED: EPOETIN ALFA 3,000 UNIT/1 ML ML IVPUSH ONE (08:00)
[2016-09-02] MEDS: HEPARIN NA (PORCINE) 5,000 UNITS/ML 1ML VIAL IVPUSH SCH ×3 (08:00→09:30)
[2016-09-02] MEDS: SEVELAMER CARBONATE 800 MG TAB (FP) PO SCH ×3 (08:50→17:38)
[2016-09-02 08:54] LABS: MCH 31.6 pg (25.7-33.7); MEAN PLT VOLUME 9.1 fl (7.5-11.1); PLATELET COUNT 198 K/MM3 (134-434); RDW 20.5 % (11.6-15.6); WHITE BLOOD COUNT 9.4 K/mm3 (4.0-10.0)
[2016-09-02 09:17] LABS: COCKROFT - GAULT 6.749; CREATININE 5.8 mg/dL (0.55-1.02)
[2016-09-02 09:18] LABS: BILIRUBIN,TOTAL 0.8 mg/dL (0.2-1.0); CALCIUM 8.1 mg/dL (8.5-10.1)
--- NOTE | 2016-09-02 10:32 | PN ---
Progress Note, Physician History of Present Illness: The patient is an 80 year old white female with significant past medical history of anemia, afib, severe systolic CHF, s/p defibrillator on Eliquis, COPD (on home O2 prn), CAD, s/p stents x3, hypertension, hyperlipidemia, hypothyroidism, and ESRD (on HD MWF) who presents to the ED for palpitations and SOB prior to arrival. Patient reports she was in her usual state of healthy when she developed palpitations and SOB. At time of evaluation, patient reports her SOB has progressively gotten better. Patient denies lightheadedness, diaphoresis, chest pain, jaw pain, shoulder pain, arm pain, nausea, or vomiting. She reports having a few episodes of loose stools today. Denies abdominal pain. She also states 5 days ago her defibrillator went off and she visited her second grade teacher 2 days later, where she had an ECG that was normal. The patient denies fever, chills, and cough. Allergies: NDKA Social History: Former smoker (quit 08/2014). No alcohol or drug use reported. Past Surgical History: s/p cardiac stents x 3, defibrillator (09/27/2015) PCP: Dr. Evelyn Swanson [employer] St[employer] Vendor: Dr. Adilson Chris - Current Medication List Current Medications: Active Medications Albuterol/Ipratropium (Duoneb -) 1 amp NEB Q4H PRN PRN Reason: SHORTNESS OF BREATH Last Admin: 09/02/16 05:12 Dose: 1 amp Apixaban (Eliquis -) 2.5 mg PO BID [facility] Last Admin: 09/01/16 21:51 Dose: 2.5 mg Aspirin (Asa -) 81 mg PO DAILY [facility] Last Admin: 09/01/16 10:01 Dose: 81 mg Docusate Sodium (Colace -) 300 mg PO HS [facility] Last Admin: 09/01/16 21:12 Dose: Not Given Lorazepam (Ativan -) 1 mg PO TID PRN PRN Reason: ANXIETY Last Admin: 09/02/16 06:32 Dose: 1 mg Metoprolol Succinate (Toprol Xl -) 100 mg PO BID [facility] Last Admin: 09/01/16 22:30 Dose: 100 mg Pantoprazole Sodium (Protonix -) 40 mg PO DAILY [facility] Last Admin: 09/01/16 09:23 Dose: 40 mg Polyethylene Glycol (Miralax (For Daily Use) -) 17 gm PO BID [facility] Last Admin: 09/01/16 21:09 Dose: Not Given Rosuvastatin Calcium (Crestor -) 5 mg PO HS [facility] Last Admin: 09/01/16 21:51 Dose: 5 mg Sertraline HCl (Zoloft -) 50 mg PO DAILY [facility] Last Admin: 09/01/16 09:23 Dose: 50 mg Sevelamer Carbonate (Renvela -) 800 mg PO TIDCM [facility] Last Admin: 09/01/16 18:29 Dose: 800 mg - Objective Vital Signs: Vital Signs Temperature 97.6 F 09/02/16 06:13 Pulse Rate 82 09/02/16 09:33 Respiratory Rate 18 09/02/16 09:33 Blood Pressure 106/50 09/02/16 09:33 O2 Sat by Pulse Oximetry (%) 96 09/01/16 20:39 Eyes: Yes: WNL, Conjunctiva Clear, EOM Intact HENT: Yes: WNL, Atraumatic, Normocephalic Neck: Yes: WNL, Supple, Trachea Midline Cardiovascular: Yes: WNL, Regular Rate and Rhythm Respiratory: Yes: WNL, Regular, CTA Bilaterally Gastrointestinal: Yes: WNL, Normal Bowel Sounds Genitourinary: Yes: WNL Musculoskeletal: Yes: WNL Extremities: Yes: WNL Edema: No Integumentary: Yes: WNL Neurological: Yes: WNL, Alert, Oriented ...Motor Strength: WNL Psychiatric: Yes: WNL Labs: CBC, BMP 09/02/16 08:49 09/02/16 08:42 Assessment/Plan - Problems (1) Anxiety Assessment/Plan: Continue anxiolytics. Code(s): F41.9 - ANXIETY DISORDER, UNSPECIFIED (2) Atrial fibrillation with tachycardic ventricular rate Assessment/Plan: in NSR now Pt had diltiazem and digoxin discontinued this week. Patient is poor candidate to be on Cardizem due to low ef also use of amiodarone is questionable due ro copd. tolerating Metoprolol ER 100 mg to BID monitore bp. Maintain electrolytes WNL. TSH WNL. Maintain hydration. Anxiolytics. Continue all systolic CHF medications (ideally including ACEI and spironolactone , if BUN/Cr and electrolytes allow, and if cleared by nephrology: pt is on hemodialysis 3x/week). Code(s): I48.91 - UNSPECIFIED ATRIAL FIBRILLATION (3) ESRD needing dialysis Assessment/Plan: As discussed with Dr. Zuluaga, can safely hold hemodialysis until tomorrow while HR is better-controlled. Code(s): N18.6 - END STAGE RENAL DISEASE (4) COPD (chronic obstructive pulmonary disease) Assessment/Plan: f/u with drug regulatory affairs specialist. Code(s): J44.9 - CHRONIC OBSTRUCTIVE PULMONARY DISEASE, UNSPECIFIED (5) Acute on chronic systolic and diastolic heart failure, NYHA class 3 Code(s): I50.43 - ACUTE ON CHRONIC COMBINED SYSTOLIC AND DIASTOLIC HRT FAIL (6) Defibrillator discharge Code(s): Z45.02 - ENCNTR FOR ADJUST AND MGMT OF AUTOMATIC IMPLNTBL CARD DEFIB (7) HTN (hypertension) Code(s): I10 - ESSENTIAL (PRIMARY) HYPERTENSION Qualifiers: Hypertension type: essential hypertension Qualified Code(s): I10 - Essential (primary) hypertension (8) Hyperlipidemia Code(s): E78.5 - HYPERLIPIDEMIA, UNSPECIFIED (9) Palpitations Code(s): R00.2 - PALPITATIONS (10) Panic anxiety syndrome Code(s): F41.0 - PANIC DISORDER WITHOUT AGORAPHOBIA (11) Shortness of breath Code(s): R06.02 - SHORTNESS OF BREATH (12) CAD (coronary artery disease) Code(s): I25.10 - ATHSCL HEART DISEASE OF [place] CORONARY ARTERY W/O ANG PCTRS Qualifiers: (13) Status post coronary artery stent placement Code(s): Z95.5 - PRESENCE OF CORONARY ANGIOPLASTY IMPLANT AND GRAFT (14) Thyroid disorder Code(s): E07.9 - DISORDER OF THYROID, UNSPECIFIED
--- NOTE | 2016-09-02 11:29 | PN ---
Progress Note, Physician History of Present Illness: Pt seen and examined at bedside. She tolerated HD. She is awake and alert. She feels her breathing is mildly improved. - Current Medication List Current Medications: Active Medications Albuterol/Ipratropium (Duoneb -) 1 amp NEB Q4H PRN PRN Reason: SHORTNESS OF BREATH Last Admin: 09/02/16 05:12 Dose: 1 amp Apixaban (Eliquis -) 2.5 mg PO BID [facility] Last Admin: 09/01/16 21:51 Dose: 2.5 mg Aspirin (Asa -) 81 mg PO DAILY [facility] Last Admin: 09/01/16 10:01 Dose: 81 mg Docusate Sodium (Colace -) 300 mg PO HS [facility] Last Admin: 09/01/16 21:12 Dose: Not Given Lorazepam (Ativan -) 1 mg PO TID PRN PRN Reason: ANXIETY Last Admin: 09/02/16 06:32 Dose: 1 mg Metoprolol Succinate (Toprol Xl -) 100 mg PO BID [facility] Last Admin: 09/01/16 22:30 Dose: 100 mg Pantoprazole Sodium (Protonix -) 40 mg PO DAILY [facility] Last Admin: 09/01/16 09:23 Dose: 40 mg Polyethylene Glycol (Miralax (For Daily Use) -) 17 gm PO BID [facility] Last Admin: 09/01/16 21:09 Dose: Not Given Rosuvastatin Calcium (Crestor -) 5 mg PO HS [facility] Last Admin: 09/01/16 21:51 Dose: 5 mg Sertraline HCl (Zoloft -) 50 mg PO DAILY [facility] Last Admin: 09/01/16 09:23 Dose: 50 mg Sevelamer Carbonate (Renvela -) 800 mg PO TIDCM [facility] Last Admin: 09/01/16 18:29 Dose: 800 mg - Objective Vital Signs: Vital Signs Temperature 97.6 F 09/02/16 06:13 Pulse Rate 93 H 09/02/16 10:40 Respiratory Rate 16 09/02/16 10:40 Blood Pressure 112/62 09/02/16 10:40 O2 Sat by Pulse Oximetry (%) 96 09/01/16 20:39 Constitutional: Yes: Calm Eyes: Yes: Conjunctiva Clear HENT: Yes: Atraumatic Neck: Yes: Supple Cardiovascular: Yes: S1, S2 Respiratory: Yes: Diminished, On Nasal O2 Gastrointestinal: Yes: Soft Genitourinary: Yes: WNL Musculoskeletal: Yes: WNL Edema: No Neurological: Yes: Oriented Psychiatric: Yes: Oriented Labs: CBC, BMP 09/02/16 08:49 09/02/16 08:42 Problem List - Problems (1) Anxiety Code(s): F41.9 - ANXIETY DISORDER, UNSPECIFIED (2) Atrial fibrillation with tachycardic ventricular rate Code(s): I48.91 - UNSPECIFIED ATRIAL FIBRILLATION (3) ESRD needing dialysis Code(s): N18.6 - END STAGE RENAL DISEASE (4) COPD (chronic obstructive pulmonary disease) Code(s): J44.9 - CHRONIC OBSTRUCTIVE PULMONARY DISEASE, UNSPECIFIED (6) HTN (hypertension) Code(s): I10 - ESSENTIAL (PRIMARY) HYPERTENSION Qualifiers: Hypertension type: essential hypertension Qualified Code(s): I10 - Essential (primary) hypertension (7) Hyperlipidemia Code(s): E78.5 - HYPERLIPIDEMIA, UNSPECIFIED Assessment/Plan Current Medications Generic Name Dose Route Start Last Admin Trade Name Freq PRN Reason Stop Dose Admin Albuterol/Ipratropium 1 amp 08/28/16 08:25 09/02/16 05:12 Duoneb - NEB 1 amp Q4H PRN Administration SHORTNESS OF BREATH Apixaban 2.5 mg 08/28/16 10:00 09/01/16 21:51 Eliquis - PO 2.5 mg BID OBED Administration Aspirin 81 mg 08/28/16 10:00 09/01/16 10:01 Asa - PO 81 mg DAILY [facility] Administration Docusate Sodium 300 mg 08/30/16 22:00 09/01/16 21:12 Colace - PO Not Given HS OBED Lorazepam 1 mg 08/28/16 05:55 09/02/16 06:32 Ativan - PO 1 mg TID PRN Administration ANXIETY Metoprolol Succinate 100 mg 08/30/16 22:00 09/01/16 22:30 Toprol Xl - PO 100 mg BID OBED Administration Pantoprazole Sodium 40 mg 08/28/16 10:00 09/01/16 09:23 Protonix - PO 40 mg DAILY [facility] Administration Polyethylene Glycol 17 gm 08/30/16 22:00 09/01/16 21:09 Miralax (For Daily Use) - PO Not Given BID OBED Rosuvastatin Calcium 5 mg 08/28/16 22:00 09/01/16 21:51 Crestor - PO 5 mg HS OBED Administration Sertraline HCl 50 mg 08/28/16 10:00 09/01/16 09:23 Zoloft - PO 50 mg DAILY [facility] Administration Sevelamer Carbonate 800 mg 08/28/16 08:00 09/01/16 18:29 Renvela - PO 800 mg TIDCM OBED Administration Impression 1. ESRD 2. anxiety 3. HTN 4. CHF 5. pleural effusion 6. hypothyroidism 7. hyperlipidemia 8. MVP 9. a-fib with rapid vent response Plan - pt tolerated HD today - cardiology input appreciated - monitor pulse ox - cont current meds - rate control - will follow - next HD is Wednesday - HD: 3 hrs, heparin 2000 bolus, 1000 maintenance, 2 k bath, left av graft, aranesp 40 recieved last Wednesday, venofer 50 weekly
[2016-09-02] MEDS ORDERED: PT OWN MED DRAWER 7, Y5N ONE (12:39)
[2016-09-02] MEDS: APIXABAN 2.5 MG TABLET PO SCH ×2 (12:56→21:44)
[2016-09-02] MEDS: ASPIRIN 81 MG CHEWABLE TABLETS PO SCH (12:56)
[2016-09-02] MEDS: PANTOPRAZOLE 40 MG TABLET (FP) PO SCH (12:57)
[2016-09-02] MEDS: POLYETHYLENE GLYCOL 3350 119 GM BTL PO SCH ×2 (12:57→21:45)
[2016-09-02] MEDS: METOPROLOL SUCCINATE 100 MG TAB.SR.24H (FP) PO SCH ×2 (12:57→21:44)
[2016-09-02] MEDS: SERTRALINE HCL 50 MG TABLET (FP) PO SCH (12:57)
--- NOTE | 2016-09-02 13:00 | PN ---
Progress Note (short form) - Note Progress Note: Subjective: The patient was seen and examined at the bedside, she reports symptoms have improved Now in NSR Current Medications Generic Name Dose Route Start Last Admin Trade Name Henry PRN Reason Stop Dose Admin Albuterol/Ipratropium 1 amp 08/28/16 08:25 09/02/16 05:12 Duoneb - NEB 1 amp Q4H PRN Administration SHORTNESS OF BREATH Apixaban 2.5 mg 08/28/16 10:00 09/02/16 12:56 Eliquis - PO 2.5 mg BID OBED Administration Aspirin 81 mg 08/28/16 10:00 09/02/16 12:56 Asa - PO 81 mg DAILY OBED Administration Docusate Sodium 300 mg 08/30/16 22:00 09/01/16 21:12 Colace - PO Not Given HS OBED Lorazepam 1 mg 08/28/16 05:55 09/02/16 06:32 Ativan - PO 1 mg TID PRN Administration ANXIETY Metoprolol Succinate 100 mg 08/30/16 22:00 09/02/16 12:57 Toprol Xl - PO 100 mg BID OBED Administration Pantoprazole Sodium 40 mg 08/28/16 10:00 09/02/16 12:57 Protonix - PO 40 mg DAILY OBED Administration Polyethylene Glycol 17 gm 08/30/16 22:00 09/02/16 12:57 Miralax (For Daily Use) - PO Not Given BID OBED Rosuvastatin Calcium 5 mg 08/28/16 22:00 09/01/16 21:51 Crestor - PO 5 mg HS OBED Administration Sertraline HCl 50 mg 08/28/16 10:00 09/02/16 12:57 Zoloft - PO 50 mg DAILY OBED Administration Sevelamer Carbonate 800 mg 08/28/16 08:00 09/02/16 12:56 Renvela - PO 800 mg TIDCM OBED Administration Objective: Vital Signs Period Temp Pulse Resp BP Sys/Lynch Pulse Ox Last 24 Hr 97.6 F-98.3 F 51-123 16-20 94-132/31-62 96 Physical Exam: General: NAD, A&Ox3 Lungs: CTA bilaterally Heart: RRR Abd: Soft, non-tender, non-distended. Normoactive bowel sounds Ext: Warm, well-perfused. 2+ DP/PT bilaterally Neuro: CN 2-12 intact CBCD WBC 9.4 K/mm3 (4.0-10.0) 09/02/16 08:49 RBC 3.12 M/mm3 (3.60-5.2) L 09/02/16 08:49 Hgb 9.9 GM/dL (10.7-15.3) L 09/02/16 08:49 Hct 30.8 % (32.4-45.2) L 09/02/16 08:49 MCV 99.0 fl (80-96) H 09/02/16 08:49 MCHC 32.0 g/dl (32.0-36.0) 09/02/16 08:49 RDW 20.5 % (11.6-15.6) H 09/02/16 08:49 Plt Count 198 K/MM3 (134-434) 09/02/16 08:49 MPV 9.1 fl (7.5-11.1) 09/02/16 08:49 CMP Sodium 139 mmol/L (136-145) 09/02/16 08:42 Potassium 4.2 mmol/L (3.5-5.1) 09/02/16 08:42 Chloride 96 mmol/L (98-107) L 09/02/16 08:42 Carbon Dioxide 24 mmol/L (21-32) 09/02/16 08:42 Anion Gap 19 (8-16) H 09/02/16 08:42 BUN 52 mg/dL (7-18) H D 09/02/16 08:42 Creatinine 5.8 mg/dL (0.55-1.02) H D 09/02/16 08:42 Creat Clearance w eGFR 6.98 (>60) 09/02/16 08:42 Random Glucose 109 mg/dL (74-106) H 09/02/16 08:42 Calcium 8.1 mg/dL (8.5-10.1) L 09/02/16 08:42 Total Bilirubin 0.8 mg/dL (0.2-1.0) 09/02/16 08:42 AST 29 U/L (15-37) D 09/02/16 08:42 ALT 41 U/L (12-78) 09/02/16 08:42 Alkaline Phosphatase 136 U/L (45-117) H 09/02/16 08:42 Total Protein 6.0 g/dl (6.4-8.2) L 09/02/16 08:42 Albumin 3.0 g/dl (3.4-5.0) L 09/02/16 08:42 CARDIAC ENZYMES Creatine Kinase 34 IU/L (26-192) 08/28/16 17:59 Troponin I 0.39 ng/ml (0.00-0.05) H 08/28/16 17:59 Assessment: This is an 80 year old female with PMHx of HTN, hyperlipidemia, CAD s/p NV with cardiac stents x3, biventricular heart failure s/p AICD, a.fib on Eliquis, COPD, ESRD on HD (M,W,F), anxiety, who presented to the ED with A.fib with RVR Plan: 1) Cardiology: A.fib with RVR - Now in NSR - HR controlled - Diltiazem and dig discontinued in the office by Dr. Mensah last week. Started on Toprol XL - Continue Toprol XL 100mg bid - Continue Eliquis 2.5 mg po bid - Appreciate Cardiology consult Hyperlipidemia - Continue Crestor CAD s/p cardiac stent - Continue ASA Biventricular heart failure s/p AICD - 08/28 Echo: LV severely reduced, severe global hypokinesis; RV moderately reduced; LA severely dilated; moderate to severe MR; mild TR; severe pHTN; moderate to severe AI; echodensity on AV probably artifact, no clinical suspicion for endocarditis - Ideally would need to be on ADRIANA/ARB, defer starting to cardiology 2) : ESRD on HD - Tolerated HD today - Continue Renvela - Appreciate nephrology consult 3) Psych: Anxiety - Continue Zoloft 4) F/E/N: - Renal diet - Monitor electrolytes 5) Prophylaxis: - On Eliquis - OOB ambulating - PT: walked 18 ft yesterday. Awaiting reevaluation today. Patient is refusing to go to a SNF 6) Dispo: - Requires continued inpatient care CODE STATUS: FULL CODE Visit type - Emergency Visit Emergency Visit: Yes ED Registration Date: 08/28/16 Care time: The patient presented to the Emergency Department on the above date and was hospitalized for further evaluation of their emergent condition. - New Patient This patient is new to me today: No - Critical Care Critical Care patient: No
[2016-09-02] MEDS: ROSUVASTATIN CA 5 MG TABLET (FP) PO SCH (21:44)
[2016-09-02] MEDS: DOCUSATE SODIUM 100 MG CAPSULE (FP) PO SCH (21:45)
[2016-09-03 00:06] LABS: HEP B SURFACE AB Non Reactive (.)
[2016-09-03] MEDS: SEVELAMER CARBONATE 800 MG TAB (FP) PO SCH (09:29)
[2016-09-03] MEDS: METOPROLOL SUCCINATE 100 MG TAB.SR.24H (FP) PO SCH (09:35)
[2016-09-03] MEDS: SERTRALINE HCL 50 MG TABLET (FP) PO SCH (09:35)
[2016-09-03] MEDS: PANTOPRAZOLE 40 MG TABLET (FP) PO SCH (09:35)
[2016-09-03] MEDS: APIXABAN 2.5 MG TABLET PO SCH (09:35)
[2016-09-03] MEDS: ASPIRIN 81 MG CHEWABLE TABLETS PO SCH (09:35)
[2016-09-03] MEDS: LORazepam 1 MG TABLET PO PRN (09:35)
[2016-09-03] MEDS: POLYETHYLENE GLYCOL 3350 119 GM BTL PO SCH (09:36)
[2016-09-03 09:42] VITALS: BP 120/52; TEMP 97.8
--- NOTE | 2016-09-03 11:14 | PN ---
Progress Note, Physician Chief Complaint: Pt denies chest pain or palpitations; mildly anxious. History of Present Illness: The patient is an 80 year old white female with significant past medical history of anemia, afib, severe systolic CHF, s/p defibrillator on Eliquis, COPD (on home O2 prn), CAD, s/p stents x3, hypertension, hyperlipidemia, hypothyroidism, and ESRD (on HD MWF) who presents to the ED for palpitations and SOB prior to arrival. Patient reports she was in her usual state of healthy when she developed palpitations and SOB. At time of evaluation, patient reports her SOB has progressively gotten better. Patient denies lightheadedness, diaphoresis, chest pain, jaw pain, shoulder pain, arm pain, nausea, or vomiting. She reports having a few episodes of loose stools today. Denies abdominal pain. She also states 5 days ago her defibrillator went off and she visited her master merchandiser 2 days later, where she had an ECG that was normal. The patient denies fever, chills, and cough. Allergies: NDKA Social History: Former smoker (quit 08/2014). No alcohol or drug use reported. Past Surgical History: s/p cardiac stents x 3, defibrillator (09/27/2015) PCP: Dr. Evelyn Swanson Utility Assembler: Dr. Adilson Chris Gas Dispatcher: Dr. Misael Lopez - Current Medication List Current Medications: Active Medications Albuterol/Ipratropium (Duoneb -) 1 amp NEB Q4H PRN PRN Reason: SHORTNESS OF BREATH Last Admin: 09/02/16 22:49 Dose: 1 amp Apixaban (Eliquis -) 2.5 mg PO BID [facility] Last Admin: 09/03/16 09:35 Dose: 2.5 mg Aspirin (Asa -) 81 mg PO DAILY [facility] Last Admin: 09/03/16 09:35 Dose: 81 mg Docusate Sodium (Colace -) 300 mg PO HS [facility] Last Admin: 09/02/16 21:45 Dose: Not Given Lorazepam (Ativan -) 1 mg PO TID PRN PRN Reason: ANXIETY Last Admin: 09/03/16 09:35 Dose: 1 mg Metoprolol Succinate (Toprol Xl -) 100 mg PO BID [facility] Last Admin: 09/03/16 09:35 Dose: 100 mg Pantoprazole Sodium (Protonix -) 40 mg PO DAILY [facility] Last Admin: 09/03/16 09:35 Dose: 40 mg Polyethylene Glycol (Miralax (For Daily Use) -) 17 gm PO BID [facility] Last Admin: 09/03/16 09:36 Dose: Not Given Rosuvastatin Calcium (Crestor -) 5 mg PO HS [facility] Last Admin: 09/02/16 21:44 Dose: 5 mg Sertraline HCl (Zoloft -) 50 mg PO DAILY [facility] Last Admin: 09/03/16 09:35 Dose: 50 mg Sevelamer Carbonate (Renvela -) 800 mg PO TIDCM [facility] Last Admin: 09/03/16 09:29 Dose: 800 mg - Objective Vital Signs: Vital Signs Temperature 97.8 F 09/03/16 09:38 Pulse Rate 76 09/03/16 09:38 Respiratory Rate 20 09/03/16 09:38 Blood Pressure 120/52 09/03/16 09:38 O2 Sat by Pulse Oximetry (%) 97 09/02/16 21:00 Constitutional: Yes: Anxious Eyes: Yes: WNL HENT: Yes: WNL Labs: CBC, BMP 09/02/16 08:49 09/02/16 08:42 Problem List - Problems (1) Anxiety Assessment/Plan: Continue anxiolytics. Code(s): F41.9 - ANXIETY DISORDER, UNSPECIFIED (2) Atrial fibrillation with tachycardic ventricular rate Assessment/Plan: Pt had diltiazem and digoxin discontinued this week. Metoprolol ER increased to 100 mg bid; f/u HR and BP; HR better-controlled (now in NSR, with periods of sinus bradycardia), and pt no longer has palpitations. Maintain electrolytes WNL. TSH WNL. Maintain hydration. Anxiolytics. Continue all systolic CHF medications (ideally including ACEI and spironolactone , if BUN/Cr and electrolytes allow, and if cleared by nephrology: pt is on hemodialysis 3x/week). Code(s): I48.91 - UNSPECIFIED ATRIAL FIBRILLATION (3) ESRD needing dialysis Code(s): N18.6 - END STAGE RENAL DISEASE (4) COPD (chronic obstructive pulmonary disease) Code(s): J44.9 - CHRONIC OBSTRUCTIVE PULMONARY DISEASE, UNSPECIFIED (5) Acute on chronic systolic and diastolic heart failure, NYHA class 3 Code(s): I50.43 - ACUTE ON CHRONIC COMBINED SYSTOLIC AND DIASTOLIC HRT FAIL (6) Defibrillator discharge Code(s): Z45.02 - ENCNTR FOR ADJUST AND MGMT OF AUTOMATIC IMPLNTBL CARD DEFIB (7) HTN (hypertension) Code(s): I10 - ESSENTIAL (PRIMARY) HYPERTENSION Qualifiers: Hypertension type: essential hypertension Qualified Code(s): I10 - Essential (primary) hypertension (8) Hyperlipidemia Code(s): E78.5 - HYPERLIPIDEMIA, UNSPECIFIED (9) Palpitations Code(s): R00.2 - PALPITATIONS (10) Panic anxiety syndrome Code(s): F41.0 - PANIC DISORDER WITHOUT AGORAPHOBIA (11) Shortness of breath Code(s): R06.02 - SHORTNESS OF BREATH (12) CAD (coronary artery disease) Code(s): I25.10 - ATHSCL HEART DISEASE OF [place] CORONARY ARTERY W/O ANG PCTRS Qualifiers: (13) Status post coronary artery stent placement Code(s): Z95.5 - PRESENCE OF CORONARY ANGIOPLASTY IMPLANT AND GRAFT (14) Thyroid disorder Code(s): E07.9 - DISORDER OF THYROID, UNSPECIFIED
[2016-09-03 11:33] VITALS: PULSE 77
--- NOTE | 2016-09-03 12:19 | DS ---
Physical Examination Vital Signs: Vital Signs Temperature 97.8 F 09/03/16 09:38 Pulse Rate 77 09/03/16 09:55 Respiratory Rate 20 09/03/16 09:38 Blood Pressure 120/52 09/03/16 09:38 O2 Sat by Pulse Oximetry (%) 98 09/03/16 09:55 Labs: CBC, BMP 09/02/16 08:49 09/02/16 08:42 Discharge Summary Reason For Visit: COPD ANXIETY ESRD ON DIALYSIS Current Active Problems Anxiety (Acute) Atrial fibrillation with tachycardic ventricular rate (Acute) ESRD needing dialysis (Acute) COPD (chronic obstructive pulmonary disease) (Chronic) Condition: Improved - Instructions Diet, Activity, Other Instructions: Please return to the ED with new, persistent, or worsening symptoms. Please follow-up with providers as indicated. Referrals: Evelyn Swanson [Primary Care Provider] - 1 Week Misael Lopez MD [Staff Physician] - (Please follow-up with cardiology within 2-3 days for further managment of your cardiac medications) Kendrick Zuluaga MD [Staff Physician] - 1 Week (Your next dialysis is tomorrow) Disposition: VNS/HOME HEALTH CARE - Home Medications Comprehensive Discharge Medication List: Ambulatory Orders Aspirin [ASA -] 81 mg PO DAILY 09/19/15 Apixaban [Eliquis] 2.5 mg PO BID 11/26/15 Lorazepam 1 mg PO TID PRN 02/17/16 Pantoprazole Sodium [Protonix] 40 mg PO DAILY 02/17/16 Rosuvastatin Calcium [Crestor] 5 mg PO HS 02/17/16 Sevelamer HCl [Renagel] 850 mg PO TID 02/17/16 Sertraline HCl [Zoloft -] 50 mg PO DAILY 08/28/16 Docusate Sodium [Colace -] 300 mg PO HS #90 tab 09/03/16 Metoprolol Succinate [Toprol XL -] 100 mg PO BID #60 tab 09/03/16 Polyethylene Glycol 3350 [Miralax 119 gm Btl -] 17 gm PO BID bottle 09/03/16
--- NOTE | 2016-09-03 12:38 | PN ---
Progress Note, Physician History of Present Illness: Pt seen and examined at bedside. She is awake and alert. She says she feels better. - Current Medication List Current Medications: Active Medications Albuterol/Ipratropium (Duoneb -) 1 amp NEB Q4H PRN PRN Reason: SHORTNESS OF BREATH Last Admin: 09/02/16 22:49 Dose: 1 amp Apixaban (Eliquis -) 2.5 mg PO BID [facility] Last Admin: 09/03/16 09:35 Dose: 2.5 mg Aspirin (Asa -) 81 mg PO DAILY [facility] Last Admin: 09/03/16 09:35 Dose: 81 mg Docusate Sodium (Colace -) 300 mg PO [facility] Last Admin: 09/02/16 21:45 Dose: Not Given Lorazepam (Ativan -) 1 mg PO TID PRN PRN Reason: ANXIETY Last Admin: 09/03/16 09:35 Dose: 1 mg Metoprolol Succinate (Toprol Xl -) 100 mg PO BID [facility] Last Admin: 09/03/16 09:35 Dose: 100 mg Pantoprazole Sodium (Protonix -) 40 mg PO DAILY [facility] Last Admin: 09/03/16 09:35 Dose: 40 mg Polyethylene Glycol (Miralax (For Daily Use) -) 17 gm PO BID [facility] Last Admin: 09/03/16 09:36 Dose: Not Given Rosuvastatin Calcium (Crestor -) 5 mg PO HS [facility] Last Admin: 09/02/16 21:44 Dose: 5 mg Sertraline HCl (Zoloft -) 50 mg PO DAILY [facility] Last Admin: 09/03/16 09:35 Dose: 50 mg Sevelamer Carbonate (Renvela -) 800 mg PO TIDCM [facility] Last Admin: 09/03/16 09:29 Dose: 800 mg - Objective Vital Signs: Vital Signs Temperature 97.8 F 09/03/16 09:38 Pulse Rate 77 09/03/16 09:55 Respiratory Rate 20 09/03/16 09:38 Blood Pressure 120/52 09/03/16 09:38 O2 Sat by Pulse Oximetry (%) 98 09/03/16 09:55 Constitutional: Yes: Calm Eyes: Yes: Conjunctiva Clear HENT: Yes: Atraumatic Neck: Yes: Supple Cardiovascular: Yes: S1, S2 Respiratory: Yes: On Nasal O2 Gastrointestinal: Yes: Soft Genitourinary: Yes: WNL Musculoskeletal: Yes: WNL Edema: No Neurological: Yes: Oriented Psychiatric: Yes: Oriented Labs: CBC, BMP 09/02/16 08:49 09/02/16 08:42 Problem List - Problems (1) Anxiety Code(s): F41.9 - ANXIETY DISORDER, UNSPECIFIED (2) Atrial fibrillation with tachycardic ventricular rate Code(s): I48.91 - UNSPECIFIED ATRIAL FIBRILLATION (3) ESRD needing dialysis Code(s): N18.6 - END STAGE RENAL DISEASE (4) COPD (chronic obstructive pulmonary disease) Code(s): J44.9 - CHRONIC OBSTRUCTIVE PULMONARY DISEASE, UNSPECIFIED (6) HTN (hypertension) Code(s): I10 - ESSENTIAL (PRIMARY) HYPERTENSION Qualifiers: Hypertension type: essential hypertension Qualified Code(s): I10 - Essential (primary) hypertension (7) Hyperlipidemia Code(s): E78.5 - HYPERLIPIDEMIA, UNSPECIFIED Assessment/Plan Current Medications Generic Name Dose Route Start Last Admin Trade Name Freq PRN Reason Stop Dose Admin Albuterol/Ipratropium 1 amp 08/28/16 08:25 09/02/16 22:49 Duoneb - NEB 1 amp Q4H PRN Administration SHORTNESS OF BREATH Apixaban 2.5 mg 08/28/16 10:00 09/03/16 09:35 Eliquis - PO 2.5 mg BID OBED Administration Aspirin 81 mg 08/28/16 10:00 09/03/16 09:35 Asa - PO 81 mg DAILY OBED Administration Docusate Sodium 300 mg 08/30/16 22:00 09/02/16 21:45 Colace - PO Not Given HS OBED Lorazepam 1 mg 08/28/16 05:55 09/03/16 09:35 Ativan - PO 1 mg TID PRN Administration ANXIETY Metoprolol Succinate 100 mg 08/30/16 22:00 09/03/16 09:35 Toprol Xl - PO 100 mg BID OBED Administration Pantoprazole Sodium 40 mg 08/28/16 10:00 09/03/16 09:35 Protonix - PO 40 mg DAILY OBED Administration Polyethylene Glycol 17 gm 08/30/16 22:00 09/03/16 09:36 Miralax (For Daily Use) - PO Not Given BID OBED Rosuvastatin Calcium 5 mg 08/28/16 22:00 09/02/16 21:44 Crestor - PO 5 mg HS OBED Administration Sertraline HCl 50 mg 08/28/16 10:00 09/03/16 09:35 Zoloft - PO 50 mg DAILY OBED Administration Sevelamer Carbonate 800 mg 08/28/16 08:00 09/03/16 09:29 Renvela - PO 800 mg TIDCM OBED Administration Impression 1. ESRD 2. anxiety 3. HTN 4. CHF 5. pleural effusion 6. hypothyroidism 7. hyperlipidemia 8. MVP 9. a-fib with rapid vent response Plan - pt has HD set up as outpt tomorrow - no contraindication to discharge from the renal perspective - discussed with cardio, pt will follow with them in office - monitor pulse ox - cont current meds - rate control - will follow - HD: 3 hrs, heparin 2000 bolus, 1000 maintenance, 2 k bath, left av graft, aranesp 40 recieved last Wednesday, venofer 50 weekly
--- NOTE | 2016-09-03 15:38 | EKG ---
Test Reason : Blood Pressure : / mmHG Vent. Rate : 085 BPM Atrial Rate : 085 BPM P-R Int : 000 ms QRS Dur : 136 ms QT Int : 436 ms P-R-T Axes : 083 103 -26 degrees QTc Int : 518 ms SINUS RHYTHM WITH PREMATURE SUPRAVENTRICULAR COMPLEXES RIGHTWARD AXIS NON-SPECIFIC INTRA-VENTRICULAR CONDUCTION BLOCK CANNOT RULE OUT SEPTAL INFARCT (CITED ON OR BEFORE 15-MAY-2016) ABNORMAL ECG WHEN COMPARED WITH ECG OF 30-AUG-2016 10:07, SINUS RHYTHM HAS REPLACED ATRIAL FIBRILLATION T WAVE INVERSION NO LONGER EVIDENT IN LATERAL LEADS Confirmed by ALISHA LOZOYA MD ([id number]) on 09/03/2016 3:37:33 PM Referred By: MURIEL SANTOS Confirmed By:ALISHA LOZOYA MD
== END 2016-09-03 12:35 | disposition home health service (06) | DRG 308 ==
LOC: JER 01:25 → JERBED 04:30 → UNDOADMIN 06:01 → JERBED 06:01 → J4S 16:44
PROVIDERS: ADMIT Internal Medicine; ATTEND Registered Nurse
PROC: 5A1D60Z (ICD-10-PCS; principal; 2016-08-28)
DX: I48.91 Unspecified atrial fibrillation (principal); N18.6 End stage renal disease; I24.8 Other forms of acute ischemic heart disease; I13.2 Hypertensive heart and chronic kidney disease with heart failure and with stage 5 chronic kidney disease, or end stage renal disease; I50.20 Unspecified systolic (congestive) heart failure; D64.9 Anemia, unspecified; I25.10 Atherosclerotic heart disease of native coronary artery without angina pectoris; J44.9 Chronic obstructive pulmonary disease, unspecified; E78.5 Hyperlipidemia, unspecified; N32.81 Overactive bladder; I27.2 Other secondary pulmonary hypertension; I25.2 Old myocardial infarction; F41.8 Other specified anxiety disorders; E03.9 Hypothyroidism, unspecified; Z99.2 Dependence on renal dialysis; Z95.5 Presence of coronary angioplasty implant and graft; Z95.810 Presence of automatic (implantable) cardiac defibrillator; Z87.891 Personal history of nicotine dependence; Z99.81 Dependence on supplemental oxygen
CPT/HCPCS: 36415; 71010-TC; 80048; 80053; 82550; 83735; 84100; 84443; 84484; 85025; 85027; 86704; 86706; 86708; 86803; 87340; 93005; 93010; 93306-TC; 94640; 97116-GP; 97162; 99285-25; J0885; J1644

== ENCOUNTER 2016-09-03 23:14 | Emergency (ER) | payer OTHER, BC ==
[2016-09-03 23:27] VITALS: BMI 20.9
[2016-09-03] MEDS ORDERED: ALBUTEROL SO4 2.5/IPRATROPIUM 0.5 INH SOL 3 ML VIAL.NEB. NEB STA (23:43)
[2016-09-03] MEDS ORDERED: MAGNESIUM SULF 50% (8.12 MEQ/2 ML-1 GM VIAL) IVPB ONE (23:44)
[2016-09-03] MEDS ORDERED: ALBUTEROL SO4 2.5/IPRATROPIUM 0.5 INH SOL 3 ML VIAL.NEB. NEB ONE (23:45)
[2016-09-03] MEDS ORDERED: MAGNESIUM SULF 50% (8.12 MEQ/2 ML-1 GM VIAL) ONE (23:45)
--- NOTE | 2016-09-03 23:45 | PDOC ---
History of Present Illness - General History Source: Patient Exam Limitations: No Limitations - History of Present Illness Initial Comments: 09/03/16 23:50 The patient is an 82 year old female with a significant past medical history of anemia, atrial fibrillation s/p defibrillator (on Eliquis), COPD (on home O2 prn ), CAD s/p stents, CHF, hypertension, hypothyroidism, and ESRD (on HD MWF), who presents to the ER with shortness of breath for several hours. Patient states she was discharged from the hospital today after getting treated for COPD exacerbation and ESRD. She says she was last dialyzed at the hospital. She reports she had a sudden onset of shortness of breath while she was getting ready for bed this evening. Patient denies exerting herself. Denies chest pain Denies lightheadedness Denies swelling in lower extremities Denies fever, chills, cough Denies nausea, vomiting PCP: Evelyn Swanson Machining Manager: Dr. Adilson Chris Fish Farm Manager: Dr. Misael Lopez <Kiara Macario - Last Filed: 09/04/16 06:29> - General History Source: Patient <Flavio Glover - Last Filed: 09/04/16 06:51> - General Chief Complaint: Shortness of Breath Stated Complaint: RESPIRATORY, SOB Time Seen by Provider: 09/03/16 23:38 Past History <Kiara Macario - Last Filed: 09/04/16 06:29> - Past Medical History Anemia: Yes Asthma: No Cancer: No Cardiac Disorders: Yes (a fib) CVA: No COPD: Yes CHF: Yes DVT: No Dementia: No Diabetes: No Dialysis: Yes (m,w,f) GI Disorders: No Disorders: Yes (OVERACTIVE BLADDER) HTN: Yes Hypercholesterolemia: Yes Kidney Stones: No (ESRD dyalisis --Wednesday) Liver Disease: No Psychiatric Problems: Yes Seizures: No Thyroid Disease: Yes (HYPO.) - Surgical History Abdominal Surgery: No Appendectomy: No Cardiac Surgery: Yes (STENTS X 3;DEFIBRILLATOR 09/27/15) Cholecystectomy: No Lung Surgery: No (Influitive [id number]) Neurologic Surgery: No Orthopedic Surgery: No - Immunization History Immunization Up to Date: Yes - Psycho/Social/Smoking Cessation Hx Anxiety: No Suicidal Ideation: No Smoking History: Never smoked Have you smoked in the past 12 months: No Number of Cigarettes Smoked Daily: 0 If you are a former smoker, when did you quit?: 2YRS 'Breaking Loose' booklet given: 08/10/15 Hx Alcohol Use: No Drug/Substance Use Hx: No Substance Use Type: None Hx Substance Use Treatment: No <Flavio Glover - Last Filed: 09/04/16 06:51> - Past Medical History Allergies/Adverse Reactions: Allergies Allergy/AdvReac Type Severity Reaction Status Date / Time No Known Allergies Allergy Verified 09/03/16 23:21 Home Medications: Ambulatory Orders Aspirin [ASA -] 81 mg PO DAILY 09/19/15 Apixaban [Eliquis] 2.5 mg PO BID 11/26/15 Lorazepam 1 mg PO ASDIR PRN 02/17/16 Pantoprazole Sodium [Protonix] 40 mg PO DAILY 02/17/16 Rosuvastatin Calcium [Crestor] 5 mg PO HS 02/17/16 Sevelamer HCl [Renagel] 850 mg PO TID 02/17/16 Sertraline HCl [Zoloft -] 50 mg PO DAILY 08/28/16 Budesonide/Formeterol Fumarate [SYMBICORT 160/4.5mcg -] 2 inh PO BID 09/03/16 Docusate Sodium [Colace -] 300 mg PO HS #90 tab 09/03/16 Metoprolol Succinate [Toprol XL -] 100 mg PO BID #60 tab 09/03/16 Polyethylene Glycol 3350 [Miralax 119 gm Btl -] 17 gm PO BID bottle 09/03/16 Review of Systems - Review of Systems Able to Perform ROS?: Yes Comments:: 09/03/16 23:50 CONSTITUTIONAL: Absent: fever, no chills, no fatigue EYES: Absent: visual changes ENT: Absent: ear pain, no sore throat CARDIOVASCULAR: Absent: chest pain, no palpitations RESPIRATORY: Present: (+) shortness of breath Absent: cough GI: Absent: abdominal pain, no nausea, no vomiting, no constipation, no diarrhea GENITOURINARY: Absent: dysuria, no frequency, no hematuria MUSCULOSKELETAL: Absent: back pain, no arthralgia, no myalgia SKIN: Absent: rash NEURO: Absent: headache <Uts,Kiara - Last Filed: 09/04/16 06:29> *Physical Exam - Vital Signs Last Vital Signs Temp Pulse Resp BP Pulse Ox 114 H 24 120/50 94 L 09/03/16 23:23 09/03/16 23:23 09/03/16 23:23 09/03/16 23:23 - Physical Exam Comments: 09/03/16 23:50 GENERAL: Well-appearing, well-nourished. No apparent distress. HEENT: Normocephalic, atraumatic. PERRL, EOM intact. CARDIOVASCULAR: Normal S1, S2. Regular rate and rhythm. PULMONARY: Bilateral wheezing and rhonchi. ABDOMEN: Soft, non-distended, non-tender. EXTREMITIES: Fistula in LUE. Normal ROM in all four extremities. No gross deformities. SKIN: Warm, dry. No rash NEUROLOGICAL: No focal neurological deficits. <Kiara Macario - Last Filed: 09/04/16 06:29> - Vital Signs Last Vital Signs Temp Pulse Resp BP Pulse Ox 114 H 24 120/50 94 L 09/03/16 23:23 09/03/16 23:23 09/03/16 23:23 09/03/16 23:23 <Flavio Glover - Last Filed: 09/04/16 06:51> ED Treatment Course - LABORATORY CBC & Chemistry Diagram: 09/04/16 00:20 09/04/16 00:20 <Kiara Macario - Last Filed: 09/04/16 06:29> - LABORATORY CBC & Chemistry Diagram: 09/04/16 00:20 09/04/16 00:20 <Flavio Glover - Last Filed: 09/04/16 06:51> Medical Decision Making - Medical Decision Making 09/04/16 06:[address] Zuluaga <AmirahKiara - Last Filed: 09/04/16 06:29> - Medical Decision Making 09/04/16 06:27 Dr. Glover: The scribe's documentation has been prepared under my direction and personally reviewed by me in its entirery. I confirm that the note above accurately reflects all work, treatment, procedures, and medical decision making performed by me. PT still mildly SOB. Pt is due t be dialyzed today. Pt to go directly go to dialysis center from the ER, as arrangements have been by [facility] <Flavio Glover - Last Filed: 09/04/16 06:51> *DC/Admit/Observation/Transfer - Attestations Scribe Attestion: 09/03/16 23:51 Documentation prepared by Kiara Macario, acting as medical equipment technician for Flavio Glover DO. <Kiara Macario - Last Filed: 09/04/16 06:29> - Discharge Dispostion Admit: No <Flavio Glover - Last Filed: 09/04/16 06:51> Diagnosis at time of Disposition: ESRD needing dialysis, COPD exacerbation - Discharge Dispostion Disposition: HOME Condition at time of disposition: Stable - Referrals
[2016-09-04] MEDS ORDERED: MAGNESIUM SULF 50% (8.12 MEQ/2 ML-1 GM VIAL) ONE (00:16)
[2016-09-04 00:51] LABS: BASOPHIL 0.6 % (0-2.0); MCH 31.6 pg (25.7-33.7); MCHC 32.2 g/dl (32.0-36.0); MEAN PLT VOLUME 9.7 fl (7.5-11.1); PLATELET COUNT 245 K/MM3 (134-434); RDW 20.8 % (11.6-15.6); WHITE BLOOD COUNT 10.1 K/mm3 (4.0-10.0)
[2016-09-04 01:06] LABS: INR 1.62 (0.82-1.09)
[2016-09-04 01:15] LABS: ALBUMIN 3.2 g/dl (3.4-5.0); COCKROFT - GAULT 7.1485; CREATININE 5.3 mg/dL (0.55-1.02)
[2016-09-04 01:31] LABS: BILIRUBIN,TOTAL 0.5 mg/dL (0.2-1.0); TOT PROT 6.8 g/dl (6.4-8.2); TROPONIN I 0.2 ng/ml (0.00-0.05)
[2016-09-04 04:01] LABS: ANISOCYTOSIS 1+
--- NOTE | 2016-09-04 06:52 | CONSULT ---
Consultation: REQUESTING PROVIDER: CONSULT REQUEST: We have been asked to medically evaluate this patient for SOB assumed to be secondary to fluid overload. HISTORY OF PRESENT ILLNESS: 80 y/o Female discharged from inpatient yesterday afternoon, returned to ED c/o of SOB while going to sleep. REVIEW OF SYSTEMS: CONSTITUTIONAL: Absent: fever, chills, diaphoresis, generalized weakness, malaise, loss of appetite, weight change HEENT: Absent: rhinorrhea, nasal congestion, throat pain, throat swelling, difficulty swallowing, mouth swelling, ear pain, eye pain, visual changes CARDIOVASCULAR: Absent: chest pain, syncope, palpitations, irregular heart rate, lightheadedness , peripheral edema RESPIRATORY: Absent: cough, shortness of breath, dyspnea with exertion, orthopnea, wheezing, stridor, hemoptysis GASTROINTESTINAL: Absent: abdominal pain, abdominal distension, nausea, vomiting, diarrhea, constipation, melena, hematochezia GENITOURINARY: Absent: dysuria, frequency, urgency, hesitancy, hematuria, flank pain, genital pain MUSCULOSKELETAL: Absent: myalgia, arthralgia, joint swelling, back pain, neck pain SKIN: Absent: rash, itching, pallor HEMATOLOGIC/IMMUNOLOGIC: Absent: easy bleeding, easy bruising, lymphadenopathy, frequent infections ENDOCRINE: Absent: unexplained weight gain, unexplained weight loss, heat intolerance, cold intolerance NEUROLOGIC: Absent: headache, focal weakness or paresthesias, dizziness, unsteady gait, seizure, mental status changes, bladder or bowel incontinence PSYCHIATRIC: Absent: anxiety, depression, suicidal or homicidal ideation, hallucinations. PHYSICAL EXAMINATION Vital Signs - 24 hr 09/03/16 09/04/16 09/04/16 23:23 00:00 06:33 Temperature 97.6 F Pulse Rate 114 H Pulse Rate [ 85 Right] Respiratory 24 18 Rate Blood Pressure 120/50 Blood Pressure 134/52 [Right] O2 Sat by Pulse 94 L 90 L 97 Oximetry (%) GENERAL: Awake, alert, and fully oriented, in no acute distress. HEAD: Normal with no signs of trauma. EYES: Pupils equal, round and reactive to light, extraocular movements intact, sclera anicteric, conjunctiva clear. No lid lag. EARS, NOSE, THROAT: Ears normal, nares patent, oropharynx clear without exudates. Moist mucous membranes. NECK: No JVD. LUNGS: Breath sounds equal. No wheezes, and no crackles. No accessory muscle use. HEART: Regular rate and rhythm, normal S1 and S2 without murmur, rub or gallop. ABDOMEN: Soft, nontender, not distended, normoactive bowel sounds, no guarding, no rebound, no masses. No hepatomegaly or splenomegaly. UPPER EXTREMITIES: 2+ pulses, warm, well-perfused. No cyanosis. No clubbing. Cap refill <2 seconds. No peripheral edema. LOWER EXTREMITIES: 2+ pulses, warm, well-perfused. No calf tenderness. No peripheral edema. NEUROLOGICAL: Cranial nerves II-XII intact. Normal speech. Normal gait. PSYCHIATRIC: Cooperative. Good eye contact. Appropriate mood and affect. SKIN: Warm, dry, normal turgor, no rashes or lesions noted. Laboratory Results - last 24 hr 09/04/16 09/04/16 09/04/16 00:20 00:20 00:20 WBC 10.1 H RBC 3.44 L Hgb 10.8 Hct 33.7 MCV 98.0 H MCHC 32.2 RDW 20.8 H Plt Count 245 D MPV 9.7 Neutrophils % 77.0 Lymphocytes % 11.3 Monocytes % 10.1 Eosinophils % 1.0 Basophils % 0.6 Anisocytosis 1+ Macrocytosis Few INR 1.62 H Sodium 143 Potassium 4.0 Chloride 100 Carbon Dioxide 24 Anion Gap 19 H BUN 42 H Creatinine 5.3 H Creat Clearance w eGFR 7.75 Random Glucose 125 H Calcium 8.0 L Magnesium 2.0 Total Bilirubin 0.5 D AST 49 H D ALT 48 Alkaline Phosphatase 156 H Creatine Kinase 44 Troponin I 0.20 H B-Natriuretic Peptide Total Protein 6.8 Albumin 3.2 L ASSESSMENT/PLAN: Dispo: Spoke with Dr Camar[place] patient is set up for outpatient dialysis today at [facility] will discharge patient with transfer to [facility] for outpatient dialysis. Patient is anxious and needs to be educated about her ESRD and COPD more. May need to consider palliative care consult, to improve the quality of patient's life. Thank you for this consultative opportunity.
[2016-09-04] MEDS ORDERED: LORazepam 1 MG TABLET PO ONE (07:16)
[2016-09-04 07:23] VITALS: BP 130/52; PULSE 81; TEMP 97.8
--- NOTE | 2016-09-04 09:40 | EKG ---
Test Reason : Blood Pressure : / mmHG Vent. Rate : 087 BPM Atrial Rate : 087 BPM P-R Int : 188 ms QRS Dur : 134 ms QT Int : 410 ms P-R-T Axes : 088 104 055 degrees QTc Int : 493 ms SINUS RHYTHM WITH OCCASIONAL PREMATURE VENTRICULAR COMPLEXES AND PREMATURE ATRIAL COMPLEXES RIGHTWARD AXIS NON-SPECIFIC INTRA-VENTRICULAR CONDUCTION BLOCK CANNOT RULE OUT ANTEROSEPTAL INFARCT (CITED ON OR BEFORE 15-MAY-2016) ABNORMAL ECG WHEN COMPARED WITH ECG OF 03-SEP-2016 09:15, PREMATURE VENTRICULAR COMPLEXES ARE NOW PRESENT Confirmed by JENNY LYONS MD ([id number]) on 09/04/2016 9:40:16 AM Referred By: Confirmed By:JENNY LYONS MD
== END 2016-09-04 08:05 | disposition home or self-care (01) ==
LOC: JER 23:14 → JERBED 09-04 06:25 → UNDOADMOB 09-04 06:25 → JERBED 09-04 06:36 → INTOOBSV 09-04 06:36 → UNDOADMOB 09-04 06:36 → JER 09-04 08:05
PROC: 3E0F7GC Introduction of Other Therapeutic Substance into Respiratory Tract, Via Natural or Artificial Opening (ICD-10-PCS; principal; 2016-09-03)
PROC: 3E033GC Introduction of Other Therapeutic Substance into Peripheral Vein, Percutaneous Approach (ICD-10-PCS; 2016-09-03)
DX: J44.1 Chronic obstructive pulmonary disease with (acute) exacerbation (principal); Z99.81 Dependence on supplemental oxygen; I25.10 Atherosclerotic heart disease of native coronary artery without angina pectoris; I13.11 Hypertensive heart and chronic kidney disease without heart failure, with stage 5 chronic kidney disease, or end stage renal disease; N18.6 End stage renal disease; Z99.2 Dependence on renal dialysis; Z95.5 Presence of coronary angioplasty implant and graft; E03.9 Hypothyroidism, unspecified; I48.91 Unspecified atrial fibrillation; Z79.01 Long term (current) use of anticoagulants
CPT/HCPCS: 36415; 80053; 82550; 83735; 83880; 84484; 85025; 85610; 93005; 93010; 99285-25

== ENCOUNTER 2016-09-27 13:22 | Inpatient (IN) | payer OTHER, BC ==
--- NOTE | 2016-09-27 14:05 | PDOC ---
History of Present Illness - General Chief Complaint: Vomiting/Diarrhea Stated Complaint: NAUSEA/VOMITING Time Seen by Provider: 09/27/16 13:29 History Source: Patient - History of Present Illness Associated Symptoms: reports: shortness of breath. denies: chest pain, fever/ chills, nausea/vomiting Past History - Past Medical History Allergies/Adverse Reactions: Allergies Allergy/AdvReac Type Severity Reaction Status Date / Time No Known Allergies Allergy Verified 09/27/16 13:37 Home Medications: Ambulatory Orders Aspirin [ASA -] 81 mg PO DAILY 09/19/15 Apixaban [Eliquis] 2.5 mg PO BID 11/26/15 Lorazepam 1 mg PO ASDIR PRN 02/17/16 Pantoprazole Sodium [Protonix] 40 mg PO DAILY 02/17/16 Rosuvastatin Calcium [Crestor] 5 mg PO HS 02/17/16 Sevelamer HCl [Renagel] 850 mg PO TID 02/17/16 Sertraline HCl [Zoloft -] 50 mg PO DAILY 08/28/16 Budesonide/Formeterol Fumarate [SYMBICORT 160/4.5mcg -] 2 inh PO BID 09/03/16 Docusate Sodium [Colace -] 300 mg PO HS #90 tab 09/03/16 Metoprolol Succinate [Toprol XL -] 100 mg PO BID #60 tab 09/03/16 Polyethylene Glycol 3350 [Miralax 119 gm Btl -] 17 gm PO BID bottle 09/03/16 Anemia: Yes Asthma: No Cancer: No Cardiac Disorders: Yes (a fib) CVA: No COPD: Yes CHF: Yes DVT: No Dementia: No Diabetes: No Dialysis: Yes (m,w,f) GI Disorders: No Disorders: Yes (OVERACTIVE BLADDER) HTN: Yes Hypercholesterolemia: Yes Kidney Stones: No (ESRD dyalisis --Wednesday) Liver Disease: No Psychiatric Problems: Yes Seizures: No Thyroid Disease: Yes (HYPO.) - Surgical History Abdominal Surgery: No Appendectomy: No Cardiac Surgery: Yes (STENTS X 3;DEFIBRILLATOR 09/27/15) Cholecystectomy: No Lung Surgery: No ([employer] [id number]) Neurologic Surgery: No Orthopedic Surgery: No - Immunization History Immunization Up to Date: Yes - Psycho/Social/Smoking Cessation Hx Anxiety: No Suicidal Ideation: No Smoking History: Former smoker Have you smoked in the past 12 months: No Number of Cigarettes Smoked Daily: 0 If you are a former smoker, when did you quit?: 2YRS Information on smoking cessation initiated: No 'Breaking Loose' booklet given: 08/10/15 Hx Alcohol Use: No Drug/Substance Use Hx: No Substance Use Type: None Hx Substance Use Treatment: No Review of Systems - Review of Systems Constitutional: No: Fever Respiratory: Yes: Shortness of Breath. No: Cough Cardiac (ROS): No: Chest Pain, Lightheadedness, Palpitations ABD/GI: Yes: Diarrhea, Abdominal cramping. No: Nausea, Vomiting : No: Dysuria *Physical Exam - Vital Signs Last Vital Signs Temp Pulse Resp BP Pulse Ox 96.5 F L 86 18 99/63 100 09/27/16 13:49 09/27/16 13:28 09/27/16 13:28 09/27/16 13:28 09/27/16 13:28 - Physical Exam General Appearance: Yes: Appropriately Dressed. No: Apparent Distress HEENT: positive: Normal Voice Neck: positive: Supple Respiratory/Chest: positive: Normal Breath Sounds, Accessory Muscle Use. negative: Respiratory Distress Cardiovascular: positive: Regular Rate, S1, S2 Gastrointestinal/Abdominal: positive: Soft. negative: Tender Integumentary: positive: Dry, Warm Neurologic: positive: Fully Oriented, Alert, Normal Mood/Affect ED Treatment Course - LABORATORY CBC & Chemistry Diagram: 09/27/16 15:00 09/27/16 15:00 - RADIOLOGY Radiology Studies Ordered: Category Date Time Status CHEST X-RAY PORTABLE* [RAD] Stat Radiology 09/27/16 13:39 Ordered Medical Decision Making - Medical Decision Making 09/27/16 13:59 80-year-old female, history of anxiety, anemia, hypothyroid, HTN, HLD, A.fib on eliquis, severe systolic CHF, defibrillator,t COPD on home O2, CAD with stents 3, end-stage renal disease on hemodialysis (Wednesdays, Fridays), here with multiple complaints including multiple episodes of nonbloody diarrhea since yesterday with some vague lower abdominal pain. Denies any nausea, vomiting, fever or chills. Also complaining of shortness of breath since yesterday. States her AICD fired while having a bowel movement this afternoon. No chest pain or diaphoresis. See exam Diarrheal illness x 24 hrs Hypotensive at triage but afebrile w/ benign abd -IVF -labs SOB w/ firing of AICD Sating 100% on RA w/ BP 90s/50s but alert w/ chest/lungs clear EKG done at triage largely unchanged from prior R/o ACS vs CHF flare vs COPD flare vs PNA, less likely PE -AICD interrogation -CXR -labs -cards c/s and admit 09/27/16 14:27 Spoke to interrogator at [facility] ([phone]) , will come evaluate device in ED 09/27/16 14:41 09/27/16 14:51 09/27/16 15:33 Decision to give IVF for hypotension d/w renal, states if pt not volume overloaded and no s/o significant congestion on exam, can given 250cc IVF bolus and reassess. AICD interrogator at bedside 09/27/16 16:13 09/27/16 16:42 As per interrogator, states aicd machine incorrectly identifying afib as vtach and shocking pt. Dr Mcclain aware and states pt will need to be seen by EP inhouse. Aware that ekg unchanged and that trop 0.05, similar to in the past, does not rec any intervention at this time. BNP pending. Admit to tele. Hospitalist aware 09/27/16 17:17 *DC/Admit/Observation/Transfer Diagnosis at time of Disposition: Defibrillator discharge Hypotension Qualifiers: Hypotension type: unspecified hypotension type Qualified Code(s): I95.9 - Hypotension, unspecified - Discharge Dispostion Condition at time of disposition: Fair Admit: Yes
[2016-09-27] MEDS ORDERED: ALBUTEROL SO4 2.5/IPRATROPIUM 0.5 INH SOL 3 ML VIAL.NEB. NEB ONE ×2 (14:11→20:43)
[2016-09-27 15:12] LABS: BASOPHIL 0.3 % (0-2.0); EOSINOPHIL 0.2 % (0-4.5); MCH 31.7 pg (25.7-33.7); MCHC 30.8 g/dl (32.0-36.0); MEAN CELL VOLUME 102.9 fl (80-96); MEAN PLT VOLUME 8.8 fl (7.5-11.1); NEUTROPHILS 87.3 % (42.8-82.8); PLATELET COUNT 260 K/MM3 (134-434); RDW 20.2 % (11.6-15.6); WHITE BLOOD COUNT 14.4 K/mm3 (4.0-10.0)
[2016-09-27] MEDS ORDERED: SODIUM CHLORIDE 250 ML IV STA ×2 (15:33→16:13)
[2016-09-27 15:39] LABS: ALBUMIN 3.5 g/dl (3.4-5.0); ANION GAP 23 (8-16); BILIRUBIN,TOTAL 0.6 mg/dL (0.2-1.0); CALCIUM 8.8 mg/dL (8.5-10.1); CO2 17 mmol/L (21-32); CREATININE 6.1 mg/dL (0.55-1.02); GLUCOSE,RANDOM 125 mg/dL (74-106); SGPT/ALT 55 U/L (12-78); TOT PROT 7.3 g/dl (6.4-8.2)
[2016-09-27 15:54] LABS: ALK PHOS 178 U/L (45-117)
[2016-09-27 16:18] LABS: SGOT/AST 57 U/L (15-37)
[2016-09-27 16:20] LABS: TROPONIN I 0.56 ng/ml (0.00-0.05)
[2016-09-27] MEDS ORDERED: LORAZEPAM CARPU-JECT 2 MG/ML DISP.SYRIN IVPUSH ONE (16:25)
[2016-09-27] MEDS ORDERED: LORazepam 2 MG/ML SDV VIAL ONE (16:26)
--- NOTE | 2016-09-27 18:26 | CON.NEP ---
Consult Consult Specialty:: Nephrology Referred by:: Sol Guzmán NP Reason for Consultation:: ESRD - History of Present Illness Chief Complaint: N/V and Diarrhea since yesterday History of Present Illness: Pt is an 80 year old female with PMH of ESRD, A Fib with AICD, COPD on oxygen, HTN, CAD, hypothyroidism, anemia and anxiety who presents to the ER with diarrhea since yesterday. Pt noted to have hypotension so required NS bolus earlier with an improved BP. Pt c/o of some dyspnea but no chest pain, nausea or vomiting. Since this am the stool have been less watery. Also pt reported that her AICD discharged yesterday- AICD interrogated and adjusted and cardiology to evaluate. EKG NSR with first degree AV Block, Fletcher 0, VPCs and intraventricular conduction delay. - Past Medical History Cardio/Vascular: Yes: AFIB, CAD, CHF, HTN, [place], Hyperlipdemia Pulmonary: Yes: COPD Renal/: Yes: Renal Failure (on HD), Hemodialysis Psych: Yes: Anxiety, Depression Endocrine: Yes: Hypothyroidism - Past Surgical History Past Surgical History: Yes: AV Fistula/Graft, Stent - Alcohol/Substance Use Hx Alcohol Use: No History of Substance Use: reports: None - Smoking History Smoking history: Former smoker Have you smoked in the past 12 months: No Aproximately how many cigarettes per day: 0 If you are a former smoker, when did you quit?: 2YRS - Social History Usual Living Arrangement: With Significant Other ADL: Independent History of Recent Travel: No Home Medications - Allergies Allergies/Adverse Reactions: Allergies Allergy/AdvReac Type Severity Reaction Status Date / Time No Known Allergies Allergy Verified 09/27/16 13:37 - Home Medications Home Medications: Ambulatory Orders Aspirin [ASA -] 81 mg PO DAILY 09/19/15 Apixaban [Eliquis] 2.5 mg PO BID 11/26/15 Lorazepam 1 mg PO ASDIR PRN 02/17/16 Pantoprazole Sodium [Protonix] 40 mg PO DAILY 02/17/16 Rosuvastatin Calcium [Crestor] 5 mg PO HS 02/17/16 Sevelamer HCl [Renagel] 850 mg PO TID 02/17/16 Sertraline HCl [Zoloft -] 50 mg PO DAILY 08/28/16 Budesonide/Formeterol Fumarate [SYMBICORT 160/4.5mcg -] 2 inh PO BID 09/03/16 Docusate Sodium [Colace -] 300 mg PO HS #90 tab 09/03/16 Metoprolol Succinate [Toprol XL -] 100 mg PO BID #60 tab 09/03/16 Polyethylene Glycol 3350 [Miralax 119 gm Btl -] 17 gm PO BID bottle 09/03/16 Nephrology Consult - Height Height: 5 ft 3 in - Weight Weight: 125 lb - BMI Body Mass Index (BMI): 22.1 - Lab Results CBC,BMP: Laboratory Tests 09/27/16 15:00 WBC 14.4 H D RBC 3.90 Hgb 12.4 D Hct 40.2 D Plt Count 260 Laboratory Tests 09/27/16 15:00 Sodium 140 Potassium 5.2 H D Chloride 100 Carbon Dioxide 17 L D Anion Gap 23 H BUN 53 H D Creatinine 6.1 H Creat Clearance w eGFR 6.59 Random Glucose 125 H Calcium 8.8 Total Bilirubin 0.6 AST 57 H ALT 55 Alkaline Phosphatase 178 H Creatine Kinase 83 Troponin I 0.56 H Total Protein 7.3 Albumin 3.5 Anion Gap: Anion Gap Anion Gap 23 (8-16) H 09/27/16 15:00 - Imaging Chest X-ray: Report Reviewed X-ray: Report Reviewed, Image Reviewed - Physical Examination Vital Signs: Vital Signs Temperature 96.5 F L 09/27/16 13:49 Pulse Rate 81 09/27/16 16:45 Respiratory Rate 16 09/27/16 16:45 Blood Pressure 136/106 09/27/16 16:45 O2 Sat by Pulse Oximetry (%) 96 09/27/16 16:45 Selected Entries 09/27/16 09/27/16 16:30 18:00 Blood Pressure 88/60 109/59 [Right Arm] Blood Pressure 69 75 Mean [Right Arm ] Cardiovascular: Yes: S1, S2. No: JVD Respiratory: Yes: CTA Bilaterally. No: Wheezes Gastrointestinal: Yes: Soft, Other (Mild discomfort diffusely without rebound) Extremities: Yes: Other (LUE with AVG that has a thrill) Edema: No Neurological: Yes: Alert, Oriented Assessment/Plan mpression 1. ESRD 2. Arrhythmia with PAF and AICD that discharged 3. Diarrhea ? self limited since it appears to have improved within 24 hours 4. CHF 5. COPD 6. HTN 7. hyperlipidemia 8. Hypothyroidism Plan Admit to telemetry Work up for the diarrhea if it persists Consider abx if pt develops worsening abdominal discomfort, WBCs, fever , chills etc No BP or IV in the LUE Restrict K and Na in the diet Continuous NC O2 as usual Usual medication Cardiology opinion Next HD tomorrow Rpt labs in am Thank You Will follow Dr Lira
--- NOTE | 2016-09-27 20:05 | EKG ---
Test Reason : Blood Pressure : / mmHG Vent. Rate : 088 BPM Atrial Rate : 088 BPM P-R Int : 208 ms QRS Dur : 134 ms QT Int : 478 ms P-R-T Axes : 097 223 079 degrees QTc Int : 578 ms SUSPECT ARM LEAD REVERSAL, INTERPRETATION ASSUMES NO REVERSAL SINUS RHYTHM WITH 1ST DEGREE A-V BLOCK WITH OCCASIONAL PREMATURE VENTRICULAR COMPLEXES POSSIBLE LEFT ATRIAL ENLARGEMENT RIGHT SUPERIOR AXIS DEVIATION NON-SPECIFIC INTRA-VENTRICULAR CONDUCTION BLOCK CANNOT RULE OUT SEPTAL INFARCT (CITED ON OR BEFORE 15-MAY-2016) ST DEPRESSION IN LATERAL LEADS ABNORMAL ECG WHEN COMPARED WITH ECG OF 04-SEP-2016 06:33, SIGNIFICANT CHANGES HAVE OCCURRED Confirmed by SHIRA OLSEN, TRISH ([id number]) on 09/27/2016 8:05:49 PM Referred By: Confirmed By:TRISH SILVA MD
--- NOTE | 2016-09-27 20:15 | CON.CARD ---
Consult Consult Specialty:: cardiology Reason for Consultation:: ICD shock - History of Present Illness History of Present Illness: 80-year-old white female with PMHx of anxiety, anemia, hypothyroid, HTN, HLD, A.fib on eliquis, severe systolic CHF, defibrillator; COPD on home O2, CAD with stents 3, end-stage renal disease on hemodialysis (Wednesdays, Fridays), here with multiple complaints, including multiple episodes of nonbloody diarrhea since yesterday with some vague lower abdominal pain. Denies any nausea, vomiting, fever or chills. Also complaining of shortness of breath since yesterday. States her AICD fired while having a bowel movement this afternoon. No chest pain or diaphoresis. See exam Diarrheal illness x 24 hrs Hypotensive at triage but afebrile w/ benign abd -IVF -labs SOB w/ firing of AICD Sating 100% on RA w/ BP 90s/50s but alert w/ chest/lungs clear - History Source History Provided By: Patient, Medical Record Limitations to Obtaining History: No Limitations - Past Medical History Cardio/Vascular: Yes: AFIB, CAD, CHF, HTN, [place], Hyperlipdemia Pulmonary: Yes: COPD Gastrointestinal: Yes: GERD Renal/: Yes: Renal Failure (on HD), Hemodialysis Reproductive: Yes: Postmenopausal ...: No Psych: Yes: Anxiety, Depression Endocrine: Yes: Hypothyroidism - Past Surgical History Past Surgical History: Yes: AV Fistula/Graft, Stent - Alcohol/Substance Use Hx Alcohol Use: No History of Substance Use: reports: None - Smoking History Smoking history: Former smoker Have you smoked in the past 12 months: No Aproximately how many cigarettes per day: 0 If you are a former smoker, when did you quit?: 2YRS - Social History Usual Living Arrangement: With Significant Other ADL: Independent History of Recent Travel: No Home Medications - Allergies Allergies/Adverse Reactions: Allergies Allergy/AdvReac Type Severity Reaction Status Date / Time No Known Allergies Allergy Verified 09/27/16 13:37 - Home Medications Home Medications: Ambulatory Orders Aspirin [ASA -] 81 mg PO DAILY 09/19/15 Apixaban [Eliquis] 2.5 mg PO BID 11/26/15 Lorazepam 1 mg PO ASDIR PRN 02/17/16 Pantoprazole Sodium [Protonix] 40 mg PO DAILY 02/17/16 Rosuvastatin Calcium [Crestor] 5 mg PO HS 02/17/16 Sevelamer HCl [Renagel] 850 mg PO TID 02/17/16 Sertraline HCl [Zoloft -] 50 mg PO DAILY 08/28/16 Budesonide/Formeterol Fumarate [SYMBICORT 160/4.5mcg -] 2 inh PO BID 09/03/16 Docusate Sodium [Colace -] 300 mg PO HS #90 tab 09/03/16 Metoprolol Succinate [Toprol XL -] 100 mg PO BID #60 tab 09/03/16 Polyethylene Glycol 3350 [Miralax 119 gm Btl -] 17 gm PO BID bottle 09/03/16 Family Disease History - Family Disease History Family History: Denies Review of Systems - Review of Systems Constitutional: reports: Weakness Eyes: reports: No Symptoms HENT: reports: No Symptoms Neck: reports: No Symptoms Cardiovascular: reports: Palpitations, Shortness of Breath Respiratory: reports: Exercise Intolerance, SOB on Exertion Gastrointestinal: reports: Diarrhea, Nausea Genitourinary: reports: No Symptoms Breasts: reports: No Symptoms Reported Musculoskeletal: reports: Muscle Weakness Integumentary: reports: No Symptoms Neurological: reports: Weakness Psychiatric: reports: Anxiety, Depression, Panic - Risk Factors Known Risk Factors: Yes: Age, Hypercholesterolemia, Hypertension, Physical Inactivity, Smoking (former), Other (systolic CHF; AF) Vital Signs: Vital Signs Temperature 97.8 F 09/27/16 18:30 Pulse Rate 87 09/27/16 18:30 Respiratory Rate 20 09/27/16 18:30 Blood Pressure 114/59 09/27/16 18:30 O2 Sat by Pulse Oximetry (%) 98 09/27/16 18:30 Constitutional: Yes: Anxious - Other Data Labs, Other Data: Troponin, BNP 09/27/16 18:23 B-Natriuretic Peptide 810782.8 H Troponin, BNP 09/27/16 18:23 B-Natriuretic Peptide 547392.8 H Imaging - Results Chest X-ray: Image Reviewed (no acute pathology) EKG: Image Reviewed (likely arm reversal; no acute STT changes) Problem List - Problems (1) Defibrillator discharge Assessment/Plan: inappropriate ICD discharge, despite modification of parameters 05/2016, when a similar event occurred. F/u on telemetry; for consultation with AWA Adames. Code(s): Z45.02 - ENCNTR FOR ADJUST AND MGMT OF AUTOMATIC IMPLNTBL CARD DEFIB (2) Acute on chronic systolic and diastolic heart failure, NYHA class 3 Assessment/Plan: On beta blockers; Hydralazine + nitrate for CHF (problematic using ACEI or ARB due to renal dysfunction) when BP stabilizes (admitted with diarrhea and hypotension-->IV fluids). For hemodialysis per lead customer service representative. Code(s): I50.43 - ACUTE ON CHRONIC COMBINED SYSTOLIC AND DIASTOLIC HRT FAIL (3) Atrial fibrillation with tachycardic ventricular rate Assessment/Plan: on metoprolol ER and apixaban (as well as ASA, because of CAD). Code(s): I48.91 - UNSPECIFIED ATRIAL FIBRILLATION (4) COPD exacerbation Code(s): J44.1 - CHRONIC OBSTRUCTIVE PULMONARY DISEASE W (ACUTE) EXACERBATION (5) ESRD (end stage renal disease) on dialysis Assessment/Plan: K 5.2. hemodialysis per lead customer service representative. (6) HTN (hypertension) Code(s): I10 - ESSENTIAL (PRIMARY) HYPERTENSION Qualifiers: Hypertension type: essential hypertension Qualified Code(s): I10 - Essential (primary) hypertension (7) Hyperlipidemia Code(s): E78.5 - HYPERLIPIDEMIA, UNSPECIFIED (8) Palpitations Code(s): R00.2 - PALPITATIONS (9) Panic anxiety syndrome Code(s): F41.0 - PANIC DISORDER WITHOUT AGORAPHOBIA (10) CAD (coronary artery disease) Code(s): I25.10 - ATHSCL HEART DISEASE OF [place] CORONARY ARTERY W/O ANG PCTRS Qualifiers:
--- NOTE | 2016-09-27 21:27 | PN ---
<NoraPadillajamilah - Last Filed: 09/27/16 21:27> Teaching Attending Note Name of Resident: Cory Mcnamara ATTENDING PHYSICIAN STATEMENT I saw and evaluated the patient. I reviewed the resident's note and discussed the case with the resident. I agree with the resident's findings and plan as documented. SUBJECTIVE: OBJECTIVE: ASSESSMENT AND PLAN: <Iván Hernandez - Last Filed: 09/27/16 22:00> Teaching Attending Note ATTENDING PHYSICIAN STATEMENT I saw and evaluated the patient. I reviewed the resident's note and discussed the case with the resident. I agree with the resident's findings and plan as documented. SUBJECTIVE: The patient is a 80-year-old female, history of anxiety, anemia, hypothyroid, HTN, HLD, A.fib on eliquis, severe systolic CHF, defibrillator,t COPD on home O2 , CAD with stents 3, end-stage renal disease on hemodialysis (Wednesdays , Fridays), who presents with non bloody diarrhea, nausea, vomiting, and abdominal pain since yesterday notes that her ICD fired while having a bowel movement as noted by nursing with bright red stool. OBJECTIVE: Last Vital Signs 3 Temp Pulse Resp BP Pulse Ox 97.8 F 87 20 114/59 98 09/27/16 18:30 09/27/16 18:30 09/27/16 18:30 09/27/16 18:30 09/27/16 18:30 Physical Exam: GEN: NAD HEENT: NCAT, PERRL CARD: RRR, S1 S2 RESP: CTAB ABD: (+) RUQ tenderness on palpation. BWS x4 RECT: (+) Red currant jelly EXT: - CCE Labs: CBCD 3 WBC 14.4 K/mm3 (4.0-10.0) H D 09/27/16 15:00 RBC 3.90 M/mm3 (3.60-5.2) 09/27/16 15:00 Hgb 12.4 GM/dL (10.7-15.3) D 09/27/16 15:00 Hct 40.2 % (32.4-45.2) D 09/27/16 15:00 MCV 102.9 fl (80-96) H 09/27/16 15:00 MCHC 30.8 g/dl (32.0-36.0) L 09/27/16 15:00 RDW 20.2 % (11.6-15.6) H 09/27/16 15:00 Plt Count 260 K/MM3 (134-434) 09/27/16 15:00 MPV 8.8 fl (7.5-11.1) 09/27/16 15:00 CMP 3 Sodium 140 mmol/L (136-145) 09/27/16 15:00 Potassium 5.2 mmol/L (3.5-5.1) H D 09/27/16 15:00 Chloride 100 mmol/L (98-107) 09/27/16 15:00 Carbon Dioxide 17 mmol/L (21-32) L D 09/27/16 15:00 Anion Gap 23 (8-16) H 09/27/16 15:00 BUN 53 mg/dL (7-18) H D 09/27/16 15:00 Creatinine 6.1 mg/dL (0.55-1.02) H 09/27/16 15:00 Creat Clearance w eGFR 6.59 (>60) 09/27/16 15:00 Calcium 8.8 mg/dL (8.5-10.1) 09/27/16 15:00 Total Bilirubin 0.6 mg/dL (0.2-1.0) 09/27/16 15:00 AST 57 U/L (15-37) H 09/27/16 15:00 ALT 55 U/L (12-78) 09/27/16 15:00 Alkaline Phosphatase 178 U/L (45-117) H 09/27/16 15:00 Total Protein 7.3 g/dl (6.4-8.2) 09/27/16 15:00 Albumin 3.5 g/dl (3.4-5.0) 09/27/16 15:00 Imaging: EXAM#: TYPE/EXAM: RESULT: [id number] RAD/CHEST X-RAY PORTABLE* Chest: Shortness of breath Since the prior study of 08/28/2016, again is a large heart with sclerotic knob and a persistent left-sided device with tip by the right upper mediastinum. There is no sign of infiltrate, failure or pneumothorax. The bones and soft tissues are intact. Impression : Left-sided device. Large heart. No acute chest pathology. Reported By: Estuardo Arias MD 09/27/16 9020 ASSESSMENT AND PLAN: The patient is a 80-year-old female, history of anxiety, anemia, hypothyroid, HTN, HLD, A.fib on eliquis, severe systolic CHF, defibrillator,t COPD on home O2 , CAD with stents 3, end-stage renal disease on hemodialysis (Wednesdays , Fridays), who presents with diarrhea and red currant jelly stool and firing of icd being admitted to tele. 1. Diarrhea - C diff pcr - Flagyl - CT abdomen w/o contrast due to pain - O and P/stool culture. - Hold antihypertensive medications for now. 2. Bright red blood per rectum - Stat CBC - hold eliquis - Coags - Type and screen - GI consult - Protonix IV BID 3. AFIB - Currently rate controlled - Continue Metoprolol as blood pressure holds - Hold eliquis due to rectal bleeding 4. Severe CHF- Systolic - ICD fired - EP in AM - Trend troponins - Monitor on tele - Continue home meds when consistent map >70 5. COPD - On home O2 - Continue Symbicort - Continue Nebulizers PRN 6. ESRD on HD - Nephrology on consult - HD in AM 7. DVT PPX - low risk - SCDs Admit to med tele. Documentation prepared by Iván Hernandez, acting as medical records receptionist for Dr. Emilie Melendez MD.
[2016-09-27] MEDS ORDERED: LORazepam 0.5 MG TABLET PO PRN (22:16)
--- NOTE | 2016-09-27 22:17 | HP ---
CHIEF COMPLAINT: diarrhea and abd pain and AICD discharge HISTORY OF PRESENT ILLNESS: 80 y/o F w/PMH of anxiety, anemia, hypothyroidism, HTN, HLD, A-fib on eliquis, systolic CHF, defibrillator, COPD (on oxygen at home), CAD s/p 3 stents, ESRD on dialysis MWF presents to ER w complaints of non-bloody diarrhea since yesterday and abdominal pain. Pain is located in lower abdomen w/no radiation. Her diarrhea is also improving at this time according to her. She states also has SOB that has been worse since last Wednesday but is resolved with albuterol. She feels better receving duo-nebs in the hospital. She also c/o feeling as though her AICD had discharged yesterday and investigated in hospital and noted that aicd is reading a-fib as v-tach and will need further investigation by EP. Pt denies N/V/F/C, chest pain, sick contacts, FERREIRA. I noted the pt to have red jelly like stool upon coming onto the floor. ER course was notable for: (1) duo-neb, NS, CXR (2) (3) Recent Travel: denies PAST MEDICAL HISTORY:anxiety, anemia, hypothyroidism, HTN, HLD, A-fib on eliquis , systolic CHF, defibrillator, COPD (on oxygen at home), CAD s/p 3 stents, ESRD on dialysis MWF PAST SURGICAL HISTORY: AICD, CAD s/p 3 stents Social History: Smoking: Alcohol: Drugs: Family History: Allergies No Known Allergies Allergy (Verified 09/27/16 13:37) HOME MEDICATIONS: Home Medications Medication Instructions Recorded Aspirin [ASA -] 81 mg PO DAILY 09/19/15 Apixaban [Eliquis] 2.5 mg PO BID 11/26/15 Lorazepam 1 mg PO ASDIR PRN 02/17/16 Pantoprazole Sodium [Protonix] 40 mg PO DAILY 02/17/16 Rosuvastatin Calcium [Crestor] 5 mg PO HS 02/17/16 Sevelamer HCl [Renagel] 850 mg PO TID 02/17/16 Sertraline HCl [Zoloft -] 50 mg PO DAILY 08/28/16 Budesonide/Formeterol Fumarate 2 inh PO BID 09/03/16 [SYMBICORT 160/4.5mcg -] Docusate Sodium [Colace -] 300 mg PO HS #90 tab 09/03/16 Metoprolol Succinate [Toprol XL -] 100 mg PO BID #60 tab 09/03/16 Polyethylene Glycol 3350 [Miralax 17 gm PO BID bottle 09/03/16 119 gm Btl -] REVIEW OF SYSTEMS CONSTITUTIONAL: Absent: fever, chills, diaphoresis HEENT: Absent: throat pain, ear pain, eye pain, visual changes CARDIOVASCULAR: Absent: chest pain, syncope, palpitations, irregular heart rate, lightheadedness , peripheral edema RESPIRATORY: +sob Absent: cough GASTROINTESTINAL: +abd pain, diarrhea, (blood in stool witnessed by me) Absent: abdominal distension, nausea, vomiting GENITOURINARY: Absent: dysuria, frequency, urgency, hematuria NEURO: Absent: headache, focal weakness, dizziness PHYSICAL EXAMINATION Vital Signs - 24 hr 09/27/16 09/27/16 18:00 18:30 Temperature 97.6 F 97.8 F Pulse Rate [ 87 87 Left Radial] Respiratory 16 20 Rate Blood Pressure 109/59 114/59 [Right Arm] O2 Sat by Pulse 97 98 Oximetry (%) GENERAL: Awake, alert, in no acute distress. HEAD: Normal with no signs of trauma. EYES: extraocular movements intact, sclera anicteric, conjunctiva clear. No lid lag. EARS, NOSE, THROAT: Ears normal, nares patent NECK: Normal range of motion, supple LUNGS: Breath sounds equal, clear to auscultation bilaterally. HEART: Regular rate and rhythm, normal S1 and S2 ABDOMEN: RUQ and LUQ tenderness. Normoactive BS x4, soft, non-distended. LOWER EXTREMITIES: warm, well-perfused. No calf tenderness. No peripheral edema. RECTAL EXAM: no masses, nodules palpated. Sphincter tone normal. NEUROLOGICAL: Normal speech.Gait not observed. PSYCHIATRIC: Cooperative. Good eye contact. Appropriate mood and affect. SKIN: Warm, dry Laboratory Results - last 24 hr 09/27/16 09/27/16 18:23 20:30 B-Natriuretic Peptide 553716.8 H Stool Occult Blood Positive CBCD WBC 17.7 K/mm3 (4.0-10.0) H 09/27/16 21:55 RBC 3.72 M/mm3 (3.60-5.2) 09/27/16 21:55 Hgb 11.5 GM/dL (10.7-15.3) 09/27/16 21:55 Hct 37.8 % (32.4-45.2) 09/27/16 21:55 MCV 101.6 fl (80-96) H 09/27/16 21:55 MCHC 30.4 g/dl (32.0-36.0) L 09/27/16 21:55 RDW 19.4 % (11.6-15.6) H 09/27/16 21:55 Plt Count 270 K/MM3 (134-434) 09/27/16 21:55 MPV 9.0 fl (7.5-11.1) 09/27/16 21:55 CMP Sodium 140 mmol/L (136-145) 09/27/16 15:00 Potassium 5.2 mmol/L (3.5-5.1) H D 09/27/16 15:00 Chloride 100 mmol/L (98-107) 09/27/16 15:00 Carbon Dioxide 17 mmol/L (21-32) L D 09/27/16 15:00 Anion Gap 23 (8-16) H 09/27/16 15:00 BUN 53 mg/dL (7-18) H D 09/27/16 15:00 Creatinine 6.1 mg/dL (0.55-1.02) H 09/27/16 15:00 Creat Clearance w eGFR 6.59 (>60) 09/27/16 15:00 Random Glucose 125 mg/dL (74-106) H 09/27/16 15:00 Calcium 8.8 mg/dL (8.5-10.1) 09/27/16 15:00 Total Bilirubin 0.6 mg/dL (0.2-1.0) 09/27/16 15:00 AST 57 U/L (15-37) H 09/27/16 15:00 ALT 55 U/L (12-78) 09/27/16 15:00 Alkaline Phosphatase 178 U/L (45-117) H 09/27/16 15:00 Total Protein 7.3 g/dl (6.4-8.2) 09/27/16 15:00 Albumin 3.5 g/dl (3.4-5.0) 09/27/16 15:00 CARDIAC ENZYMES Creatine Kinase 83 IU/L (26-192) 09/27/16 15:00 Troponin I 0.56 ng/ml (0.00-0.05) H 09/27/16 15:00 Imaging: CXR:Since the prior study of 08/28/2016, again is a large heart with sclerotic knob and a persistent left-sided device with tip by the right upper mediastinum. There is no sign of infiltrate, failure or pneumothorax. The bones and soft tissues are intact. Impression : Left-sided device. Large heart. No acute chest pathology. CT abd/pelvis: Patient Name: Noelle Hernandez THIS IS A PRELIMINARY REPORT FROM [facility] IMAGES: [id number] EXAM DATE AND TIME: 2016-09-27 23:59:49.0 EXAM: CT ABDOMEN AND PELVIS WITH CONTRAST No bowel obstruction, colitis, diverticulitis, free fluid or free air. Normal appendix. No evidence of intussusception. Unremarkable pancreas. Atrophic kidneys with bilateral cysts. Cholelithiasis. Gallbladder wall thickening, possibly chronic. No gallbladder dilatation. 1.7 cm left adnexal calcification, probably ovarian. Stent right external iliac artery. Small right inguinal region hernia containing fat. Small right pleural effusion. Cardiomegaly. Electronic device lower left lateral chest wall. THIS DOCUMENT HAS BEEN ELECTRONICALLY SIGNED Ashley Fulton M.D. Active Medications Aspirin (Asa -) 81 mg PO DAILY OBED Budesonide/Formoterol Fumarate (Symbicort 160/4.5mcg -) 2 puff IH BID OBED Pantoprazole Sodium 40 mg/ (Sodium Chloride) 100 mls @ 200 mls/hr IVPB BID OBED Lorazepam (Ativan -) 1 mg PO DAILY PRN PRN Reason: ANXIETY Metoprolol Succinate (Toprol Xl -) 100 mg PO BID OBED Rosuvastatin Calcium (Crestor -) 5 mg PO HS OBED Sertraline HCl (Zoloft -) 50 mg PO DAILY OBED Sevelamer Carbonate (Renvela -) 800 mg PO TIDCM OBED ASSESSMENT/PLAN: 80 y/o F w/PMH of anxiety, anemia, hypothyroidism, HTN, HLD, A-fib on eliquis, systolic CHF, defibrillator, COPD (on oxygen at home), CAD s/p 3 stents, ESRD on dialysis MWF presents to ER w complaints of non-bloody diarrhea since yesterday and abdominal pain. Found to have red currant jelly stool. Admitted to tele due to AICD discharges. -Bright red blood per rectum / red currant jelly stool w/abd pain -CBC, PT/INR, Type and Screen stat ordered -CBC 12.4 to 11.5 s/p bloody BM, continue to monitor CBC -CT abd w/o contrast ordered -No bowel obstruction, colitis, diverticulitis, free fluid or free air. No evidence of intussusception. -f/u official read -Protonix IV 40 mg bid -GI consulted -FOBT +; NPO -Diarrhea w/ abd pain -C diff toxin and ag ordered; ova and parasite exam and stool culture ordered -CT abd w/o contrast ordered -No bowel obstruction, colitis, diverticulitis, free fluid or free air. No evidence of intussusception. -f/u official read. -FOBT +; NPO -Flagyl 500 mg IV q8h -pt with leukocytosis, may be due to GI infectious etiology -AICD malfunction / discharging -EP to follow AICD here (Dr. Neil) -cardiology consulted -elevated trops likely from AICD discharge -monitor and trend trops -pt with no active chest pain at this time -A-fib -eliquis held, c/w metoprolol xl 100 mg po bid (hold if HR < 60) -ESRD -Nephro consulted -on dialysis MWF; dialysis tomorrow -avoid nephrotoxic agents -No blood pressure cuffs or IV's on LUE -Anxiety -lorazepam 1 mg po qd prn for anxiety -sertraline 50 mg po qd -HLD -Rosuvastatin 5 mg po qhs -CAD -ASA 81 mg po qd -COPD -on oxygen at home, will continue with O2 supplementation to keep O2 sat >90 -c/w symbicort 2 puff ih bid -duo-nebs q6h prn for SOB or wheezing -DVT ppx -SCDs -FEN -No fluids for now; pt for dialysis tomorrow -Monitor electrolytes, for dialysis tomorrow -NPO for now -Dispo: -Admit to tele Visit type - Emergency Visit Emergency Visit: Yes ED Registration Date: 09/27/16 Care time: The patient presented to the Emergency Department on the above date and was hospitalized for further evaluation of their emergent condition. - New Patient This patient is new to me today: Yes Date on this admission: 09/28/16 - Critical Care Critical Care patient: No
[2016-09-27 22:18] VITALS: BMI 21.4
[2016-09-27 22:31] LABS: MCH 30.9 pg (25.7-33.7); MCHC 30.4 g/dl (32.0-36.0); MEAN CELL VOLUME 101.6 fl (80-96); PLATELET COUNT 270 K/MM3 (134-434); RDW 19.4 % (11.6-15.6); WHITE BLOOD COUNT 17.7 K/mm3 (4.0-10.0)
[2016-09-27 23:12] LABS: INR 1.99 (0.82-1.09); PROTHROMBIN TIME (PATIENT) 22.2 SEC (9.98-11.88)
[2016-09-27] MEDS ORDERED: ALBUTEROL SO4 2.5/IPRATROPIUM 0.5 INH SOL 3 ML VIAL.NEB. NEB PRN (23:40)
[2016-09-28] MEDS: METRONIDAZOLE 500 MG PREMIXED 100 ML IVPB SCH ×4 (00:30→17:19)
[2016-09-28] MEDS ORDERED: SEVELAMER HCL PO SCH (08:00)
[2016-09-28] MEDS: SEVELAMER CARBONATE 800 MG TAB (FP) PO SCH ×3 (08:00→17:18)
[2016-09-28 08:13] LABS: MCH 31.6 pg (25.7-33.7); MCHC 31.4 g/dl (32.0-36.0); MEAN CELL VOLUME 100.9 fl (80-96); MEAN PLT VOLUME 9.1 fl (7.5-11.1); PLATELET COUNT 267 K/MM3 (134-434); RDW 19.5 % (11.6-15.6); WHITE BLOOD COUNT 21.4 K/mm3 (4.0-10.0)
[2016-09-28] MEDS ORDERED: ACETAMINOPHEN 1000 MG/100 ML VIAL (NON FORMULARY) IVPB PRN (09:53)
[2016-09-28] MEDS ORDERED: cefTRIAXone 1 GM/50 ML BAG (PRE-DOCKED) IVPB SCH (10:00)
[2016-09-28] MEDS ORDERED: ASPIRIN 81 MG CHEWABLE TABLETS PO SCH (10:00)
[2016-09-28] MEDS ORDERED: SERTRALINE HCL 50 MG TABLET (FP) PO SCH (10:00)
[2016-09-28] MEDS ORDERED: PANTOPRAZOLE SODIUM 40 MG in SODIUM CHLORIDE 100 ML IVPB SCH (10:00)
[2016-09-28] MEDS: METOPROLOL SUCCINATE 100 MG TAB.SR.24H (FP) PO SCH (10:15)
[2016-09-28] MEDS: PANTOPRAZOLE SODIUM 100 ML IVPB SCH (10:18)
[2016-09-28] MEDS ORDERED: IBUPROFEN 800 MG/8 ML IJ IVPB PRN (10:21)
[2016-09-28 10:35] LABS: ANISOCYTOSIS 1+; PLATELET ESTIMATE ADEQUATE (NORMAL)
[2016-09-28] MEDS ORDERED: PT OWN MED DRAWER 7, Y5N ONE ×2 (10:51→23:53)
[2016-09-28] MEDS: BUDESONIDE/FORMETEROL FUMARATE 160/4.5 mcg INHALER IH SCH (10:56)
--- NOTE | 2016-09-28 11:34 | PN ---
Progress Note, Physician History of Present Illness: 80-year-old white female with PMHx of anxiety, anemia, hypothyroid, HTN, HLD, A.fib on eliquis, severe systolic CHF, defibrillator; COPD on home O2, CAD with stents 3, end-stage renal disease on hemodialysis (Wednesdays, Fridays), here with multiple complaints, including multiple episodes of nonbloody diarrhea since yesterday with some vague lower abdominal pain. Denies any nausea, vomiting, fever or chills. Also complaining of shortness of breath since yesterday. States her AICD fired while having a bowel movement this afternoon. No chest pain or diaphoresis. See exam Diarrheal illness x 24 hrs Hypotensive at triage but afebrile w/ benign abd -IVF -labs SOB w/ firing of AICD Sating 100% on RA w/ BP 90s/50s but alert w/ chest/lungs clear - Current Medication List Current Medications: Active Medications Albuterol/Ipratropium (Duoneb -) 1 amp NEB Q6H PRN PRN Reason: SHORTNESS OF BREATH Budesonide/Formoterol Fumarate (Symbicort 160/4.5mcg -) 2 puff IH BID [facility] Last Admin: 09/28/16 10:56 Dose: 2 puff Ceftriaxone Sodium (Rocephin 1gm Ivpb (Pre-Docked)) 1 gm IVPB DAILY [facility] PRN Reason: Protocol Pantoprazole Sodium (Protonix 40mg Ivpb (Pre-Docked)) 100 mls @ 200 mls/hr IVPB BID [facility] Last Admin: 09/28/16 10:18 Dose: 200 mls/hr Metronidazole (Flagyl 500mg Premixed Ivpb -) 100 mls @ 100 mls/hr IVPB Q8H-IV [facility] Last Admin: 09/28/16 01:49 Dose: Not Given Ibuprofen (Caldolor Injection -) 600 mg IVPB Q6H PRN PRN Reason: HEADACHE Last Admin: 09/28/16 10:56 Dose: 600 mg Lorazepam (Ativan -) 1 mg PO DAILY PRN PRN Reason: ANXIETY Metoprolol Succinate (Toprol Xl -) 100 mg PO BID [facility] Last Admin: 09/28/16 10:15 Dose: Not Given Rosuvastatin Calcium (Crestor -) 5 mg PO [facility] Sertraline HCl (Zoloft -) 50 mg PO DAILY [facility] Last Admin: 09/28/16 10:16 Dose: Not Given Sevelamer Carbonate (Renvela -) 800 mg PO TIDCM [facility] Last Admin: 09/28/16 08:00 Dose: Not Given - Objective Vital Signs: Vital Signs Temperature 97.8 F 09/28/16 05:09 Pulse Rate 93 H 09/28/16 05:09 Respiratory Rate 18 09/28/16 05:09 Blood Pressure 123/48 09/28/16 05:09 O2 Sat by Pulse Oximetry (%) 98 09/27/16 18:30 Eyes: Yes: WNL, Conjunctiva Clear, EOM Intact HENT: Yes: WNL, Atraumatic, Normocephalic Neck: Yes: WNL, Supple, Trachea Midline Cardiovascular: Yes: WNL, Regular Rate and Rhythm Respiratory: Yes: WNL, Regular, CTA Bilaterally Gastrointestinal: Yes: WNL, Normal Bowel Sounds Genitourinary: Yes: WNL Musculoskeletal: Yes: WNL Extremities: Yes: WNL Edema: No Integumentary: Yes: WNL Neurological: Yes: WNL, Alert, Oriented ...Motor Strength: WNL Psychiatric: Yes: WNL Labs: CBC, BMP 09/28/16 06:00 INR, PTT INR 1.99 (0.82-1.09) H 09/27/16 21:50 Laboratory Tests 09/27/16 09/27/16 09/27/16 14:29 15:00 15:00 WBC 14.4 H D RBC 3.90 Hgb 12.4 D Hct 40.2 D MCV 102.9 H MCHC 30.8 L RDW 20.2 H Plt Count 260 MPV 8.8 Neutrophils % 87.3 H Lymphocytes % 6.5 L D Monocytes % 5.7 Eosinophils % 0.2 Basophils % 0.3 Band Neutrophils Differential Comment Platelet Estimate Platelet Comment Anisocytosis INR PTT (Actin FS) Sodium 140 Potassium 5.2 H D Chloride 100 Carbon Dioxide 17 L D Anion Gap 23 H BUN 53 H D Creatinine 6.1 H Creat Clearance w eGFR 6.59 Random Glucose 125 H Calcium 8.8 Total Bilirubin 0.6 AST 57 H ALT 55 Alkaline Phosphatase 178 H Creatine Kinase 83 Troponin I 0.56 H B-Natriuretic Peptide Cancelled Cancelled Total Protein 7.3 Albumin 3.5 Stool Occult Blood Blood Type Antibody Screen 09/27/16 09/27/16 09/27/16 16:34 18:23 20:30 WBC RBC Hgb Hct MCV MCHC RDW Plt Count MPV Neutrophils % Lymphocytes % Monocytes % Eosinophils % Basophils % Band Neutrophils Differential Comment Platelet Estimate Platelet Comment Anisocytosis INR PTT (Actin FS) Sodium Potassium Chloride Carbon Dioxide Anion Gap BUN Creatinine Creat Clearance w eGFR Random Glucose Calcium Total Bilirubin AST ALT Alkaline Phosphatase Creatine Kinase Troponin I B-Natriuretic Peptide Cancelled 335145.8 H Total Protein Albumin Stool Occult Blood Positive Blood Type Antibody Screen 09/27/16 09/27/16 09/27/16 21:50 21:55 21:55 WBC 17.7 H RBC 3.72 Hgb 11.5 Hct 37.8 MCV 101.6 H MCHC 30.4 L RDW 19.4 H Plt Count 270 MPV 9.0 Neutrophils % Lymphocytes % Monocytes % Eosinophils % Basophils % Band Neutrophils Differential Comment Platelet Estimate Platelet Comment Anisocytosis INR 1.99 H PTT (Actin FS) 31.7 Sodium Potassium Chloride Carbon Dioxide Anion Gap BUN Creatinine Creat Clearance w eGFR Random Glucose Calcium Total Bilirubin AST ALT Alkaline Phosphatase Creatine Kinase Troponin I B-Natriuretic Peptide Total Protein Albumin Stool Occult Blood Blood Type Antibody Screen 09/27/16 09/28/16 09/28/16 21:55 06:00 06:00 WBC 21.4 H RBC 3.67 Hgb 11.6 Hct 37.0 MCV 100.9 H MCHC 31.4 L RDW 19.5 H Plt Count 267 MPV 9.1 Neutrophils % 84.0 H Lymphocytes % 3.0 L D Monocytes % 4.0 Eosinophils % 0.0 D Basophils % 0.0 Band Neutrophils 9.0 D Differential Comment Manual diff done Platelet Estimate Adequate Platelet Comment Few large plts Anisocytosis 1+ INR PTT (Actin FS) Sodium Cancelled Potassium Cancelled Chloride Cancelled Carbon Dioxide Cancelled Anion Gap Cancelled BUN Cancelled Creatinine Cancelled Creat Clearance w eGFR Cancelled Random Glucose Cancelled Calcium Cancelled Total Bilirubin Cancelled AST Cancelled ALT Cancelled Alkaline Phosphatase Cancelled Creatine Kinase Troponin I B-Natriuretic Peptide Total Protein Cancelled Albumin Cancelled Stool Occult Blood Blood Type A POSITIVE Antibody Screen Negative Assessment/Plan - Problems (1) Defibrillator discharge Assessment/Plan: inappropriate ICD discharge, despite modification of parameters 05/2016, when a similar event occurred. F/u on telemetry; d/w with Dr. Neil, EP - patient to be transferred to [facility] for ICD reprograming? removal ? reinplantatiion of percutaneus ICD. Code(s): Z45.02 - ENCNTR FOR ADJUST AND MGMT OF AUTOMATIC IMPLNTBL CARD DEFIB (2) Acute on chronic systolic and diastolic heart failure, NYHA class 3 Assessment/Plan: On beta blockers; Hydralazine + nitrate for CHF (problematic using ACEI or ARB due to renal dysfunction) when BP stabilizes (admitted with diarrhea and hypotension-->IV fluids). For hemodialysis per pipeline construction inspector. Code(s): I50.43 - ACUTE ON CHRONIC COMBINED SYSTOLIC AND DIASTOLIC HRT FAIL (3) Atrial fibrillation with tachycardic ventricular rate Assessment/Plan: on metoprolol ER and apixaban (as well as ASA, because of CAD). Code(s): I48.91 - UNSPECIFIED ATRIAL FIBRILLATION (4) COPD exacerbation Code(s): J44.1 - CHRONIC OBSTRUCTIVE PULMONARY DISEASE W (ACUTE) EXACERBATION (5) ESRD (end stage renal disease) on dialysis Assessment/Plan: K 5.2. hemodialysis per pipeline construction inspector. (6) HTN (hypertension) Code(s): I10 - ESSENTIAL (PRIMARY) HYPERTENSION Qualifiers: Hypertension type: essential hypertension Qualified Code(s): I10 - Essential (primary) hypertension (7) Hyperlipidemia Code(s): E78.5 - HYPERLIPIDEMIA, UNSPECIFIED (8) Palpitations Code(s): R00.2 - PALPITATIONS (9) Panic anxiety syndrome Code(s): F41.0 - PANIC DISORDER WITHOUT AGORAPHOBIA (10) CAD (coronary artery disease) Code(s): I25.10 - ATHSCL HEART DISEASE OF [place] CORONARY ARTERY W/O ANG PCTRS Qualifiers:
[2016-09-28 11:38] LABS: ANION GAP 24 (8-16); BILIRUBIN,TOTAL 0.6 mg/dL (0.2-1.0); CALCIUM 7.6 mg/dL (8.5-10.1); CO2 15 mmol/L (21-32); GLUCOSE,RANDOM 70 mg/dL (74-106); SGOT/AST 392 U/L (15-37); SGPT/ALT 233 U/L (12-78); TOT PROT 5.9 g/dl (6.4-8.2)
[2016-09-28 11:39] LABS: ALK PHOS 164 U/L (45-117)
--- NOTE | 2016-09-28 11:51 | PN ---
Progress Note, Physician Chief Complaint: ID Full note dictated Admitted with nonbloody diarrhea vague abd discomfort WBC climbing since admission but no fever or chills Lives with home independent Dialysis HE is not sick CT abd no contrast Recent dental work week ago had propylactic antibiotic - Current Medication List Current Medications: Active Medications Albuterol/Ipratropium (Duoneb -) 1 amp NEB Q6H PRN PRN Reason: SHORTNESS OF BREATH Budesonide/Formoterol Fumarate (Symbicort 160/4.5mcg -) 2 puff IH BID COUNTS INCLUDE 234 BEDS AT THE [facility] Last Admin: 09/28/16 10:56 Dose: 2 puff Ceftriaxone Sodium (Rocephin 1gm Ivpb (Pre-Docked)) 1 gm IVPB DAILY OBED PRN Reason: Protocol Pantoprazole Sodium (Protonix 40mg Ivpb (Pre-Docked)) 100 mls @ 200 mls/hr IVPB BID COUNTS INCLUDE 234 BEDS AT THE [facility] Last Admin: 09/28/16 10:18 Dose: 200 mls/hr Metronidazole (Flagyl 500mg Premixed Ivpb -) 100 mls @ 100 mls/hr IVPB Q8H-IV COUNTS INCLUDE 234 BEDS AT THE [facility] Last Admin: 09/28/16 01:49 Dose: Not Given Ibuprofen (Caldolor Injection -) 600 mg IVPB Q6H PRN PRN Reason: HEADACHE Last Admin: 09/28/16 10:56 Dose: 600 mg Lorazepam (Ativan -) 1 mg PO DAILY PRN PRN Reason: ANXIETY Metoprolol Succinate (Toprol Xl -) 100 mg PO BID COUNTS INCLUDE 234 BEDS AT THE [facility] Last Admin: 09/28/16 10:15 Dose: Not Given Rosuvastatin Calcium (Crestor -) 5 mg PO [facility] Sertraline HCl (Zoloft -) 50 mg PO DAILY COUNTS INCLUDE 234 BEDS AT THE [facility] Last Admin: 09/28/16 10:16 Dose: Not Given Sevelamer Carbonate (Renvela -) 800 mg PO TIDCM COUNTS INCLUDE 234 BEDS AT THE [facility] Last Admin: 09/28/16 08:00 Dose: Not Given - Objective Vital Signs: Vital Signs Temperature 97.8 F 09/28/16 05:09 Pulse Rate 93 H 09/28/16 05:09 Respiratory Rate 18 09/28/16 05:09 Blood Pressure 123/48 09/28/16 05:09 O2 Sat by Pulse Oximetry (%) 98 09/27/16 18:30 Gastrointestinal: Yes: Soft, Tenderness. No: Tenderness, Rebound Labs: CBC, BMP 09/28/16 06:00 INR, PTT INR 1.99 (0.82-1.09) H 09/27/16 21:50 Problem List - Problems (2) Diverticulitis Code(s): K57.92 - DVTRCLI OF INTEST, PART UNSP, W/O PERF OR ABSCESS W/O BLEED Assessment/Plan Laboratory Tests 09/27/16 09/27/16 09/27/16 15:00 15:00 21:55 WBC 14.4 H D 17.7 H Hgb Hct Plt Count AST 57 H ALT 55 Alkaline Phosphatase 178 H 09/28/16 06:00 WBC 21.4 H Hgb 11.6 Hct 37.0 Plt Count 267 AST ALT Alkaline Phosphatase Assessment Acute diarrhea and WBC elevation ? Diverticulitis vs enterocolitis includeds enterics and C difficile Lastly sepsis related Plan Stool for C diff and enterics Vancomycin 1 dose Ceftriaxone and met[address]idazole CT scan with contrast oral [place] transfer for ICD eval considered Eder OLSEN
[2016-09-28] MEDS ORDERED: VANCOMYCIN 1,000 MG in DEXTROSE 5%-WATER - 500 ML IVPB ONE (12:05)
--- NOTE | 2016-09-28 13:14 | PN ---
Progress Note, Physician History of Present Illness: Pt seen and examined at bedside. She is awake and alert. She complains of abdominal pain and loose stool. - Current Medication List Current Medications: Active Medications Albuterol/Ipratropium (Duoneb -) 1 amp NEB Q6H PRN PRN Reason: SHORTNESS OF BREATH Budesonide/Formoterol Fumarate (Symbicort 160/4.5mcg -) 2 puff IH BID [facility] Last Admin: 09/28/16 10:56 Dose: 2 puff Ceftriaxone Sodium (Rocephin 1gm Ivpb (Pre-Docked)) 1 gm IVPB DAILY OBED PRN Reason: Protocol Pantoprazole Sodium (Protonix 40mg Ivpb (Pre-Docked)) 100 mls @ 200 mls/hr IVPB BID [facility] Last Admin: 09/28/16 10:18 Dose: 200 mls/hr Metronidazole (Flagyl 500mg Premixed Ivpb -) 100 mls @ 100 mls/hr IVPB Q8H-IV [facility] Last Admin: 09/28/16 11:46 Dose: 100 mls/hr Vancomycin HCl 1,000 mg/ (Dextrose) 500 mls @ 250 mls/hr IVPB ONCE ONE PRN Reason: Protocol Stop: 09/28/16 14:04 Ibuprofen (Caldolor Injection -) 600 mg IVPB Q6H PRN PRN Reason: HEADACHE Last Admin: 09/28/16 10:56 Dose: 600 mg Lorazepam (Ativan -) 1 mg PO DAILY PRN PRN Reason: ANXIETY Metoprolol Succinate (Toprol Xl -) 100 mg PO BID [facility] Last Admin: 09/28/16 10:15 Dose: Not Given Rosuvastatin Calcium (Crestor -) 5 mg PO [facility] Sertraline HCl (Zoloft -) 50 mg PO DAILY [facility] Last Admin: 09/28/16 10:16 Dose: Not Given Sevelamer Carbonate (Renvela -) 800 mg PO TIDCM [facility] Last Admin: 09/28/16 12:00 Dose: Not Given - Objective Vital Signs: Vital Signs Temperature 97.8 F 09/28/16 05:09 Pulse Rate 93 H 09/28/16 05:09 Respiratory Rate 18 09/28/16 05:09 Blood Pressure 123/48 09/28/16 05:09 O2 Sat by Pulse Oximetry (%) 98 09/27/16 18:30 Constitutional: Yes: Anxious Eyes: Yes: Conjunctiva Clear HENT: Yes: Atraumatic Neck: Yes: Supple Cardiovascular: Yes: Pulse Irregular, S1, S2, Other Respiratory: Yes: On Nasal O2, Wheezes Gastrointestinal: Yes: Tenderness Genitourinary: Yes: WNL Musculoskeletal: Yes: WNL Edema: No Neurological: Yes: Oriented Psychiatric: Yes: Oriented Labs: CBC, BMP 09/28/16 06:00 09/28/16 10:35 INR, PTT INR 1.99 (0.82-1.09) H 09/27/16 21:50 Problem List - Problems (1) Defibrillator discharge Code(s): Z45.02 - ENCNTR FOR ADJUST AND MGMT OF AUTOMATIC IMPLNTBL CARD DEFIB (2) Anxiety Code(s): F41.9 - ANXIETY DISORDER, UNSPECIFIED (3) CHF (congestive heart failure) Code(s): I50.9 - HEART FAILURE, UNSPECIFIED Qualifiers: Congestive heart failure type: unspecified congestive heart failure type Congestive heart failure chronicity: unspecified congestive heart failure chronicity Qualified Code(s): I50.9 - Heart failure, unspecified (4) COPD exacerbation Code(s): J44.1 - CHRONIC OBSTRUCTIVE PULMONARY DISEASE W (ACUTE) EXACERBATION Assessment/Plan Current Medications Generic Name Dose Route Start Last Admin Trade Name Freq PRN Reason Stop Dose Admin Albuterol/Ipratropium 1 amp 09/27/16 23:40 Duoneb - NEB Q6H PRN SHORTNESS OF BREATH Budesonide/Formoterol Fumarate 2 puff 09/28/16 10:00 09/28/16 10:56 Symbicort 160/4.5mcg - IH 2 puff BID OBED Administration Ceftriaxone Sodium 1 gm 09/28/16 10:00 Rocephin 1gm Ivpb (Pre-Docked) IVPB DAILY OBED Protocol Pantoprazole Sodium 100 mls @ 200 mls/hr 09/27/16 23:29 09/28/16 10:18 Protonix 40mg Ivpb (Pre-Docked) IVPB 200 mls/hr BID OBED Administration Metronidazole 100 mls @ 100 mls/hr 09/27/16 23:45 09/28/16 11:46 Flagyl 500mg Premixed Ivpb - IVPB 100 mls/hr Q8H-IV OBED Administration Vancomycin HCl 1,000 mg/ 500 mls @ 250 mls/hr 09/28/16 12:05 Dextrose IVPB 09/28/16 14:04 ONCE ONE Protocol Ibuprofen 600 mg 09/28/16 10:21 09/28/16 10:56 Caldolor Injection - IVPB 600 mg Q6H PRN Administration HEADACHE Lorazepam 1 mg 09/27/16 22:16 Ativan - PO DAILY PRN ANXIETY Metoprolol Succinate 100 mg 09/28/16 10:00 09/28/16 10:15 Toprol Xl - PO Not Given BID OBED Rosuvastatin Calcium 5 mg 09/28/16 22:00 Crestor - PO HS OBED Sertraline HCl 50 mg 09/28/16 10:00 09/28/16 10:16 Zoloft - PO Not Given DAILY OBED Sevelamer Carbonate 800 mg 09/28/16 08:00 09/28/16 12:00 Renvela - PO Not Given TIDCM OBED Impression 1. ESRD 2. anxiety 3. HTN 4. CHF 5. pleural effusion 6. hypothyroidism 7. hyperlipidemia 8. MVP 9. a-fib 10. AICD malfunction Plan - [facility] - discussed with ID, repeat ct scan with PO contrast - cardio input appreciated, pt to be transferred to [place] for AID evaluation - cont current meds - will dialyze on tele Dr Zuluaga
[2016-09-28] MEDS ORDERED: VANCOMYCIN 1 GRAM (PRE-DOCKED) 250 ML IVPB ONE (13:30)
[2016-09-28] MEDS ORDERED: HEPARIN NA (PORCINE) 5,000 UNITS/ML 1ML VIAL IVPUSH PRN ×2 (14:13)
[2016-09-28] MEDS ORDERED: HEPARIN INFUSION - 500 ML IVPB SCH (14:15)
--- NOTE | 2016-09-28 16:47 | PN ---
Physical Exam: SUBJECTIVE: Patient seen and examined at bedside. No overnight events. No new complaints. Abdominal pain improved. Denies CP, FERREIRA, SOB, palpitations, N/V. OBJECTIVE: Vital Signs Period Temp Pulse Resp BP Sys/Lynch Pulse Ox Last 24 Hr 97.4 F-97.8 F 87-101 16-20 104-123/48-80 97-100 GENERAL: AAOx3, NAD. HEAD: NC/AT EYES: PERRL, EOMI, sclera anicteric, conjunctiva clear. No ptosis. ENT: moist mucous membranes. NECK: Supple, No JVD LUNGS: CTAB, no wheezing or rales. HEART:RRR , S1 and S1 ABDOMEN: Soft, mild epigastric tenderness, nondistended, hypoactive bowel sounds, no guarding, no rebound, no hepatosplenomegaly, no masses. EXTREMITIES: 2+ pulses, warm, well-perfused, no edema. NEUROLOGICAL: Cranial nerves II through XII grossly intact. Normal speech, gait not observed. Laboratory Results - last 24 hr 09/27/16 09/27/16 09/27/16 18:23 20:30 21:50 WBC RBC Hgb Hct MCV MCHC RDW Plt Count MPV Neutrophils % Lymphocytes % Monocytes % Eosinophils % Basophils % Band Neutrophils Differential Comment Platelet Estimate Platelet Comment Anisocytosis INR 1.99 H PTT (Actin FS) Sodium Potassium Chloride Carbon Dioxide Anion Gap BUN Creatinine Creat Clearance w eGFR Random Glucose Calcium Total Bilirubin AST ALT Alkaline Phosphatase B-Natriuretic Peptide 772999.8 H Total Protein Albumin Stool Occult Blood Positive Blood Type Antibody Screen 09/27/16 09/27/16 09/27/16 21:55 21:55 21:55 WBC 17.7 H RBC 3.72 Hgb 11.5 Hct 37.8 MCV 101.6 H MCHC 30.4 L RDW 19.4 H Plt Count 270 MPV 9.0 Neutrophils % Lymphocytes % Monocytes % Eosinophils % Basophils % Band Neutrophils Differential Comment Platelet Estimate Platelet Comment Anisocytosis INR PTT (Actin FS) 31.7 Sodium Potassium Chloride Carbon Dioxide Anion Gap BUN Creatinine Creat Clearance w eGFR Random Glucose Calcium Total Bilirubin AST ALT Alkaline Phosphatase B-Natriuretic Peptide Total Protein Albumin Stool Occult Blood Blood Type A POSITIVE Antibody Screen Negative 09/28/16 09/28/16 09/28/16 06:00 06:00 10:35 WBC 21.4 H RBC 3.67 Hgb 11.6 Hct 37.0 MCV 100.9 H MCHC 31.4 L RDW 19.5 H Plt Count 267 MPV 9.1 Neutrophils % 84.0 H Lymphocytes % 3.0 L D Monocytes % 4.0 Eosinophils % 0.0 D Basophils % 0.0 Band Neutrophils 9.0 D Differential Comment Manual diff done Platelet Estimate Adequate Platelet Comment Few large plts Anisocytosis 1+ INR PTT (Actin FS) Sodium Cancelled 142 Potassium Cancelled 4.3 Chloride Cancelled 103 Carbon Dioxide Cancelled 15 L Anion Gap Cancelled 24 H BUN Cancelled 76 H D Creatinine Cancelled 7.0 H Creat Clearance w eGFR Cancelled 5.62 Random Glucose Cancelled 70 L D Calcium Cancelled 7.6 L Total Bilirubin Cancelled 0.6 AST Cancelled 392 H D ALT Cancelled 233 H D Alkaline Phosphatase Cancelled 164 H B-Natriuretic Peptide Total Protein Cancelled 5.9 L Albumin Cancelled 3.0 L Stool Occult Blood Blood Type Antibody Screen Active Medications Generic Name Dose Route Start Last Admin Trade Name Freq PRN Reason Stop Dose Admin Albuterol/Ipratropium 1 amp 09/27/16 23:40 Duoneb - NEB Q6H PRN SHORTNESS OF BREATH Budesonide/Formoterol Fumarate 2 puff 09/28/16 10:00 09/28/16 10:56 Symbicort 160/4.5mcg - IH 2 puff BID OBED Administration Ceftriaxone Sodium 1 gm 09/28/16 10:00 09/28/16 13:30 Rocephin 1gm Ivpb (Pre-Docked) IVPB 1 gm DAILY OBED Administration Protocol Heparin Sodium (Porcine) 1,000 unit 09/28/16 14:13 Heparin - IVPUSH PRN PRN Heparin Heparin Sodium (Porcine) 5,000 unit 09/28/16 14:13 Heparin - IVPUSH PRN PRN Heparin Pantoprazole Sodium 100 mls @ 200 mls/hr 09/27/16 23:29 09/28/16 10:18 Protonix 40mg Ivpb (Pre-Docked) IVPB 200 mls/hr BID OBED Administration Metronidazole 100 mls @ 100 mls/hr 09/27/16 23:45 09/28/16 11:46 Flagyl 500mg Premixed Ivpb - IVPB 100 mls/hr Q8H-IV OBED Administration Heparin Sodium/Dextrose 500 mls @ 16 mls/hr 09/28/16 14:15 09/28/16 16:06 Heparin Infusion - IVPB 16 mls/hr TITR OBED Administration Protocol 800 UNITS/HR Ibuprofen 600 mg 09/28/16 10:21 09/28/16 10:56 Caldolor Injection - IVPB 600 mg Q6H PRN Administration HEADACHE Lorazepam 1 mg 09/27/16 22:16 09/28/16 16:06 Ativan - PO 1 mg DAILY PRN Administration ANXIETY Metoprolol Succinate 100 mg 09/28/16 10:00 09/28/16 10:15 Toprol Xl - PO Not Given BID OBED Rosuvastatin Calcium 5 mg 09/28/16 22:00 Crestor - PO HS OBED Sertraline HCl 50 mg 09/28/16 10:00 09/28/16 10:16 Zoloft - PO Not Given DAILY OBED Sevelamer Carbonate 800 mg 09/28/16 08:00 09/28/16 12:00 Renvela - PO Not Given TIDCM OBED ASSESSMENT/PLAN: 80-year-old female, history of anxiety, anemia, hypothyroid, HTN, HLD, A.fib on eliquis, severe systolic CHF, defibrillator, COPD on home O2, CAD with stents 3, end-stage renal disease on hemodialysis (Wednesdays, Fridays) , who presents with diarrhea and red currant jelly stool and firing of icd being admitted to tele. Problem List - Problems (1) Diarrhea Assessment/Plan: * CT abdomen with oral contrast shows no acute pathology. * C-diff pending. * O&P and stool cultures pending. * Vanco given x1 * Will continue with Ceftriaxone 1gm daily and Flagyl 500mg IV Q8H * ID consult appreciated. (2) Bright red blood per rectum Assessment/Plan: * Possible ischemic colitis. * GI consult appreciated. * No procedures planned. * Eliquis held * Will continue Abx. and IVF. * Coags/ type and screen. * PPI * trend H/H * normal transfusion thresholds. (3) Defibrillator discharge Assessment/Plan: * Cardio consult appreciated. * Will consider transfer to [facility] for ICD management. * Continue Tele monitoring. (4) A-fib Assessment/Plan: * Currently rate controlled. * AC held 2/2 rectal bleed. * Continue Metoprolol (5) ESRD (end stage renal disease) on dialysis Assessment/Plan: * Dialysis MWF * Nephrology consult. * Dialyzed today. (6) COPD (chronic obstructive pulmonary disease) Assessment/Plan: * On home O2 * continue supplemental O2 * Continue Symbicort * Duonebs PRN. (7) Chronic systolic (congestive) heart failure Assessment/Plan: * EP consult * possible transfer to [facility]. * trend troponin * continue Metoprolol 100mg PO BID and Crestor 5mg PO HS (8) Anxiety Assessment/Plan: * Continue Ativan PRN * Continue Zoloft 50mg PO daily Visit type - Emergency Visit Emergency Visit: Yes ED Registration Date: 09/27/16 Care time: The patient presented to the Emergency Department on the above date and was hospitalized for further evaluation of their emergent condition. - New Patient This patient is new to me today: Yes Date on this admission: 09/28/16 - Critical Care Critical Care patient: No
--- NOTE | 2016-09-28 19:38 | CONS ---
DATE OF CONSULTATION: HISTORY: This is an 80-year-old female with a history of atrial fibrillation, end-stage renal disease, and a defibrillator who was brought with chief complaints of nonbloody, frequent stools at home following dialysis on Wednesday, 3 days ago. She had no fever at the time of admission and describes vague abdominal discomfort. She apparently had a CT scan done without any contrast, which was essentially normal. No acute intra-abdominal pathology was recognized. Since admission, her white count has been increasing from 14,000 two days ago to today, 21,000. She remains afebrile and denies any chills. She has continued diarrhea and denies having any travel history. She lives at home with her who is not ill with any gastrointestinal illness. She denies any chills. She does have vague, generalized abdominal discomfort. A stool has been sent for Clostridium difficile and for enteric pathogens earlier today. Blood cultures were ordered by Dr. Haas. PAST MEDICAL HISTORY: As noted above. CURRENT MEDICATIONS: Include Symbicort, Zoloft, Ativan, DuoNeb, Toprol, Crestor , Protonix. ALLERGIES: None known. SOCIAL HISTORY: Lives at home with her . Maintains an independent lifestyle. Former smoker. Gave this up 2 years ago. Denies any history of alcohol or drug abuse. FAMILY HISTORY: Reviewed and noncontributory. REVIEW OF SYSTEMS: Respiratory: No cough or shortness of breath. Cardiac: No chest pain, palpitations. Gastrointestinal: Abdominal pain and diarrhea as noted. Genitourinary: End-stage renal disease. Neuromuscular: No headaches, seizures, joint pains. PHYSICAL EXAMINATION: General: She is an elderly woman in no acute distress. Vital Signs: Temperature 97.8, pulse 93, blood pressure 123/48, respirations 18. Neck: Supple without adenopathy. Lungs: Clear to percussion and auscultation. Heart: S1, S2. Regular rhythm without audible murmur. Abdomen: Soft with tenderness noted in the lower quadrants. No guarding or rebound. Positive bowel sounds. No abdominal distention. Extremities: No clubbing, cyanosis, or edema. AV graft in the left arm. DIAGNOSTIC DATA: White count 21.4, hemoglobin 11.6, platelets 267, 84% polys, 3 lymphocytes, 4 monocytes, and 9 bands. Chemistries: AST 392, ALT 233, alkaline phosphatase 164. Urinalysis not currently available. CT scan of the abdomen and pelvis reviewed in its entire report shows a contracted gallbladder with some gallstones seen. Cardiomegaly and a small right pleural effusion. ASSESSMENT: An 80-year-old female with end-stage renal disease who presents with generalized abdominal discomfort, pain, and nonbloody diarrhea with a white count going up. The differential diagnosis would include an acute intra-abdominal process, probably acute diverticulitis versus enterocolitis. Her CT scan apparently was done without any contrast. She has gallstones and elevated liver enzymes, but her abdominal pain does not seem localized enough to be related to acute cholecystitis. According to Cardiology notes, she is to be transferred to [place] for reprogramming or possibly removal of the percutaneous ICD as per Cardiology. She should be empirically treated for sepsis including intra-abdominal sepsis and Clostridium difficile with a combination of a dose of vancomycin, ceftriaxone, and metronidazole. Two sets of blood cultures will be obtained. Stool for Clostridium difficile toxin and other enteric pathogens to be obtained and consideration of a surgical consultation with repeat CT imaging with oral contrast.Surgical consult should be obtained. BINDU RETANA M.D. [id number] MTDD
--- NOTE | 2016-09-28 20:10 | CONSULT ---
- Consultation REQUESTING PROVIDER: Davis CONSULT REQUEST: We have been asked to surgically evaluate this patient for abdominal discomfort PCP:Rob Cannon HISTORY OF PRESENT ILLNESS: 80 y/o female presented abdominal discomfort and diarrhea of sudden onset 2-3 days ago; she came to the ER for evaluation; she had oral antibiotics for a dental procedure prior to this; she has NOC; she states she is improved since admission w/u to date has been reviewed; she is going to be xferred to [place] for issues related to her AICD; she has had an ex-lap in the past for a bowel perforation from a foreign body. She has # medical co-morbid conditiond. PMHx: reviewed PSHx: as above Home Medications Medication Instructions Recorded Aspirin [ASA -] 81 mg PO DAILY 09/19/15 Apixaban [Eliquis] 2.5 mg PO BID 11/26/15 Lorazepam 1 mg PO DAILY PRN 02/17/16 Pantoprazole Sodium [Protonix] 40 mg PO DAILY 02/17/16 Rosuvastatin Calcium [Crestor] 5 mg PO HS 02/17/16 Sevelamer HCl [Renagel] 800 mg PO TIDCM 02/17/16 Sertraline HCl [Zoloft -] 50 mg PO DAILY 08/28/16 Budesonide/Formeterol Fumarate 2 inh PO BID 09/03/16 [SYMBICORT 160/4.5mcg -] Docusate Sodium [Colace -] 300 mg PO HS #90 tab 09/03/16 Metoprolol Succinate [Toprol XL -] 100 mg PO BID #60 tab 09/03/16 Polyethylene Glycol 3350 [Miralax 17 gm PO BID bottle 09/03/16 119 gm Btl -] Allergies Allergy/AdvReac Type Severity Reaction Status Date / Time No Known Allergies Allergy Verified 09/27/16 13:37 PHYSICAL EXAM: GENERAL: Awake, alert, and fully oriented, in no acute distress. HEAD: Normal with some facila ecchymoses. EYES: sclera anicteric, conjunctiva clear. NECK: Normal ROM, supple without lymphadenopathy, JVD, or masses. ABDOMEN: Soft, nontender, not distended, normoactive bowel sounds, no guarding, no rebound, no masses. No organomegaly. Healed surgical scar; no hernias. MUSCULOSKELETAL: Normal ROM at all joints. No bony deformities or tenderness. No CVA tenderness. UPPER EXTREMITIES: 2+ pulses, warm, well-perfused. No cyanosis. Cap refill <2 seconds. No peripheral edema. LOWER EXTREMITIES: 2+ pulses, warm, well-perfused. No calf tenderness. No peripheral edema. NEUROLOGICAL: Normal speech, gait not observed. PSYCH: Cooperative. Good eye contact. Appropriate mood and affect. SKIN: Warm, dry, normal turgor, no rashes or lesions noted. Vital Signs Temperature 97.9 F 09/28/16 18:35 Pulse Rate 84 09/28/16 18:35 Respiratory Rate 18 09/28/16 18:35 Blood Pressure 111/48 09/28/16 18:35 O2 Sat by Pulse Oximetry (%) 100 09/28/16 09:00 Lab Results WBC 21.4 K/mm3 (4.0-10.0) H 09/28/16 06:00 RBC 3.67 M/mm3 (3.60-5.2) 09/28/16 06:00 Hgb 11.6 GM/dL (10.7-15.3) 09/28/16 06:00 Hct 37.0 % (32.4-45.2) 09/28/16 06:00 MCV 100.9 fl (80-96) H 09/28/16 06:00 MCHC 31.4 g/dl (32.0-36.0) L 09/28/16 06:00 RDW 19.5 % (11.6-15.6) H 09/28/16 06:00 Plt Count 267 K/MM3 (134-434) 09/28/16 06:00 Sodium 142 mmol/L (136-145) 09/28/16 10:35 Potassium 4.3 mmol/L (3.5-5.1) 09/28/16 10:35 Chloride 103 mmol/L (98-107) 09/28/16 10:35 Carbon Dioxide 15 mmol/L (21-32) L 09/28/16 10:35 Anion Gap 24 (8-16) H 09/28/16 10:35 BUN 76 mg/dL (7-18) H D 09/28/16 10:35 Creatinine 7.0 mg/dL (0.55-1.02) H 09/28/16 10:35 Random Glucose 70 mg/dL (74-106) L D 09/28/16 10:35 Calcium 7.6 mg/dL (8.5-10.1) L 09/28/16 10:35 Blood Type A POSITIVE 09/27/16 21:55 Antibody Screen Negative 09/27/16 21:55 INR 1.99 (0.82-1.09) H 09/27/16 21:50 Imaging/labs reviewed IMP: No evidence of an acute surgical abdomen requiring surgical intervention at this time; orogin of her complaints are most likely related to non surgical issues; colitis etc. r/o C. diff colitis; she has no evidence of acute cholecystitis nor diverticulitis. PLAN: As per hospitalist and other consultants; will f/u Ghulam Gonsalves MD FACS Visit type - Case Type Case Type: ED Admission - Emergency Emergency Visit: Yes ED Registration Date: 09/27/16 Care time: The patient presented to the Emergency Department on the above date and was hospitalized for further evaluation of their emergent condition. - New patient This patient is new to me today: Yes Date on this admission: 09/28/16 - Critical Care Critical Care patient: No
[2016-09-28 20:31] VITALS: TEMP 97.6
--- NOTE | 2016-09-28 20:54 | CON.GI ---
Consult Consult Specialty:: GI Referred by:: Dr Cannon Reason for Consultation:: Rectal bleeding - History of Present Illness Chief Complaint: abdominal pain History of Present Illness: 80 F with h/o ESRD on HD, PMHx of anxiety, anemia, hypothyroid, HTN, HLD, A.fib AC, O2 dependent COPD admitted initially for a few days of diarrhea and lower abdominal pain. Since admission nurse states she has witnessed 2 episodes of "currant-jelly stool" associated with severe abdominal pain. At this time, she is being dialyzed and has no pain. Earlier, her AICD fired while having a bowel movement. She is in the process of being transferred to have that problem evaluated. - History Source History Provided By: Patient, Medical Record Limitations to Obtaining History: Clinical Condition - Past Medical History Cardio/Vascular: Yes: AFIB, CAD, CHF, HTN, DC, Hyperlipdemia Pulmonary: Yes: COPD Gastrointestinal: Yes: GERD Renal/: Yes: Renal Failure (on HD), Hemodialysis ...: No Psych: Yes: Anxiety, Depression Endocrine: Yes: Hypothyroidism - Past Surgical History Past Surgical History: Yes: AV Fistula/Graft, Stent - Alcohol/Substance Use Hx Alcohol Use: No History of Substance Use: reports: None - Smoking History Smoking history: Former smoker Have you smoked in the past 12 months: No Aproximately how many cigarettes per day: 0 If you are a former smoker, when did you quit?: 2YRS - Social History Usual Living Arrangement: With Significant Other ADL: Independent History of Recent Travel: No Home Medications - Allergies Allergies/Adverse Reactions: Allergies Allergy/AdvReac Type Severity Reaction Status Date / Time No Known Allergies Allergy Verified 09/27/16 13:37 - Home Medications Home Medications: Ambulatory Orders Aspirin [ASA -] 81 mg PO DAILY 09/19/15 Apixaban [Eliquis] 2.5 mg PO BID 11/26/15 Lorazepam 1 mg PO DAILY PRN 02/17/16 Pantoprazole Sodium [Protonix] 40 mg PO DAILY 02/17/16 Rosuvastatin Calcium [Crestor] 5 mg PO HS 02/17/16 Sevelamer HCl [Renagel] 800 mg PO TIDCM 02/17/16 Sertraline HCl [Zoloft -] 50 mg PO DAILY 08/28/16 Budesonide/Formeterol Fumarate [SYMBICORT 160/4.5mcg -] 2 inh PO BID 09/03/16 Docusate Sodium [Colace -] 300 mg PO HS #90 tab 09/03/16 Metoprolol Succinate [Toprol XL -] 100 mg PO BID #60 tab 09/03/16 Polyethylene Glycol 3350 [Miralax 119 gm Btl -] 17 gm PO BID bottle 09/03/16 Physical Exam-GI Vital Signs: Vital Signs Temperature 97.6 F 09/28/16 19:50 Pulse Rate 79 09/28/16 19:50 Respiratory Rate 18 09/28/16 19:50 Blood Pressure 110/43 09/28/16 19:50 O2 Sat by Pulse Oximetry (%) 99 09/28/16 19:50 Constitutional: Yes: Well Nourished, Calm HENT: Yes: Normocephalic Cardiovascular: Yes: Regular Rate and Rhythm Respiratory: Yes: CTA Bilaterally ...Auscultate: Yes: Hypoactive Bowel Sounds ...Palpate: Yes: Soft, Tenderness (epigastric and RLQ) Labs: CBC, BMP 09/28/16 06:00 09/28/16 10:35 INR, PTT INR 1.99 (0.82-1.09) H 09/27/16 21:50 Hepatic Panel Total Bilirubin 0.6 mg/dL (0.2-1.0) 09/28/16 10:35 AST 392 U/L (15-37) H D 09/28/16 10:35 ALT 233 U/L (12-78) H D 09/28/16 10:35 Alkaline Phosphatase 164 U/L (45-117) H 09/28/16 10:35 Albumin 3.0 g/dl (3.4-5.0) L 09/28/16 10:35 Imaging - Results Cat Scan: Report Reviewed (bowel unremarkable) Assessment/Plan Patient with risk factors for vascular disease. Possible ischemic colitis Not a candidate for procedures Conservative management-IV AB Rx and gentle IVF CT shows no bowel pathology and symptoms have resolved Expect resolution Increased LFTs possibly secondary to low-flow state Stop Ibuprofen
--- NOTE | 2016-09-28 21:11 | PN ---
Teaching Attending Note Name of Resident: Aneudy Howell ATTENDING PHYSICIAN STATEMENT I saw and evaluated the patient. I reviewed the resident's note and discussed the case with the resident. I agree with the resident's findings and plan as documented. SUBJECTIVE: Patient is having diarrhea. OBJECTIVE: Vital Signs Temperature 97.6 F 09/28/16 19:50 Pulse Rate 79 09/28/16 19:50 Respiratory Rate 18 09/28/16 19:50 Blood Pressure 110/43 09/28/16 19:50 O2 Sat by Pulse Oximetry (%) 99 09/28/16 19:50 CBCD WBC 21.4 K/mm3 (4.0-10.0) H 09/28/16 06:00 RBC 3.67 M/mm3 (3.60-5.2) 09/28/16 06:00 Hgb 11.6 GM/dL (10.7-15.3) 09/28/16 06:00 Hct 37.0 % (32.4-45.2) 09/28/16 06:00 MCV 100.9 fl (80-96) H 09/28/16 06:00 MCHC 31.4 g/dl (32.0-36.0) L 09/28/16 06:00 RDW 19.5 % (11.6-15.6) H 09/28/16 06:00 Plt Count 267 K/MM3 (134-434) 09/28/16 06:00 MPV 9.1 fl (7.5-11.1) 09/28/16 06:00 CMP Sodium 142 mmol/L (136-145) 09/28/16 10:35 Potassium 4.3 mmol/L (3.5-5.1) 09/28/16 10:35 Chloride 103 mmol/L (98-107) 09/28/16 10:35 Carbon Dioxide 15 mmol/L (21-32) L 09/28/16 10:35 Anion Gap 24 (8-16) H 09/28/16 10:35 BUN 76 mg/dL (7-18) H D 09/28/16 10:35 Creatinine 7.0 mg/dL (0.55-1.02) H 09/28/16 10:35 Creat Clearance w eGFR 5.62 (>60) 09/28/16 10:35 Random Glucose 70 mg/dL (74-106) L D 09/28/16 10:35 Calcium 7.6 mg/dL (8.5-10.1) L 09/28/16 10:35 Total Bilirubin 0.6 mg/dL (0.2-1.0) 09/28/16 10:35 AST 392 U/L (15-37) H D 09/28/16 10:35 ALT 233 U/L (12-78) H D 09/28/16 10:35 Alkaline Phosphatase 164 U/L (45-117) H 09/28/16 10:35 Total Protein 5.9 g/dl (6.4-8.2) L 09/28/16 10:35 Albumin 3.0 g/dl (3.4-5.0) L 09/28/16 10:35 CARDIAC ENZYMES Creatine Kinase 83 IU/L (26-192) 09/27/16 15:00 Troponin I 0.56 ng/ml (0.00-0.05) H 09/27/16 15:00 Current Medications Generic Name Dose Route Start Last Admin Trade Name Freq PRN Reason Stop Dose Admin Albuterol/Ipratropium 1 amp 09/27/16 23:40 Duoneb - NEB Q6H PRN SHORTNESS OF BREATH Budesonide/Formoterol Fumarate 2 puff 09/28/16 10:00 09/28/16 10:56 Symbicort 160/4.5mcg - IH 2 puff BID OBED Administration Ceftriaxone Sodium 1 gm 09/28/16 10:00 09/28/16 13:30 Rocephin 1gm Ivpb (Pre-Docked) IVPB 1 gm DAILY OBED Administration Protocol Heparin Sodium (Porcine) 1,000 unit 09/28/16 14:13 Heparin - IVPUSH PRN PRN Heparin Heparin Sodium (Porcine) 5,000 unit 09/28/16 14:13 Heparin - IVPUSH PRN PRN Heparin Pantoprazole Sodium 100 mls @ 200 mls/hr 09/27/16 23:29 09/28/16 10:18 Protonix 40mg Ivpb (Pre-Docked) IVPB 200 mls/hr BID OBED Administration Metronidazole 100 mls @ 100 mls/hr 09/27/16 23:45 09/28/16 17:19 Flagyl 500mg Premixed Ivpb - IVPB 100 mls/hr Q8H-IV OBED Administration Heparin Sodium/Dextrose 500 mls @ 16 mls/hr 09/28/16 14:15 09/28/16 16:06 Heparin Infusion - IVPB 16 mls/hr TITR OBED Administration Protocol 800 UNITS/HR Lorazepam 1 mg 09/27/16 22:16 09/28/16 16:06 Ativan - PO 1 mg DAILY PRN Administration ANXIETY Metoprolol Succinate 100 mg 09/28/16 10:00 09/28/16 10:15 Toprol Xl - PO Not Given BID OBED Rosuvastatin Calcium 5 mg 09/28/16 22:00 Crestor - PO HS OBED Sertraline HCl 50 mg 09/28/16 10:00 09/28/16 10:16 Zoloft - PO Not Given DAILY OBED Sevelamer Carbonate 800 mg 09/28/16 08:00 09/28/16 17:18 Renvela - PO Not Given TIDCM [facility] Home Medications Medication Instructions Recorded Aspirin [ASA -] 81 mg PO DAILY 09/19/15 Apixaban [Eliquis] 2.5 mg PO BID 11/26/15 Lorazepam 1 mg PO DAILY PRN 02/17/16 Pantoprazole Sodium [Protonix] 40 mg PO DAILY 02/17/16 Rosuvastatin Calcium [Crestor] 5 mg PO HS 02/17/16 Sevelamer HCl [Renagel] 800 mg PO TIDCM 02/17/16 Sertraline HCl [Zoloft -] 50 mg PO DAILY 08/28/16 Budesonide/Formeterol Fumarate 2 inh PO BID 09/03/16 [SYMBICORT 160/4.5mcg -] Docusate Sodium [Colace -] 300 mg PO HS #90 tab 09/03/16 Metoprolol Succinate [Toprol XL -] 100 mg PO BID #60 tab 09/03/16 Polyethylene Glycol 3350 [Miralax 17 gm PO BID bottle 09/03/16 119 gm Btl -] PE: per resident's note ASSESSMENT AND PLAN: CAD with stents 3, end-stage renal disease on hemodialysis (Wednesdays, Fridays), who presents with diarrhea and red currant jelly stool and firing of icd being admitted to tele. # Acute Diarrhea , was send for C diff pcr on Flagyl # Bright red blood per rectum hold eliquis; Protonix IV BID, on IV heparin as per studio operation engineer ; who is trying to arrange transfer to [facility] for ICD reprograming? removal ? reinplantatiion of percutaneus IC # AFIB - Currently rate controlled Continue Metoprolol as blood pressure and on IV heparin # Severe Systolic CHF- s/p ICD firing # COPD On home O2 , Continue Symbicort , Continue Nebulizers PRN # ESRD on HD Nephrology on consult, HD in AM DVT PPX - SCDs
[2016-09-28] MEDS ORDERED: ROSUVASTATIN CA 5 MG TABLET (FP) PO SCH (22:00)
[2016-09-28] MEDS ORDERED: HEPARIN NA (PORCINE) 5,000 UNITS/ML 1ML VIAL ONE (23:52)
[2016-09-29] MEDS: PANTOPRAZOLE SODIUM 100 ML IVPB SCH
[2016-09-29] MEDS: METOPROLOL SUCCINATE 100 MG TAB.SR.24H (FP) PO SCH
[2016-09-29] MEDS: BUDESONIDE/FORMETEROL FUMARATE 160/4.5 mcg INHALER IH SCH (00:01)
[2016-09-29] MEDS: METRONIDAZOLE 500 MG PREMIXED 100 ML IVPB SCH (01:06)
--- NOTE | 2016-09-29 01:09 | PN ---
Progress Note (short form) - Note Progress Note: I was called by nurse for transfer of patient to [facility]. I spoke with Dr. Conklin who has agreed to accept the patient. Vital sing wnl, abdominal pain and tenderness has improved. lactic acid wnl, which makes ischemic colitis less likely. Patient stable for discharge.
[2016-09-29 01:47] VITALS: BP 130/49; PULSE 73
[2016-09-30 06:06] LABS: HEP B SURFACE AB Non Reactive (.)
--- NOTE | 2016-10-01 10:26 | DS ---
Physical Examination Vital Signs: Temperature 97.6 F 09/28/16 19:50 Pulse Rate 73 09/28/16 23:20 Respiratory Rate 18 09/28/16 23:20 Blood Pressure 130/49 09/28/16 23:20 O2 Sat by Pulse Oximetry (%) 99 09/28/16 19:50 CBCD WBC 21.4 K/mm3 (4.0-10.0) H 09/28/16 06:00 RBC 3.67 M/mm3 (3.60-5.2) 09/28/16 06:00 Hgb 11.6 GM/dL (10.7-15.3) 09/28/16 06:00 Hct 37.0 % (32.4-45.2) 09/28/16 06:00 MCV 100.9 fl (80-96) H 09/28/16 06:00 MCHC 31.4 g/dl (32.0-36.0) L 09/28/16 06:00 RDW 19.5 % (11.6-15.6) H 09/28/16 06:00 Plt Count 267 K/MM3 (134-434) 09/28/16 06:00 MPV 9.1 fl (7.5-11.1) 09/28/16 06:00 CMP Sodium 142 mmol/L (136-145) 09/28/16 10:35 Potassium 4.3 mmol/L (3.5-5.1) 09/28/16 10:35 Chloride 103 mmol/L (98-107) 09/28/16 10:35 Carbon Dioxide 15 mmol/L (21-32) L 09/28/16 10:35 Anion Gap 24 (8-16) H 09/28/16 10:35 BUN 76 mg/dL (7-18) H D 09/28/16 10:35 Creatinine 7.0 mg/dL (0.55-1.02) H 09/28/16 10:35 Creat Clearance w eGFR 5.62 (>60) 09/28/16 10:35 Random Glucose 70 mg/dL (74-106) L D 09/28/16 10:35 Calcium 7.6 mg/dL (8.5-10.1) L 09/28/16 10:35 Total Bilirubin 0.6 mg/dL (0.2-1.0) 09/28/16 10:35 AST 392 U/L (15-37) H D 09/28/16 10:35 ALT 233 U/L (12-78) H D 09/28/16 10:35 Alkaline Phosphatase 164 U/L (45-117) H 09/28/16 10:35 Total Protein 5.9 g/dl (6.4-8.2) L 09/28/16 10:35 Albumin 3.0 g/dl (3.4-5.0) L 09/28/16 10:35 CARDIAC ENZYMES Creatine Kinase 83 IU/L (26-192) 09/27/16 15:00 Troponin I 0.56 ng/ml (0.00-0.05) H 09/27/16 15:00 Current Medications Generic Name Dose Route Start Last Admin Trade Name Freq PRN Reason Stop Dose Admin Albuterol/Ipratropium 1 amp 09/27/16 23:40 Duoneb - NEB Q6H PRN SHORTNESS OF BREATH Budesonide/Formoterol Fumarate 2 puff 09/28/16 10:00 09/28/16 10:56 Symbicort 160/4.5mcg - IH 2 puff BID OBED Administration Ceftriaxone Sodium 1 gm 09/28/16 10:00 09/28/16 13:30 Rocephin 1gm Ivpb (Pre-Docked) IVPB 1 gm DAILY OBED Administration Protocol Heparin Sodium (Porcine) 1,000 unit 09/28/16 14:13 Heparin - IVPUSH PRN PRN Heparin Heparin Sodium (Porcine) 5,000 unit 09/28/16 14:13 Heparin - IVPUSH PRN PRN Heparin Pantoprazole Sodium 100 mls @ 200 mls/hr 09/27/16 23:29 09/28/16 10:18 Protonix 40mg Ivpb (Pre-Docked) IVPB 200 mls/hr BID OBED Administration Metronidazole 100 mls @ 100 mls/hr 09/27/16 23:45 09/28/16 17:19 Flagyl 500mg Premixed Ivpb - IVPB 100 mls/hr Q8H-IV OBED Administration Heparin Sodium/Dextrose 500 mls @ 16 mls/hr 09/28/16 14:15 09/28/16 16:06 Heparin Infusion - IVPB 16 mls/hr TITR OBED Administration Protocol 800 UNITS/HR Lorazepam 1 mg 09/27/16 22:16 09/28/16 16:06 Ativan - PO 1 mg DAILY PRN Administration ANXIETY Metoprolol Succinate 100 mg 09/28/16 10:00 09/28/16 10:15 Toprol Xl - PO Not Given BID OBED Rosuvastatin Calcium 5 mg 09/28/16 22:00 Crestor - PO HS [facility] Sertraline HCl 50 mg 09/28/16 10:00 09/28/16 10:16 Zoloft - PO Not Given DAILY OBED Sevelamer Carbonate 800 mg 09/28/16 08:00 09/28/16 17:18 Renvela - PO Not Given TIDCM [facility] Home Medications Medication Instructions Recorded Aspirin [ASA -] 81 mg PO DAILY 09/19/15 Apixaban [Eliquis] 2.5 mg PO BID 11/26/15 Lorazepam 1 mg PO DAILY PRN 02/17/16 Pantoprazole Sodium [Protonix] 40 mg PO DAILY 02/17/16 Rosuvastatin Calcium [Crestor] 5 mg PO HS 02/17/16 Sevelamer HCl [Renagel] 800 mg PO TIDCM 02/17/16 Sertraline HCl [Zoloft -] 50 mg PO DAILY 08/28/16 Budesonide/Formeterol Fumarate 2 inh PO BID 09/03/16 [SYMBICORT 160/4.5mcg -] Docusate Sodium [Colace -] 300 mg PO HS #90 tab 09/03/16 Metoprolol Succinate [Toprol XL -] 100 mg PO BID #60 tab 09/03/16 Polyethylene Glycol 3350 [Miralax 17 gm PO BID bottle 09/03/16 119 gm Btl -] CT of abdomen: No evidence of diverticular disease , colitis, or obstruction, no evidence of diverticulitis. no free fluid. Hospital course: admitted 09/27- transferred to [facility] on 09/29/2016 CAD with stents 3, end-stage renal disease on hemodialysis (Wednesdays, Fridays), who presents with diarrhea and red currant jelly stool and firing of icd being [facility]. # Acute Diarrhea , pending C diff pcr on Flagyl and IV Rocephin continue for now. # Bright red blood per rectum ; Hemoglobin stable on IV heparin ,on hold eliquis; Protonix IV BID, on IV heparin as per receiving team member ; patient was transferred to [facility] for ICD reprograming? removal ? reinplantatiion of percutaneus IC, patient was placed on Heparin drip since high risk for the patient having stroke. ( Arrangments of the transfer was done by ) # AFIB - Currently rate controlled Continue Metoprolol as blood pressure and on IV heparin continue # Severe Systolic CHF- s/p ICD firing transferred to [facility] for ICD reprograming? removal ? reinplantatiion of percutaneus IC # COPD On home O2 , Continue Symbicort , Continue Nebulizers PRN # ESRD on HD Nephrology on consult, HD as scheduled DVT PPX - SCDs Labs: CBC, BMP 09/28/16 06:00 09/28/16 10:35 Discharge Summary Reason For Visit: HYPOTENSION, DEFIBRILLATOR DISCHARGE Condition: Fair - Instructions Diet, Activity, Other Instructions: Mrs Renteria, you are being transferred to another facility for evaluation of your defibrillator and abdominal pain. Referrals: Brenton Frederick MD [Staff Physician] - Mumtaz Yan MD [Staff Physician] - Disposition: TRANSFER ACUTE CARE/OTHER HOSP - Home Medications Comprehensive Discharge Medication List: Ambulatory Orders Aspirin [ASA -] 81 mg PO DAILY 09/19/15 Apixaban [Eliquis] 2.5 mg PO BID 11/26/15 Lorazepam 1 mg PO DAILY PRN 02/17/16 Pantoprazole Sodium [Protonix] 40 mg PO DAILY 02/17/16 Rosuvastatin Calcium [Crestor] 5 mg PO HS 02/17/16 Sevelamer HCl [Renagel] 800 mg PO TIDCM 02/17/16 Sertraline HCl [Zoloft -] 50 mg PO DAILY 08/28/16 Budesonide/Formeterol Fumarate [SYMBICORT 160/4.5mcg -] 2 inh PO BID 09/03/16 Docusate Sodium [Colace -] 300 mg PO HS #90 tab 09/03/16 Metoprolol Succinate [Toprol XL -] 100 mg PO BID #60 tab 09/03/16 Polyethylene Glycol 3350 [Miralax 119 gm Btl -] 17 gm PO BID bottle 09/03/16 Albuterol 2.5/Ipratropium 0.5 [Duoneb -] 1 amp NEB Q6H PRN #0 amp 09/29/16 Budesonide/Formeterol Fumarate [SYMBICORT 160/4.5mcg -] 2 puff IH BID inhaler 09/29/16 Ceftriaxone [Rocephin 1Gm Ivpb (Pre-Docked)] 1 gm IVPB DAILY bag 09/29/16 Heparin - 1,000 unit IVPUSH PRN PRN #0 vial 09/29/16 Heparin - 5,000 unit IVPUSH PRN PRN #0 vial 09/29/16 Heparin Infusion - 500 ml IVPB TITR bag 09/29/16 Lorazepam [Ativan] 1 mg PO DAILY PRN #0 tablet MDD 1 09/29/16 Metoprolol Succinate [Toprol XL -] 100 mg PO BID tab 09/29/16 Pantoprazole Sodium [Protonix Ivpb -] 40 mg IVPB DAILY vial 09/29/16 Rosuvastatin [Crestor -] 5 mg PO HS tablet 09/29/16 Sertraline HCl [Zoloft -] 50 mg PO DAILY tablet 09/29/16 Sevelamer Carbonate [Renvela -] 800 mg PO TIDCM tab 09/29/16 This patient is new to me today: No Emergency Visit: Yes ED Registration Date: 09/27/16 Care time: The patient presented to the Emergency Department on the above date and was hospitalized for further evaluation of their emergent condition. Critical Care patient: No - Discharge Referral Referred to [facility] No
== END 2016-09-29 02:55 | disposition short-term general hospital (02) | DRG 314 ==
LOC: JER 13:22 → JERBED 17:16 → J4S 19:30
PROVIDERS: ADMIT Internal Medicine; ATTEND Internal Medicine
PROC: 5A1D00Z (ICD-10-PCS; principal; 2016-09-27)
DX: T82.118A Breakdown (mechanical) of other cardiac electronic device, initial encounter (principal); N18.6 End stage renal disease; K57.92 Diverticulitis of intestine, part unspecified, without perforation or abscess without bleeding; I13.2 Hypertensive heart and chronic kidney disease with heart failure and with stage 5 chronic kidney disease, or end stage renal disease; I50.20 Unspecified systolic (congestive) heart failure; K92.1 Melena; E78.5 Hyperlipidemia, unspecified; D64.9 Anemia, unspecified; I25.10 Atherosclerotic heart disease of native coronary artery without angina pectoris; Z95.5 Presence of coronary angioplasty implant and graft; Z99.2 Dependence on renal dialysis; Y83.8 Other surgical procedures as the cause of abnormal reaction of the patient, or of later complication, without mention of misadventure at the time of the procedure; F41.9 Anxiety disorder, unspecified; I48.2 Chronic atrial fibrillation; Z79.01 Long term (current) use of anticoagulants; J44.9 Chronic obstructive pulmonary disease, unspecified; Z99.81 Dependence on supplemental oxygen; D72.829 Elevated white blood cell count, unspecified; I95.9 Hypotension, unspecified; R10.84 Generalized abdominal pain
CPT/HCPCS: 36415; 71010-TC; 74176-TC; 80053; 82272; 82550; 83605; 83880; 84484; 85025; 85027; 85610; 85730; 86704; 86706; 86708; 86803; 86850; 86900; 86901; 87040; 87045; 87046; 87177; 87209; 87324; 87340; 87449; 93005; 93010; 94640; 99285-25; J1644